=== PATIENT | male | born 1965 | race Caucasian/White ===

== ENCOUNTER 2020-06-04 08:23 | Outpatient (REF) | payer SELFPAY | END 2020-06-04 08:24 | disposition home or self-care (01) | LOC: HO.LAB 08:23 | PROVIDERS: Visit Provider Internal Medicine | DX: Z20.828 Contact with and (suspected) exposure to other viral communicable diseases (principal) | CPT/HCPCS: C9803; U0003 ==

== ENCOUNTER 2023-08-05 11:37 | Inpatient (IN) | payer OTHER, SELFPAY ==
[2023-08-05] VITALS (7 sets, daily range): BP systolic 133–225; BP diastolic 76–126; PULSE 73–102; RESP 16–20; TEMP 35.8–36.8; O2SAT 96–99; BMI 36.5
--- NOTE | ~2023-08-05 | US_ITS ---
EXAMINATION: US VENOUS ULTRASOUND WITH DOPPLER LOWER EXTREMITY, BILATERAL CLINICAL INFORMATION: Bilateral lower extremity swelling. COMPARISON: None available. TECHNIQUE: Ultrasound of the deep veins is performed from the hip to the calf with compression sonography and color and pulse Doppler assessment. Spectral analysis with color-flow imaging is performed. FINDINGS: RIGHT: There is normal venous compression and respiratory variation and augmented flow. The visualized common femoral vein, superficial femoral vein, profunda femoral vein, popliteal vein, and the trifurcation region shows no evidence of deep venous thrombosis. There is no significant popliteal fossa cyst. Incidental finding of small lymph node in the right groin measuring 1.5 cm. Moderate soft tissue edema seen in the right calf LEFT: There is normal venous compression and respiratory variation and augmented flow. The visualized common femoral vein, superficial femoral vein, profunda femoral vein, popliteal vein, and the trifurcation region shows no evidence of deep venous thrombosis. There is no significant popliteal fossa cyst. There is slow rouleaux flow seen within the left greater saphenous vein internal finding of a small lymph node in the left groin measuring 2.6 cm in length. Mild edema seen in the left calf. If the patient's symptoms persist, followup ultrasound in 5 days 7 days might be of value to exclude proximal propagation from a non-visualized calf vein. US/US venous duplex LE BI IMPRESSION: No DVT demonstrated in bilateral lower extremity. Slow rouleaux flow seen in the left greater saphenous vein
--- NOTE | ~2023-08-05 | XR_ITS ---
EXAMINATION: XR CHEST CLINICAL INFORMATION: Shortness of breath. COMPARISON: None available. TECHNIQUE: AP view of the chest was obtained. FINDINGS: Normal heart size. No focal airspace opacities, pleural effusion or pneumothorax. Minimal subsegmental atelectasis in the left lower lobe. No acute osseous findings. Visualized upper abdomen is within normal limits. XR/XR chest 1V IMPRESSION: Minimal subsegmental atelectasis in the left lower lobe. Otherwise, unremarkable examination.
--- NOTE | 2023-08-05 11:56 | ED_ITS ---
HPI - General Adult General Chief complaint: Extremity Problem Stated complaint: Swelling in legs & hands Time Seen by Provider: 08/05/23 12:41 Source: patient Mode of arrival: ambulatory Limitations: no limitations History of Present Illness HPI narrative: This is 58 years old male presented to the emergency department with a chief complaint of lower extremity edema also elevated blood pressure. Symptoms have been ongoing through 3 days he does have history of hypertension he takes nifedipine 30 mg q 24 hour and carvedilol 12.5 Onset (ago): day(s) (3) Location: lower extremity Radiation: non-radiation Severity: moderate Pain Consistency: constant Relieving factors: none Exacerbating factors: none Associated symptoms: denies other symptoms Related Data Allergies Allergy/AdvReac Type Severity Reaction Status Date / Time No Known Allergies Allergy Verified 08/05/23 11:56 Review of Systems 2 Constitutional: Constitutional: Reports no additional constitutional complaints ENT: Reports system reviewed and no additional complaints, except as documented Cardiovascular: Cardiovascular: Reports no additional cardiovascular complaints [facility] Past Medical History Attestation statement: The following information was validated with the patient. [facility] Narrative: Hypertension Medical History Hypercholesterolemia Hypertension Diabetes Social History Social History Alcohol intake: current Alcohol type: beer Smoked in Last 30 Days: No Use of substances other than those prescribed or required for medical reasons: No Advance Directives: No Physical Exam ED Vital Signs: Vital Signs - 24 hr 08/05/23 11:57 08/05/23 13:25 08/05/23 14:26 Temperature 96.4 F L Pulse Rate 90 81 75 Respiratory Rate 16 18 20 Blood Pressure 225/120 H 218/126 H 181/105 H Pulse Oximetry 98 97 98 Oxygen Delivery Method Room Air Room Air Room Air BMI result Body Mass Index 36.5 Const General: cooperative Nutritional Appearance: average body habitus Orientation/consciousness: patient oriented x3 Limitations: no limitations HENMT Head: Yes normal to inspection General nose exam: Normal external nose present Mouth: Normal oral and palatal mucosa present Neck Neck: Yes normal visual inspection Chest Chest palpation & inspection: normal inspection of the chest Resp Effort & Inspection: normal respiratory effort Auscultation: clear to auscultation bilaterally Percussion: percussion normal Cardio Jugular venous distension: no JVD Rate: regular rate Rhythm: regular rhythm GI Inspection: Yes normal to inspection Palpation (GI): Soft to palpation Skin General skin exam: no rashes or lesions noted Lesions: no lesions Rashes: no rashes Neuro General: patient oriented x3 Cranial nerves: Yes CN's II-XII intact bilaterally Extrem Other: 3+ edema bilaterally Course Course Course Narrative: RME: 58 year-old M w/PMHx HTN, DM, presenting to the ED c/o bilateral hand and leg swelling worsening over the past few weeks. denies SOB. Saw PCP last week (mejias Brittaney) and had outpatient labs but has no results yet per patient. Denies RODRIGUEZ, visual changes. Patient is poor historian Very HTNsive in triage 225/120 & 201/116 (patient unsure if he took his meds this morning) Labs, UA, US ordered Full HPI, ROS and PE to be performed by primary ED provider. Medications Administered Generic Name Dose Route Start Last Admin Trade Name Freq PRN Reason Stop Dose Admin Enoxaparin Sodium 40 mg 08/05/23 15:30 08/05/23 15:22 Enoxaparin Sodium 40 Mg/0.4 Ml Syringe SUBCUT 40 mg Q24H SWETHA Administration Sodium Chloride 3 ml 08/05/23 16:00 08/05/23 15:24 0.9 % Sodium Chloride Flush 3 Ml Syringe IVFLUSH 3 ml QSHIFT SWETHA Administration Discontinued Medications Generic Name Dose Route Start Last Admin Trade Name Freq PRN Reason Stop Dose Admin Clonidine HCl 0.1 mg 08/05/23 12:51 08/05/23 13:02 Clonidine Hcl 0.1 Mg Tablet PO 08/05/23 12:52 0.1 mg ONCE ONE Administration Protocol Furosemide 40 mg 08/05/23 12:44 08/05/23 13:22 Furosemide 40 Mg/4 Ml Vial IVPUSH 08/05/23 12:45 40 mg ONCE ONE Administration Protocol Labetalol HCl 200 mg 08/05/23 15:15 08/05/23 15:22 Labetalol Hcl 200 Mg Tablet PO 08/05/23 15:16 200 mg ONCE ONE Administration Protocol Medical Decision Making Medical Decision Making [facility] Narrative: Patient presented with lower extremity edema is also very hypertensive we get lab EKG, Differential Diagnosis Differential Diagnoses: The differential diagnosis associated with the presentation includes DVT/nephrotic syndrome hypertensive urgency Admission/Observation Consideration of admission/observation: Escalation of care including admission/observation considered Consult Healthcare Provider Management of the patient was discussed with: Hospitalist Lab Data MDM Lab Attestation statement: I reviewed the patient's lab results. 08/05/23 12:15 08/05/23 12:15 Labs: Lab Results 08/05/23 Range/Units 12:15 WBC 6.1 (4.8-10.8) X10*3/uL RBC 4.49 L (4.60-5.80) X10*6/uL Hgb 12.9 L (14.0-18.0) g/dl Hct 38.5 L (42.0-52.0) % MCV 85.7 (80.0-98.0) fL MCH 28.7 (27.0-33.0) pg MCHC 33.5 (31.0-36.0) g/dl RDW 14.0 (11.0-16.0) % Plt Count 269 (160-400) X10*3/uL MPV 9.8 (9.4-12.4) fL Immature Gran % (Auto) 0.3 (0.0-0.4) % Neut % (Auto) 61.6 (45-73) % Lymph % (Auto) 28.7 (20-40) % [place] % (Auto) 7.1 (2-11) % Eos % (Auto) 2.0 (0-4) % Baso % (Auto) 0.3 (0-2) % Lymph # (Auto) 1.8 (1.2-4.9) X10*3/uL [place] # (Auto) 0.4 (0.1-1.2) X10*3/uL Eos # (Auto) 0.1 (0.0-0.4) X10*3/uL Baso # (Auto) 0.0 (0.0-0.2) X10*3/uL Abs Immat Gran (auto) 0.02 (0.00-0.03) X10*3/uL Absolute Neuts (auto) 3.8 (2.0-8.3) x10*3/uL Absolute Nucleated RBC 0.000 (0.0-0.012) X10*3/uL Nucleated RBC % (auto) 0.0 (0.0-0.2) /100WBC PT 10.2 L (11.1-13.3) SEC INR 0.8 L (0.9-1.1) Sodium 139 (135-145) mmol/L Potassium 3.8 (3.3-5.1) mmol/L Chloride 110 H (96-108) mmol/L Carbon Dioxide 23 (22-29) mmol/L Anion Gap 10 L (12-20) BUN 25 H (9-16) mg/dL Creatinine 1.68 H (0.5-1.4) mg/dL Estim Creat Clear Calc 55.9 Estimated GFR 42 Random Glucose 205 H (60-115) mg/dL Calcium 8.8 (8.4-10.2) mg/dL Magnesium 2.0 (1.6-2.6) mg/dL Total Bilirubin 0.2 (0.0-1.0) mg/dL Direct Bilirubin < 0.2 (0.0-0.5) mg/dL AST 15 (5-37) U/L ALT 16 (0-40) U/L Alkaline Phosphatase 102 (39-117) U/L Troponin I High Sens 12.7 (<3.5-35.0) ng/L B-Natriuretic Peptide 111 H (<100) pg/mL Total Protein 5.7 L (6.5-8.0) g/dL Albumin 2.4 L (3.5-5.0) g/dL Independent Interpretation I performed an independent interpretation of an: EKG, Plain X-Ray and Ultrasound Radiology Impression Discussion of test interpretation with radiology: I have reviewed the radiologist's reading. Independent Historian Clinical information obtained from an independent historian. History obtained from or confirmed by: Other (sister) Chronic Conditions Patient?s care impacted by: Hypertension Critical Care Time Critical Care Time Critical Care Time: Yes Total Critical Care Time: 60 Attestation: IV lasix,treatment of hypertensive urgency Discharge Plan Discharge Clinical Impression: Anasarca, Hypertensive urgency Patient Disposition: Admitted As Inpatient
--- NOTE | 2023-08-05 12:03 | ECG_ITS ---
Test Reason : HTNSIVE Blood Pressure : / mmHG Vent. Rate : 085 BPM Atrial Rate : 085 BPM P-R Int : 154 ms QRS Dur : 088 ms QT Int : 366 ms P-R-T Axes : 005 -05 014 degrees QTc Int : 435 ms Normal sinus rhythm Minimal voltage criteria for LVH, may be normal variant ( R in aVL ) Borderline ECG No previous ECGs available Referred By: Sendy Hollingsworth Electronically Signed By:TRACEY PARKS MD
[2023-08-05 12:20] LABS: MANUAL DIFF FLAG NO
[2023-08-05 12:22] LABS: Basophils Percent Auto 0.3 % (0-2); Eosinophils Absolute Auto 0.1 X10*3/uL (0.0-0.4); Hematocrit 38.5 % (42.0-52.0); Hemoglobin 12.9 g/dl (14.0-18.0); Imm Gran Abs Auto 0.02 X10*3/uL (0.00-0.03); Imm Gran Pct Auto 0.3 % (0.0-0.4); Lymphocytes Absolute Auto 1.8 X10*3/uL (1.2-4.9); Lymphocytes Percent Auto 28.7 % (20-40); Mean Corpuscular HGB Conc 33.5 g/dl (31.0-36.0); Mean Corpuscular Hemoglobin 28.7 pg (27.0-33.0); Mean Corpuscular Volume 85.7 fL (80.0-98.0); Mean Platelet Volume 9.8 fL (9.4-12.4); Monocytes Absolute Auto 0.4 X10*3/uL (0.1-1.2); Monocytes Percent Auto 7.1 % (2-11); Neutrophils Absolute Auto 3.8 x10*3/uL (2.0-8.3); Neutrophils Percent Auto 61.6 % (45-73); Platelet Count 269 X10*3/uL (160-400); Red Blood Count 4.49 X10*6/uL (4.60-5.80); White Blood Count 6.1 X10*3/uL (4.8-10.8)
[2023-08-05 12:27] LABS: INTERNATIONAL NORM RATIO 0.8 (0.9-1.1); Prothrombin Time 10.2 SEC (11.1-13.3)
[2023-08-05 12:37] LABS: Alanine Aminotransferase 16 U/L (0-40); Albumin Level 2.4 g/dL (3.5-5.0); Alkaline Phosphatase 102 U/L (39-117); Anion Gap 10 (12-20); Aspartate Amino Transferase 15 U/L (5-37); Bilirubin Direct < 0.2 mg/dL (0.0-0.5); Bilirubin Total 0.2 mg/dL (0.0-1.0); Blood Urea Nitrogen 25 mg/dL (9-16); Calcium 8.8 mg/dL (8.4-10.2); Carbon Dioxide 23 mmol/L (22-29); Chloride 110 mmol/L (96-108); Creatinine Clr Calc Pharmacy 55.9; Estimated Glomerular Filt Rate 42; Glucose Random 205 mg/dL (60-115); Potassium 3.8 mmol/L (3.3-5.1); Sodium 139 mmol/L (135-145); Total Protein 5.7 g/dL (6.5-8.0)
[2023-08-05 12:43] LABS: B Type Natriuretic Peptide 111 pg/mL (<100)
[2023-08-05 12:44] LABS: Troponin-I High Sensitivity 12.7 ng/L (<3.5-35.0)
[2023-08-05] MEDS: cloNIDine HCL 0.1 MG TABLET PO (13:02)
--- NOTE | 2023-08-05 13:03 | PC.NURSE ---
pt medicated for bp, but unable to give lasix yet as pt is having an US and unable to put in iv in yet
--- NOTE | 2023-08-05 13:08 | PC.NURSE ---
patient a&ox3, pt notable htn in triage, BLE 3+ pitting edema, left hand 3+ edema noted as well, pt also has distended firm abdomen-denies pain to area, lungs clear/diminished throughout, iv to be inserted and pt will be medicated upon insertion, quality assurance monitor body intact, call celestin within reach, will continue to monitor
[2023-08-05] MEDS: Furosemide 40 MG/4 ML VIAL IVPUSH (13:22)
--- NOTE | 2023-08-05 14:54 | P.HPHOSP_ITS ---
History of Present Illness Date of Service: 08/05/23 Chief Complaint: Shortness of breath, leg edema The 58-year-old male with hypertension on Nifedipine 30 mg daily, Lisinopril 40 mg daily, and Coreg 12.5 mg twice daily, as well as hyperlipidemia and diabetes, presents with increasing leg edema for 3 to 4 days, worsened since yesterday. He also describes intermittent shortness of breath with exertion but no paroxysmal nocturnal dyspnea (PND) or orthopnea. He states that he had an accident last March and as a result has had swelling of the left leg, but now has swelling in both legs. Ultrasound of the legs is negative for deep vein thrombosis (DVT), BNP is 111, and chest X-ray shows no discrete signs of heart failure. It is also noteworthy that his blood pressure was 225/110 on arrival and is now 183/110 following Clonidine 0.1 mg and labetalol 20 mg. Creatinine is 1.68, last know Creatine in 2021 was 1.2 Review of Systems 2 Review of Systems: Gen: no fever Resp: no sob, no cough CV: no chest, + VAZQUEZ, + leg edema GI: No n/v, no abd pain Neuro: No confusion Yes all other systems are reviewed and are negative [facility] Medical History Hypercholesterolemia Hypertension Diabetes Social History Alcohol intake: current Alcohol type: beer Smoked in Last 30 Days: No Use of substances other than those prescribed or required for medical reasons: No Advance Directives: No Meds Allergies Allergy/AdvReac Type Severity Reaction Status Date / Time No Known Allergies Allergy Verified 08/05/23 11:56 Home Medications Medication Instructions Recorded Confirmed Last Taken Type acetaminophen 325 mg tablet 650 mg PO Q4H PRN Pain (Scale 08/05/23 08/05/23 Unknown History Score 1-3) atorvastatin 80 mg tablet 80 mg PO BEDTIME 08/05/23 08/05/23 08/04/23 History carvedilol 12.5 mg tablet 12.5 mg PO BID 08/05/23 08/05/23 08/04/23 History diclofenac sodium 1 % topical gel 1 g topical TID PRN pain 08/05/23 08/05/23 Unknown History glipizide 10 mg tablet, extended 10 mg PO DAILY 08/05/23 08/05/23 08/04/23 History release 24 hr ipratropium 0.5 mg-albuterol 3 mg 3 ml inhalation QID PRN Shortness 08/05/23 08/05/23 Unknown History (2.5 mg base)/3 mL nebulization Of Breath Or Wheezing soln lisinopril 40 mg tablet 40 mg PO DAILY 08/05/23 08/05/23 08/04/23 History loratadine 10 mg tablet 10 mg PO DAILY 08/05/23 08/05/23 08/04/23 History metformin 1,000 mg tablet 1,000 mg PO BIDWM 08/05/23 08/05/23 08/04/23 History nifedipine 30 mg tablet,extended 30 mg PO DAILY 08/05/23 08/05/23 08/04/23 History release sertraline 50 mg tablet 50 mg PO BEDTIME 08/05/23 08/05/23 08/04/23 History Physical Exam 2 Vital Signs and Narrative: Vital Signs: Last Vital Signs Temp 96.4 F L 08/05/23 11:57 Pulse 75 08/05/23 14:26 Resp 20 08/05/23 14:26 BP 181/105 H 08/05/23 14:26 Pulse Ox 98 08/05/23 14:26 O2 Del Method Room Air 08/05/23 14:26 BMI result Body Mass Index 36.5 Constitutional: Alert, in no distress, overweight. Mental Status: Oriented to person, place and time. Eyes: Pupils are equal, round and reactive to light. Ear, Nose and Throat: Oropharynx clear, mucous membranes moist. Ears and nose without eformities. Trachea midline. Respiratory: Clear to auscultation. No wheezing, rales or rhonchi. Cardiovascular: S1 S2 regular. No murmurs, rubs or gallops 3 + leg edema Gastrointestinal: Abdomen soft, non-tender, non-distended. Normal bowel sounds.? Neurologic: Cranial nerves II-XII grossly intact. No focal neurological deficits. Moves all extremities spontaneously.? Skin: No rashes or lesions.? Musculoskeletal: No cyanosis or clubbing. Psychiatric: Normal mood and affect? Results Labs 08/05/23 12:15 08/05/23 12:15 Labs: Laboratory Results - last 24 hr 08/05/23 12:15 MCV 85.7 MCH 28.7 MCHC 33.5 RDW 14.0 Plt Count 269 MPV 9.8 Immature Gran % (Auto) 0.3 Neut % (Auto) 61.6 Lymph % (Auto) 28.7 [place] % (Auto) 7.1 Eos % (Auto) 2.0 Baso % (Auto) 0.3 Lymph # (Auto) 1.8 [place] # (Auto) 0.4 Eos # (Auto) 0.1 Baso # (Auto) 0.0 Abs Immat Gran (auto) 0.02 Absolute Neuts (auto) 3.8 Absolute Nucleated RBC 0.000 Nucleated RBC % (auto) 0.0 PT 10.2 L INR 0.8 L Anion Gap 10 L Estim Creat Clear Calc 55.9 Estimated GFR 42 Random Glucose 205 H Calcium 8.8 Magnesium 2.0 Total Bilirubin 0.2 Direct Bilirubin < 0.2 AST 15 ALT 16 Alkaline Phosphatase 102 Troponin I High Sens 12.7 B-Natriuretic Peptide 111 H Total Protein 5.7 L Albumin 2.4 L Imaging Radiologist's Impressions: Impressions Venous Duplex 08/05/23 12:58 IMPRESSION: No DVT demonstrated in bilateral lower extremity. Slow rouleaux flow seen in the left greater saphenous vein Chest X-Ray 08/05/23 13:57 IMPRESSION: Minimal subsegmental atelectasis in the left lower lobe. Otherwise, unremarkable examination. Assessment and Plan (1) Hypertensive urgency: Status: Acute (2) Heart failure: Status: Acute Plan A 58-year-old male with hypertension (HTN) on Nifedipine 30 mg daily, Lisinopril 40 mg daily, Coreg 12.5 mg twice daily, hyperlipidemia (HLD), and diabetes presents with increasing leg edema, shortness of breath, and hypertensive urgency. He is diagnosed with hypertensive emergency with leg edema and heart failure. He is admitted, and an echocardiogram is requested. Cardiology consult. IV Lasix is continued, and BMP and renal function are closely monitored. Coreg and Nifedipine are continued, with dose adjustments as needed. It is noted that Nifedipine, a calcium channel ramesh (CCB), can worsen leg edema. Hydralazine is added for blood pressure control, and Lisinopril is held until baseline renal function is established. Hyperlipidemia, Lipitor is continued. Diiabetes, he is on Glipizide XL 10 and metformin 1 gm bid, but metformin is held due to renal failure. Subcutaneous insulin (SSI) is initiated, Glipizide is resumed, and a diabetic diet is followed. The patient is admitted for at least 2 midnights for management of acute hypertensive emergency needing IV therapy. DVT prophylaxis with Lovenox is initiated. He is designated as a full code. Quality Stroke Does the patient have a stroke diagnosis?: No VTE Prior VTE?: No VTE Risk Level:: Medical - moderate - high VTE Device Contraindication: Treatment Not Indicated VTE Drug Contraindication: N/A - Med Ordered
[2023-08-05] MEDS: Enoxaparin Sodium 40 MG/0.4 ML SYRINGE SUBCUT (15:22)
[2023-08-05] MEDS: Labetalol HCL 200 MG TABLET PO (15:22)
--- NOTE | 2023-08-05 15:23 | PC.NURSE ---
pt medicated per order
[2023-08-05] MEDS: 0.9 % Sodium Chloride Flush 3 ML SYRINGE IVFLUSH ×2 (15:24→23:29)
--- NOTE | 2023-08-05 16:18 | PHA.MEDREC ---
Pharmacy Consult ? Medication Reconciliation Pharmacy has completed the medication reconciliation. spoke with patients regarding home med list. had a list of medications at home. listed all meds. patient is on lisinopril but looks like he has not filled this medication since february.
[2023-08-05 17:03] LABS: Glucose, Whole Blood 127 mg/dL (60-115)
[2023-08-05 21:11] LABS: Glucose, Whole Blood 250 mg/dL (60-115)
[2023-08-05] MEDS: Insulin Lispro 100 UNIT/ML 3 ML VIAL SUBCUT (21:11)
[2023-08-05] MEDS: Sertraline HCL 50 MG TABLET PO (21:12)
[2023-08-05] MEDS: Atorvastatin Calcium 80 MG TABLET PO (21:12)
[2023-08-05] MEDS: hydrALAZINE HCl 10 MG TABLET 20 MG PO (21:12)
[2023-08-05] MEDS: carvediloL 12.5 MG TABLET PO (21:12)
[2023-08-05] MEDS: Melatonin 3 MG TABLET 6 MG PO (21:12)
[2023-08-06] VITALS (10 sets, daily range): BP systolic 121–183; BP diastolic 73–103; PULSE 64–83; RESP 16–18; TEMP 36.3–37.2; O2SAT 96–98
--- NOTE | 2023-08-06 07:00 | CA_ITS ---
Transthoracic Echocardiogram Patient (Last, First, Middle): Dillon Lucio, Gender: Male Date of : 1965 Age: 58 Procedure Date: 08/06/2023 Procedure Type: Transthoracic Echocardiogram [place] [facility] [place]: 172.72 cm Weight: 108.86 kg BSA: 2.21 m2 Heart Rate: 65 bpm BP: 183 / 110 mmHg [employer] Salesperson: BRYANT Referring MD: Dashawn Juárez MD Assistant Librarian: Lewis Willett MD Symptoms: leg edema, heart failure Study Quality: Good ECG Rhythm: Sinus Conclusions: - 1. Low normal LV ejection fraction 50-55% with severe LVH with impaired relaxation filling pattern 2. Normal cardiac valvular Dopplers 3. Normal measured RV systolic pressure 4. Upper limits of normal ascending aortic size at 3.6 cm 5. No gross pericardial effusion Findings Left Ventricle Normal left ventricular size and systolic function. There is severely increased left ventricular wall thickness. The visually estimated ejection fraction is between 50-55%. Spectral Doppler is indicative of an impaired relaxation filling pattern. E/E prime ratio is between 8 and 15 consistent with indeterminate filling pressures. Peak GLS is -17.3%, which is borderline low. Right Ventricle Normal right ventricular cavity size and systolic function. Atria The left atrium is likely dilated. There is no evidence of interatrial shunt. The right atrium is normal in size. Aortic Valve There is mild calcification of the aortic valve. There is no aortic valve stenosis. There is no aortic valve regurgitation. Mitral Valve There is mild anterior and posterior mitral leaflet thickening. There is trace mitral valve regurgitation. There is no mitral valve stenosis. Pulmonic Valve The pulmonic valve is likely normal. Tricuspid Valve Likely normal tricuspid valve structure and function. There is trace tricuspid valve regurgitation. The right ventricular systolic pressure is 16 mmHg. Normal right atrial pressure. There is no evidence of pulmonary hypertension. Great Vessels The pulmonary artery was not well visualized. Venous The inferior vena cava is normal in size and collapses greater than 50% with inspiration. Pericardium/Pleural There is no evidence of pericardial effusion. Prior Study Comparison No prior study available for comparison. Measurements 2D Linear Measurements IVSd: 1.57 0.6-0.9/0.6-1.0 cm LVIDd: 4.19 3.9-5.3/4.2-5.9 cm LVIDd Index: 1.90 2.4-3.2/2.2-3.1 cm/m2 LVIDs: 3.06 2.0-3.6 cm LVPWd: 1.65 0.7-1.1 cm LA Diam: 4.40 2.7-3.8/3.0-4.0 cm LAIDs Index: 1.99 1.5-2.3 cm/m2 LV Mass: 346.64 67-162/88-224 g LV Mass Index: 156.85 43-95/49-115 g/m2 LVOT Diam: 2.60 3.0+(-)1.3 cm 2D Systolic Function EF 4C: 51.40 >55% EF 2C: 53.20 >55% EF BiP: 52.60 >55% Mitral Valve MV Pk E: 0.36 MV PK A: 0.87 MV Decel Time: 192.00 E/A: 0.40 E'Lateral: 5.33 E'Medial: 5.00 E/E' Med: 7.30 E/E' Lat: 6.80 PHT: 56.00 MVA PHT: 3.93 Decel Love: 3.03 Aortic Valve AoV Pk Mason: 1.46 AoV Mn Mason: 0.97 AoV VTI: 0.37 AoV Pk Grad: 9.00 Aov Mn Grad: 4.00 MYRTLE Cont.VTI: 3.59 LVOT LVOT Pk Mason: 1.01 LVOT Mn Mason: 0.60 LVOT VTI: 0.25 LVOT Pk Grad: 4.00 LVOT Mn Grad: 2.00 LVOT Diam: 2.60 LVOT Area: 5.31 Diastolic Function MV Pk E: 0.36 MV Pk A: 0.87 E/A: 0.40 E'Medial: 5.00 E/E' Med: 7.30 E' Laterial: 5.33 E/E' Lat: 6.80 Right Ventricle TAPSE (mm): 24.40 TVS' Mason: 14.70 Tricuspid Valve TR Pk Mason: 1.79 TR Pk Grad: 13.00 RA Press: 3.00 RVSP: 16.00 Great Vessels Aorta Sinus of Valsalva: 3.60 2.0-3.5 cm Ao Asc: 3.60 2.1-3.4 cm Pulmonary Valve PV Pk Mason: 0.98 Peak PV Grad: 4.00 Updated in Other Vendor System with Status of Final Lewis Willett MD electronically signed on 08/06/2023 10:40:10 AM with status of Final
[2023-08-06 07:01] LABS: Anion Gap 11 (12-20); Blood Urea Nitrogen 25 mg/dL (9-16); Calcium 7.9 mg/dL (8.4-10.2); Carbon Dioxide 22 mmol/L (22-29); Chloride 111 mmol/L (96-108); Creatinine Clr Calc Pharmacy 65.2; Estimated Glomerular Filt Rate 50; Glucose Random 120 mg/dL (60-115); Potassium 3.9 mmol/L (3.3-5.1); Sodium 140 mmol/L (135-145)
[2023-08-06] MEDS: glipiZIDE XL 10 MG TAB.ER.24 PO (07:28)
[2023-08-06] MEDS: Furosemide 40 MG/4 ML VIAL IVPUSH (07:28)
[2023-08-06] MEDS: NIFEdipine ER 30 MG TAB.ER.24 PO (07:28)
[2023-08-06] MEDS: carvediloL 12.5 MG TABLET PO ×2 (07:28→19:48)
[2023-08-06] MEDS: hydrALAZINE HCl 10 MG TABLET 20 MG PO ×3 (07:28→19:48)
[2023-08-06] MEDS: Loratadine 10 MG TABLET PO (07:28)
[2023-08-06] MEDS: 0.9 % Sodium Chloride Flush 3 ML SYRINGE IVFLUSH ×3 (07:31→19:48)
[2023-08-06 07:49] LABS: Glucose, Whole Blood 130 mg/dL (60-115)
--- NOTE | 2023-08-06 09:43 | MHC.CM.PN ---
Pt lives at home alone, self-care and will transport himself home (car is in lot). HCP completed with pt, now on file. PCP: Dr. Chris Boucher
--- NOTE | 2023-08-06 09:54 | P.PNIM_ITS ---
Subjective Subjective Date of Service: 08/06/23 Interval History: He is feeling a lot better, still has swelling in the legs and blood pressures are better too Physical Exam 2 Vital Signs: Vital Signs: Last Vital Signs Temp 97.6 F 08/06/23 07:01 Pulse 64 08/06/23 07:01 Resp 18 08/06/23 07:01 BP 145/80 H 08/06/23 08:27 Pulse Ox 98 08/06/23 07:01 O2 Del Method Room Air 08/06/23 07:01 O2 Flow Rate 98 08/06/23 07:01 FiO2 98 08/06/23 07:01 BMI result Body Mass Index 36.5 General: AO X 3, no acute distress Resp: rales at bases CVS: S1,S2,RRR, 2+ leg edema GI: +BS, NT, no distention Skin: No rash Neuro: motor grossly intact Psych: appropriate affect Objective Data Active Medications Albuterol/Ipratropium (Albuterol/Iprat 2.5/0.5mg 3 Ml Ampul.Neb) 3 ml INHALE RQID PRN PRN Reason: Shortness Of Breath Or Wheezing Atorvastatin Calcium (Atorvastatin Calcium 80 Mg Tablet) 80 mg PO BEDTIME [facility] Last Admin: 08/05/23 21:12 Dose: 80 mg Documented By: NIA Carvedilol (Carvedilol 12.5 Mg Tablet) 12.5 mg PO BID [facility]; Protocol Last Admin: 08/06/23 07:28 Dose: 12.5 mg Documented By: KRISSY Dextrose (Dextrose 50 % 25 Gm/50 Ml Syringe) 25 gm IVPUSH Q15M PRN; Protocol PRN Reason: per Hypoglycemia Standing Ord. Enoxaparin Sodium (Enoxaparin Sodium 40 Mg/0.4 Ml Syringe) 40 mg SUBCUT Q24H [facility] Last Admin: 08/05/23 15:22 Dose: 40 mg Documented By: ZOHRA Furosemide (Furosemide 40 Mg/4 Ml Vial) 40 mg IVPUSH DAILY [facility]; Protocol Last Admin: 08/06/23 07:28 Dose: 40 mg Documented By: KRISSY Glipizide (Glipizide Xl 10 Mg Tab.Er.24) 10 mg PO DAILY [facility] Last Admin: 08/06/23 07:28 Dose: 10 mg Documented By: KRISSY Glucose (Glucose Gel 15 Gm Gel..Gram.) 15 gm PO Q15M PRN; Protocol PRN Reason: per Hypoglycemia Standing Ord. Hydralazine HCl (Hydralazine Hcl 10 Mg Tablet) 20 mg PO TID [facility]; Protocol Last Admin: 08/06/23 07:28 Dose: 20 mg Documented By: KRISSY Insulin Human Lispro (Insulin Lispro 100 Unit/Ml 3 Ml Vial) 0 unit SUBCUT QIDACHS [facility]; Protocol Last Admin: 08/06/23 07:43 Dose: Not Given Documented By: KRISSY Non-Admin Reason: No Insulin Coverage Loratadine (Loratadine 10 Mg Tablet) 10 mg PO DAILY [facility] Last Admin: 08/06/23 07:28 Dose: 10 mg Documented By: KRISSY Melatonin (Melatonin 3 Mg Tablet) 6 mg PO BEDTIME [facility] Last Admin: 08/05/23 21:12 Dose: 6 mg Documented By: NIA Nifedipine (Nifedipine Er 30 Mg Tab.Er.24) 30 mg PO DAILY [facility] Last Admin: 08/06/23 07:28 Dose: 30 mg Documented By: KRISSY Sertraline HCl (Sertraline Hcl 50 Mg Tablet) 50 mg PO BEDTIME [facility] Last Admin: 08/05/23 21:12 Dose: 50 mg Documented By: NIA Sodium Chloride (0.9 % Sodium Chloride Flush 3 Ml Syringe) 3 ml IVFLUSH QSHIFT [facility] Last Admin: 08/06/23 07:31 Dose: 3 ml Documented By: KRISSY Labs 08/05/23 12:15 08/06/23 06:10 Labs: Laboratory Results - last 24 hr 08/05/23 08/05/23 08/05/23 12:15 16:54 20:53 MCV 85.7 MCH 28.7 MCHC 33.5 RDW 14.0 Plt Count 269 MPV 9.8 Immature Gran % (Auto) 0.3 Neut % (Auto) 61.6 Lymph % (Auto) 28.7 [place] % (Auto) 7.1 Eos % (Auto) 2.0 Baso % (Auto) 0.3 Lymph # (Auto) 1.8 [place] # (Auto) 0.4 Eos # (Auto) 0.1 Baso # (Auto) 0.0 Abs Immat Gran (auto) 0.02 Absolute Neuts (auto) 3.8 Absolute Nucleated RBC 0.000 Nucleated RBC % (auto) 0.0 Hold Purple Top PT 10.2 L INR 0.8 L Anion Gap 10 L Estim Creat Clear Calc 55.9 Estimated GFR 42 POC Glucose 127 H 250 H Random Glucose 205 H Calcium 8.8 Magnesium 2.0 Total Bilirubin 0.2 Direct Bilirubin < 0.2 AST 15 ALT 16 Alkaline Phosphatase 102 Troponin I High Sens 12.7 B-Natriuretic Peptide 111 H Total Protein 5.7 L Albumin 2.4 L 08/06/23 08/06/23 06:10 07:05 MCV MCH MCHC RDW Plt Count MPV Immature Gran % (Auto) Neut % (Auto) Lymph % (Auto) [place] % (Auto) Eos % (Auto) Baso % (Auto) Lymph # (Auto) [place] # (Auto) Eos # (Auto) Baso # (Auto) Abs Immat Gran (auto) Absolute Neuts (auto) Absolute Nucleated RBC Nucleated RBC % (auto) Hold Purple Top SEE NOTE PT INR Anion Gap 11 L Estim Creat Clear Calc 65.2 Estimated GFR 50 POC Glucose 130 H Random Glucose 120 H Calcium 7.9 L D Magnesium Total Bilirubin Direct Bilirubin AST ALT Alkaline Phosphatase Troponin I High Sens B-Natriuretic Peptide Total Protein Albumin Assessment and Plan (1) Heart failure: Status: Acute (2) Hypertensive urgency: Status: Acute (3) Anasarca: Status: Acute Plan A 58-year-old male with hypertension (HTN) on Nifedipine 30 mg daily, Lisinopril 40 mg daily, Coreg 12.5 mg twice daily, hyperlipidemia (HLD), and diabetes presents with increasing leg edema, shortness of breath, and hypertensive urgency. Hypertensive emergency with leg edema and heart failure. Better following IV lasix, will have echocardiogram. Continue Coreg, aldactone 25 mg daily per cardiology. Follow i/o, weight, low salt diet. Daily BMP. Hypertension emergency--improved, continue Nifedipine, Hydralazine, Coreg.. He was on Lisinopril 40 daily, now on hold due to renal failure, however if renal function continues to improve, will restart tomorrow. Hyperlipidemia, Lipitor is continued. Diiabetes, he is on Glipizide XL 10 and metformin 1 gm bid, but metformin is held due to renal failure. Subcutaneous insulin (SSI) is initiated, diabetic diet Need for inpatient acute heart failure, needing DVT prophylaxis with Lovenox is initiated. He is designated as a full code. Quality Stroke Does the patient have a stroke diagnosis?: No VTE Prior VTE?: No VTE Risk Level:: Medical - moderate - high VTE Device Contraindication: Treatment Not Indicated VTE Drug Contraindication: N/A - Med Ordered
--- NOTE | 2023-08-06 09:59 | MHC.CLN ---
NUTRITION ADDED 2 G SODIUM TO DIET ORDER DUE TO HTN AND EDEMA. DIET=DIABETIC 1800 KCALS, 2 G SODIUM.
--- NOTE | 2023-08-06 11:26 | PM.CNCAR ---
History of Present Illness History of Present Illness Date of Service: 08/06/23 Requesting physician: Dashawn Juárez Consult reason: hypertension and congestive heart failure Chief complaint: HTN emergency, leg edema Narrative: I was consulted to see Dillon in cardiology consultation today for new onset CHF and hypertensive urgency. 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 He said he has longstanding hypertension which has not been controlled as outpatient. Denies any history of sleep apnea. Patient came to the hospital as he was having increased shortness of breath and bilateral lower extremity swelling. He says since his injury and left lower extremity swelling but noticed that over the last few days he had post leg swollen and was having pain. His also having increased shortness of breath and shortness of breath lying down. Measure blood pressure at home it was elevated. Came to the emergency room was noted to be having generalized swelling consistent with anasarca with significantly elevated blood pressure which was treated in the ER with clonidine and labetalol. Patient is also noted to have mildly elevated BNP was admitted. Was given Lasix and says overnight he is gone to the bathroom a lot of time although intake and output charts has not been monitored. Patient says he feels significantly better today. His blood pressure is slightly better control but still elevated. Echocardiogram bedside shows low normal LV ejection fraction with severe LVH consistent with hypertensive heart disease. EKG shows no acute changes with LVH criteria. Review of Systems Constitutional: Constitutional: Reports no additional constitutional complaints Eyes: Eyes: Reports no additional eye complaints Cardiovascular: Cardiovascular: Denies chest pain, Reports leg edema, Denies lightheadedness, Denies Loss of Consciousness, Denies palpitations, Reports dyspnea on exertion and Reports orthopnea Respiratory: Respiratory: Reports no additional respiratory complaints and Reports dyspnea on exertion Gastrointestinal: Gastrointestinal: Reports no additional gastrointestinal complaints Genitourinary: Genitourinary: Reports no additional male genitourinary complaints Musculoskeletal: Musculoskeletal: Reports no additional musculoskeletal complaints Integumentary/Breasts: Skin/Breast: Reports system reviewed and no additional complaints, except as docu Neurologic: Reports system reviewed and no additional complaints, except as documented Psychiatric: Psychiatric: Reports no additional psychiatric complaints Endocrine: Endocrine: Reports no additional endocrine complaints and Denies palpitations PMFSH Past Medical History Medical History Hypercholesterolemia Hypertension Diabetes Social History Social History Household Members: Family Housing: House Do you presently have visiting nurse or other home services: No Alcohol intake: current Alcohol type: beer Patient Tobacco Use Status: Never used Tobacco service: No Meds Allergies Allergy/AdvReac Type Severity Reaction Status Date / Time No Known Allergies Allergy Verified 08/05/23 11:56 Active Medications: Current Medications Albuterol/Ipratropium (Albuterol/Iprat 2.5/0.5mg 3 Ml Ampul.Neb) 3 ml INHALE RQID PRN PRN Reason: Shortness Of Breath Or Wheezing Atorvastatin Calcium (Atorvastatin Calcium 80 Mg Tablet) 80 mg PO BEDTIME [facility] Last Admin: 08/05/23 21:12 Dose: 80 mg Carvedilol (Carvedilol 12.5 Mg Tablet) 12.5 mg PO BID [facility]; Protocol Last Admin: 08/06/23 07:28 Dose: 12.5 mg Dextrose (Dextrose 50 % 25 Gm/50 Ml Syringe) 25 gm IVPUSH Q15M PRN; Protocol PRN Reason: per Hypoglycemia Standing Ord. Enoxaparin Sodium (Enoxaparin Sodium 40 Mg/0.4 Ml Syringe) 40 mg SUBCUT Q24H [facility] Last Admin: 08/05/23 15:22 Dose: 40 mg Furosemide (Furosemide 40 Mg/4 Ml Vial) 40 mg IVPUSH DAILY [facility]; Protocol Last Admin: 08/06/23 07:28 Dose: 40 mg Glipizide (Glipizide Xl 10 Mg Tab.Er.24) 10 mg PO DAILY [facility] Last Admin: 08/06/23 07:28 Dose: 10 mg Glucose (Glucose Gel 15 Gm Gel..Gram.) 15 gm PO Q15M PRN; Protocol PRN Reason: per Hypoglycemia Standing Ord. Hydralazine HCl (Hydralazine Hcl 10 Mg Tablet) 20 mg PO TID [facility]; Protocol Last Admin: 08/06/23 07:28 Dose: 20 mg Insulin Human Lispro (Insulin Lispro 100 Unit/Ml 3 Ml Vial) 0 unit SUBCUT QIDACHS [facility]; Protocol Last Admin: 08/06/23 07:43 Dose: Not Given Loratadine (Loratadine 10 Mg Tablet) 10 mg PO DAILY [facility] Last Admin: 08/06/23 07:28 Dose: 10 mg Melatonin (Melatonin 3 Mg Tablet) 6 mg PO BEDTIME [facility] Last Admin: 08/05/23 21:12 Dose: 6 mg Nifedipine (Nifedipine Er 30 Mg Tab.Er.24) 30 mg PO DAILY [facility] Last Admin: 08/06/23 07:28 Dose: 30 mg Sertraline HCl (Sertraline Hcl 50 Mg Tablet) 50 mg PO BEDTIME [facility] Last Admin: 08/05/23 21:12 Dose: 50 mg Sodium Chloride (0.9 % Sodium Chloride Flush 3 Ml Syringe) 3 ml IVFLUSH QSMIFT [facility] Last Admin: 08/06/23 07:31 Dose: 3 ml Spironolactone (Spironolactone 25 Mg Tablet) 25 mg PO DAILY [facility]; Protocol Home Medications Medication Instructions Recorded Confirmed Last Taken Type acetaminophen 325 mg tablet 650 mg PO Q4H PRN Pain (Scale 08/05/23 08/05/23 Unknown History Score 1-3) atorvastatin 80 mg tablet 80 mg PO BEDTIME 08/05/23 08/05/23 08/04/23 History carvedilol 12.5 mg tablet 12.5 mg PO BID 08/05/23 08/05/23 08/04/23 History diclofenac sodium 1 % topical gel 1 g topical TID PRN pain 08/05/23 08/05/23 Unknown History glipizide 10 mg tablet, extended 10 mg PO DAILY 08/05/23 08/05/23 08/04/23 History release 24 hr ipratropium 0.5 mg-albuterol 3 mg 3 ml inhalation QID PRN Shortness 08/05/23 08/05/23 Unknown History (2.5 mg base)/3 mL nebulization Of Breath Or Wheezing soln lisinopril 40 mg tablet 40 mg PO DAILY 08/05/23 08/05/23 08/04/23 History loratadine 10 mg tablet 10 mg PO DAILY 08/05/23 08/05/23 08/04/23 History metformin 1,000 mg tablet 1,000 mg PO BIDWM 08/05/23 08/05/23 08/04/23 History nifedipine 30 mg tablet,extended 30 mg PO DAILY 08/05/23 08/05/23 08/04/23 History release sertraline 50 mg tablet 50 mg PO BEDTIME 0208/05/23 08/04/23 History Physical Exam Vital Signs: Vital Signs: Last Vital Signs Temp 98.9 F 08/06/23 10:57 Pulse 72 08/06/23 10:57 Resp 18 08/06/23 10:57 BP 158/88 H 08/06/23 10:57 Pulse Ox 98 08/06/23 10:57 O2 Del Method Room Air 08/06/23 10:57 O2 Flow Rate 98 08/06/23 07:01 FiO2 98 08/06/23 07:01 BMI result Body Mass Index 36.5 Const: General: cooperative, comfortable, no acute distress, alert and awake Nutritional Appearance: obese Orientation/consciousness: patient oriented x3 HEENT: Head: Yes normocephalic and Yes atraumatic Neck: Neck: Yes trachea midline, Yes supple and Yes JVD Resp: Effort & Inspection: normal respiratory effort Auscultation: clear to auscultation bilaterally Cardio: Jugular venous distension: JVD Palpation: abnormal PMI displaced PMI Rate: regular rate Rhythm: regular rhythm Heart sounds: S1 normal heart sound present, S2 normal heart sound present, no click, no gallops, no murmurs, no rubs and Other heart sounds present (S4 present) GI: Auscultation: normal bowel sounds Skin: General skin exam: no rashes or lesions noted Neuro: General: patient oriented x3 and no focal motor deficits Extrem: General: No clubbing, No cyanosis and Yes edema Objective Labs and Meds 08/05/23 12:15 08/06/23 06:10 Lab results: Laboratory Results - last 24 hr 08/05/23 08/05/23 08/05/23 12:15 16:54 20:53 WBC 6.1 RBC 4.49 L Hgb 12.9 L Hct 38.5 L MCV 85.7 MCH 28.7 MCHC 33.5 RDW 14.0 Plt Count 269 MPV 9.8 Immature Gran % (Auto) 0.3 Neut % (Auto) 61.6 Lymph % (Auto) 28.7 [place] % (Auto) 7.1 Eos % (Auto) 2.0 Baso % (Auto) 0.3 Lymph # (Auto) 1.8 [place] # (Auto) 0.4 Eos # (Auto) 0.1 Baso # (Auto) 0.0 Abs Immat Gran (auto) 0.02 Absolute Neuts (auto) 3.8 Absolute Nucleated RBC 0.000 Nucleated RBC % (auto) 0.0 Hold Purple Top PT 10.2 L INR 0.8 L Sodium 139 Potassium 3.8 Chloride 110 H Carbon Dioxide 23 Anion Gap 10 L BUN 25 H Creatinine 1.68 H Estim Creat Clear Calc 55.9 Estimated GFR 42 POC Glucose 127 H 250 H Random Glucose 205 H Calcium 8.8 Magnesium 2.0 Total Bilirubin 0.2 Direct Bilirubin < 0.2 AST 15 ALT 16 Alkaline Phosphatase 102 Troponin I High Sens 12.7 B-Natriuretic Peptide 111 H Total Protein 5.7 L Albumin 2.4 L 08/06/23 08/06/23 06:10 07:05 WBC RBC Hgb Hct MCV MCH MCHC RDW Plt Count MPV Immature Gran % (Auto) Neut % (Auto) Lymph % (Auto) [place] % (Auto) Eos % (Auto) Baso % (Auto) Lymph # (Auto) [place] # (Auto) Eos # (Auto) Baso # (Auto) Abs Immat Gran (auto) Absolute Neuts (auto) Absolute Nucleated RBC Nucleated RBC % (auto) Hold Purple Top SEE NOTE PT INR Sodium 140 Potassium 3.9 Chloride 111 H Carbon Dioxide 22 Anion Gap 11 L BUN 25 H Creatinine 1.44 H Estim Creat Clear Calc 65.2 Estimated GFR 50 POC Glucose 130 H Random Glucose 120 H Calcium 7.9 L D Magnesium Total Bilirubin Direct Bilirubin AST ALT Alkaline Phosphatase Troponin I High Sens B-Natriuretic Peptide Total Protein Albumin Imaging Radiologist's impression: Impressions Venous Duplex 08/05/23 12:58 IMPRESSION: No DVT demonstrated in bilateral lower extremity. Slow rouleaux flow seen in the left greater saphenous vein Chest X-Ray 08/05/23 13:57 IMPRESSION: Minimal subsegmental atelectasis in the left lower lobe. Otherwise, unremarkable examination. Assessment and Plan (1) CHF exacerbation: Status: Acute Patient admitted with CHF exacerbation has improved significantly although intake and output chart has not been Isaac but still appears to be mildly fluid load. Continue 1 day of diuresis. Heart failure with preserved ejection fraction most likely secondary to hypertensive heart disease with severe LVH. Aggressive control blood pressure is recommended. Importance of good blood pressure control was discussed. Importance of salt control his diet was discussed. Add Aldactone 25 mg to his regimen. Continue other antihypertensive therapy. Continue monitor blood pressure closely. Strict intake and output chart needs to be pursued. Check BMP and BNP tomorrow. If okay by tomorrow can be discharged home. Will need outpatient workup with ischemic workup as well as workup for sleep apnea. Will follow with you Procedures Date of Service Date of Service: 08/06/23
[2023-08-06 11:31] LABS: Glucose, Whole Blood 142 mg/dL (60-115)
[2023-08-06] MEDS: Spironolactone 25 MG TABLET PO (13:10)
[2023-08-06] MEDS: Enoxaparin Sodium 40 MG/0.4 ML SYRINGE SUBCUT (15:41)
[2023-08-06 16:22] LABS: Glucose, Whole Blood 106 mg/dL (60-115)
[2023-08-06] MEDS: Sertraline HCL 50 MG TABLET PO (19:48)
[2023-08-06] MEDS: Melatonin 3 MG TABLET 6 MG PO (19:48)
[2023-08-06] MEDS: Atorvastatin Calcium 80 MG TABLET PO (19:48)
[2023-08-06] MEDS: Acetaminophen 325 MG TABLET 975 MG PO (20:16)
[2023-08-06 20:17] LABS: Glucose, Whole Blood 145 mg/dL (60-115)
[2023-08-07] VITALS: BP 148/89; PULSE 74; RESP 20; TEMP 36.3; O2SAT 95
[2023-08-07] MEDS: Acetaminophen 325 MG TABLET 975 MG PO ×2 (02:03→08:21)
[2023-08-07 03:32] VITALS: BP 150/80; PULSE 64; RESP 20; TEMP 36.1; O2SAT 97
[2023-08-07 06:43] LABS: Anion Gap 10 (12-20); Blood Urea Nitrogen 22 mg/dL (9-16); Calcium 7.9 mg/dL (8.4-10.2); Carbon Dioxide 25 mmol/L (22-29); Chloride 110 mmol/L (96-108); Creatinine Clr Calc Pharmacy 67.1; Estimated Glomerular Filt Rate 52; Glucose Random 112 mg/dL (60-115); Potassium 3.5 mmol/L (3.3-5.1); Sodium 141 mmol/L (135-145)
[2023-08-07 07:14] VITALS: BP 160/80; PULSE 72; RESP 18; TEMP 36.3; O2SAT 95
[2023-08-07 07:43] LABS: Glucose, Whole Blood 130 mg/dL (60-115)
[2023-08-07] MEDS: Furosemide 40 MG/4 ML VIAL IVPUSH (08:20)
[2023-08-07] MEDS: NIFEdipine ER 30 MG TAB.ER.24 PO (08:20)
[2023-08-07] MEDS: Spironolactone 25 MG TABLET PO (08:20)
[2023-08-07] MEDS: glipiZIDE XL 10 MG TAB.ER.24 PO (08:20)
[2023-08-07] MEDS: Loratadine 10 MG TABLET PO (08:20)
[2023-08-07] MEDS: hydrALAZINE HCl 10 MG TABLET 20 MG PO (08:20)
[2023-08-07] MEDS: carvediloL 12.5 MG TABLET PO (08:20)
[2023-08-07] MEDS: 0.9 % Sodium Chloride Flush 3 ML SYRINGE IVFLUSH (08:21)
[2023-08-07 09:36] LABS: B Type Natriuretic Peptide 148 pg/mL (<100)
--- NOTE | 2023-08-07 10:05 | PM.PNCARD ---
Subjective Subjective Date of Service: 08/07/23 Principal diagnosis: Uncontrolled hypertension, CHF. Interval history: Patient is feeling a lot better. Has diuresed well and kidney functions have improved. He feels lot better. No shortness of breath. Blood pressure still remains elevated. Review of Systems Review of Systems Yes all other systems are reviewed and are negative Physical Exam Vital Signs: Last Vital Signs Temp 97.4 F 08/07/23 07:14 Pulse 72 08/07/23 07:14 Resp 18 08/07/23 07:14 BP 160/80 H 08/07/23 07:14 Pulse Ox 95 08/07/23 07:14 O2 Del Method Room Air 08/07/23 07:14 O2 Flow Rate 98 08/06/23 07:01 FiO2 98 08/06/23 07:01 BMI result Body Mass Index 36.5 Const General: cooperative, comfortable, no acute distress, alert and awake Nutritional Appearance: obese Orientation/consciousness: patient oriented x3 HEENT Head: Yes normocephalic and Yes atraumatic Neck Neck: Yes trachea midline, Yes supple and Yes no JVD Resp Effort & Inspection: normal respiratory effort Auscultation: clear to auscultation bilaterally Cardio Jugular venous distension: no JVD Palpation: abnormal PMI displaced PMI Rate: regular rate Rhythm: regular rhythm Heart sounds: S1 normal heart sound present, S2 normal heart sound present, no click, no gallops, no murmurs, no rubs and Other heart sounds present (S4 present) GI Auscultation: normal bowel sounds Skin General skin exam: no rashes or lesions noted Neuro General: patient oriented x3 and no focal motor deficits Extrem General: No clubbing, No cyanosis and No edema Objective Labs and Meds 08/05/23 12:15 08/07/23 06:01 Lab results: Laboratory Results - last 24 hr 08/06/23 08/06/23 08/06/23 11:15 16:10 20:05 Sodium Potassium Chloride Carbon Dioxide Anion Gap BUN Creatinine Estim Creat Clear Calc Estimated GFR POC Glucose 142 H 106 145 H Random Glucose Calcium B-Natriuretic Peptide 08/07/23 08/07/23 08/07/23 06:01 07:13 08:52 Sodium 141 Potassium 3.5 Chloride 110 H Carbon Dioxide 25 Anion Gap 10 L BUN 22 H Creatinine 1.40 Estim Creat Clear Calc 67.1 Estimated GFR 52 POC Glucose 130 H Random Glucose 112 Calcium 7.9 L B-Natriuretic Peptide 148 H Progress Note: A&P Assessment and plan (1) CHF exacerbation: Status: Acute Assessment and Plan: CHF approves clinically well control at this point time. Will start him on p.o. Lasix 20 mg continue Aldactone. Will require outpatient workup for sleep apnea as well as myocardial ischemia. Aggressive control blood pressure is necessary. Patient can be potentially discharged home and follow-up as outpatient. (2) Hypertensive urgency: Status: Acute Assessment and Plan: Uncontrolled blood pressure. Planned to be discharged and follow-up as outpatient. Workup for secondary hypertension needs to be pursued. Increase carvedilol to 25 mg b.i.d. and nifedipine can be increased to 60 mg daily. Continue spironolactone and hydralazine which can be changed to 50 b.i.d.. Will follow up in outpatient in 7-10 days. Low-salt diet was discussed. Advised to avoid any strenuous exertion and next few weeks till follow-up. Advised to monitor blood pressure at home maintain a log. Will follow up in the clinic. Thank you for allowing me to partake in his care Time Spent With Patient Time: Total time managing care of this patient today ____ minutes. Progress Note: Quality Stroke Does the patient have a stroke diagnosis?: No Procedures Date of Service Date of Service: 08/07/23
[2023-08-07 11:21] VITALS: BP 162/78; PULSE 63; RESP 18; TEMP 36.1; O2SAT 96
[2023-08-07 11:45] LABS: Glucose, Whole Blood 216 mg/dL (60-115)
--- NOTE | 2023-08-07 12:06 | P.DS_ITS ---
DS: Providers Provider Date of Service: 08/07/23 Date of admission: 08/05/23 15:07 Date of discharge: 08/07/23 Primary care physician: Chris Boucher III, MD Consults: 08/05/23 15:03 Consult to Cardiology Routine Consulting Provider: [facility] Cardiovascular Services Reason for consultation: acute heart failure Has provider been notified: Yes DS: Diagnosis Discharge Diagnosis (1) CHF exacerbation: Status: Acute (2) Hypertensive urgency: Status: Acute DS: Summary Hospital Course Hospital Course: 1-year-old male with hypertension on Nifedipine 30 mg daily, Lisinopril 40 mg daily, and Coreg 12.5 mg twice daily, as well as hyperlipidemia and diabetes, presents with increasing leg edema for 3 to 4 days, worsened since yesterday. He also describes intermittent shortness of breath with exertion but no paroxysmal nocturnal dyspnea (PND) or orthopnea. He states that he had an accident last March and as a result has had swelling of the left leg, but now has swelling in both legs. Ultrasound of the legs is negative for deep vein thrombosis (DVT), BNP is 111, and chest X-ray shows no discrete signs of heart failure. It is also noteworthy that his blood pressure was 225/110 on arrival and is now 183/110 following Clonidine 0.1 mg and labetalol 20 mg. Creatinine is 1.68, last know Creatine in 2021 was 1.2 Hospital course Admitted to telemetry where monitor failed to demonstrate any pathological rhythms. He was seen in consultation by Cardiology; 2D echo done demonstrates LVEF of 50-55% with severe LVH. Normal right ventricular systolic pressure. Medicines were adjusted; carvedilol increased to 25 b.i.d.; nifedipine ER increased to 60 daily; Lasix 20 daily added and Aldactone 25 mg daily added. During his hospital course he was aggressively diuresed and on the day of discharge he has without an O2 requirement and is medically acceptable for discharge to home with follow-up with Cardiology Time Attestation Discharge coordination time: Greater than 30 minutes Quality: Safe Use of Opioids Does Pt have an Active Cancer Diagnosis on the Problem List?: No Quality: Stroke Does the patient have a stroke diagnosis?: No Physical Exam Vital Signs: Vital Signs: Last Vital Signs Temp 96.9 F 08/07/23 11:21 Pulse 63 08/07/23 11:21 Resp 18 08/07/23 11:21 BP 162/78 H 08/07/23 11:21 Pulse Ox 96 08/07/23 11:21 O2 Del Method Room Air 08/07/23 11:21 O2 Flow Rate 98 08/06/23 07:01 FiO2 98 08/06/23 07:01 BMI result Body Mass Index 36.5 Const: Other: Awake alert no acute distress Resp: Other: Clear to auscultation bilaterally no rales rhonchi or wheezes Cardio: Other: No S4; positive S1-S2; no S3 murmurs rubs or gallops GI: Other: Soft nontender nondistended normoactive bowel sounds Extrem: Other: No edema bilaterally DS: Data Data Completed and Pending Labs on day of discharge: Laboratory Results - last 24 hr 08/06/23 08/06/23 08/07/23 16:10 20:05 06:01 Sodium 141 Potassium 3.5 Chloride 110 H Carbon Dioxide 25 Anion Gap 10 L BUN 22 H Creatinine 1.40 Estim Creat Clear Calc 67.1 Estimated GFR 52 POC Glucose 106 145 H Random Glucose 112 Calcium 7.9 L B-Natriuretic Peptide 08/07/23 08/07/23 08/07/23 07:13 08:52 11:19 Sodium Potassium Chloride Carbon Dioxide Anion Gap BUN Creatinine Estim Creat Clear Calc Estimated GFR POC Glucose 130 H 216 H Random Glucose Calcium B-Natriuretic Peptide 148 H Discharge Plan Discharge Anticipated Discharge Date/Time: 08/07/23 11:58 Patient Disposition: Home, Self-Care Discharge Diagnosis: Hypertensiew urgency Referrals: Chris Boucher III, MD [Primary Care Provider] - 1 Week Discharge Medications: New nifedipine 30 mg Tablet Extended Release 24hr 60 mg PO DAILY Qty: 30 3RF Protocol: Hold for SBP< HOLD for SBP < : 90 hydralazine 10 mg Tablet 20 mg PO TID Qty: 90 2RF Protocol: Hold for SBP< HOLD for SBP < : 90 carvedilol 25 mg Tablet 25 mg PO BID Qty: 60 2RF Protocol: Hold for SBP/HR < HOLD for SBP < : 90 HOLD for HR < : 60 spironolactone 25 mg Tablet 25 mg PO DAILY Qty: 30 0RF Protocol: Hold for SBP< HOLD for SBP < : 90 furosemide [Lasix] 20 mg tablet 20 mg PO DAILY Qty: 30 3RF Continued atorvastatin 80 mg tablet 80 mg PO BEDTIME acetaminophen 325 mg Tablet 650 mg PO Q4H PRN (Reason: Pain (Scale Score 1-3)) ipratropium-albuterol 0.5 mg-3 mg(2.5 mg base)/3 mL solution for nebulization 3 ml inhalation QID PRN (Reason: Shortness Of Breath Or Wheezing) glipizide 10 mg tablet extended release 24hr 10 mg PO DAILY metformin 1,000 mg tablet 1,000 mg PO BIDWM lisinopril 40 mg tablet 40 mg PO DAILY sertraline 50 mg tablet 50 mg PO BEDTIME loratadine 10 mg tablet 10 mg PO DAILY diclofenac sodium 1 % gel 1 g topical TID PRN (Reason: pain) Discontinued carvedilol 12.5 mg tablet 12.5 mg PO BID nifedipine 30 mg tablet extended release 30 mg PO DAILY Discharge Orders: Discharge Order (Routine); Ordered 08/07/23 Ordered By: Ivan Jack Diet: Advance to usual diet Activity on Discharge: As tolerated Stand Alone Forms: Patient Portal Discharge page Care Plan Goals: Resume all medications as taken prior to hospital Health Concerns: Your Coreg has been increased to 25 mg twice daily; nifedipine ER has been increased to 60 mg once daily. Aldactone 25 mg has been added to your regimen daily. Lasix 20 has been added to your regimen daily. Plan of Treatment: Follow-up with Dr. Willett in office; his office will contact you with appointment Assessment: See discharge summary
--- NOTE | 2023-08-07 12:10 | MHC.CM.PN ---
Pt is medically cleared for D/C home self-care, pt will drive himself home (car is in lot).
== END 2023-08-07 13:13 | disposition home or self-care (01) | DRG 199 ==
LOC: HO.ED 15:17 → HO.EDOVER 15:18 → HO.IMC 17:07
PROVIDERS: Physician Assistant; Admitting Provider Internal Medicine; Emergency Provider Emergency Medicine; PCP Internal Medicine; Visit Provider Hospitalist
DX: I16.1 Hypertensive emergency (principal); I50.31 Acute diastolic (congestive) heart failure; E11.9 Type 2 diabetes mellitus without complications; I11.0 Hypertensive heart disease with heart failure; E78.00 Pure hypercholesterolemia, unspecified; Z79.84 Long term (current) use of oral hypoglycemic drugs; Z79.899 Other long term (current) drug therapy
CPT/HCPCS: 36415; 71045; 80048; 80076; 82947; 83735; 83880; 84484; 85025; 85610; 93005; 93306; 93356; 93970; 99285; J1650; J1940; Q9957

== ENCOUNTER → 2023-08-05 12:03 | Outpatient (BNV) | payer OTHER, SELFPAY | PROVIDERS: Admitting Provider Internal Medicine; Emergency Provider Emergency Medicine; PCP Internal Medicine; Visit Provider Internal Medicine Cardiovascular Disease | DX: I16.0 Hypertensive urgency (principal) | CPT/HCPCS: 93010 ==

== ENCOUNTER 2023-08-05 15:07 | Outpatient (BNV) | payer OTHER, SELFPAY | END 2023-08-06 07:00 | PROVIDERS: Admitting Provider Internal Medicine; Emergency Provider Emergency Medicine; PCP Internal Medicine; Visit Provider Internal Medicine Cardiovascular Disease | DX: I35.8 Other nonrheumatic aortic valve disorders (principal); I50.9 Heart failure, unspecified | CPT/HCPCS: 93306 ==

== ENCOUNTER → 2023-08-05 15:07 | Outpatient (BNV) | payer OTHER, SELFPAY | PROVIDERS: Admitting Provider Internal Medicine; Emergency Provider Emergency Medicine; PCP Internal Medicine; Visit Provider Internal Medicine Cardiovascular Disease | DX: I50.9 Heart failure, unspecified (principal); I16.0 Hypertensive urgency | CPT/HCPCS: 99222; 99233 ==

== ENCOUNTER → 2023-08-05 15:07 | Outpatient (BNV) | payer OTHER, SELFPAY | PROVIDERS: Admitting Provider Internal Medicine; Emergency Provider Emergency Medicine; PCP Internal Medicine; Visit Provider Internal Medicine | DX: I50.9 Heart failure, unspecified (principal); I16.1 Hypertensive emergency | CPT/HCPCS: 99223; 99232; 99238 ==

== ENCOUNTER 2023-08-23 14:42 | Outpatient (AMB) | payer OTHER, SELFPAY ==
--- NOTE | 2023-08-23 14:45 | MHC.OFFVIS ---
Intake Vital Signs 08/23/23 14:47 Height 5 ft 8 in Weight 220 lb 14.451 oz BMI 33.6 BP 132/78 Blood Pressure Location Lt brachial Position Sitting Pulse 72 Intake Visit Reasons: [facility]/2-/-/Leg edema (NS) Intake Note: PT has OV for lef edema PT feels restless and numbing on left side Allergies No Known Allergies Allergy (Verified 08/05/23 11:56) Medication List - Last Reconciled 08/23/23 by Altagracia Ward NP acetaminophen 650 mg PO Q4H PRN atorvastatin 80 mg PO BEDTIME carvedilol 25 mg See Protocol PO BID diclofenac sodium 1% 1 g topical TID PRN furosemide (Lasix) 20 mg PO DAILY glipizide ER 10 mg PO DAILY hydralazine 20 mg See Protocol PO TID ipratropium-albuterol 0.5 mg-3 mg(2.5 mg base)/3 mL 3 mL inhalation QID PRN lisinopril 40 mg PO DAILY loratadine 10 mg PO DAILY metformin 1,000 mg PO BIDWM nifedipine ER 60 mg See Protocol PO DAILY sertraline 50 mg PO BEDTIME spironolactone 25 mg See Protocol PO DAILY HPI HPI Comments History of Present Illness Details 58-year-old male presents today for a follow-up after being in the hospital. He was seen by Dr. Willett in the hospital for CHF exacerbation and hypertensive urgency. Patient reports he feels very tired since discharge. He also reports has numbness in his arm since he fell in [place] which [place] mention to his PCP. He states he has been sleeping more. He has reduced salt and carbs from his diet. He reports compliance with his medications. He has not completed testing yet. He denies symptoms other then fatigue and dizziness. [facility] Medical History (Updated 08/23/23 @ 15:23 by Altagracia Ward NP) Heart failure Hypercholesterolemia Hypertension Diabetes Social History Household Members: Family Housing: House Do you presently have visiting nurse or other home services: No Alcohol intake: current Alcohol type: beer Patient Tobacco Use Status: Never used Tobacco service: No Review of Systems Const Denies weakness ENT Denies dizziness Card Details: Restless Denies chest pain, Denies chest pain with activity, Denies syncope, Denies rapid heart rate, Denies pedal edema, Denies edema, Denies leg edema, Denies lightheadedness, Denies palpitations, Denies dyspnea, Denies dyspnea on exertion and Denies orthopnea Resp Denies cough, Denies dyspnea and Denies dyspnea on exertion GI Denies hematochezia and Denies change in stool character Musc Denies abnormal gait, Denies muscle cramps, Denies muscle weakness, Denies numbness, Denies radiating pain into limb and Denies tingling Neuro Denies abnormal gait, Denies dizziness, Denies syncope, Denies numbness, Denies tingling and Denies weakness Endo Denies palpitations Physical Exam Vital Signs: Last Vital Signs Pulse 72 08/23/23 14:47 BP 132/78 08/23/23 14:47 BMI result Body Mass Index 33.6 Const General: healthy appearing and no acute distress Orientation/consciousness: patient oriented x3 HEENT Head: Yes normal to inspection Eyes General: appearance normal, both eyes and all related structures Neck Neck: Yes normal visual inspection Chest Chest palpation & inspection: normal inspection of the chest Resp Effort & Inspection: normal respiratory effort Auscultation: clear to auscultation bilaterally Cardio Jugular venous distension: no JVD Palpation: normal PMI Rate: regular rate Rhythm: regular rhythm Heart sounds: S1 normal heart sound present, S2 normal heart sound present, no click, no gallops, no murmurs and no rubs GI Inspection: Yes normal to inspection Palpation (GI): Soft to palpation Skin General skin exam: no rashes or lesions noted Neuro General: patient oriented x3 Extrem General: Yes normal to inspection Psych Appearance: grossly normal Assessment & Plan Assessment & Plan (1) Hypertension: Code(s): I10 - Essential (primary) hypertension (2) Heart failure: Code(s): I50.9 - Heart failure, unspecified Plan Blood pressure within goal today. May be over-corrected and causing fatigue and dizziness. Will decrease hydralazine from 20mg to 10mg TID. Continue with salt avoidance. Complete testing to evaluate for ischemia and sleep apnea possibly causing HTN. Does not appear to be fluid over-laoded today. Compliance of medication discussed. Medications: Changed From hydralazine 20 mg See Protocol PO TID 90 tabs 2RF To hydralazine 10 mg See Protocol PO TID 90 tabs 2RF Coding Level of Care Code Est Pt Level 3 (30670) Diagnoses Hypertension I10 Heart failure I50.9
[2023-08-23 14:47] VITALS: BP 132/78; PULSE 72; BMI 33.6
== END 2023-08-23 15:17 | disposition home or self-care (01) ==
PROVIDERS: PCP Internal Medicine; Visit Provider Nurse Practitioner
DX: I10 Essential (primary) hypertension (principal); I50.9 Heart failure, unspecified
CPT/HCPCS: 99213

== ENCOUNTER → 2023-08-23 14:42 | Outpatient (BNVA) | payer OTHER, SELFPAY | PROVIDERS: PCP Internal Medicine; Visit Provider Nurse Practitioner ==

== ENCOUNTER 2023-09-06 12:02 | Emergency (ER) | payer OTHER, SELFPAY ==
--- NOTE | ~2023-09-06 | CT_ITS ---
EXAMINATION: CT HEAD WITHOUT CONTRAST CLINICAL INFORMATION: Left arm and leg weakness for 5 days COMPARISON: None available. TECHNIQUE: Contiguous axial imaging was performed from the skull base to vertex without intravenous administration of contrast. This CT examination was performed using dose optimization techniques as appropriate, variously including the following: *Automated exposure control *Adjustment of mA and/or kV according to patient size (this includes techniques or standardized protocols for targeted exams where dose is matched to indication/reason for exam; i.e. extremities or head) *Use of iterative reconstruction technique DLP: 754 mGy-cm FINDINGS: There is no acute intra-axial, extra-axial bleed, masses or midline shift. There is no acute infarction evolution. There is no edema. The hodge to white matter differentiation is maintain normal. The lateral ventricles are symmetrical in size and configuration without enlargement. Bone windows reveal no calvarial abnormality. There is no scalp soft tissue abnormality. There is mild mucoperiosteal thickening bilateral maxillary sinuses. Rest the paranasal sinuses and mastoid air cells are well-aerated. CT/CT head/brain wo IV con IMPRESSION: No acute intracranial process seen. Bilateral chronic maxillary sinus inflammatory changes.
[2023-09-06 12:05] VITALS: BP 150/96; PULSE 75; RESP 16; TEMP 37; O2SAT 96; BMI 33.4
--- NOTE | 2023-09-06 12:07 | ED.WEAKNESS ---
HPI - Weakness General Chief complaint: Neuro Symptoms/Deficit Stated complaint: ? Stroke Time Seen by Provider: 09/06/23 12:29 Source: patient and family Mode of arrival: ambulatory Limitations: no limitations History of Present Illness HPI Narrative: Patient comes to the emergency room with multiple complaints. Patient states that since March of 2023 his left arm has been hurting. Patient states that for a few days he has been having high blood pressure, weakness, generalized malaise, nausea. Patient denies chest pain or shortness of breath, no abdominal pain, no syncopal episodes. Also, patient's concerned that patient's lower extremities have been a bit more swollen than usual. Related Data Home Medications Medication Instructions Recorded Confirmed acetaminophen 325 mg tablet 650 mg PO Q4H PRN Pain (Scale 08/05/23 08/05/23 Score 1-3) atorvastatin 80 mg tablet 80 mg PO BEDTIME 08/05/23 08/05/23 diclofenac sodium 1 % topical gel 1 g topical TID PRN pain 08/05/23 08/05/23 glipizide 10 mg tablet, extended 10 mg PO DAILY 08/05/23 08/05/23 release 24 hr ipratropium 0.5 mg-albuterol 3 mg 3 ml inhalation QID PRN Shortness 08/05/23 08/05/23 (2.5 mg base)/3 mL nebulization Of Breath Or Wheezing soln lisinopril 40 mg tablet 40 mg PO DAILY 08/05/23 08/05/23 loratadine 10 mg tablet 10 mg PO DAILY 08/05/23 08/05/23 metformin 1,000 mg tablet 1,000 mg PO BIDWM 08/05/23 08/05/23 sertraline 50 mg tablet 50 mg PO BEDTIME 08/05/23 08/05/23 Previous Rx's Medication Instructions Recorded carvedilol 25 mg tablet 25 mg PO BID #60 tabs 08/07/23 furosemide 20 mg tablet (Lasix) 20 mg PO DAILY #30 tabs 08/07/23 nifedipine 30 mg tablet,extended 60 mg PO DAILY #30 tabs 08/07/23 release 24 hr spironolactone 25 mg tablet 25 mg PO DAILY #30 tabs 08/07/23 hydralazine 10 mg tablet 20 mg PO TID #90 tabs 08/30/23 Allergies Allergy/AdvReac Type Severity Reaction Status Date / Time No Known Allergies Allergy Verified 08/05/23 11:56 Review of Systems Review of Systems: Constitutional : No Weight loss, No Fever, No Chills, No Night Sweats, No Fatigue, No Malaise ENT/Mouth : No Hearing loss, No Ear Pain, No Nasal Congestion, No Sinus Pain, No Hoarseness, No sore throat, No Rhinorrhea, No Swallowing Difficulty Eyes: No Eye Pain, No Swelling, No Redness, No Foreign Body, No Discharge, No Vision Changes Cardiovascular : No Chest Pain, No SOB, No Dyspnea on Exertion, No Orthopnea, No Edema, No Palpitations Respiratory : No Cough, No Sputum, No Wheezing, No Smoke Exposure, No Dyspnea Gastrointestinal : Patient complaining of nausea and vomiting, No Diarrhea, No Constipation, No abdominal Pain, No Hematochezia, No Melena Genitourinary : no irregular bleeding, No Dysuria, No Urinary Frequency, No Hematuria, No Urinary Incontinence, No Urgency, No Flank Pain, No Urinary Flow Changes, No Hesitancy Musculoskeletal : No joint pain, No Myalgias, No Joint Swelling Skin : No Skin Lesions, No rash Neuro : Complaining of weakness, paresthesia and discomfort on the left arm that started 5 months ago Psych : No Anxiety/Panic, No Depression, No SI/HI/AH/VH, No Social Issues, Heme/Lymph: No Bruising, No Bleeding,No Lymphadenopathy Endocrine : No Polyuria, No Polydipsia, No Temperature Intolerance [facility] Past Medical History Medical History Heart failure Hypercholesterolemia Hypertension Diabetes Social History Social History Household Members: Family Housing: House Do you presently have visiting nurse or other home services: No Alcohol intake: current Alcohol type: beer Patient Tobacco Use Status: Never used Tobacco Smoked in Last 30 Days: No Use of substances other than those prescribed or required for medical reasons: No Advance Directives: Yes Advance Directives Information Provided: Yes Advance Directives on File: No service: No Physical Exam Vital Signs: Vital Signs: Last Vital Signs Temp 98.4 F 09/06/23 15:50 Pulse 61 09/06/23 15:50 Resp 18 09/06/23 15:50 BP 187/94 H 09/06/23 15:50 Pulse Ox 96 09/06/23 15:50 O2 Del Method Room Air 09/06/23 15:50 BMI result Body Mass Index 33.4 Const: Other: Appearance: Alert. Oriented X3. No acute distress. Eyes: Pupils equal, round and reactive to light. ENT: Pharynx normal. Neck: Normal inspection. Neck supple. No lymph nodes noted. No crepitus CVS: Normal heart rate and rhythm. Pulses normal. Normal S1 and S2 Respiratory: No respiratory distress. Breath sounds normal. No Wheezing. No rales Abdomen: Soft and nontender. No rigidity. No distention. Skin: Skin warm and dry. Normal skin color. Normal skin turgor. Extremities: No lower extremity edema. No Lacerations. No Rash Neuro: Oriented X 3. No motor deficit. No sensory deficit. Moving all extremities. No slurred speech. CN 2 through 12 grossly intact Psych: calm, cooperative, normal affect NIH Stroke Scale Internal: Initial- Upon Arrival Level of Consciousness: Alert Level of Consciousness Questions: Answers both questions correctly Level of Consciousness Commands: Performs both tasks correctly Best Gaze: Normal Visual: No visual loss Facial Palsy: Normal Motor Arm (Right): No drift Motor Arm (Left): No drift Motor Leg (Right): No drift Motor Leg (Left): No drift Limb Ataxia: Absent Sensory: Normal Best Language: No aphasia Dysarthia: Normal Extinction and Inattention: No abnormality Score: 0 Course Course Course Narrative: This is a rapid medical exam: Additional HPI, ROS, PE not included below will be deferred to primary provider. Left sided weakness since Saturday with dizziness. Seen by cardiology on 09/02 and symptoms began the follow day. reports concern that there is color change to the left arm and leg Medications Administered Discontinued Medications Generic Name Dose Route Start Last Admin Trade Name Freq PRN Reason Stop Dose Admin Sodium Chloride 1,000 mls @ 500 mls/hr 09/06/23 14:29 09/06/23 16:14 Ns IVCONT 09/06/23 16:28 Infused .Q2H ONE Infusion Medical Decision Making Medical Decision Making [facility] Narrative: -neurologic symptoms of left upper extremity discomfort, pain, numbness is chronic. -all of patient's labs and imaging pending -my interpretation of labs: Hematology at baseline, chemistry shows a creatinine of 1.59 which is a bit bumped from baseline. Patient receiving IV fluids slowly due to history of CHF. Troponin negative, BNP 132 at baseline. Negative for COVID and flu -my interpretation of head CT: No intracranial bleed, no signs of acute infarction or evolution. Patient complaining of chronic symptoms since 2022. Complaining of acute generalized weakness and generalized malaise. Patient likely has a viral syndrome. -patient ambulated to the bathroom unassisted with steady gait and without any lower extremity weakness or dragging Patient was ambulated Differential Diagnosis Differential Diagnoses: The differential diagnosis associated with the presentation includes (Viral syndrome, generalized weakness) Admission/Observation Consideration of admission/observation: Escalation of care including admission/observation considered (Given patient's symptoms and history, patient was considered) Lab Data MDM Lab Attestation statement: I reviewed the patient's lab results. 09/06/23 12:34 09/06/23 17:04 Labs: Lab Results 09/06/23 09/06/23 09/06/23 Range/Units 12:34 15:15 16:53 WBC 6.5 (4.8-10.8) X10*3/uL RBC 3.92 L (4.60-5.80) X10*6/uL Hgb 11.2 L (14.0-18.0) g/dl Hct 33.3 L (42.0-52.0) % MCV 84.9 (80.0-98.0) fL MCH 28.6 (27.0-33.0) pg MCHC 33.6 (31.0-36.0) g/dl RDW 13.4 (11.0-16.0) % Plt Count 250 (160-400) X10*3/uL MPV 10.1 (9.4-12.4) fL Immature Gran % (Auto) 0.5 H (0.0-0.4) % Neut % (Auto) 64.4 (45-73) % Lymph % (Auto) 24.6 (20-40) % [place] % (Auto) 7.3 (2-11) % Eos % (Auto) 2.9 (0-4) % Baso % (Auto) 0.3 (0-2) % Lymph # (Auto) 1.6 (1.2-4.9) X10*3/uL [place] # (Auto) 0.5 (0.1-1.2) X10*3/uL Eos # (Auto) 0.2 (0.0-0.4) X10*3/uL Baso # (Auto) 0.0 (0.0-0.2) X10*3/uL Abs Immat Gran (auto) 0.03 (0.00-0.03) X10*3/uL Absolute Neuts (auto) 4.2 (2.0-8.3) x10*3/uL Absolute Nucleated RBC 0.000 (0.0-0.012) X10*3/uL Nucleated RBC % (auto) 0.0 (0.0-0.2) /100WBC PT 11.6 (11.1-13.3) SEC INR 1.0 (0.9-1.1) Sodium 140 (135-145) mmol/L Potassium 4.0 (3.3-5.1) mmol/L Chloride 111 H (96-108) mmol/L Carbon Dioxide 21 L (22-29) mmol/L Anion Gap 12 (12-20) BUN 24 H (9-16) mg/dL Creatinine 1.59 H (0.5-1.4) mg/dL Estim Creat Clear Calc 56.5 Estimated GFR 45 POC Glucose 60 (60-115) mg/dL Random Glucose 112 (60-115) mg/dL Calcium 8.5 D (8.4-10.2) mg/dL Total Bilirubin 0.3 (0.0-1.0) mg/dL AST 14 (5-37) U/L ALT 15 (0-40) U/L Alkaline Phosphatase 138 H (39-117) U/L Troponin I High Sens < 2.7 D (<3.5-35.0) ng/L B-Natriuretic Peptide 132 H (<100) pg/mL Total Protein 6.0 L (6.5-8.0) g/dL Albumin 2.4 L (3.5-5.0) g/dL Ethyl Alcohol < 10 mg/dL Influenza Type A (PCR) NEGATIVE (Negative) Influenza Type B (PCR) NEGATIVE (Negative) RSV RNA Qual (PCR) NEGATIVE (Negative) SARS-CoV-2 RNA (RT-PCR) NEGATIVE (Negative) 09/06/23 Range/Units 17:04 WBC (4.8-10.8) X10*3/uL RBC (4.60-5.80) X10*6/uL Hgb (14.0-18.0) g/dl Hct (42.0-52.0) % MCV (80.0-98.0) fL MCH (27.0-33.0) pg MCHC (31.0-36.0) g/dl RDW (11.0-16.0) % Plt Count (160-400) X10*3/uL MPV (9.4-12.4) fL Immature Gran % (Auto) (0.0-0.4) % Neut % (Auto) (45-73) % Lymph % (Auto) (20-40) % [place] % (Auto) (2-11) % Eos % (Auto) (0-4) % Baso % (Auto) (0-2) % Lymph # (Auto) (1.2-4.9) X10*3/uL [place] # (Auto) (0.1-1.2) X10*3/uL Eos # (Auto) (0.0-0.4) X10*3/uL Baso # (Auto) (0.0-0.2) X10*3/uL Abs Immat Gran (auto) (0.00-0.03) X10*3/uL Absolute Neuts (auto) (2.0-8.3) x10*3/uL Absolute Nucleated RBC (0.0-0.012) X10*3/uL Nucleated RBC % (auto) (0.0-0.2) /100WBC PT (11.1-13.3) SEC INR (0.9-1.1) Sodium 141 (135-145) mmol/L Potassium 4.1 (3.3-5.1) mmol/L Chloride 113 H (96-108) mmol/L Carbon Dioxide 21 L (22-29) mmol/L Anion Gap 11 L (12-20) BUN 23 H (9-16) mg/dL Creatinine 1.47 H (0.5-1.4) mg/dL Estim Creat Clear Calc 61.1 Estimated GFR 49 POC Glucose (60-115) mg/dL Random Glucose 64 (60-115) mg/dL Calcium 8.5 (8.4-10.2) mg/dL Total Bilirubin (0.0-1.0) mg/dL AST (5-37) U/L ALT (0-40) U/L Alkaline Phosphatase (39-117) U/L Troponin I High Sens (<3.5-35.0) ng/L B-Natriuretic Peptide (<100) pg/mL Total Protein (6.5-8.0) g/dL Albumin (3.5-5.0) g/dL Ethyl Alcohol mg/dL Influenza Type A (PCR) (Negative) Influenza Type B (PCR) (Negative) RSV RNA Qual (PCR) (Negative) SARS-CoV-2 RNA (RT-PCR) (Negative) Independent Interpretation I performed an independent interpretation of an: CT Scan Radiology Impression Discussion of test interpretation with radiology: I have reviewed the radiologist's reading. Radiologist Impression: FINDINGS: There is no acute intra-axial, extra-axial bleed, masses or midline shift. There is no acute infarction evolution. There is no edema. The hodge to white matter differentiation is maintain normal. The lateral ventricles are symmetrical in size and configuration without enlargement. Bone windows reveal no calvarial abnormality. There is no scalp soft tissue abnormality. There is mild mucoperiosteal thickening bilateral maxillary sinuses. Rest the paranasal sinuses and mastoid air cells are well-aerated. Critical Care Time Critical Care Time Critical Care Time: Yes Total Critical Care Time: 45 Attestation: I have personally provided critical care time. Time includes review of lab data, radiology results, discussion with consultants, and monitoring for potential decompensation. Intervention performed as documented. Discharge Plan Discharge Clinical Impression: Acute viral syndrome Patient Disposition: Home, Self-Care Instructions: Viral Syndrome (ED) Additional Instructions: Please follow-up with your primary care physician tomorrow. If you have any worsening or new symptoms, please return to the emergency room or call 911 Prescriptions: No Action hydralazine 10 mg tablet 20 mg PO TID Qty: 90 3RF Protocol: Hold for SBP< HOLD for SBP < : 90 atorvastatin 80 mg tablet 80 mg PO BEDTIME acetaminophen 325 mg Tablet 650 mg PO Q4H PRN (Reason: Pain (Scale Score 1-3)) ipratropium-albuterol 0.5 mg-3 mg(2.5 mg base)/3 mL solution for nebulization 3 ml inhalation QID PRN (Reason: Shortness Of Breath Or Wheezing) glipizide 10 mg tablet extended release 24hr 10 mg PO DAILY metformin 1,000 mg tablet 1,000 mg PO BIDWM lisinopril 40 mg tablet 40 mg PO DAILY sertraline 50 mg tablet 50 mg PO BEDTIME loratadine 10 mg tablet 10 mg PO DAILY diclofenac sodium 1 % gel 1 g topical TID PRN (Reason: pain) nifedipine 30 mg Tablet Extended Release 24hr 60 mg PO DAILY Qty: 30 3RF Protocol: Hold for SBP< HOLD for SBP < : 90 carvedilol 25 mg Tablet 25 mg PO BID Qty: 60 2RF Protocol: Hold for SBP/HR < HOLD for SBP < : 90 HOLD for HR < : 60 spironolactone 25 mg Tablet 25 mg PO DAILY Qty: 30 0RF Protocol: Hold for SBP< HOLD for SBP < : 90 furosemide [Lasix] 20 mg tablet 20 mg PO DAILY Qty: 30 3RF
--- NOTE | 2023-09-06 12:11 | ECG_ITS ---
Test Reason : weakness Blood Pressure : / mmHG Vent. Rate : 067 BPM Atrial Rate : 067 BPM P-R Int : 168 ms QRS Dur : 094 ms QT Int : 422 ms P-R-T Axes : 024 015 037 degrees QTc Int : 445 ms Normal sinus rhythm Normal ECG When compared with ECG of 05-AUG-2023 12:09, No significant change was found Referred By: Nydia Evans Electronically Signed By:JAMES LUJAN
[2023-09-06 12:43] LABS: MANUAL DIFF FLAG NO
[2023-09-06 12:44] LABS: Basophils Percent Auto 0.3 % (0-2); Eosinophils Absolute Auto 0.2 X10*3/uL (0.0-0.4); Eosinophils Percent Auto 2.9 % (0-4); Hematocrit 33.3 % (42.0-52.0); Hemoglobin 11.2 g/dl (14.0-18.0); Imm Gran Abs Auto 0.03 X10*3/uL (0.00-0.03); Imm Gran Pct Auto 0.5 % (0.0-0.4); Lymphocytes Absolute Auto 1.6 X10*3/uL (1.2-4.9); Lymphocytes Percent Auto 24.6 % (20-40); Mean Corpuscular HGB Conc 33.6 g/dl (31.0-36.0); Mean Corpuscular Hemoglobin 28.6 pg (27.0-33.0); Mean Corpuscular Volume 84.9 fL (80.0-98.0); Mean Platelet Volume 10.1 fL (9.4-12.4); Monocytes Absolute Auto 0.5 X10*3/uL (0.1-1.2); Monocytes Percent Auto 7.3 % (2-11); Neutrophils Absolute Auto 4.2 x10*3/uL (2.0-8.3); Neutrophils Percent Auto 64.4 % (45-73); Platelet Count 250 X10*3/uL (160-400); Red Blood Count 3.92 X10*6/uL (4.60-5.80); Red Cell Distribution Width 13.4 % (11.0-16.0); White Blood Count 6.5 X10*3/uL (4.8-10.8)
[2023-09-06 12:55] LABS: Prothrombin Time 11.6 SEC (11.1-13.3)
[2023-09-06 12:57] LABS: Alanine Aminotransferase 15 U/L (0-40); Albumin Level 2.4 g/dL (3.5-5.0); Alkaline Phosphatase 138 U/L (39-117); Anion Gap 12 (12-20); Aspartate Amino Transferase 14 U/L (5-37); Bilirubin Total 0.3 mg/dL (0.0-1.0); Blood Urea Nitrogen 24 mg/dL (9-16); Calcium 8.5 mg/dL (8.4-10.2); Carbon Dioxide 21 mmol/L (22-29); Chloride 111 mmol/L (96-108); Creatinine Clr Calc Pharmacy 56.5; Estimated Glomerular Filt Rate 45; Glucose Random 112 mg/dL (60-115); Sodium 140 mmol/L (135-145)
[2023-09-06 13:08] LABS: Troponin-I High Sensitivity < 2.7 ng/L (<3.5-35.0)
--- NOTE | 2023-09-06 13:26 | PC.NURSE ---
Patient informed of need of urine sample, IV placed, resting quietly on stretcher at this time waiting for CT scan
[2023-09-06 13:40] LABS: B Type Natriuretic Peptide 132 pg/mL (<100)
[2023-09-06] MEDS: 0.9 % Sodium Chloride 1,000 ML 500 ML IVCONT (14:41)
[2023-09-06 15:38] LABS: Ethanol < 10 mg/dL
[2023-09-06 15:50] VITALS: BP 187/94; PULSE 61; RESP 18; TEMP 36.9; O2SAT 96
[2023-09-06 16:08] LABS: Influenza A PCR NEGATIVE (Negative); Influenza B PCR NEGATIVE (Negative); Resp Syncy Virus RNA Qual PCR NEGATIVE (Negative); SARS COV2 PCR INHOUSE NEGATIVE (Negative)
--- NOTE | 2023-09-06 16:30 | PC.NURSE ---
PT AMBULATING TO RESTROOM INDEPENDENTLY, STEADILY WITH NO ISSUE.
[2023-09-06 16:59] LABS: Glucose, Whole Blood 60 mg/dL (60-115)
[2023-09-06 17:21] LABS: Anion Gap 11 (12-20); Blood Urea Nitrogen 23 mg/dL (9-16); Calcium 8.5 mg/dL (8.4-10.2); Carbon Dioxide 21 mmol/L (22-29); Chloride 113 mmol/L (96-108); Creatinine Clr Calc Pharmacy 61.1; Estimated Glomerular Filt Rate 49; Glucose Random 64 mg/dL (60-115); Potassium 4.1 mmol/L (3.3-5.1); Sodium 141 mmol/L (135-145)
[2023-09-06] MEDS: carvediloL 25 MG TABLET PO (17:36)
[2023-09-06 17:53] VITALS: BP 169/92; PULSE 73; RESP 16; TEMP 36.4; O2SAT 97
== END 2023-09-06 17:54 | disposition home or self-care (01) ==
PROVIDERS: Nurse Practitioner Family; Emergency Provider Emergency Medicine; PCP Internal Medicine
DX: B34.9 Viral infection, unspecified (principal); M79.602 Pain in left arm; I11.0 Hypertensive heart disease with heart failure; I50.9 Heart failure, unspecified; E11.9 Type 2 diabetes mellitus without complications; Z11.52 Encounter for screening for COVID-19; Z20.828 Contact with and (suspected) exposure to other viral communicable diseases
CPT/HCPCS: 0241U; 36415; 70450; 80048; 80053; 80307; 82947; 83880; 84484; 85025; 85610; 93005; 96360; 96361; 99284; 99285

== ENCOUNTER → 2023-09-06 12:11 | Outpatient (BNV) | payer OTHER, SELFPAY | PROVIDERS: Emergency Provider Emergency Medicine; PCP Internal Medicine; Visit Provider Internal Medicine | DX: R53.1 Weakness (principal) | CPT/HCPCS: 93010 ==

== ENCOUNTER 2023-09-25 13:43 | Emergency (ER) | payer OTHER, SELFPAY ==
--- NOTE | ~2023-09-25 | US_ITS ---
EXAMINATION: US VENOUS ULTRASOUND WITH DOPPLER LOWER EXTREMITY, LEFT CLINICAL INFORMATION: Left lower extremity swelling. COMPARISON: None available. TECHNIQUE: Ultrasound of the deep veins is performed from the hip to the calf with compression sonography and color and pulse Doppler assessment. Spectral analysis with color-flow imaging is performed. FINDINGS: There is normal venous compression and respiratory variation and augmented flow. The visualized common femoral vein, superficial femoral vein, profunda femoral vein, popliteal vein, and the trifurcation region shows no evidence of deep venous thrombosis. If the patient's symptoms persist, followup ultrasound in 5 days 7 days might be of value to exclude proximal propagation from a non-visualized calf vein. US/US venous duplex LE LT IMPRESSION: No DVT demonstrated in the left lower extremity.
[2023-09-25 14:46] VITALS: BP 156/90; PULSE 85; RESP 16; TEMP 37; O2SAT 100; BMI 33.4
--- NOTE | 2023-09-25 14:52 | ED.GENADULT ---
HPI - General Adult General Chief complaint: Extremity Injury, Lower Stated complaint: asthma, cough, slurring words Related Data Home Medications ?Medication ?Instructions ?Recorded ?Confirmed acetaminophen 325 mg tablet 650 mg PO Q4H PRN Pain (Scale 08/05/23 08/05/23 Score 1-3) atorvastatin 80 mg tablet 80 mg PO BEDTIME 08/05/23 08/05/23 diclofenac sodium 1 % topical gel 1 g topical TID PRN pain 08/05/23 08/05/23 glipizide 10 mg tablet, extended 10 mg PO DAILY 08/05/23 08/05/23 release 24 hr ipratropium 0.5 mg-albuterol 3 mg 3 ml inhalation QID PRN Shortness 08/05/23 08/05/23 (2.5 mg base)/3 mL nebulization Of Breath Or Wheezing soln lisinopril 40 mg tablet 40 mg PO DAILY 08/05/23 08/05/23 loratadine 10 mg tablet 10 mg PO DAILY 08/05/23 08/05/23 metformin 1,000 mg tablet 1,000 mg PO BIDWM 08/05/23 08/05/23 sertraline 50 mg tablet 50 mg PO BEDTIME 08/05/23 08/05/23 Previous Rx's ?Medication ?Instructions ?Recorded carvedilol 25 mg tablet 25 mg PO BID #60 tabs 08/07/23 furosemide 20 mg tablet (Lasix) 20 mg PO DAILY #30 tabs 08/07/23 nifedipine 30 mg tablet,extended 60 mg PO DAILY #30 tabs 08/07/23 release 24 hr spironolactone 25 mg tablet 25 mg PO DAILY #30 tabs 08/07/23 hydralazine 10 mg tablet 20 mg PO TID #90 tabs 08/30/23 Allergies Allergy/AdvReac Type Severity Reaction Status Date / Time No Known Allergies Allergy Verified 09/25/23 14:51 [facility] Past Medical History Medical History Heart failure Hypercholesterolemia Hypertension Diabetes Social History Social History Household Members: Family Housing: House Do you presently have visiting nurse or other home services: No Alcohol intake: current Alcohol type: beer Patient Tobacco Use Status: Never used Tobacco Advance Directives: No Advance Directives Information Provided: No service: No Physical Exam ED Vital Signs: Vital Signs - 24 hr 09/25/23 14:46 Temperature 98.6 F Pulse Rate 85 Respiratory Rate 16 Blood Pressure 156/90 H Pulse Oximetry 100 Oxygen Delivery Method Room Air BMI result Body Mass Index 33.4 Course Course Course Narrative: RME:?58 yo male hx of CHF here w/ b/l LE swelling x1 days. 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 admits the left foot/lower leg became red and warm yesterday. endorses some sob at baseline. denies chest pain. poor history. does not have a automated cutting machine operator. is not aware if he takes a diuretic. he admits to subjective L arm and L leg weakness however strength is 5/5 throughout. He was also evaluated for this 2 weeks ago with unremarkable CT. Fast negative. Exam nonfocal. 1+ pitting edema to b/l LEs. Lungs are CTA bilaterally labs, venous duplex ordered. Full HPI, ROS and PE to be performed by the primary ED provider. Reevaluation(s) Reevaluation #1: Patient left the ED without completing treatment. Medical Decision Making Lab Data 09/25/23 15:43 09/25/23 15:43 Labs: Lab Results 09/25/23 Range/Units 15:43 WBC 7.5 (4.8-10.8) X10*3/uL RBC 3.71 L (4.60-5.80) X10*6/uL Hgb 10.3 L (14.0-18.0) g/dl Hct 31.4 L (42.0-52.0) % MCV 84.6 (80.0-98.0) fL MCH 27.8 (27.0-33.0) pg MCHC 32.8 (31.0-36.0) g/dl RDW 13.3 (11.0-16.0) % Plt Count 290 (160-400) X10*3/uL MPV 9.4 (9.4-12.4) fL Immature Gran % (Auto) 0.3 (0.0-0.4) % Neut % (Auto) 63.6 (45-73) % Lymph % (Auto) 26.2 (20-40) % [place] % (Auto) 7.6 (2-11) % Eos % (Auto) 1.9 (0-4) % Baso % (Auto) 0.4 (0-2) % Lymph # (Auto) 2.0 (1.2-4.9) X10*3/uL [place] # (Auto) 0.6 (0.1-1.2) X10*3/uL Eos # (Auto) 0.1 (0.0-0.4) X10*3/uL Baso # (Auto) 0.0 (0.0-0.2) X10*3/uL Abs Immat Gran (auto) 0.02 (0.00-0.03) X10*3/uL Absolute Neuts (auto) 4.8 (2.0-8.3) x10*3/uL Absolute Nucleated RBC 0.000 (0.0-0.012) X10*3/uL Nucleated RBC % (auto) 0.0 (0.0-0.2) /100WBC PT 13.4 H (11.1-13.3) SEC INR 1.1 (0.9-1.1) Sodium 139 (135-145) mmol/L Potassium 4.1 (3.3-5.1) mmol/L Chloride 111 H (96-108) mmol/L Carbon Dioxide 19 L (22-29) mmol/L Anion Gap 13 (12-20) BUN 29 H (9-16) mg/dL Creatinine 1.85 H (0.5-1.4) mg/dL Estim Creat Clear Calc 48.6 Estimated GFR 37 Random Glucose 98 (60-115) mg/dL Calcium 8.4 (8.4-10.2) mg/dL Magnesium 2.0 (1.6-2.6) mg/dL Total Bilirubin 0.4 (0.0-1.0) mg/dL AST 13 (5-37) U/L ALT 15 (0-40) U/L Alkaline Phosphatase 131 H (39-117) U/L B-Natriuretic Peptide 240 H (<100) pg/mL Total Protein 6.4 L (6.5-8.0) g/dL Albumin 2.6 L (3.5-5.0) g/dL Discharge Plan Discharge Clinical Impression: Peripheral edema Patient Disposition: Left W/O Completing Treatment Prescriptions: No Action hydralazine 10 mg tablet 20 mg PO TID Qty: 90 3RF Protocol: Hold for SBP< HOLD for SBP < : 90 atorvastatin 80 mg tablet 80 mg PO BEDTIME acetaminophen 325 mg Tablet 650 mg PO Q4H PRN (Reason: Pain (Scale Score 1-3)) ipratropium-albuterol 0.5 mg-3 mg(2.5 mg base)/3 mL solution for nebulization 3 ml inhalation QID PRN (Reason: Shortness Of Breath Or Wheezing) glipizide 10 mg tablet extended release 24hr 10 mg PO DAILY metformin 1,000 mg tablet 1,000 mg PO BIDWM lisinopril 40 mg tablet 40 mg PO DAILY sertraline 50 mg tablet 50 mg PO BEDTIME loratadine 10 mg tablet 10 mg PO DAILY diclofenac sodium 1 % gel 1 g topical TID PRN (Reason: pain) nifedipine 30 mg Tablet Extended Release 24hr 60 mg PO DAILY Qty: 30 3RF Protocol: Hold for SBP< HOLD for SBP < : 90 carvedilol 25 mg Tablet 25 mg PO BID Qty: 60 2RF Protocol: Hold for SBP/HR < HOLD for SBP < : 90 HOLD for HR < : 60 spironolactone 25 mg Tablet 25 mg PO DAILY Qty: 30 0RF Protocol: Hold for SBP< HOLD for SBP < : 90 furosemide [Lasix] 20 mg tablet 20 mg PO DAILY Qty: 30 3RF Discharge Date/Time: 09/25/23 18:35
[2023-09-25 15:49] LABS: MANUAL DIFF FLAG NO
[2023-09-25 15:50] LABS: Basophils Percent Auto 0.4 % (0-2); Eosinophils Absolute Auto 0.1 X10*3/uL (0.0-0.4); Eosinophils Percent Auto 1.9 % (0-4); Hematocrit 31.4 % (42.0-52.0); Hemoglobin 10.3 g/dl (14.0-18.0); Imm Gran Abs Auto 0.02 X10*3/uL (0.00-0.03); Imm Gran Pct Auto 0.3 % (0.0-0.4); Lymphocytes Percent Auto 26.2 % (20-40); Mean Corpuscular HGB Conc 32.8 g/dl (31.0-36.0); Mean Corpuscular Hemoglobin 27.8 pg (27.0-33.0); Mean Corpuscular Volume 84.6 fL (80.0-98.0); Mean Platelet Volume 9.4 fL (9.4-12.4); Monocytes Absolute Auto 0.6 X10*3/uL (0.1-1.2); Monocytes Percent Auto 7.6 % (2-11); Neutrophils Absolute Auto 4.8 x10*3/uL (2.0-8.3); Neutrophils Percent Auto 63.6 % (45-73); Platelet Count 290 X10*3/uL (160-400); Red Blood Count 3.71 X10*6/uL (4.60-5.80); Red Cell Distribution Width 13.3 % (11.0-16.0); White Blood Count 7.5 X10*3/uL (4.8-10.8)
[2023-09-25 16:01] LABS: INTERNATIONAL NORM RATIO 1.1 (0.9-1.1); Prothrombin Time 13.4 SEC (11.1-13.3)
[2023-09-25 16:09] LABS: B Type Natriuretic Peptide 240 pg/mL (<100)
[2023-09-25 16:47] LABS: Alanine Aminotransferase 15 U/L (0-40); Albumin Level 2.6 g/dL (3.5-5.0); Alkaline Phosphatase 131 U/L (39-117); Anion Gap 13 (12-20); Aspartate Amino Transferase 13 U/L (5-37); Bilirubin Total 0.4 mg/dL (0.0-1.0); Blood Urea Nitrogen 29 mg/dL (9-16); Calcium 8.4 mg/dL (8.4-10.2); Carbon Dioxide 19 mmol/L (22-29); Chloride 111 mmol/L (96-108); Creatinine Clr Calc Pharmacy 48.6; Estimated Glomerular Filt Rate 37; Glucose Random 98 mg/dL (60-115); Potassium 4.1 mmol/L (3.3-5.1); Sodium 139 mmol/L (135-145); Total Protein 6.4 g/dL (6.5-8.0)
== END 2023-09-25 18:35 | disposition left against medical advice (07) ==
PROVIDERS: Physician Assistant Medical; Emergency Provider Emergency Medicine; PCP Internal Medicine
DX: R60.0 Localized edema (principal); R06.02 Shortness of breath; R47.81 Slurred speech; R05.9 Cough, unspecified; Z79.899 Other long term (current) drug therapy
CPT/HCPCS: 36415; 80053; 83735; 83880; 85025; 85610; 93971; 99281; 99284

== ENCOUNTER → 2023-10-23 07:51 | Outpatient (REF) | payer OTHER, SELFPAY | LOC: HO.CARD 07:51 | PROVIDERS: Visit Provider Internal Medicine Cardiovascular Disease | DX: Z13.89 Encounter for screening for other disorder (principal) ==

== ENCOUNTER 2023-10-23 08:45 | Emergency (ER) | payer OTHER, SELFPAY ==
[2023-10-23 09:08] VITALS: BP 129/71; PULSE 59; RESP 14; TEMP 36.4; O2SAT 97; BMI 32.7
[2023-10-23 09:12] VITALS: BP 125/72; PULSE 58; RESP 16; TEMP 36.4; O2SAT 98; O2SAT 99
--- NOTE | 2023-10-23 09:16 | PC.NURSE ---
Pt brought to ED from cardiac stress testing center. Reported that pt was having dizziness, vision issues and memory problems. BP was hypertensive and then hypotensive, near-syncopal event. Pt reports symptoms of dizziness, general weakness and blurred vision since Jul, ongoing. Pt reports he is feeling better now, was not feeling well at the stress test. Pt is alert and oriented, breathing even and unlabored, skin slightly pale. VSS. Pt is on bedside gambling monitor, sinus bradycardia. Pt denies CP, SOB, N/V/D, ABD pain.
--- NOTE | 2023-10-23 09:17 | ED_ITS ---
HPI - Syncope General Chief Complaint: Syncope Stated Complaint: Pre syncope Time Seen by Provider: 10/23/23 09:14 Source: patient and family Mode of arrival: ambulatory Limitations: no limitations History of Present Illness HPI narrative: 58 yo male with PMH significant for HTN, CHF, DM, CKD, RACHEL not on CPAP, depression, asthma, degeneration of cervical disc, former alcohol abuse (reportedly quit in July 2023) and newly diagnosed RA on prednisone, who presents to the ED for evaluation of acute dizziness. Patient explains he was at cardiac stress test [place] [facility] [place] when he became dizzy and began experiencing blurred vision. He experienced these symptoms before the stress test began, after being hooked up. He cannot recall losing consciousness, but remembers feeling like he was going to pass out and seeing darkness. The symptoms have since subsided. He denies any exacerbating or alleviating factors. He denies any weakness, headaches, chest pain, palpitations, SOB, abdominal pain, N/V/D, changes in urination, or paresthesias at this time. Denies blood in stool, but endorses frequent nose bleeds, last episode being last week. The patient's ex- was present at bedside and provided collateral history. He has reportedly been experiencing chronic dizziness, blurred vision, and left sided arm and leg numbness and tingling for a few months now. She states he is non-compliant with his blood pressure and diabetes medications. She says he will skip taking his medication because it makes him feel dizzy, however he is dizzy when he misses the medication as well. She notes a history of right-sided facial dropping in March 2023, however he did not seek medical treatment, as he was reportedly intoxicated. He reportedly has experienced multiple falls late last year, she believes around March 2023. He has not worked since hospitalization in July 2023 due to chronic dizziness. She feels she sees intermittent yellowing of his skin and redness and swelling of left arm. MD complaint: felt faint and almost passed out Onset (ago): hour(s) Prodromal symptoms: vision changes and lightheaded Witnessed: Yes - by Other ([facility] [place] at cardiac stress test ) Context: at rest and alcohol use Injuries sustained associated with event: none Current symptoms: back to baseline History: other (Chronic dizziness ) Treatments prior to arrival: none Related Data Home Medications ?Medication ?Instructions ?Recorded ?Confirmed acetaminophen 325 mg tablet 650 mg PO Q4H PRN Pain (Scale 08/05/23 08/05/23 Score 1-3) atorvastatin 80 mg tablet 80 mg PO BEDTIME 08/05/23 08/05/23 diclofenac sodium 1 % topical gel 1 g topical TID PRN pain 08/05/23 08/05/23 glipizide 10 mg tablet, extended 10 mg PO DAILY 08/05/23 08/05/23 release 24 hr ipratropium 0.5 mg-albuterol 3 mg 3 ml inhalation QID PRN Shortness 08/05/23 08/05/23 (2.5 mg base)/3 mL nebulization Of Breath Or Wheezing soln lisinopril 40 mg tablet 40 mg PO DAILY 08/05/23 08/05/23 loratadine 10 mg tablet 10 mg PO DAILY 08/05/23 08/05/23 metformin 1,000 mg tablet 1,000 mg PO BIDWM 08/05/23 08/05/23 sertraline 50 mg tablet 50 mg PO BEDTIME 08/05/23 08/05/23 Previous Rx's ?Medication ?Instructions ?Recorded carvedilol 25 mg tablet 25 mg PO BID #60 tabs 08/07/23 furosemide 20 mg tablet (Lasix) 20 mg PO DAILY #30 tabs 08/07/23 nifedipine 30 mg tablet,extended 60 mg PO DAILY #30 tabs 08/07/23 release 24 hr spironolactone 25 mg tablet 25 mg PO DAILY #30 tabs 08/07/23 hydralazine 10 mg tablet 20 mg PO TID #90 tabs 08/30/23 Allergies Allergy/AdvReac Type Severity Reaction Status Date / Time No Known Allergies Allergy Verified 10/23/23 09:11 Review of Systems 2 Review of Systems: Yes all other systems are reviewed and are negative [facility] Past Medical History Medical History Heart failure Hypercholesterolemia Hypertension Diabetes Social History Social History Household Members: Family Housing: House Do you presently have visiting nurse or other home services: No Alcohol intake: current Alcohol type: beer Patient Tobacco Use Status: Never used Tobacco Smoked in Last 30 Days: No Use of substances other than those prescribed or required for medical reasons: No Advance Directives: Yes Advance Directives on File: Yes Advance Directives Date on File: 08/08/23 Do you have a plan to hurt others: No Plan service: No Physical Exam 2 Vital Signs: Vital Signs: Last Vital Signs Temp 97.6 F 10/23/23 09:12 Pulse 60 10/23/23 11:48 Resp 16 10/23/23 11:48 BP 120/59 L 10/23/23 11:48 Pulse Ox 97 10/23/23 11:48 O2 Del Method Room Air 10/23/23 11:48 BMI result Body Mass Index 32.7 Appearance: Alert. Oriented X3. No acute distress. Head: normocephalic, atraumatic. Eyes: Pupils equal, round and reactive to light. EOM intact. No scleral icterus ENT: Pharynx normal. Neck: Normal inspection. Neck supple. CVS: Normal heart rate and rhythm. Pulses normal. Respiratory: No respiratory distress. Abdomen: Soft and nontender. Rectal: YEFRI performed. Minimal stool in rectal vault. No gross blood. Skin: Skin warm and dry. Normal skin color. Normal skin turgor. No rashes. Extremities: No lower extremity edema. No joint swelling. Neuro/psych: Oriented X 3. No motor deficit. No sensory deficit. CN II-XII intact. Normal speech and cognition. Equal and symmetric strength of upper and lower extremities bilaterally. Medical Decision Making Medical Decision Making MDM Narrative: 58 yo male with PMH significant for HTN, CHF, DM, CKD, RACHEL not on CPAP, depression, asthma, degeneration of cervical disc, former alcohol abuse (reportedly quit in July 2023) and newly diagnosed RA on prednisone, who presents to the ED for evaluation of acute dizziness with blurred vision prior to cardiac stress test [place] [facility] [place]. He reports symptoms have since resolved and he is feeling better. On exam, patient was oriented, CN II-XII intact, normal speech and cognition noted, and equal and symmetric strength of upper and lower extremities appreciated bilaterally. POC glucose 171. Random glucose 177. EKG normal without any ischemic changes. Labs show worsening anemia. H&H 9.6/28.6. BUN and Cr elevated 35 and 1.92 respectively. High-sensitivity troponin negative. Albumin 2.4. Patient denies blood in stool. Endorses frequent nose bleeds, with most recent epsiode last week. YEFRI performed at bedside, revealing minimal stool in rectal vault. No gross blood. Stool occult test negative. Patient remains feeling well, back to baseline. He would like to go home. He did not have any true syncopal episode today. Recommended that patient follows up with PCP and social insurance administrator outpatient. Reschedule cardiac stress test. Comfortable discharge home with outpatient follow-up and return precautions. We discussed his results, diagnosis, return precautions at the bedside. He agrees with plan. Differential Diagnosis Differential Diagnoses: The differential diagnosis associated with the presentation includes 1. Posterior CVA 2. Cardiac dysrhythmia 3. Hyperglycemia/ hypoglycemia 4. Alcohol intoxication 5. Vertigo 6. Orthostatic hypotension 7. Vasovagal episode 8. dehydration Admission/Observation Consideration of admission/observation: Escalation of care including admission/observation considered Lab Data MDM Lab Attestation statement: I reviewed the patient's lab results. Slightly worsening anemia. CKD at baseline. 10/23/23 10:12 10/23/23 10:12 Labs: Lab Results 10/23/23 10/23/23 Range/Units 09:32 10:12 WBC 7.8 (4.8-10.8) X10*3/uL RBC 3.34 L (4.60-5.80) X10*6/uL Hgb 9.6 L (14.0-18.0) g/dl Hct 28.6 L (42.0-52.0) % MCV 85.6 (80.0-98.0) fL MCH 28.7 (27.0-33.0) pg MCHC 33.6 (31.0-36.0) g/dl RDW 14.4 (11.0-16.0) % Plt Count 283 (160-400) X10*3/uL MPV 9.2 L (9.4-12.4) fL Immature Gran % (Auto) 0.8 H (0.0-0.4) % Neut % (Auto) 70.9 (45-73) % Lymph % (Auto) 21.2 (20-40) % [place] % (Auto) 5.0 (2-11) % Eos % (Auto) 1.8 (0-4) % Baso % (Auto) 0.3 (0-2) % Lymph # (Auto) 1.7 (1.2-4.9) X10*3/uL [place] # (Auto) 0.4 (0.1-1.2) X10*3/uL Eos # (Auto) 0.1 (0.0-0.4) X10*3/uL Baso # (Auto) 0.0 (0.0-0.2) X10*3/uL Abs Immat Gran (auto) 0.06 H (0.00-0.03) X10*3/uL Absolute Neuts (auto) 5.5 (2.0-8.3) x10*3/uL Absolute Nucleated RBC 0.000 (0.0-0.012) X10*3/uL Nucleated RBC % (auto) 0.0 (0.0-0.2) /100WBC Sodium 137 (135-145) mmol/L Potassium 4.6 (3.3-5.1) mmol/L Chloride 112 H (96-108) mmol/L Carbon Dioxide 17 L (22-29) mmol/L Anion Gap 13 (12-20) BUN 35 H (9-16) mg/dL Creatinine 1.92 H (0.5-1.4) mg/dL Estim Creat Clear Calc 46.3 Estimated GFR 36 POC Glucose 171 H (60-115) mg/dL Random Glucose 177 H (60-115) mg/dL Calcium 8.6 (8.4-10.2) mg/dL Magnesium 2.1 (1.6-2.6) mg/dL Total Bilirubin 0.1 (0.0-1.0) mg/dL Direct Bilirubin < 0.2 (0.0-0.5) mg/dL AST 12 (5-37) U/L ALT 15 (0-40) U/L Alkaline Phosphatase 87 (39-117) U/L Troponin I High Sens < 2.7 (<3.5-35.0) ng/L B-Natriuretic Peptide 89 (<100) pg/mL Total Protein 5.6 L (6.5-8.0) g/dL Albumin 2.4 L (3.5-5.0) g/dL TSH 2.06 (0.32-4.0) uIU/mL Ethyl Alcohol < 10 mg/dL Independent Interpretation I performed an independent interpretation of an: EKG Interpretation: EKG with normal sinus rhyhtm. Ventricular rate 64 BPM. Normal QTC. Normal NC interval. No ST segmemt elevation or depression. Independent Historian Clinical information obtained from an independent historian. History obtained from or confirmed by: Spouse External Record Review External record reviewed: Inpatient record, Outpatient record, Prior outpatient labs and Prior outpatient radiology Tests considered The following testing was considered but not selected: CT head considered. Paresthesias and dizziness appear to be chronic. Chronic Conditions Patient?s care impacted by: Diabetes, Hypertension and Other (CHF, RACHEL, CKD, depression, asthma, anemia ) Critical Care Time Critical Care Time Critical Care Time: No Discharge Plan Discharge Clinical Impression: Dizziness Patient Disposition: Home, Self-Care Instructions: Dizziness (ED) Additional Instructions: Work-up in ED largely unremarkable, except for mildly worsening anemia. Patient feels better, symptoms have resolved. Patient did not truly syncopize. Cleared for discharge. Follow-up with PCP and social insurance administrator outpatient. Return to ED if symptoms worsen. Prescriptions: No Action hydralazine 10 mg tablet 20 mg PO TID Qty: 90 3RF Protocol: Hold for SBP< HOLD for SBP < : 90 atorvastatin 80 mg tablet 80 mg PO BEDTIME acetaminophen 325 mg Tablet 650 mg PO Q4H PRN (Reason: Pain (Scale Score 1-3)) ipratropium-albuterol 0.5 mg-3 mg(2.5 mg base)/3 mL solution for nebulization 3 ml inhalation QID PRN (Reason: Shortness Of Breath Or Wheezing) glipizide 10 mg tablet extended release 24hr 10 mg PO DAILY metformin 1,000 mg tablet 1,000 mg PO BIDWM lisinopril 40 mg tablet 40 mg PO DAILY sertraline 50 mg tablet 50 mg PO BEDTIME loratadine 10 mg tablet 10 mg PO DAILY diclofenac sodium 1 % gel 1 g topical TID PRN (Reason: pain) nifedipine 30 mg Tablet Extended Release 24hr 60 mg PO DAILY Qty: 30 3RF Protocol: Hold for SBP< HOLD for SBP < : 90 carvedilol 25 mg Tablet 25 mg PO BID Qty: 60 2RF Protocol: Hold for SBP/HR < HOLD for SBP < : 90 HOLD for HR < : 60 spironolactone 25 mg Tablet 25 mg PO DAILY Qty: 30 0RF Protocol: Hold for SBP< HOLD for SBP < : 90 furosemide [Lasix] 20 mg tablet 20 mg PO DAILY Qty: 30 3RF Referrals: [facility] [Provider Group] Chris Boucher III, MD [Primary Care Provider] - Print Language: Croatian
[2023-10-23 09:36] LABS: Glucose, Whole Blood 171 mg/dL (60-115)
--- NOTE | 2023-10-23 09:46 | ECG_ITS ---
Test Reason : DIZZINESS Blood Pressure : / mmHG Vent. Rate : 064 BPM Atrial Rate : 064 BPM P-R Int : 172 ms QRS Dur : 092 ms QT Int : 420 ms P-R-T Axes : 038 037 031 degrees QTc Int : 433 ms Normal sinus rhythm Normal ECG When compared with ECG of 06-SEP-2023 12:28, No significant change was found Referred By: Carie Turner Electronically Signed By:Antonio Johnston
[2023-10-23 10:15] VITALS: BP 122/59; BP 123/59; BP 128/71; PULSE 60; PULSE 62; PULSE 64
[2023-10-23 10:17] LABS: MANUAL DIFF FLAG NO
[2023-10-23 10:18] LABS: Basophils Percent Auto 0.3 % (0-2); Eosinophils Absolute Auto 0.1 X10*3/uL (0.0-0.4); Eosinophils Percent Auto 1.8 % (0-4); Hematocrit 28.6 % (42.0-52.0); Hemoglobin 9.6 g/dl (14.0-18.0); Imm Gran Abs Auto 0.06 X10*3/uL (0.00-0.03); Imm Gran Pct Auto 0.8 % (0.0-0.4); Lymphocytes Absolute Auto 1.7 X10*3/uL (1.2-4.9); Lymphocytes Percent Auto 21.2 % (20-40); Mean Corpuscular HGB Conc 33.6 g/dl (31.0-36.0); Mean Corpuscular Hemoglobin 28.7 pg (27.0-33.0); Mean Corpuscular Volume 85.6 fL (80.0-98.0); Mean Platelet Volume 9.2 fL (9.4-12.4); Monocytes Absolute Auto 0.4 X10*3/uL (0.1-1.2); Neutrophils Absolute Auto 5.5 x10*3/uL (2.0-8.3); Neutrophils Percent Auto 70.9 % (45-73); Platelet Count 283 X10*3/uL (160-400); Red Blood Count 3.34 X10*6/uL (4.60-5.80); Red Cell Distribution Width 14.4 % (11.0-16.0); White Blood Count 7.8 X10*3/uL (4.8-10.8)
[2023-10-23 10:43] LABS: B Type Natriuretic Peptide 89 pg/mL (<100)
[2023-10-23 10:46] LABS: Alanine Aminotransferase 15 U/L (0-40); Albumin Level 2.4 g/dL (3.5-5.0); Alkaline Phosphatase 87 U/L (39-117); Anion Gap 13 (12-20); Aspartate Amino Transferase 12 U/L (5-37); Bilirubin Direct < 0.2 mg/dL (0.0-0.5); Bilirubin Total 0.1 mg/dL (0.0-1.0); Blood Urea Nitrogen 35 mg/dL (9-16); Calcium 8.6 mg/dL (8.4-10.2); Carbon Dioxide 17 mmol/L (22-29); Chloride 112 mmol/L (96-108); Creatinine Clr Calc Pharmacy 46.3; Estimated Glomerular Filt Rate 36; Ethanol < 10 mg/dL; Glucose Random 177 mg/dL (60-115); Magnesium 2.1 mg/dL (1.6-2.6); Potassium 4.6 mmol/L (3.3-5.1); Sodium 137 mmol/L (135-145); Total Protein 5.6 g/dL (6.5-8.0)
[2023-10-23 10:48] LABS: Troponin-I High Sensitivity < 2.7 ng/L (<3.5-35.0)
[2023-10-23 10:59] LABS: TSH reflex Free T4 2.06 uIU/mL (0.32-4.0)
[2023-10-23 11:48] VITALS: BP 120/59; PULSE 60; RESP 16; O2SAT 97
[2023-10-23 12:36] VITALS: BP 120/70; PULSE 61; RESP 16; TEMP 36.6; O2SAT 97
[2023-10-23 12:42] LABS: Appearance Urine Clear; Color Urine Yellow; Glucose Urine UA 250 mg/dL (Negative); Leukocyte Esterase Urine Negative (Negative); Nitrite Urine Negative (Negative); UMIC TRIGGER UACC YES; Urine Blood Trace (Negative); Urine Ketones Negative (Negative); Urine Protein >=1000 (4+) mg/dL (Neg-Trace)
[2023-10-23 12:50] LABS: Bacteria Urine None Seen (None Seen); Squamous Epithelial Cell Urine 0-2 /HPF (0-2); UACC Culture Trigger YES
[2023-10-23 12:52] LABS: Amphetamine Screen Urine Not Detected (Not Detect); Barbiturates, Urine Not Detected (Not Detect); Benzodiazepines Screen Urine Not Detected (Not Detect); Buprenorphine Scr Not Detected (Not Detect); Cannabinoid Screen Urine Not Detected (Not Detect); Cocaine Screen Urine Not Detected (Not Detect); Fentanyl, urine Not Detected (Not Detect); Methadone Screen, Urine Not Detected (Not Detect); Opiate Screen Urine Not Detected (Not Detect); Oxycodone Screen Urine Not Detected (Not Detect); Phencyclidine Screen Urine Not Detected (Not Detect)
== END 2023-10-23 12:53 | disposition home or self-care (01) ==
PROVIDERS: Physician Assistant; Emergency Provider Emergency Medicine; PCP Internal Medicine
DX: R55 Syncope and collapse (principal); R42 Dizziness and giddiness; H53.8 Other visual disturbances; M79.18 Myalgia, other site; R06.02 Shortness of breath; Z79.899 Other long term (current) drug therapy
CPT/HCPCS: 36415; 80048; 80076; 80307; 81001; 82947; 83735; 83880; 84443; 84484; 85025; 87086; 93005; 99283; 99285

== ENCOUNTER → 2023-10-23 09:46 | Outpatient (BNV) | payer OTHER, SELFPAY | PROVIDERS: Emergency Provider Emergency Medicine; PCP Internal Medicine; Visit Provider Internal Medicine Cardiovascular Disease | DX: R42 Dizziness and giddiness (principal) | CPT/HCPCS: 93010 ==

== ENCOUNTER → 2023-10-31 15:19 | Outpatient (REF) | payer OTHER, SELFPAY | LOC: HO.SL 15:19 | PROVIDERS: PCP Internal Medicine; Visit Provider Internal Medicine Cardiovascular Disease | DX: I50.9 Heart failure, unspecified (principal); I16.0 Hypertensive urgency; R60.1 Generalized edema | CPT/HCPCS: 95806 ==

== ENCOUNTER → 2023-10-31 15:30 | Outpatient (BNV) | payer OTHER, SELFPAY | PROVIDERS: PCP Internal Medicine; Visit Provider Internal Medicine | DX: G47.33 Obstructive sleep apnea (adult) (pediatric) (principal) | CPT/HCPCS: 95806 ==

== ENCOUNTER → 2023-11-20 09:25 | Outpatient (BNVA) | payer OTHER, SELFPAY | PROVIDERS: PCP Internal Medicine; Visit Provider Internal Medicine Cardiovascular Disease ==

== ENCOUNTER 2023-11-27 08:12 | Outpatient (REF) | payer OTHER, SELFPAY ==
[2023-11-27 08:24] LABS: MANUAL DIFF FLAG NO
[2023-11-27 08:26] LABS: Basophils Percent Auto 0.4 % (0-2); Eosinophils Absolute Auto 0.1 X10*3/uL (0.0-0.4); Eosinophils Percent Auto 2.1 % (0-4); Hematocrit 30.6 % (42.0-52.0); Hemoglobin 10.1 g/dl (14.0-18.0); Imm Gran Abs Auto 0.01 X10*3/uL (0.00-0.03); Imm Gran Pct Auto 0.2 % (0.0-0.4); Lymphocytes Absolute Auto 1.4 X10*3/uL (1.2-4.9); Lymphocytes Percent Auto 30.1 % (20-40); Mean Corpuscular Hemoglobin 29.4 pg (27.0-33.0); Mean Corpuscular Volume 89.2 fL (80.0-98.0); Mean Platelet Volume 9.5 fL (9.4-12.4); Monocytes Absolute Auto 0.4 X10*3/uL (0.1-1.2); Monocytes Percent Auto 8.6 % (2-11); Neutrophils Absolute Auto 2.8 x10*3/uL (2.0-8.3); Neutrophils Percent Auto 58.6 % (45-73); Platelet Count 239 X10*3/uL (160-400); Red Blood Count 3.43 X10*6/uL (4.60-5.80); Red Cell Distribution Width 16.1 % (11.0-16.0); White Blood Count 4.8 X10*3/uL (4.8-10.8)
[2023-11-27 08:38] LABS: Anion Gap 7 (12-20); Blood Urea Nitrogen 35 mg/dL (9-16); Calcium 8.3 mg/dL (8.4-10.2); Carbon Dioxide 24 mmol/L (22-29); Chloride 114 mmol/L (96-108); Estimated Glomerular Filt Rate 31; Glucose Random 156 mg/dL (60-115); Potassium 4.7 mmol/L (3.3-5.1); Sodium 140 mmol/L (135-145)
== END 2023-11-27 08:13 | disposition home or self-care (01) ==
LOC: HO.LAB 08:12
PROVIDERS: Nurse Practitioner; PCP Internal Medicine; Visit Provider Internal Medicine Cardiovascular Disease
DX: I10 Essential (primary) hypertension (principal); I50.9 Heart failure, unspecified; R42 Dizziness and giddiness
CPT/HCPCS: 36415; 80048; 85025

== ENCOUNTER → 2023-11-28 09:15 | Outpatient (REF) | payer OTHER, SELFPAY ==
--- NOTE | ~2023-11-28 | NM_ITS ---
Myocardial perfusion study Indication: Heart failure to evaluate for myocardial ischemia Technique: The patient was brought in for a Lexiscan perfusion study on 11/28/2023. Patient performed low-level exercise and was injected 0.4 mg of Lexiscan intravenously. Within a minute of injection, 35 mCi of sestamibi was given intravenously. Images were obtained using the SPECT gamma camera interlaced with the gating device. Images were obtained in supine position. Resting perfusion study was performed on 12/03/2023. Patient was administered 35 mCi of sestamibi intravenously at rest. Images were then obtained in supine position. Images obtained with and without CT attenuation. Total DLP 141 mGy-cm. Images were processed with the software and compared side to side in short axis, horizontal long axis and vertical long axis views. Findings: The stress perfusion study showed non attenuated images show minimal thinning of the distal anterior wall of the LV myocardium. Remainder of the LV myocardium is normally perfused. Attenuation corrected images show mildly reduced uptake in the apex of the LV myocardium.. The gated study shows normal LV systolic function with calculated LVEF of 50%. LV cavity is normal in size. The gated study shows normal systolic wall thickening and contraction of segments. Resting study shows no significant change in perfusion pattern compared to stress perfusion study. Gating at rest reveals normal systolic wall motion with visually estimated ejection fraction at greater than 50%. The findings are consistent with no clear reversible defect suggestive of ischemia.. NM/NM cardiolite stress test Impression: 1. Myocardial perfusion imaging study shows likely normal myocardial perfusion 2. Gated LVEF is 50% 3. Transient ischemic dilatation not present EKG is nondiagnostic for ischemia
--- NOTE | 2023-11-28 09:17 | CA_ITS ---
Acquisition Time: 2023-11-28 09:20:31 Total Exercise Time: 00:03:23 Test Indications: heart failure Medications: Protocol: ROBERT Max HR: 087 BPM 54% of Pred: 160 BPM Max BP: 124/064 mmHG Max Work Load: 5.0 METS Exercise stress test exercise 3 min 23 sec 54% MPHR achieving, without anginal symptoms, without arrhythmias, with normotensive response to exercise ,with request to stop due to leg wekaness, with nondiagnoisitic test. Test changed to pharmacological stress test with Lexiscan Referred By: Lewis Willett Overread By: Altagracia Ward
== END ==
LOC: HO.CARD 09:15
PROVIDERS: PCP Internal Medicine; Visit Provider Internal Medicine Cardiovascular Disease
DX: I50.9 Heart failure, unspecified (principal); I16.0 Hypertensive urgency; R60.1 Generalized edema
CPT/HCPCS: 78452; 93017; A9500; J0280; J2785

== ENCOUNTER → 2023-11-28 09:17 | Outpatient (BNV) | payer OTHER, SELFPAY | PROVIDERS: PCP Internal Medicine; Visit Provider Nurse Practitioner | DX: I50.9 Heart failure, unspecified (principal) | CPT/HCPCS: 78452; 93016; 93018 ==

== ENCOUNTER 2024-01-07 14:26 | Outpatient (AMB) | payer OTHER, SELFPAY ==
[2024-01-07 14:28] VITALS: BP 124/70; PULSE 76; BMI 34.2
--- NOTE | 2024-01-07 14:28 | MHC.OFFVIS ---
Vital Signs 01/07/24 14:28 Height 5 ft 8 in Weight 224 lb 13.944 oz BMI 34.2 BP 124/70 Blood Pressure Location Lt brachial Position Sitting Pulse 76 Pulse Source Pulse Oximeter Intake Visit Reasons: overdue follow-up Allergies No Known Allergies Allergy (Verified 10/23/23 09:11) HPI Comments Details: 58-year-old male presents for a follow-up after cardiac testing. He had a stress test and sleep study performed. He presents with his ex- Geno who has been helping him. He was seen by Dr. Willett in the hospital for CHF exacerbation and hypertensive urgency. Patient reports he feels very tired. He has reduced salt and carbs from his diet. He reports compliance with his medications. His biggest complaint is his arthritic pain but has been having trouble with the right medication due to his kidney levels. He has recently had a needle aspiration of his eye per Geno it is related to his diabetes but they cannot remember the name of it at this time. He sees them in about a week He reports when he takes his medication in the morning he gets a lot of GI distress but he takes his metformin without food. He has a wrist cuff to check his blood pressures and the numbers are very inconsistent . He is seeing Dr. Dillard for his kidneys. He denies chest pains and Geno states he does get short of breath easily. His swelling in his extremities comes and goes. He is not weight himself daily. [facility] Medical History (Updated 01/08/24 @ 08:29 by Altagracia Ward NP) RACHEL (obstructive sleep apnea) Heart failure Hypercholesterolemia Hypertension Diabetes Social History Household Members: Family Housing: House Do you presently have visiting nurse or other home services: No Alcohol intake: current Alcohol type: beer Patient Tobacco Use Status: Never used Tobacco Advance Directives Date on File: 08/08/23 service: No Review of Systems Const Denies weakness ENT Denies dizziness Card Denies chest pain, Denies chest pain with activity, Denies syncope, Denies rapid heart rate, Denies pedal edema, Denies edema, Denies leg edema, Denies lightheadedness, Denies palpitations, Denies dyspnea, Denies dyspnea on exertion and Denies orthopnea Resp Denies cough, Denies dyspnea and Denies dyspnea on exertion GI Denies hematochezia and Denies change in stool character Musc Denies abnormal gait, Denies muscle cramps, Denies muscle weakness, Denies numbness, Denies radiating pain into limb and Denies tingling Neuro Denies abnormal gait, Denies dizziness, Denies syncope, Denies numbness, Denies tingling and Denies weakness Endo Denies palpitations Physical Exam Vital Signs: Last Vital Signs Pulse 76 01/07/24 14:28 BP 124/70 01/07/24 14:28 BMI result Body Mass Index 34.2 Const General: healthy appearing and no acute distress Orientation/consciousness: patient oriented x3 HEENT Head: Yes normal to inspection Eyes General: appearance normal, both eyes and all related structures Neck Neck: Yes normal visual inspection Chest Chest palpation & inspection: normal inspection of the chest Resp Effort & Inspection: normal respiratory effort Auscultation: clear to auscultation bilaterally Cardio Jugular venous distension: no JVD Palpation: normal PMI Rate: regular rate Rhythm: regular rhythm Heart sounds: S1 normal heart sound present, S2 normal heart sound present, no click, no gallops, no murmurs and no rubs GI Inspection: Yes normal to inspection Palpation (GI): Soft to palpation Skin General skin exam: no rashes or lesions noted Neuro General: patient oriented x3 Extrem General: Yes normal to inspection and Yes edema Psych Appearance: grossly normal Results Reviewed Results Reviewed: NM/NM cardiolite stress test Impression: 1. Myocardial perfusion imaging study shows likely normal myocardial perfusion 2. Gated LVEF is 50% 3. Transient ischemic dilatation not present Home sleep study: Obstructive sleep apnea, mild. Total sleep time AHI 9,4 and snoring for 43% of the time. Most obstructive events are in the supine postion Assessment & Plan Assessment & Plan (1) Hypertension: Code(s): I10 - Essential (primary) hypertension Category: Medical Plan: Blood pressure within range. Home device compared to manual and home wrist cuff is not accurate. Will give RX for new cuff and he will bring to a DME supplier. Blood pressure within range today. He is on carvedilol 25mg, hydralazine 20mg, lisinopril 40mg, and spironlactone 25mg. Myocardial perfusion shows likely normal myocardial perfusion. (2) Heart failure: Code(s): I50.9 - Heart failure, unspecified Category: Medical Plan: Currently having 2+ edema in ankles. Will send for blood work. Discussed in detail the reason to avoid salt in diet and daily weight monitoring. He is on lasix 20mg and sprinolactone 25mg. (3) RACHEL (obstructive sleep apnea): Code(s): G47.33 - Obstructive sleep apnea (adult) (pediatric) Category: Medical Plan: Mild RACHEL on sleep study. Mostly positionally when laying in supine position. Weight loss and position therapy advised. Plan Will discuss further with Dr. Willett Orders: Orders Basic Metabolic Panel 01/07/24 I10 - Essential (primary) hypertension, I50.9 - Heart failure, unspecified B Type Natriuretic Peptide 01/07/24 I10 - Essential (primary) hypertension, I50.9 - Heart failure, unspecified Medications: New blood pressure monitor (Blood Pressure Kit) As directed 1 ea 0RF I10 - Essential (primary) hypertension Coding Level of Care Code Est Pt Level 4 (77322) Diagnoses Hypertension I10 Heart failure I50.9 RACHEL (obstructive sleep apnea) G47.33
== END 2024-01-07 15:05 | disposition home or self-care (01) ==
PROVIDERS: PCP Internal Medicine; Visit Provider Nurse Practitioner
DX: I10 Essential (primary) hypertension (principal); I50.9 Heart failure, unspecified; G47.33 Obstructive sleep apnea (adult) (pediatric)
CPT/HCPCS: 99214

== ENCOUNTER 2024-01-07 14:26 | Outpatient (REF) | payer OTHER, SELFPAY ==
[2024-01-07 16:57] LABS: Anion Gap 12 (12-20); Blood Urea Nitrogen 38 mg/dL (9-16); Calcium 8.1 mg/dL (8.4-10.2); Carbon Dioxide 20 mmol/L (22-29); Chloride 112 mmol/L (96-108); Estimated Glomerular Filt Rate 27; Glucose Random 167 mg/dL (60-115); Sodium 140 mmol/L (135-145)
[2024-01-07 17:03] LABS: B Type Natriuretic Peptide 156 pg/mL (<100)
== END 2024-01-07 14:27 | disposition home or self-care (01) ==
LOC: HO.LAB 14:26
PROVIDERS: PCP Internal Medicine; Visit Provider Nurse Practitioner
DX: I11.0 Hypertensive heart disease with heart failure (principal); I50.9 Heart failure, unspecified; G47.33 Obstructive sleep apnea (adult) (pediatric)
CPT/HCPCS: 36415; 80048; 83880

== ENCOUNTER 2024-08-07 13:10 | Outpatient (AMB) | payer OTHER, SELFPAY ==
[2024-08-07 13:30] VITALS: BP 132/78; PULSE 60; BMI 29.6
--- NOTE | 2024-08-07 13:30 | MHC.OFFVIS ---
Vital Signs 08/07/24 13:30 Height 5 ft 8 in Weight 195 lb BMI 29.6 BP 132/78 Blood Pressure Location Lt brachial Position Sitting Pulse 60 Pulse Source Monitor Intake Visit Reasons: overdue follow-up Narrow Gauge Operator Required: Yes Narrow Gauge Operator Services: Narrow Gauge Operator Offered & Declined Accompanied by: Spouse Allergies No Known Allergies Allergy (Verified 10/23/23 09:11) Medication List - Last Reconciled 08/07/24 by Chris Espinosa NP atorvastatin 80 mg PO BEDTIME blood pressure monitor (Blood Pressure Kit) As directed carvedilol 25 mg See Protocol PO BID dapagliflozin propanediol 5 mg PO DAILY diclofenac sodium 1% 1 g topical TID PRN furosemide 20 mg PO DAILY insulin glargine 8 units (0.08 mL) subcut QPM ipratropium-albuterol 0.5 mg-3 mg(2.5 mg base)/3 mL 3 mL inhalation QID PRN lisinopril 40 mg PO DAILY nifedipine ER 90 mg See Protocol PO DAILY sertraline 100 mg PO DAILY spironolactone 25 mg See Protocol PO DAILY HPI Comments Details: This is a 59-year-old male patient presenting for a follow-up visit. He has history of diabetes, hypertension, hypercholesterolemia, sleep apnea, and congestive heart failure. The patient is accompanied by his ex- Geno, who assists him with his appointments. He also has a nurse who helps manage his medications in the morning and evening. Patient reports feeling well from cardiac standpoint but his main concern is that he has been experiencing diarrhea, leading him to lose some weight. Previously, she high distress was attributed to metformin, but even after discontinuing it, patient states the symptoms persisting. Patient has not seen any GI for this. He does follow-up with Dr. Dillard for elevated QT function and states has recently done labs with him. The patient notes that his leg swelling can be intermittent but now that the nurse comes to give his medications he states has not experienced any worsening leg swelling. Otherwise patient denies any exertional chest pain, shortness of breath, dizziness, palpitations, orthopnea, PND, presyncope, or syncope. [facility] Medical History (Updated 08/07/24 @ 14:10 by Chris Espinosa NP) RCAHEL (obstructive sleep apnea) Heart failure Hypercholesterolemia Hypertension Diabetes Social History Household Members: Family Housing: House Do you presently have visiting nurse or other home services: No Alcohol intake: current Alcohol type: beer Patient Tobacco Use Status: Never used Tobacco Advance Directives Date on File: 08/08/23 service: No Review of Systems Const Denies weakness ENT Denies dizziness Card Denies chest pain, Denies chest pain with activity, Denies syncope, Denies rapid heart rate, Denies pedal edema, Denies edema, Denies leg edema, Denies lightheadedness, Denies palpitations, Denies dyspnea, Denies dyspnea on exertion and Denies orthopnea Resp Denies cough, Denies dyspnea and Denies dyspnea on exertion GI Denies hematochezia and Denies change in stool character Musc Denies abnormal gait, Denies muscle cramps, Denies muscle weakness, Denies numbness, Denies radiating pain into limb and Denies tingling Neuro Denies abnormal gait, Denies dizziness, Denies syncope, Denies numbness, Denies tingling and Denies weakness Endo Denies palpitations Physical Exam Vital Signs: Last Vital Signs Pulse 60 08/07/24 13:30 BP 132/78 08/07/24 13:30 BMI result Body Mass Index 29.6 Const General: cooperative, healthy appearing, comfortable and no acute distress Orientation/consciousness: patient oriented x3 HEENT Head: Yes normal to inspection Neck Neck: Yes normal visual inspection, Yes trachea midline and Yes supple Chest Chest palpation & inspection: normal inspection of the chest Resp Effort & Inspection: normal respiratory effort Auscultation: clear to auscultation bilaterally, no crackles, no rales, no rhonchi and no wheezes Cardio Jugular venous distension: no JVD Palpation: normal PMI Rate: regular rate Rhythm: regular rhythm Heart sounds: S1 normal heart sound present, S2 normal heart sound present, no click, no gallops, no murmurs and no rubs Peripheral pulses: Peripheral pulses 2+ throughout GI Inspection: Yes normal to inspection Palpation (GI): Soft to palpation Auscultation: normal bowel sounds Skin General skin exam: no rashes or lesions noted Neuro General: patient oriented x3 Extrem General: Yes normal to inspection, No calf tenderness and Yes edema (trace edema to b/l LE) Psych Appearance: grossly normal Mental Status: mental status grossly normal Speech and movement: Normal speech and movement present Office Procedures EKG Details: EKG today showed normal sinus rhythm, rate 60 beats per minute, nonspecific ST-T wave abnormality, [place], [place] [id number], Complete Assessment & Plan Assessment & Plan (1) Hypertension: Code(s): I10 - Essential (primary) hypertension Category: Medical Plan: Blood pressure today is well-controlled. No med changes at this time. Ideally blood pressure less than 130/84. (2) Heart failure: Code(s): I50.9 - Heart failure, unspecified Category: Medical Plan: 08/06/2023-echo showed low-normal EF 50-55% with severe LVH with impaired relaxation filling pattern, ascending aorta size at 3.6 cm. We will update his echo prior to his next office visit. Patient has some trace edema to his lower legs, recommended elevating then when sitting and wearing compression socks. Continue diuretic therapy. (3) Diabetes: Code(s): E11.9 - Type 2 diabetes mellitus without complications Category: Medical Plan: Patient states his blood sugars have been well maintained. Ideally A1c less than 7%. Continue with high-dose statin therapy. Ideally, LDL less than 70. Advised patient to continue with heart healthy diet, regular exercise, and med compliance. We will refer him to GI for recurrent diarrhea and weight loss. Patient will follow-up in 6 months. In the interim, patient will call the office with any concerns or change in symptoms. This note was generated using voice recognition software. While every effort has been made to ensure accuracy and proper flocculator operator, there may be occasional errors that could affect the content or meaning of the described symptoms. Orders: Orders AMB EKG-In Office Today I50.9 - Heart failure, unspecified CA echo transthoracic complete Today I50.9 - Heart failure, unspecified Referrals Gastroenterology Referral R10.9 - Unspecified abdominal pain Medications: New insulin glargine 8 units (0.08 mL) subcut QPM 10 mL 0RF Coding Level of Care Code Est Pt Level 4 (67670) Diagnoses Hypertension I10 Heart failure I50.9 Diabetes E11.9 CPT Codes EKG - CPT: 60567-[id number], Complete ([id number]) Time Spent (min) 32 Comment Time spent in reviewing the chart, test results, assessment, counseling and documentation.
--- OUTSIDE RECORDS SUMMARY | 2024-08-07 13:37 | XMS_ITS | Encounter Summary ---
Author Organization [facility] Address [address] [place] [phone] Phone Care Team Providers Care Photography Intern Name Role Phone Chris Boucher MD Primary Care Provider [phone] Reason for Visit * Reason Comments Chronic Kidney Disease Encounter Details Date Type Department Care Team (Late st Contact Info) Description 08/03/2024 2:15 PM EST Office Visit [facility]. [address] [phone] Fracisco Dillard MD [address] [address] Stage 3 chronic kidney disease, not otherwise specified (HCC) (Primary Dx); Hypertension; Diabetes mellitus, not otherwise specified (HCC); Nephrotic range proteinuria; Anemia in chronic kidney disease Social History Tobacco Use Types Packs/Day Years Used Date Smoking Tobacco: Never Assessed Sex and Gender Information Value Date Recorded Sex Assigned at Not on file Legal Sex Male 4:42 PM EST Gender Identity Not on file Sexual Orientation Not on file documented as of this encounter Last Filed Vital Signs Vital Sign Reading Time Taken Comments Blood Pressure 140/82 08/03/2024 2:11 PM EST Pulse 68 08/03/2024 2:11 PM EST Temperature - - Respiratory Rate - - Oxygen Saturation - - Inhaled Oxygen Concentration - - Weight 89.8 kg (198 lb) 08/03/2024 2:11 PM EST Height - - Body Mass Index - - documented in this encounter Progress Notes * Fracisco Dillard MD - 08/03/2024 2:15 PM EST [facility] Patient Name: Diana Hercules Date of : 1965, 59 y.o. Date: 08/03/2024 Referring MD: Chris Boucher MD PCP: Chris Boucher MD Reason For Visit: I had the pleasure of seeing your patient for follow up of CKD. The following portions of the patient's chart were reviewed in this encounter and updated as appropriate: Allergies Meds Problems Med Hx Surg Hx Fam Hx Constitutional: Negative for chills, fever, malaise/fatigue and weight loss. HENT: Negative for ear pain, hearing loss and tinnitus. Eyes: Negative for blurred vision, double vision, photophobia and pain. Respiratory: Negative for cough, hemoptysis, sputum production, shortness of breath and wheezing. Cardiovascular: Negative for chest pain, palpitations, orthopnea, claudication and leg swelling. Gastrointestinal: Negative for abdominal pain, diarrhea, nausea and vomiting. Genitourinary: Negative for dysuria, flank pain, frequency, hematuria and urgency. Musculoskeletal: Negative for myalgias. Skin: Negative for itching and rash. Neurological: Negative for dizziness, tingling and headaches. Psychiatric/Behavioral: Negative for depression. Full 13 point review of systems unremarkable except as noted above. History reviewed. No pertinent past medical history. History reviewed. No pertinent surgical history. Social History Tobacco Use Smoking status: Not on file Smokeless tobacco: Not on file Substance Use Topics Alcohol use: Not on file History reviewed. No pertinent family history. Current Outpatient Medications Medication Sig Dispense Refill hydrALAZINE (APRESOLINE) 10 MG tablet Take 20 mg by mouth in the morning and 20 mg at noon and 20 mg in the evening. Insulin Pen Needle (Pen Otwell) 32G X 4 MM misc 1 Device by Does not apply route daily. leflunomide (ARAVA) 20 MG tablet loratadine (CLARITIN) 10 MG tablet Take 10 mg by mouth in the morning. NIFEdipine CC (ADALAT CC) 90 MG 24 hr tablet Take 90 mg by mouth predniSONE (DELTASONE) 10 MG tablet Take 1 tablet by mouth in the morning. rosuvastatin (CRESTOR) 40 MG tablet Take 40 mg by mouth in the morning. sertraline (ZOLOFT) 100 MG tablet Take 100 mg by mouth in the morning. spironolactone (ALDACTONE) 25 MG tablet Take 25 mg by mouth in the morning. zolpidem (AMBIEN) 10 MG tablet Take 10 mg by mouth 1 (one) time each day in the evening lisinopril 10 MG tablet Take 1 tablet by mouth 1 (one) time each day No current facility-administered medications for this visit. No Known Allergies Objective: Vitals: 08/03/24 1411 BP: 140/82 Pulse: 68 Weight: 198 lb (89.8 kg) Physical Exam Constitutional: Oriented to person, place, and time. HEENT: Mouth/Throat: Oropharynx is clear and moist. Eyes: Pupils are equal, round, and reactive to light. Neck: No JVD present. Cardiovascular: Regular rhythm. Pulmonary/Chest: Breath sounds normal. Abdominal: Soft. There is no abdominal tenderness. Musculoskeletal: Normal range of motion. Neurological: Alert and oriented to person, place, and time. Skin: Skin is warm. Psychiatric: Normal mood and affect. No results found for: EGFRAFR No results found for: EGFRNAFR Chemistry Lab Units 04/28/24 1209 CREATININE mg/dL 3.08* BUN mg/dL 35* BUN / CREAT RATIO 11.4 GLUCOSE mg/dL 103* POTASSIUM mmol/L 4.4 SODIUM mmol/L 141 CO2 mmol/L 22 CHLORIDE mmol/L 113* Bone Mineral Lab Units 04/28/24 1209 CALCIUM mg/dL 8.5 No lab exists for component: SPECGRAV , GLUCOSEUR , BILIRUBINUR , RBCUR , UPROTEIN , LEUKOCYTESUR , NITRITE PLAN: Assessment & Plan 1. Stage 3 chronic kidney disease, not otherwise specified (HCC) 2. Hypertension 3. Diabetes mellitus, not otherwise specified (HCC) 4. Nephrotic range proteinuria 5. Anemia in chronic kidney disease He has worsening kidney function. He has nephrotic range proteinuria. He also has microscopic hematuria. He has CKD due to: -diabetic and hypertensive and kidney disease (in the setting of poorly controlled DM and HTN) -analgesic nephropathy Hepatitis profile is negative. Complement level is normal. SPEP is normal. MIGUEL is positive. Blood pressure has improved. He is on ACEi and MRA. (he does not have his medication list and seems unsure about what he takes) He is on SGTL2i. He has nephrogenic anemia. He will likely need CHRISTINE. I will check iron profile. PLAN: Doxazosin 2 mg daily Nifedipine 90 mg daily Carvedilol 25 mg bid Spironolactone 25 mg daily Lisinopril 40 mg daily Furosemide 20 mg daily Kidney function and electrolytes CBC and iron profile UPCR iPTH and vit D Avoid NSAID Low sodium diet Orders Placed This Encounter Renal funtion panel Ferritin Iron Panel (Fe, TIBC, TSAT) CBC without diff Return in 2 months (on 10/01/2024). Fracisco Dillard MD documented in this encounter Plan of Treatment Upcoming Encounters Date Type Department Care Team (Late st Contact Info) Description 10/05/2024 3:30 PM EDT Office Visit [facility] [address] [phone] Fracisco Dillard MD [address] [phone] documented as of this encounter Procedures Procedure Name Priority Date/Time Associated Diagnosis Comments IRON PANEL (FE, TIBC, TSAT) Routine 08/03/2024 2:41 PM EST Stage 3 chronic kidney disease, not otherwise specified (HCC) CBC Routine 08/03/2024 2:41 PM EST Stage 3 chronic kidney disease, not otherwise specified (HCC) FERRITIN Routine 08/03/2024 2:41 PM EST Stage 3 chronic kidney disease, not otherwise specified (HCC) RENAL FUNCTION PANEL Routine 08/03/2024 2:41 PM EST Stage 3 chronic kidney disease, not otherwise specified (HCC) documented in this encounter Results * (ABNORMAL) CBC without diff (08/03/2024 2:41 PM EST) WBC 4.9 3.4 - 10.8 x10E3/uL [facility] RBC 3.57(L) 4.14 - 5.80 x10E6/uL [facility] Hemoglobin 9.9(L) 13.0 - 17.7 g/dL [facility] Hematocrit 31.8(L) 37.5 - 51.0 % [facility] MCV 89 79 - 97 fL [facility] MCH 27.7 26.6 - 33.0 pg [facility] MCHC 31.1(L) 31.5 - 35.7 g/dL [facility] RDW 15.7(H) 11.6 - 15.4 % [facility] Platelets 194 150 - 450 x10E3/uL [facility] Blood (Blood, Venous) 08/03/2024 2:41 PM EST 08/03/2024 Fracisco Dillard MD LAB BLOOD ORDERABLES Final Resul t Performing Organization Address City/[facility] Co de Phone Number [facility] [address] [place] [address] * (ABNORMAL) Iron Panel (Fe, TIBC, TSAT) (08/03/2024 2:41 PM EST) TIBC 181(L) 250 - 450 ug/dL [facility] UIBC 148 111 - 343 ug/dL [facility] Iron 33(L) 38 - 169 ug/dL [facility] Iron Saturation (TSat) 18 15 - 55 % [facility] Blood (Blood, Venous) 08/03/2024 2:41 PM EST 08/03/2024 us Fracisco Dillard MD LAB BLOOD ORDERABLES Final Resul t Performing Organization Address City/[facility]/ZIP Co de Phone Number [facility] [address] [place] [address] * Ferritin (08/03/2024 2:41 PM EST) Ferritin 364 30 - 400 ng/mL [facility] Blood (Blood, Venous) 08/03/2024 2:41 PM EST 08/03/2024 Fracisco Dillard MD LAB BLOOD ORDERABLES Final Resul t [facility] [address] [place] [address] * (ABNORMAL) Renal funtion panel (08/03/2024 2:41 PM EST) Glucose 102(H) 70 - 99 mg/dL [facility] BUN 32(H) 8 - 27 mg/dL [facility] Creatinine 4.16(H) 0.76 - 1.27 mg/dL [facility] eGFR CKD-EPI CR 2020 15(L) >59 mL/min/1.7 3 [facility] BUN/Creatinine Ratio 8(L) 10 - 24 [facility] Sodium 139 134 - 144 mmol/L [facility] Potassium 5.0 3.5 - 5.2 mmol/L [facility] Chloride 109(H) 96 - 106 mmol/L [facility] Bicarbonate (CO2) 20 20 - 29 mmol/L [facility] Calcium 8.0(L) 8.6 - 10.2 mg/dL [facility] Albumin 2.9(L) 3.9 - 4.9 g/dL [facility] Phosphorus 4.4(H) 2.8 - 4.1 mg/dL [facility] Blood (Blood, Venous) 08/03/2024 2:41 PM EST 08/03/2024 us Fracisco Dillard MD LAB BLOOD ORDERABLES Final Resul t [facility] [address] [place] [address] documented in this encounter Visit Diagnoses Diagnosis Stage 3 chronic kidney disease, not otherwise specified (HCC)- Primary Hypertension Diabetes mellitus, not otherwise specified (HCC) Nephrotic range proteinuria Anemia in chronic kidney disease documented in this encounter Care Teams Photography Intern Relationship Specialty Start Date End Date Chris Boucher MD [address] [place] [id number] PCP - General Internal Medicine 08/03/24 documented as of this encounter
--- OUTSIDE RECORDS SUMMARY | 2024-08-07 13:37 | XMS_ITS | Data Portability ---
Author Organization [facility] Address [address] [place] [address] Assessment No assessment recorded. Plan of Treatment Reminders Order Date Submit Date Provider Last Modified By Organization Details Last Modified Time Details Appointments None record ed. Lab None record ed. Referral None record ed. Procedures None record ed. Surgeries None record ed. Imaging None record ed. Medication Orders None record ed. Patient TargetsNo targets recorded. Patient InstructionsNo instructions recorded. Reason for Referral None Reported. Procedures Surgical History Date Name Laterality Status Provider Name and Address Organization Details Recorded Time OC-UDS Send Out Template DOT completed DO Torres [facility] 06/08/2022 11:09:39 Imaging Results None recorded. Procedure Notes None recorded. Medical Equipment None Reported. Medications Name Sig Start Date Stop Date Status Note LastModified by Organization Details LastModified Time lisinopril 20 mg tablet TAKE 1 TABLET BY MOUTH DAILY active Not Available Not Available No t Available carvedilol 3.125 mg tablet TAKE 1 TABLET BY MOUTH TWICE DAILY WITH MEALS active Not Available Not Available No t Available metformin 1,000 mg tablet TAKE 1 TABLET BY MOUTH TWICE DAILY WITH MEALS active Not Available Not Available No t Available lisinopril 10 mg tablet TAKE 1 TABLET BY MOUTH DAILY active Not Available Not Available No t Available Vitals None Recorded Social History None recorded. Functional Status None recorded. Mental Status None recorded. Family History Nothing Reported. Medical History No medical history recorded. Past Encounters Encounter ID Performer Location Encounter Start Date Encounter Closed Date Diagnosis/Indication Diagnosis SNOMED-CT Code Diagnosis ICD10 Code Diagnosis Note [id number] [place] [address] 11/28/2021 16:43:51 11/28/2021 18:50:06 [id number] [place] [address] 04/02/2018 15:05:18 04/02/2018 15:37:34 [id number] SAMUEL MARQUEZ MD [address] [place] [address] 06/08/2022 08:32:26 06/08/2022 14:21:11 History and physical examination, pre-employment [id number] Z02.1 Documentat ion for this visit can be found on the electronic DOT form or scanned copy Health Concerns Section Related Observation LastModified by Organization Detai ls LastModified Time None Recorded Concern Status LastModified by Organization Details LastModified Time None Recorded Advance Directives Directive None Recorded Payers Encounter Date Sequence Insurance Name Policy Number Policy Quinteros Covered Member ID Quinteros Member ID Guarantor Name 06/08/2022 OC-BINU Lucio [id number] Dillon Lucio
--- OUTSIDE RECORDS SUMMARY | 2024-08-07 13:37 | XMS_ITS | Clinical Summary ---
Author Organization [address] Address [address] [place] [phone] Phone Care Team Providers Care Advertising Operations Coordinator Name Role Phone Chris Boucher MD Primary Care Provider [phone] Allergies No known active allergies Medications loratadine (CLARITIN) 10 mg tablet TAKE 1 TABLET BY MOUTH EVERY DAY 90 tablet 04/22/20 24 Active insulin glargine (Lantus Solostar U-100 Insulin) 100 unit/mL (3 mL) injection pen Use 6 units at bedtime, increase by 2 units every 3 days with a max dose of 10 units if fasting sugars remain over 130 03/17/20 24 Active ergocalciferol (VITAMIN D-2) 1,250 mcg (50,000 unit) capsule Take 1 Capsule by mouth once a week. 01/30/20 24 Active sertraline (ZOLOFT) 100 mg tablet Take 1 tablet (100 mg total) by mouth 1 (one) time each day. 01/28/20 24 Active sulfaSALAzine (AZULFIDINE) 500 mg tablet 12/02/19 24 Active predniSONE (DELTASONE) 10 mg tablet Take 1 tablet (10 mg total) by mouth 1 (one) time each day. 10/11/19 24 Active leflunomide (ARAVA) 20 mg tablet 12/02/19 24 Active pen needle, diabetic (PEN NEEDLE MISC) Use once daily with insulin pen 01/06/20 24 Active sertraline (ZOLOFT) 50 mg tablet Take 1 Tablet by mouth at bedtime. 01/06/20 Active furosemide (LASIX) 20 mg tablet Take 1 tablet (20 mg total) by mouth 1 (one) time each day. 08/07/19 Active carvediloL (COREG) 25 mg tablet Take 1 tablet (25 mg total) by mouth 2 (two) times a day. 08/07/19 Active spironolactone (ALDACTONE) 25 mg tablet Take 1 tablet (25 mg total) by mouth 1 (one) time each day. 08/07/19 Active diclofenac (VOLTAREN) 1 % topical gel Apply 1 g topically 3 times daily as needed (pain). 05/03/20 Active lisinopril (PRINIVIL,ZESTR IL) 40 mg tablet Take 1 Tablet by mouth daily for 180 days. 02/20/20 Active ipratropium-alb uteroL (DUONEB) 0.5-2.5 mg/3 mL nebulizer solution Inhale 3 mL into the lungs 4 times daily. 08/07/19 Active glucose blood test strip Use to test blood sugar twice daily 04/17/20 Active FREESTYLE LANCETS MISC Use to test bloodsugar twice daily 07/04/19 Active blood-glucose meter kit 1 Each by Does not apply route as needed for Other for up to 360 days. 07/04/19 Active pen needle, diabetic 32 gauge x 5/32 needle 1 Device by Does not apply route daily. 08/05/19 Active doxazosin (CARDURA) 2 mg tablet Take 1 tablet (2 mg total) by mouth at bedtime. 30 each 5 04/28/20 24 025 Active Additional Information Patient not taking.Reported on 05/29/2024 rosuvastatin (CRESTOR) 40 mg tablet Take 1 tablet (40 mg total) by mouth 1 (one) time each day. 30 each 5 05/29/20 24 025 Active Farxiga 5 mg tablet TAKE 1 TABLET BY MOUTH EVERY DAY 90 tablet 2 07/28/19 Active dapagliflozin propanediol (FARXIGA) 5 mg tablet Take 5 mg by mouth daily. 01/07/20 24 Discontinued Active Problems Problem Noted Date Diagnosed Date CHF (congestive heart failure) 08/23/2023 COVID-19 09/28/2022 Low testosterone 03/16/2019 Vitamin deficiency 03/16/2019 Obstructive sleep apnea 06/21/2016 Essential hypertension 06/06/2015 DDD (degenerative disc disease), cervical 2014 Insomnia 02/05/2014 Alcohol dependence 08/21/2012 Hyperlipidemia 08/09/2011 Microalbuminuria 08/09/2011 Type II diabetes mellitus with nephropathy 08/09 Asthma 07/18/2011 Major depression 07/18/2011 Obesity (BMI 30.0-34.9) 07/18/2011 Encounters Date Type Department Care Team Description 05/29/2024 3:00 PM EST Office Visit Adult Medicine [address] [phone] Chris Boucher MD Type II diabetes mellitus with nephropathy ([facility]) (Primary Dx); Encounter for long-term (current) use of medications; Essential hypertension; Pure hypercholesterolemia; Diabetic retinopathy associated with type 2 diabetes mellitus, macular edema presence unspecified, unspecified laterality, unspecified retinopathy severity ([facility]); Proteinuria, unspecified type; CKD (chronic kidney disease) stage 4, GFR 15-29 ml/min ([facility]) from Last 3 Months Immunizations Name Administration Dates Next Due Influenza Quadravalent, MDCK , 0.5ml, preservative free (Flucelvax) 6mo and older 03/28/2022,04/17/2021 Influenza Quadravalent, MDCK , 0.5ml, with preservative (Flucelvax) 6mo and older 03/27/2017 Influenza trivalent, with pr eservative (Fluzone; Afluria) 6mo and older 03/21/2016,03/03/2013 Moderna SARS-CoV-2 COVID-19, mRNA, LNP-S, preservative free 12/31/2020,11/23/2020 Pneumococcal polysaccharide 23 valent (Pneumovax 23) 2yo and older 02/11/2014 Td Tetanus diptheria (Tdvax) 7yo and older 03/28 Tdap Tetanus diptheria acell ular pertussis (Boostrix; Adacel) 7yo and older 07/26/2011 Surgical History Surgery Date Site/Laterality Comments COLONOSCOPY 10/06/2013 PROCEDURE: HISTORICAL COLONOSCOPY; COMMENT: tics; repeat in ten yrs Medical History Medical History Date Comments Type II diabetes mellitus, uncontrolled 07/18/2011 DX:Type II diabetes mellitus , uncontrolled Asthma 07/18/2011 DX:Asthma Depression 07/18/2011 DX:Depression Obesity 07/18/2011 DX:Obesity Unspecified essential hypertension DX:Unspecified essential hypertension Essential hypertension 06/06/2015 DX:Essent ial hypertension CHF (congestive heart failur e) ([facility]) 08/23/2023 DX:CHF (congestive heart zach lure) ([facility]) Family History Medical History Relation Name Comments Stroke Maternal Grandmother at 70 Diabetes Other parents, mat gr andmother and pat grandfather Heart attack Paternal Grandfather in his late 60s Blindness Neg Hx Cataracts Neg Hx Glaucoma Neg Hx Macular degeneration Neg Hx Strabismus Neg Hx Relation Name Status Comments Maternal Grandmother Other Paternal Grandfather Social History Tobacco Use Types Packs/Day Years Used Date Smoking Tobacco: Former Cigarettes 0.5 18.1 0 06/17/1992 - 08/01/2010 Smokeless Tobacco: Former Tobacco Cessation:Counseling Given: Not Answered Alcohol Use Standard Drinks/Week Comments Yes 0 (1 standard drink = 0.6 oz pur e alcohol) Sex and Gender Information Value Date Recorded Sex Assigned at Not on file Legal Sex Male 4:53 AM EST Gender Identity Not on file Sexual Orientation Not on file Obstetrics History Last Filed Vital Signs Vital Sign Reading Time Taken Comments Blood Pressure 178/100 05/29/2024 3:04 PM EST Pulse 80 05/29/2024 3:04 PM EST Temperature 36.1 ??C (96.9 ??F) 05/29/2024 3:04 PM ES T Respiratory Rate 12 05/29/2024 3:04 PM EST Oxygen Saturation - - Inhaled Oxygen Concentration - - Weight 94.8 kg (209 lb) 05/29/2024 3:04 PM EST Height 170.2 cm (5' 7 ) 05/29/2024 3:04 PM EST Body Mass Index 32.73 05/29/2024 3:04 PM EST Plan of Treatment Health Maintenance Due Date Last Done Comments Diabetes: Annual Foot Exam 1973 Zoster Vaccines (1 of 2) 2013 Pneumococcal Vaccine: 50+ Years (2 of 2 - PCV) 02/11/2015 02/11/2014 Pneumococcal Vaccine: Pediatrics (0 to 5 Years) and At-Risk Patients (6 to 64 Years) (2 of 2 - PCV) 02/11/2015 02/11/2014 Colorectal Cancer Screening: Colonoscopy 05/26/2022 HIV Screening 05/26/2022 Social Influencers of Health Screening 05/26/2022 RSV Immunization Patients 60+ Years Old (1 - Risk 60-74 years 1-dose series) 2023 COVID-19 Vaccine ( season) 2024 05/28/2022, 08/18/2021, 12/31/2020, Additional history exists Influenza Vaccine (#1) 2024 , 03/28/2022, 04/17/2021, Additional history exists Diabetes: Blood Sugar Control Test (HGBA1C) 07/30/2024 01/28/2024, 01/28/2024 Diabetes: Annual Retina Eye Exam 12/09/2024 12/10/2023 Depression Screening 01/27/2025 01/28/2024 Diabetes: Annual Urine Albumin-Creatinine Ratio (uACR) 01/27/2025 01/28/2024 Diabetes: Annual GFR (Glomerular Filtration Rate) 04/28/2025 04/28/2024, 01/28/2024, 01/28/2024, Additional history exists Hypertension/CHF/CAD Annual BMP Blood Test 04/28/2025 04/28/2024, 01/28/2024, 01/28/2024, Additional history exists Cholesterol Screening (Lipid Panel) 01/27/2029 01/28/2024, 01/28/2024 DTaP,Tdap,and Td Vaccines (3 - Td or Tdap) 03/28/2032 03/28/2022, 07/26/2011 Hepatitis C Screening Completed 02/19/2023 HIB Vaccines Aged Out No longer eligi ble based on patient's age to complete this topic HPV Vaccines Aged Out No longer eligi ble based on patient's age to complete this topic Hepatitis A Vaccines Aged Out No long er eligible based on patient's age to complete this topic Hepatitis B Vaccines Aged Out No long er eligible based on patient's age to complete this topic IPV Vaccines Aged Out No longer eligi ble based on patient's age to complete this topic MMR Vaccines Aged Out No longer eligi ble based on patient's age to complete this topic Meningococcal ACWY Vaccine Aged Out N o longer eligible based on patient's age to complete this topic Meningococcal B Vacine Aged Out No lo nger eligible based on patient's age to complete this topic RSV Immunization Patients Under 20 months Aged Out No longer eligible based on patient's age to complete this topic Varicella Vaccines Aged Out No longer eligible based on patient's age to complete this topic Procedures Procedure Name Priority Date/Time Associated Diagnosis Comments BASIC METABOLIC PANEL Routine 04/28/2024 12:09 PM EST Stage 4 chronic kidney disease (CMS/HCC) DEPRESSION SCREENING Routine 01/28/2024 URINE ALBUMIN CREATININE RATIO Routine 01/28/2024 HEMOGLOBIN A1C Routine 01/28/2024 LIPID PANEL Routine 01/28/2024 DIABETES EYE EXAM Routine 12/10/2023 HEPATITIS C SCREENING Routine 02/19/2023 from Last 3 Months or Most Recently Relevant to Health Maintenance Results * (ABNORMAL) Basic metabolic panel (04/28/2024 12:09 PM EST) Sodium 141 133 - 145 mmol/L LAB CHEMISTRY METHOD 04/28/2024 4:14 PM [facility] Potassium 4.4 3.5 - 5.5 mmol/L LAB CHEMISTRY METHOD 04/28/2024 4:14 PM [facility] Chloride 113(H) 96 - 110 mmol/L LAB CHEMISTRY METHOD 04/28/2024 4:14 PM [facility] CO2 22 21 - 32 mmol/L LAB CHEMISTRY METHOD 04/28/2024 4:14 PM [facility] Anion Gap 6 3 - 11 LAB CHEMISTRY METHOD 04/28/2024 4:14 PM [facility] Glucose 103(H) 70 - 100 mg/dL LAB CHEMISTRY METHOD 04/28/2024 4:14 PM [facility] BUN 35(H) 5 - 25 mg/dL LAB CHEMISTRY METHOD 04/28/2024 4:14 PM [facility] Creatinine 3.08(H) 0.70 - 1.30 mg/dL LAB CHEMISTRY METHOD 04/28/2024 4:14 PM [facility] eGFR 22(L) >=60 mL/min/1. 73m2 LAB CHEMISTRY METHOD 04/28/2024 4:14 PM [facility] Comment:Calculation based on the??Chronic Kidney Disease Epidemiology Collaboration (CKD-EPI) equation refit??without adjustment for race. BUN/Creatinine Ratio 11.4 LAB CHEMISTRY METHOD 04/28/2024 4:14 PM [facility] Calcium 8.5 8.5 - 10.5 mg/dL LAB CHEMISTRY METHOD 04/28/2024 4:14 PM [facility] Blood Venous blood specimen / Unknown Venipuncture / Unknown 04/28/2024 12:09 PM EST 04/28/2024 12:09 PM EST Fracisco Dillard MD LAB BLOOD ORDERABLES Final Res ult [facility] [address] [place] [address], * Urine Albumin Creatinine Ratio (01/28/2024) Urine Albumin Creatinine Ratio abstracted Historical Provider HEALTH MAINTENANCE Final Result * Depression Screening (01/28/2024) Pathologist [facility] Depression Screening abstracted Historical Provider HEALTH MAINTENANCE Final Result * (ABNORMAL) Hemoglobin A1c (01/28/2024) Pathologist [facility] Hemoglobin A1C 7.6(A) <=6.5 % Blood Venous blood specimen / Unknown Result [facility] Provider LAB BLOOD ORDERABLES Kayla l Result * (ABNORMAL) Lipid panel (01/28/2024) [facility] LDL/HDL Ratio 7(A) 0 - 4 Triglycerides 232(A) 0 - 150 mg/dL Cholesterol 430(A) 0 - 200 mg/dL HDL 59 >=40 mg/dL LDL Cholesterol 325(A) 0 - 100 mg/dL Blood Venous blood specimen / Unknown Result [facility] Provider LAB BLOOD ORDERABLES Kayla l Result * Diabetes Eye Exam (12/10/2023) [facility] Diabetes: Annual Retina Eye Exam abstracted Result [facility] Provider HEALTH MAINTENANCE Final Result * Hepatitis C Screening (02/19/2023) [facility] Hepatitis C Screening abstracted Result [facility] Provider HEALTH MAINTENANCE Final Result from Last 3 Months or Most Recently Relevant to Health Maintenance Insurance [facility] [employer] Care Teams Advertising Operations Coordinator Relationship Specialty Start Date End Date Chris Boucher MD [address] [place] [phone] PCP - General Internal Medicine 09/06/14
--- OUTSIDE RECORDS SUMMARY | 2024-08-07 13:37 | XMS_ITS | Clinical Summary ---
Author Organization [facility] Address [address] [phone] Phone Care Team Providers Care Bakery Manager Name Role Phone Chris Boucher MD Primary Care Provider Allergies No known active allergies Medications zolpidem (AMBIEN) 10 MG tablet Take 10 mg by mouth 1 (one) time each day in the evening 4 Active spironolactone (ALDACTONE) 25 MG tablet Take 25 mg by mouth in the morning. 4 Active sertraline (ZOLOFT) 100 MG tablet Take 100 mg by mouth in the morning. 4 Active rosuvastatin (CRESTOR) 40 MG tablet Take 40 mg by mouth in the morning. 4 11/26/19 25 Active predniSONE (DELTASONE) 10 MG tablet Take 1 tablet by mouth in the morning. 4 Active NIFEdipine CC (ADALAT CC) 90 MG 24 hr tablet Take 90 mg by mouth 4 Active loratadine (CLARITIN) 10 MG tablet Take 10 mg by mouth in the morning. 4 Active lisinopril 10 MG tablet Take 1 tablet by mouth 1 (one) time each day Active leflunomide (ARAVA) 20 MG tablet 4 Active Insulin Pen Needle (Pen Purling) 32G X 4 MM misc 1 Device by Does not apply route daily. 9 Active hydrALAZINE (APRESOLINE) 10 MG tablet Take 20 mg by mouth in the morning and 20 mg at noon and 20 mg in the evening. 5 Active metFORMIN (GLUCOPHAGE) 1000 MG tablet Take 1 tablet by mouth in the morning and 1 tablet in the evening. Take with meals. 08/03/19 25 Discontinued Active Problems Problem Noted Date Diagnosed Date Congestive heart failure 08/23/2023 COVID-19 09/28/2022 Vitamin deficiency 03/16/2019 Obstructive sleep apnea 06/21/2016 Essential hypertension 06/06/2015 Degeneration of cervical intervertebral disc Insomnia 02/05/2014 Alcohol dependence 08/21/2012 Type 2 diabetes mellitus 08/09/2011 Microalbuminuria 08/09/2011 Hyperlipidemia 08/09/2011 Obesity, class 1 07/18/2011 Major depressive disorder 07/18/2011 Asthma 07/18/2011 Encounters Date Type Department Care Team Description 08/03/2024 2:15 PM EST Office [facility] [address] [phone] Fracisco Dillard MD Stage 3 chronic kidney disease, not otherwise specified (HCC) (Primary Dx); Hypertension; Diabetes mellitus, not otherwise specified (HCC); Nephrotic range proteinuria; Anemia in chronic kidney disease from Last 3 Months Social History Tobacco Use Types Packs/Day Years Used Date Smoking Tobacco: Never Assessed Sex and Gender Information Value Date Recorded Sex Assigned at Not on file Legal Sex Male 4:42 PM EST Gender Identity Not on file Sexual Orientation Not on file Last Filed Vital Signs Vital Sign Reading Time Taken Comments Blood Pressure 140/82 08/03/2024 2:11 PM EST Pulse 68 08/03/2024 2:11 PM EST Temperature - - Respiratory Rate - - Oxygen Saturation - - Inhaled Oxygen Concentration - - Weight 89.8 kg (198 lb) 08/03/2024 2:11 PM EST Height - - Body Mass Index - - Plan of Treatment Upcoming Encounters Date Type Department Care Team (Late st Contact Info) Description 10/05/2024 3:30 PM EDT Office Visit [facility] [address] [phone] Fracisco Dillard MD [address] [phone] Health Maintenance Due Date Last Done Comments Colorectal Cancer Screening: Annual FOBT 02/29/2012 Colorectal Cancer Screening: Colonoscopy 02/29/2012 Colorectal Cancer Screening: Sigmoidoscopy 02/29/2012 Pneumococcal Vaccine: Pediatrics (0 to 5 Years) and At-Risk Patients (6 to 64 Years) (2 of 2 - PCV) 02/11/2015 02/11/2014 Influenza Vaccine (#1) 2024 2, 04/17/2021, 03/27/2017, Additional history exists Diabetes: Hemoglobin A1C 04/29/2024 01/28/2024 Diabetes: Ophthalmology Exam 04/29/2024, 03/01/2015, 05/21/2013, Additional history exists Diabetes: Pedal Pulse Checked 04/29/2024 Diabetes: Sensory Foot Exam 04/29/2024 Diabetes: Visual Foot Exam 04/29/2024 Hepatitis B Vaccine Aged Out No longe r eligible based on patient's age to complete this topic Procedures Procedure Name Priority Date/Time Associated Diagnosis Comments CBC Routine 08/03/2024 2:41 PM EST Stage 3 chronic kidney disease, not otherwise specified (HCC) IRON PANEL (FE, TIBC, TSAT) Routine 08/03/2024 2:41 PM EST Stage 3 chronic kidney disease, not otherwise specified (HCC) FERRITIN Routine 08/03/2024 2:41 PM EST Stage 3 chronic kidney disease, not otherwise specified (HCC) RENAL FUNCTION PANEL Routine 08/03/2024 2:41 PM EST Stage 3 chronic kidney disease, not otherwise specified (HCC) from Last 3 Months Results * (ABNORMAL) Iron Panel (Fe, TIBC, TSAT) (08/03/2024 2:41 PM EST) TIBC 181(L) 250 - 450 ug/dL [facility] UIBC 148 111 - 343 ug/dL [facility] Iron 33(L) 38 - 169 ug/dL [facility] Iron Saturation (TSat) 18 15 - 55 % [facility] Blood (Blood, Venous) 08/03/2024 2:41 PM EST 08/03/2024 Fracisco Dillard MD LAB BLOOD ORDERABLES Final Resul t [facility] [address] [place] [address] * (ABNORMAL) CBC without diff (08/03/2024 2:41 PM EST) WBC 4.9 3.4 - 10.8 x10E3/uL [facility] RBC 3.57(L) 4.14 - 5.80 x10E6/uL [facility] Hemoglobin 9.9(L) 13.0 - 17.7 g/dL [facility] Hematocrit 31.8(L) 37.5 - 51.0 % [facility] MCV 89 79 - 97 fL [facility] MCH 27.7 26.6 - 33.0 pg [facility] MCHC 31.1(L) 31.5 - 35.7 g/dL [facility] RDW 15.7(H) 11.6 - 15.4 % [facility] Platelets 194 150 - 450 x10E3/uL [facility] Blood (Blood, Venous) 08/03/2024 2:41 PM EST 08/03/2024 Fracisco Dillard MD LAB BLOOD ORDERABLES Final Resul t [facility] [address] [place] [address] * Ferritin (08/03/2024 2:41 PM EST) Ferritin 364 30 - 400 ng/mL [facility] Blood (Blood, Venous) 08/03/2024 2:41 PM EST 08/03/2024 Fracisco Dillard MD LAB BLOOD ORDERABLES Final Resul t [facility] [address] [place] [address] * (ABNORMAL) Renal funtion panel (08/03/2024 2:41 PM EST) Glucose 102(H) 70 - 99 mg/dL [facility] BUN 32(H) 8 - 27 mg/dL [facility] Creatinine 4.16(H) 0.76 - 1.27 mg/dL [facility] eGFR CKD-EPI CR 2020 15(L) >59 mL/min/1.7 3 [facility] BUN/Creatinine Ratio 8(L) 10 - 24 [facility] Sodium 139 134 - 144 mmol/L [facility] Potassium 5.0 3.5 - 5.2 mmol/L [facility] Chloride 109(H) 96 - 106 mmol/L [facility] Bicarbonate (CO2) 20 20 - 29 mmol/L [facility] Calcium 8.0(L) 8.6 - 10.2 mg/dL [facility] Albumin 2.9(L) 3.9 - 4.9 g/dL [facility] Phosphorus 4.4(H) 2.8 - 4.1 mg/dL [facility] Blood (Blood, Venous) 08/03/2024 2:41 PM EST 08/03/2024 us Fracisco Dillard MD LAB BLOOD ORDERABLES Final Resul t [facility] [address] [place] [address] from Last 3 Months Insurance Care Teams Bakery Manager Relationship Specialty Start Date End Date Chris Boucher MD [address] [place] [phone] PCP - General Internal Medicine 08/03/24
== END 2024-08-07 14:10 | disposition home or self-care (01) ==
PROVIDERS: PCP Internal Medicine
DX: I10 Essential (primary) hypertension (principal); I50.9 Heart failure, unspecified; E11.9 Type 2 diabetes mellitus without complications
CPT/HCPCS: 93010; 99214

== ENCOUNTER → 2024-08-07 13:10 | Outpatient (BNVA) | payer OTHER, SELFPAY | PROVIDERS: PCP Internal Medicine | DX: I11.0 Hypertensive heart disease with heart failure (principal); I50.9 Heart failure, unspecified; E11.9 Type 2 diabetes mellitus without complications; R94.31 Abnormal electrocardiogram [ECG] [EKG] | CPT/HCPCS: 93005; 99212 ==

== ENCOUNTER → 2024-08-21 10:39 | Outpatient (REF) | payer OTHER, SELFPAY ==
--- NOTE | 2024-08-21 10:43 | CA_ITS ---
Transthoracic Echocardiogram Patient (Last, First, Middle): Dillon Lucio, Gender: Male Date of : 1965 Age: 59 Procedure Date: 08/21/2024 Procedure Type: Transthoracic Echocardiogram Location: OP Height: 172. cm Weight: 81.65 kg BSA: 1.95 m2 Heart Rate: 61 bpm BP: 170 / 90 mmHg Non Licensed Nuclear Equipment Operator: CRIS Juarez MD: Chris Espinosa NP Director Of Sustainability: Lewis Willett MD Symptoms: I50.9 - Heart failure, unspecified Study Quality: Good ECG Rhythm: Sinus Conclusions: - 1. Mildly reduced LV ejection fraction 45-50% with moderate left ventricular hypertrophy with impaired relaxation filling pattern 2. Mildly dilated left atrium 3. Normal cardiac valvular Dopplers 4. Upper limits of normal ascending aortic size 5. No gross pericardial effusion Findings Left Ventricle Normal left ventricular cavity size. There is moderately increased left ventricular wall thickness. The left ventricular systolic function is normal. The visually estimated ejection fraction is between 45-50%. Spectral Doppler is indicative of an impaired relaxation filling pattern. E/E prime ratio is between 8 and 15 consistent with indeterminate filling pressures. Peak GLS is -13.1%, moderately reduced. Right Ventricle Normal right ventricular cavity size and systolic function. Atria The left atrium is mildly dilated. There is no evidence of interatrial shunt. The right atrium is normal in size. Aortic Valve Normal aortic valve structure and function. There is no aortic valve stenosis. There is no aortic valve regurgitation. Mitral Valve There is mild anterior mitral leaflet thickening. There is trace mitral valve regurgitation. There is no mitral valve stenosis. Pulmonic Valve The pulmonic valve is likely normal. Tricuspid Valve Likely normal tricuspid valve structure and function. Tricuspid regurgitation envelope is inadequate for calculation of right ventricular systolic pressure. Normal right atrial pressure. Great Vessels The pulmonary artery was not well visualized. There is mild dilatation of the sinuses of Valsalva. Venous The inferior vena cava is normal in size and collapses greater than 50% with inspiration. Pericardium/Pleural There is no evidence of pericardial effusion. Prior Study Comparison Changes noted compared to prior study dated: 08/06/2023. LV systolic function is marginally reduced Measurements 2D Linear Measurements IVSd: 1.34 0.6-0.9/0.6-1.0 cm LVIDd: 5.15 3.9-5.3/4.2-5.9 cm LVIDd Index: 2.64 2.4-3.2/2.2-3.1 cm/m2 LVIDs: 3.99 2.0-3.6 cm LVPWd: 1.43 0.7-1.1 cm LA Diam: 4.90 2.7-3.8/3.0-4.0 cm LAIDs Index: 2.51 1.5-2.3 cm/m2 LV Mass: 374.61 67-162/88-224 g LV Mass Index: 192.11 43-95/49-115 g/m2 LVOT Diam: 2.30 3.0+(-)1.3 cm 2D Systolic Function EF 4C: 49.00 >55% EF 2C: 49.80 >55% EF BiP: 49.60 >55% Mitral Valve MV Pk E: 0.43 MV PK A: 0.85 MV Decel Time: 345.00 E/A: 0.50 E'Lateral: 4.68 E'Medial: 3.26 E/E' Med: 13.30 E/E' Lat: 9.30 PHT: 101.00 MVA PHT: 2.18 Decel Ponce: 1.25 Aortic Valve AoV Pk Mason: 1.32 AoV Mn Mason: 1.01 AoV VTI: 0.32 AoV Pk Grad: 7.00 Aov Mn Grad: 4.00 MYRTLE Cont.VTI: 2.30 LVOT LVOT Pk Mason: 0.76 LVOT Mn Mason: 0.57 LVOT VTI: 0.18 LVOT Pk Grad: 2.00 LVOT Mn Grad: 1.00 LVOT Diam: 2.30 LVOT Area: 4.15 Diastolic Function MV Pk E: 0.43 MV Pk A: 0.85 E/A: 0.50 E'Medial: 3.26 E/E' Med: 13.30 E' Laterial: 4.68 E/E' Lat: 9.30 Right Ventricle TAPSE (mm): 21.70 TVS' Mason: 12.00 Tricuspid Valve RA Press: 3.00 Great Vessels Aorta Sinus of Valsalva: 3.90 2.0-3.5 cm Ao Asc: 3.60 2.1-3.4 cm Ao Arch: 3.70 Pulmonary Valve PV Pk Mason: 0.92 Peak PV Grad: 3.00 Updated in Other Vendor System with Status of Final Lewis Willett MD electronically signed on 08/22/2024 1:17:01 PM with status of Final
--- OUTSIDE RECORDS SUMMARY | 2024-08-21 12:03 | XMS_ITS | Data Portability ---
Author Organization [facility] Address [address] [place] [address] Assessment No assessment recorded. Plan of Treatment [...] Send Out Template DOT completed DO Torres [facility] [employer] 06/08/2022 11:09:39 Imaging Results None recorded. Procedure [...] SNOMED-CT Code Diagnosis ICD10 Code Diagnosis Note [id number] [address] [place] [address] 11/28/2021 16:43:51 11/28/2021 18:50:06 [id number] [address] [place] [address] 04/02/2018 15:05:18 04/02/2018 15:37:34 [id number] SAMUEL MARQUEZ MD [address] [facility] [place] [address] 06/08/2022 08:32:26 06/08/2022 14:21:11 History and physical examination, pre-employment [id number] Z02.1 Documentat ion for this visit can [...] ID Quinteros Member ID Guarantor Name 06/08/2022 OC-ESCREEN Dillon Lucio [id number] Dillon Lucio
--- OUTSIDE RECORDS SUMMARY | 2024-08-21 12:03 | XMS_ITS | Clinical Summary ---
Author Organization [address] Address [address] [place] [address] Phone Care Team Providers Care Office Rental Clerk Name Role Phone Chris Boucher MD Primary Care Provider [phone] Allergies No known active allergies Medications loratadine [...] 3:00 PM EST Office Visit Adult Medicine [address] [phone] Chris Boucher MD Type II diabetes mellitus with nephropathy ([facility]) (Primary Dx); Encounter for long-term (current) use of medications; Essential hypertension; Pure hypercholesterolemia; Diabetic retinopathy associated with type 2 diabetes mellitus, macular edema presence unspecified, unspecified laterality, unspecified retinopathy severity ([facility]); Proteinuria, unspecified type; CKD (chronic kidney disease) stage 4, GFR 15-29 ml/min ([facility]) from Last 3 Months Immunizations Name Administration [...] ial hypertension CHF (congestive heart failur e) ([facility]) 08/23/2023 DX:CHF (congestive heart zach lure) ([facility]) Family History Medical History Relation Name Comments [...] mmol/L LAB CHEMISTRY METHOD 04/28/2024 4:14 PM [facility] Potassium 4.4 3.5 - 5.5 mmol/L LAB CHEMISTRY METHOD 04/28/2024 4:14 PM [facility] Chloride 113(H) 96 - 110 mmol/L LAB CHEMISTRY METHOD 04/28/2024 4:14 PM [facility] CO2 22 21 - 32 mmol/L LAB CHEMISTRY METHOD 04/28/2024 4:14 PM [facility] Anion Gap 6 3 - 11 LAB CHEMISTRY METHOD 04/28/2024 4:14 PM [facility] Glucose 103(H) 70 - 100 mg/dL LAB CHEMISTRY METHOD 04/28/2024 4:14 PM [facility] BUN 35(H) 5 - 25 mg/dL LAB CHEMISTRY METHOD 04/28/2024 4:14 PM [facility] Creatinine 3.08(H) 0.70 - 1.30 mg/dL LAB CHEMISTRY METHOD 04/28/2024 4:14 PM [facility] eGFR 22(L) >=60 mL/min/1. 73m2 LAB CHEMISTRY METHOD 04/28/2024 4:14 PM [facility] Comment:Calculation based on the??Chronic Kidney Disease Epidemiology Collaboration (CKD-EPI) equation refit??without adjustment for race. BUN/Creatinine Ratio 11.4 LAB CHEMISTRY METHOD 04/28/2024 4:14 PM [facility] Calcium 8.5 8.5 - 10.5 mg/dL LAB CHEMISTRY METHOD 04/28/2024 4:14 PM [facility] Blood Venous blood specimen / Unknown Venipuncture / Unknown 04/28/2024 12:09 PM EST 04/28/2024 12:09 PM EST Fracisco Dillard MD LAB BLOOD ORDERABLES Final Res ult [facility] [address] [place] [address], * Urine Albumin Creatinine Ratio (01/28/2024) Urine Albumin Creatinine Ratio abstracted Historical Provider HEALTH MAINTENANCE Final Result * Depression Screening (01/28/2024) Pathologist [facility] Depression Screening abstracted Historical Provider HEALTH MAINTENANCE Final Result * (ABNORMAL) Hemoglobin A1c (01/28/2024) Pathologist [facility] Hemoglobin A1C 7.6(A) <=6.5 % Blood Venous blood specimen / Unknown Result [facility] Provider LAB BLOOD ORDERABLES Kayla l Result * (ABNORMAL) Lipid panel (01/28/2024) [facility] LDL/HDL Ratio 7(A) 0 - 4 Triglycerides 232(A) 0 - 150 mg/dL Cholesterol 430(A) 0 - 200 mg/dL HDL 59 >=40 mg/dL LDL Cholesterol 325(A) 0 - 100 mg/dL Blood Venous blood specimen / Unknown Result [facility] Provider LAB BLOOD ORDERABLES Kayla l Result * Diabetes Eye Exam (12/10/2023) [facility] Diabetes: Annual Retina Eye Exam abstracted Result [facility] Provider HEALTH MAINTENANCE Final Result * Hepatitis C Screening (02/19/2023) [facility] Hepatitis C Screening abstracted Result [facility] Provider HEALTH MAINTENANCE Final Result from Last 3 Months or Most Recently Relevant to Health Maintenance Insurance [facility] [employer] [facility] Care Teams Office Rental Clerk Relationship Specialty Start Date End Date Chris Boucher MD [address] [place] [id number] PCP - General Internal Medicine 09/06/14
--- OUTSIDE RECORDS SUMMARY | 2024-08-21 12:04 | XMS_ITS | Clinical Summary ---
Author Organization [facility] Address [address] [address] Phone Care Team Providers Care Vocational Nurse Lvn Name Role Phone Chris Boucher MD Primary Care Provider [phone] Allergies No known active allergies Medications zolpidem [...] tablet 4 Active Insulin Pen Needle (Pen [place]) 32G X 4 MM misc 1 Device [...] [facility] Visit [facility] [address] [phone] Fracisco Dillard MD Stage 3 chronic kidney [...] Office Visit [facility] [address] [phone] Fracisco Dillard MD [address] [phone] Health Maintenance Due Date Last Done Comments [...] TIBC 181(L) 250 - 450 ug/dL [facility] UIBC 148 111 - 343 ug/dL [facility] Iron 33(L) 38 - 169 ug/dL [facility] Iron Saturation (TSat) 18 15 - 55 % [facility] Blood (Blood, Venous) 08/03/2024 2:41 PM EST 08/03/2024 Fracisco Dillard MD LAB BLOOD ORDERABLES Final Resul t [facility] [address] [place] [address] * (ABNORMAL) CBC without diff (08/03/2024 2:41 PM EST) WBC 4.9 3.4 - 10.8 x10E3/uL [facility] RBC 3.57(L) 4.14 - 5.80 x10E6/uL [facility] Hemoglobin 9.9(L) 13.0 - 17.7 g/dL [facility] Hematocrit 31.8(L) 37.5 - 51.0 % [facility] MCV 89 79 - 97 fL [facility] MCH 27.7 26.6 - 33.0 pg [facility] MCHC 31.1(L) 31.5 - 35.7 g/dL [facility] RDW 15.7(H) 11.6 - 15.4 % [facility] Platelets 194 150 - 450 x10E3/uL [facility] Blood (Blood, Venous) 08/03/2024 2:41 PM EST 08/03/2024 Fracisco Dillard MD LAB BLOOD ORDERABLES Final Resul t [facility] [address] [place] [address] * Ferritin (08/03/2024 2:41 PM EST) Ferritin 364 30 - 400 ng/mL [facility] Blood (Blood, Venous) 08/03/2024 2:41 PM EST 08/03/2024 Fracisco Dillard MD LAB BLOOD ORDERABLES Final Resul t [facility] [address] [place] [address] * (ABNORMAL) Renal funtion panel (08/03/2024 2:41 PM EST) Glucose 102(H) 70 - 99 mg/dL [facility] BUN 32(H) 8 - 27 mg/dL [facility] Creatinine 4.16(H) 0.76 - 1.27 mg/dL [facility] eGFR CKD-EPI CR 2020 15(L) >59 mL/min/1.7 3 [facility] BUN/Creatinine Ratio 8(L) 10 - 24 [facility] Sodium 139 134 - 144 mmol/L [facility] Potassium 5.0 3.5 - 5.2 mmol/L [facility] Chloride 109(H) 96 - 106 mmol/L [facility] Bicarbonate (CO2) 20 20 - 29 mmol/L [facility] Calcium 8.0(L) 8.6 - 10.2 mg/dL [facility] Albumin 2.9(L) 3.9 - 4.9 g/dL [facility] Phosphorus 4.4(H) 2.8 - 4.1 mg/dL [facility] Blood (Blood, Venous) 08/03/2024 2:41 PM EST 08/03/2024 us Fracisco Dillard MD LAB BLOOD ORDERABLES Final Resul t [facility] [address] [place] [address] from Last 3 Months Insurance Care Teams Vocational Nurse Lvn Relationship Specialty Start Date End Date Chris Boucher MD [address] [place] [phone] PCP - General Internal Medicine 08/03/24
--- OUTSIDE RECORDS SUMMARY | 2024-08-21 12:04 | XMS_ITS | Encounter Summary ---
Author Organization [facility] Address [address] [place] [phone] Phone Care Team Providers Care Intervention Teacher Name Role Phone Chris Boucher MD Primary Care Provider [phone] Reason for Visit * Reason Comments Chronic Kidney Disease Encounter Details Date Type Department Care Team (Late st Contact Info) Description 08/03/2024 2:15 PM EST Office Visit [facility]. [address] [phone] Fracisco Dillard MD [address] [phone] Stage 3 chronic kidney disease, [...] PM EST [facility] Patient Name: Diana Hercules Date of [...] in the evening. Insulin Pen Needle (Pen [place]) 32G X 4 MM misc 1 Device [...] Office Visit [facility] [address] [phone] Fracisco Dillard MD [address] [phone] documented as of this encounter [...] WBC 4.9 3.4 - 10.8 x10E3/uL [facility] RBC 3.57(L) 4.14 - 5.80 x10E6/uL [facility] Hemoglobin 9.9(L) 13.0 - 17.7 g/dL [facility] Hematocrit 31.8(L) 37.5 - 51.0 % [facility] MCV 89 79 - 97 fL [facility] MCH 27.7 26.6 - 33.0 pg [facility] MCHC 31.1(L) 31.5 - 35.7 g/dL [facility] RDW 15.7(H) 11.6 - 15.4 % [facility] Platelets 194 150 - 450 x10E3/uL [facility] Blood (Blood, Venous) 08/03/2024 2:41 PM EST 08/03/2024 Fracisco Dillard MD LAB BLOOD ORDERABLES Final Resul t Performing Organization Address [facility] Co de Phone Number [facility] [address] [place] [address] * (ABNORMAL) Iron Panel (Fe, TIBC, TSAT) (08/03/2024 2:41 PM EST) TIBC 181(L) 250 - 450 ug/dL [facility] UIBC 148 111 - 343 ug/dL [facility] Iron 33(L) 38 - 169 ug/dL [facility] Iron Saturation (TSat) 18 15 - 55 % [facility] Blood (Blood, Venous) 08/03/2024 2:41 PM EST 08/03/2024 us Fracisco Dillard MD LAB BLOOD ORDERABLES Final Resul t Performing Organization Address [facility]/ZIP Co de Phone Number [facility] [address] [place] [address] * Ferritin (08/03/2024 2:41 PM EST) Ferritin 364 30 - 400 ng/mL [facility] Blood (Blood, Venous) 08/03/2024 2:41 PM EST 08/03/2024 Fracisco Dillard MD LAB BLOOD ORDERABLES Final Resul t [facility] [address] [place] [address] * (ABNORMAL) Renal funtion panel (08/03/2024 2:41 PM EST) Glucose 102(H) 70 - 99 mg/dL [facility] BUN 32(H) 8 - 27 mg/dL [facility] Creatinine 4.16(H) 0.76 - 1.27 mg/dL [facility] eGFR CKD-EPI CR 2020 15(L) >59 mL/min/1.7 3 [facility] BUN/Creatinine Ratio 8(L) 10 - 24 [facility] Sodium 139 134 - 144 mmol/L [facility] Potassium 5.0 3.5 - 5.2 mmol/L [facility] Chloride 109(H) 96 - 106 mmol/L [facility] Bicarbonate (CO2) 20 20 - 29 mmol/L [facility] Calcium 8.0(L) 8.6 - 10.2 mg/dL [facility] Albumin 2.9(L) 3.9 - 4.9 g/dL [facility] Phosphorus 4.4(H) 2.8 - 4.1 mg/dL [facility] Blood (Blood, Venous) 08/03/2024 2:41 PM EST 08/03/2024 us Fracisco Dillard MD LAB BLOOD ORDERABLES Final Resul t [facility] [address] [place] [address] documented in this encounter Visit Diagnoses Diagnosis Stage 3 chronic kidney disease, not otherwise specified (HCC)- Primary Hypertension Diabetes mellitus, not otherwise specified (HCC) Nephrotic range proteinuria Anemia in chronic kidney disease documented in this encounter Care Teams Intervention Teacher Relationship Specialty Start Date End Date Chris Boucher MD [address] [place] [phone] PCP - General Internal Medicine 08/03/24 documented as of this encounter
== END ==
LOC: HO.CARD 10:39
PROVIDERS: PCP Internal Medicine
DX: I50.9 Heart failure, unspecified (principal)
CPT/HCPCS: 93306

== ENCOUNTER → 2024-08-21 10:43 | Outpatient (BNV) | payer OTHER, SELFPAY | PROVIDERS: PCP Internal Medicine; Visit Provider Internal Medicine Cardiovascular Disease | DX: I42.2 Other hypertrophic cardiomyopathy (principal); I50.9 Heart failure, unspecified | CPT/HCPCS: 93306; 93356 ==

== ENCOUNTER 2024-10-01 23:41 | Inpatient (IN) | payer OTHER, SELFPAY ==
--- NOTE | 2024-10-01 | ECG_ITS ---
Test Reason : DIZZINESS Blood Pressure : */* mmHG Vent. Rate : 59 BPM Atrial Rate : 59 BPM P-R Int : 186 ms QRS Dur : 86 ms QT Int : 446 ms P-R-T Axes : 40 37 50 degrees QTcB Int : 441 ms Sinus bradycardia Otherwise normal ECG When compared with ECG of 23-Oct-2023 10:00, Nonspecific T wave abnormality now evident in Lateral leads Referred By: Generic ED Physician Electronically Signed By: TRACEY PARKS MD
--- NOTE | ~2024-10-01 | CT_ITS ---
CLINICAL HISTORY: fall CT head without contrast Comparison: CT/DE/SR - CT HEAD/BRAIN WO IV CON - 09/06/23 13:40 EDT Findings: No intra-axial mass, midline shift, hydrocephalus, or acute hemorrhage. No significant atrophy-like change or white matter disease. The visualized paranasal sinuses and mastoid air cells are normal. The orbits are within normal limits. No skull fracture. IMPRESSION: 1. No acute intracranial findings. This document has been electronically signed by: Rosi Robles MD on 10/02/2024 05:52:30
[2024-10-01 23:45] VITALS: BP 140/74; PULSE 61; RESP 16; TEMP 36.2; O2SAT 98; BMI 35.0
[2024-10-02] VITALS (20 sets, daily range): BP systolic 160–198; BP diastolic 63–95; PULSE 64–78; RESP 14–20; TEMP 35.9–36.7; O2SAT 95–98; BMI 34.2
[2024-10-02 02:47] LABS: MANUAL DIFF FLAG NO
[2024-10-02 02:48] LABS: Basophils Percent Auto 0.4 % (0-2); Eosinophils Absolute Auto 0.2 X10*3/uL (0.0-0.4); Eosinophils Percent Auto 3.9 % (0-4); Hematocrit 23.2 % (42.0-52.0); Hemoglobin 7.7 g/dl (14.0-18.0); Imm Gran Abs Auto 0.01 X10*3/uL (0.00-0.03); Imm Gran Pct Auto 0.2 % (0.0-0.4); Lymphocytes Absolute Auto 1.3 X10*3/uL (1.2-4.9); Lymphocytes Percent Auto 28.9 % (20-40); Mean Corpuscular HGB Conc 33.2 g/dl (31.0-36.0); Mean Corpuscular Hemoglobin 28.6 pg (27.0-33.0); Mean Corpuscular Volume 86.2 fL (80.0-98.0); Mean Platelet Volume 10.3 fL (9.4-12.4); Monocytes Absolute Auto 0.4 X10*3/uL (0.1-1.2); Monocytes Percent Auto 7.6 % (2-11); Neutrophils Absolute Auto 2.7 x10*3/uL (2.0-8.3); Platelet Count 182 X10*3/uL (160-400); Red Blood Count 2.69 X10*6/uL (4.60-5.80); Red Cell Distribution Width 16.8 % (11.0-16.0); White Blood Count 4.6 X10*3/uL (4.8-10.8)
[2024-10-02 03:15] LABS: Alanine Aminotransferase 21 U/L (0-40); Albumin Level 2.5 g/dL (3.5-5.0); Alkaline Phosphatase 119 U/L (39-117); Anion Gap 14 (12-20); Aspartate Amino Transferase 24 U/L (5-37); Bilirubin Total 0.1 mg/dL (0.0-1.0); Blood Urea Nitrogen 65 mg/dL (9-16); Calcium 7.8 mg/dL (8.4-10.2); Carbon Dioxide 15 mmol/L (22-29); Chloride 116 mmol/L (96-108); Creatinine Clr Calc Pharmacy 15.7; Estimated Glomerular Filt Rate 10; Glucose Random 137 mg/dL (60-115); Potassium 5.1 mmol/L (3.3-5.1); Sodium 140 mmol/L (135-145); Total Protein 5.6 g/dL (6.5-8.0)
--- NOTE | 2024-10-02 04:26 | ED_ITS ---
HPI - General Adult General Chief complaint: General Medical Stated complaint: head strike Time Seen by Provider: 10/02/24 04:00 Source: patient and family Mode of arrival: ambulatory Limitations: no limitations History of Present Illness ED Provider: Dr. Alexandria Hector HPI narrative: Patient comes to the emergency room complaining of dizziness that gets worse with standing from a sitting position. Complaining of generalized weakness, shortness of breath with exertion than the milder side but not at this time, no chest pain. Patient denies any rectal bleeding or black stool. Denies being on any blood thinners. Patient states that earlier today, patient's do the up too fast, became too dizzy and fell to the ground and hit his head. Patient states that he did not lose consciousness. Related Data Home Medications ?Medication ?Instructions ?Recorded ?Confirmed atorvastatin 80 mg tablet 80 mg PO BEDTIME 08/05/23 08/07/24 diclofenac sodium 1 % topical gel 1 g topical TID PRN pain 08/05/23 08/07/24 ipratropium 0.5 mg-albuterol 3 mg 3 ml inhalation QID PRN Shortness 08/05/23 08/07/24 (2.5 mg base)/3 mL nebulization Of Breath Or Wheezing soln nifedipine 30 mg tablet,extended 90 mg PO DAILY 11/20/23 08/07/24 release 24 hr sertraline 100 mg tablet 100 mg PO DAILY 08/07/24 08/07/24 dapagliflozin propanediol 5 mg 10 mg PO DAILY 08/25/24 tablet Previous Rx's ?Medication ?Instructions ?Recorded blood pressure monitor (Blood #1 ea 01/31/24 Pressure Kit) carvedilol 25 mg tablet 25 mg PO BID #180 tabs 04/29/24 lisinopril 40 mg tablet 40 mg PO DAILY #90 tabs 04/29/24 furosemide 20 mg tablet 20 mg PO DAILY #90 tabs 07/28/24 insulin glargine 100 unit/mL 8 unit (0.08 mL) subcut QPM #10 mL 08/07/24 subcutaneous solution spironolactone 25 mg tablet 25 mg PO DAILY #90 tabs 09/23/24 hydralazine 10 mg tablet 25 mg (2.5 x 10 mg) PO BID #180 09/30/24 tabs Allergies Allergy/AdvReac Type Severity Reaction Status Date / Time No Known Allergies Allergy Verified 10/01/24 23:49 Review of Systems 2 Review of Systems: Constitutional : No Weight loss, No Fever, No Chills, No Night Sweats, complaining of fatigue ENT/Mouth : No Hearing loss, No Ear Pain, No Nasal Congestion, No Sinus Pain, No Hoarseness, No sore throat, No Rhinorrhea, No Swallowing Difficulty Eyes: No Eye Pain, No Swelling, No Redness, No Foreign Body, No Discharge, No Vision Changes Cardiovascular : No Chest Pain, No SOB, No Dyspnea on Exertion, No Orthopnea, No Edema, No Palpitations, complaining of dizziness with standing Respiratory : No Cough, No Sputum, No Wheezing, No Smoke Exposure, No Dyspnea Gastrointestinal : No Nausea, No Vomiting, No Diarrhea, No Constipation, No abdominal Pain, No Hematochezia, No Melena Genitourinary : no irregular bleeding, No Dysuria, No Urinary Frequency, No Hematuria, No Urinary Incontinence, No Urgency, No Flank Pain, No Urinary Flow Changes, No Hesitancy Musculoskeletal : No joint pain, No Myalgias, No Joint Swelling Skin : No Skin Lesions, No rash Neuro : No Weakness, No Numbness, No Paresthesias, No Loss of Consciousness, No Dizziness, No Headache Psych : No Anxiety/Panic, No Depression, No SI/HI/AH/VH, No Social Issues, Heme/Lymph: No Bruising, No Bleeding,No Lymphadenopathy Endocrine : No Polyuria, No Polydipsia, No Temperature Intolerance PMFSH Past Medical History Medical History RACHEL (obstructive sleep apnea) Heart failure Hypercholesterolemia Hypertension Diabetes Social History Social History Household Members: Family Housing: House Do you presently have visiting nurse or other home services: No Alcohol intake: current Alcohol type: beer Patient Tobacco Use Status: Never used Tobacco Advance Directives: Yes Advance Directives on File: Yes Advance Directives Date on File: 08/08/23 Do you have a plan to hurt others: No Plan service: No Physical Exam ED Vital Signs: Vital Signs - 24 hr 10/01/24 23:45 Temperature 97.2 F Pulse Rate 61 Respiratory Rate 16 Blood Pressure 140/74 H Pulse Oximetry 98 Oxygen Delivery Method Room Air BMI result Body Mass Index 35.0 Const Other: Appearance: Alert. Oriented X3. No acute distress. Eyes: Pupils equal, round and reactive to light. ENT: Pharynx normal. Neck: Normal inspection. Neck supple. No lymph nodes noted. No crepitus CVS: Normal heart rate and rhythm. Pulses normal. Normal S1 and S2 Respiratory: No respiratory distress. Breath sounds normal. No Wheezing. No rales Abdomen: Soft and nontender. No rigidity. No distention. Brown stool per rectum Skin: Skin warm and dry. Normal skin color. Normal skin turgor. Extremities: No lower extremity edema. No Lacerations. No Rash Neuro: Oriented X 3. No motor deficit. No sensory deficit. Moving all extremities. No slurred speech. CN 2 through 12 grossly intact Psych: calm, cooperative, normal affect Course Course Course Narrative: All of patient's labs pending Medical Decision Making Medical Decision Making [facility] Narrative: My interpretation of EKG: Sinus bradycardia, heart rate 59, no ST segment depression or elevation, no T-wave inversion, QTC 441 Patient's vitals stable, 140/74, pulse 61, oxygen saturation 98% on room air I discussed the labs with the patient. Today his hemoglobin is 7.7. Also creatinine is significantly more elevated than baseline of 2.4. Today creatinine 5.78 I discussed with the patient the risks versus benefits of a blood transfusion. Patient decided to proceed with the transfusion. Patient will need at least 2 units I discussed the patient with Dr. George, patient being admitted Differential Diagnosis Differential Diagnoses: The differential diagnosis associated with the presentation includes (Acute on chronic kidney failure. Anemia, rectal bleeding) Admission/Observation Consideration of admission/observation: Escalation of care including admission/observation considered Consult Healthcare Provider Management of the patient was discussed with: Hospitalist Lab Data [facility] Lab Attestation statement: I reviewed the patient's lab results. 10/02/24 02:42 10/02/24 02:42 Labs: Lab Results 10/02/24 Range/Units 02:42 WBC 4.6 L (4.8-10.8) X10*3/uL RBC 2.69 L D (4.60-5.80) X10*6/uL Hgb 7.7 L D (14.0-18.0) g/dl Hct 23.2 L D (42.0-52.0) % MCV 86.2 (80.0-98.0) fL MCH 28.6 (27.0-33.0) pg MCHC 33.2 (31.0-36.0) g/dl RDW 16.8 H (11.0-16.0) % Plt Count 182 (160-400) X10*3/uL MPV 10.3 (9.4-12.4) fL Immature Gran % (Auto) 0.2 (0.0-0.4) % Neut % (Auto) 59.0 (45-73) % Lymph % (Auto) 28.9 (20-40) % [place] % (Auto) 7.6 (2-11) % Eos % (Auto) 3.9 (0-4) % Baso % (Auto) 0.4 (0-2) % Lymph # (Auto) 1.3 (1.2-4.9) X10*3/uL [place] # (Auto) 0.4 (0.1-1.2) X10*3/uL Eos # (Auto) 0.2 (0.0-0.4) X10*3/uL Baso # (Auto) 0.0 (0.0-0.2) X10*3/uL Abs Immat Gran (auto) 0.01 (0.00-0.03) X10*3/uL Absolute Neuts (auto) 2.7 (2.0-8.3) x10*3/uL Absolute Nucleated RBC 0.000 (0.0-0.012) X10*3/uL Nucleated RBC % (auto) 0.0 (0.0-0.2) /100WBC Sodium 140 (135-145) mmol/L Potassium 5.1 D (3.3-5.1) mmol/L Chloride 116 H (96-108) mmol/L Carbon Dioxide 15 L (22-29) mmol/L Anion Gap 14 (12-20) BUN 65 H (9-16) mg/dL Creatinine 5.78 H* (0.5-1.4) mg/dL Estim Creat Clear Calc 15.7 Estimated GFR 10 Random Glucose 137 H (60-115) mg/dL Calcium 7.8 L (8.4-10.2) mg/dL Total Bilirubin 0.1 (0.0-1.0) mg/dL AST 24 (5-37) U/L ALT 21 (0-40) U/L Alkaline Phosphatase 119 H (39-117) U/L Troponin I High Sens 5.0 D (<3.5-35.0) ng/L Total Protein 5.6 L (6.5-8.0) g/dL Albumin 2.5 L (3.5-5.0) g/dL Independent Interpretation I performed an independent interpretation of an: EKG Critical Care Time Critical Care Time Critical Care Time: Yes Total Critical Care Time: 60 Attestation: I have personally provided critical care time. Time includes review of lab data, radiology results, discussion with consultants, and monitoring for potential decompensation. Intervention performed as documented. Discharge Plan Discharge Clinical Impression: Acute renal failure superimposed on chronic kidney disease, Anemia Patient Disposition: Admitted As Inpatient Prescriptions: No Action (DME) blood pressure monitor [Blood Pressure Kit] Kit See Rx Instructions .ROUTE .MEDSUPPLY Qty: 1 0RF Rx Instructions: As directed carvedilol 25 mg tablet 25 mg PO BID Qty: 180 1RF Protocol: Hold for SBP/HR < HOLD for SBP < : 90 HOLD for HR < : 60 lisinopril 40 mg tablet 40 mg PO DAILY Qty: 90 3RF furosemide 20 mg tablet 20 mg PO DAILY Qty: 90 3RF dapagliflozin propanediol 5 mg tablet 10 mg PO DAILY spironolactone 25 mg tablet 25 mg PO DAILY Qty: 90 3RF hydralazine 10 mg tablet 25 mg PO BID Qty: 180 3RF atorvastatin 80 mg tablet 80 mg PO BEDTIME ipratropium-albuterol 0.5 mg-3 mg(2.5 mg base)/3 mL solution for nebulization 3 ml inhalation QID PRN (Reason: Shortness Of Breath Or Wheezing) diclofenac sodium 1 % gel 1 g topical TID PRN (Reason: pain) nifedipine 30 mg tablet extended release 24hr 90 mg PO DAILY Protocol: Hold for SBP< HOLD for SBP < : 90 sertraline 100 mg tablet 100 mg PO DAILY insulin glargine 100 unit/mL solution 8 unit subcut QPM Qty: 10 0RF Print Language: Icelandic
[2024-10-02 04:31] LABS: OBS Int Ctl Valid YES
[2024-10-02 04:34] LABS: OBS1 NEGATIVE (NEGATIVE)
--- NOTE | 2024-10-02 04:43 | MHC.EDTECH ---
Type N Screen drawn and sent to lab, applied band to left wrist.
--- NOTE | 2024-10-02 05:56 | P.HPHOSP_ITS ---
History of Present Illness Date of Service: 10/02/24 Chief Complaint: Weakness This is a 59-year-old male with pertinent history of congestive heart failure with preserved ejection fraction, insulin-dependent diabetes mellitus, obstructive sleep apnea, hypertension, mixed hyperlipidemia, chronic kidney disease who presents to the emergency department for evaluation of weakness and dizziness/lightheadedness. Patient states he has been feeling unwell for the last 2 days. He was having loose stools for the last few days which has stopped now. Denies blood in stool or black stools. Patient states that 1 day prior to presentation he tried to get up from a seated position when he felt dizzy, lightheaded and fell hitting his head. He did not lose consciousness. States he has been eating and drinking okay and does not have any vomiting. Is compliant with his home medications but states he has too many medications and does not know what medication is for what. Endorses easy fatigability and malaise. No fever, chills, chest pain, palpitations, shortness of breath, abdominal pain, changes in urinary or bowel habits. In the emergency department, creatinine found to be 5.78. Review of Systems 2 Constitutional: Constitutional: Reports fatigue, Reports lethargy, Reports malaise and Reports weakness ENT: Reports dizziness Cardiovascular: Cardiovascular: Reports no additional cardiovascular complaints Respiratory: Respiratory: Reports no additional respiratory complaints Gastrointestinal: Gastrointestinal: Reports diarrhea and Reports loose stools Genitourinary: Genitourinary: Reports no additional male genitourinary complaints Neurologic: Reports dizziness and Reports weakness Endocrine: Endocrine: Reports fatigue [facility] Medical History RACHEL (obstructive sleep apnea) Heart failure Hypercholesterolemia Hypertension Diabetes Pertinent family history: No family history of early CAD Social History Household Members: Family Housing: House Do you presently have visiting nurse or other home services: No Alcohol intake: never Patient Tobacco Use Status: Never used Tobacco Smoked in Last 30 Days: No Use of substances other than those prescribed or required for medical reasons: No Any prior treatment program specific to substance use: No Advance Directives: Yes Advance Directives on File: Yes Advance Directives Date on File: 08/08/23 Do you have a plan to hurt others: No Plan service: No Meds Allergies Allergy/AdvReac Type Severity Reaction Status Date / Time No Known Allergies Allergy Verified 10/01/24 23:49 Active Medications: Current Medications Lactated Ringer's (Lr) 1,000 mls @ 125 mls/hr IVCONT .Q8H SWETHA Stop: 10/02/24 13:29 Home Medications ?Medication ?Instructions ?Recorded ?Confirmed ?Last Taken ?Type atorvastatin 80 mg tablet 80 mg PO BEDTIME 08/05/23 08/07/24 08/04/23 History diclofenac sodium 1 % topical gel 1 g topical TID PRN pain 08/05/23 08/07/24 Unknown History ipratropium 0.5 mg-albuterol 3 mg 3 ml inhalation QID PRN Shortness 08/05/23 08/07/24 Unknown History (2.5 mg base)/3 mL nebulization Of Breath Or Wheezing soln nifedipine 30 mg tablet,extended 90 mg PO DAILY 11/20/23 08/07/24 Unknown History release 24 hr sertraline 100 mg tablet 100 mg PO DAILY 08/07/24 08/07/24 Unknown History dapagliflozin propanediol 5 mg 10 mg PO DAILY 08/25/24 Unknown History tablet Physical Exam 2 Vital Signs and Narrative: Vital Signs: Last Vital Signs Temp 97.5 F 10/02/24 05:51 Pulse 64 10/02/24 05:51 Resp 16 10/02/24 05:51 BP 162/85 H 10/02/24 05:51 Pulse Ox 98 10/02/24 05:49 O2 Del Method Room Air 10/02/24 05:49 BMI result Body Mass Index 35.0 Middle-aged male lying in bed in no distress Neck supple, no JVD, dry mucous membrane Regular rate and rhythm, S1-S2 heard Regular breath sounds bilaterally, no wheezing or crackles appreciated Abdomen soft nontender, no guarding, no rigidity Patient is awake, alert and oriented to self, place, time and person ; no focal motor deficit Psych: Normal mood No pedal edema Results Labs 10/02/24 02:42 10/02/24 02:42 Labs: Laboratory Results - last 24 hr 10/02/24 10/02/24 10/02/24 02:42 04:28 04:41 MCV 86.2 MCH 28.6 MCHC 33.2 RDW 16.8 H Plt Count 182 MPV 10.3 Immature Gran % (Auto) 0.2 Neut % (Auto) 59.0 Lymph % (Auto) 28.9 [place] % (Auto) 7.6 Eos % (Auto) 3.9 Baso % (Auto) 0.4 Lymph # (Auto) 1.3 [place] # (Auto) 0.4 Eos # (Auto) 0.2 Baso # (Auto) 0.0 Abs Immat Gran (auto) 0.01 Absolute Neuts (auto) 2.7 Absolute Nucleated RBC 0.000 Nucleated RBC % (auto) 0.0 Anion Gap 14 Estim Creat Clear Calc 15.7 Estimated GFR 10 Random Glucose 137 H Calcium 7.8 L Total Bilirubin 0.1 AST 24 ALT 21 Alkaline Phosphatase 119 H Total Protein 5.6 L Albumin 2.5 L Stool Occult Blood NEGATIVE Blood Type A Positive Antibody Screen NEGATIVE Crossmatch See Detail Assessment and Plan (1) Acute renal failure superimposed on chronic kidney disease: Status: Acute Plan This is a 59-year-old male with pertinent history of congestive heart failure with preserved ejection fraction, insulin-dependent diabetes mellitus, obstructive sleep apnea, hypertension, mixed hyperlipidemia, chronic kidney disease who presents to the emergency department for evaluation of weakness and dizziness/lightheadedness. #. Acute kidney injury on CKD with non-anion gap metabolic acidosis: Will resuscitate with IV crystalloids. Monitor creatinine and urine output. UA pending. Consulted Nephrology. Avoid nephrotoxins #. Chronic normocytic anemia due to CKD: PRBC ordered by ER provider as Hb lower than baseline. Stool occult negative. Continue to monitor H&H. If hemoglobin drops, GI consult #. Congestive heart failure with preserved ejection fraction / Hypertension: Hold spironolactone, furosemide and lisinopril in the setting of MARII #. Mixed hyperlipidemia: On high-intensity statin #. Insulin-dependent diabetes mellitus: Initiating basal plus insulin regimen #. RACHEL: Ordered CPAP at bedtime Med rec pending DVT prophylaxis: Mechanical Full code Admit as inpatient and will require two night minimum hospital stay for monitoring of kidney function, hemodynamic monitoring, monitoring of H&H (as above), which is not possible in a lesser acute setting. Videotape Recording Engineer consult pending Quality Stroke Does the patient have a stroke diagnosis?: No VTE Prior VTE?: No VTE Risk Level:: Medical - moderate - high VTE Device Contraindication: N/A - Device Ordered VTE Drug Contraindication: Treatment Not Indicated
--- NOTE | 2024-10-02 05:56 | PC.NURSE ---
first unit of prbc started and pt teaching on s/s of reaction gone over with daughter at bedside.
--- NOTE | 2024-10-02 06:05 | PC.NURSE ---
pt first 15 into the blood transfusion no s/s of reaction sat 98% on room air.
--- NOTE | 2024-10-02 06:31 | PC.NURSE ---
lab present to draw pt labs but pt is receiving blood products at this time. next rn will be made aware to call for the labs to be drawn.
[2024-10-02 07:24] LABS: Glucose, Whole Blood 88 mg/dL (60-115)
[2024-10-02] MEDS: Sodium Bicarbonate 650 MG TABLET PO (07:59)
[2024-10-02] MEDS: Lactated Ringers 1,000 ML 999 ML IV (07:59)
[2024-10-02] MEDS: 0.9 % Sodium Chloride Flush 3 ML SYRINGE IVFLUSH ×2 (07:59→16:12)
--- NOTE | 2024-10-02 08:21 | PC.NURSE ---
called pharmacy to complete pts med rec
--- NOTE | 2024-10-02 08:23 | PC.NURSE ---
called lab to complete AM blood draw
--- NOTE | 2024-10-02 08:51 | MHC.CM.PN ---
Patient lives alone and he has his own ride home. Geno is the HCP and Dr. Chris Boucher is the PCP. Home/self care is Patient's goal and CM has initiated and will follow for dc planning.
[2024-10-02 10:11] LABS: Iron 86 mcg/dL (45-160); Percent Iron Saturation 54 % (15-50); Total Iron Binding Capacity 160 mcg/dL (228-428); Unsaturated Iron Binding 74 ug/dL
[2024-10-02 10:45] LABS: Folate 3.7 ng/mL (> or = 4.0); Vitamin B12 588 pg/mL (200-900)
[2024-10-02 10:55] LABS: Glucose, Whole Blood 128 mg/dL (60-115)
--- NOTE | 2024-10-02 10:58 | PHA.MEDREC ---
Addendum entered by Cassandra Pack [facility] 10/02/24 11:21: COnfirmed with Dr Willett's office hydralaine is 10 mg bid and nifedipine er 90 mg is still active Original Note: Pharmacy Consult ? Medication Reconciliation Pharmacy has completed the medication reconciliation.Med rec complete to best of our ability but there are still questions. WE spoke to patient, patient's daughter, and an ex-, as well as the visiting nurse who comes to do his medications. ALso compared recent pharmacy claims and left a message with Dr Willett's office to attempt to get a list of current medications. PAtient is unable to provide information, stating he takes his meds but is not aware of the names.
[2024-10-02 15:00] LABS: Anion Gap 13 (12-20); Blood Urea Nitrogen 62 mg/dL (9-16); Calcium 7.6 mg/dL (8.4-10.2); Carbon Dioxide 12 mmol/L (22-29); Chloride 119 mmol/L (96-108); Creatinine Clr Calc Pharmacy 16.1; Estimated Glomerular Filt Rate 10; Glucose Random 154 mg/dL (60-115); Potassium 5.4 mmol/L (3.3-5.1); Sodium 139 mmol/L (135-145)
[2024-10-02] MEDS: Sodium Zirconium Cyclosilicate 10 GM POWD.PACK PO (16:07)
[2024-10-02] MEDS: cloNIDine HCL 0.1 MG TABLET PO ×2 (16:07→20:30)
[2024-10-02 16:45] LABS: Glucose, Whole Blood 118 mg/dL (60-115)
[2024-10-02] MEDS: hydrALAZINE HCl 20 MG/ML VIAL 10 MG IVPUSH (18:32)
[2024-10-02] MEDS: Zolpidem Tartrate 5 MG TABLET PO (20:30)
[2024-10-02] MEDS: Mirtazapine 15 MG TABLET PO (20:30)
[2024-10-02] MEDS: Atorvastatin Calcium 80 MG TABLET PO (20:30)
[2024-10-02] MEDS: carvediloL 25 MG TABLET PO (20:31)
[2024-10-02] MEDS: traZODone HCL 50 MG TABLET PO (20:31)
[2024-10-02] MEDS: Doxazosin Mesylate 2 MG TABLET PO (20:31)
[2024-10-02] MEDS: hydrALAZINE HCl 10 MG TABLET PO (20:32)
[2024-10-02 20:33] LABS: Glucose, Whole Blood 114 mg/dL (60-115)
--- NOTE | 2024-10-02 21:15 | P.CONNP_ITS ---
History of Present Illness Reason for Consult Consult date: 10/02/24 Reason for consult: MARII Chief Complaint Chief complaint: generalized weakness History of Present Illness Narrative: 59-year-old male with H/O congestive heart failure with preserved ejection fraction, insulin-dependent diabetes mellitus, hypertension, chronic kidney disease who presented to the emergency department for evaluation of weakness and dizziness/lightheadedness. Patient states he has been feeling unwell for the last 2 days. He was having loose stools for the last few days which has stopped now. Denies blood in stool or black stools. Patient states that 1 day prior to presentation he tried to get up from a seated position when he felt dizzy, lightheaded and fell hitting his head. He did not lose consciousness. States he has been eating and drinking okay and does not have any vomiting. Endorses easy fatigability and malaise. No fever, chills, chest pain, palpitations, shortness of breath, abdominal pain, changes in urinary or bowel habits. He was found to have MARII and was admitted for further management. Nephrology has been consulted to assist in his clinical care during his current hospital stay Review of Systems Review of Systems Yes all other systems are reviewed and are negative PMFSH Past Medical History Medical History RACHEL (obstructive sleep apnea) Heart failure Hypercholesterolemia Hypertension Diabetes Social History Social History Household Members: Family Household Members Other:: grandson Housing: House Do you presently have visiting nurse or other home services: No Alcohol intake: never Patient Tobacco Use Status: Former Tobacco user Tobacco use type: Cigarette Second Hand Smoke Exposure: No Advance Directives Date on File: 08/08/23 service: No Meds Allergies Allergy/AdvReac Type Severity Reaction Status Date / Time No Known Allergies Allergy Verified 10/01/24 23:49 Active Medications: Current Medications Acetaminophen (Acetaminophen 325 Mg Tablet) 650 mg PO Q6H PRN PRN Reason: Pain, Mild 1-3,fever,headache Aripiprazole (Aripiprazole 2 Mg Tablet) 2 mg PO DAILY [facility] Atorvastatin Calcium (Atorvastatin Calcium 80 Mg Tablet) 80 mg PO BEDTIME [facility] Last Admin: 10/02/24 20:30 Dose: 80 mg Bupropion HCl (Bupropion Hcl Xl 150 Mg Tab.Er.24h) 150 mg PO DAILY [facility] Calcium Carbonate (Calcium Carbonate 750 Mg Tab.Chew) 750 mg PO Q4H PRN PRN Reason: Heartburn Carvedilol (Carvedilol 25 Mg Tablet) 25 mg PO BID [facility]; Protocol Last Admin: 10/02/24 20:31 Dose: 25 mg Clonidine HCl (Clonidine Hcl 0.1 Mg Tablet) 0.1 mg PO BID [facility]; Protocol Last Admin: 10/02/24 20:30 Dose: 0.1 mg Dextrose (Dextrose 50 % 25 Gm/50 Ml Syringe) 25 gm IVPUSH Q15M PRN; Protocol PRN Reason: per Hypoglycemia Standing Ord. Doxazosin Mesylate (Doxazosin Mesylate 2 Mg Tablet) 2 mg PO BEDTIME [facility]; Protocol Last Admin: 10/02/24 20:31 Dose: 2 mg Glucose (Glucose Gel 15 Gm Gel..Gram.) 15 gm PO Q15M PRN; Protocol PRN Reason: per Hypoglycemia Standing Ord. Hydralazine HCl (Hydralazine Hcl 10 Mg Tablet) 10 mg PO BID [facility]; Protocol Last Admin: 10/02/24 20:32 Dose: 10 mg Insulin Glargine (Insulin Glargine,Hum.Rec.Anlog 100 Unit/Ml 10 Ml Vial) 10 unit SUBCUT BEDTIME [facility] Insulin Human Lispro (Insulin Lispro 100 Unit/Ml 3 Ml Vial) 0 unit SUBCUT QIDACHS [facility]; Protocol Last Admin: 10/02/24 16:46 Dose: Not Given Loratadine (Loratadine 10 Mg Tablet) 10 mg PO DAILY [facility] Magnesium Hydroxide (Milk Of Magnesia 30 Ml Oral.Susp) 30 ml PO DAILY PRN PRN Reason: Constipation Melatonin (Melatonin 3 Mg Tablet) 6 mg PO BEDTIME PRN PRN Reason: Insomnia Methocarbamol (Methocarbamol 750 Mg Tablet) 750 mg PO Q6H PRN PRN Reason: muscle spasm Mirtazapine (Mirtazapine 15 Mg Tablet) 15 mg PO BEDTIME [facility] Last Admin: 10/02/24 20:30 Dose: 15 mg Nifedipine (Nifedipine Er 30 Mg Tab.Er.24) 90 mg PO DAILY [facility]; Protocol Ondansetron HCl (Ondansetron Hcl 4 Mg/2 Ml Vial) 4 mg IVPUSH Q8H PRN PRN Reason: Nausea and Vomiting Sertraline HCl (Sertraline Hcl 50 Mg Tablet) 50 mg PO DAILY [facility] Sodium Chloride (0.9 % Sodium Chloride Flush 3 Ml Syringe) 3 ml IVFLUSH QSHIFT [facility] Last Admin: 10/02/24 16:12 Dose: 3 ml Trazodone HCl (Trazodone Hcl 50 Mg Tablet) 50 mg PO BEDTIME [facility] Last Admin: 10/02/24 20:31 Dose: 50 mg Vitamin D (Cholecalciferol (Vitamin D3) 25 Mcg Tablet) 125 mcg PO DAILY [facility] Zolpidem Tartrate (Zolpidem Tartrate 5 Mg Tablet) 5 mg PO BEDTIME [facility] Last Admin: 10/02/24 20:30 Dose: 5 mg Home Medications ?Medication ?Instructions ?Recorded ?Confirmed ?Last Taken ?Type atorvastatin 80 mg tablet 80 mg PO BEDTIME 08/05/23 10/02/24 3 Weeks Ago History ~09/11/24 nifedipine 30 mg tablet,extended 90 mg PO DAILY 11/20/23 10/02/24 3 Weeks Ago History release 24 hr ~09/11/24 dapagliflozin propanediol 5 mg 5 mg PO DAILY 08/25/24 10/02/24 3 Weeks Ago History tablet ~09/11/24 aripiprazole 2 mg tablet 2 mg PO DAILY 10/02/24 10/02/24 3 Weeks Ago History ~09/11/24 bupropion HCl 150 mg 24 hr tablet, 150 mg PO DAILY 10/02/24 10/02/24 Unknown History extended release cholecalciferol (vitamin D3) 125 125 mcg PO DAILY 10/02/24 10/02/24 3 Weeks Ago History mcg (5,000 unit) tablet (Vitamin ~09/11/24 D3) clonidine HCl 0.1 mg tablet 0.1 mg PO BID 10/02/24 10/02/24 Unknown History doxazosin 2 mg tablet 2 mg PO BEDTIME 10/02/24 10/02/24 Unknown History hydralazine 10 mg tablet 10 mg PO BID 10/02/24 10/02/24 3 Weeks Ago History ~09/11/24 insulin glargine 100 unit/mL 10 unit subcut BEDTIME 10/02/24 10/02/24 3 Weeks Ago History subcutaneous solution ~09/11/24 leflunomide 10 mg tablet 10 mg PO DAILY 10/02/24 3 Weeks Ago History ~09/11/24 loratadine 10 mg tablet 10 mg PO DAILY 10/02/24 10/02/24 3 Weeks Ago History ~09/11/24 methocarbamol 750 mg tablet 750 mg PO Q6H PRN muscle spasm 10/02/24 10/02/24 3 Weeks Ago History ~09/11/24 mirtazapine 15 mg tablet 15 mg PO BEDTIME 10/02/24 10/02/24 3 Weeks Ago History ~09/11/24 sertraline 50 mg tablet 50 mg PO DAILY 10/02/24 10/02/24 Unknown History trazodone 50 mg tablet 50 mg PO BEDTIME 10/02/24 10/02/24 Unknown History zolpidem 10 mg tablet 10 mg PO BEDTIME 10/02/24 10/02/24 3 Weeks Ago History ~09/11/24 Physical Exam Vital Signs: Last Vital Signs Temp 96.7 F L 10/02/24 19:47 Pulse 68 10/02/24 20:31 Resp 14 10/02/24 19:47 BP 196/63 H 10/02/24 20:32 Pulse Ox 98 10/02/24 19:47 O2 Del Method Room Air 10/02/24 19:47 BMI result Body Mass Index 34.2 Const General: no acute distress Orientation/consciousness: patient oriented x3 Eyes EOM: EOMs intact bilaterally Neck Neck: Yes supple Resp Auscultation: diminished lung sounds Cardio Rate: regular rate GI Palpation (GI): Soft to palpation Neuro General: patient oriented x3 and moves all extremities Results Lab Results 10/02/24 02:42 10/02/24 14:19 Lab results: Chemistry 10/02/24 10/02/24 02:42 14:19 Sodium 140 139 Potassium 5.1 D 5.4 H Carbon Dioxide 15 L 12 L BUN 65 H 62 H Creatinine 5.78 H* 5.56 H* Calcium 7.8 L 7.6 L Hematology 10/02/24 02:42 WBC 4.6 L Hgb 7.7 L D Plt Count 182 Assessment and Plan (1) Acute kidney injury superimposed on stage 4 chronic kidney disease: Status: Acute (2) Metabolic acidosis: Status: Acute Plan MARII due to tubular injury Has CKD 4 at baseline UO OK; No reason to suspect GN/AIN CK W/U ordered;Started NaHCO3 1300 bid No indication for renal replacement now C/W rest of current management Labs AM. Shall closely F/U Procedures Date of Service Date of Service: 10/02/24
[2024-10-02] MEDS: Sodium Bicarbonate 650 MG TABLET 1300 MG PO (21:52)
[2024-10-02] MEDS: Insulin Glargine,Hum.rec.anlog 100 UNIT/ML 10 ML VIAL 10 UNIT SUBCUT (21:53)
[2024-10-03] VITALS (7 sets, daily range): BP systolic 135–174; BP diastolic 64–88; PULSE 63–75; RESP 16–23; TEMP 36.1–36.2; O2SAT 96–100
[2024-10-03] MEDS: hydrALAZINE HCl 20 MG/ML VIAL IVPUSH (00:25)
[2024-10-03] MEDS: 0.9 % Sodium Chloride Flush 3 ML SYRINGE IVFLUSH ×3 (01:39→16:18)
--- NOTE | 2024-10-03 04:40 | PC.NURSE ---
pt is pleasant and conversational. his 2nd unit of rbcs has completed at the start of the night. he has no active bleeding. he has been placed on nocturnal cpap. resp effort is regular unlabored. ecg displays sr. pt has experienced refractory htn with sbp 180-[address] lassiter contacted and b/ps reviewed. stat dose of hydralazine 20 mg ivp given. b/p has improved slightly 174/88.
[2024-10-03 06:44] LABS: Hematocrit 29.2 % (42.0-52.0); Hemoglobin 9.9 g/dl (14.0-18.0); Mean Corpuscular HGB Conc 33.9 g/dl (31.0-36.0); Mean Corpuscular Volume 85.6 fL (80.0-98.0); Mean Platelet Volume 10.4 fL (9.4-12.4); Platelet Count 175 X10*3/uL (160-400); Red Blood Count 3.41 X10*6/uL (4.60-5.80); Red Cell Distribution Width 16.4 % (11.0-16.0); White Blood Count 3.7 X10*3/uL (4.8-10.8)
[2024-10-03 07:05] LABS: Parathyroid Hormone Intact 251.3 pg/mL (8.7-77.1)
[2024-10-03 07:21] LABS: Glucose, Whole Blood 99 mg/dL (60-115)
[2024-10-03 07:22] LABS: Anion Gap 12 (12-20); Blood Urea Nitrogen 62 mg/dL (9-16); Calcium 7.8 mg/dL (8.4-10.2); Carbon Dioxide 16 mmol/L (22-29); Chloride 119 mmol/L (96-108); Creatinine Clr Calc Pharmacy 16.4; Estimated Glomerular Filt Rate 11; Glucose Random 58 mg/dL (60-115); Potassium 5.1 mmol/L (3.3-5.1); Sodium 142 mmol/L (135-145); Vitamin D 25-OH Total 9.9 ng/mL (>30)
[2024-10-03 07:55] LABS: Magnesium 1.9 mg/dL (1.6-2.6); Phosphorus 5.4 mg/dL (2.7-4.5)
[2024-10-03] MEDS: Cholecalciferol (Vitamin D3) 25 MCG TABLET 125 MCG PO (09:12)
[2024-10-03] MEDS: NIFEdipine ER 30 MG TAB.ER.24 90 MG PO (09:12)
[2024-10-03] MEDS: Loratadine 10 MG TABLET PO (09:12)
[2024-10-03] MEDS: ARIPiprazole 2 MG TABLET PO (09:13)
[2024-10-03] MEDS: hydrALAZINE HCl 25 MG TABLET PO ×4 (09:13→21:41)
[2024-10-03] MEDS: Sodium Bicarbonate 650 MG TABLET 1300 MG PO ×2 (09:13→21:41)
[2024-10-03] MEDS: Sertraline HCL 50 MG TABLET PO (09:13)
[2024-10-03] MEDS: calcitrioL 0.25 MCG CAPSULE PO (09:13)
[2024-10-03] MEDS: Sevelamer Carbonate Tablet 800 MG TABLET PO ×3 (09:13→16:17)
[2024-10-03] MEDS: cloNIDine HCL 0.1 MG TABLET PO ×2 (09:13→21:41)
[2024-10-03] MEDS: carvediloL 25 MG TABLET PO ×2 (09:13→21:40)
[2024-10-03] MEDS: buPROPion HCl XL 150 MG TAB.ER.24H PO (09:13)
[2024-10-03] MEDS: Sodium Zirconium Cyclosilicate 10 GM POWD.PACK PO (09:16)
[2024-10-03 11:10] LABS: Glucose, Whole Blood 131 mg/dL (60-115)
--- NOTE | 2024-10-03 15:08 | P.PNIM_ITS ---
Subjective Subjective Date of Service: 10/03/24 Interval History: seen and evaluated this morning feels better Cr stable, acidosis improving making urine no other events Review of Systems Review of Systems: Yes all other systems are reviewed and are negative Physical Exam 2 Vital Signs: Vital Signs: Last Vital Signs Temp 97.1 F 10/03/24 11:36 Pulse 63 10/03/24 11:36 Resp 16 10/03/24 11:36 BP 154/82 H 10/03/24 11:36 Pulse Ox 100 10/03/24 11:36 O2 Del Method Room Air 10/03/24 11:36 BMI result Body Mass Index 34.2 Const: Other: Constitutional : Awake, interactive, not in distress Neck : Normal inspection, Supple Cardiovascular : RRR, no JVP, +1 lower extremity edema Respiratory : good bilateral air entry, fine crackles, wheezes or rhonchi Gastrointestinal: soft, lax, Normal bowel sounds, Non tender Skin : Warm, Dry Neurological : Alert & oriented x3, No focal deficit Objective Data Active Medications Acetaminophen (Acetaminophen 325 Mg Tablet) 650 mg PO Q6H PRN PRN Reason: Pain, Mild 1-3,fever,headache Aripiprazole (Aripiprazole 2 Mg Tablet) 2 mg PO DAILY [facility] Last Admin: 10/03/24 09:13 Dose: 2 mg Documented By: SARAH Atorvastatin Calcium (Atorvastatin Calcium 80 Mg Tablet) 80 mg PO BEDTIME [facility] Last Admin: 10/02/24 20:30 Dose: 80 mg Documented By: LETY Bupropion HCl (Bupropion Hcl Xl 150 Mg Tab.Er.24h) 150 mg PO DAILY [facility] Last Admin: 10/03/24 09:13 Dose: 150 mg Documented By: SARAH Calcitriol (Calcitriol 0.25 Mcg Capsule) 0.25 mcg PO DAILY [facility] Last Admin: 10/03/24 09:13 Dose: 0.25 mcg Documented By: SARAH Calcium Carbonate (Calcium Carbonate 750 Mg Tab.Chew) 750 mg PO Q4H PRN PRN Reason: Heartburn Carvedilol (Carvedilol 25 Mg Tablet) 25 mg PO BID [facility]; Protocol Last Admin: 10/03/24 09:13 Dose: 25 mg Documented By: SARAH Clonidine HCl (Clonidine Hcl 0.1 Mg Tablet) 0.1 mg PO BID [facility]; Protocol Last Admin: 10/03/24 09:13 Dose: 0.1 mg Documented By: SARAH Dextrose (Dextrose 50 % 25 Gm/50 Ml Syringe) 25 gm IVPUSH Q15M PRN; Protocol PRN Reason: per Hypoglycemia Standing Ord. Doxazosin Mesylate (Doxazosin Mesylate 2 Mg Tablet) 2 mg PO BEDTIME [facility]; Protocol Last Admin: 10/02/24 20:31 Dose: 2 mg Documented By: LETY Glucose (Glucose Gel 15 Gm Gel..Gram.) 15 gm PO Q15M PRN; Protocol PRN Reason: per Hypoglycemia Standing Ord. Hydralazine HCl (Hydralazine Hcl 20 Mg/Ml Vial) 20 mg IVPUSH Q6H PRN; Protocol PRN Reason: SBP > 180 Hydralazine HCl (Hydralazine Hcl 25 Mg Tablet) 25 mg PO QID [facility]; Protocol Last Admin: 10/03/24 12:25 Dose: 25 mg Documented By: SARAH Insulin Glargine (Insulin Glargine,Hum.Rec.Anlog 100 Unit/Ml 10 Ml Vial) 6 unit SUBCUT BEDTIME [facility] Insulin Human Lispro (Insulin Lispro 100 Unit/Ml 3 Ml Vial) 0 unit SUBCUT QIDACHS [facility]; Protocol Last Admin: 10/03/24 11:19 Dose: Not Given Documented By: SARAH Non-Admin Reason: No Insulin Coverage Loratadine (Loratadine 10 Mg Tablet) 10 mg PO DAILY [facility] Last Admin: 10/03/24 09:12 Dose: 10 mg Documented By: SARAH Magnesium Hydroxide (Milk Of Magnesia 30 Ml Oral.Susp) 30 ml PO DAILY PRN PRN Reason: Constipation Melatonin (Melatonin 3 Mg Tablet) 6 mg PO BEDTIME PRN PRN Reason: Insomnia Methocarbamol (Methocarbamol 750 Mg Tablet) 750 mg PO Q6H PRN PRN Reason: muscle spasm Mirtazapine (Mirtazapine 15 Mg Tablet) 15 mg PO BEDTIME [facility] Last Admin: 10/02/24 20:30 Dose: 15 mg Documented By: LETY Nifedipine (Nifedipine Er 30 Mg Tab.Er.24) 90 mg PO DAILY [facility]; Protocol Last Admin: 10/03/24 09:12 Dose: 90 mg Documented By: SARAH Ondansetron HCl (Ondansetron Hcl 4 Mg/2 Ml Vial) 4 mg IVPUSH Q8H PRN PRN Reason: Nausea and Vomiting Sertraline HCl (Sertraline Hcl 50 Mg Tablet) 50 mg PO DAILY [facility] Last Admin: 10/03/24 09:13 Dose: 50 mg Documented By: SARAH Sevelamer Carbonate (Sevelamer Carbonate Tablet 800 Mg Tablet) 800 mg PO TIDWM [facility] Last Admin: 10/03/24 12:25 Dose: 800 mg Documented By: SARAH Sodium Bicarbonate (Sodium Bicarbonate 650 Mg Tablet) 1,300 mg PO BID [facility] Last Admin: 10/03/24 09:13 Dose: 1,300 mg Documented By: SARAH Sodium Chloride (0.9 % Sodium Chloride Flush 3 Ml Syringe) 3 ml IVFLUSH QSHIFT [facility] Last Admin: 10/03/24 09:16 Dose: 3 ml Documented By: SARAH Sodium Zirconium Cyclosilicate (Sodium Zirconium Cyclosilicate 10 Gm Powd.Pack) 10 gm PO DAILY [facility] Last Admin: 10/03/24 09:16 Dose: 10 gm Documented By: SARAH Trazodone HCl (Trazodone Hcl 50 Mg Tablet) 50 mg PO BEDTIME [facility] Last Admin: 10/02/24 20:31 Dose: 50 mg Documented By: LETY Vitamin D (Cholecalciferol (Vitamin D3) 25 Mcg Tablet) 125 mcg PO DAILY [facility] Last Admin: 10/03/24 09:12 Dose: 125 mcg Documented By: SARAH Zolpidem Tartrate (Zolpidem Tartrate 5 Mg Tablet) 5 mg PO BEDTIME [facility] Last Admin: 10/02/24 20:30 Dose: 5 mg Documented By: LETY Labs 10/03/24 06:36 10/03/24 06:36 Labs: Laboratory Results - last 24 hr 10/02/24 10/02/24 10/02/24 04:41 16:38 20:26 MCV MCH MCHC RDW Plt Count MPV Absolute Nucleated RBC Nucleated RBC % (auto) Anion Gap Estim Creat Clear Calc Estimated GFR POC Glucose 118 H 114 Random Glucose Calcium Phosphorus Magnesium 25-OH Vitamin D Total PTH Intact Blood Type A Positive Antibody Screen NEGATIVE Crossmatch See Detail 10/03/24 10/03/24 10/03/24 06:36 07:15 11:04 MCV 85.6 MCH 29.0 MCHC 33.9 RDW 16.4 H Plt Count 175 MPV 10.4 Absolute Nucleated RBC 0.000 Nucleated RBC % (auto) 0.0 Anion Gap 12 Estim Creat Clear Calc 16.4 Estimated GFR 11 POC Glucose 99 131 H Random Glucose 58 L* Calcium 7.8 L Phosphorus 5.4 H Magnesium 1.9 25-OH Vitamin D Total 9.9 L PTH Intact 251.3 H Blood Type Antibody Screen Crossmatch Assessment and Plan (1) Metabolic acidosis: Status: Acute (2) Acute kidney injury superimposed on stage 4 chronic kidney disease: Status: Acute (3) Uncontrolled hypertension: Status: Acute Plan This is a 59-year-old male with pertinent history of congestive heart failure with preserved ejection fraction, insulin-dependent diabetes mellitus, obstructive sleep apnea, hypertension, mixed hyperlipidemia, chronic kidney disease who presents to the emergency department for evaluation of weakness and dizziness/lightheadedness. # Acute kidney injury on CKD with non-anion gap metabolic acidosis Cr stable , mildly better 5.5 Acidosis improving Continue Sodium bicarb Add Sevelamir Monitor creatinine and urine output Nephrology following Hold nephrotoxins # Uncontrolled HTN Increase Hydralazine to 25 QID for now Carvedilol 25 mg bid Clonidine 0.1 bid Nifedipine 60ml XL bid # Chronic normocytic anemia due to CKD recieved 1 unit PRBCs, improved Hb to 9.9 monitor H&H # Congestive heart failure with preserved ejection fraction / Hypertension Hold spironolactone, furosemide and lisinopril in the setting of MARII # Mixed hyperlipidemia hold high-intensity statin # Insulin-dependent diabetes mellitus basal plus insulin regimen + SSI # RACHEL CPAP at bedtime, he does not wear it at home. will need outpatient follow up DVT prophylaxis: Mechanical Full code Admit as inpatient and will require overnight hospital stay for monitoring of kidney function, hemodynamic monitoring, monitoring of H&H (as above), which is not possible in a lesser acute setting. Quality Stroke Does the patient have a stroke diagnosis?: No VTE Prior VTE?: No VTE Risk Level:: Medical - moderate - high VTE Device Contraindication: N/A - Device Ordered VTE Drug Contraindication: Treatment Not Indicated
[2024-10-03 15:58] LABS: Glucose, Whole Blood 105 mg/dL (60-115)
[2024-10-03 19:54] LABS: Glucose, Whole Blood 145 mg/dL (60-115)
[2024-10-03] MEDS: Atorvastatin Calcium 80 MG TABLET PO (21:41)
[2024-10-03] MEDS: Doxazosin Mesylate 2 MG TABLET PO (21:41)
[2024-10-03] MEDS: Zolpidem Tartrate 5 MG TABLET PO (21:41)
[2024-10-03] MEDS: Mirtazapine 15 MG TABLET PO (21:42)
[2024-10-03] MEDS: traZODone HCL 50 MG TABLET PO (21:42)
[2024-10-03] MEDS: Insulin Glargine,Hum.rec.anlog 100 UNIT/ML 10 ML VIAL 6 UNIT SUBCUT (21:42)
[2024-10-04] VITALS: BP 134/60; PULSE 69; RESP 17; TEMP 36.4; O2SAT 95
[2024-10-04] MEDS: 0.9 % Sodium Chloride Flush 3 ML SYRINGE IVFLUSH ×2 (00:56→09:58)
[2024-10-04 04:00] VITALS: BP 143/78; PULSE 115; RESP 16; TEMP 37; O2SAT 95
[2024-10-04 04:40] VITALS: PULSE 72; RESP 20; O2SAT 95
[2024-10-04 06:48] LABS: MANUAL DIFF FLAG NO
[2024-10-04 06:52] LABS: Basophils Percent Auto 0.5 % (0-2); Eosinophils Absolute Auto 0.3 X10*3/uL (0.0-0.4); Eosinophils Percent Auto 5.9 % (0-4); Hematocrit 28.6 % (42.0-52.0); Hemoglobin 9.9 g/dl (14.0-18.0); Imm Gran Abs Auto 0.01 X10*3/uL (0.00-0.03); Imm Gran Pct Auto 0.2 % (0.0-0.4); Lymphocytes Absolute Auto 1.1 X10*3/uL (1.2-4.9); Lymphocytes Percent Auto 24.6 % (20-40); Mean Corpuscular HGB Conc 34.6 g/dl (31.0-36.0); Mean Corpuscular Hemoglobin 29.6 pg (27.0-33.0); Mean Corpuscular Volume 85.6 fL (80.0-98.0); Mean Platelet Volume 10.7 fL (9.4-12.4); Monocytes Absolute Auto 0.4 X10*3/uL (0.1-1.2); Monocytes Percent Auto 9.1 % (2-11); Neutrophils Absolute Auto 2.6 x10*3/uL (2.0-8.3); Neutrophils Percent Auto 59.7 % (45-73); Platelet Count 179 X10*3/uL (160-400); Red Blood Count 3.34 X10*6/uL (4.60-5.80); Red Cell Distribution Width 16.2 % (11.0-16.0); White Blood Count 4.3 X10*3/uL (4.8-10.8)
[2024-10-04 07:11] LABS: Anion Gap 12 (12-20); Blood Urea Nitrogen 61 mg/dL (9-16); Calcium 7.7 mg/dL (8.4-10.2); Carbon Dioxide 15 mmol/L (22-29); Chloride 116 mmol/L (96-108); Creatinine Clr Calc Pharmacy 17.5; Estimated Glomerular Filt Rate 12; Glucose Random 69 mg/dL (60-115); Potassium 4.3 mmol/L (3.3-5.1); Sodium 139 mmol/L (135-145)
[2024-10-04 07:25] VITALS: BP 157/92; PULSE 76; RESP 16; TEMP 36.2; O2SAT 98
[2024-10-04 07:47] LABS: Glucose, Whole Blood 67 mg/dL (60-115)
[2024-10-04] MEDS: calcitrioL 0.25 MCG CAPSULE PO (09:26)
[2024-10-04] MEDS: Sevelamer Carbonate Tablet 800 MG TABLET PO ×2 (09:26→11:46)
[2024-10-04] MEDS: Sodium Zirconium Cyclosilicate 10 GM POWD.PACK PO (09:27)
[2024-10-04] MEDS: hydrALAZINE HCl 25 MG TABLET PO ×2 (09:27→11:46)
[2024-10-04] MEDS: Loratadine 10 MG TABLET PO (09:27)
[2024-10-04] MEDS: Sertraline HCL 50 MG TABLET PO (09:27)
[2024-10-04] MEDS: carvediloL 25 MG TABLET PO (09:27)
[2024-10-04] MEDS: ARIPiprazole 2 MG TABLET PO (09:27)
[2024-10-04] MEDS: Sodium Bicarbonate 650 MG TABLET 1300 MG PO (09:27)
[2024-10-04] MEDS: NIFEdipine ER 30 MG TAB.ER.24 90 MG PO (09:27)
[2024-10-04] MEDS: buPROPion HCl XL 150 MG TAB.ER.24H PO (09:27)
[2024-10-04] MEDS: cloNIDine HCL 0.1 MG TABLET PO (09:27)
[2024-10-04] MEDS: Cholecalciferol (Vitamin D3) 25 MCG TABLET 125 MCG PO (09:27)
[2024-10-04 09:53] LABS: Appearance Urine Clear; Color Urine Yellow; Glucose Urine UA 250 mg/dL (Negative); Leukocyte Esterase Urine Trace (Negative); Nitrite Urine Negative (Negative); PH 7.5 (5.0-9.0); Specific Gravity - Urine 1.015 (1.005-1.025); UMIC TRIGGER UACC YES; Urine Blood Negative (Negative); Urine Ketones Negative (Negative); Urine Protein >=1000 (4+) mg/dL (Neg-Trace)
[2024-10-04 09:56] LABS: Bacteria Urine None Seen (None Seen); Hyaline Casts Urine 0-2 /LPF (0-2); RBC Urine 0-2 /HPF (0-2); Squamous Epithelial Cell Urine 0-2 /HPF (0-2); UACC Culture Trigger YES; WBC Urine >50 /HPF (0-5)
[2024-10-04 10:58] LABS: Creatinine Urine 57.47 mg/dL
[2024-10-04 11:00] LABS: Glucose, Whole Blood 210 mg/dL (60-115)
[2024-10-04 11:10] LABS: Protein/Creatinine Ratio, Ur 10.88 (<0.2); Total Protein Urine Random 625 mg/dL (<12)
[2024-10-04 11:19] VITALS: BP 123/68; PULSE 68; RESP 16; TEMP 36.3; O2SAT 98
[2024-10-04] MEDS: Insulin Lispro 100 UNIT/ML 3 ML VIAL SUBCUT (11:46)
--- NOTE | 2024-10-04 12:18 | MHC.CM.PN ---
PT TO DC HOME TODAY WITH NO SERVICES VIA PRIVATE TRANSPORT
--- NOTE | 2024-10-04 12:20 | PM.DS ---
DS: Providers Provider Date of Service: 10/04/24 Date of admission: 10/02/24 05:54 Date of discharge: 10/04/24 Primary care physician: Chris Boucher III, MD Consults: 10/02/24 05:54 Consult to Nephrology Routine Consulting Provider: [facility] [place] Reason for consultation: MARII on CKD DS: Diagnosis Discharge Diagnosis (1) Metabolic acidosis: Status: Acute (2) Acute kidney injury superimposed on stage 4 chronic kidney disease: Status: Acute (3) Uncontrolled hypertension: Status: Acute DS: Summary Hospital Course Hospital Course: Admission note HPI This is a 59-year-old male with pertinent history of congestive heart failure with preserved ejection fraction, insulin-dependent diabetes mellitus, obstructive sleep apnea, hypertension, mixed hyperlipidemia, chronic kidney disease who presents to the emergency department for evaluation of weakness and dizziness/lightheadedness. Patient states he has been feeling unwell for the last 2 days. He was having loose stools for the last few days which has stopped now. Denies blood in stool or black stools. Patient states that 1 day prior to presentation he tried to get up from a seated position when he felt dizzy, lightheaded and fell hitting his head. He did not lose consciousness. States he has been eating and drinking okay and does not have any vomiting. Is compliant with his home medications but states he has too many medications and does not know what medication is for what. Endorses easy fatigability and malaise. No fever, chills, chest pain, palpitations, shortness of breath, abdominal pain, changes in urinary or bowel habits. In the emergency department, creatinine found to be 5.78. Hospital course The patient was monitored and treated for the following: # Acute kidney injury on CKD with non-anion gap metabolic acidosis presenting with Creatinine of 5.78. improved during hospital stay with holding nephrotoxins (Spironolactone, Lisinopril and Lasix) to 5.1 at time of discharge. He was also started on Sodium bicarb 1300 mg bid and Sevelamir for hyperphosphatemia. Calcitriol for vit D def. Creatinine and urine output improved. he was evaluated by nephrology team who recommended outpatient follow up next week. will continue to hold Lisinopril and Spironolactone on discharge and continue with Lasix only for fluid management for lower extremities edema. # Uncontrolled HTN. improved significantly with Increase Hydralazine to 25 QID, Carvedilol 25 mg bid, Clonidine 0.1 bid and Nifedipine 90ml XL daily. To monitor at home and follow with nephrology for further adjustment as outpatient. Hydralazine 25 mg TID instead of his home dose of 10 mg bid. # Chronic normocytic anemia due to CKD. recieved 1 unit PRBCs, improved Hb to 9.9. monitor H&H as outpatient. # Congestive heart failure with preserved ejection fraction / Hypertension. Hold spironolactone, furosemide and lisinopril in the setting of MARII. restarted Lasix for fluid management. # RACHEL. Placed on CPAP at bedtime, he does not wear it at home as he was not able to pay for it. will need outpatient follow up for new sleep study and CPAP order. He was able to ambulate freely on room air with no reported dyspnea or unbalance. Discharge plan Stop Lisinopril and Spironolactone for now Change Hydralazine to 25 mg three time a day for now Take Lokelma, Sevelamir, Calcitriol and Sodium bicarbonate to stablize your electrolytes and acidity To repeat blood test as outpatient Monitor blood pressure at home and report readings to PCP\Nephrology for further adjustments of home medications Watch your weight and legs swelling at home a Follow with Nephrology office as scheduled Time Attestation Discharge Coordination Time (in mins): 48 Quality: Safe Use of Opioids Does Pt have an Active Cancer Diagnosis on the Problem List?: No Quality: Stroke Does the patient have a stroke diagnosis?: No Physical Exam Vital Signs: Vital Signs: Last Vital Signs Temp 97.4 F 10/04/24 11:19 Pulse 68 10/04/24 11:19 Resp 16 10/04/24 11:19 BP 123/68 10/04/24 11:19 Pulse Ox 98 10/04/24 11:19 O2 Del Method Room Air 10/04/24 11:19 BMI result Body Mass Index 34.2 Const: Other: Constitutional : Awake, interactive, not in distress Neck : Normal inspection, Supple Cardiovascular : RRR, no JVP, +1 lower extremity edema Respiratory : good bilateral air entry, no crackles, no wheezes or rhonchi Gastrointestinal: soft, lax, Normal bowel sounds, Non tender Skin : Warm, Dry Neurological : Alert & oriented x3, No focal deficit DS: Data Data Completed and Pending Labs on day of discharge: Laboratory Results - last 24 hr 10/03/24 10/03/24 10/04/24 15:53 19:47 06:09 WBC 4.3 L RBC 3.34 L Hgb 9.9 L Hct 28.6 L MCV 85.6 MCH 29.6 MCHC 34.6 RDW 16.2 H Plt Count 179 MPV 10.7 Immature Gran % (Auto) 0.2 Neut % (Auto) 59.7 Lymph % (Auto) 24.6 [place] % (Auto) 9.1 Eos % (Auto) 5.9 H Baso % (Auto) 0.5 Lymph # (Auto) 1.1 L [place] # (Auto) 0.4 Eos # (Auto) 0.3 Baso # (Auto) 0.0 Abs Immat Gran (auto) 0.01 Absolute Neuts (auto) 2.6 Absolute Nucleated RBC 0.000 Nucleated RBC % (auto) 0.0 Sodium 139 Potassium 4.3 Chloride 116 H Carbon Dioxide 15 L Anion Gap 12 BUN 61 H Creatinine 5.12 H* Estim Creat Clear Calc 17.5 Estimated GFR 12 POC Glucose 105 145 H Random Glucose 69 Calcium 7.7 L Urine Color Urine Appearance Urine pH Ur Specific [place] Urine Protein Urine Glucose (UA) Urine Ketones Urine Blood Urine Nitrite Ur Leukocyte Esterase Urine RBC Urine WBC Ur Squamous Epith Cells Urine Bacteria Hyaline Casts U Random Total Protein Urine Creatinine Protein/Creatinin Ratio 10/04/24 10/04/24 10/04/24 07:22 09:40 10:56 WBC RBC Hgb Hct MCV MCH MCHC RDW Plt Count MPV Immature Gran % (Auto) Neut % (Auto) Lymph % (Auto) [place] % (Auto) Eos % (Auto) Baso % (Auto) Lymph # (Auto) [place] # (Auto) Eos # (Auto) Baso # (Auto) Abs Immat Gran (auto) Absolute Neuts (auto) Absolute Nucleated RBC Nucleated RBC % (auto) Sodium Potassium Chloride Carbon Dioxide Anion Gap BUN Creatinine Estim Creat Clear Calc Estimated GFR POC Glucose 67 210 H Random Glucose Calcium Urine Color Yellow Urine Appearance Clear Urine pH 7.5 Ur Specific [place] 1.015 Urine Protein >=1000 (4+) H Urine Glucose (UA) 250 H Urine Ketones Negative Urine Blood Negative Urine Nitrite Negative Ur Leukocyte Esterase Trace H Urine RBC 0-2 Urine WBC >50 H Ur Squamous Epith Cells 0-2 Urine Bacteria None Seen Hyaline Casts 0-2 U Random Total Protein 625 H Urine Creatinine 57.47 Protein/Creatinin Ratio 10.88 H Imaging Chest x-ray: Radiologist's impression: IMPRESSION: 1. No acute intracranial findings. This document has been electronically signed by: Rosi Robles MD on 10/02/2024 05:52:30 Discharge Plan Discharge Anticipated Discharge Date/Time: 10/04/24 12:07 Patient Disposition: Home, Self-Care Discharge Diagnosis: Acute on chronic kidney disease Uncontrolled hypertension Vit D deficiency Anemia Referrals: Chris Boucher III, MD [Primary Care Provider] - 1 Week Discharge Medications: New hydralazine 25 mg Tablet 25 mg PO TID Qty: 90 0RF Protocol: Hold for SBP< HOLD for SBP < : 90 sevelamer carbonate 800 mg Tablet 800 mg PO TIDWM Qty: 90 0RF Lokelma 10 gram Powder In Packet 10 g PO DAILY Qty: 30 0RF sodium bicarbonate 650 mg Tablet 1,300 mg PO BID Qty: 120 0RF calcitriol 0.25 mcg Capsule 0.25 mcg PO DAILY Qty: 90 0RF Continued (DME) blood pressure monitor [Blood Pressure Kit] Kit See Rx Instructions .ROUTE .MEDSUPPLY Qty: 1 0RF Rx Instructions: As directed carvedilol 25 mg tablet 25 mg PO BID Qty: 180 1RF Protocol: Hold for SBP/HR < HOLD for SBP < : 90 HOLD for HR < : 60 furosemide 20 mg tablet 20 mg PO DAILY Qty: 90 3RF dapagliflozin propanediol 5 mg tablet 5 mg PO DAILY atorvastatin 80 mg tablet 80 mg PO BEDTIME clonidine HCl 0.1 mg tablet 0.1 mg PO BID trazodone 50 mg tablet 50 mg PO BEDTIME mirtazapine 15 mg tablet 15 mg PO BEDTIME zolpidem 10 mg tablet 10 mg PO BEDTIME sertraline 50 mg tablet 50 mg PO DAILY doxazosin 2 mg tablet 2 mg PO BEDTIME bupropion HCl 150 mg tablet extended release 24 hr 150 mg PO DAILY aripiprazole 2 mg tablet 2 mg PO DAILY insulin glargine 100 unit/mL solution 10 unit subcut BEDTIME leflunomide 10 mg tablet 10 mg PO DAILY methocarbamol 750 mg tablet 750 mg PO Q6H PRN (Reason: muscle spasm) cholecalciferol (vitamin D3) [Vitamin D3] 125 mcg (5,000 unit) Tablet 125 mcg PO DAILY nifedipine 30 mg tablet extended release 24hr 90 mg PO DAILY Protocol: Hold for SBP< HOLD for SBP < : 90 Held spironolactone 25 mg tablet 25 mg PO DAILY Qty: 90 3RF Hold Instructions: Discuss with nephrology if needed to be restarted loratadine 10 mg Tablet 10 mg PO DAILY Hold Instructions: Hold and monitor if needed. Use only as needed. it causes sedation. Discontinued lisinopril 40 mg tablet 40 mg PO DAILY Qty: 90 3RF hydralazine 10 mg tablet 10 mg PO BID Discharge Orders: Discharge Order (Routine); Ordered 10/04/24 Ordered By: Maryann Jo Diet: Diabetic diet Activity on Discharge: As tolerated Stand Alone Forms: Patient Portal Discharge page Print Language: Persian Other Ambulatory Orders: Basic Metabolic Panel (Routine) Timeframe: 4 Days Facility: [facility] - Location: Laboratory Ordered By: Maryann Jo Complete Blood Count Auto Diff (Routine) Timeframe: 4 Days Facility: [facility] - Location: Laboratory Ordered By: Maryann Jo Care Plan Goals: Stop Lisinopril and Spironolactone for now Change Hydralazine to 25 mg three time a day for now Take Lokelma, Sevelamir, Calcitriol and Sodium bicarbonate to stablize your electrolytes and acidity To repeat blood test as outpatient Monitor blood pressure at home and report readings to PCP\Nephrology for further adjustments of home medications Watch your weight and legs swelling at home a Follow with Nephrology office as scheduled Health Concerns: Worsening kidney function Uncontrolled hypertension Plan of Treatment: Follow with Nephrology Hydralazine for blood pressure Assessment: as above
[2024-10-04] MEDS: Furosemide 20 MG TABLET PO (13:02)
[2024-10-07 05:08] LABS: IgA 228 mg/dL (70-320); IgG 945 mg/dL (600-1540); IgM 131 mg/dL (50-300)
== END 2024-10-04 14:12 | disposition home or self-care (01) | DRG 469 ==
LOC: HO.ED 10-02 05:52 → HO.EDOVER 10-02 05:58 → HO.IMC 10-02 07:21
PROVIDERS: Internal Medicine Nephrology; Admitting Provider Student in an Organized Health Care Education/Training Program; Emergency Provider Emergency Medicine; PCP Internal Medicine; Visit Provider Student in an Organized Health Care Education/Training Program
DX: N17.9 Acute kidney failure, unspecified (principal); I13.0 Hypertensive heart and chronic kidney disease with heart failure and stage 1 through stage 4 chronic kidney disease, or unspecified chronic kidney disease; D63.1 Anemia in chronic kidney disease; E11.22 Type 2 diabetes mellitus with diabetic chronic kidney disease; I50.32 Chronic diastolic (congestive) heart failure; G47.33 Obstructive sleep apnea (adult) (pediatric); E83.39 Other disorders of phosphorus metabolism; N18.4 Chronic kidney disease, stage 4 (severe); E78.2 Mixed hyperlipidemia; Z87.891 Personal history of nicotine dependence; Z79.4 Long term (current) use of insulin; Z79.899 Other long term (current) drug therapy
CPT/HCPCS: 36415; 70450; 80048; 80053; 81001; 82272; 82306; 82570; 82607; 82746; 82784; 82947; 83540; 83735; 83970; 84100; 84156; 84484; 85025; 85027; 86334; 86850; 86900; 86901; 86923; 87086; 93005; 94660; 99285; J0360; J7120; P9016

== ENCOUNTER → 2024-10-01 | Outpatient (BNV) | payer OTHER, SELFPAY | PROVIDERS: Admitting Provider Student in an Organized Health Care Education/Training Program; Emergency Provider Emergency Medicine; PCP Internal Medicine; Visit Provider Internal Medicine Cardiovascular Disease | DX: R00.1 Bradycardia, unspecified (principal) | CPT/HCPCS: 93010 ==

== ENCOUNTER → 2024-10-02 05:00 | Outpatient (BNV) | payer OTHER, SELFPAY | PROVIDERS: Admitting Provider Student in an Organized Health Care Education/Training Program; Emergency Provider Emergency Medicine; PCP Internal Medicine; Visit Provider Radiology Diagnostic Radiology | DX: I10 Essential (primary) hypertension (principal); W19.XXXA Unspecified fall, initial encounter | CPT/HCPCS: 70450 ==

== ENCOUNTER → 2024-10-02 05:54 | Outpatient (BNV) | payer OTHER, SELFPAY | PROVIDERS: Admitting Provider Student in an Organized Health Care Education/Training Program; Emergency Provider Emergency Medicine; PCP Internal Medicine; Visit Provider Student in an Organized Health Care Education/Training Program | DX: N17.9 Acute kidney failure, unspecified (principal); I12.9 Hypertensive chronic kidney disease with stage 1 through stage 4 chronic kidney disease, or unspecified chronic kidney disease; N18.4 Chronic kidney disease, stage 4 (severe); E87.20 Acidosis, unspecified | CPT/HCPCS: 99223; 99233; 99239 ==

== ENCOUNTER → 2024-10-02 05:54 | Outpatient (BNV) | payer OTHER, SELFPAY | PROVIDERS: Admitting Provider Student in an Organized Health Care Education/Training Program; Emergency Provider Emergency Medicine; PCP Internal Medicine; Visit Provider Internal Medicine Nephrology | DX: N17.0 Acute kidney failure with tubular necrosis (principal); N18.4 Chronic kidney disease, stage 4 (severe); E87.20 Acidosis, unspecified | CPT/HCPCS: 99223 ==

== ENCOUNTER 2024-10-21 18:40 | Inpatient (IN) | payer OTHER, SELFPAY ==
--- NOTE | ~2024-10-21 | US_ITS ---
CLINICAL HISTORY: MARII vs progression of CKD US Renal Comparison: None Findings: Right kidney normal size and echotexture, 11.1 cm length. Left kidney normal size and echotexture, 11.8 cm length. There is trace right perirenal free fluid adjacent to the inferior pole and/or small renal cyst No collecting system dilatation of either kidney. Normal color Doppler. IMPRESSION: No hydronephrosis normal renal echogenicity no renal mass lesions Trace free fluid inferior to the right kidney and/or small renal cyst This document has been electronically signed by: Kee Ravi MD on 10/23/2024 08:40:51
--- NOTE | ~2024-10-21 | XR_ITS ---
CLINICAL HISTORY: sob. pedal edema 2 view chest x-ray Comparison: CR/DC/SR - XR CHEST 1V - 08/05/23 13:30 EST Findings: The lungs are clear. Heart size is normal. No acute fracture. IMPRESSION: 1. No acute findings. This document has been electronically signed by: William Mitchell MD on 10/21/2024 19:49:17
--- NOTE | 2024-10-21 18:44 | ECG_ITS ---
Test Reason : TACHYACRDIA Blood Pressure : */* mmHG Vent. Rate : 70 BPM Atrial Rate : 70 BPM P-R Int : 186 ms QRS Dur : 88 ms QT Int : 408 ms P-R-T Axes : 33 23 72 degrees QTcB Int : 440 ms Normal sinus rhythm Cannot rule out Anterior infarct , age undetermined Abnormal ECG When compared with ECG of 02-Oct-2024 02:36, No significant change was found Referred By: Sendy Hollingsworth Electronically Signed By: JAMES LUJAN
[2024-10-21 18:58] VITALS: BP 197/95; PULSE 71; RESP 18; TEMP 36.2; O2SAT 97; BMI 36.5
--- NOTE | 2024-10-21 18:58 | ED.ARRPALP ---
HPI - Arrhythmia/Palpitations General Chief Complaint: Dyspnea Stated Complaint: rapid heart rate, sweating Time Seen by Provider: 10/21/24 22:27 History of Present Illness ED Provider: Chula GARDNER narrative: The patient is a 59-year-old male with a history of chronic congestive heart failure and significant renal impairment who was recently hospitalized at this hospital. He was hospitalized on October 02 and discharged on October 04, about 2-1/2 weeks ago. During that hospitalization the patient has been found to have a significantly higher creatinine than previously. During that hospitalization his lisinopril was stopped. His hydralazine was increased from 10 mg b.i.d. to 25 mg t.i.d.. Additionally he was started on Lokelma, oral sodium bicarb, and calcitriol. He was also started on sevelamer. the patient returns to the hospital today because he has had increasing body swelling over the last 5 days. He notes that his legs and arms are both swollen and he also feels that he has swelling in his trunk as well. Minimal facial swelling. He has had dyspnea on exertion. He has had no chest pain. His blood pressures has been running high. He feels that he might have gained as much as 20 lb since leaving the hospital. Related Data Home Medications ?Medication ?Instructions ?Recorded ?Confirmed atorvastatin 80 mg tablet 80 mg PO BEDTIME 08/05/23 10/02/24 nifedipine 30 mg tablet,extended 90 mg PO DAILY 11/20/23 10/02/24 release 24 hr dapagliflozin propanediol 5 mg 5 mg PO DAILY 08/25/24 10/02/24 tablet aripiprazole 2 mg tablet 2 mg PO DAILY 10/02/24 10/02/24 bupropion HCl 150 mg 24 hr tablet, 150 mg PO DAILY 10/02/24 10/02/24 extended release cholecalciferol (vitamin D3) 125 125 mcg PO DAILY 10/02/24 10/02/24 mcg (5,000 unit) tablet (Vitamin D3) clonidine HCl 0.1 mg tablet 0.1 mg PO BID 10/02/24 10/02/24 doxazosin 2 mg tablet 2 mg PO BEDTIME 10/02/24 10/02/24 insulin glargine 100 unit/mL 10 unit subcut BEDTIME 10/02/24 10/02/24 subcutaneous solution leflunomide 10 mg tablet 10 mg PO DAILY 10/02/24 loratadine 10 mg tablet 10 mg PO DAILY 10/02/24 10/02/24 methocarbamol 750 mg tablet 750 mg PO Q6H PRN muscle spasm 10/02/24 10/02/24 mirtazapine 15 mg tablet 15 mg PO BEDTIME 10/02/24 10/02/24 sertraline 50 mg tablet 50 mg PO DAILY 10/02/24 10/02/24 trazodone 50 mg tablet 50 mg PO BEDTIME 10/02/24 10/02/24 zolpidem 10 mg tablet 10 mg PO BEDTIME 10/02/24 10/02/24 Previous Rx's ?Medication ?Instructions ?Recorded blood pressure monitor (Blood #1 ea 01/31/24 Pressure Kit) carvedilol 25 mg tablet 25 mg PO BID #180 tabs 04/29/24 furosemide 20 mg tablet 20 mg PO DAILY #90 tabs 07/28/24 spironolactone 25 mg tablet 25 mg PO DAILY #90 tabs 09/23/24 calcitriol 0.25 mcg capsule 0.25 mcg PO DAILY #90 caps 10/04/24 hydralazine 25 mg tablet 25 mg PO TID #90 tabs 10/04/24 sevelamer carbonate 800 mg tablet 800 mg PO TIDWM #90 tabs 10/04/24 sodium bicarbonate 650 mg tablet 1,300 mg (2 x 650 mg) PO BID #120 10/04/24 tabs sodium zirconium cyclosilicate 10 10 g PO DAILY #30 ea 10/04/24 gram oral powder packet (Lokelma) Allergies Allergy/AdvReac Type Severity Reaction Status Date / Time No Known Allergies Allergy Verified 10/21/24 19:00 [facility] Past Medical History Medical History (Updated 10/21/24 @ 23:56 by Samuel Quiros MD) Chronic HFrEF (heart failure with reduced ejection fraction) Anemia RACHEL (obstructive sleep apnea) Heart failure Hypercholesterolemia Hypertension Diabetes Social History Social History Household Members: Family Household Members Other:: grandson Housing: House Do you presently have visiting nurse or other home services: No Alcohol intake: never Patient Tobacco Use Status: Former Tobacco user Tobacco use type: Cigarette Smoked in Last 30 Days: No Second Hand Smoke Exposure: No Use of substances other than those prescribed or required for medical reasons: No Advance Directives: Yes Advance Directives on File: Yes Advance Directives Date on File: 08/08/23 Do you have a plan to hurt others: No Plan service: No Physical Exam Vital Signs: Vital Signs: Last Vital Signs Temp 98.0 F 10/22/24 01:25 Pulse 70 10/22/24 02:00 Resp 20 10/22/24 02:00 BP 182/90 H 10/22/24 02:00 Pulse Ox 98 10/22/24 01:25 O2 Del Method CPAP 10/22/24 01:25 BMI result Body Mass Index 35.5 Const: Other: The patient is a 59-year-old man who was awake and alert. He does not appear in acute pain or respiratory difficulty. HEENT: Other: The appearance of the face is unremarkable. No significant facial edema. The face is symmetrical. Mucous membranes are moist. The posterior pharynx is unremarkable. Eyes: General: appearance normal, both eyes and all related structures Neck: Other: No significant neck swelling. Moving his neck easily. Resp: Other: No increased work of breathing. Breath sounds are clear bilaterally. No definite crackles. Cardio: Rate: regular rate Rhythm: regular rhythm Heart sounds: S1 normal heart sound present and S2 normal heart sound present GI: Other: The patient seems to have some edema to the skin of the abdominal wall. The abdomen is otherwise soft and nontender. Skin: Other: The patient has a edema to the legs and to the arms and hands as well as to the trunk. Neuro: Other: The patient is awake and alert with a normal mental status. Cranial nerves are grossly intact. He moves his extremities symmetrically and appropriately. Extrem: Other: The patient has edema of the upper and lower extremities. Edema is pitting. Course Course Course Narrative: This is a Rapid Medical Exam performed in triage by Sendy Hollingsworth PA-C. Full HPI, ROS and PE to be performed by primary ED provider. 59 yo M w/PMHx DM, RACHEL, HTN, CHF presenting to the ED c/o pedal edema, HTN (206 - systolic), SOB x few days. Told by [facility] to come to ED. denies CP PE: +b/l LE edema, talking in complete sentences Plan: EKG, labs, CXR, SARs Medications Administered Generic Name Dose Route Start Last Admin Trade Name Freq PRN Reason Stop Dose Admin Heparin Sodium (Porcine) 5,000 unit 10/21/24 23:30 10/22/24 00:36 Heparin Sodium,Porcine 5,000 Unit/Ml Vial SUBCUT 5,000 unit Q8H SWETHA Administration Furosemide 200 mg/ Sodium 100 mls @ 2.5 mls/hr 10/21/24 23:45 10/22/24 00:25 Chloride IVCONT 5 mg/hr .Q24H SWETHA 2.5 mls/hr Administration 5 MG/HR Sodium Chloride 3 ml 10/22/24 00:00 10/22/24 00:25 0.9 % Sodium Chloride Flush 3 Ml Syringe IVFLUSH 3 ml QSHIFT SWETHA Administration Discontinued Medications Generic Name Dose Route Start Last Admin Trade Name Freq PRN Reason Stop Dose Admin Furosemide 80 mg 10/21/24 23:28 10/21/24 23:41 Furosemide 100 Mg/10 Ml Vial IVPUSH 10/21/24 23:29 80 mg ONCE ONE Administration Protocol Albumin Human 50 mls @ 100 mls/hr 10/21/24 23:00 10/21/24 23:57 Kedbumin 25 % IV 10/21/24 23:59 Infused Q30M SWETHA Infusion Nitroglycerin 1 inch 10/21/24 22:50 10/21/24 23:05 Nitroglycerin 2 % Oint 1 Gm Packet TRANSDERMA 10/21/24 22:51 1 inch ONCE ONE Administration Nitroglycerin 1 inch 10/21/24 23:55 10/22/24 00:24 Nitroglycerin 2 % Oint 1 Gm Packet TRANSDERMA 10/21/24 23:56 1 inch ONCE ONE Administration Medical Decision Making Medical Decision Making [facility] Narrative: The patient is a 59-year-old male with a history of known heart failure who also has significant renal impairment. The patient was hospitalized a few weeks ago for an acute kidney injury. The patient now has developed significant anasarca over the last week or so. He denies any symptoms that account for the onset of this change. He denies any chest pain. No infectious symptoms. On exam he has rather impressive edema of both his legs and his arms and hands. His lungs sound clear however. I do not think he has any significant facial edema. The patient is heart rate was unremarkable. He was hypertensive. Oxygen saturations were good. Given the patient's degree of anasarca I felt he would need to be hospitalized. He was given nitroglycerin paste for his high blood pressure readings. his albumin level was low. In case his low albumin level is in any way related to his worsening anasarca he was given IV albumin. I discussed the case with the hospitalist and the patient will be admitted. Furosemide was also started. Lab Data 10/21/24 19:17 10/21/24 19:17 Labs: Lab Results 10/21/24 10/21/24 Range/Units 19:17 21:26 WBC 3.8 L (4.8-10.8) X10*3/uL RBC 2.45 L D (4.60-5.80) X10*6/uL Hgb 7.2 L D (14.0-18.0) g/dl Hct 21.5 L D (42.0-52.0) % MCV 87.8 (80.0-98.0) fL MCH 29.4 (27.0-33.0) pg MCHC 33.5 (31.0-36.0) g/dl RDW 15.6 (11.0-16.0) % Plt Count 119 L D (160-400) X10*3/uL MPV 10.1 (9.4-12.4) fL Immature Gran % (Auto) 0.3 (0.0-0.4) % Neut % (Auto) 58.0 (45-73) % Lymph % (Auto) 26.9 (20-40) % [place] % (Auto) 7.9 (2-11) % Eos % (Auto) 6.6 H (0-4) % Baso % (Auto) 0.3 (0-2) % Lymph # (Auto) 1.0 L (1.2-4.9) X10*3/uL [place] # (Auto) 0.3 (0.1-1.2) X10*3/uL Eos # (Auto) 0.3 (0.0-0.4) X10*3/uL Baso # (Auto) 0.0 (0.0-0.2) X10*3/uL Abs Immat Gran (auto) 0.01 (0.00-0.03) X10*3/uL Absolute Neuts (auto) 2.2 (2.0-8.3) x10*3/uL Absolute Nucleated RBC 0.000 (0.0-0.012) X10*3/uL Nucleated RBC % (auto) 0.0 (0.0-0.2) /100WBC Sodium 138 (135-145) mmol/L Potassium 4.9 (3.3-5.1) mmol/L Chloride 115 H (96-108) mmol/L Carbon Dioxide 18 L (22-29) mmol/L Anion Gap 10 L (12-20) BUN 75 H (9-16) mg/dL Creatinine 5.39 H* (0.5-1.4) mg/dL Estim Creat Clear Calc 17.2 Estimated GFR 11 Random Glucose 137 H (60-115) mg/dL Calcium 7.7 L (8.4-10.2) mg/dL Magnesium 1.8 (1.6-2.6) mg/dL Total Bilirubin 0.2 (0.0-1.0) mg/dL Direct Bilirubin < 0.2 (0.0-0.5) mg/dL AST 37 (5-37) U/L ALT 34 (0-40) U/L Alkaline Phosphatase 123 H (39-117) U/L Troponin I High Sens 7.5 8.8 (<3.5-35.0) ng/L B-Natriuretic Peptide 585 H (<100) pg/mL Total Protein 5.2 L (6.5-8.0) g/dL Albumin 2.5 L (3.5-5.0) g/dL Influenza Type A (PCR) NEGATIVE (Negative) Influenza Type B (PCR) NEGATIVE (Negative) RSV RNA Qual (PCR) NEGATIVE (Negative) SARS-CoV-2 RNA (RT-PCR) NEGATIVE (Negative) Discharge Plan Discharge Clinical Impression: Anasarca, Congestive heart failure, Chronic kidney disease Patient Disposition: Admitted As Inpatient
[2024-10-21 19:22] LABS: Basophils Percent Auto 0.3 % (0-2); Eosinophils Absolute Auto 0.3 X10*3/uL (0.0-0.4); Eosinophils Percent Auto 6.6 % (0-4); Hematocrit 21.5 % (42.0-52.0); Hemoglobin 7.2 g/dl (14.0-18.0); Imm Gran Abs Auto 0.01 X10*3/uL (0.00-0.03); Imm Gran Pct Auto 0.3 % (0.0-0.4); Lymphocytes Percent Auto 26.9 % (20-40); MANUAL DIFF FLAG NO; Mean Corpuscular HGB Conc 33.5 g/dl (31.0-36.0); Mean Corpuscular Hemoglobin 29.4 pg (27.0-33.0); Mean Corpuscular Volume 87.8 fL (80.0-98.0); Mean Platelet Volume 10.1 fL (9.4-12.4); Monocytes Absolute Auto 0.3 X10*3/uL (0.1-1.2); Monocytes Percent Auto 7.9 % (2-11); Neutrophils Absolute Auto 2.2 x10*3/uL (2.0-8.3); Platelet Count 119 X10*3/uL (160-400); Red Blood Count 2.45 X10*6/uL (4.60-5.80); Red Cell Distribution Width 15.6 % (11.0-16.0); White Blood Count 3.8 X10*3/uL (4.8-10.8)
[2024-10-21 19:42] LABS: Alanine Aminotransferase 34 U/L (0-40); Albumin Level 2.5 g/dL (3.5-5.0); Alkaline Phosphatase 123 U/L (39-117); Anion Gap 10 (12-20); Aspartate Amino Transferase 37 U/L (5-37); Bilirubin Direct < 0.2 mg/dL (0.0-0.5); Bilirubin Total 0.2 mg/dL (0.0-1.0); Blood Urea Nitrogen 75 mg/dL (9-16); Calcium 7.7 mg/dL (8.4-10.2); Carbon Dioxide 18 mmol/L (22-29); Chloride 115 mmol/L (96-108); Creatinine Clr Calc Pharmacy 17.2; Estimated Glomerular Filt Rate 11; Glucose Random 137 mg/dL (60-115); Magnesium 1.8 mg/dL (1.6-2.6); Potassium 4.9 mmol/L (3.3-5.1); Sodium 138 mmol/L (135-145); Total Protein 5.2 g/dL (6.5-8.0)
[2024-10-21 19:43] LABS: B Type Natriuretic Peptide 585 pg/mL (<100)
[2024-10-21 19:44] LABS: Troponin-I High Sensitivity 7.5 ng/L (<3.5-35.0)
[2024-10-21 20:00] LABS: Influenza A PCR NEGATIVE (Negative); Influenza B PCR NEGATIVE (Negative); Resp Syncy Virus RNA Qual PCR NEGATIVE (Negative); SARS COV2 PCR INHOUSE NEGATIVE (Negative)
[2024-10-21 21:22] VITALS: BP 216/101; PULSE 68; RESP 16; TEMP 36.6; O2SAT 98
--- NOTE | 2024-10-21 21:36 | PC.NURSE ---
translator/interpreter at bedside. pt a&ox4, respirations even and unlabored but pt reports shortness of breath on exertion, bilateral hand swelling and bilateral leg swelling. pt noted to have 2+ pitting edema to x4 extremities but cms is in tact. pt reports he does take a water pill daily. 20G placed in left ac. pt noted to be hypertensive on monitor and pt nsr on tele.
[2024-10-21 21:51] LABS: Troponin-I High Sensitivity 8.8 ng/L (<3.5-35.0)
[2024-10-21 22:00] VITALS: BP 209/101; PULSE 74; RESP 17; TEMP 36.3; O2SAT 98
[2024-10-21 22:39] VITALS: BMI 35.5
[2024-10-21 23:05] VITALS: BP 225/107; PULSE 72
[2024-10-21] MEDS: Nitroglycerin 2 % Oint 1 GM Packet 1 INCH TRANSDERMA (23:05)
[2024-10-21] MEDS: Albumin Human 25 % 50 ML 100 ML IV ×2 (23:06→23:26)
[2024-10-21 23:27] VITALS: BP 216/101; PULSE 73
--- NOTE | 2024-10-21 23:36 | PM.IMHP ---
History of Present Illness Date of Service: 10/21/24 Attending physician on admission: Josue George Chief Complaint: SOB, edema Patient is a 59-year-old male with a past medical history significant for RACHEL on CPAP, HFrEF (echo 09/08 EF 45-50%), IDDM, HTN, mixed hyperlipidemia, CKD5, who presented to the ED due to bilateral upper extremity and lower extremity edema with shortness of breath, orthopnea and dyspnea on exertion for the past week. He also reports hypertension with systolic around to 0 6 at home. He denies any chest pain, fever, chills, nausea or vomiting. He also reports a weight gain of about 20 lb. He has had some recent medication changes due to his chronic kidney disease, mostly to help with electrolyte imbalances. He reports that he is not on dialysis but it has been discussed they will likely happen in the future. He is also followed by Dr. Willett for his CHF and hypertension. he reports very small less frequent urination recently. Review of Systems Constitutional: Constitutional: Denies body ache(s), Denies chills, Reports fatigue, Denies fever(s) and Denies headache(s) Eyes: Eyes: Denies change in vision and Denies photophobia ENT: Denies headache(s), Denies nasal congestion, Denies nasal discharge and Denies sore throat Cardiovascular: Cardiovascular: Denies chest pain, Denies rapid heart rate, Reports leg edema, Denies lightheadedness and Reports dyspnea Respiratory: Respiratory: Denies chest congestion, Denies cough, Reports dyspnea and Denies wheezing Gastrointestinal: Gastrointestinal: Denies abdominal pain, Denies diarrhea, Denies nausea and Denies vomiting Genitourinary: Genitourinary: Reports oliguria and Denies urinary urgency Musculoskeletal: Musculoskeletal: Denies myalgias Integumentary/Breasts: Skin/Breast: Denies rash Neurologic: Denies confusion and Denies headache(s) Psychiatric: Psychiatric: Denies confusion Endocrine: Endocrine: Reports fatigue Hematologic/Lymphatic: Hematologic/Lymphatic: Denies easy bleeding and Denies easy bruising Allergic/Immunologic: Allergic/Immunologic: Denies wheezing [facility] Medical History (Updated 10/21/24 @ 23:56 by Samuel Quiros MD) Chronic HFrEF (heart failure with reduced ejection fraction) Anemia RACHEL (obstructive sleep apnea) Heart failure Hypercholesterolemia Hypertension Diabetes Functional capacity: independent ambulation Social History Household Members: Family Household Members Other:: grandson Housing: House Do you presently have visiting nurse or other home services: No Alcohol intake: never Patient Tobacco Use Status: Former Tobacco user Tobacco use type: Cigarette Smoked in Last 30 Days: No Second Hand Smoke Exposure: No Use of substances other than those prescribed or required for medical reasons: No Advance Directives: Yes Advance Directives on File: Yes Advance Directives Date on File: 08/08/23 Do you have a plan to hurt others: No Plan service: No Narrative: No smoking, alcohol or drug use Meds Allergies Allergy/AdvReac Type Severity Reaction Status Date / Time No Known Allergies Allergy Verified 10/21/24 19:00 Active Medications: Current Medications Acetaminophen (Acetaminophen 325 Mg Tablet) 975 mg PO Q6H PRN PRN Reason: Pain, Mild 1-3,fever,headache Calcium Carbonate (Calcium Carbonate 750 Mg Tab.Chew) 750 mg PO Q4H PRN PRN Reason: Heartburn Dextrose (Dextrose 50 % 25 Gm/50 Ml Syringe) 25 gm IVPUSH Q15M PRN; Protocol PRN Reason: per Hypoglycemia Standing Ord. Glucose (Glucose Gel 15 Gm Gel..Gram.) 15 gm PO Q15M PRN; Protocol PRN Reason: per Hypoglycemia Standing Ord. Heparin Sodium (Porcine) (Heparin Sodium,Porcine 5,000 Unit/Ml Vial) 5,000 unit SUBCUT Q8H SWETHA Albumin Human (Kedbumin 25 %) 50 mls @ 100 mls/hr IV Q30M [facility] Stop: 10/21/24 23:59 Last Admin: 10/21/24 23:26 Dose: 100 mls/hr Insulin Glargine (Insulin Glargine,Hum.Rec.Anlog 100 Unit/Ml 10 Ml Vial) 6 unit SUBCUT BEDTIME SWETHA Insulin Human Lispro (Insulin Lispro 100 Unit/Ml 3 Ml Vial) 0 unit SUBCUT QIDACHS [facility]; Protocol Magnesium Hydroxide (Milk Of Magnesia 30 Ml Oral.Susp) 30 ml PO DAILY PRN PRN Reason: Constipation Melatonin (Melatonin 3 Mg Tablet) 6 mg PO BEDTIME PRN PRN Reason: Insomnia Ondansetron HCl (Ondansetron Hcl 4 Mg/2 Ml Vial) 4 mg IVPUSH Q8H PRN PRN Reason: Nausea and Vomiting Sodium Chloride (0.9 % Sodium Chloride Flush 3 Ml Syringe) [facility] Medications ?Medication ?Instructions ?Recorded ?Confirmed ?Last Taken ?Type atorvastatin 80 mg tablet 80 mg PO BEDTIME 08/05/23 10/02/24 3 Weeks Ago History ~09/11/24 nifedipine 30 mg tablet,extended 90 mg PO DAILY 11/20/23 10/02/24 3 Weeks Ago History release 24 hr ~09/11/24 dapagliflozin propanediol 5 mg 5 mg PO DAILY 08/25/24 10/02/24 3 Weeks Ago History tablet ~09/11/24 aripiprazole 2 mg tablet 2 mg PO DAILY 10/02/24 10/02/24 3 Weeks Ago History ~09/11/24 bupropion HCl 150 mg 24 hr tablet, 150 mg PO DAILY 10/02/24 10/02/24 Unknown History extended release cholecalciferol (vitamin D3) 125 125 mcg PO DAILY 10/02/24 10/02/24 3 Weeks Ago History mcg (5,000 unit) tablet (Vitamin ~09/11/24 D3) clonidine HCl 0.1 mg tablet 0.1 mg PO BID 10/02/24 10/02/24 Unknown History doxazosin 2 mg tablet 2 mg PO BEDTIME 10/02/24 10/02/24 Unknown History insulin glargine 100 unit/mL 10 unit subcut BEDTIME 10/02/24 10/02/24 3 Weeks Ago History subcutaneous solution ~09/11/24 leflunomide 10 mg tablet 10 mg PO DAILY 10/02/24 3 Weeks Ago History ~09/11/24 loratadine 10 mg tablet 10 mg PO DAILY 10/02/24 10/02/24 3 Weeks Ago History ~09/11/24 methocarbamol 750 mg tablet 750 mg PO Q6H PRN muscle spasm 10/02/24 10/02/24 3 Weeks Ago History ~09/11/24 mirtazapine 15 mg tablet 15 mg PO BEDTIME 10/02/24 10/02/24 3 Weeks Ago History ~09/11/24 sertraline 50 mg tablet 50 mg PO DAILY 10/02/24 10/02/24 Unknown History trazodone 50 mg tablet 50 mg PO BEDTIME 10/02/24 10/02/24 Unknown History zolpidem 10 mg tablet 10 mg PO BEDTIME 10/02/24 10/02/24 3 Weeks Ago History ~09/11/24 Physical Exam Vital Signs and Narrative: Vital Signs: Last Vital Signs Temp 97.3 F 10/21/24 22:00 Pulse 73 10/21/24 23:27 Resp 17 10/21/24 22:00 BP 216/101 H 10/21/24 23:27 Pulse Ox 98 10/21/24 22:00 O2 Del Method Room Air 10/21/24 22:00 BMI result Body Mass Index 35.5 General: AOx3, no acute distress Resp: CTA bilaterally, no wheezing or crackles CVS: S1, S2, RRR GI: +BS, NT, distended Skin: Warm, dry Neuro: Cranial nerves II-XII grossly intact bilaterally. Motor grossly intact bilaterally Extremities: 2+ pitting edema. edematous upper extremities, non-pitting Psych: Appropriate affect Const: General: No confusion Orientation/consciousness: No confusion Eyes: Direct Ophthalmoscopy: No photophobia Neuro: General: No confusion Results Labs 10/21/24 19:17 10/21/24 19:17 Labs: Laboratory Results - last 24 hr 10/21/24 19:17 MCV 87.8 MCH 29.4 MCHC 33.5 RDW 15.6 Plt Count 119 L D MPV 10.1 Immature Gran % (Auto) 0.3 Neut % (Auto) 58.0 Lymph % (Auto) 26.9 [place] % (Auto) 7.9 Eos % (Auto) 6.6 H Baso % (Auto) 0.3 Lymph # (Auto) 1.0 L [place] # (Auto) 0.3 Eos # (Auto) 0.3 Baso # (Auto) 0.0 Abs Immat Gran (auto) 0.01 Absolute Neuts (auto) 2.2 Absolute Nucleated RBC 0.000 Nucleated RBC % (auto) 0.0 Anion Gap 10 L Estim Creat Clear Calc 17.2 Estimated GFR 11 Random Glucose 137 H Calcium 7.7 L Magnesium 1.8 Total Bilirubin 0.2 Direct Bilirubin < 0.2 AST 37 ALT 34 Alkaline Phosphatase 123 H B-Natriuretic Peptide 585 H Total Protein 5.2 L Albumin 2.5 L Influenza Type A (PCR) NEGATIVE Influenza Type B (PCR) NEGATIVE RSV RNA Qual (PCR) NEGATIVE SARS-CoV-2 RNA (RT-PCR) NEGATIVE Assessment and Plan (1) Anasarca: Status: Resolved (2) Acute on chronic HFrEF (heart failure with reduced ejection fraction): Status: Acute (3) CKD (chronic kidney disease) stage 4, GFR 15-29 ml/min: Status: Acute Plan Patient is a 59-year-old male with a past medical history significant for RACHEL on CPAP, HFrEF (echo 09/08 EF 45-50%), IDDM, HTN, mixed hyperlipidemia, CKD4, who presented to the ED due to bilateral upper extremity and lower extremity edema with shortness of breath, orthopnea and dyspnea on exertion for the past week. anasarca secondary to acute on chronic HFrEF exacerbation - WBC 3.8, no fever, no infectious etiology - BNP elevated 585 - CXR negative for pulmonary edema - lasix 80mg IV x1, then lasix drip 5mg/hr - echo 09/08 with EF 45-50% - cardiology consult CKD4 progression - Cr 5.39 - nephrology consult IDDM - lantus 6U QHS - sliding scale insulin - diabetic diet HTN - BP elevated - continue home meds - lasix as above chronic anemia - hgb 7.7, no active bleeding - likely dilutional and due to CKD - monitor CBC RACHEL - CPAP at bedtime HLD - continue home meds full code VTE prophy: heparin patient with acute on chronic HFrEF exacerbation with anasarca and CKD for progression, requiring admission for at least 2 midnight stay for IV diuresis, Cardiology and Nephrology consultation. Quality Stroke Does the patient have a stroke diagnosis?: No VTE Prior VTE?: No VTE Risk Level:: Medical - moderate - high VTE Device Contraindication: Treatment Not Indicated VTE Drug Contraindication: N/A - Med Ordered
[2024-10-21 23:41] VITALS: BP 198/157
[2024-10-21] MEDS: Furosemide 100 MG/10 ML VIAL 80 MG IVPUSH (23:41)
--- NOTE | 2024-10-21 23:44 | PC.NURSE ---
pt placed in hospital bed for comfort, pt medicated per aug. urinal at bedside.
[2024-10-22] VITALS (20 sets, daily range): BP systolic 153–210; BP diastolic 72–107; PULSE 70–86; RESP 15–20; TEMP 36.6–37.1; O2SAT 95–98; BMI 34.2; BMI 35.4
[2024-10-22] MEDS: Nitroglycerin 2 % Oint 1 GM Packet 1 INCH TRANSDERMA (00:24)
[2024-10-22] MEDS: Furosemide 200 MG in 0.9 % Sodium Chloride 80 ML IVCONT ×2 (00:25→22:23)
[2024-10-22] MEDS: 0.9 % Sodium Chloride Flush 3 ML SYRINGE IVFLUSH ×3 (00:25→16:28)
--- NOTE | 2024-10-22 00:33 | PC.NURSE ---
new iv access established, 22G right hand. iv lasix drip started at this time, rt at bedside placing pt on nightime cpap. pt offers no complaints at this time.
[2024-10-22] MEDS: Heparin Sodium,Porcine 5,000 UNIT/ML VIAL 5000 UNIT SUBCUT ×4 (00:36→22:24)
[2024-10-22 04:53] LABS: MANUAL DIFF FLAG NO
[2024-10-22] MEDS: hydrALAZINE HCl 25 MG TABLET PO ×3 (04:56→20:47)
[2024-10-22 04:58] LABS: Basophils Percent Auto 0.2 % (0-2); Eosinophils Absolute Auto 0.2 X10*3/uL (0.0-0.4); Eosinophils Percent Auto 5.2 % (0-4); Hemoglobin 7.4 g/dl (14.0-18.0); Imm Gran Abs Auto 0.01 X10*3/uL (0.00-0.03); Imm Gran Pct Auto 0.2 % (0.0-0.4); Lymphocytes Absolute Auto 0.8 X10*3/uL (1.2-4.9); Lymphocytes Percent Auto 20.7 % (20-40); Mean Corpuscular HGB Conc 32.2 g/dl (31.0-36.0); Mean Corpuscular Hemoglobin 28.7 pg (27.0-33.0); Mean Corpuscular Volume 89.1 fL (80.0-98.0); Mean Platelet Volume 10.2 fL (9.4-12.4); Monocytes Absolute Auto 0.4 X10*3/uL (0.1-1.2); Monocytes Percent Auto 9.5 % (2-11); Neutrophils Absolute Auto 2.6 x10*3/uL (2.0-8.3); Neutrophils Percent Auto 64.2 % (45-73); Platelet Count 121 X10*3/uL (160-400); Red Blood Count 2.58 X10*6/uL (4.60-5.80); Red Cell Distribution Width 15.4 % (11.0-16.0)
--- NOTE | 2024-10-22 04:58 | PC.NURSE ---
provider aware of pt elevated bp, pt medicated per mar with PO dose of medication. pt placed back on night cpap, urinals emptied.
[2024-10-22 05:14] LABS: Anion Gap 12 (12-20); Blood Urea Nitrogen 74 mg/dL (9-16); Calcium 7.8 mg/dL (8.4-10.2); Carbon Dioxide 16 mmol/L (22-29); Chloride 116 mmol/L (96-108); Creatinine Clr Calc Pharmacy 16.6; Estimated Glomerular Filt Rate 11; Glucose Random 58 mg/dL (60-115); Potassium 5.2 mmol/L (3.3-5.1); Sodium 139 mmol/L (135-145)
[2024-10-22] MEDS: Dextrose 50 % 25 GM/50 ML SYRINGE IVPUSH (05:16)
[2024-10-22] MEDS: Doxazosin Mesylate 2 MG TABLET PO ×2 (05:21→20:48)
[2024-10-22] MEDS: hydrALAZINE HCl 20 MG/ML VIAL IVPUSH (05:21)
[2024-10-22] MEDS: cloNIDine HCL 0.1 MG TABLET PO ×2 (05:21→20:48)
--- NOTE | 2024-10-22 05:24 | PC.NURSE ---
critical value of glucose 58. pt medicated with prn dextrose per provider verbal order. pt medicated per mar with blood pressure medications.
[2024-10-22 05:28] LABS: Glucose, Whole Blood 180 mg/dL (60-115)
[2024-10-22 06:41] LABS: Glucose, Whole Blood 90 mg/dL (60-115)
[2024-10-22 08:21] LABS: Glucose, Whole Blood 142 mg/dL (60-115)
--- NOTE | 2024-10-22 09:54 | PHA.MEDREC ---
Addendum entered by Wilfred Mcintyre RP 10/22/24 10:45: Reviewed by [facility]. Original Note: Pharmacy Consult ? Medication Reconciliation Pharmacy has completed the medication reconciliation. Med rec is completed to the best of our ability. Patient is a poor historian. Spoke to patient daughter Geno to confirm med list, however the medications the Daughter was confirming didn't match claims nor discharge packet from 10/04/24. For example, Daughter states patient is taking Jardiance 10 mg. However, this medication is not on discharge packet and last fill date was 01/29/24 for 30 days. Called and spoke to patients visiting nurse Vikash [phone] to confirm all of patient meds. Nurse states patient no longer takes Lisinopril 40 mg, Farxiga 5 mg, however last fill date was 09/22/24 for 90 days, and Spironolactone 25 mg, however last fill date was 09/23/24 for 90 days,. Nurse confirmed patient is still taking Lantus 10 units at bedtime, however last fill date was 03/11/24 for 90 days, Methocarbamol 750 mg , however last filled 03/12/24 for 5 days, Nifedipine ER 30 mg daily, however last fill was for Nifedipine ER 90 mg daily 03/11/24 for 90 days, Leflunomide 10 mg, however last fill date was 03/11/24 for 90 days. Confirmed med list to reflect how visiting nurse states what patient is taking.
--- NOTE | 2024-10-22 10:55 | P.PNIM_ITS ---
Subjective Subjective Date of Service: 10/22/24 Interval History: f/u on fluid overload, heart failure, worsening advanced renal failure feels better, diuresing well iwth IV lasix drip Physical Exam 2 Vital Signs: Vital Signs: Last Vital Signs Temp 97.8 F 10/22/24 08:19 Pulse 81 10/22/24 08:19 Resp 16 10/22/24 08:19 BP 153/84 H 10/22/24 08:19 Pulse Ox 97 10/22/24 08:19 O2 Del Method Room Air 10/22/24 08:19 BMI result Body Mass Index 35.5 Const: Other: General: AO X 3, no acute distress Resp: CTA bilateral, CVS: S1,S2,RRR, 2 to 3 + leg edema GI: +BS, NT, no distention Skin: No rash Neuro: motor grossly intact Psych: appropriate affect Objective Data Active Medications Acetaminophen (Acetaminophen 325 Mg Tablet) 975 mg PO Q6H PRN PRN Reason: Pain, Mild 1-3,fever,headache Calcium Carbonate (Calcium Carbonate 750 Mg Tab.Chew) 750 mg PO Q4H PRN PRN Reason: Heartburn Dextrose (Dextrose 50 % 25 Gm/50 Ml Syringe) 25 gm IVPUSH Q15M PRN; Protocol PRN Reason: per Hypoglycemia Standing Ord. Last Admin: 10/22/24 05:16 Dose: 25 gm Documented By: ISIDRO Comments: admin per provider glucose 58 Glucose (Glucose Gel 15 Gm Gel..Gram.) 15 gm PO Q15M PRN; Protocol PRN Reason: per Hypoglycemia Standing Ord. Heparin Sodium (Porcine) (Heparin Sodium,Porcine 5,000 Unit/Ml Vial) 5,000 unit SUBCUT Q8H [facility] Last Admin: 10/22/24 08:19 Dose: 5,000 unit Documented By: NIXON Furosemide 200 mg/ Sodium (Chloride) 100 mls @ 2.5 mls/hr IVCONT .Q24H [facility] Last Admin: 10/22/24 00:25 Dose: 5 mg/hr, 2.5 mls/hr Documented By: ISIDRO Insulin Glargine (Insulin Glargine,Hum.Rec.Anlog 100 Unit/Ml 10 Ml Vial) 6 unit SUBCUT BEDTIME [facility] Insulin Human Lispro (Insulin Lispro 100 Unit/Ml 3 Ml Vial) 0 unit SUBCUT QIDACHS [facility]; Protocol Last Admin: 10/22/24 07:02 Dose: Not Given Documented By: NIXON Non-Admin Reason: No Insulin Coverage Magnesium Hydroxide (Milk Of Magnesia 30 Ml Oral.Susp) 30 ml PO DAILY PRN PRN Reason: Constipation Melatonin (Melatonin 3 Mg Tablet) 6 mg PO BEDTIME PRN PRN Reason: Insomnia Ondansetron HCl (Ondansetron Hcl 4 Mg/2 Ml Vial) 4 mg IVPUSH Q8H PRN PRN Reason: Nausea and Vomiting Sodium Chloride (0.9 % Sodium Chloride Flush 3 Ml Syringe) 3 ml IVFLUSH [facility] Last Admin: 10/22/24 08:20 Dose: 3 ml Documented By: NIXON Labs 10/22/24 04:42 10/22/24 04:42 Labs: Laboratory Results - last 24 hr 10/21/24 10/22/24 10/22/24 19:17 04:42 05:21 MCV 87.8 89.1 MCH 29.4 28.7 MCHC 33.5 32.2 RDW 15.6 15.4 Plt Count 119 L D 121 L MPV 10.1 10.2 Immature Gran % (Auto) 0.3 0.2 Neut % (Auto) 58.0 64.2 Lymph % (Auto) 26.9 20.7 [place] % (Auto) 7.9 9.5 Eos % (Auto) 6.6 H 5.2 H Baso % (Auto) 0.3 0.2 Lymph # (Auto) 1.0 L 0.8 L [place] # (Auto) 0.3 0.4 Eos # (Auto) 0.3 0.2 Baso # (Auto) 0.0 0.0 Abs Immat Gran (auto) 0.01 0.01 Absolute Neuts (auto) 2.2 2.6 Absolute Nucleated RBC 0.000 0.000 Nucleated RBC % (auto) 0.0 0.0 Anion Gap 10 L 12 Estim Creat Clear Calc 17.2 16.6 Estimated GFR 11 11 POC Glucose 180 H Random Glucose 137 H 58 L* Calcium 7.7 L 7.8 L Magnesium 1.8 Total Bilirubin 0.2 Direct Bilirubin < 0.2 AST 37 ALT 34 Alkaline Phosphatase 123 H B-Natriuretic Peptide 585 H Total Protein 5.2 L Albumin 2.5 L Influenza Type A (PCR) NEGATIVE Influenza Type B (PCR) NEGATIVE RSV RNA Qual (PCR) NEGATIVE SARS-CoV-2 RNA (RT-PCR) NEGATIVE 10/22/24 10/22/24 06:36 08:16 MCV MCH MCHC RDW Plt Count MPV Immature Gran % (Auto) Neut % (Auto) Lymph % (Auto) [place] % (Auto) Eos % (Auto) Baso % (Auto) Lymph # (Auto) [place] # (Auto) Eos # (Auto) Baso # (Auto) Abs Immat Gran (auto) Absolute Neuts (auto) Absolute Nucleated RBC Nucleated RBC % (auto) Anion Gap Estim Creat Clear Calc Estimated GFR POC Glucose 90 142 H Random Glucose Calcium Magnesium Total Bilirubin Direct Bilirubin AST ALT Alkaline Phosphatase B-Natriuretic Peptide Total Protein Albumin Influenza Type A (PCR) Influenza Type B (PCR) RSV RNA Qual (PCR) SARS-CoV-2 RNA (RT-PCR) Assessment and Plan (1) Chronic HFrEF (heart failure with reduced ejection fraction): Status: Acute (2) Diabetes: Status: Acute Plan Patient is a 59-year-old male with a past medical history significant for RACHEL on CPAP, HFrEF (echo 09/08 EF 45-50%), IDDM, HTN, mixed hyperlipidemia, CKD4, who presented to the ED due to bilateral upper extremity and lower extremity edema with shortness of breath, orthopnea and dyspnea on exertion for the past week. anasarca secondary to acute on chronic HFrEF exacerbation, echo 09/08 with EF 45-50% continue lasix drip nephrology consult monitor i/o, electrolytes CKD4 progression Cr 5.39 nephrology consult to assess the need for MANAGER SALT IDDM, lantus 10 qhs at home, sssi, monitor sugars HTN resume home meds (coreg, nifedipine, clonidine, hydralazine) Anemia of chronic disease of ckd, no indication for transfusion, maybe candidate for epogen later RACHEL CPAP at bedtime HLD -continue home meds full code VTE prophy: heparin patient with acute on chronic HFrEF exacerbation with anasarca and CKD for progression, requiring admission for at least 2 midnight stay for IV diuresis, Cardiology and Nephrology consultation. Quality Stroke Does the patient have a stroke diagnosis?: No VTE Prior VTE?: No VTE Risk Level:: Medical - moderate - high VTE Device Contraindication: Treatment Not Indicated VTE Drug Contraindication: N/A - Med Ordered
--- NOTE | 2024-10-22 11:01 | P.CONNP_ITS ---
History of Present Illness Reason for Consult Consult date: 10/22/24 Chief Complaint Chief complaint: anasarca History of Present Illness Narrative: Patient is a 59 y/o male with a medical history of CKD, HLD, HTN, DMII, HFrEF (45-50%), RACHEL on CPAP. Presented to the ED on 10/21 with generalized swelling. Nephrology consulted for anasarca and creatinine of 5.39. creatinine 5.39 on presentation 10/21. 10/22 is 5.49 recent hospitalization in September 2.5 weeks prior to presentation creatinine was 5.12. most recent creatinine prior to September hospitalization from December 2023 was 2.49. Patient states he does not see a automotive service technician outpatient. states he has longstanding, uncontrolled diabetes and HTN states he has been getting more and more swollen and not peeing over the past few days before coming into the hospital denies other symptoms outside of the swelling and lack of urination Review of Systems Cardiovascular: Denies chest pain, Denies leg edema and Denies dyspnea Respiratory: Denies dyspnea Gastrointestinal: Denies abdominal pain, Denies diarrhea, Denies nausea and Denies vomiting Genitourinary: Denies hematuria, Reports oliguria, Denies dysuria and Denies flank pain Musculoskeletal: Denies back pain, Denies arthralgias and Denies muscle cramps Skin/Breast: Denies rash Denies tremor(s) PMFSH Past Medical History Medical History (Updated 10/22/24 @ 11:28 by Kat Jose, SHAYNA, [employer]) Chronic HFrEF (heart failure with reduced ejection fraction) Anemia RACHEL (obstructive sleep apnea) Heart failure Hypercholesterolemia Hypertension Diabetes Social History Social History Household Members: Family Household Members Other:: grandson Housing: House Do you presently have visiting nurse or other home services: No Alcohol intake: never Patient Tobacco Use Status: Former Tobacco user Tobacco use type: Cigarette Smoked in Last 30 Days: No Second Hand Smoke Exposure: No Use of substances other than those prescribed or required for medical reasons: No Advance Directives: Yes Advance Directives on File: Yes Advance Directives Date on File: 08/08/23 Do you have a plan to hurt others: No Plan Nutrition Risks: No Nutritional Risk service: No Meds Allergies Allergy/AdvReac Type Severity Reaction Status Date / Time No Known Allergies Allergy Verified 10/21/24 19:00 Active Medications: Current Medications Acetaminophen (Acetaminophen 325 Mg Tablet) 975 mg PO Q6H PRN PRN Reason: Pain, Mild 1-3,fever,headache Aripiprazole (Aripiprazole 2 Mg Tablet) 2 mg PO DAILY [facility] Atorvastatin Calcium (Atorvastatin Calcium 80 Mg Tablet) 80 mg PO BEDTIME [facility] Bupropion HCl (Bupropion Hcl Xl 150 Mg Tab.Er.24h) 150 mg PO DAILY [facility] Calcitriol (Calcitriol 0.25 Mcg Capsule) 0.25 mcg PO DAILY [facility] Calcium Carbonate (Calcium Carbonate 750 Mg Tab.Chew) 750 mg PO Q4H PRN PRN Reason: Heartburn Carvedilol (Carvedilol 25 Mg Tablet) 25 mg PO BID [facility]; Protocol Clonidine HCl (Clonidine Hcl 0.1 Mg Tablet) 0.1 mg PO BID [facility]; Protocol Dextrose (Dextrose 50 % 25 Gm/50 Ml Syringe) 25 gm IVPUSH Q15M PRN; Protocol PRN Reason: per Hypoglycemia Standing Ord. Last Admin: 10/22/24 05:16 Dose: 25 gm Doxazosin Mesylate (Doxazosin Mesylate 2 Mg Tablet) 2 mg PO BEDTIME [facility]; Protocol Furosemide (Furosemide 20 Mg Tablet) 20 mg PO DAILY [facility]; Protocol Glucose (Glucose Gel 15 Gm Gel..Gram.) 15 gm PO Q15M PRN; Protocol PRN Reason: per Hypoglycemia Standing Ord. Heparin Sodium (Porcine) (Heparin Sodium,Porcine 5,000 Unit/Ml Vial) 5,000 unit SUBCUT Q8H [facility] Last Admin: 10/22/24 08:19 Dose: 5,000 unit Hydralazine HCl (Hydralazine Hcl 25 Mg Tablet) 25 mg PO TID [facility]; Protocol Furosemide 200 mg/ Sodium (Chloride) 100 mls @ 2.5 mls/hr IVCONT .Q24H [facility] Last Admin: 10/22/24 00:25 Dose: 5 mg/hr, 2.5 mls/hr Insulin Glargine (Insulin Glargine,Hum.Rec.Anlog 100 Unit/Ml 10 Ml Vial) 6 unit SUBCUT BEDTIME [facility] Insulin Glargine (Insulin Glargine,Hum.Rec.Anlog 100 Unit/Ml 10 Ml Vial) 10 unit SUBCUT BEDTIME [facility] Insulin Human Lispro (Insulin Lispro 100 Unit/Ml 3 Ml Vial) 0 unit SUBCUT QIDACHS [facility]; Protocol Last Admin: 10/22/24 07:02 Dose: Not Given Leflunomide (Leflunomide 10 Mg Tablet) 10 mg PO DAILY [facility] Loratadine (Loratadine 10 Mg Tablet) 10 mg PO DAILY [facility] Magnesium Hydroxide (Milk Of Magnesia 30 Ml Oral.Susp) 30 ml PO DAILY PRN PRN Reason: Constipation Melatonin (Melatonin 3 Mg Tablet) 6 mg PO BEDTIME PRN PRN Reason: Insomnia Methocarbamol (Methocarbamol 750 Mg Tablet) 750 mg PO Q6H PRN PRN Reason: muscle spasm Mirtazapine (Mirtazapine 15 Mg Tablet) 15 mg PO BEDTIME [facility] Nifedipine (Nifedipine Er 30 Mg Tab.Er.24) 90 mg PO DAILY [facility]; Protocol Ondansetron HCl (Ondansetron Hcl 4 Mg/2 Ml Vial) 4 mg IVPUSH Q8H PRN PRN Reason: Nausea and Vomiting Sertraline HCl (Sertraline Hcl 50 Mg Tablet) 50 mg PO DAILY [facility] Sevelamer Carbonate (Sevelamer Carbonate Tablet 800 Mg Tablet) 800 mg PO TIDWM [facility] Sodium Bicarbonate (Sodium Bicarbonate 650 Mg Tablet) 1,300 mg PO BID [facility] Sodium Chloride (0.9 % Sodium Chloride Flush 3 Ml Syringe) 3 ml IVFLUSH QSHIFT [facility] Last Admin: 10/22/24 08:20 Dose: 3 ml Sodium Zirconium Cyclosilicate (Sodium Zirconium Cyclosilicate 10 Gm Powd.Pack) 10 gm PO DAILY [facility] Trazodone HCl (Trazodone Hcl 50 Mg Tablet) 50 mg PO BEDTIME [facility] Vitamin D (Cholecalciferol (Vitamin D3) 25 Mcg Tablet) 125 mcg PO DAILY [facility] Zolpidem Tartrate (Zolpidem Tartrate 5 Mg Tablet) 10 mg PO BEDTIME [facility] Home Medications ?Medication ?Instructions ?Recorded ?Confirmed ?Last Taken ?Type atorvastatin 80 mg tablet 80 mg PO BEDTIME 08/05/23 10/22/24 10/21/24 History nifedipine 30 mg tablet,extended 90 mg PO DAILY 11/20/23 10/22/24 10/21/24 History release 24 hr aripiprazole 2 mg tablet 2 mg PO DAILY 10/02/24 10/22/24 10/21/24 History bupropion HCl 150 mg 24 hr tablet, 150 mg PO DAILY 10/02/24 10/22/24 10/21/24 History extended release cholecalciferol (vitamin D3) 125 125 mcg PO DAILY 10/02/24 10/22/24 10/21/24 History mcg (5,000 unit) tablet (Vitamin D3) clonidine HCl 0.1 mg tablet 0.1 mg PO BID 10/02/24 10/22/24 10/21/24 History doxazosin 2 mg tablet 2 mg PO BEDTIME 10/02/24 10/22/24 10/21/24 History insulin glargine 100 unit/mL 10 unit subcut BEDTIME 10/02/24 10/22/24 10/21/24 History subcutaneous solution leflunomide 10 mg tablet 10 mg PO DAILY 10/02/24 10/22/24 10/21/24 History loratadine 10 mg tablet 10 mg PO DAILY 10/02/24 10/22/24 10/21/24 History methocarbamol 750 mg tablet 750 mg PO Q6H PRN muscle spasm 10/02/24 10/22/24 3 Weeks Ago History ~09/11/24 mirtazapine 15 mg tablet 15 mg PO BEDTIME 10/02/24 10/22/24 10/21/24 History sertraline 50 mg tablet 50 mg PO DAILY 10/02/24 10/22/24 10/21/24 History trazodone 50 mg tablet 50 mg PO BEDTIME 10/02/24 10/22/24 10/21/24 History zolpidem 10 mg tablet 10 mg PO BEDTIME 10/02/24 10/22/24 10/21/24 History Physical Exam Vital Signs: Last Vital Signs Temp 97.8 F 10/22/24 08:19 Pulse 81 10/22/24 08:19 Resp 16 10/22/24 08:19 BP 153/84 H 10/22/24 08:19 Pulse Ox 97 10/22/24 08:19 O2 Del Method Room Air 10/22/24 08:19 BMI result Body Mass Index 35.5 Const General: no acute distress, alert and awake Resp Effort & Inspection: normal respiratory effort Auscultation: clear to auscultation bilaterally Cardio Rate: regular rate Rhythm: regular rhythm GI Inspection: Yes Abdominal wall edema Palpation (GI): Soft to palpation and nontender General: Yes no CVA tenderness Back/Spine/Pelvis Back: no CVA tenderness Skin Rashes: no rashes Extrem General: Yes edema (BUE and BLE pitting edema) Results Lab Results 10/22/24 04:42 10/22/24 04:42 Lab results: Chemistry 10/21/24 10/22/24 19:17 04:42 Sodium 138 139 Potassium 4.9 5.2 H Carbon Dioxide 18 L 16 L BUN 75 H 74 H Creatinine 5.39 H* 5.49 H* Calcium 7.7 L 7.8 L Hematology 10/21/24 10/22/24 19:17 04:42 WBC 3.8 L 4.0 L Hgb 7.2 L D 7.4 L Plt Count 119 L D 121 L Assessment and Plan (1) Chronic kidney disease: Qualifiers: Chronic kidney disease stage: stage 5 (GFR < 15), not on chronic dialysis Qualified Code(s): N18.5 - Chronic kidney disease, stage 5 Status: Acute (2) Hypertension: Qualifiers: Hypertension type: unspecified Qualified Code(s): I10 - Essential (primary) hypertension Status: Acute (3) Anasarca: Status: Acute (4) Metabolic acidosis: Status: Resolved (5) Anemia of chronic disease: Status: Acute Plan Patient with CKD presents with elevated creatinine and edema- MARII vs progression of chronic kidney disease Patient has started to make urine at 5mg/hr lasix. Recommend increasing lasix drip to 10mg/hr. No indication for renal replacement at this time- will reassess need for HD tomorrow based on response. hyperkalemia acceptable- recommend PRN lokelma for potassium 6.0 or higher metabolic acidosis, uremia likely contributing continue oral sodium bicarb for now (may switch to bicitra if available from pharmacy) in addition to lasix drip will check PTH, phosphorous, vit D- if abnormal, may point toward progression of CKD rather than MARII patient has significant proteinuria, will check SPEP, UPEP, free light chains anemia of chronic disease- will check iron and replete if low. Discussed with Dr Ramos Procedures Date of Service Date of Service: 10/22/24
--- NOTE | 2024-10-22 11:14 | PC.NURSE ---
lasix gtt increased per provider order.
[2024-10-22] MEDS: Cholecalciferol (Vitamin D3) 25 MCG TABLET 125 MCG PO (11:28)
[2024-10-22] MEDS: Sodium Zirconium Cyclosilicate 10 GM POWD.PACK PO (11:28)
[2024-10-22] MEDS: Loratadine 10 MG TABLET PO (11:28)
[2024-10-22] MEDS: buPROPion HCl XL 150 MG TAB.ER.24H PO (11:28)
[2024-10-22] MEDS: Sodium Bicarbonate 650 MG TABLET 1300 MG PO ×2 (11:28→20:48)
[2024-10-22] MEDS: carvediloL 25 MG TABLET PO ×2 (11:30→20:47)
[2024-10-22 12:02] LABS: Glucose, Whole Blood 81 mg/dL (60-115)
[2024-10-22] MEDS: calcitrioL 0.25 MCG CAPSULE PO (13:00)
[2024-10-22] MEDS: Sevelamer Carbonate Tablet 800 MG TABLET PO ×2 (13:00→17:42)
[2024-10-22] MEDS: ARIPiprazole 2 MG TABLET PO (13:00)
--- NOTE | 2024-10-22 13:22 | MHC.CM.PN ---
PT FROM HOME, LIVES ALONE RECIEVES [facility] BUT DOES NOT KNOW COMPANY.. NO DME PCP- MELYSSA COLBERT HCP- ASHLEY HOPE, DCP- HOME, CONTINUE SERVICES, PRIVATE TRANSPORT
[2024-10-22 16:42] LABS: Glucose, Whole Blood 95 mg/dL (60-115)
[2024-10-22] MEDS: hydrALAZINE HCl 20 MG/ML VIAL 10 MG IVPUSH (17:50)
--- NOTE | 2024-10-22 17:54 | PC.NURSE ---
pt stated that he has home services for cleANING and for meds administration including Insulin on daily bases
[2024-10-22] MEDS: Zolpidem Tartrate 5 MG TABLET 10 MG PO (20:47)
[2024-10-22] MEDS: traZODone HCL 50 MG TABLET PO (20:48)
[2024-10-22] MEDS: Mirtazapine 15 MG TABLET PO (20:48)
[2024-10-22] MEDS: Atorvastatin Calcium 80 MG TABLET PO (20:48)
[2024-10-22] MEDS: Insulin Glargine,Hum.rec.anlog 100 UNIT/ML 10 ML VIAL 10 UNIT SUBCUT (20:54)
[2024-10-22 20:58] LABS: Glucose, Whole Blood 90 mg/dL (60-115)
[2024-10-23] VITALS (8 sets, daily range): BP systolic 136–198; BP diastolic 68–89; PULSE 68–77; RESP 16–20; TEMP 36.4–37.2; O2SAT 93–97; BMI 34.2
[2024-10-23] MEDS: hydrALAZINE HCl 20 MG/ML VIAL IVPUSH (00:27)
[2024-10-23] MEDS: Acetaminophen 325 MG TABLET 975 MG PO (00:30)
[2024-10-23] MEDS: Nitroglycerin 2 % Oint 1 GM Packet 1 INCH TRANSDERMA (04:03)
[2024-10-23 07:42] LABS: Glucose, Whole Blood 61 mg/dL (60-115)
[2024-10-23] MEDS: Heparin Sodium,Porcine 5,000 UNIT/ML VIAL 5000 UNIT SUBCUT ×2 (08:13→16:07)
[2024-10-23] MEDS: calcitrioL 0.25 MCG CAPSULE PO (08:14)
[2024-10-23] MEDS: Sertraline HCL 50 MG TABLET PO (08:14)
[2024-10-23] MEDS: Cholecalciferol (Vitamin D3) 25 MCG TABLET 125 MCG PO (08:14)
[2024-10-23] MEDS: ARIPiprazole 2 MG TABLET PO (08:14)
[2024-10-23] MEDS: NIFEdipine ER 30 MG TAB.ER.24 90 MG PO (08:14)
[2024-10-23] MEDS: Sevelamer Carbonate Tablet 800 MG TABLET PO ×3 (08:14→16:07)
[2024-10-23] MEDS: carvediloL 25 MG TABLET PO ×2 (08:14→20:47)
[2024-10-23] MEDS: cloNIDine HCL 0.1 MG TABLET PO ×2 (08:15→20:47)
[2024-10-23] MEDS: Leflunomide 10 MG TABLET PO (08:15)
[2024-10-23] MEDS: Sodium Bicarbonate 650 MG TABLET 1300 MG PO ×2 (08:15→20:48)
[2024-10-23] MEDS: hydrALAZINE HCl 25 MG TABLET PO ×3 (08:15→20:46)
[2024-10-23] MEDS: buPROPion HCl XL 150 MG TAB.ER.24H PO (08:15)
[2024-10-23] MEDS: Loratadine 10 MG TABLET PO (08:15)
[2024-10-23 08:17] LABS: MANUAL DIFF FLAG NO
[2024-10-23] MEDS: 0.9 % Sodium Chloride Flush 3 ML SYRINGE IVFLUSH ×3 (08:20→20:49)
[2024-10-23 08:32] LABS: Basophils Percent Auto 0.3 % (0-2); Eosinophils Absolute Auto 0.2 X10*3/uL (0.0-0.4); Eosinophils Percent Auto 6.5 % (0-4); Hematocrit 22.5 % (42.0-52.0); Hemoglobin 7.3 g/dl (14.0-18.0); Lymphocytes Absolute Auto 1.2 X10*3/uL (1.2-4.9); Lymphocytes Percent Auto 34.8 % (20-40); Mean Corpuscular HGB Conc 32.4 g/dl (31.0-36.0); Mean Corpuscular Volume 89.3 fL (80.0-98.0); Mean Platelet Volume 11.2 fL (9.4-12.4); Monocytes Absolute Auto 0.3 X10*3/uL (0.1-1.2); Monocytes Percent Auto 9.1 % (2-11); Neutrophils Absolute Auto 1.7 x10*3/uL (2.0-8.3); Neutrophils Percent Auto 49.3 % (45-73); Platelet Count 131 X10*3/uL (160-400); Red Blood Count 2.52 X10*6/uL (4.60-5.80); Red Cell Distribution Width 15.7 % (11.0-16.0); White Blood Count 3.4 X10*3/uL (4.8-10.8)
[2024-10-23 08:48] LABS: Anion Gap 13 (12-20); Blood Urea Nitrogen 77 mg/dL (9-16); Calcium 7.7 mg/dL (8.4-10.2); Carbon Dioxide 19 mmol/L (22-29); Chloride 112 mmol/L (96-108); Creatinine Clr Calc Pharmacy 15.5; Estimated Glomerular Filt Rate 10; Glucose Random 54 mg/dL (60-115); Potassium 4.7 mmol/L (3.3-5.1); Sodium 139 mmol/L (135-145)
[2024-10-23 08:52] LABS: Iron 40 mcg/dL (45-160); Percent Iron Saturation 29 % (15-50); Phosphorus 5.6 mg/dL (2.7-4.5); Total Iron Binding Capacity 136 mcg/dL (228-428); Unsaturated Iron Binding 96 ug/dL
[2024-10-23 08:54] LABS: Parathyroid Hormone Intact 192.8 pg/mL (8.7-77.1)
[2024-10-23 09:06] LABS: Ferritin 380 ng/mL (20-250)
[2024-10-23 11:10] LABS: Glucose, Whole Blood 99 mg/dL (60-115)
--- NOTE | 2024-10-23 11:15 | P.PNNP_ITS ---
Subjective Subjective Date of Service: 10/23/24 Interval history: Patient is a 59 y/o male with CKD, longstanding HTN and DMII, HFrEF (45-50%), RACHEL on CPAP. Presented to the ED on 10/21 with generalized swelling. Nephrology consulted for anasarca and creatinine of 5.39. creatinine 5.39 on presentation 10/21. 10/22 is 5.49, 10/23 is 5.79. 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 patient was starting on a lasix drip yesterday, currently at 10mg/hr. Patient urine output over pervious 24 hours was 3500mL. patient reports he feels better today, denies new symptoms. H&H 7.3 & 22.5, iron stores adequate potassium level normal today at 4.7 calcium 7.7, phosphorous 5.6, PTH 192 - he is on cinacalcet 0.25mg daily (also as outpatient). renal imaging shows enlarged bilateral kidneys, otherwise unremarkable without hydronephrosis or calculi. Physical Exam 2 Vital Signs: Vital Signs: Last Vital Signs Temp 97.9 F 10/23/24 11:16 Pulse 71 10/23/24 11:16 Resp 20 10/23/24 11:16 BP 186/70 H 10/23/24 11:16 Pulse Ox 96 10/23/24 11:16 O2 Del Method Room Air 10/23/24 11:16 BMI result Body Mass Index 34.2 Const: General: no acute distress, alert and awake Resp: Effort & Inspection: normal respiratory effort Auscultation: clear to auscultation bilaterally Cardio: Rate: regular rate Rhythm: regular rhythm GI: Inspection: Yes Abdominal wall edema Palpation (GI): Soft to palpation and nontender : General: Yes no CVA tenderness Back/Spine/Pelvis: Back: no CVA tenderness Skin: Rashes: no rashes Extrem: General: Yes edema (BUE and BLE pitting edema) Objective Data Labs 10/23/24 06:55 10/23/24 06:55 Labs: Laboratory Results - last 24 hr 10/22/24 10/22/24 10/23/24 16:35 20:50 06:55 WBC 3.4 L RBC 2.52 L Hgb 7.3 L Hct 22.5 L MCV 89.3 MCH 29.0 MCHC 32.4 RDW 15.7 Plt Count 131 L MPV 11.2 Immature Gran % (Auto) 0.0 Neut % (Auto) 49.3 Lymph % (Auto) 34.8 [place] % (Auto) 9.1 Eos % (Auto) 6.5 H Baso % (Auto) 0.3 Lymph # (Auto) 1.2 [place] # (Auto) 0.3 Eos # (Auto) 0.2 Baso # (Auto) 0.0 Abs Immat Gran (auto) 0.00 Absolute Neuts (auto) 1.7 L Absolute Nucleated RBC 0.000 Nucleated RBC % (auto) 0.0 Sodium 139 Potassium 4.7 Chloride 112 H Carbon Dioxide 19 L Anion Gap 13 BUN 77 H Creatinine 5.79 H* Estim Creat Clear Calc 15.5 Estimated GFR 10 POC Glucose 95 90 Random Glucose 54 L* Calcium 7.7 L Phosphorus 5.6 H Iron 40 L TIBC 136 L % Saturation 29 Unsat Iron Binding 96 Ferritin 380 H PTH Intact 192.8 H 10/23/24 10/23/24 07:37 11:06 WBC RBC Hgb Hct MCV MCH MCHC RDW Plt Count MPV Immature Gran % (Auto) Neut % (Auto) Lymph % (Auto) [place] % (Auto) Eos % (Auto) Baso % (Auto) Lymph # (Auto) [place] # (Auto) Eos # (Auto) Baso # (Auto) Abs Immat Gran (auto) Absolute Neuts (auto) Absolute Nucleated RBC Nucleated RBC % (auto) Sodium Potassium Chloride Carbon Dioxide Anion Gap BUN Creatinine Estim Creat Clear Calc Estimated GFR POC Glucose 61 99 Random Glucose Calcium Phosphorus Iron TIBC % Saturation Unsat Iron Binding Ferritin PTH Intact Procedures Date of Service Date of Service: 10/23/24 Assessment & Plan Assessment and plan (1) Chronic kidney disease: Status: Acute (2) Anemia of chronic disease: Status: Acute (3) Anasarca: Status: Acute (4) Hypertension: Status: Acute Plan Patient with CKD presents with elevated creatinine and edema- most likely progression of chronic renal disease given anemia of chronic disease and secondary hyperparathyroidism as well as enlarged kidneys on imaging. Patient has been diuresing well on 10mg/hr lasix, recommend continuing for now as patient remains fluid overloaded. No indication for renal replacement at this time, though discussed fistula placement with patient as he will likely need HD in the future. blood pressure is suboptimal- patient received first doses of oral antihypertensives this a.m.- recommend to continue this regimen and will adjust antihypertensives tomorrow if indicated. hyperkalemia resolved metabolic acidosis is improving. uremia likely contributing continue oral sodium bicarb for now. anemia of chronic disease- iron stores adequate, will start procrit SC injection 10,000units 3x weekly SPEP, UPEP, free light chains pending Discussed with Dr Ramos Time Spent With Patient Time: Total time managing care of this patient today ____ minutes. Progress Note: Quality Stroke Does the patient have a stroke diagnosis?: No
--- NOTE | 2024-10-23 11:50 | P.PNIM_ITS ---
Subjective Subjective Date of Service: 10/23/24 Interval History: f/u on fluid overload, heart failure, worsening advanced renal failure feels better, diuresing well iwth IV lasix drip. He reports feeling 100% better today Physical Exam 2 Vital Signs: Vital Signs: Last Vital Signs Temp 97.9 F 10/23/24 11:16 Pulse 71 10/23/24 11:16 Resp 20 10/23/24 11:16 BP 186/70 H 10/23/24 11:16 Pulse Ox 96 10/23/24 11:16 O2 Del Method Room Air 10/23/24 11:16 BMI result Body Mass Index 34.2 Const: Other: General: AO X 3, no acute distress Resp: CTA bilateral, CVS: S1,S2,RRR, 2 +leg edema GI: +BS, NT, no distention Skin: No rash Neuro: motor grossly intact Psych: appropriate affect Objective Data Active Medications Acetaminophen (Acetaminophen 325 Mg Tablet) 975 mg PO Q6H PRN PRN Reason: Pain, Mild 1-3,fever,headache Last Admin: 10/23/24 00:30 Dose: 975 mg Documented By: GOLDEN Aripiprazole (Aripiprazole 2 Mg Tablet) 2 mg PO DAILY [facility] Last Admin: 10/23/24 08:14 Dose: 2 mg Documented By: ALTAGRACIA Atorvastatin Calcium (Atorvastatin Calcium 80 Mg Tablet) 80 mg PO BEDTIME [facility] Last Admin: 10/22/24 20:48 Dose: 80 mg Documented By: GOLDEN Bupropion HCl (Bupropion Hcl Xl 150 Mg Tab.Er.24h) 150 mg PO DAILY [facility] Last Admin: 10/23/24 08:15 Dose: 150 mg Documented By: ALTAGRACIA Calcitriol (Calcitriol 0.25 Mcg Capsule) 0.25 mcg PO DAILY [facility] Last Admin: 10/23/24 08:14 Dose: 0.25 mcg Documented By: ALTAGRACIA Calcium Carbonate (Calcium Carbonate 750 Mg Tab.Chew) 750 mg PO Q4H PRN PRN Reason: Heartburn Carvedilol (Carvedilol 25 Mg Tablet) 25 mg PO BID [facility]; Protocol Last Admin: 10/23/24 08:14 Dose: 25 mg Documented By: ALTAGRACIA Clonidine HCl (Clonidine Hcl 0.1 Mg Tablet) 0.1 mg PO BID [facility]; Protocol Last Admin: 10/23/24 08:15 Dose: 0.1 mg Documented By: ALTAGRACIA Dextrose (Dextrose 50 % 25 Gm/50 Ml Syringe) 25 gm IVPUSH Q15M PRN; Protocol PRN Reason: per Hypoglycemia Standing Ord. Last Admin: 10/22/24 05:16 Dose: 25 gm Documented By: ISIDRO Comments: admin per provider glucose 58 Doxazosin Mesylate (Doxazosin Mesylate 2 Mg Tablet) 2 mg PO BEDTIME [facility]; Protocol Last Admin: 10/22/24 20:48 Dose: 2 mg Documented By: GOLDEN Epoetin Derek-epbx (Epoetin Derek-Epbx 10,000 Unit/Ml Vial) 10,000 unit SUBCUT [id number] [facility] Glucose (Glucose Gel 15 Gm Gel..Gram.) 15 gm PO Q15M PRN; Protocol PRN Reason: per Hypoglycemia Standing Ord. Heparin Sodium (Porcine) (Heparin Sodium,Porcine 5,000 Unit/Ml Vial) 5,000 unit SUBCUT Q8H [facility] Last Admin: 10/23/24 08:13 Dose: 5,000 unit Documented By: ALTAGRACIA Hydralazine HCl (Hydralazine Hcl 25 Mg Tablet) 25 mg PO TID [facility]; Protocol Last Admin: 10/23/24 08:15 Dose: 25 mg Documented By: ALTAGRACIA Hydralazine HCl (Hydralazine Hcl 20 Mg/Ml Vial) 10 mg IVPUSH Q6H PRN; Protocol PRN Reason: SBP >180 Last Admin: 10/22/24 17:50 Dose: 10 mg Documented By: PREETHI Furosemide 200 mg/ Sodium (Chloride) 100 mls @ 5 mls/hr IVCONT .Q20H [facility] Last Admin: 10/22/24 22:23 Dose: 10 mg/hr, 5 mls/hr Documented By: GOLDEN Insulin Glargine (Insulin Glargine,Hum.Rec.Anlog 100 Unit/Ml 10 Ml Vial) 10 unit SUBCUT BEDTIME [facility] Last Admin: 10/22/24 20:54 Dose: 10 unit Documented By: GOLDEN Insulin Human Lispro (Insulin Lispro 100 Unit/Ml 3 Ml Vial) 0 unit SUBCUT QIDACHS [facility]; Protocol Last Admin: 10/23/24 08:06 Dose: Not Given Documented By: ALTAGRACIA Non-Admin Reason: No Insulin Coverage Leflunomide (Leflunomide 10 Mg Tablet) 10 mg PO DAILY [facility] Last Admin: 10/23/24 08:15 Dose: 10 mg Documented By: ALTAGRACIA Loratadine (Loratadine 10 Mg Tablet) 10 mg PO DAILY [facility] Last Admin: 10/23/24 08:15 Dose: 10 mg Documented By: ALTAGRACIA Magnesium Hydroxide (Milk Of Magnesia 30 Ml Oral.Susp) 30 ml PO DAILY PRN PRN Reason: Constipation Melatonin (Melatonin 3 Mg Tablet) 6 mg PO BEDTIME PRN PRN Reason: Insomnia Methocarbamol (Methocarbamol 750 Mg Tablet) 750 mg PO Q6H PRN PRN Reason: muscle spasm Mirtazapine (Mirtazapine 15 Mg Tablet) 15 mg PO BEDTIME [facility] Last Admin: 10/22/24 20:48 Dose: 15 mg Documented By: GOLDEN Nifedipine (Nifedipine Er 30 Mg Tab.Er.24) 90 mg PO DAILY [facility]; Protocol Last Admin: 10/23/24 08:14 Dose: 90 mg Documented By: ALTAGRACIA Ondansetron HCl (Ondansetron Hcl 4 Mg/2 Ml Vial) 4 mg IVPUSH Q8H PRN PRN Reason: Nausea and Vomiting Sertraline HCl (Sertraline Hcl 50 Mg Tablet) 50 mg PO DAILY [facility] Last Admin: 10/23/24 08:14 Dose: 50 mg Documented By: ALTAGRACIA Sevelamer Carbonate (Sevelamer Carbonate Tablet 800 Mg Tablet) 800 mg PO TIDWM [facility] Last Admin: 10/23/24 08:14 Dose: 800 mg Documented By: ALTAGRACIA Sodium Bicarbonate (Sodium Bicarbonate 650 Mg Tablet) 1,300 mg PO BID [facility] Last Admin: 10/23/24 08:15 Dose: 1,300 mg Documented By: ALTAGRACIA Sodium Chloride (0.9 % Sodium Chloride Flush 3 Ml Syringe) 3 ml IVFLUSH QSHIFT [facility] Last Admin: 10/23/24 08:20 Dose: 3 ml Documented By: ALTAGRACIA Sodium Zirconium Cyclosilicate (Sodium Zirconium Cyclosilicate 10 Gm Powd.Pack) 10 gm PO DAILY [facility] Last Admin: 10/23/24 09:05 Dose: Not Given Documented By: ALTAGRACIA Non-Admin Reason: per nephro rec Trazodone HCl (Trazodone Hcl 50 Mg Tablet) 50 mg PO BEDTIME [facility] Last Admin: 10/22/24 20:48 Dose: 50 mg Documented By: GOLDEN Vitamin D (Cholecalciferol (Vitamin D3) 25 Mcg Tablet) 125 mcg PO DAILY [facility] Last Admin: 10/23/24 08:14 Dose: 125 mcg Documented By: ALTAGRACIA Zolpidem Tartrate (Zolpidem Tartrate 5 Mg Tablet) 10 mg PO BEDTIME [facility] Last Admin: 10/22/24 20:47 Dose: 10 mg Documented By: GOLDEN Labs 10/23/24 06:55 10/23/24 06:55 Labs: Laboratory Results - last 24 hr 10/22/24 10/22/24 10/22/24 11:58 16:35 20:50 MCV MCH MCHC RDW Plt Count MPV Immature Gran % (Auto) Neut % (Auto) Lymph % (Auto) [place] % (Auto) Eos % (Auto) Baso % (Auto) Lymph # (Auto) [place] # (Auto) Eos # (Auto) Baso # (Auto) Abs Immat Gran (auto) Absolute Neuts (auto) Absolute Nucleated RBC Nucleated RBC % (auto) Anion Gap Estim Creat Clear Calc Estimated GFR POC Glucose 81 95 90 Random Glucose Calcium Phosphorus Iron TIBC % Saturation Unsat Iron Binding Ferritin PTH Intact 10/23/24 10/23/24 10/23/24 06:55 07:37 11:06 MCV 89.3 MCH 29.0 MCHC 32.4 RDW 15.7 Plt Count 131 L MPV 11.2 Immature Gran % (Auto) 0.0 Neut % (Auto) 49.3 Lymph % (Auto) 34.8 [place] % (Auto) 9.1 Eos % (Auto) 6.5 H Baso % (Auto) 0.3 Lymph # (Auto) 1.2 [place] # (Auto) 0.3 Eos # (Auto) 0.2 Baso # (Auto) 0.0 Abs Immat Gran (auto) 0.00 Absolute Neuts (auto) 1.7 L Absolute Nucleated RBC 0.000 Nucleated RBC % (auto) 0.0 Anion Gap 13 Estim Creat Clear Calc 15.5 Estimated GFR 10 POC Glucose 61 99 Random Glucose 54 L* Calcium 7.7 L Phosphorus 5.6 H Iron 40 L TIBC 136 L % Saturation 29 Unsat Iron Binding 96 Ferritin 380 H PTH Intact 192.8 H Assessment and Plan (1) Chronic HFrEF (heart failure with reduced ejection fraction): Status: Acute (2) Diabetes: Status: Acute Plan Patient is a 59-year-old male with a past medical history significant for RACHEL on CPAP, HFrEF (echo 09/08 EF 45-50%), IDDM, HTN, mixed hyperlipidemia, CKD4, who presented to the ED due to bilateral upper extremity and lower extremity edema with shortness of breath, orthopnea and dyspnea on exertion for the past week. anasarca secondary to acute on chronic HFrEF exacerbation, echo 09/08 with EF 45-50% continue lasix drip at 10 mg/hr, so far negative 5 liter nephrology following monitor i/o, electrolytes Hyperkalemia, resolved a CKD4 with progression, stable nephrology following, no indication for SUPERVISOR DEHYDROGENATION at this time IDDM, lantus 10 qhs at home, ssi, had hypoglycemia this HTN resume home meds (coreg, nifedipine, clonidine, hydralazine) Anemia of chronic disease of ckd, no indication for transfusion, maybe candidate for epogen later RACHEL CPAP at bedtime HLD -continue home meds full code VTE prophy: heparin patient with acute on chronic HFrEF exacerbation with anasarca and CKD for progression, requiring admission for at least 2 midnight stay for IV diuresis, Cardiology and Nephrology consultation. Quality Stroke Does the patient have a stroke diagnosis?: No VTE Prior VTE?: No VTE Risk Level:: Medical - moderate - high VTE Device Contraindication: Treatment Not Indicated VTE Drug Contraindication: N/A - Med Ordered
--- NOTE | 2024-10-23 12:52 | MHC.CM.PN ---
Per MD rounds Patient is not medically cleared to discharge. Patient continues on a Lasix gtt. DP Home self care. Patients spouse will provide transportation home.
[2024-10-23 15:57] LABS: Glucose, Whole Blood 104 mg/dL (60-115)
[2024-10-23] MEDS: Furosemide 200 MG in 0.9 % Sodium Chloride 80 ML IVCONT (20:44)
[2024-10-23] MEDS: Atorvastatin Calcium 80 MG TABLET PO (20:47)
[2024-10-23] MEDS: Zolpidem Tartrate 5 MG TABLET 10 MG PO (20:48)
[2024-10-23] MEDS: Doxazosin Mesylate 2 MG TABLET PO (20:48)
[2024-10-23] MEDS: Mirtazapine 15 MG TABLET PO (20:48)
[2024-10-23] MEDS: Epoetin Alfa-epbx 10,000 UNIT/ML VIAL 10000 UNIT SUBCUT (20:49)
[2024-10-23] MEDS: traZODone HCL 50 MG TABLET PO (20:49)
[2024-10-23 20:52] LABS: Glucose, Whole Blood 105 mg/dL (60-115)
[2024-10-24] VITALS (7 sets, daily range): BP systolic 126–159; BP diastolic 66–74; PULSE 68–79; RESP 16–20; TEMP 36.6–37.2; O2SAT 92–97; BMI 32.4
[2024-10-24] MEDS: Heparin Sodium,Porcine 5,000 UNIT/ML VIAL 5000 UNIT SUBCUT ×4 (00:10→23:57)
[2024-10-24 07:18] LABS: Glucose, Whole Blood 66 mg/dL (60-115)
[2024-10-24 08:08] LABS: MANUAL DIFF FLAG NO
[2024-10-24 08:11] LABS: Basophils Percent Auto 0.3 % (0-2); Eosinophils Absolute Auto 0.2 X10*3/uL (0.0-0.4); Eosinophils Percent Auto 5.7 % (0-4); Hematocrit 23.1 % (42.0-52.0); Hemoglobin 7.4 g/dl (14.0-18.0); Lymphocytes Percent Auto 29.5 % (20-40); Mean Corpuscular Hemoglobin 28.4 pg (27.0-33.0); Mean Corpuscular Volume 88.5 fL (80.0-98.0); Mean Platelet Volume 10.2 fL (9.4-12.4); Monocytes Absolute Auto 0.3 X10*3/uL (0.1-1.2); Monocytes Percent Auto 8.8 % (2-11); Neutrophils Percent Auto 55.7 % (45-73); Platelet Count 131 X10*3/uL (160-400); Red Blood Count 2.61 X10*6/uL (4.60-5.80); Red Cell Distribution Width 15.4 % (11.0-16.0); White Blood Count 3.5 X10*3/uL (4.8-10.8)
[2024-10-24 08:25] LABS: Sodium 139 mmol/L (135-145)
[2024-10-24 08:26] LABS: Anion Gap 14 (12-20); Blood Urea Nitrogen 76 mg/dL (9-16); Calcium 7.7 mg/dL (8.4-10.2); Carbon Dioxide 19 mmol/L (22-29); Chloride 111 mmol/L (96-108); Creatinine Clr Calc Pharmacy 14.2; Estimated Glomerular Filt Rate 9; Glucose Random 64 mg/dL (60-115); Potassium 4.8 mmol/L (3.3-5.1)
[2024-10-24] MEDS: Sertraline HCL 50 MG TABLET PO (08:32)
[2024-10-24] MEDS: Cholecalciferol (Vitamin D3) 25 MCG TABLET 125 MCG PO (08:32)
[2024-10-24] MEDS: Sevelamer Carbonate Tablet 800 MG TABLET PO ×3 (08:32→17:08)
[2024-10-24] MEDS: Sodium Bicarbonate 650 MG TABLET 1300 MG PO (08:32)
[2024-10-24] MEDS: calcitrioL 0.25 MCG CAPSULE PO (08:32)
[2024-10-24] MEDS: ARIPiprazole 2 MG TABLET PO (08:32)
[2024-10-24] MEDS: carvediloL 25 MG TABLET PO ×2 (08:33→20:27)
[2024-10-24] MEDS: Loratadine 10 MG TABLET PO (08:33)
[2024-10-24] MEDS: Leflunomide 10 MG TABLET PO (08:33)
[2024-10-24] MEDS: buPROPion HCl XL 150 MG TAB.ER.24H PO (08:33)
[2024-10-24] MEDS: cloNIDine HCL 0.1 MG TABLET PO ×2 (08:34→20:27)
[2024-10-24] MEDS: hydrALAZINE HCl 25 MG TABLET PO ×3 (08:34→20:26)
[2024-10-24] MEDS: NIFEdipine ER 30 MG TAB.ER.24 90 MG PO (08:37)
--- NOTE | 2024-10-24 10:12 | P.PNIM_ITS ---
Subjective Subjective Date of Service: 10/24/24 Interval History: f/u on fluid overload, heart failure, worsening advanced renal failure feels better, diuresing well iwth IV lasix drip. He has no sob, legs still swollen, Cr trending up a bit Physical Exam 2 Vital Signs: Vital Signs: Last Vital Signs Temp 98.8 F 10/24/24 08:00 Pulse 79 10/24/24 08:00 Resp 20 10/24/24 08:00 BP 159/74 H 10/24/24 08:00 Pulse Ox 97 10/24/24 08:00 O2 Del Method Room Air 10/24/24 08:00 BMI result Body Mass Index 32.4 Const: Other: General: AO X 3, no acute distress Resp: CTA bilateral, CVS: S1,S2,RRR, 2 +leg edema GI: +BS, NT, no distention Skin: No rash Neuro: motor grossly intact Psych: appropriate affect Objective Data Active Medications Acetaminophen (Acetaminophen 325 Mg Tablet) 975 mg PO Q6H PRN PRN Reason: Pain, Mild 1-3,fever,headache Last Admin: 10/23/24 00:30 Dose: 975 mg Documented By: GOLDEN Aripiprazole (Aripiprazole 2 Mg Tablet) 2 mg PO DAILY [facility] Last Admin: 10/24/24 08:32 Dose: 2 mg Documented By: ALTAGRACIA Atorvastatin Calcium (Atorvastatin Calcium 80 Mg Tablet) 80 mg PO BEDTIME [facility] Last Admin: 10/23/24 20:47 Dose: 80 mg Documented By: SEA Bupropion HCl (Bupropion Hcl Xl 150 Mg Tab.Er.24h) 150 mg PO DAILY [facility] Last Admin: 10/24/24 08:33 Dose: 150 mg Documented By: ALTAGRACIA Calcitriol (Calcitriol 0.25 Mcg Capsule) 0.25 mcg PO DAILY [facility] Last Admin: 10/24/24 08:32 Dose: 0.25 mcg Documented By: ALTAGRACIA Calcium Carbonate (Calcium Carbonate 750 Mg Tab.Chew) 750 mg PO Q4H PRN PRN Reason: Heartburn Carvedilol (Carvedilol 25 Mg Tablet) 25 mg PO BID [facility]; Protocol Last Admin: 10/24/24 08:33 Dose: 25 mg Documented By: ALTAGRACIA Clonidine HCl (Clonidine Hcl 0.1 Mg Tablet) 0.1 mg PO BID [facility]; Protocol Last Admin: 10/24/24 08:34 Dose: 0.1 mg Documented By: ALTAGRACIA Dextrose (Dextrose 50 % 25 Gm/50 Ml Syringe) 25 gm IVPUSH Q15M PRN; Protocol PRN Reason: per Hypoglycemia Standing Ord. Last Admin: 10/22/24 05:16 Dose: 25 gm Documented By: ISIDRO Comments: admin per provider glucose 58 Doxazosin Mesylate (Doxazosin Mesylate 2 Mg Tablet) 2 mg PO BEDTIME [facility]; Protocol Last Admin: 10/23/24 20:48 Dose: 2 mg Documented By: SEA Epoetin Derek-epbx (Epoetin Derek-Epbx 10,000 Unit/Ml Vial) 10,000 unit SUBCUT [id number] [facility] Last Admin: 10/23/24 20:49 Dose: 10,000 unit Documented By: SEA Comments: pharmacy brought up medication after 1999. Glucose (Glucose Gel 15 Gm Gel..Gram.) 15 gm PO Q15M PRN; Protocol PRN Reason: per Hypoglycemia Standing Ord. Heparin Sodium (Porcine) (Heparin Sodium,Porcine 5,000 Unit/Ml Vial) 5,000 unit SUBCUT Q8H [facility] Last Admin: 10/24/24 08:32 Dose: 5,000 unit Documented By: ALTAGRACIA Hydralazine HCl (Hydralazine Hcl 25 Mg Tablet) 25 mg PO TID [facility]; Protocol Last Admin: 10/24/24 08:34 Dose: 25 mg Documented By: ALTAGRACIA Hydralazine HCl (Hydralazine Hcl 20 Mg/Ml Vial) 10 mg IVPUSH Q6H PRN; Protocol PRN Reason: SBP >180 Last Admin: 10/22/24 17:50 Dose: 10 mg Documented By: PREETHI Furosemide 200 mg/ Sodium (Chloride) 100 mls @ 5 mls/hr IVCONT .Q20H [facility] Last Admin: 10/23/24 20:44 Dose: 10 mg/hr, 5 mls/hr Documented By: SEA Insulin Glargine (Insulin Glargine,Hum.Rec.Anlog 100 Unit/Ml 10 Ml Vial) 10 unit SUBCUT BEDTIME [facility] Last Admin: 10/23/24 22:05 Dose: Not Given Documented By: SEA Non-Admin Reason: Physician Held Med Insulin Human Lispro (Insulin Lispro 100 Unit/Ml 3 Ml Vial) 0 unit SUBCUT QIDACHS [facility]; Protocol Last Admin: 10/24/24 07:58 Dose: Not Given Documented By: ALTAGRACIA Non-Admin Reason: No Insulin Coverage Leflunomide (Leflunomide 10 Mg Tablet) 10 mg PO DAILY [facility] Last Admin: 10/24/24 08:33 Dose: 10 mg Documented By: ALTAGRACIA Loratadine (Loratadine 10 Mg Tablet) 10 mg PO DAILY [facility] Last Admin: 10/24/24 08:33 Dose: 10 mg Documented By: ALTAGRACIA Magnesium Hydroxide (Milk Of Magnesia 30 Ml Oral.Susp) 30 ml PO DAILY PRN PRN Reason: Constipation Melatonin (Melatonin 3 Mg Tablet) 6 mg PO BEDTIME PRN PRN Reason: Insomnia Methocarbamol (Methocarbamol 750 Mg Tablet) 750 mg PO Q6H PRN PRN Reason: muscle spasm Mirtazapine (Mirtazapine 15 Mg Tablet) 15 mg PO BEDTIME [facility] Last Admin: 10/23/24 20:48 Dose: 15 mg Documented By: SEA Nifedipine (Nifedipine Er 30 Mg Tab.Er.24) 90 mg PO DAILY [facility]; Protocol Last Admin: 10/24/24 08:37 Dose: 90 mg Documented By: ALTAGRACIA Ondansetron HCl (Ondansetron Hcl 4 Mg/2 Ml Vial) 4 mg IVPUSH Q8H PRN PRN Reason: Nausea and Vomiting Sertraline HCl (Sertraline Hcl 50 Mg Tablet) 50 mg PO DAILY [facility] Last Admin: 10/24/24 08:32 Dose: 50 mg Documented By: ALTAGRACIA Sevelamer Carbonate (Sevelamer Carbonate Tablet 800 Mg Tablet) 800 mg PO TIDWM [facility] Last Admin: 10/24/24 08:32 Dose: 800 mg Documented By: ALTAGRACIA Sodium Bicarbonate (Sodium Bicarbonate 650 Mg Tablet) 1,300 mg PO BID [facility] Last Admin: 10/24/24 08:32 Dose: 1,300 mg Documented By: ALTAGRACIA Sodium Chloride (0.9 % Sodium Chloride Flush 3 Ml Syringe) 3 ml IVFLUSH QSHIFT [facility] Last Admin: 10/24/24 08:35 Dose: Not Given Documented By: ALTAGRACIA Non-Admin Reason: IV Running Sodium Zirconium Cyclosilicate (Sodium Zirconium Cyclosilicate 10 Gm Powd.Pack) 10 gm PO DAILY [facility] Last Admin: 10/24/24 08:40 Dose: Not Given Documented By: ALTAGRACIA Non-Admin Reason: Physician Held Med Trazodone HCl (Trazodone Hcl 50 Mg Tablet) 50 mg PO BEDTIME [facility] Last Admin: 10/23/24 20:49 Dose: 50 mg Documented By: SEA Vitamin D (Cholecalciferol (Vitamin D3) 25 Mcg Tablet) 125 mcg PO DAILY [facility] Last Admin: 10/24/24 08:32 Dose: 125 mcg Documented By: ALTAGRACIA Zolpidem Tartrate (Zolpidem Tartrate 5 Mg Tablet) 10 mg PO BEDTIME [facility] Last Admin: 10/23/24 20:48 Dose: 10 mg Documented By: SEA Labs 10/24/24 07:52 10/24/24 07:52 Labs: Laboratory Results - last 24 hr 10/23/24 10/23/24 10/23/24 11:06 15:43 20:47 MCV MCH MCHC RDW Plt Count MPV Immature Gran % (Auto) Neut % (Auto) Lymph % (Auto) [place] % (Auto) Eos % (Auto) Baso % (Auto) Lymph # (Auto) [place] # (Auto) Eos # (Auto) Baso # (Auto) Abs Immat Gran (auto) Absolute Neuts (auto) Absolute Nucleated RBC Nucleated RBC % (auto) Anion Gap Estim Creat Clear Calc Estimated GFR POC Glucose 99 104 105 Random Glucose Calcium 10/24/24 10/24/24 07:14 07:52 MCV 88.5 MCH 28.4 MCHC 32.0 RDW 15.4 Plt Count 131 L MPV 10.2 Immature Gran % (Auto) 0.0 Neut % (Auto) 55.7 Lymph % (Auto) 29.5 [place] % (Auto) 8.8 Eos % (Auto) 5.7 H Baso % (Auto) 0.3 Lymph # (Auto) 1.0 L [place] # (Auto) 0.3 Eos # (Auto) 0.2 Baso # (Auto) 0.0 Abs Immat Gran (auto) 0.00 Absolute Neuts (auto) 2.0 Absolute Nucleated RBC 0.000 Nucleated RBC % (auto) 0.0 Anion Gap 14 Estim Creat Clear Calc 14.2 Estimated GFR 9 POC Glucose 66 Random Glucose 64 Calcium 7.7 L Assessment and Plan (1) Chronic HFrEF (heart failure with reduced ejection fraction): Status: Acute (2) Diabetes: Status: Acute Plan Patient is a 59-year-old male with a past medical history significant for RACHEL on CPAP, HFrEF (echo 09/08 EF 45-50%), IDDM, HTN, mixed hyperlipidemia, CKD4, who presented to the ED due to bilateral upper extremity and lower extremity edema with shortness of breath, orthopnea and dyspnea on exertion for the past week. 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 IDDM, lantus 10 qhs at home, ssi, had hypoglycemia this morning, reduce lantus to 5 HTN, high but overall better continue home meds (coreg, nifedipine, clonidine, hydralazine) Anemia of chronic disease of ckd, no indication for transfusion, started on epogen, h/h low but stable left arm swelling yesterday, d/t infiltrated iv, much better today, prn kpad RACHEL CPAP at bedtime HLD -continue home meds full code VTE prophy: heparin patient with acute on chronic HFrEF exacerbation with anasarca and CKD for progression, requiring admission for at least 2 midnight stay for IV diuresis, Cardiology and Nephrology consultation. Quality Stroke Does the patient have a stroke diagnosis?: No VTE Prior VTE?: No VTE Risk Level:: Medical - moderate - high VTE Device Contraindication: Treatment Not Indicated VTE Drug Contraindication: N/A - Med Ordered
[2024-10-24 11:42] LABS: Glucose, Whole Blood 92 mg/dL (60-115)
--- NOTE | 2024-10-24 14:23 | PM.PNNEP ---
Subjective Subjective Date of Service: 10/24/24 Interval history: f/u on fluid overload, heart failure, worsening advanced renal failure Edema improving in upper extremities and face but still has some lower extremity swelling He feels better Physical Exam Vital Signs: Vital Signs: Last Vital Signs Temp 97.8 F 10/24/24 11:35 Pulse 68 10/24/24 11:35 Resp 18 10/24/24 11:35 BP 139/71 10/24/24 11:35 Pulse Ox 96 10/24/24 11:35 O2 Del Method Room Air 10/24/24 11:35 BMI result Body Mass Index 32.4 General: Not a acute distress, somewhat ill appearing and tired appearing Nutritional Appearance: well nourished and overweight Eyes: appearance normal, both eyes and all related structures; Alignment and Position: alignment normal and position normal Neck: No lymphadenopathy, no thyromegaly Resp: bilateral air entry equal, occasional added sounds present mostly in the lung base Cardio: Regular rate, regular rhythm; Heart sounds: S1 normal heart sound present and S2 normal heart sound present, edema ++ in lower extremities GI: soft, nontender, no guarding, no hepatosplenomegaly : bladder normal to inspection, bladder normal to palpation, no renal angle tenderness Skin: no rashes or lesions noted and elasticity normal Neuro: oriented to person, oriented to place, oriented to time and moves all extremities Objective Data Labs 10/24/24 07:52 10/24/24 07:52 Labs: Laboratory Results - last 24 hr 10/23/24 10/23/24 10/24/24 15:43 20:47 07:14 WBC RBC Hgb Hct MCV MCH MCHC RDW Plt Count MPV Immature Gran % (Auto) Neut % (Auto) Lymph % (Auto) [place] % (Auto) Eos % (Auto) Baso % (Auto) Lymph # (Auto) [place] # (Auto) Eos # (Auto) Baso # (Auto) Abs Immat Gran (auto) Absolute Neuts (auto) Absolute Nucleated RBC Nucleated RBC % (auto) Sodium Potassium Chloride Carbon Dioxide Anion Gap BUN Creatinine Estim Creat Clear Calc Estimated GFR POC Glucose 104 105 66 Random Glucose Calcium 10/24/24 10/24/24 07:52 11:38 WBC 3.5 L RBC 2.61 L Hgb 7.4 L Hct 23.1 L MCV 88.5 MCH 28.4 MCHC 32.0 RDW 15.4 Plt Count 131 L MPV 10.2 Immature Gran % (Auto) 0.0 Neut % (Auto) 55.7 Lymph % (Auto) 29.5 [place] % (Auto) 8.8 Eos % (Auto) 5.7 H Baso % (Auto) 0.3 Lymph # (Auto) 1.0 L [place] # (Auto) 0.3 Eos # (Auto) 0.2 Baso # (Auto) 0.0 Abs Immat Gran (auto) 0.00 Absolute Neuts (auto) 2.0 Absolute Nucleated RBC 0.000 Nucleated RBC % (auto) 0.0 Sodium 139 Potassium 4.8 Chloride 111 H Carbon Dioxide 19 L Anion Gap 14 BUN 76 H Creatinine 6.13 H* Estim Creat Clear Calc 14.2 Estimated GFR 9 POC Glucose 92 Random Glucose 64 Calcium 7.7 L Procedures Date of Service Date of Service: 10/24/24 Assessment & Plan Assessment and plan (1) Hypertension: Status: Acute (2) CKD (chronic kidney disease) stage 4, GFR 15-29 ml/min: Status: Acute (3) Anemia of chronic disease: Status: Acute (4) RACHEL (obstructive sleep apnea): Status: Acute (5) Anasarca: Status: Acute Plan Chronic kidney disease stage 5 - possibly due to poorly controlled hypertension and diabetes mellitus - creatinine slowly trending up but not much difference in GFR - volume status is on the higher side- we will switch Lasix drip to intermittent Lasix pushes 80 mg q.8 hours. No emergent indication for renal replacement therapy. Explained him the signs and symptoms of uremia and volume overload when the dialysis needs to be initiated - Urinalysis shows 4+ proteinuria possibly due to advanced CKD, 50 WBCs no RBCs - Renal ultrasound shows bilateral enlarged kidneys around 11 cm each possibly secondary to diabetic kidney disease - monitor renal function daily - avoid nephrotoxic medications not limited to NSAIDs, contrast etc. - dose all the medications as per GFR Electrolyte disorder: Hyperkalemia improved, we will stop Lokelma. Acid-base disorder: High anion gap metabolic acidosis secondary to advanced kidney disease Continue sodium bicarbonate, we will decrease to 650 TID as sodium might be contributing to volume retention Hypertension: -better controlled today after starting several medications yesterday - continue carvedilol, hydralazine, clonidine and nifedipine. Can go up on the dose of hydralazine if needed Anemia of chronic kidney disease: - ferritin 380, transferrin saturation 29 - started the patient on erythropoietin 75740 units 3 times a week - transfuse for hemoglobin less than 7 grams/deciliter Mineral bone disease: - calcium 7.7 with PTH 192- continue calcitriol - phos 5.6- continue sevelamer 800 t.i.d. Thanks for your consult, we will continue to follow-up this patient with you. Time Spent With Patient Time: Total time managing care of this patient today ____ minutes. Progress Note: Quality Stroke Does the patient have a stroke diagnosis?: No
[2024-10-24] MEDS: Furosemide 100 MG/10 ML VIAL 80 MG IVPUSH ×2 (15:50→20:27)
[2024-10-24] MEDS: 0.9 % Sodium Chloride Flush 3 ML SYRINGE IVFLUSH ×2 (15:51→20:28)
[2024-10-24 16:30] LABS: Glucose, Whole Blood 109 mg/dL (60-115)
[2024-10-24 20:25] LABS: Glucose, Whole Blood 104 mg/dL (60-115)
[2024-10-24] MEDS: Doxazosin Mesylate 2 MG TABLET PO (20:26)
[2024-10-24] MEDS: Zolpidem Tartrate 5 MG TABLET 10 MG PO (20:27)
[2024-10-24] MEDS: Sodium Bicarbonate 650 MG TABLET PO (20:27)
[2024-10-24] MEDS: Atorvastatin Calcium 80 MG TABLET PO (20:27)
[2024-10-24] MEDS: traZODone HCL 50 MG TABLET PO (20:27)
[2024-10-24] MEDS: Mirtazapine 15 MG TABLET PO (20:27)
[2024-10-24] MEDS: Insulin Glargine,Hum.rec.anlog 100 UNIT/ML 10 ML VIAL SUBCUT (20:46)
[2024-10-25] VITALS (10 sets, daily range): BP systolic 140–181; BP diastolic 75–92; PULSE 68–95; RESP 16–20; TEMP 36.4–37.4; O2SAT 94–98; BMI 33.2
[2024-10-25 07:47] LABS: Hematocrit 22.4 % (42.0-52.0); Hemoglobin 7.2 g/dl (14.0-18.0); Mean Corpuscular HGB Conc 32.1 g/dl (31.0-36.0); Mean Corpuscular Hemoglobin 28.7 pg (27.0-33.0); Mean Corpuscular Volume 89.2 fL (80.0-98.0); Platelet Count 141 X10*3/uL (160-400); Red Blood Count 2.51 X10*6/uL (4.60-5.80); Red Cell Distribution Width 15.3 % (11.0-16.0)
[2024-10-25 08:10] LABS: Glucose, Whole Blood 59 mg/dL (60-115)
[2024-10-25 08:10] LABS: Glucose, Whole Blood 102 mg/dL (60-115)
[2024-10-25 08:28] LABS: Anion Gap 17 (12-20); Blood Urea Nitrogen 80 mg/dL (9-16); Calcium 7.7 mg/dL (8.4-10.2); Carbon Dioxide 18 mmol/L (22-29); Chloride 111 mmol/L (96-108); Creatinine Clr Calc Pharmacy 14.3; Estimated Glomerular Filt Rate 9; Glucose Random 55 mg/dL (60-115); Potassium 4.9 mmol/L (3.3-5.1); Sodium 141 mmol/L (135-145)
[2024-10-25] MEDS: Heparin Sodium,Porcine 5,000 UNIT/ML VIAL 5000 UNIT SUBCUT ×3 (08:40→21:33)
[2024-10-25] MEDS: Furosemide 100 MG/10 ML VIAL 80 MG IVPUSH ×2 (08:42→15:30)
[2024-10-25] MEDS: calcitrioL 0.25 MCG CAPSULE PO (08:43)
[2024-10-25] MEDS: cloNIDine HCL 0.1 MG TABLET PO ×2 (08:43→21:27)
[2024-10-25] MEDS: hydrALAZINE HCl 25 MG TABLET PO (08:44)
[2024-10-25] MEDS: ARIPiprazole 2 MG TABLET PO (08:44)
[2024-10-25] MEDS: Leflunomide 10 MG TABLET PO (08:44)
[2024-10-25] MEDS: Sevelamer Carbonate Tablet 800 MG TABLET PO ×3 (08:44→16:44)
[2024-10-25] MEDS: Loratadine 10 MG TABLET PO (08:44)
[2024-10-25] MEDS: Sertraline HCL 50 MG TABLET PO (08:44)
[2024-10-25] MEDS: buPROPion HCl XL 150 MG TAB.ER.24H PO (08:44)
[2024-10-25] MEDS: carvediloL 25 MG TABLET PO ×2 (08:44→21:28)
[2024-10-25] MEDS: Cholecalciferol (Vitamin D3) 25 MCG TABLET 125 MCG PO (08:44)
[2024-10-25] MEDS: Sodium Bicarbonate 650 MG TABLET PO ×2 (08:44→21:27)
[2024-10-25] MEDS: NIFEdipine ER 30 MG TAB.ER.24 90 MG PO (08:45)
[2024-10-25] MEDS: 0.9 % Sodium Chloride Flush 3 ML SYRINGE IVFLUSH ×2 (08:48→16:47)
--- NOTE | 2024-10-25 09:24 | P.PNIM_ITS ---
Subjective Subjective Date of Service: 10/25/24 Interval History: f/u on fluid overload, heart failure, worsening advanced renal failure feels better, diuresing well iwth IV lasix drip. He has no sob, legs still swollen, Cr trending up a bit, but overall stable, lasix drip changed lasix push 80 tid yesterday, so far negativ 8 liters Physical Exam 2 Vital Signs: Vital Signs: Last Vital Signs Temp 98.4 F 10/25/24 07:35 Pulse 82 10/25/24 07:35 Resp 18 10/25/24 07:35 BP 178/86 H 10/25/24 07:35 Pulse Ox 94 10/25/24 07:35 O2 Del Method Room Air 10/25/24 07:35 BMI result Body Mass Index 33.2 Const: Other: General: AO X 3, no acute distress Resp: CTA bilateral, CVS: S1,S2,RRR, 2 +leg edema GI: +BS, NT, no distention Skin: No rash Neuro: motor grossly intact Psych: appropriate affect Objective Data Active Medications Acetaminophen (Acetaminophen 325 Mg Tablet) 975 mg PO Q6H PRN PRN Reason: Pain, Mild 1-3,fever,headache Last Admin: 10/23/24 00:30 Dose: 975 mg Documented By: GOLDEN Aripiprazole (Aripiprazole 2 Mg Tablet) 2 mg PO DAILY [facility] Last Admin: 10/25/24 08:44 Dose: 2 mg Documented By: ALTAGRACIA Atorvastatin Calcium (Atorvastatin Calcium 80 Mg Tablet) 80 mg PO BEDTIME [facility] Last Admin: 10/24/24 20:27 Dose: 80 mg Documented By: SEA Bupropion HCl (Bupropion Hcl Xl 150 Mg Tab.Er.24h) 150 mg PO DAILY [facility] Last Admin: 10/25/24 08:44 Dose: 150 mg Documented By: ALTAGRACIA Calcitriol (Calcitriol 0.25 Mcg Capsule) 0.25 mcg PO DAILY [facility] Last Admin: 10/25/24 08:43 Dose: 0.25 mcg Documented By: ALTAGRACIA Calcium Carbonate (Calcium Carbonate 750 Mg Tab.Chew) 750 mg PO Q4H PRN PRN Reason: Heartburn Carvedilol (Carvedilol 25 Mg Tablet) 25 mg PO BID [facility]; Protocol Last Admin: 10/25/24 08:44 Dose: 25 mg Documented By: ALTAGRACIA Clonidine HCl (Clonidine Hcl 0.1 Mg Tablet) 0.1 mg PO BID [facility]; Protocol Last Admin: 10/25/24 08:43 Dose: 0.1 mg Documented By: ALTAGRACIA Dextrose (Dextrose 50 % 25 Gm/50 Ml Syringe) 25 gm IVPUSH Q15M PRN; Protocol PRN Reason: per Hypoglycemia Standing Ord. Last Admin: 10/22/24 05:16 Dose: 25 gm Documented By: ISIDRO Comments: admin per provider glucose 58 Doxazosin Mesylate (Doxazosin Mesylate 2 Mg Tablet) 2 mg PO BEDTIME [facility]; Protocol Last Admin: 10/24/24 20:26 Dose: 2 mg Documented By: SEA Epoetin Derek-epbx (Epoetin Derek-Epbx 10,000 Unit/Ml Vial) 10,000 unit SUBCUT [id number] [facility] Last Admin: 10/23/24 20:49 Dose: 10,000 unit Documented By: SEA Comments: pharmacy brought up medication after 1999. Furosemide (Furosemide 100 Mg/10 Ml Vial) 80 mg IVPUSH TID [facility]; Protocol Last Admin: 10/25/24 08:42 Dose: 80 mg Documented By: ALTAGRACIA Glucose (Glucose Gel 15 Gm Gel..Gram.) 15 gm PO Q15M PRN; Protocol PRN Reason: per Hypoglycemia Standing Ord. Heparin Sodium (Porcine) (Heparin Sodium,Porcine 5,000 Unit/Ml Vial) 5,000 unit SUBCUT Q8H [facility] Last Admin: 10/25/24 08:40 Dose: 5,000 unit Documented By: ALTAGRACIA Hydralazine HCl (Hydralazine Hcl 25 Mg Tablet) 25 mg PO TID [facility]; Protocol Last Admin: 10/25/24 08:44 Dose: 25 mg Documented By: ALTAGRACIA Hydralazine HCl (Hydralazine Hcl 20 Mg/Ml Vial) 10 mg IVPUSH Q6H PRN; Protocol PRN Reason: SBP >180 Last Admin: 10/22/24 17:50 Dose: 10 mg Documented By: PREETHI Insulin Glargine (Insulin Glargine,Hum.Rec.Anlog 100 Unit/Ml 10 Ml Vial) 5 unit SUBCUT BEDTIME [facility] Last Admin: 10/24/24 20:46 Dose: 5 unit Documented By: SEA Insulin Human Lispro (Insulin Lispro 100 Unit/Ml 3 Ml Vial) 0 unit SUBCUT QIDACHS [facility]; Protocol Last Admin: 10/25/24 08:32 Dose: Not Given Documented By: ALTAGRACIA Non-Admin Reason: No Insulin Coverage Leflunomide (Leflunomide 10 Mg Tablet) 10 mg PO DAILY [facility] Last Admin: 10/25/24 08:44 Dose: 10 mg Documented By: ALTAGRACIA Loratadine (Loratadine 10 Mg Tablet) 10 mg PO DAILY [facility] Last Admin: 10/25/24 08:44 Dose: 10 mg Documented By: ALTAGRACIA Magnesium Hydroxide (Milk Of Magnesia 30 Ml Oral.Susp) 30 ml PO DAILY PRN PRN Reason: Constipation Melatonin (Melatonin 3 Mg Tablet) 6 mg PO BEDTIME PRN PRN Reason: Insomnia Methocarbamol (Methocarbamol 750 Mg Tablet) 750 mg PO Q6H PRN PRN Reason: muscle spasm Mirtazapine (Mirtazapine 15 Mg Tablet) 15 mg PO BEDTIME [facility] Last Admin: 10/24/24 20:27 Dose: 15 mg Documented By: SEA Nifedipine (Nifedipine Er 30 Mg Tab.Er.24) 90 mg PO DAILY [facility]; Protocol Last Admin: 10/25/24 08:45 Dose: 90 mg Documented By: ALTAGRACIA Ondansetron HCl (Ondansetron Hcl 4 Mg/2 Ml Vial) 4 mg IVPUSH Q8H PRN PRN Reason: Nausea and Vomiting Sertraline HCl (Sertraline Hcl 50 Mg Tablet) 50 mg PO DAILY [facility] Last Admin: 10/25/24 08:44 Dose: 50 mg Documented By: ALTAGRACIA Sevelamer Carbonate (Sevelamer Carbonate Tablet 800 Mg Tablet) 800 mg PO TIDWM [facility] Last Admin: 10/25/24 08:44 Dose: 800 mg Documented By: ALTAGRACIA Sodium Bicarbonate (Sodium Bicarbonate 650 Mg Tablet) 650 mg PO BID [facility] Last Admin: 10/25/24 08:44 Dose: 650 mg Documented By: ALTAGRACIA Sodium Chloride (0.9 % Sodium Chloride Flush 3 Ml Syringe) 3 ml IVFLUSH QSHIFT [facility] Last Admin: 10/25/24 08:48 Dose: 3 ml Documented By: ALTAGRACIA Trazodone HCl (Trazodone Hcl 50 Mg Tablet) 50 mg PO BEDTIME [facility] Last Admin: 10/24/24 20:27 Dose: 50 mg Documented By: SEA Vitamin D (Cholecalciferol (Vitamin D3) 25 Mcg Tablet) 125 mcg PO DAILY [facility] Last Admin: 10/25/24 08:44 Dose: 125 mcg Documented By: ALTAGRACIA Zolpidem Tartrate (Zolpidem Tartrate 5 Mg Tablet) 10 mg PO BEDTIME [facility] Last Admin: 10/24/24 20:27 Dose: 10 mg Documented By: SEA Labs 10/25/24 06:49 10/25/24 06:49 Labs: Laboratory Results - last 24 hr 10/24/24 10/24/24 10/24/24 11:38 16:26 20:19 MCV MCH MCHC RDW Plt Count MPV Absolute Nucleated RBC Nucleated RBC % (auto) Anion Gap Estim Creat Clear Calc Estimated GFR POC Glucose 92 109 104 Random Glucose Calcium Blood Type Antibody Screen 10/25/24 10/25/24 10/25/24 06:49 07:45 08:07 MCV 89.2 MCH 28.7 MCHC 32.1 RDW 15.3 Plt Count 141 L MPV 11.0 Absolute Nucleated RBC 0.000 Nucleated RBC % (auto) 0.0 Anion Gap 17 Estim Creat Clear Calc 14.3 Estimated GFR 9 POC Glucose 59 L* 102 Random Glucose 55 L* Calcium 7.7 L Blood Type A Positive Antibody Screen NEGATIVE Assessment and Plan (1) Chronic HFrEF (heart failure with reduced ejection fraction): Status: Acute (2) Diabetes: Status: Acute Plan Patient is a 59-year-old male with a past medical history significant for RACHEL on CPAP, HFrEF (echo 09/08 EF 45-50%), IDDM, HTN, mixed hyperlipidemia, CKD4, who presented to the ED due to bilateral upper extremity and lower extremity edema with shortness of breath, orthopnea and dyspnea on exertion for the past week. anasarca secondary to acute on chronic HFrEF exacerbation, echo 09/08 with EF 45- 50% continue lasix drip at 10 mg/hr, so far negative 7 liter. Drip stopped 10/24 and lasix IV 80 tid added nephrology following, Cr is 6.13 from 5.7 yesterday, today 6.8 monitor i/o, electrolytes Hyperkalemia, resolved. 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 IDDM, lantus 10 qhs at home, ssi, had hypoglycemia this morning, hypoglycemia last 3 mornings, stop lantus HTN, high but overall better, but still high continue home meds (coreg, nifedipine, clonidine, hydralazine--increasse to 50 tid) Anemia of chronic disease of ckd, no indication for transfusion, started on epogen, h/h low but stable left arm swelling yesterday, d/t infiltrated iv, much better today, prn kpad RACHEL CPAP at bedtime HLD -continue home meds full code VTE prophy: heparin patient with acute on chronic HFrEF exacerbation with anasarca and CKD for progression, requiring admission for at least 2 midnight stay for IV diuresis, Cardiology and Nephrology consultation. Quality Stroke Does the patient have a stroke diagnosis?: No VTE Prior VTE?: No VTE Risk Level:: Medical - moderate - high VTE Device Contraindication: Treatment Not Indicated VTE Drug Contraindication: N/A - Med Ordered
[2024-10-25 11:58] LABS: Glucose, Whole Blood 97 mg/dL (60-115)
--- NOTE | 2024-10-25 13:08 | P.PNCC_ITS ---
Subjective Subjective Date of Service: 10/25/24 Interval History: Continues to have good urine output-1.1 L yesterday, decreasing swelling Critical Care Time (minutes): 35 Physical Exam 2 Vital Signs: Vital Signs: Last Vital Signs Temp 98.2 F 10/25/24 12:03 Pulse 72 10/25/24 12:03 Resp 18 10/25/24 12:03 BP 140/77 H 10/25/24 12:03 Pulse Ox 98 10/25/24 11:24 O2 Del Method Room Air 10/25/24 11:24 BMI result Body Mass Index 33.2 General: Middle-aged male in no acute distress sitting in the chair and eating his lunch Nutritional Appearance: well nourished and overweight Eyes: appearance normal, both eyes and all related structures; Alignment and Position: alignment normal and position normal Neck: No lymphadenopathy, no thyromegaly Resp: bilateral air entry equal, crackles heard in lung bases Cardio: Regular rate, regular rhythm; Heart sounds: S1 normal heart sound present and S2 normal heart sound present GI: soft, nontender, no guarding, no hepatosplenomegaly : bladder normal to inspection, bladder normal to palpation, no renal angle tenderness Skin: no rashes or lesions noted and elasticity normal Neuro: oriented to person, oriented to place, oriented to time and moves all extremities Objective Data Labs 10/25/24 06:49 10/25/24 06:49 Labs: Laboratory Results - last 24 hr 10/24/24 10/24/24 10/25/24 16:26 20:19 06:49 WBC 4.0 L RBC 2.51 L Hgb 7.2 L Hct 22.4 L MCV 89.2 MCH 28.7 MCHC 32.1 RDW 15.3 Plt Count 141 L MPV 11.0 Absolute Nucleated RBC 0.000 Nucleated RBC % (auto) 0.0 Sodium 141 Potassium 4.9 Chloride 111 H Carbon Dioxide 18 L Anion Gap 17 BUN 80 H Creatinine 6.18 H* Estim Creat Clear Calc 14.3 Estimated GFR 9 POC Glucose 109 104 Random Glucose 55 L* Calcium 7.7 L Blood Type A Positive Antibody Screen NEGATIVE Crossmatch See Detail 10/25/24 10/25/24 10/25/24 07:45 08:07 11:20 WBC RBC Hgb Hct MCV MCH MCHC RDW Plt Count MPV Absolute Nucleated RBC Nucleated RBC % (auto) Sodium Potassium Chloride Carbon Dioxide Anion Gap BUN Creatinine Estim Creat Clear Calc Estimated GFR POC Glucose 59 L* 102 97 Random Glucose Calcium Blood Type Antibody Screen Crossmatch Progress Note: A&P Assessment and plan (1) Anemia of chronic disease: Status: Acute (2) CKD (chronic kidney disease) stage 4, GFR 15-29 ml/min: Status: Acute (3) Chronic kidney disease: Status: Acute (4) Anasarca: Status: Acute Plan Chronic kidney disease stage 5 - possibly due to poorly controlled hypertension and diabetes mellitus - creatinine slowly trending up but not much difference in GFR - volume status is on the higher side- we will switch him from Lasix 80 mg q.8 pushes to Bumex 3mg BID per oral and we will look for response. No emergent indication for renal replacement therapy. Explained him the signs and symptoms of uremia and volume overload when the dialysis needs to be initiated. Also talked to him about options of renal transplant including cadaveric donor and living donor, he stated he has large family and friends and possibly might get a living donor. His blood group is A positive. - Urinalysis shows 4+ proteinuria possibly due to advanced CKD, 50 WBCs no RBCs - Renal ultrasound shows bilateral enlarged kidneys around 11 cm each possibly secondary to diabetic kidney disease - monitor renal function daily - avoid nephrotoxic medications not limited to NSAIDs, contrast etc. - dose all the medications as per GFR Acid-base disorder: High anion gap metabolic acidosis secondary to advanced kidney disease Continue sodium bicarbonate, we will decrease to 650 TID as sodium might be contributing to volume retention Hypertension: -better controlled today after starting several medications - continue carvedilol, hydralazine, clonidine and nifedipine. Can go up on the dose of hydralazine if needed Anemia of chronic kidney disease: - ferritin 380, transferrin saturation 29 - avoid transfusions unless absolutely needed to decrease antigenic exposure in case if he needs transplant - started the patient on erythropoietin 09574 units 3 times a week - transfuse for hemoglobin less than 7 grams/deciliter Mineral bone disease: - calcium 7.7 with PTH 192- continue calcitriol - phos 5.6- continue sevelamer 800 t.i.d. Quality Stroke Does the patient have a stroke diagnosis?: No VTE Prior VTE?: No VTE Risk Level:: Medical - moderate - high VTE Device Contraindication: Treatment Not Indicated VTE Drug Contraindication: N/A - Med Ordered
[2024-10-25] MEDS: hydrALAZINE HCl 50 MG TABLET PO ×2 (15:20→21:27)
[2024-10-25 16:03] LABS: Glucose, Whole Blood 97 mg/dL (60-115)
--- NOTE | 2024-10-25 18:23 | PC.NURSE ---
Assumed care at 15:00. Blood transfusion in process at a recommended rate of 85 mL/hr due to pts risk of fluid overload. Transfusion stopped 17:45. Blood bank contacted at 17:45. Transfusion tubing disconnected from IV. VS documented WNL. Pt denies any adverse symptoms at this time. Blood discarded per blood bank in red biohazard bag. Nursing supervisor intelligence analyst notified. notified.
--- NOTE | 2024-10-25 18:49 | P.CDIM_ITS ---
PROVIDER RESPONSE TEXT: To clarify, the appropriate diagnosis supported by the clinical indicators: Pancytopenia: suspectes QUERY TEXT: PHYSICIAN'S DOCUMENTATION REQUEST Date of Query: 10/22/2024 11:59 AM EDT Patient Name: Dillon Lucio Admit Date: 10/22/2024 Dear Dashawn Juárez MD, A review of the medical record indicates additional documentation may be needed. Please review below and update the documentation accordingly. Clinical Indicators: LABS: WBC 3.8 4.0 RBC 2.45 2.58 PLT 119 L 121 L Anemia, fatigue, SOB, orthopnea Based on the above, is there a diagnosis that correlates with these findings: Pancytopenia possible, probable, suspected, etc. Other specified (specify type) Other (explain) Clinically unable to determine (explain) Thank you, Lily Manzo, CCS, CDIS Use of terms such as suspected, likely, concern for, or probable (associated with a specific diagnosi s that is being evaluated, monitored, or treated as if it exists) are acceptable and can be coded in the inpatient se tting, when documented at the time of discharge. Please use your independent medical judgment in providing your response. THIS QUERY IS PART OF THE PERMANENT MEDICAL RECORD
[2024-10-25 21:08] LABS: Glucose, Whole Blood 93 mg/dL (60-115)
[2024-10-25] MEDS: Doxazosin Mesylate 2 MG TABLET PO (21:27)
[2024-10-25] MEDS: Mirtazapine 15 MG TABLET PO (21:27)
[2024-10-25] MEDS: Atorvastatin Calcium 80 MG TABLET PO (21:27)
[2024-10-25] MEDS: traZODone HCL 50 MG TABLET PO (21:27)
[2024-10-25] MEDS: Zolpidem Tartrate 5 MG TABLET 10 MG PO (21:28)
[2024-10-26 00:41] VITALS: RESP 16
[2024-10-26 04:00] VITALS: BP 165/79; PULSE 73; RESP 16; TEMP 36.7; O2SAT 95
[2024-10-26 06:00] VITALS: BMI 33.1
[2024-10-26 06:32] LABS: Anion Gap 14 (12-20); Blood Urea Nitrogen 84 mg/dL (9-16); Calcium 7.7 mg/dL (8.4-10.2); Carbon Dioxide 18 mmol/L (22-29); Chloride 111 mmol/L (96-108); Creatinine Clr Calc Pharmacy 13.9; Estimated Glomerular Filt Rate 9; Glucose Random 60 mg/dL (60-115); Potassium 4.7 mmol/L (3.3-5.1); Sodium 138 mmol/L (135-145)
[2024-10-26 07:44] LABS: Glucose, Whole Blood 63 mg/dL (60-115)
[2024-10-26 08:00] VITALS: BP 172/84; PULSE 77; RESP 17; TEMP 37.2; O2SAT 96
[2024-10-26] MEDS: Bumetanide 1 MG TABLET 3 MG PO (08:27)
[2024-10-26] MEDS: hydrALAZINE HCl 50 MG TABLET PO ×2 (08:28→15:16)
[2024-10-26] MEDS: Cholecalciferol (Vitamin D3) 25 MCG TABLET 125 MCG PO (08:28)
[2024-10-26] MEDS: buPROPion HCl XL 150 MG TAB.ER.24H PO (08:29)
[2024-10-26] MEDS: NIFEdipine ER 30 MG TAB.ER.24 90 MG PO (08:29)
[2024-10-26] MEDS: cloNIDine HCL 0.1 MG TABLET PO (08:29)
[2024-10-26] MEDS: Sertraline HCL 50 MG TABLET PO (08:29)
[2024-10-26] MEDS: carvediloL 25 MG TABLET PO (08:29)
[2024-10-26] MEDS: calcitrioL 0.25 MCG CAPSULE PO (08:29)
[2024-10-26] MEDS: ARIPiprazole 2 MG TABLET PO (08:30)
[2024-10-26] MEDS: Sodium Bicarbonate 650 MG TABLET PO (08:30)
[2024-10-26] MEDS: Loratadine 10 MG TABLET PO (08:30)
[2024-10-26] MEDS: Leflunomide 10 MG TABLET PO (08:30)
[2024-10-26] MEDS: Sevelamer Carbonate Tablet 800 MG TABLET PO ×2 (08:30→12:11)
[2024-10-26] MEDS: Heparin Sodium,Porcine 5,000 UNIT/ML VIAL 5000 UNIT SUBCUT (08:37)
[2024-10-26] MEDS: 0.9 % Sodium Chloride Flush 3 ML SYRINGE IVFLUSH (08:38)
--- NOTE | 2024-10-26 09:45 | P.PNNP_ITS ---
Subjective Subjective Date of Service: 10/26/24 Interval history: creatinine 5.39 on presentation 10/21; trending up 6.33 11/04; GFR remains stable. recently transitioned from lasix drip to oral bumex patient reports he feels good today, no complaints/concerns. H&H 7.3 & 22.5, iron stores adequate potassium level normal today at 4.7 calcium 7.7, phosphorous 5.6, PTH 192 - he is on cinacalcet 0.25mg daily (also as outpatient). renal imaging shows enlarged bilateral kidneys, otherwise unremarkable without hydronephrosis or calculi. Physical Exam 2 Vital Signs: Vital Signs: Last Vital Signs Temp 98.9 F 10/26/24 11:54 Pulse 71 10/26/24 11:54 Resp 16 10/26/24 11:54 BP 152/74 H 10/26/24 11:54 Pulse Ox 97 10/26/24 11:54 O2 Del Method Room Air 10/26/24 11:54 BMI result Body Mass Index 33.1 Const: General: no acute distress, alert and awake Resp: Effort & Inspection: normal respiratory effort Auscultation: clear to auscultation bilaterally Cardio: Rate: regular rate Rhythm: regular rhythm GI: Inspection: Yes Abdominal wall edema Palpation (GI): Soft to palpation and nontender : General: Yes no CVA tenderness Back/Spine/Pelvis: Back: no CVA tenderness Skin: Rashes: no rashes Extrem: General: Yes edema (BUE and BLE pitting edema) Objective Data Labs 10/25/24 06:49 10/26/24 05:54 Labs: Laboratory Results - last 24 hr 10/25/24 10/25/24 10/25/24 06:49 15:58 21:03 Sodium Potassium Chloride Carbon Dioxide Anion Gap BUN Creatinine Estim Creat Clear Calc Estimated GFR POC Glucose 97 93 Random Glucose Calcium Crossmatch See Detail 10/26/24 10/26/24 10/26/24 05:54 07:37 11:53 Sodium 138 Potassium 4.7 Chloride 111 H Carbon Dioxide 18 L Anion Gap 14 BUN 84 H Creatinine 6.33 H* Estim Creat Clear Calc 13.9 Estimated GFR 9 POC Glucose 63 141 H Random Glucose 60 Calcium 7.7 L Crossmatch Procedures Date of Service Date of Service: 10/26/24 Assessment & Plan Assessment and plan (1) Chronic kidney disease: Status: Acute (2) Anemia of chronic disease: Status: Acute (3) Anasarca: Status: Acute (4) Hypertension: Status: Acute Plan Patient with CKD presents with elevated creatinine and edema- most likely progression of chronic renal disease (diabetic, hypertensive) given anemia of chronic disease and secondary hyperparathyroidism as well as enlarged kidneys on imaging. Patient remains hypervolemic- recommend continuing bumex 3mg PO BID. No indication for renal replacement at this time, though discussed fistula placement with patient as he will likely need HD in the future. blood pressure is suboptimal hyperkalemia resolved metabolic acidosis is stable, likely secondary to uremia in setting of advanced CKD. anemia of chronic disease- iron stores adequate, continue procrit SC injection 10,000units 3x weekly SPEP, UPEP, free light chains pending Will continue care as outpatient upon discharge. Discussed with Dr Jo. Time Spent With Patient Time: Total time managing care of this patient today ____ minutes. Progress Note: Quality Stroke Does the patient have a stroke diagnosis?: No
[2024-10-26 11:54] VITALS: BP 152/74; PULSE 71; RESP 16; TEMP 37.2; O2SAT 97
[2024-10-26 12:00] LABS: Glucose, Whole Blood 141 mg/dL (60-115)
--- NOTE | 2024-10-26 12:09 | PM.DS ---
DS: Providers Provider Date of Service: 10/26/24 Date of admission: 10/21/24 22:53 Date of discharge: 10/26/24 Primary care physician: Chris Boucher III, MD Consults: 10/21/24 23:27 Consult to Nephrology Routine Consulting Provider: [facility] Reason for consultation: anasarca, Cr 5.39 Has provider been notified: No DS: Diagnosis Discharge Diagnosis (1) Anemia of chronic disease: Status: Acute (2) CKD (chronic kidney disease) stage 4, GFR 15-29 ml/min: Status: Acute (3) Chronic kidney disease: Status: Acute (4) Anasarca: Status: Acute DS: Summary Hospital Course Hospital Course: Chief Complaint: SOB, edema Patient is a 59-year-old male with a past medical history significant for RACHEL on CPAP, HFrEF (echo 09/08 EF 45-50%), IDDM, HTN, mixed hyperlipidemia, CKD5, who presented to the ED due to bilateral upper extremity and lower extremity edema with shortness of breath, orthopnea and dyspnea on exertion for the past week. He also reports hypertension with systolic around to 0 6 at home. He denies any chest pain, fever, chills, nausea or vomiting. He also reports a weight gain of about 20 lb. He has had some recent medication changes due to his chronic kidney disease, mostly to help with electrolyte imbalances. He reports that he is not on dialysis but it has been discussed they will likely happen in the future. He is also followed by Dr. Willett for his CHF and hypertension. he reports very small less frequent urination recently. Hospital course: Patient is a 59-year-old male with a past medical history significant for RACHEL on CPAP, HFrEF (echo 09/08 EF 45-50%), IDDM, HTN, mixed hyperlipidemia, CKD4, who presented to the ED due to bilateral upper extremity and lower extremity edema with shortness of breath, orthopnea and dyspnea on exertion for the past week. He was noted to be in clinical heart failure with fluid overload and MARII on CKD. He was admitted for heart failure treatment. anasarca secondary to acute on chronic HFrEF exacerbation, echo 09/08 with EF 45-50%. She was initially started on IV Lasix push which was later changed to lasix drip at 10 mg/hr with favorable result he has since diuressd 10.7 liters, lasix drip was then changed back to IV lasix push at 80 tid and ultimately changed to oral Bumex 3mg twice. Management was guided by Nephrology. His creatine has risen sligltly from 5.39 to now 6.33 and appear stable the last 2 days. There is no indication start renal replacement therapy at this time but possibly in the near future. HypErkalemia, resolved. 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 IDDM, he has been on lantus 10 at home but has been having hypoglycemia and Lantus is now stopped HTN, high but overall better, but still high continue home meds (coreg, nifedipine, clonidine, hydralazine--increassed to 50 tid) Anemia of chronic disease of ckd, no indication for transfusion, started on epogen, h/h low but stable left arm swelling yesterday, d/t infiltrated iv, much better today, prn kpad RACHEL CPAP at bedtime HLD -continue home meds full code VTE prophy: heparin patient with acute on chronic HFrEF exacerbation with anasarca and CKD for progression, requiring admission for at least 2 midnight stay for IV diuresis, Cardiology and Nephrology consultation. Time Attestation Discharge Coordination Time (in mins): 45 Quality: Safe Use of Opioids Does Pt have an Active Cancer Diagnosis on the Problem List?: No Quality: Stroke Does the patient have a stroke diagnosis?: No Physical Exam Vital Signs: Vital Signs: Last Vital Signs Temp 98.9 F 10/26/24 11:54 Pulse 71 10/26/24 11:54 Resp 16 10/26/24 11:54 BP 152/74 H 10/26/24 11:54 Pulse Ox 97 10/26/24 11:54 O2 Del Method Room Air 10/26/24 11:54 BMI result Body Mass Index 33.1 Const: Other: General: AO X 3, no acute distress Resp: CTA bilateral, CVS: S1,S2,RRR, 2 +leg edema GI: +BS, NT, no distention Skin: No rash Neuro: motor grossly intact Psych: appropriate affect DS: Data Data Completed and Pending Completed studies during hospitalization [Text1]: Procedures Assistance with Respiratory Ventilation, Less than 24 Consecutive Hours, Continuous Positive Airway Pressure (10/02/24) Transfusion of Nonautologous Red Blood Cells into Peripheral Vein, Percutaneous Approach (10/02/24) Labs on day of discharge: Laboratory Results - last 24 hr 10/25/24 10/25/24 10/25/24 06:49 15:58 21:03 Sodium Potassium Chloride Carbon Dioxide Anion Gap BUN Creatinine Estim Creat Clear Calc Estimated GFR POC Glucose 97 93 Random Glucose Calcium Crossmatch See Detail 10/26/24 10/26/24 10/26/24 05:54 07:37 11:53 Sodium 138 Potassium 4.7 Chloride 111 H Carbon Dioxide 18 L Anion Gap 14 BUN 84 H Creatinine 6.33 H* Estim Creat Clear Calc 13.9 Estimated GFR 9 POC Glucose 63 141 H Random Glucose 60 Calcium 7.7 L Crossmatch Discharge Plan Discharge Anticipated Discharge Date/Time: 10/26/24 12:32 Patient Disposition: Home Health Service Discharge Diagnosis: Heart failure exacerbation, stage 4 CKD Referrals: Chris Boucher III, MD [Primary Care Provider] - 1 Week Discharge Medications: New hydralazine 50 mg Tablet 50 mg PO TID Qty: 270 0RF Protocol: Hold for SBP< HOLD for SBP < : 90 bumetanide 1 mg Tablet 3 mg PO BID@0800,1700 Qty: 180 0RF Protocol: Hold for SBP< HOLD for SBP < : 90 Continued (DME) blood pressure monitor [Blood Pressure Kit] Kit See Rx Instructions .ROUTE .MEDSUPPLY Qty: 1 0RF Rx Instructions: As directed carvedilol 25 mg tablet 25 mg PO BID Qty: 180 1RF Protocol: Hold for SBP/HR < HOLD for SBP < : 90 HOLD for HR < : 60 atorvastatin 80 mg tablet 80 mg PO BEDTIME clonidine HCl 0.1 mg tablet 0.1 mg PO BID trazodone 50 mg tablet 50 mg PO BEDTIME mirtazapine 15 mg tablet 15 mg PO BEDTIME zolpidem 10 mg tablet 10 mg PO BEDTIME sertraline 50 mg tablet 50 mg PO DAILY doxazosin 2 mg tablet 2 mg PO BEDTIME bupropion HCl 150 mg tablet extended release 24 hr 150 mg PO DAILY aripiprazole 2 mg tablet 2 mg PO DAILY leflunomide 10 mg tablet 10 mg PO DAILY methocarbamol 750 mg tablet 750 mg PO Q6H PRN (Reason: muscle spasm) loratadine 10 mg Tablet 10 mg PO DAILY cholecalciferol (vitamin D3) [Vitamin D3] 125 mcg (5,000 unit) Tablet 125 mcg PO DAILY sevelamer carbonate 800 mg Tablet 800 mg PO TIDWM Qty: 90 0RF Lokelma 10 gram Powder In Packet 10 g PO DAILY Qty: 30 0RF sodium bicarbonate 650 mg Tablet 1,300 mg PO BID Qty: 120 0RF calcitriol 0.25 mcg Capsule 0.25 mcg PO DAILY Qty: 90 0RF nifedipine 30 mg tablet extended release 24hr 90 mg PO DAILY Protocol: Hold for SBP< HOLD for SBP < : 90 Discontinued furosemide 20 mg tablet 20 mg PO DAILY Qty: 90 3RF insulin glargine 100 unit/mL solution 10 unit subcut BEDTIME hydralazine 25 mg Tablet 25 mg PO TID Qty: 90 0RF Protocol: Hold for SBP< HOLD for SBP < : 90 Discharge Orders: Discharge Order (Routine); Ordered 10/26/24 Ordered By: Dashawn Juárez Diet: Diabetic diet Activity on Discharge: As tolerated Stand Alone Forms: Patient Portal Discharge page Print Language: Chilean Care Plan Goals: recovery from heart failure, chronic kidney disease Health Concerns: chronic heart failure chronic kidney disease Plan of Treatment: take Bumex as directed lasix stopped and replaced with bumex hydralazone changed to 50 3 times a day Lantus stopped due to low blood sugars check your sugars on regular basis, if your sugars go above 200, notifiy your doctor at this point your diabetes is very well controlled with hemoglobin A1C of only 5.3 and so you do not need medication however watch your diet for sugar and and follow up wtih your doctor follow up with your doctor in a week follow up with your kidney doctor in a week Assessment: see above Patient Instructions: Bumetanide (By mouth) (Bumex), Hydralazine (By mouth) (Apresoline) Discharge Date/Time: 10/26/24 15:36
[2024-10-26 14:02] LABS: Estimated Average Glucose 105 mg/dL; Hemoglobin A1C 124.7295 umol/L; Hemoglobin A1c % 5.3 % (<6.0); Total Hemoglobin (HGBA1C) 3643.8181 umol/L
[2024-10-26 14:53] LABS: Transferrin 117 mg/dL (188-341)
--- NOTE | 2024-10-26 15:09 | P.F2F_ITS ---
Service Date Service Date: 10/26/24 Encounter Date of encounter: 10/26/24 Reasons for Services Signs and symptoms assessed: shortness of breath due to heart failure Reason for half-way: CV/CP assess and/or care Homebound: Leaving the home is medically contraindicated at this time without the asist of a device and/or another person due th the listed conditions above and below. Reason homebound: shortness of breath with minimal effort Homebound supporting statement: homebound due to shortness of breath, related to heart failure, shortness of breath with minimal effort and therefore needs the assistance of another person Certification: Based on the above findings, I certify that this patient is confined to the home and needs intermittent half-way care, physical therapy and/or speech therapy, or continues to need occupational therapy. The patient is under my care, and I have initiated the establishment of the plan of care. The patient will be followed by a physician who will periodically review the plan of care. Time Spent With Patient Time: Total time managing care of this patient today ____ minutes.
--- NOTE | 2024-10-26 15:32 | MHC.CM.PN ---
Addendum entered by Cecille Chowdhury 10/26/24 15:54: Correction searching for an accepting Home health agency, not a facility. Original Note: Patient is discharged to home today. VNA services have been ordered. Patient states that he did not have a VNA prior to admission. Searching for an accepting facility.
[2024-10-27 12:09] LABS: PEU-Protein Creat Ratio Rand 15.606 (0.025-0.148); PEU-Rand. Prot/Creat Ratio 15606 mg/g creat (25-148); PEU-Random Ur. Gamma Globulin 18 %; PEU-Random Urine A1 Globulin 10 %; PEU-Random Urine A2 Globulin 12 %; PEU-Random Urine Albumin 47 %; PEU-Random Urine Beta Globulin 14 %; PEU-Random Urine Creatinine 33 mg/dL (20-320); PEU-Random Urine Protein 515 mg/dL (5-25)
[2024-10-27 16:44] LABS: Kappa, Serum 159 mg/dL (176-443); Kappa/Lambda Ratio, Serum 1.26 (1.29-2.55); Lambda, Serum 126 mg/dL (91-240)
[2024-10-27 17:03] LABS: Vitamin D 25-OH, D2 <4 ng/mL; Vitamin D 25-OH, D3 9 ng/mL; Vitamin D 25-OH, Total 9 ng/mL (30-100)
[2024-10-27 18:44] LABS: PES - Abn Protein Band 1 0.2 g/dL (NONE DETECTED); Prot Elec - Albumin 2.2 g/dL (3.8-4.8); Prot Elec - Alpha1 0.3 g/dL (0.2-0.3); Prot Elec - Alpha2 0.9 g/dL (0.5-0.9); Prot Elec - Beta 1 0.3 g/dL (0.4-0.6); Prot Elec - Beta 2 0.3 g/dL (0.2-0.5); Prot Elec - Gamma 0.7 g/dL (0.8-1.7); Prot Elec - Total Protein 4.7 g/dL (6.1-8.1)
== END 2024-10-26 15:36 | disposition home health service (06) | DRG 194 ==
LOC: HO.ED 23:56 → HO.EDOVER 10-22 00:30 → HO.IMC 10-22 14:21
PROVIDERS: Nurse Practitioner Family; Physician Assistant; Admitting Provider Student in an Organized Health Care Education/Training Program; Emergency Provider Emergency Medicine; PCP Internal Medicine; Visit Provider Internal Medicine
DX: I13.0 Hypertensive heart and chronic kidney disease with heart failure and stage 1 through stage 4 chronic kidney disease, or unspecified chronic kidney disease (principal); D61.818 Other pancytopenia; E11.649 Type 2 diabetes mellitus with hypoglycemia without coma; E11.22 Type 2 diabetes mellitus with diabetic chronic kidney disease; N25.81 Secondary hyperparathyroidism of renal origin; D63.1 Anemia in chronic kidney disease; N18.4 Chronic kidney disease, stage 4 (severe); G47.33 Obstructive sleep apnea (adult) (pediatric); E78.5 Hyperlipidemia, unspecified; E87.5 Hyperkalemia; I50.23 Acute on chronic systolic (congestive) heart failure; N25.0 Renal osteodystrophy; Z91.148 Patient's other noncompliance with medication regimen for other reason; Z20.822 Contact with and (suspected) exposure to COVID-19; Z87.891 Personal history of nicotine dependence; Z79.899 Other long term (current) drug therapy
CPT/HCPCS: 0241U; 36415; 71046; 76775; 80048; 80076; 82306; 82570; 82728; 82947; 83036; 83540; 83735; 83880; 83883; 83970; 84100; 84156; 84165; 84166; 84466; 84484; 85025; 85027; 86850; 86900; 86901; 86923; 93005; 94660; 99285; J0360; J1644; J1938; P9016; P9047; Q5106

== ENCOUNTER → 2024-10-21 18:44 | Outpatient (BNV) | payer OTHER, SELFPAY | PROVIDERS: Admitting Provider Student in an Organized Health Care Education/Training Program; Emergency Provider Emergency Medicine; PCP Internal Medicine; Visit Provider Internal Medicine | DX: R94.31 Abnormal electrocardiogram [ECG] [EKG] (principal); R00.0 Tachycardia, unspecified | CPT/HCPCS: 93010 ==

== ENCOUNTER → 2024-10-21 18:59 | Outpatient (BNV) | payer OTHER, SELFPAY | PROVIDERS: PCP Internal Medicine; Visit Provider Radiology Diagnostic Radiology | DX: R06.02 Shortness of breath (principal); R60.9 Edema, unspecified | CPT/HCPCS: 71046 ==

== ENCOUNTER 2024-10-21 22:53 | Outpatient (BNV) | payer OTHER, SELFPAY | END 2024-10-22 12:17 | PROVIDERS: Admitting Provider Student in an Organized Health Care Education/Training Program; Emergency Provider Emergency Medicine; PCP Internal Medicine; Visit Provider Radiology Diagnostic Radiology | DX: N17.9 Acute kidney failure, unspecified (principal) | CPT/HCPCS: 76775 ==

== ENCOUNTER → 2024-10-21 22:53 | Outpatient (BNV) | payer OTHER, SELFPAY | PROVIDERS: Admitting Provider Student in an Organized Health Care Education/Training Program; Emergency Provider Emergency Medicine; PCP Internal Medicine; Visit Provider Internal Medicine Critical Care Medicine | DX: N18.5 Chronic kidney disease, stage 5 (principal); D63.1 Anemia in chronic kidney disease; R60.1 Generalized edema | CPT/HCPCS: 99232; 99291 ==

== ENCOUNTER → 2024-10-21 22:53 | Outpatient (BNV) | payer OTHER, SELFPAY | PROVIDERS: Admitting Provider Student in an Organized Health Care Education/Training Program; Emergency Provider Emergency Medicine; PCP Internal Medicine; Visit Provider Physician Assistant | DX: R60.1 Generalized edema (principal); I50.23 Acute on chronic systolic (congestive) heart failure; N18.4 Chronic kidney disease, stage 4 (severe) | CPT/HCPCS: 99223; 99233; 99239; G0180 ==

== ENCOUNTER → 2024-10-21 22:53 | Outpatient (BNV) | payer OTHER, SELFPAY | PROVIDERS: Admitting Provider Student in an Organized Health Care Education/Training Program; Emergency Provider Emergency Medicine; PCP Internal Medicine; Visit Provider Nurse Practitioner Family | DX: N18.5 Chronic kidney disease, stage 5 (principal); D63.8 Anemia in other chronic diseases classified elsewhere; R60.1 Generalized edema; I12.0 Hypertensive chronic kidney disease with stage 5 chronic kidney disease or end stage renal disease | CPT/HCPCS: 99222; 99232 ==

== ENCOUNTER 2024-11-04 10:35 | Outpatient (AMB) | payer OTHER, SELFPAY ==
--- NOTE | 2024-11-04 11:08 | HO.NEPHOV_ITS ---
Vital Signs 11/04/24 11:14 Height 5 ft 8 in Weight 221 lb 2 oz BMI 33.6 BP 80/44 L Blood Pressure Location Rt brachial Position Sitting Pulse 59 Pulse Source Pulse Oximeter Pulse Oximetry (%) 96 Oxygen Delivery Method Room Air Intake Visit Reasons: 1-2 wk [facility] [employer] Consult[employer] Required: No Accompanied by: Other Relationship Allergies No Known Allergies Allergy (Verified 11/04/24 11:13) HPI Comments Details: 59-year-old male with a past medical history significant for RACHEL on CPAP, HFrEF (echo 09/08 EF 45-50%), IDDM, HTN, mixed hyperlipidemia, advanced CKD, who recently presented [place] [facility] due to bilateral upper extremity and lower extremity edema with shortness of breath, orthopnea and dyspnea on exertion for the past week. He denied any chest pain, fever, chills, nausea or vomiting but had a weight gain of about 20 lb.He was noted to be in clinical heart failure with fluid overload and MARII on CKD. He was admitted for heart failure treatment. His anasarca was secondary to acute on chronic HFrEF exacerbation, echo 09/08 with EF 45-50%He was initially started on IV Lasix push which was later changed to lasix drip at 10 mg/hr with favorable result he has since diuressd 10.7 liters, lasix drip and ultimately changed to oral Bumex 3mg twice daily. He recently had seen PCP and had his medications changed including diuretics. He denied any uremic symptoms but has been having worsening edema. [facility] Medical History (Updated 11/04/24 @ 22:40 by Wily Castro MD) Hypertension Anemia of chronic disease Chronic kidney disease Congestive heart failure Chronic HFrEF (heart failure with reduced ejection fraction) Anemia RACHEL (obstructive sleep apnea) Heart failure Hypercholesterolemia Diabetes Family History (Updated 11/04/24 @ 11:10 by Lorenza Carroll MA) Mother Kidney disease Hypertension Father Hypertension Social History (Updated 11/04/24 @ 11:10 by Lorenza Carroll MA) Household Members: None Household Members Other:: grandson Housing: Apartment Do you presently have visiting nurse or other home services: No Alcohol intake: never Patient Tobacco Use Status: Former Tobacco user Tobacco use type: Cigarette Second Hand Smoke Exposure: No Advance Directives Date on File: 08/08/23 service: No Review of Systems Const All systems reviewed & are unremarkable except as noted in HPI and below Physical Exam Vital Signs: Last Vital Signs Pulse 59 11/04/24 11:14 BP 80/44 L 11/04/24 11:14 Pulse Ox 96 11/04/24 11:14 Oxygen Delivery Method Room Air 11/04/24 11:14 BMI result Body Mass Index 33.6 Const General: comfortable and no acute distress Orientation/consciousness: patient oriented x3 HEENT Head: Yes normocephalic Mouth: Normal oral and palatal mucosa present Eyes EOM: EOMs intact bilaterally Neck Neck: Yes supple Resp Auscultation: clear to auscultation bilaterally Cardio Jugular venous distension: no JVD Rate: regular rate GI Palpation (GI): Soft to palpation Auscultation: normal bowel sounds General: Yes no CVA tenderness Back/Spine/Pelvis Back: no CVA tenderness Skin General skin exam: no rashes or lesions noted Neuro General: patient oriented x3 and moves all extremities Extrem General: Yes edema Results Reviewed Nephrology Results: Hgb 9.0 g/dl (14.0-18.0) L 11/04/24 WBC 4.2 X10*3/uL (4.8-10.8) L 11/04/24 Plt Count 194 X10*3/uL (160-400) 11/04/24 Sodium 138 mmol/L (135-145) 11/04/24 Potassium 5.8 mmol/L (3.3-5.1) H 11/04/24 Chloride 113 mmol/L (96-108) H 11/04/24 Carbon Dioxide 19 mmol/L (22-29) L 11/04/24 BUN 90 mg/dL (9-16) H 11/04/24 Creatinine 6.64 mg/dL (0.5-1.4) H* 11/04/24 Calcium 7.8 mg/dL (8.4-10.2) L 11/04/24 Phosphorus 5.8 mg/dL (2.7-4.5) H 11/04/24 PTH Intact 229.4 pg/mL (8.7-77.1) H 11/04/24 Urine Protein >=1000 (4+) mg/dL (Neg-Trace) H 5 Urine Creatinine 57.47 mg/dL 10/04/24 Protein/Creatinin Ratio 53515 mg/g creat (25-148) H 5 Renal US 10/23/24 Assessment & Plan Assessment & Plan (1) Acute kidney injury superimposed on CKD: Code(s): N17.9 - Acute kidney failure, unspecified; N18.9 - Chronic kidney disease, unspecified Category: Medical (2) Hypertension: Code(s): I10 - Essential (primary) hypertension Category: Medical Qualifiers: Hypertension type: unspecified Qualified Code(s): I10 - Essential (primary) hypertension (3) Edema: Code(s): R60.9 - Edema, unspecified Category: Medical Qualifiers: Edema type: localized Qualified Code(s): R60.0 - Localized edema (4) Secondary hyperparathyroidism (of renal origin): Code(s): N25.81 - Secondary hyperparathyroidism of renal origin Category: Medical Plan 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 Started torsemide 40 mg bid Reduced hydralazine; D/Denis ACEI and Spironolactone Low Na diet; Blood work today; No indication for renal replacement today( clinically) Renal biopsy dale.Needs PD education dale K lowering medication as ordered; F/U 1 week Orders: Orders Parathyroid Hormone Intact Today N17.9 - Acute kidney failure, unspecified, N18.9 - Chronic kidney disease, unspecified IRON PROFILE Today N17.9 - Acute kidney failure, unspecified, N18.9 - Chronic kidney disease, unspecified Hepatitis B Core Antibody Today N17.9 - Acute kidney failure, unspecified, N18.9 - Chronic kidney disease, unspecified Immunofixation Pnl, Serum Today N17.9 - Acute kidney failure, unspecified, N18.9 - Chronic kidney disease, unspecified Myeloperoxidase Antibody Today N17.9 - Acute kidney failure, unspecified, N18.9 - Chronic kidney disease, unspecified Phospholipase A2 Receptor Pnl Today N17.9 - Acute kidney failure, unspecified, N18.9 - Chronic kidney disease, unspecified Prothrombin Time INR Today N17.9 - Acute kidney failure, unspecified, N18.9 - Chronic kidney disease, unspecified Creatinine Today N17.9 - Acute kidney failure, unspecified, N18.9 - Chronic kidney disease, unspecified Blood Urea Nitrogen Today N17.9 - Acute kidney failure, unspecified, N18.9 - Chronic kidney disease, unspecified Electrolytes Today N17.9 - Acute kidney failure, unspecified, N18.9 - Chronic kidney disease, unspecified Calcium Today N17.9 - Acute kidney failure, unspecified, N18.9 - Chronic kidney disease, unspecified Phosphorus Today N17.9 - Acute kidney failure, unspecified, N18.9 - Chronic kidney disease, unspecified Vitamin D 25-OH Total Today N17.9 - Acute kidney failure, unspecified, N18.9 - Chronic kidney disease, unspecified Complete Blood Count Auto Diff Today N17.9 - Acute kidney failure, unspecified, N18.9 - Chronic kidney disease, unspecified Ferritin Today N17.9 - Acute kidney failure, unspecified, N18.9 - Chronic kidney disease, unspecified Hepatitis B Surface Antigen Today N17.9 - Acute kidney failure, unspecified, N18.9 - Chronic kidney disease, unspecified Immunofixation, Random Urine Today N17.9 - Acute kidney failure, unspecified, N18.9 - Chronic kidney disease, unspecified Anti DNA DS Antibody Today N17.9 - Acute kidney failure, unspecified, N18.9 - Chronic kidney disease, unspecified Proteinase 3 PR3 Antibodies Today N17.9 - Acute kidney failure, unspecified, N18.9 - Chronic kidney disease, unspecified Anti Glomerular Basement Memb Today N17.9 - Acute kidney failure, unspecified, N18.9 - Chronic kidney disease, unspecified Complement C3 Today N17.9 - Acute kidney failure, unspecified, N18.9 - Chronic kidney disease, unspecified Complement C4 Today N17.9 - Acute kidney failure, unspecified, N18.9 - Chronic kidney disease, unspecified CT biopsy renal LT Today N17.9 - Acute kidney failure, unspecified, N18.9 - Chronic kidney disease, unspecified Medications: New torsemide 40 mg (2 x 20 mg) PO BID 30 days 120 tabs 1RF sodium polystyrene sulfonate 30 grams PO DAILY 1 month 453.6 grams 1RF Changed From hydralazine 50 mg See Protocol PO TID 270 tabs 0RF To hydralazine 20 mg See Protocol PO BID 30 days 120 tabs 0RF Coding Level of Care Code Est Pt Level 4 (38312) Diagnoses Acute kidney injury superimposed on CKD N17.9; N18.9 Hypertension, unspecified type I10 Hypertension type: unspecified Localized edema R60.0 Edema type: localized Secondary hyperparathyroidism (of renal origin) N25.81
[2024-11-04 11:14] VITALS: BP 80/44; PULSE 59; O2SAT 96; BMI 33.6
--- OUTSIDE RECORDS SUMMARY | 2024-11-04 12:02 | XMS_ITS | Clinical Summary ---
Author Organization [facility] Address [address] [address] Phone Care Team Providers Care [employer] Operator Name Role Phone Chris Boucher MD Primary Care Provider [phone] Allergies No known active allergies Medications zolpidem (AMBIEN) 10 MG tablet Take 10 mg by mouth 1 (one) time each day in the evening 06/15/2024 Active sertraline (ZOLOFT) 100 MG tablet Take 100 mg by mouth in the morning. 01/28/2024 Active rosuvastatin (CRESTOR) 40 MG tablet Take 40 mg by mouth in the morning. 05/29/2024 11/26/19 Active predniSONE (DELTASONE) 10 MG tablet Take 1 tablet by mouth in the morning. 10/11/2023 Active NIFEdipine CC (ADALAT CC) 90 MG 24 hr tablet Take 90 mg by mouth 10/01/2023 Active loratadine (CLARITIN) 10 MG tablet Take 10 mg by mouth in the morning. 08/26/2023 Active lisinopril 10 MG tablet Take 1 tablet by mouth 1 (one) time each day Active leflunomide (ARAVA) 20 MG tablet 12/02/2023 Active Insulin Pen Needle (Pen [place]) 32G X 4 [facility] Device by Does not apply route daily. 08/05/2018 Active hydrALAZINE (APRESOLINE) 10 MG tablet Take 20 mg by mouth in the morning and 20 mg at noon and 20 mg in the evening. 06/18/2024 Active ARIPiprazole (ABILIFY) 2 MG tablet Take 2 mg by mouth 1 (one) time each day 08/20/2024 Active atorvastatin (LIPITOR) 80 MG tablet Take 80 mg by mouth 1 (one) time each day in the evening Active calcitriol (ROCALTROL) 0.25 MCG capsule 10/04/2024 Active carvedilol (COREG) 25 MG tablet take 1 tablet orally 2 times a day Active cloNIDine (CATAPRES) 0.1 MG tablet Take 0.1 mg by mouth 08/20/2024 Active furosemide (LASIX) 20 MG tablet Take 20 mg by mouth 1 (one) time each day Active sevelamer carbonate (RENVELA) 800 MG tablet 10/04/2024 Active mirtazapine (REMERON) 15 MG tablet Take 15 mg by mouth 1 (one) time each day in the evening 08/20/2024 Active sodium bicarbonate 650 MG tablet 10/04/2024 Active Lokelma 10 g pack 10/04/2024 Active traZODone (DESYREL) 50 MG tablet Take 50 mg by mouth 1 (one) time each day in the evening 08/20/2024 Active sulfaSALAzine (AZULFIDINE) 500 MG tablet 12/02/2023 Active Active Problems Problem Noted Date Diagnosed Date Congestive heart failure 08/23/2023 COVID-19 09/28/2022 Vitamin deficiency 03/16/2019 Obstructive sleep apnea 06/21/2016 Essential hypertension 06/06/2015 Degeneration of cervical intervertebral disc Insomnia 02/05/2014 Alcohol dependence 08/21/2012 Type 2 diabetes mellitus 08/09/2011 Microalbuminuria 08/09/2011 Hyperlipidemia 08/09/2011 Obesity, class 1 07/18/2011 Major depressive disorder 07/18/2011 Asthma 07/18/2011 Encounters Date Type Department Care Team Description 10/21/2024 Orders Only [facility] [address] [phone] Fracisco Dillard MD 10/21/2024 Office Communication [facility] [address] [address] Fracisco Dillard MD 10/05/2024 3:30 PM EDT Office Visit [facility] [address] [address] Fracisco Dillard MD Chronic kidney disease, stage 4 (severe) (HCC) (Primary Dx); Hypertension; Diabetes mellitus, not [...] Sign Reading Time Taken Comments Blood Pressure 110/58 10/05/2024 3:43 PM EDT Pulse 68 08/03/2024 2:11 PM EST Temperature - - Respiratory Rate - - Oxygen Saturation - - Inhaled Oxygen Concentration - - Weight 98.9 kg (218 lb) 10/05/2024 3:43 PM EDT Height - - Body Mass Index - - Plan of Treatment Upcoming Encounters Date Type Department Care Team (Late st Contact Info) Description 11/11/2024 2:30 PM EDT Office Visit [facility] [address] [phone] Fracisco Dillard MD [address] [phone] Health Maintenance Due Date Last Done Comments Colorectal Cancer Screening: Annual FOBT 02/29/2012 Colorectal Cancer Screening: Colonoscopy 02/29/2012 Colorectal Cancer Screening: Sigmoidoscopy 02/29/2012 Pneumococcal Vaccine: 50+ Years (2 of 2 - PCV) 02/11/2015 02/11/2014 Diabetes: Hemoglobin A1C 04/29/2024 01/28/2024 Diabetes: Ophthalmology Exam 04/29/2024 05/03/2016, 03/01/2015, 05/21/2013, Additional history exists Diabetes: Pedal Pulse Checked 04/29/2024 Diabetes: Sensory Foot Exam 04/29/2024 Diabetes: Visual Foot Exam 04/29/2024 Influenza Vaccine (Season Ended) 2025 03/28/2022, 04/17/2021, 03/27/2017, Additional history exists Pneumococcal Vaccine: Peds (0 to 5 Years) and At-Risk Patients (6 to 49 Years) Discontinued 02/11/2014 Hepatitis B Vaccine Aged Out No longe r eligible based on patient's age to complete this topic Procedures Procedure Name Priority Date/Time Associated Diagnosis Comments CBC Routine 10/16/2024 12:03 PM EDT Chronic kidney disease, stage 4 (severe) (HCC) IRON PANEL (FE, TIBC, TSAT) Routine 10/16/2024 12:03 PM EDT Chronic kidney disease, stage 4 (severe) (HCC) FERRITIN Routine 10/16/2024 12:03 PM EDT Chronic kidney disease, stage 4 (severe) (HCC) RENAL FUNCTION PANEL Routine 10/16/2024 12:03 PM EDT Chronic kidney disease, stage 4 (severe) (HCC) RENAL FUNCTION PANEL (EXTERNAL LAB ENTRY) Routine 10/04/2024 from Last 3 Months Results * (ABNORMAL) Iron Panel (Fe, TIBC, TSAT) (10/16/2024 12:03 PM EDT) TIBC 161(L) 250 - 450 ug/dL [facility] UIBC 128 111 - 343 ug/dL [facility] Iron 33(L) 38 - 169 ug/dL [facility] Iron Saturation (TSat) 20 15 - 55 % [facility] Blood specimen (specimen) Venous blood / Unknown 10/16/2024 12:03 PM EDT 10/16/2024 us Fracisco Dillard MD LAB BLOOD ORDERABLES Final Resul t [facility] [address] [place] [address] * (ABNORMAL) CBC without diff (10/16/2024 12:03 PM EDT) WBC 6.3 3.4 - 10.8 x10E3/uL [facility] RBC 2.82(L) 4.14 - 5.80 x10E6/uL [facility] Hemoglobin 8.4(L) 13.0 - 17.7 g/dL [facility] Hematocrit 25.3(L) 37.5 - 51.0 % [facility] MCV 90 79 - 97 fL [facility] MCH 29.8 26.6 - 33.0 pg [facility] MCHC 33.2 31.5 - 35.7 g/dL [facility] RDW 15.9(H) 11.6 - 15.4 % [facility] Platelets 168 150 - 450 x10E3/uL [facility] Blood specimen (specimen) Venous blood / Unknown 10/16/2024 12:03 PM EDT 10/16/2024 us Fracisco Dillard MD LAB BLOOD ORDERABLES Final Resul t [facility] [address] [place] [address] * (ABNORMAL) Ferritin (10/16/2024 12:03 PM EDT) Ferritin 438(H) 30 - 400 ng/mL [facility] Blood specimen (specimen) Venous blood / Unknown 10/16/2024 12:03 PM EDT 10/16/2024 us Fracisco Dillard MD LAB BLOOD ORDERABLES Final Resul t [facility] [address] [place] [address] * (ABNORMAL) Renal funtion panel (10/16/2024 12:03 PM EDT) Glucose 100(H) 70 - 99 mg/dL [facility] BUN 90(HH) 8 - 27 mg/dL [facility] Creatinine 5.81(H) 0.76 - 1.27 mg/dL [facility] eGFR CKD-EPI CR 2020 10(L) >59 mL/min/1.7 3 [facility] BUN/Creatinine Ratio 15 10 - 24 [facility] Sodium 140 134 - 144 mmol/L [facility] Potassium 6.0(H) 3.5 - 5.2 mmol/L [facility] Chloride 111(H) 96 - 106 mmol/L [facility] Bicarbonate (CO2) 15(L) 20 - 29 mmol/L [facility] Calcium 7.9(L) 8.6 - 10.2 mg/dL [facility] Albumin 2.8(L) 3.9 - 4.9 g/dL [facility] Phosphorus 6.1(H) 2.8 - 4.1 mg/dL [facility] Blood specimen (specimen) Venous blood / Unknown 10/16/2024 12:03 PM EDT 10/16/2024 us Fracisco Dillard MD LAB BLOOD ORDERABLES Final Resul t [facility] [address] [place] [address] * Renal Function Panel (External Lab) (10/04/2024) Glucose 210 mg/dL BUN 61 mg/dL eGFR 12 Sodium 139 mEq/L Potassium 4.3 mEq/L Chloride 116 Carbon Dioxide 15 mmol/L Calcium 7.7 mg/dL Phosphorus, Serum 5.4 mg/dL Albumin (Blood) 2.5 g/dL Creatinine 5.12 mg/dL Anion Gap 12 Blood specimen (specimen) 10/04/2024 us Historical Provider LAB BLOOD ORDERABLES Kayla reid Result from Last 3 [place] [address] Care Teams [employer] Operator Relationship Specialty Start Date End Date Chris Boucher MD [address] [place] [phone] PCP - General Internal Medicine 08/03/24
--- OUTSIDE RECORDS SUMMARY | 2024-11-04 12:02 | XMS_ITS | Data Portability ---
Author Organization [facility] [address] Address [address] [place] [address] Assessment No assessment recorded. Plan of Treatment [...] Send Out Template DOT completed DO [email or web address] 06/08/2022 11:09:39 Imaging Results None recorded. Procedure [...] SNOMED-CT Code Diagnosis ICD10 Code Diagnosis Note [id number] [address] [place] [address] 11/28/2021 16:43:51 11/28/2021 18:50:06 [id number] [address] [place] [address] 04/02/2018 15:05:18 04/02/2018 15:37:34 [id number] SAMUEL MARQUEZ MD [address] [place] [address] 06/08/2022 08:32:26 06/08/2022 14:21:11 History and physical examination, pre-employment [id number] Z02.1 Documentat ion for this visit can be found on the electronic DOT form or scanned copy Health Concerns Section Related Observation LastModified by Organization Detai ls LastModified Time None Recorded Concern Status LastModified by Organization Details LastModified Time None Recorded Advance Directives Directive None Recorded Payers Insurance Date Sequence Insurance Name Policy Number Policy Quinteros Covered Member ID Quinteros Member ID Guarantor Name 06/08/2022 OC-ESCREEN Dillon Lucio [id number] Dillon Lucio
--- OUTSIDE RECORDS SUMMARY | 2024-11-04 12:02 | XMS_ITS | Encounter Summary ---
Author Organization [facility] Address [address] [place] [address] Care Team Providers Care Conference Manager Name Role Phone Chris Boucher MD Primary Care Provider [phone] Reason for Visit * Reason Onset Date Comments faxed order 10/29/2024 [facility] order# [id number] Encounter Details Date Type Department Care Team (Late st Contact Info) Description 10/29/2024 Telephone Adult Medicine [address] [phone] Chris Boucher MD [address] [place] [phone] faxed order ( [facility] order# [id number]) Social History Tobacco Use Types Packs/Day Years Used Date Smoking Tobacco: Former Cigarettes 0.5 18.1 0 06/17/1992 - 08/01/2010 Smokeless Tobacco: Former Alcohol Use Standard Drinks/Week Comments Yes 0 (1 standard drink = 0.6 oz pur e alcohol) Sex and Gender Information Value Date Recorded Sex Assigned at Not on file Legal Sex Male 4:53 AM EST Gender Identity Not on file Sexual Orientation Not on file documented as of this encounter Progress Notes * Hortencia Carlson - 10/29/2024 3:23 PM EDT [facility] [employer] order# [id number] received please sign and fax to [phone] documented in this encounter Plan of Treatment Upcoming Encounters Date Type Department Care Team (Late st Contact Info) Description 03/01/2025 11:00 AM EDT Office Visit Adult Medicine [address] [phone] Chris Boucher MD [address] [place] [phone] documented as of this encounter Visit Diagnoses Not on filedocumented in this encounter Care Teams Conference Manager Relationship Specialty Start Date End Date Chris Boucher MD [address] [place] [address] [phone] PCP - General Internal Medicine 09/06/14 documented as of this encounter
--- OUTSIDE RECORDS SUMMARY | 2024-11-04 12:02 | XMS_ITS | Clinical Summary ---
Author Organization [address] Address [address] [place] [phone] Phone Care Team Providers Care Door Manager Name Role Phone Chris Boucher MD Primary Care Provider [phone] Allergies No known active allergies Medications loratadine [...] 1 Tablet by mouth at bedtime. 01/06/20 24 Active furosemide (LASIX) 20 mg tablet Take 1 tablet (20 mg total) by mouth 1 (one) time each day. 08/07/19 24 Active carvediloL (COREG) 25 mg tablet Take 1 tablet (25 mg total) by mouth 2 (two) times a day. 08/07/19 24 Active lisinopril (PRINIVIL,ZEST RIL) 40 mg tablet Take 1 Tablet by mouth daily for 180 days. 02/20/20 23 Active ipratropium-al buteroL (DUONEB) 0.5-2.5 mg/3 mL nebulizer solution Inhale 3 mL into the lungs 4 times daily. 08/07/19 23 Active glucose blood test strip Use to test blood sugar twice daily 04/17/20 Active FREESTYLE LANCETS MISC Use to test bloodsugar twice daily 07/04/19 Active blood-glucose meter kit 1 Each by Does not apply route as needed for Other for up to 360 days. 07/04/19 Active pen needle, diabetic 32 gauge x 5/32 needle 1 Device by Does not apply route daily. 08/05/19 19 Active rosuvastatin (CRESTOR) 40 mg tablet Take 1 tablet (40 mg total) by mouth 1 (one) time each day. 30 each 5 05/29/20 24 025 Active Farxiga 5 mg tablet TAKE 1 TABLET BY MOUTH EVERY DAY 90 tablet 2 07/28/19 25 Active NIFEdipine CC (ADALAT CC) 90 mg 24 hr tablet Take 1 tablet (90 mg total) by mouth 1 (one) time each day before breakfast. Do not crush, chew, or split. Active hydrALAZINE (APRESOLINE) 10 mg tablet Take 1 tablet (10 mg total) by mouth 2 (two) times a day. Active bumetanide (BUMEX) 1 mg tablet Take 3 tablets (3 mg total) by mouth 2 (two) times a day. Active hydrALAZINE (APRESOLINE) 50 mg tablet Take 1 tablet (50 mg total) by mouth 3 (three) times a day. Active spironolactone (ALDACTONE) 25 mg tablet Take 1 tablet (25 mg total) by mouth 1 (one) time each day. 08/07/19 24 025 Discontinued diclofenac (VOLTAREN) 1 % topical gel Apply 1 g topically 3 times daily as needed (pain). 05/03/20 025 Discontinued doxazosin (CARDURA) 2 mg tablet Take 1 tablet (2 mg total) by mouth at bedtime. 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 c kidney disease ([facility] V24, [facility] V28) 10/13/2024 CHF (congestive heart failure) ([facility] V24, [facility] V28) 08/23/2023 COVID-19 09/28/2022 Low testosterone 03/16/2019 Vitamin deficiency 03/16/2019 Obstructive sleep apnea 06/21/2016 Essential hypertension 06/06/2015 DDD (degenerative disc disease), cervical 2014 Insomnia 02/05/2014 Alcohol dependence ([facility] V24, [facility] V28) Hyperlipidemia 08/09/2011 Microalbuminuria 08/09/2011 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 ([facility] V24, [facility] V28) 08/09/2011 Asthma 07/18/2011 Major depression 07/18/2011 Obesity (BMI 30.0-34.9) 07/18/2011 Encounters Date Type Department Care Team Description 10/29/2024 Telephone Adult Medicine [address] [phone] Chris Boucher MD faxed order ( [facility] order# [id number]) 10/27/2024 10:30 AM EDT Office Visit Adult Medicine [address] [phone] Chris Boucher MD CKD (chronic kidney disease) stage 4, GFR 15-29 ml/min ([facility] V24, [facility] V28) (Primary Dx); Anasarca; Essential hypertension; Type II diabetes mellitus with nephropathy ([facility] V24, [facility] V28) 10/13/2024 1:10 PM EDT - 10/13/2024 11:59 PM EDT Hospital Encounter Radiology Department - [address] [phone] Swelling of right hand Discharge Disposition: Home or Self Care 10/13/2024 9:30 AM EDT Office Visit Adult [address] [phone] Estela Hooker PA Hospital discharge follow-up (Primary Dx); Swelling of right hand; CKD (chronic kidney disease) stage 4, GFR 15-29 ml/min ([facility] V24, [facility] V28); Anemia due to stage 4 chronic kidney disease ([facility] V24, [facility] V28); Chronic congestive heart failure, unspecified heart failure type ([facility] V24, [facility] V28) 10/07/2024 Nurse Triage Adult [address] [phone] Chris Boucher MD Leg Swelling; Foot Swelling 10/05/2024 Telephone Adult [address] [phone] Chris Boucher MD Hospital Follow-up 10/02/2024 Telephone Adult [address] [phone] Chris Boucher MD faxed order ([facility] cert and orders [id number], [id number]/) 09/23/2024 Nurse Triage Adult [address] [phone] Chris Boucher MD call from patient ; Weight Loss; Weakness - Generalized; Poor Appetite from Last 3 Months Immunizations Name Administration [...] ial hypertension CHF (congestive heart failur e) ([facility] V24, [facility] V28) 08/23/2023 DX:CHF (congestive heart fa ilure) ([facility]) Family History Medical History Relation Name Comments [...] Sign Reading Time Taken Comments Blood Pressure 106/54 10/27/2024 10:38 AM EDT Pulse 68 10/27/2024 10:38 AM EDT Temperature 36.5 ??C (97.7 ??F) 10/27/2024 10:38 AM E DT Respiratory Rate 15 10/27/2024 10:38 AM EDT Oxygen Saturation 97% 10/27/2024 10:38 AM EDT Inhaled Oxygen Concentration - - Weight 97.1 kg (214 lb) 10/27/2024 10:38 AM EDT Height 172.7 cm (5' 7.99 ) 10/27/2024 10:38 AM E DT Body Mass Index 32.55 10/27/2024 10:38 AM EDT Plan of Treatment Upcoming Encounters Date Type Department Care Team (Late st Contact Info) Description 03/01/2025 11:00 AM EDT Office Visit Adult Medicine [facility] [address] [place] [phone] Chris Boucher MD [address] [place] [phone] Health Maintenance Due Date Last Done Comments Diabetes: Annual Foot Exam 1973 Hepatitis A Vaccines (1 of 2 - Risk 2-dose series) 1982 Zoster Vaccines (1 of 2) 2013 Pneumococcal Vaccine: 50+ Years (2 of 2 - PCV) 02/11/2015 02/11/2014 Pneumococcal Vaccine: Pediatrics (0 to 5 Years) and At-Risk Patients (6 to 64 Years) (2 of 2 - PCV) 02/11/2015 02/11/2014 Colorectal Cancer Screening: Colonoscopy 05/26/2022 HIV Screening 05/26/2022 Social Influencers of Health Screening 05/26/2022 RSV Immunization Adult Patients (1 - Risk 60-74 years 1-dose series) 2023 COVID-19 Vaccine ( season) 2024 05/28/2022, 08/18/2021, 12/31/2020, Additional history exists Diabetes: Blood Sugar Control Test (HGBA1C) 07/30/2024 01/28/2024, 01/28/2024 Diabetes: Annual Retina Eye Exam 12/09/2024 12/10/2023 Depression Screening 01/27/2025 01/28/2024 Diabetes: Annual Urine Albumin-Creatinine Ratio (uACR) 01/27/2025 01/28/2024 Influenza Vaccine (Season Ended) 2025 08/04/2022, 03/28/2022, 04/17/2021, Additional history exists Diabetes: Annual GFR (Glomerular Filtration Rate) 10/27/2025 10/27/2024, 10/13/2024, 04/28/2024, Additional history exists Hypertension/CHF/CAD Annual BMP Blood Test 10/27/2025 10/27/2024, 10/13/2024, 04/28/2024, Additional history exists Cholesterol Screening (Lipid Panel) 10/13/2029 10/13/2024, 01/28/2024, 01/28/2024 DTaP,Tdap,and Td Vaccines (3 - [...] age to complete this topic Meningococcal B Vaccine Aged Out No l onger eligible based on patient's age to complete this topic RSV Immunization Patients Under 20 months Aged Out No longer eligible based on patient's age to complete this topic Varicella Vaccines Aged Out No longer eligible based on patient's age to complete this topic Procedures Procedure Name Priority Date/Time Associated Diagnosis Comments BASIC METABOLIC PANEL Routine 10/27/2024 11:11 AM EDT CKD (chronic kidney disease) stage 4, GFR 15-29 ml/min (CMS/HCC V24, CMS/HCC V28) VAS US DUPLEX UPPER EXT VENOUS RIGHT STAT 10/13/2024 1:48 PM EDT Swelling of right hand CT HEAD WO AND W CONTRAST Routine 10/13/2024 12:23 PM EDT ECG 12-LEAD Routine 10/13/2024 12:21 PM EDT CBC WITH AUTO DIFFERENTIAL Routine 10/13/2024 9:58 AM EDT Hospital discharge follow-up LIPID PANEL WITH REFLEX TO DIRECT LDL Routine 10/13/2024 9:58 AM EDT Type II diabetes mellitus with nephropathy ([facility] V24, [facility] V28) COMPREHENSIVE METABOLIC PANEL Routine 10/13/2024 9:58 AM EDT Encounter for long-term (current) use of medications CBC AND DIFFERENTIAL Routine 10/13/2024 9:58 AM EDT Hospital discharge follow-up DEPRESSION SCREENING Routine 01/28/2024 URINE ALBUMIN CREATININE RATIO Routine 01/28/2024 HEMOGLOBIN A1C Routine 01/28/2024 DIABETES EYE EXAM Routine 12/10/2023 HEPATITIS C SCREENING Routine 02/19/2023 from Last 3 Months or Most Recently Relevant to Health Maintenance Results * (ABNORMAL) Basic metabolic panel (10/27/2024 11:11 AM EDT) Sodium 139 133 - 145 mmol/L LAB CHEMISTRY METHOD 10/27/2024 4:07 PM [facility] Potassium 4.6 3.5 - 5.5 mmol/L LAB CHEMISTRY METHOD 10/27/2024 4:07 PM [facility] Chloride 109 96 - 110 mmol/L LAB CHEMISTRY METHOD 10/27/2024 4:07 PM [facility] CO2 20(L) 21 - 32 mmol/L LAB CHEMISTRY METHOD 10/27/2024 4:07 PM [facility] Anion Gap 10 3 - 11 LAB CHEMISTRY METHOD 10/27/2024 4:07 PM [facility] Glucose 120(H) 70 - 100 mg/dL LAB CHEMISTRY METHOD 10/27/2024 4:07 PM EDT [facility] BUN 82(H) 5 - 25 mg/dL LAB CHEMISTRY METHOD 10/27/2024 4:07 PM EDT [facility] Creatinine 6.86(H) 0.70 - 1.30 mg/dL LAB CHEMISTRY METHOD 10/27/2024 4:07 PM EDT [facility] eGFR 8(L) >=60 mL/min/1. 73m2 LAB CHEMISTRY METHOD 10/27/2024 4:07 PM EDT [facility] Comment:Calculation based on the Chronic Kidney Disease Epidemiology Collaboration (CKD-EPI) equation refit without adjustment for race. BUN/Creatinine Ratio 12.0 LAB CHEMISTRY METHOD 10/27/2024 4:07 PM EDT [facility] Calcium 7.9(L) 8.5 - 10.5 mg/dL LAB CHEMISTRY METHOD 10/27/2024 4:07 PM EDT [facility] Blood Venous blood specimen / Unknown Venipuncture / Unknown 10/27/2024 11:11 AM EDT 10/27/2024 11:11 AM EDT us Chris Boucher MD LAB BLOOD ORDERABLES Final Resu lt [facility] [address] [place] [address], * Vascular US duplex upper extremity venous right (10/13/2024 1:48 PM EDT) Anatomical Region Laterality Modality Vascular, Abdomen Ultrasound 10/13/2024 3:46 PM EDT Narrative 10/13/2024 3:48 PM EDT Ultrasound of the deep venous system of the right upper extremity. History right arm edema. Landeros scale images, color Doppler ultrasound and duplex analysis of the deep venous system of the right upper extremity was performed. No evidence of DVT was appreciated in the internal jugular vein, subclavian vein, axillary vein, cephalic vein, basilic vein or brachial vein. There was normal compressibility, color flow and thumb Doppler signal. CONCLUSIONS: No evidence of DVT. -------- FINAL REPORT -------- Dictated By: Imani Trinh Dictated Date: 10/13/2024 15:46 ET Assigned Physician: Imani Trinh Reviewed and Electronically Signed By: Imani Trinh Signed Date: 10/13/2024 15:48 ET Workstation ID: [id number] Transcribed By: Self Edit Transcribed Date: 10/13/2024 15:46 ET Procedure Note Imani Trinh MD - 10/13/2024 Ultrasound of the deep venous system of the right upper extremity. History right arm edema. Landeros scale images, color Doppler ultrasound and duplex analysis of thedeep venous system of the right upper extremity was performed. No evidenceof DVT was appreciated in the internal jugular vein, subclavian vein,axillary vein, cephalic vein, basilic vein or brachial vein. There wasnormal compressibility, color flow and thumb Doppler signal. CONCLUSIONS: No evidence of DVT. -------- FINAL REPORT -------- Dictated By: Imani Trinh Dictated Date: 10/13/2024 15:46 ET Assigned Physician: Imani Trinh Reviewed and Electronically Signed By: Imani Trinh Signed Date: 10/13/2024 15:48 ET Workstation ID: [id number] Transcribed By: Self Edit Transcribed Date: 10/13/2024 15:46 ET Estela IBANEZ CV VASCULAR PROCEDURES Final Result * CT Head wo and w Contrast (10/13/2024 12:23 PM EDT) Anatomical Region Laterality Modality Head and Neck Computed Tomogra phy Historical Provider IMG CT PROCEDURES Final R esult * ECG 12 lead (10/13/2024 12:21 PM EDT) Historical Provider ECG ORDERABLES Final Res ult * Lipid panel with reflex to direct LDL (10/13/2024 9:58 AM EDT) Pathologist [facility] Cholesterol 159 0 - 200 mg/dL LAB CHEMISTRY METHOD 10/13/2024 1:13 PM EDT [facility] Triglycerides 83 0 - 150 mg/dL LAB CHEMISTRY METHOD 10/13/2024 1:13 PM EDT [facility] HDL 68 >=40 mg/dL LAB CHEMISTRY METHOD 10/13/2024 1:13 PM EDT [facility] LDL Calculated 74 0 - 100 mg/dL LAB CHEMISTRY METHOD 10/13/2024 1:13 PM EDT [facility] VLDL Cholesterol Kirk 16.6 mg/dL LAB CHEMISTRY METHOD 10/13/2024 1:13 PM EDT [facility] Non HDL Chol. (LDL+VLDL) 91 <145 mg/dL LAB CHEMISTRY METHOD 10/13/2024 1:13 PM EDT [facility] Chol/HDL Ratio 2.3 0.0 - 4.4 LAB CHEMISTRY METHOD 10/13/2024 1:13 PM EDT [facility] Blood Venous blood specimen / Unknown Venipuncture / Unknown 10/13/2024 9:58 AM EDT 10/13/2024 9:58 AM EDT us Chris Boucher MD LAB BLOOD ORDERABLES Final Resu lt [facility] [address] [place] [address], * (ABNORMAL) CBC auto differential (10/13/2024 9:58 AM EDT) Pathologist [facility] WBC 7.6 4.8 - 10.8 K/mcL LAB HEMETOLOGY METHOD 10/13/2024 12:28 PM EDT [facility] RBC 3.10(L) 4.50 - 5.50 M/mcL LAB HEMETOLOGY METHOD 10/13/2024 12:28 PM [facility] Hemoglobin 9.0(L) 13.5 - 17.5 g/dL LAB HEMETOLOGY METHOD 10/13/2024 12:28 PM [facility] Hematocrit 28.2(L) 42.0 - 54.0 % LAB HEMETOLOGY METHOD 10/13/2024 12:28 PM [facility] MCV 91.9 79.0 - 98.0 FL LAB HEMETOLOGY METHOD 10/13/2024 12:28 PM [facility] MCH 29.3 27.0 - 32.0 pcg LAB HEMETOLOGY METHOD 10/13/2024 12:28 PM [facility] MCHC 31.9(L) 32.0 - 37.0 g/dL LAB HEMETOLOGY METHOD 10/13/2024 12:28 PM [facility] RDW 16.4(H) 11.0 - 15.0 % LAB HEMETOLOGY METHOD 10/13/2024 12:28 PM [facility] Platelets 199 130 - 400 K/mcL LAB HEMETOLOGY METHOD 10/13/2024 12:28 PM [facility] MPV 11.0 7.0 - 11.0 FL LAB HEMETOLOGY METHOD 10/13/2024 12:28 PM [facility] NRBC 0.0 <1.0 % LAB HEMETOLOGY METHOD 10/13/2024 12:28 PM [facility] NRBC Absolute 0.00 <0.10 K/mcL LAB HEMETOLOGY METHOD 10/13/2024 12:28 PM [facility] Neutrophils Relative 64.3 % LAB HEMETOLOGY METHOD 10/13/2024 12:28 PM [facility] Lymphocytes Relative 22.9 % LAB HEMETOLOGY METHOD 10/13/2024 12:28 [facility] Monocytes Relative 8.1 % LAB HEMETOLOGY METHOD 10/13/2024 12:28 PM [facility] Eosinophils Relative 3.9 % LAB HEMETOLOGY METHOD 10/13/2024 12:28 PM [facility] Basophils Relative 0.4 % LAB HEMETOLOGY METHOD 10/13/2024 12:28 PM [facility] Immature Granulocytes Relative 0.4 % LAB HEMETOLOGY METHOD 10/13/2024 12:28 PM [facility] Neutrophils Absolute 4.89 1.50 - 7.00 K/mcL LAB HEMETOLOGY METHOD 10/13/2024 12:28 PM [facility] Lymphocytes Absolute 1.74 1.00 - 5.00 K/mcL LAB HEMETOLOGY METHOD 10/13/2024 12:28 PM [facility] Monocytes Absolute 0.62 0.20 - 1.00 K/mcL LAB HEMETOLOGY METHOD 10/13/2024 12:28 PM [facility] Eosinophils Absolute 0.30 0.00 - 0.50 K/mcL LAB HEMETOLOGY METHOD 10/13/2024 12:28 PM [facility] Basophils Absolute 0.03 0.00 - 0.20 K/mcL LAB HEMETOLOGY METHOD 10/13/2024 12:28 PM [facility] Immature Granulocytes Absolute 0.03 0.00 - 0.03 K/mcL LAB HEMETOLOGY METHOD 10/13/2024 12:28 PM [facility] Blood Venous blood specimen / Unknown Venipuncture / Unknown 10/13/2024 9:58 AM EDT 10/13/2024 9:58 AM EDT Estela IBANEZ LAB BLOOD ORDERABLES Final Re sult [facility] [address] [place] [address], * (ABNORMAL) Comprehensive metabolic panel (10/13/2024 9:58 AM EDT) Sodium 139 133 - 145 mmol/L LAB CHEMISTRY METHOD 10/13/2024 1:13 PM EDT [facility] Potassium 6.0(H) 3.5 - 5.5 mmol/L LAB CHEMISTRY METHOD 10/13/2024 1:13 PM [facility] Chloride 113(H) 96 - 110 mmol/L LAB CHEMISTRY METHOD 10/13/2024 1:13 PM [facility] CO2 17(L) 21 - 32 mmol/L LAB CHEMISTRY METHOD 10/13/2024 1:13 [facility] Anion Gap 9 3 - 11 LAB CHEMISTRY METHOD 10/13/2024 1:13 PM [facility] Glucose 69(L) 70 - 100 mg/dL LAB CHEMISTRY METHOD 10/13/2024 1:13 PM [facility] BUN 118(H) 5 - 25 mg/dL LAB CHEMISTRY METHOD 10/13/2024 1:13 PM [facility] Creatinine 6.53(H) 0.70 - 1.30 mg/dL LAB CHEMISTRY METHOD 10/13/2024 1:13 PM [facility] eGFR 9(L) >=60 mL/min/1. 73m2 LAB CHEMISTRY METHOD 10/13/2024 1:13 PM [facility] Comment:Calculation based on the??Chronic Kidney Disease Epidemiology Collaboration (CKD-EPI) equation refit??without adjustment for race. BUN/Creatinine Ratio 18.1 LAB CHEMISTRY METHOD 10/13/2024 1:13 PM [facility] Calcium 8.1(L) 8.5 - 10.5 mg/dL LAB CHEMISTRY METHOD 10/13/2024 1:13 PM EDT [facility] AST (SGOT) 12 10 - 42 unit/L LAB CHEMISTRY METHOD 10/13/2024 1:13 PM EDT [facility] ALT (SGPT) 27 10 - 60 unit/L LAB CHEMISTRY METHOD 10/13/2024 1:13 PM EDT [facility] Alkaline Phosphatase 85 42 - 121 unit/L LAB CHEMISTRY METHOD 10/13/2024 1:13 PM EDT [facility] Total Protein 5.5(L) 6.0 - 8.0 g/dL LAB CHEMISTRY METHOD 10/13/2024 1:13 PM T [facility] Albumin 2.2(L) 3.2 - 5.0 g/dL LAB CHEMISTRY METHOD 10/13/2024 1:13 PM [facility] Total Bilirubin 0.2 0.0 - 1.4 mg/dL LAB CHEMISTRY METHOD 10/13/2024 1:13 PM T [facility] Blood Venous blood specimen / Unknown Venipuncture / Unknown 10/13/2024 9:58 AM EDT 10/13/2024 9:58 AM EDT Chris Boucher MD LAB BLOOD ORDERABLES Final Resu lt [facility] [address] [place] [address], * Urine Albumin Creatinine Ratio (01/28/2024) Urine Albumin Creatinine Ratio abstracted Historical Provider HEALTH MAINTENANCE Final Result * Depression Screening (01/28/2024) Depression Screening abstracted Historical Provider HEALTH MAINTENANCE Final Result * (ABNORMAL) Hemoglobin A1c (01/28/2024) Hemoglobin A1C 7.6(A) <=6.5 % Blood Venous blood specimen / Unknown Historical Provider LAB BLOOD ORDERABLES Kayla l Result * Diabetes Eye Exam (12/10/2023) Pathologist [facility] Diabetes: Annual Retina Eye Exam abstracted Historical Provider HEALTH MAINTENANCE Final Result * Hepatitis C Screening (02/19/2023) Pathologist [facility] Hepatitis C Screening abstracted Historical Provider HEALTH MAINTENANCE Final Result from Last 3 Months or Most Recently Relevant to Health Maintenance Insurance [facility] [place] [address] Care Teams Door Manager Relationship Specialty Start Date End Date Chris Boucher MD [address] [place] [phone] PCP - General Internal Medicine 09/06/14
== END 2024-11-04 12:25 | disposition home or self-care (01) ==
LOC: HO.HKA 10:35
PROVIDERS: PCP Internal Medicine; Visit Provider Internal Medicine Nephrology
DX: N17.9 Acute kidney failure, unspecified (principal); I12.9 Hypertensive chronic kidney disease with stage 1 through stage 4 chronic kidney disease, or unspecified chronic kidney disease; N18.9 Chronic kidney disease, unspecified; R60.0 Localized edema; N25.81 Secondary hyperparathyroidism of renal origin
CPT/HCPCS: 99214

== ENCOUNTER → 2024-11-04 10:35 | Outpatient (BNVA) | payer OTHER, SELFPAY | PROVIDERS: PCP Internal Medicine; Visit Provider Internal Medicine Nephrology ==

== ENCOUNTER 2024-11-04 11:59 | Outpatient (REF) | payer OTHER, SELFPAY ==
--- OUTSIDE RECORDS SUMMARY | 2024-11-04 13:02 | XMS_ITS | Clinical Summary ---
Author Organization [facility] Address [address] [phone] Phone Care Team Providers Care Furniture Decals Inspector Name Role Phone Chris Boucher MD Primary Care Provider [phone] Allergies No known active allergies Medications zolpidem [...] tablet 12/02/2023 Active Insulin Pen Needle (Pen [place]) 32G X 4 MM [facility] Device by Does not apply route [...] Orders Only [facility] [address] [phone] Fracisco Dillard MD 10/21/2024 Office Communication [facility] [address] [phone] Fracisco Dillard MD 10/05/2024 3:30 PM EDT Office Visit [facility] [address] [phone] Fracisco Dillard MD Chronic kidney disease, stage [...] Office Visit [facility] P.. [address] [phone] Fracisco Dillard MD [address] [phone] Health Maintenance Due Date Last Done Comments [...] TIBC 161(L) 250 - 450 ug/dL [facility] UIBC 128 111 - 343 ug/dL [facility] Iron 33(L) 38 - 169 ug/dL [facility] Iron Saturation (TSat) 20 15 - 55 % [facility] Blood specimen (specimen) Venous blood / Unknown 10/16/2024 12:03 PM EDT 10/16/2024 us Fracisco Dillard MD LAB BLOOD ORDERABLES Final Resul t [facility] [address] [place] [address] * (ABNORMAL) CBC without diff (10/16/2024 12:03 PM EDT) WBC 6.3 3.4 - 10.8 x10E3/uL [facility] RBC 2.82(L) 4.14 - 5.80 x10E6/uL [facility] Hemoglobin 8.4(L) 13.0 - 17.7 g/dL [facility] Hematocrit 25.3(L) 37.5 - 51.0 % [facility] MCV 90 79 - 97 fL [facility] MCH 29.8 26.6 - 33.0 pg [facility] MCHC 33.2 31.5 - 35.7 g/dL [facility] RDW 15.9(H) 11.6 - 15.4 % [facility] Platelets 168 150 - 450 x10E3/uL [facility] Blood specimen (specimen) Venous blood / Unknown 10/16/2024 12:03 PM EDT 10/16/2024 us Fracisco Dillard MD LAB BLOOD ORDERABLES Final Resul t [facility] [address] [place] [address] * (ABNORMAL) Ferritin (10/16/2024 12:03 PM EDT) Ferritin 438(H) 30 - 400 ng/mL [facility] Blood specimen (specimen) Venous blood / Unknown 10/16/2024 12:03 PM EDT 10/16/2024 us Fracisco Dillard MD LAB BLOOD ORDERABLES Final Resul t [facility] [address] [place] [address] * (ABNORMAL) Renal funtion panel (10/16/2024 12:03 PM EDT) Glucose 100(H) 70 - 99 mg/dL [facility] BUN 90(HH) 8 - 27 mg/dL [facility] Creatinine 5.81(H) 0.76 - 1.27 mg/dL [facility] eGFR CKD-EPI CR 2020 10(L) >59 mL/min/1.7 3 [facility] BUN/Creatinine Ratio 15 10 - 24 [facility] Sodium 140 134 - 144 mmol/L [facility] Potassium 6.0(H) 3.5 - 5.2 mmol/L [facility] Chloride 111(H) 96 - 106 mmol/L [facility] Bicarbonate (CO2) 15(L) 20 - 29 mmol/L [facility] Calcium 7.9(L) 8.6 - 10.2 mg/dL [facility] Albumin 2.8(L) 3.9 - 4.9 g/dL [facility] Phosphorus 6.1(H) 2.8 - 4.1 mg/dL [facility] Blood specimen (specimen) Venous blood / Unknown 10/16/2024 12:03 PM EDT 10/16/2024 us Fracisco Dillard MD LAB BLOOD ORDERABLES Final Resul t [facility] [address] [place] [phone] * Renal Function Panel (External Lab) (10/04/2024) Glucose 210 mg/dL BUN 61 mg/dL eGFR 12 Sodium 139 mEq/L Potassium 4.3 mEq/L Chloride 116 Carbon Dioxide 15 mmol/L Calcium 7.7 mg/dL Phosphorus, Serum 5.4 mg/dL Albumin (Blood) 2.5 g/dL Creatinine 5.12 mg/dL Anion Gap 12 Blood specimen (specimen) 10/04/2024 us Historical Provider LAB BLOOD ORDERABLES Kayla reid Result from Last 3 Months Insurance Medicaid Care Teams Furniture Decals Inspector Relationship Specialty Start Date End Date Chris Boucher MD [address] [place] [phone] PCP - General Internal Medicine 08/03/24
--- OUTSIDE RECORDS SUMMARY | 2024-11-04 13:03 | XMS_ITS | Clinical Summary ---
Author Organization [address] Address [address] [place] [phone] Phone Care Team Providers Care Bridge Worker Apprentice Name Role Phone Chris Boucher MD Primary Care Provider [phone] Allergies No known active allergies Medications loratadine [...] to stage 4 chroni c kidney disease ([facility] V24, [facility] V28) 10/13/2024 CHF (congestive heart failure) ([facility] V24, [facility] V28) 08/23/2023 COVID-19 09/28/2022 Low testosterone 03/16/2019 Vitamin deficiency 03/16/2019 Obstructive sleep apnea 06/21/2016 Essential hypertension 06/06/2015 DDD (degenerative disc disease), cervical 2014 Insomnia 02/05/2014 Alcohol dependence ([facility] V24, [facility] V28) Hyperlipidemia 08/09/2011 Microalbuminuria 08/09/2011 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 ([facility] V24, [facility] V28) 08/09/2011 Asthma 07/18/2011 Major depression 07/18/2011 Obesity (BMI 30.0-34.9) 07/18/2011 Encounters Date Type Department Care Team Description 10/29/2024 Telephone Adult Medicine [address] [address] Chris Boucher MD faxed order ( [employer] order# [id number]) 10/27/2024 10:30 AM EDT Office Visit Adult Medicine [address] [phone] Chris Boucher MD CKD (chronic kidney disease) stage 4, GFR 15-29 ml/min ([facility] V24, [facility] V28) (Primary Dx); Anasarca; Essential hypertension; Type II diabetes mellitus with nephropathy ([facility] V24, [facility] V28) 10/13/2024 1:10 PM EDT - 10/13/2024 11:59 PM EDT Hospital Encounter Radiology Department - [address] [phone] Swelling of right hand Discharge Disposition: Home or Self Care 10/13/2024 9:30 AM EDT Office Visit Adult [address] [phone] Estela Hooker PA Hospital discharge follow-up (Primary Dx); Swelling of right hand; CKD (chronic kidney disease) stage 4, GFR 15-29 ml/min ([facility] V24, [facility] V28); Anemia due to stage 4 chronic kidney disease ([facility] V24, [facility] V28); Chronic congestive heart failure, unspecified heart failure type ([facility] V24, [facility] V28) 10/07/2024 Nurse Triage Adult [address] [phone] Chris Boucher MD Leg Swelling; Foot Swelling 10/05/2024 Telephone Adult [address] [phone] Chris Boucher MD Hospital Follow-up 10/02/2024 Telephone Adult [address] [phone] Chris Boucher MD faxed order ([employer] Health cert and orders [id number], [id number]/) 09/23/2024 Nurse Triage Adult [address] [phone] Chris Boucher MD call from patient ; [...] ial hypertension CHF (congestive heart failur e) ([facility] V24, [facility] V28) 08/23/2023 DX:CHF (congestive heart fa ilure) ([facility]) Family History Medical History Relation Name Comments [...] 11:00 AM EDT Office Visit Adult Medicine [facility] [address] [place] [phone] Chris Boucher MD [address] [place] [phone] Health Maintenance Due Date Last Done Comments [...] EDT Type II diabetes mellitus with nephropathy ([facility] V24, [facility] V28) COMPREHENSIVE METABOLIC PANEL Routine 10/13/2024 9:58 [...] LAB CHEMISTRY METHOD 10/27/2024 4:07 PM EDT [facility] BUN 82(H) 5 - 25 mg/dL LAB CHEMISTRY METHOD 10/27/2024 4:07 PM EDT [facility] Creatinine 6.86(H) 0.70 - 1.30 mg/dL LAB CHEMISTRY METHOD 10/27/2024 4:07 PM EDT [facility] eGFR 8(L) >=60 mL/min/1. 73m2 LAB CHEMISTRY METHOD 10/27/2024 4:07 PM EDT [facility] Comment:Calculation based on the Chronic Kidney Disease Epidemiology Collaboration (CKD-EPI) equation refit without adjustment for race. BUN/Creatinine Ratio 12.0 LAB CHEMISTRY METHOD 10/27/2024 4:07 PM EDT [facility] Calcium 7.9(L) 8.5 - 10.5 mg/dL LAB CHEMISTRY METHOD 10/27/2024 4:07 PM EDT [facility] Blood Venous blood specimen / Unknown Venipuncture / Unknown 10/27/2024 11:11 AM EDT 10/27/2024 11:11 AM EDT us Chris Boucher MD LAB BLOOD ORDERABLES Final Resu lt [facility] [address] [place] [address], * Vascular US duplex upper extremity venous [...] Signed Date: 10/13/2024 15:48 ET Workstation ID: [id number] Transcribed By: Self Edit Transcribed Date: 10/13/2024 [...] Signed Date: 10/13/2024 15:48 ET Workstation ID: [id number] Transcribed By: Self Edit Transcribed Date: 10/13/2024 [...] direct LDL (10/13/2024 9:58 AM EDT) Pathologist [facility] Cholesterol 159 0 - 200 mg/dL LAB CHEMISTRY METHOD 10/13/2024 1:13 PM EDT [facility] Triglycerides 83 0 - 150 mg/dL LAB CHEMISTRY METHOD 10/13/2024 1:13 PM EDT [facility] HDL 68 >=40 mg/dL LAB CHEMISTRY METHOD 10/13/2024 1:13 PM EDT [facility] LDL Calculated 74 0 - 100 mg/dL LAB CHEMISTRY METHOD 10/13/2024 1:13 PM EDT [facility] VLDL Cholesterol Kirk 16.6 mg/dL LAB CHEMISTRY METHOD 10/13/2024 1:13 PM EDT [facility] Non HDL Chol. (LDL+VLDL) 91 <145 mg/dL LAB CHEMISTRY METHOD 10/13/2024 1:13 PM EDT [facility] Chol/HDL Ratio 2.3 0.0 - 4.4 LAB CHEMISTRY METHOD 10/13/2024 1:13 PM EDT [facility] Blood Venous blood specimen / Unknown Venipuncture / Unknown 10/13/2024 9:58 AM EDT 10/13/2024 9:58 AM EDT us Chris Boucher MD LAB BLOOD ORDERABLES Final Resu lt [facility] [address] [place] [address], * (ABNORMAL) CBC auto differential (10/13/2024 9:58 AM EDT) Pathologist [facility] WBC 7.6 4.8 - 10.8 K/mcL LAB HEMETOLOGY METHOD 10/13/2024 12:28 PM EDT [facility] RBC 3.10(L) 4.50 - 5.50 M/mcL [...] % LAB HEMETOLOGY METHOD [facility] Monocytes Relative 8.1 % LAB HEMETOLOGY METHOD 10/13/2024 12:28 PM [facility] Eosinophils Relative 3.9 % LAB HEMETOLOGY METHOD 10/13/2024 12:28 PM [facility] Basophils Relative 0.4 % LAB HEMETOLOGY METHOD 10/13/2024 12:28 [facility] Immature Granulocytes Relative 0.4 % LAB [...] IBANEZ LAB BLOOD ORDERABLES Final Re sult [facility] [address] [place] [address], * (ABNORMAL) Comprehensive metabolic panel (10/13/2024 9:58 AM EDT) Sodium 139 133 - 145 mmol/L LAB CHEMISTRY METHOD 10/13/2024 1:13 PM EDT [facility] Potassium 6.0(H) 3.5 - 5.5 mmol/L LAB CHEMISTRY METHOD 10/13/2024 1:13 PM [facility] Chloride 113(H) 96 - 110 mmol/L LAB CHEMISTRY METHOD 10/13/2024 1:13 PM [facility] CO2 17(L) 21 - 32 mmol/L LAB CHEMISTRY METHOD 10/13/2024 1:13 [facility] Anion Gap 9 3 - 11 [...] LAB CHEMISTRY METHOD 10/13/2024 1:13 PM EDT [facility] AST (SGOT) 12 10 - 42 unit/L LAB CHEMISTRY METHOD 10/13/2024 1:13 PM EDT [facility] ALT (SGPT) 27 10 - 60 unit/L LAB CHEMISTRY METHOD 10/13/2024 1:13 PM EDT [facility] Alkaline Phosphatase 85 42 - 121 unit/L LAB CHEMISTRY METHOD 10/13/2024 1:13 PM EDT [facility] Total Protein 5.5(L) 6.0 - 8.0 g/dL LAB CHEMISTRY METHOD 10/13/2024 1:13 PM T [facility] Albumin 2.2(L) 3.2 - 5.0 g/dL LAB CHEMISTRY METHOD 10/13/2024 1:13 PM [facility] Total Bilirubin 0.2 0.0 - 1.4 mg/dL LAB CHEMISTRY METHOD 10/13/2024 1:13 PM T [facility] Blood Venous blood specimen / Unknown Venipuncture / Unknown 10/13/2024 9:58 AM EDT 10/13/2024 9:58 AM EDT Chris Boucher MD LAB BLOOD ORDERABLES Final Resu lt [facility] [address] [place] [address], * Urine Albumin Creatinine Ratio (01/28/2024) Urine Albumin Creatinine Ratio abstracted Historical Provider HEALTH MAINTENANCE Final Result * Depression Screening (01/28/2024) Depression Screening abstracted Historical Provider HEALTH MAINTENANCE Final Result * (ABNORMAL) Hemoglobin A1c (01/28/2024) Hemoglobin A1C 7.6(A) <=6.5 % Blood Venous blood specimen / Unknown Historical Provider LAB BLOOD ORDERABLES Kayla l Result * Diabetes Eye Exam (12/10/2023) Pathologist [facility] Diabetes: Annual Retina Eye Exam abstracted Historical Provider HEALTH MAINTENANCE Final Result * Hepatitis C Screening (02/19/2023) Pathologist [facility] Hepatitis C Screening abstracted Historical Provider HEALTH MAINTENANCE Final Result from Last 3 Months or Most Recently Relevant to Health Maintenance Insurance [facility] [employer] Care Teams Bridge Worker Apprentice Relationship Specialty Start Date End Date Chris Boucher MD [address] [place] [phone] PCP - General Internal Medicine 09/06/14
--- OUTSIDE RECORDS SUMMARY | 2024-11-04 13:03 | XMS_ITS | Encounter Summary ---
Author Organization [facility] Address [address] [place] [address] Care Team Providers Care Golf Superintendent Name Role Phone Chris Boucher MD Primary Care Provider [phone] Reason for Visit * Reason Onset Date Comments faxed order 10/29/2024 [employer] order# [id number] Encounter Details Date Type Department Care Team (Late st Contact Info) Description 10/29/2024 Telephone Adult Medicine [address] [phone] Chris Boucher MD [address] [place] [phone] faxed order ( [employer] order# [id number]) Social History Tobacco Use Types Packs/Day Years [...] Hortencia Carlson - 10/29/2024 3:23 PM EDT [employer] order# [id number] received please sign and fax to [phone] documented in this encounter Plan of Treatment Upcoming Encounters Date Type Department Care Team (Late st Contact Info) Description 03/01/2025 11:00 AM EDT Office Visit Adult Medicine [address] [phone] Chris Boucher MD [address] [place] [phone] documented as of this encounter Visit Diagnoses Not on filedocumented in this encounter Care Teams Golf Superintendent Relationship Specialty Start Date End Date Chris Boucher MD [address] [place] [address] [phone] PCP - General Internal Medicine 09/06/14 documented as of this encounter
[2024-11-04 13:19] LABS: MANUAL DIFF FLAG NO
[2024-11-04 13:29] LABS: Basophils Percent Auto 0.2 % (0-2); Eosinophils Absolute Auto 0.1 X10*3/uL (0.0-0.4); Eosinophils Percent Auto 3.3 % (0-4); Hematocrit 27.4 % (42.0-52.0); Imm Gran Abs Auto 0.01 X10*3/uL (0.00-0.03); Imm Gran Pct Auto 0.2 % (0.0-0.4); Lymphocytes Percent Auto 24.5 % (20-40); Mean Corpuscular HGB Conc 32.8 g/dl (31.0-36.0); Mean Corpuscular Hemoglobin 29.9 pg (27.0-33.0); Mean Platelet Volume 10.3 fL (9.4-12.4); Monocytes Absolute Auto 0.3 X10*3/uL (0.1-1.2); Monocytes Percent Auto 7.8 % (2-11); Neutrophils Absolute Auto 2.7 x10*3/uL (2.0-8.3); Platelet Count 194 X10*3/uL (160-400); Red Blood Count 3.01 X10*6/uL (4.60-5.80); Red Cell Distribution Width 16.3 % (11.0-16.0); White Blood Count 4.2 X10*3/uL (4.8-10.8)
[2024-11-04 13:34] LABS: Prothrombin Time 11.2 SEC (10.9-12.4)
[2024-11-04 14:52] LABS: Ferritin 421 ng/mL (20-250); Vitamin D 25-OH Total 12.7 ng/mL (>30)
[2024-11-04 15:00] LABS: Parathyroid Hormone Intact 229.4 pg/mL (8.7-77.1)
[2024-11-04 15:02] LABS: Anion Gap 12 (12-20); Blood Urea Nitrogen 90 mg/dL (9-16); Calcium 7.8 mg/dL (8.4-10.2); Carbon Dioxide 19 mmol/L (22-29); Chloride 113 mmol/L (96-108); Estimated Glomerular Filt Rate 9; Iron 41 mcg/dL (45-160); Percent Iron Saturation 26 % (15-50); Phosphorus 5.8 mg/dL (2.7-4.5); Potassium 5.8 mmol/L (3.3-5.1); Sodium 138 mmol/L (135-145); Total Iron Binding Capacity 159 mcg/dL (228-428); Unsaturated Iron Binding 118 ug/dL
[2024-11-05 04:44] LABS: HBsAGNum1 0.44 S/CO (0.00-0.99); Hepatitis B Core Antibody Nonreactive (Nonreactive); Hepatitis B Surface Antigen Negative (Negative)
[2024-11-05 11:48] LABS: Complement C3 100 mg/dL (82-185)
[2024-11-06 12:04] LABS: Anti DNA DS Antibody <1 IU/mL; Anti Glomerular Basement Memb <1.0 AI; Myeloperoxidase Antibody <1.0 AI; Proteinase 3 PR3 Antibodies <1.0 AI
[2024-11-06 12:19] LABS: IgA 220 mg/dL (70-320); IgG 981 mg/dL (600-1540); IgM 132 mg/dL (50-300)
[2024-11-10 20:38] LABS: Phospholipase A2 IgG ELISA <4 RU/mL; Phospholipase A2 IgG IFA NEGATIVE (NEGATIVE)
== END 2024-11-04 12:00 | disposition home or self-care (01) ==
LOC: HO.10HDL 11:59
PROVIDERS: Visit Provider Internal Medicine Nephrology
DX: N17.9 Acute kidney failure, unspecified (principal); N18.9 Chronic kidney disease, unspecified; I10 Essential (primary) hypertension; R60.9 Edema, unspecified; N25.81 Secondary hyperparathyroidism of renal origin
CPT/HCPCS: 80051; 82306; 82310; 82565; 82728; 82784; 83520; 83540; 83970; 84100; 84520; 85025; 85610; 86021; 86160; 86225; 86255; 86334; 86335; 86704; 87340; 99212

== ENCOUNTER 2024-11-11 11:17 | Outpatient (AMB) | payer OTHER, SELFPAY ==
--- NOTE | 2024-11-11 11:34 | HO.NEPHOV ---
Vital Signs 11/11/24 11:35 Height 5 ft 8 in Weight 228 lb BMI 34.7 BP 168/90 H Blood Pressure Location Rt brachial Position Sitting Pulse 63 Pulse Source Pulse Oximeter Pulse Oximetry (%) 96 Oxygen Delivery Method Room Air Intake Visit Reasons: 1 week f/U- Conf Security Infrastructure Engineer Required: No Accompanied by: Family/Other Allergies No Known Allergies Allergy (Verified 11/11/24 13:06) HPI Comments Details: 59 year old male with advanced CKD and nephrotic range proteinuria from diabetic nephropathy as well as HF with mildly reduced EF and HTN is being seen today for F/U. He has been having worsening renal function in the setting of peripheral edema of the legs and hands along with orthopnea and generalized weakness. He notes metallic taste in his mouth. Last admitted here 10/21-10/26/24 for CHF exacerbation/volume overload requiring furosemide drip. Creatinine is now above 6 and BUN 75-90. He denies chest pain, fever, or cough. He feels well and tired with reduced appetite. He is unable to walk due to heaviness of the legs from edema. His UO is fair. He was accompanied by his son in law and his ex . [facility] Medical History (Updated 11/13/24 @ 10:28 by Lewis Willett MD) Hypertension Anemia of chronic disease Chronic kidney disease Congestive heart failure Chronic HFrEF (heart failure with reduced ejection fraction) Anemia RACHEL (obstructive sleep apnea) Heart failure Hypercholesterolemia Diabetes Family History Mother Kidney disease Hypertension Father Hypertension Social History Household Members: None Household Members Other:: grandson Housing: House Do you presently have visiting nurse or other home services: Yes (house cleaning assistance.) Alcohol intake: never Patient Tobacco Use Status: Former Tobacco user Tobacco use type: Cigarette Second Hand Smoke Exposure: No Advance Directives Date on File: 08/08/23 service: No Review of Systems Const All systems reviewed & are unremarkable except as noted in HPI and below Physical Exam Vital Signs: Last Vital Signs Pulse 63 11/11/24 11:35 BP 168/90 H 11/11/24 11:35 Pulse Ox 96 11/11/24 11:35 Oxygen Delivery Method Room Air 11/11/24 11:35 BMI result Body Mass Index 34.7 Const General: comfortable and no acute distress Orientation/consciousness: patient oriented x3 HEENT Head: Yes normocephalic Mouth: Normal oral and palatal mucosa present Eyes EOM: EOMs intact bilaterally Neck Neck: Yes supple Resp Auscultation: diminished lung sounds Cardio Jugular venous distension: no JVD Rate: regular rate GI Palpation (GI): Soft to palpation Auscultation: normal bowel sounds General: Yes no CVA tenderness Back/Spine/Pelvis Back: no CVA tenderness Skin General skin exam: no rashes or lesions noted Neuro General: patient oriented x3 and moves all extremities Extrem Other: UE and LE edema Results Reviewed Nephrology Results: Hgb 7.7 g/dl (14.0-18.0) L 11/14/24 WBC 3.9 X10*3/uL (4.8-10.8) L 11/14/24 Plt Count 131 X10*3/uL (160-400) L 11/14/24 Sodium 140 mmol/L (135-145) 11/14/24 Potassium 4.2 mmol/L (3.3-5.1) 11/14/24 Chloride 111 mmol/L (96-108) H 11/14/24 Carbon Dioxide 20 mmol/L (22-29) L 11/14/24 BUN 81 mg/dL (9-16) H 11/14/24 Creatinine 7.17 mg/dL (0.5-1.4) H* 11/14/24 Calcium 7.7 mg/dL (8.4-10.2) L 11/14/24 Phosphorus 5.8 mg/dL (2.7-4.5) H 11/04/24 PTH Intact 229.4 pg/mL (8.7-77.1) H 11/04/24 Urine Protein >=1000 (4+) mg/dL (Neg-Trace) H 11/11/24 Protein/Creatinin Ratio Pending 11/13/24 Renal US 11/12/24 Assessment & Plan Assessment & Plan (1) CKD stage 5 due to type 2 diabetes mellitus: Code(s): E11.22 - Type 2 diabetes mellitus with diabetic chronic kidney disease; N18.5 - Chronic kidney disease, stage 5 Category: Medical (2) Secondary hyperparathyroidism (of renal origin): Code(s): N25.81 - Secondary hyperparathyroidism of renal origin Category: Medical (3) Edema: Code(s): R60.9 - Edema, unspecified Category: Medical Qualifiers: Edema type: localized Qualified Code(s): R60.0 - Localized edema (4) Hypertension: Code(s): I10 - Essential (primary) hypertension Category: Medical Qualifiers: Hypertension type: unspecified Qualified Code(s): I10 - Essential (primary) hypertension (5) Acute kidney injury superimposed on CKD: Code(s): N17.9 - Acute kidney failure, unspecified; N18.9 - Chronic kidney disease, unspecified Category: Medical Plan 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
[2024-11-11 11:35] VITALS: BP 168/90; PULSE 63; O2SAT 96; BMI 34.7
--- OUTSIDE RECORDS SUMMARY | 2024-11-11 12:18 | XMS_ITS | Data Portability ---
Author Organization [facility] [address] Address [address] [place] [address] Assessment No assessment recorded. Plan of Treatment [...] Send Out Template DOT completed DO Torres [facility] 06/08/2022 11:09:39 Imaging Results None recorded. Procedure [...] SNOMED-CT Code Diagnosis ICD10 Code Diagnosis Note [id number] [address] [place] [address] 11/28/2021 16:43:51 11/28/2021 18:50:06 [id number] [address] [place] [phone] 04/02/2018 15:05:18 04/02/2018 15:37:34 [id number] SAMUEL MARQUEZ MD [address] [place] [phone] 06/08/2022 08:32:26 06/08/2022 14:21:11 History and physical examination, pre-employment [id number] Z02.1 Documentat ion for this visit can [...] ID Guarantor Name 06/08/2022 OC-ESCREEN Dillon Lucio [id number] Dillon Lucio
== END 2024-11-11 11:57 | disposition home or self-care (01) ==
LOC: HO.HKA 11:18
PROVIDERS: PCP Internal Medicine; Visit Provider Internal Medicine Nephrology
DX: I12.9 Hypertensive chronic kidney disease with stage 1 through stage 4 chronic kidney disease, or unspecified chronic kidney disease (principal); E11.22 Type 2 diabetes mellitus with diabetic chronic kidney disease; N18.5 Chronic kidney disease, stage 5; N25.81 Secondary hyperparathyroidism of renal origin; R60.0 Localized edema; N17.9 Acute kidney failure, unspecified; N18.9 Chronic kidney disease, unspecified
CPT/HCPCS: 99215

== ENCOUNTER → 2024-11-11 11:17 | Outpatient (BNVA) | payer OTHER, SELFPAY | PROVIDERS: PCP Internal Medicine; Visit Provider Internal Medicine Nephrology | DX: E11.22 Type 2 diabetes mellitus with diabetic chronic kidney disease (principal); E11.21 Type 2 diabetes mellitus with diabetic nephropathy; I12.9 Hypertensive chronic kidney disease with stage 1 through stage 4 chronic kidney disease, or unspecified chronic kidney disease; N18.5 Chronic kidney disease, stage 5; N25.81 Secondary hyperparathyroidism of renal origin; R60.0 Localized edema; N17.9 Acute kidney failure, unspecified | CPT/HCPCS: 99212 ==

== ENCOUNTER 2024-11-11 12:03 | Inpatient (IN) | payer OTHER, SELFPAY ==
--- NOTE | ~2024-11-11 | US_ITS ---
EXAMINATION: Ultrasound renal bilaterally. Ultrasound renal Doppler. CLINICAL INFORMATION: Renal failure. COMPARISON: October 22, 2024. TECHNIQUE: Real-time ultrasound kidneys using grayscale and color Doppler technique. Spectral color Doppler analysis of the renal arteries and the abdominal aorta at the origin of the renal arteries. FINDINGS: RIGHT KIDNEY: 11 x 5 x 6 cm. Volume: 185 cc. Normal echotexture. Renal cortical thickness is normal. No solid or cystic lesion detected by the technologist.. No hydronephrosis. Trace of fluid, perirenal/pararenal. LEFT KIDNEY: 12 x 6 x 5 cm. Volume: 179 cc. Normal echotexture. Normal renal cortical thickness. No hydronephrosis. No solid or cystic lesion detected by the technologist. SPECTRAL DOPPLER ANALYSIS: Right Kidney: -Peak systolic velocity in the proximal right renal artery = 90 cm/s. Normal waveforms. -Peak systolic velocity in the mid right renal artery = 99 cm/s. Normal waveforms. -Peak systolic velocity in the distal right renal artery = 82 cm/s. Normal waveforms. -Patent right renal vein. -Upper pole interlobar artery resistive index of 0.59. -Midpole interlobar artery resistive index of 0.81. -Lower pole interlobar artery resistive index of 0.73. RAR right = none applicable due to peak systolic velocity in the aorta. Left Kidney: -Peak systolic velocity in the proximal left renal artery = 138 cm/s. Normal waveforms. -Peak systolic velocity in the mid left renal artery = 103 cm/s. Normal waveforms. -Peak systolic velocity in the distal left renal artery = 71 cm/s. Normal waveforms. -Patent left renal vein. -Upper pole interlobar artery resistive index of 0.76. -Mid pole interlobar artery resistive index of 0.76. -lower pole interlobar artery resistive index of 0.74. RAR left = none applicable due to peak systolic velocity in the aorta. Aorta: -Peak systolic velocity = 105 cm/s. US/US renal doppler IMPRESSION: No hemodynamically significant stenosis in either main renal artery. Slight abnormal resistive indicis, right kidney. No hydronephrosis. Trace of fluid, right perirenal/paranephric. Probably related to recent biopsy. Recommend follow-up. Electronically signed by: Adiel Painter MD 11/12/2024 03:45 PM EDT RP
--- NOTE | ~2024-11-11 | CT_ITS ---
PROCEDURE: CT GUIDED BIOPSY, KIDNEY CLINICAL INFORMATION: Renal failure COMPARISON: None available. TECHNIQUE: Following explaining CT fluoroscopy guided right renal biopsy procedure, benefits and risk, a written consent was obtained. Patient was placed prone on CT fluoroscopy table preliminary imaging was obtained through the abdomen with attention the kidneys. A marker was placed overlying the right kidney and the area was marked on the skin. The marked site was cleaned and draped in usual sterile manner. 1% lidocaine was injected puncture site. Through a small skin incision an 18-gauge guide needle was advanced from the skin into the lower pole of right kidney. Coaxially an 18-gauge biopsy gun was administered and 3 pass biopsy was obtained. After removing the gun, Gelfoam was inserted to the guide needle to obtain hemostasis. The guide needle was removed and repeat CT imaging was obtained. Sterile Band-Aid applied postprocedure. This CT examination was performed using dose optimization techniques as appropriate, variously including the following: *Automated exposure control *Adjustment of mA and/or kV according to patient size (this includes techniques or standardized protocols for targeted exams where dose is matched to indication/reason for exam; i.e. extremities or head) *Use of iterative reconstruction technique FINDINGS: Comparison there are CT imaging the kidneys are symmetrical and normal. Visualized liver, spleen, pancreas, gallbladder and adrenal glands are unremarkable. The kidneys are symmetrical as well. No radiopaque renal calculi seen. There is scattered stool in colon. 3 pass lower pole right renal 4 biopsy performed with the 18-gauge gun. CT/CT biopsy renal RT IMPRESSION: Successful CT fluoroscopy guided right renal core biopsy performed. Electronically signed by: Adrián Hernandez MD 11/16/2024 04:03 PM EDT
--- NOTE | ~2024-11-11 | US_ITS ---
CLINICAL HISTORY: swelling VENOUS DUPLEX ULTRASOUND LEFT LOWER EXTREMITY Comparison: None Findings: The visualized deep veins are fully compressible with normal Doppler color flow and spectral tracings. No popliteal cyst. A borderline enlarged lymph node in the left groin demonstrates benign morphology. IMPRESSION: 1. Negative for left lower extremity deep vein thrombosis. This document has been electronically signed by: Maira Anderson DO on 11/16/2024 18:58:56
--- NOTE | ~2024-11-11 | CT_ITS ---
EXAMINATION: CT ABDOMEN AND PELVIS WITHOUT CONTRAST CLINICAL INFORMATION: Follow up right renal biopsy one day ago COMPARISON: November 16, 2024 TECHNIQUE: Multidetector volumetric imaging was performed from the superior aspect of the liver through the pubic symphysis. Sagittal and coronal reformatted images were obtained on the technologist's workstation. This CT examination was performed using dose optimization techniques as appropriate, variously including the following: *Automated exposure control *Adjustment of mA and/or kV according to patient size (this includes techniques or standardized protocols for targeted exams where dose is matched to indication/reason for exam; i.e. extremities or head) *Use of iterative reconstruction technique DLP: 583 mGY*cm FINDINGS: LUNG BASES: Trace right and small left layering pleural effusions are new since the study yesterday. LIVER, GALLBLADDER, AND BILIARY TREE: The liver is normal in size, shape, and attenuation. No focal hepatic lesion or biliary ductal dilatation is present. The gallbladder is unremarkable with no evidence of radiopaque gallstones, gallbladder wall thickening, or obvious pericholecystic inflammatory changes. PANCREAS: Unremarkable. SPLEEN: Unremarkable. ADRENAL GLANDS: Unremarkable. KIDNEYS AND URETERS: There is high density forming a biconvex margin and resulting in mass effect in the perinephric space of the posterior right kidney compressing and displacing renal parenchyma anteriorly. The increased attenuation is new and in the region of recent biopsy. It measures up to 2.5 cm thick and extends from the upper kidney to the lower pole. There is also residual air that was present after the biopsy. There is also mild perinephric fat stranding extending anterior to the aorta and IVC. The left kidney is unchanged. There are no kidney stones. BLADDER: Unremarkable. GASTROINTESTINAL TRACT: The small and large bowel are unremarkable. The appendix is unremarkable. ABDOMINAL WALL: There is mild to moderate fat stranding increased since the prior over the right flank but stable otherwise. LYMPH NODES: Normal. VASCULAR: Vascular calcifications are present in the abdominal aorta and iliac and femoral arteries. PELVIC VISCERA: Unremarkable. OSSEOUS STRUCTURES: Bridging osteophyte are present in the lower thoracic spine and at the anterior superior L3 vertebral body consistent with diffuse idiopathic skeletal hyperostosis (DISH). CT/CT abdomen pelvis wo IV con IMPRESSION: New right perinephric hematoma along the posterior right kidney with mass effect. Mild perinephric fat stranding. [id number] right flank subcutaneous edema/ecchymosis. New trace right and small left layering pleural effusions. Changes consistent with diffuse idiopathic skeletal hyperostosis (DISH) in the lower thoracic spine. Fleischner guidelines were followed. Electronically signed by: Ramírez Brock MD 11/17/2024 11:27 AM EDT
--- NOTE | ~2024-11-11 | US_ITS ---
EXAMINATION: US KIDNEY RIGHT HISTORY: asses for hematoma, post biopsy TECHNIQUE: Real-time grayscale ultrasound imaging of the right kidney was performed and images were reviewed. COMPARISON: Correlation is made with an unenhanced CT of the abdomen dated 11/17/2024. FINDINGS: Right kidney: The right kidney measures 10.8 x 7.5 x 6.7 cm. There is a heterogeneous, predominantly echogenic mass in the midportion of the kidney measuring 4.8 x 4.1 by 3.9 cm compatible with the subcapsular hematoma noted on CT. Comparison is difficult due to the differences in the modality. There is no hydronephrosis or renal calculi. US/US renal RT IMPRESSION: 4.8 x 4.1 x 3.9 cm echogenic mass in the midportion of the right kidney consistent with the subcapsular hematoma noted on CT. Comparison with the CT is difficult due to differences in the modality. Electronically signed by: Kee Haddad MD 11/18/2024 01:34 PM EDT
--- NOTE | ~2024-11-11 | IR_ITS ---
CLINICAL HISTORY: End-stage renal disease. The patient presents to interventional radiology for placement of a tunneled central venous catheter for hemodialysis. PROCEDURES: 1. Real-time ultrasound-guided access into the right internal jugular vein after documentation of selected vessel patency, and permanent imaging storing in the patient record. 2. Placement of a 14.5 fr 23 cm tunneled, dual-lumen hemodialysis catheter. Clinician: Antonio Matthews NP MEDICATIONS: -Fentanyl , Versed, Lidocaine 1% 10 mL SQ. -Antibiotics: Ancef -For additional details, please see nursing flowsheet. COMPLICATIONS: None. ESTIMATED BLOOD LOSS: <5 ml SPECIMENS: None FLUOROSCOPY TIME: 0.2 min MODERATE SEDATION TIME: 30 min PROCEDURE NOTE: The procedure, risks, benefits, and alternatives were carefully explained to patient, and written informed consent was obtained. The patient was placed supine on the fluoroscopy table. A timeout was performed. The right neck and chest was prepped and draped in usual sterile fashion. Local anesthesia was administered to the access site with lidocaine. Under ultrasound guidance, the right internal jugular vein was accessed with a 5 Fr micropuncture set. A 0.035 in wire was advanced to the IVC to maintain access during the tunneling process. Next, subcutaneous lidocaine was administered to the chest. Using blunt dissection, a subcutaneous tunnel was created that connects from the upper chest to the venotomy site. The dialysis catheter was pulled through the tunnel. The tract in the vein was dilated and a peel-away sheath was advanced over the wire. The catheter was advanced through the sheath, which was subsequently peeled away. The catheter was tested, flushed, and sutured to the skin with its tip in the high right atrium. A permanent fluoroscopic image of the chest was saved to PACS. The catheter ports were packed with heparin per routine protocol. The patient was stable after the procedure and was transferred to the post anesthesia care unit. This procedure was performed under moderate sedation with a dedicated nurse and continuous monitoring of vital signs. FINDINGS: 1. Patent right internal jugular vein. 2. Placement of a tunneled, dual-lumen hemodialysis catheter as above. 3. Catheter flushes and aspirates very well with a 10 mL syringe. No pneumothorax. IR/IR cvc insert central tunnel IMPRESSION: Placement of a tunneled hemodialysis catheter in the right internal jugular vein. PLAN: -The catheter may be used immediately. This procedure was performed by Antonio Matthews NP, and directly supervised by Trevon Edwards M.D.. Electronically signed by: Trevon Edwards MD 11/24/2024 02:47 PM EDT
--- NOTE | ~2024-11-11 | XR_ITS ---
EXAMINATION: XR CHEST CLINICAL INFORMATION: sob, fluid overload COMPARISON: 10/21/2024. TECHNIQUE: 2 views of the chest were obtained. FINDINGS: The cardiac, hilar, and mediastinal contours are normal. The lungs are clear bilaterally. There is no pneumothorax or definitive pleural effusion. There is no focal osseous or soft tissue abnormality. XR/XR chest 2V IMPRESSION: No active pulmonary disease. Electronically signed by: Prosper Ward MD 11/11/2024 01:30 PM EDT
[2024-11-11 13:04] VITALS: BP 177/87; PULSE 66; RESP 18; TEMP 36.2; O2SAT 97; BMI 34.6
--- NOTE | 2024-11-11 13:04 | ED.GENADULT ---
HPI - General Adult General Chief complaint: General Medical Stated complaint: Fluid From Kidneys Time Seen by Provider: 11/11/24 14:09 Source: patient Mode of arrival: ambulatory Limitations: no limitations History of Present Illness HPI narrative: This is a 59-year-old man with a past medical history of RACHEL on CPAP, HFrEF, IDDM, hypertension, mixed hyperlipidemia, CKD 5 who presents for evaluation of edema and worsening renal function. Patient states seeing his director financial services, Dr. Castro, today in being sent to the emergency room to be admitted to the hospital for a few days. He states that he has had increased swelling thanks and hands. He states also noting some swelling to his eyelid. He states associated orthopnea. He states no chest pain. He reports feeling tired. He states no back pain or abdominal pain. He states no nausea, vomiting or diaphoresis. He states no recent fevers. Related Data Home Medications ?Medication ?Instructions ?Recorded ?Confirmed nifedipine 30 mg tablet,extended 90 mg PO DAILY 11/20/23 10/22/24 release 24 hr sertraline 50 mg tablet 50 mg PO DAILY 10/02/24 10/22/24 cholecalciferol (vitamin D3) 1,250 1,250 mcg PO QWEEK 11/04/24 mcg (50,000 unit) capsule leflunomide 10 mg tablet 20 mg PO DAILY 11/04/24 rosuvastatin 40 mg tablet 40 mg PO DAILY 11/04/24 sulfasalazine 500 mg tablet 0.5 g PO DAILY 11/04/24 aripiprazole 2 mg tablet (Abilify) 2 mg PO DAILY 11/11/24 atorvastatin 80 mg tablet 80 mg PO BEDTIME 11/11/24 bupropion HCl 150 mg 24 hr tablet, 150 mg PO DAILY 11/11/24 extended release (Wellbutrin XL) calcitriol 0.25 mcg capsule 0.25 mcg PO DAILY 11/11/24 clonidine HCl 0.1 mg tablet 0.1 mg PO BID 11/11/24 dapagliflozin propanediol 5 mg 5 mg PO DAILY 11/11/24 tablet (Farxiga) furosemide 20 mg tablet 20 mg PO DAILY 11/11/24 hydralazine 50 mg tablet 50 mg PO TID 11/11/24 mirtazapine 15 mg tablet 15 mg PO BEDTIME 11/11/24 sevelamer carbonate 800 mg tablet 800 mg PO TID 11/11/24 sodium bicarbonate 650 mg tablet 1,300 mg PO BID 11/11/24 spironolactone 25 mg tablet 25 mg PO DAILY 11/11/24 trazodone 50 mg tablet 50 mg PO BEDTIME 11/11/24 zolpidem 10 mg tablet 10 mg PO BEDTIME 11/11/24 Previous Rx's ?Medication ?Instructions ?Recorded blood pressure monitor (Blood #1 ea 01/31/24 Pressure Kit) carvedilol 25 mg tablet 25 mg PO BID #180 tabs 04/29/24 bumetanide 1 mg tablet 3 mg PO BID@0800,1700 #180 tabs 10/26/24 sodium polystyrene sulfonate 30 g PO DAILY 1 month #453.6 grams 11/05/24 torsemide 20 mg tablet 40 mg (2 x 20 mg) PO BID 30 days 11/05/24 #120 tabs Allergies Allergy/AdvReac Type Severity Reaction Status Date / Time No Known Allergies Allergy Verified 11/11/24 13:06 Review of Systems Review of Systems: ROS as per HPI [facility] Past Medical History Medical History (Updated 11/11/24 @ 15:17 by Kat Jose, DNP, EFFICIENCY EXPERT-BC) Hypertension Anemia of chronic disease Chronic kidney disease Congestive heart failure Chronic HFrEF (heart failure with reduced ejection fraction) Anemia RACHEL (obstructive sleep apnea) Heart failure Hypercholesterolemia Diabetes Family History Family History Mother Kidney disease Hypertension Father Hypertension Social History Social History Household Members: None Household Members Other:: grandson Housing: Apartment Do you presently have visiting nurse or other home services: No Alcohol intake: never Patient Tobacco Use Status: Former Tobacco user Tobacco use type: Cigarette Smoked in Last 30 Days: No Second Hand Smoke Exposure: No Use of substances other than those prescribed or required for medical reasons: No Advance Directives: Yes Advance Directives on File: Yes Advance Directives Date on File: 08/08/23 Do you have a plan to hurt others: No Plan service: No Physical Exam ED Vital Signs: Vital Signs - 24 hr 11/11/24 13:04 11/11/24 15:16 Temperature 97.1 F 98 F Pulse Rate 66 66 Respiratory Rate 18 14 Blood Pressure 177/87 H 186/92 H Pulse Oximetry 97 96 Oxygen Delivery Method Room Air Room Air BMI result Body Mass Index 34.6 Gen: NAD, AOx3 HEENT: NCAT, EOMI, normal conjunctiva, pitting edema to eyelid L>R CV: RRR, 4+ bilateral lower extremity peripheral pitting edema extending superiorly to the inferior abdomen Pulm: CTAB GI: Soft, NTND, no rebound, guarding or rigidity Neuro: Grossly non focal Course Course Course Narrative: 11/11/24 1304 MARCELLE Naidu This is a Rapid Medical Examination (RME) performed by Amos Middleton PA-C in triage. Full HPI, ROS, assessment and treatment plan per primary provider in the Main ED. Hx: 59 yo M hx SA on CPAP, HFrEF (echo 09/08 EF 45-50%), IDDM, HTN, mixed hyperlipidemia, advanced CKD here from nephro office for eval of b/l UE and LE edema w/ SOB, VAZQUEZ, and orthopnea. recent 20 lb weight gain. not on dialysis. states he was sent here for admission. PE/vitals: 3+ pitting edema to b/l LEs. noted swelling to UEs and face. Plan: labs, CXR, ekg Medical Decision Making Medical Decision Making [facility] Narrative: Differential diagnosis includes, but is not limited to acute on chronic kidney disease, acute decompensated congestive heart failure, electrolyte derangement. Patient is afebrile and hemodynamically stable on room air. Exam is for peripheral pitting edema. I reviewed the patient's labs, EKG and chest x-ray as below. I discussed case and management with the recruiting consultant director financial services and glassware selector as below. I discussed case and management with admitting hospitalist, Dr. Swenson, who accepts the patient for further workup and management. Critical Care Time: A total of 45 minutes spent in direct patient care with coordinating critical resuscitation, procedures, reviewing records, discussing with consultants, reviewing labs, and/or managing patient. Admission/Observation Consideration of admission/observation: Escalation of care including admission/observation considered Consult Healthcare Provider Management of the patient was discussed with: Hospitalist and Terry Cloth Cutter Hand I discussed the patient's case and management with director financial services, Dr. Castro, who recommends diuresis with Bumex GTT at 1 mg/hour. I discussed the patient's case and management including elevated troponin and EKG changes with recruiting consultant glassware selector, Dr. Willett, who agrees with the current management and recommended serial troponins at this time. Lab Data MDM Lab Attestation statement: I reviewed the patient's lab results. Labs were notable for stable chronic anemia with hemoglobin 8.7 (previous 9.0), thrombocytopenia with a platelet count 145, BUN 75, creatinine 6.16, troponin 308 (I suspect that this is likely demand in the setting of renal failure and fluid overload), BNP 2597, viral panel negative 11/11/24 13:30 11/11/24 13:30 Labs: Lab Results 11/11/24 Range/Units 13:30 WBC 4.9 (4.8-10.8) X10*3/uL RBC 2.98 L (4.60-5.80) X10*6/uL Hgb 8.7 L (14.0-18.0) g/dl Hct 27.1 L (42.0-52.0) % MCV 90.9 (80.0-98.0) fL MCH 29.2 (27.0-33.0) pg MCHC 32.1 (31.0-36.0) g/dl RDW 15.4 (11.0-16.0) % Plt Count 145 L D (160-400) X10*3/uL MPV 10.7 (9.4-12.4) fL Immature Gran % (Auto) 0.2 (0.0-0.4) % Neut % (Auto) 76.2 H (45-73) % Lymph % (Auto) 15.7 L (20-40) % Sibley % (Auto) 5.1 (2-11) % Eos % (Auto) 2.6 (0-4) % Baso % (Auto) 0.2 (0-2) % Lymph # (Auto) 0.8 L (1.2-4.9) X10*3/uL Sibley # (Auto) 0.3 (0.1-1.2) X10*3/uL Eos # (Auto) 0.1 (0.0-0.4) X10*3/uL Baso # (Auto) 0.0 (0.0-0.2) X10*3/uL Abs Immat Gran (auto) 0.01 (0.00-0.03) X10*3/uL Absolute Neuts (auto) 3.8 (2.0-8.3) x10*3/uL Absolute Nucleated RBC 0.000 (0.0-0.012) X10*3/uL Nucleated RBC % (auto) 0.0 (0.0-0.2) /100WBC Sodium 139 (135-145) mmol/L Potassium 4.8 (3.3-5.1) mmol/L Chloride 112 H (96-108) mmol/L Carbon Dioxide 20 L (22-29) mmol/L Anion Gap 12 (12-20) BUN 75 H (9-16) mg/dL Creatinine 6.16 H* (0.5-1.4) mg/dL Estim Creat Clear Calc 14.6 Estimated GFR 9 Random Glucose 96 (60-115) mg/dL Calcium 8.0 L (8.4-10.2) mg/dL Magnesium 1.8 (1.6-2.6) mg/dL Total Bilirubin 0.3 (0.0-1.0) mg/dL AST 22 (5-37) U/L ALT 19 (0-40) U/L Alkaline Phosphatase 101 (39-117) U/L Troponin I High Sens 308.4 H* D (<3.5-35.0) ng/L B-Natriuretic Peptide 2597 H (<100) pg/mL Total Protein 5.9 L (6.5-8.0) g/dL Albumin 2.8 L (3.5-5.0) g/dL Influenza Type A (PCR) NEGATIVE (Negative) Influenza Type B (PCR) NEGATIVE (Negative) RSV RNA Qual (PCR) NEGATIVE (Negative) SARS-CoV-2 RNA (RT-PCR) NEGATIVE (Negative) Independent Interpretation I performed an independent interpretation of an: EKG and Plain X-Ray Interpretation: EKG demonstrates sinus rhythm at 65 beats per minute, UT 180, QRS 90, QTC 476, no STEMI, biphasic/T-wave inversions in lead V3-V6 (compared to previous EKG T-wave changes are new). Chest x-ray demonstrates no pleural effusion, focal consolidation or pneumothorax Radiology Impression Discussion of test interpretation with radiology: I have reviewed the radiologist's reading. Radiologist Impression: XR/XR chest 2V IMPRESSION: No active pulmonary disease. Electronically signed by: Prosper Ward MD 11/11/2024 01:30 PM EDT RP Dictated By: Prosper Ward MD Signed By: <Electronically signed by Prosper Ward MD in OV> 11/11/24 1330 Discharge Plan Discharge Clinical Impression: Acute kidney failure, Anemia, Thrombocytopenia, Acute uremia, Elevated brain natriuretic peptide (BNP) level, Elevated troponin Patient Disposition: Admitted As Inpatient
--- NOTE | 2024-11-11 13:08 | ECG_ITS ---
Test Reason : SOB Blood Pressure : */* mmHG Vent. Rate : 65 BPM Atrial Rate : 65 BPM P-R Int : 180 ms QRS Dur : 90 ms QT Int : 458 ms P-R-T Axes : 27 4 135 degrees QTcB Int : 476 ms Normal sinus rhythm Cannot rule out Anterior infarct (cited on or before 21-Oct-2024) ST & T wave abnormality, consider lateral ischemia Abnormal ECG When compared with ECG of 21-Oct-2024 18:48, Serial changes of Anterior infarct Present Referred By: Halley Middleton Electronically Signed By: TRACEY PARKS MD
[2024-11-11 13:35] LABS: MANUAL DIFF FLAG NO
[2024-11-11 13:47] LABS: Basophils Percent Auto 0.2 % (0-2); Eosinophils Absolute Auto 0.1 X10*3/uL (0.0-0.4); Eosinophils Percent Auto 2.6 % (0-4); Hematocrit 27.1 % (42.0-52.0); Hemoglobin 8.7 g/dl (14.0-18.0); Imm Gran Abs Auto 0.01 X10*3/uL (0.00-0.03); Imm Gran Pct Auto 0.2 % (0.0-0.4); Lymphocytes Absolute Auto 0.8 X10*3/uL (1.2-4.9); Lymphocytes Percent Auto 15.7 % (20-40); Mean Corpuscular HGB Conc 32.1 g/dl (31.0-36.0); Mean Corpuscular Hemoglobin 29.2 pg (27.0-33.0); Mean Corpuscular Volume 90.9 fL (80.0-98.0); Mean Platelet Volume 10.7 fL (9.4-12.4); Monocytes Absolute Auto 0.3 X10*3/uL (0.1-1.2); Monocytes Percent Auto 5.1 % (2-11); Neutrophils Absolute Auto 3.8 x10*3/uL (2.0-8.3); Neutrophils Percent Auto 76.2 % (45-73); Platelet Count 145 X10*3/uL (160-400); Red Blood Count 2.98 X10*6/uL (4.60-5.80); Red Cell Distribution Width 15.4 % (11.0-16.0); White Blood Count 4.9 X10*3/uL (4.8-10.8)
[2024-11-11 14:03] LABS: B Type Natriuretic Peptide 2597 pg/mL (<100)
[2024-11-11 14:05] LABS: Alanine Aminotransferase 19 U/L (0-40); Albumin Level 2.8 g/dL (3.5-5.0); Alkaline Phosphatase 101 U/L (39-117); Anion Gap 12 (12-20); Aspartate Amino Transferase 22 U/L (5-37); Bilirubin Total 0.3 mg/dL (0.0-1.0); Blood Urea Nitrogen 75 mg/dL (9-16); Carbon Dioxide 20 mmol/L (22-29); Chloride 112 mmol/L (96-108); Creatinine Clr Calc Pharmacy 14.6; Estimated Glomerular Filt Rate 9; Glucose Random 96 mg/dL (60-115); Magnesium 1.8 mg/dL (1.6-2.6); Potassium 4.8 mmol/L (3.3-5.1); Sodium 139 mmol/L (135-145); Total Protein 5.9 g/dL (6.5-8.0)
[2024-11-11 14:11] LABS: Troponin-I High Sensitivity 308.4 ng/L (<3.5-35.0)
[2024-11-11 14:14] LABS: Influenza A PCR NEGATIVE (Negative); Influenza B PCR NEGATIVE (Negative); Resp Syncy Virus RNA Qual PCR NEGATIVE (Negative); SARS COV2 PCR INHOUSE NEGATIVE (Negative)
--- NOTE | 2024-11-11 15:04 | PM.CNNEP ---
History of Present Illness Reason for Consult Consult date: 11/11/24 Chief Complaint Chief complaint: Volume overload,MARII History of Present Illness Narrative: 59-year-old male with a past medical history significant for RACHEL on CPAP, HFrEF (echo 09/08 EF 45-50%), IDDM, retinopathy, HTN, mixed hyperlipidemia, advanced CKD. had recent hospitalization at [facility] 10/21-10/26 due to bilateral upper extremity and lower extremity edema with shortness of breath, orthopnea and dyspnea on exertion with 20lb weight gain x1 week, was treated for heart failure and discharged on high dose diuretics. he was seen in the outpatient nephrology office by Dr Castro and advised to go the the ED due to worsening exertional dyspnea, orthopnea and upper and lower extremity edema. urine protein/creatinine ratio 15 on 10/22 has advanced diabetic kidney disease patient seen at bedside in ED. He reports breathing is comfortable at rest, but he becomes very short of breath with exertion, reports this has been gradually worsening since his last hospitalization. He reports worsening fatigue as well. he denies chest pain, shortness of breath at rest, nausea, vomiting, diarrhea, urticaria, urinary symptoms. +dyspnea with exertion, +orthopnea, muscle cramping in left forearm, swelling in upper and lower extremities worsening. Review of Systems Constitutional: Reports fatigue and Reports weight gain Eyes: Reports change in vision (reports worsening vision over last few months. ) Cardiovascular: Denies chest pain, Reports leg edema, Denies dyspnea, Reports dyspnea on exertion and Reports orthopnea Respiratory: Denies dyspnea and Reports dyspnea on exertion Gastrointestinal: Denies abdominal pain, Denies constipation, Denies diarrhea, Denies nausea and Denies vomiting Genitourinary: Denies hematuria, Reports oliguria, Denies difficulty urinating, Denies dysuria and Denies flank pain Musculoskeletal: Reports muscle cramps Skin/Breast: Reports rash Denies tremor(s) Endocrine: Reports fatigue [facility] Past Medical History Medical History (Updated 11/11/24 @ 15:17 by Kat Jose DNP, COST CONTROL SUPERVISOR-BC) Hypertension Anemia of chronic disease Chronic kidney disease Congestive heart failure Chronic HFrEF (heart failure with reduced ejection fraction) Anemia RACHEL (obstructive sleep apnea) Heart failure Hypercholesterolemia Diabetes Family History Family History Mother Kidney disease Hypertension Father Hypertension Social History Social History Household Members: None Household Members Other:: grandson Housing: Apartment Do you presently have visiting nurse or other home services: No Alcohol intake: never Patient Tobacco Use Status: Former Tobacco user Tobacco use type: Cigarette Second Hand Smoke Exposure: No Advance Directives Date on File: 08/08/23 service: No Meds Allergies Allergy/AdvReac Type Severity Reaction Status Date / Time No Known Allergies Allergy Verified 11/11/24 13:06 Active Medications: Current Medications Bumetanide 25 mg/ IV (Miscellaneous Supplies) 100 mls @ 4 mls/hr IVCONT .Q24H SWETHA Home Medications ?Medication ?Instructions ?Recorded ?Confirmed ?Last Taken ?Type nifedipine 30 mg tablet,extended 90 mg PO DAILY 11/20/23 10/22/24 10/21/24 History release 24 hr sertraline 50 mg tablet 50 mg PO DAILY 10/02/24 10/22/24 10/21/24 History cholecalciferol (vitamin D3) 1,250 1,250 mcg PO QWEEK 11/04/24 Unknown History mcg (50,000 unit) capsule leflunomide 10 mg tablet 20 mg PO DAILY 11/04/24 Unknown History rosuvastatin 40 mg tablet 40 mg PO DAILY 11/04/24 Unknown History sulfasalazine 500 mg tablet 0.5 g PO DAILY 11/04/24 Unknown History Physical Exam Vital Signs: Last Vital Signs Temp 97.1 F 11/11/24 13:04 Pulse 66 11/11/24 13:04 Resp 18 11/11/24 13:04 BP 177/87 H 11/11/24 13:04 Pulse Ox 97 11/11/24 13:04 O2 Del Method Room Air 11/11/24 13:04 BMI result Body Mass Index 34.6 Const General: no acute distress, alert and awake Resp Effort & Inspection: normal respiratory effort and able to speak in complete sentences Auscultation: clear to auscultation bilaterally Cardio Rate: regular rate Rhythm: regular rhythm Heart sounds: S1 normal heart sound present and S2 normal heart sound present GI Palpation (GI): Soft to palpation and nontender General: Yes no CVA tenderness Back/Spine/Pelvis Back: no CVA tenderness Skin Rashes: no rashes Neuro Other: no tremor, no asterixis. Extrem General: Yes edema (BUE +3, BLE +3 pitting) Results Lab Results 11/11/24 13:30 11/11/24 13:30 Lab results: Chemistry 11/11/24 13:30 Sodium 139 Potassium 4.8 Carbon Dioxide 20 L BUN 75 H Creatinine 6.16 H* Calcium 8.0 L Hematology 11/11/24 13:30 WBC 4.9 Hgb 8.7 L Plt Count 145 L D Assessment and Plan (1) CKD stage 5 due to type 2 diabetes mellitus: Status: Acute (2) Edema: Qualifiers: Edema type: localized Qualified Code(s): R60.0 - Localized edema Status: Acute Plan Advanced kidney disease with worsening hypervolemia, dyspnea on exertion, orthopnea, weight gain Progression of chronic renal disease on differential cardiorenal syndrome amyloidosis also a possibility given patient's age rate of onset of progression of disease will get renal biopsy dale as inpatient, patient should have dose of 20mcg DDVAP prior to biopsy due to elevated urea level patient clinically hypervolemic, recommend initiating bumex drip No immediate indication for HD at this time recommend daily electrolyte and renal function studies recommend avoiding nephrotoxins recommend close blood pressure and I&O monitoring continue supportive care, will continue to follow Discussed with Dr Matthew Enamorado Date of Service Date of Service: 11/11/24
[2024-11-11 15:16] VITALS: BP 186/92; PULSE 66; RESP 14; TEMP 36.6; O2SAT 96
[2024-11-11] MEDS: Bumetanide 25 MG in Container,Empty 0 ML 4 MG IVCONT (15:59)
[2024-11-11 16:00] VITALS: BP 182/92; PULSE 66; RESP 18; O2SAT 99
[2024-11-11 16:28] LABS: Troponin-I High Sensitivity 287.7 ng/L (<3.5-35.0)
--- NOTE | 2024-11-11 17:55 | PM.IMHP ---
History of Present Illness Date of Service: 11/11/24 Chief Complaint: edema, dyspnea 59yo M with RACHEL on CPAP, HF with mildly reduced EF, DM2, HTN, HLD, and CKD5 with nephrotic-range proteinuria likely due to diabetic nephropathy sent in by his machine tool electrician, Dr Wily Mims, for worsening renal function in the setting of peripheral edema of the legs and hands along with orthopnea and generalized weakness. He notes metallic taste in his mouth. Last admitted here 10/21-10/26/24 for CHF exacerbation/volume overload requiring furosemide drip. Creatinine is now above 6 and BUN 75-90. He is being admitted for bumetanide infusion and renal biopsy. He denies chest pain, fever, or cough. Review of Systems Review of Systems: Yes all other systems are reviewed and are negative [facility] Medical History Hypertension Anemia of chronic disease Chronic kidney disease Congestive heart failure Chronic HFrEF (heart failure with reduced ejection fraction) Anemia RACHEL (obstructive sleep apnea) Heart failure Hypercholesterolemia Diabetes Family History Mother Kidney disease Hypertension Father Hypertension Social History Household Members: None Household Members Other:: grandson Housing: Apartment Do you presently have visiting nurse or other home services: No Alcohol intake: never Patient Tobacco Use Status: Former Tobacco user Tobacco use type: Cigarette Second Hand Smoke Exposure: No Advance Directives Date on File: 08/08/23 service: No Meds Allergies Allergy/AdvReac Type Severity Reaction Status Date / Time No Known Allergies Allergy Verified 11/11/24 13:06 Active Medications: Current Medications Acetaminophen (Acetaminophen 325 Mg Tablet) 650 mg PO Q6H PRN PRN Reason: Pain, Mild 1-3,fever,headache Calcium Carbonate (Calcium Carbonate 750 Mg Tab.Chew) 750 mg PO Q4H PRN PRN Reason: Heartburn Dextrose (Dextrose 50 % 25 Gm/50 Ml Syringe) 25 gm IVPUSH Q15M PRN; Protocol PRN Reason: per Hypoglycemia Standing Ord. Glucose (Glucose Gel 15 Gm Gel..Gram.) 15 gm PO Q15M PRN; Protocol PRN Reason: per Hypoglycemia Standing Ord. Bumetanide 25 mg/ IV (Miscellaneous Supplies) 100 mls @ 4 mls/hr IVCONT .Q24H [facility] Last Admin: 11/11/24 15:59 Dose: 1 mg/hr, 4 mls/hr Insulin Human Lispro (Insulin Lispro 100 Unit/Ml 3 Ml Vial) 0 unit SUBCUT QIDACHS [facility]; Protocol Magnesium Hydroxide (Milk Of Magnesia 30 Ml Oral.Susp) 30 ml PO DAILY PRN PRN Reason: Constipation Melatonin (Melatonin 3 Mg Tablet) 6 mg PO BEDTIME PRN PRN Reason: Insomnia Ondansetron HCl (Ondansetron Hcl 4 Mg/2 Ml Vial) 4 mg IVPUSH Q8H PRN PRN Reason: Nausea and Vomiting Sodium Chloride (0.9 % Sodium Chloride Flush 3 Ml Syringe) 3 [facility] Home Medications ?Medication ?Instructions ?Recorded ?Confirmed ?Last Taken ?Type sertraline 50 mg tablet 50 mg PO DAILY 10/02/24 11/11/24 10/21/24 History cholecalciferol (vitamin D3) 1,250 1,250 mcg PO QWEEK 11/04/24 11/11/24 Unknown History mcg (50,000 unit) capsule rosuvastatin 40 mg tablet 40 mg PO DAILY 11/04/24 11/11/24 Unknown History aripiprazole 2 mg tablet (Abilify) 2 mg PO DAILY 11/11/24 11/11/24 Unknown History atorvastatin 80 mg tablet 80 mg PO BEDTIME 11/11/24 11/11/24 Unknown History bupropion HCl 150 mg 24 hr tablet, 150 mg PO DAILY 11/11/24 11/11/24 Unknown History extended release (Wellbutrin XL) calcitriol 0.25 mcg capsule 0.25 mcg PO DAILY 11/11/24 11/11/24 Unknown History clonidine HCl 0.1 mg tablet 0.1 mg PO BID 11/11/24 11/11/24 Unknown History dapagliflozin propanediol 5 mg 5 mg PO DAILY 11/11/24 11/11/24 Unknown History tablet (Farxiga) hydralazine 10 mg tablet 20 mg PO BID 11/11/24 11/11/24 Unknown History mirtazapine 15 mg tablet 15 mg PO BEDTIME 11/11/24 11/11/24 Unknown History sevelamer carbonate 800 mg tablet 800 mg PO TIDWM 11/11/24 11/11/24 Unknown History sodium bicarbonate 650 mg tablet 1,300 mg PO BID 11/11/24 11/11/24 Unknown History spironolactone 25 mg tablet 25 mg PO DAILY 11/11/24 11/11/24 Unknown History trazodone 50 mg tablet 50 mg PO BEDTIME 11/11/24 11/11/24 Unknown History zolpidem 10 mg tablet 10 mg PO BEDTIME 11/11/24 11/11/24 Unknown History Physical Exam Vital Signs and Narrative: Vital Signs: Last Vital Signs Temp 98 F 11/11/24 15:16 Pulse 66 11/11/24 16:00 Resp 18 11/11/24 16:00 BP 182/92 H 11/11/24 16:00 Pulse Ox 99 11/11/24 16:00 O2 Del Method Room Air 11/11/24 16:00 BMI result Body Mass Index 34.6 Gen: in no acute distress HEENT: sclera anicteric, moist mucus membranes Neck: supple Lungs: clear to auscultation bilaterally Heart: regular rate and rhythm, no murmurs Abd: soft, non-tender, non-distended Ext: 2+ edema of legs bilaterally, also edematous hands Skin: warm/well-perfused Neuro: alert and oriented x3, no focal findings Psych: appropriate affect Extrem: General: Yes no pedal edema Results Labs 11/12/24 05:25 11/12/24 05:25 Labs: Laboratory Results - last 24 hr 11/11/24 13:30 MCV 90.9 MCH 29.2 MCHC 32.1 RDW 15.4 Plt Count 145 L D MPV 10.7 Immature Gran % (Auto) 0.2 Neut % (Auto) 76.2 H Lymph % (Auto) 15.7 L Collin % (Auto) 5.1 Eos % (Auto) 2.6 Baso % (Auto) 0.2 Lymph # (Auto) 0.8 L Collin # (Auto) 0.3 Eos # (Auto) 0.1 Baso # (Auto) 0.0 Abs Immat Gran (auto) 0.01 Absolute Neuts (auto) 3.8 Absolute Nucleated RBC 0.000 Nucleated RBC % (auto) 0.0 Anion Gap 12 Estim Creat Clear Calc 14.6 Estimated GFR 9 Random Glucose 96 Calcium 8.0 L Magnesium 1.8 Total Bilirubin 0.3 AST 22 ALT 19 Alkaline Phosphatase 101 B-Natriuretic Peptide 2597 H Total Protein 5.9 L Albumin 2.8 L Influenza Type A (PCR) NEGATIVE Influenza Type B (PCR) NEGATIVE RSV RNA Qual (PCR) NEGATIVE SARS-CoV-2 RNA (RT-PCR) NEGATIVE Imaging Radiologist's Impressions: Impressions Chest X-Ray 11/11/24 13:08 IMPRESSION: No active pulmonary disease. Electronically signed by: Prosper Ward MD 11/11/2024 01:30 PM EDT RP Assessment and Plan (1) Acute kidney injury superimposed on CKD: Status: Acute Plan 59yo M with RACHEL on CPAP, HF with mildly reduced EF, DM2, HTN, HLD, and CKD5 with nephrotic-range proteinuria likely due to diabetic nephropathy sent in by his machine tool electrician, Dr Wily Mims, for worsening renal function in the setting of peripheral edema of the legs and hands along with orthopnea and generalized weakness. Last admitted here 10/21-10/26/24 for CHF exacerbation/volume overload. hypervolemia MARII/CKD5 acute-chronic HF with mildly reduced EF - admit to telemetry, start bumetanide drip 1 mg/hr, monitor BNP/BMP/Mg + wts/I+O, consult Nephrology + Cardiology - renal doppler to assess for TAMMY - CT-guided renal biopsy - continue sevelamer, calcitriol, sodium bicarbonate, Kayexelate - continue carvedilol, nifedipine, spironolactone troponin indeterminate - flat, likely due to CHF HLD - continue statin mood disorder - continue aripiprazole, bupropin, clonidine, mirtazapine, sertraline DM2 - correction-dose lispro RA - continue leflunomide, sulfasalazine VTE ppx - SCDs, hold heparin for renal biopsy dispo - eventual home with VNA code status - full I anticipate that the patient will stay at least 2 midnights as an inpatient in the hospital due to the above reasons. It is neither reasonable nor safe to care for them in a less acute setting. Quality Stroke Does the patient have a stroke diagnosis?: No VTE Prior VTE?: No VTE Risk Level:: Medical - moderate - high VTE Device Contraindication: N/A - Device Ordered VTE Drug Contraindication: Treatment Not Indicated
[2024-11-11 18:08] VITALS: BP 173/82; PULSE 68; RESP 12; TEMP 36.4; O2SAT 99
[2024-11-11 18:20] LABS: Appearance Urine Clear; Color Urine Yellow; Glucose Urine UA 250 mg/dL (Negative); Leukocyte Esterase Urine Negative (Negative); Nitrite Urine Negative (Negative); UMIC TRIGGER UACC YES; Urine Blood Trace (Negative); Urine Ketones Trace mg/dL (Negative); Urine Protein >=1000 (4+) mg/dL (Neg-Trace)
[2024-11-11 18:59] LABS: Bacteria Urine None Seen (None Seen); Squamous Epithelial Cell Urine 0-2 /HPF (0-2); WBC Urine 0-5 /HPF (0-5)
--- NOTE | 2024-11-11 19:36 | PHA.MEDREC ---
Addendum entered by Elen Pardo [facility] 11/11/24 19:58: Reviewed by [facility] Addendum entered by Susan Callahan 11/11/24 19:53: Pt not sure the last time he took his Vitamin D3 50,000 unit tablet. Original Note: Pharmacy Consult ? Medication Reconciliation Pharmacy has completed the medication reconciliation. Spoke with patient and pt was able to confirm some of his medications but was a poor historian about how he takes his medications and states he has a nurse (Jayesh Gaitan) who helps him with all his meds. Pt also just admitted 10/21-10/26 and confirmed he stopped taking the Furosemide and Insulin and was started on Hydralazine 50mg TID. Patient was also just here 11/04 for a Nephrology apt and confirmed he started the new medications (Sodium polystyrene sulfonate and Toresemide) from that visit and confirmed the changes to his Hydralazine medication and states he is now taking 20mg BID; I called [facility] to confirm if the pt did start the new meds, they stated the bumetanide and Torsemide require a PA but the pt picked up the sodium polystyrene sulfonate 11/06. Pt got Bumetanide 10mg tabs new 10/26 and Pt called his nurse who stated he would send a list to the pt phone; I went back a bit later to see if the nurse had sent it and the nurse had not at this time. I called [facility] about the Tramadol; I utilized claims to confirm the rest of the med rec.
[2024-11-11 20:52] LABS: Glucose, Whole Blood 142 mg/dL (60-115)
--- NOTE | 2024-11-11 23:30 | PC.NURSE ---
Assumed care of this Pt at 2300.
[2024-11-11 23:54] VITALS: PULSE 72; RESP 17; TEMP 36.6; O2SAT 98
[2024-11-12] VITALS (16 sets, daily range): BP systolic 125–218; BP diastolic 56–124; PULSE 65–78; RESP 14–18; TEMP 36.2–36.5; O2SAT 94–97; BMI 35.1
[2024-11-12] MEDS: cloNIDine HCL 0.1 MG TABLET PO ×2 (00:47→12:52)
--- NOTE | 2024-11-12 01:00 | PC.NURSE ---
Pt A&Ox3, denies any pain. Systolic BP noted to be over 200s, provider made aware. New order given per AUG.
[2024-11-12] MEDS: Labetalol HCL 100 MG/20 ML VIAL 10 MG IVPUSH (03:00)
[2024-11-12] MEDS: amLODIPine Besylate 2.5 MG TABLET 7.5 MG PO (04:13)
[2024-11-12] MEDS: hydrALAZINE HCl 50 MG TABLET PO (05:30)
[2024-11-12 05:48] LABS: Hematocrit 26.2 % (42.0-52.0); Hemoglobin 8.6 g/dl (14.0-18.0); Mean Corpuscular HGB Conc 32.8 g/dl (31.0-36.0); Mean Corpuscular Hemoglobin 29.6 pg (27.0-33.0); Platelet Count 134 X10*3/uL (160-400); Prothrombin Time 11.3 SEC (10.9-12.4); Red Blood Count 2.91 X10*6/uL (4.60-5.80); Red Cell Distribution Width 15.1 % (11.0-16.0)
[2024-11-12 06:08] LABS: Anion Gap 13 (12-20); Blood Urea Nitrogen 78 mg/dL (9-16); Calcium 8.1 mg/dL (8.4-10.2); Carbon Dioxide 19 mmol/L (22-29); Chloride 113 mmol/L (96-108); Estimated Glomerular Filt Rate 10; Magnesium 1.8 mg/dL (1.6-2.6); Potassium 4.3 mmol/L (3.3-5.1); Sodium 141 mmol/L (135-145)
[2024-11-12 06:11] LABS: Glucose Random 55 mg/dL (60-115)
[2024-11-12] MEDS: Glucose Gel 15 GM GEL..GRAM. PO (06:12)
[2024-11-12 06:14] LABS: B Type Natriuretic Peptide 2678 pg/mL (<100)
--- NOTE | 2024-11-12 06:18 | PC.NURSE ---
Blood glucose 55, Pt given PO glucose gel per MAR with PO juice and crackers.
[2024-11-12 06:38] LABS: Glucose, Whole Blood 105 mg/dL (60-115)
[2024-11-12 06:50] LABS: Glucose, Whole Blood 115 mg/dL (60-115)
[2024-11-12 07:07] LABS: Glucose, Whole Blood 127 mg/dL (60-115)
[2024-11-12] MEDS: 0.9 % Sodium Chloride Flush 3 ML SYRINGE IVFLUSH ×2 (07:25→16:26)
[2024-11-12] MEDS: Sevelamer Carbonate Tablet 800 MG TABLET PO ×3 (07:26→18:39)
--- NOTE | 2024-11-12 08:48 | MHC.CM.PN ---
Patient lives alone in a house and is active with [facility] & home CPAP. Home/resume said services is the goal and CM has initiated and will follow for dc planning. HCP is Daughter/Geno and PCP is Dr. Chris Boucher. Patient will arrange his own transportation at time of dc.
--- NOTE | 2024-11-12 10:46 | P.CONCA_ITS ---
History of Present Illness History of Present Illness Date of Service: 11/12/24 Requesting physician: Maria Fernanda Swenson Consult reason: congestive heart failure Chief complaint: Volume overload,MARII Narrative: I was consulted to see Bella in cardiology consultation today for generalized anasarca related to fluid overload. On admission noted to have significantly elevated BNP in the mid 2000 range. Patient has prior history of heart failure with mid-range LV EF of 45-50% with moderate LVH. He in the past he has had severe left ventricular hypertrophy. This is suspected to be related to hypertensive cardiomyopathy and also possibly underlying sleep apnea. However over the last admission patient was admitted few months ago with progressive heart failure syndrome and anasarca. Diurese it subsequently released home. He has had significant progression in his kidney disease with significant proteinuria. Suspicion for diabetes nephropathy although infiltrative disorder can be also present. Rapidly progressive kidney disease as well as heart failure syndrome raises possibility of amyloidosis. Patient is currently not having any significant shortness of breath at rest currently. Outpatient at home has significant shortness of breath minimal exertion. Also reported orthopnea although patient denies orthopnea currently. Patient has also had significant weight gain overall. He said his problems started after a fall few months ago and then has had rapidly progressive course for now. Patient is admitted for IV Bumex drip for which she is responding well at this point in time. He denies any chest pain, palpitations, lightheadedness, syncope. Can continue with current antihypertensive regimen including hydralazine, carvedilol as well as nifedipine. Consider holding spironolactone given worsening renal function although his potassium level appears to be controlled. Can also add Isordil as a vasodilators therapy and also to treat blood pressure. Overall prognosis is guarded. Continue strict intake and output chart and continue monitor renal function electrolytes closely and replace as need be. Will continue to follow with you Review of Systems 2 Constitutional: Constitutional: Reports fatigue Eyes: Eyes: Reports no additional eye complaints Cardiovascular: Cardiovascular: Denies chest pain, Reports edema, Reports leg edema, Denies lightheadedness, Denies Loss of Consciousness, Denies palpitations, Reports dyspnea on exertion and Reports orthopnea Respiratory: Respiratory: Reports no additional respiratory complaints and Reports dyspnea on exertion Gastrointestinal: Gastrointestinal: Reports no additional gastrointestinal complaints Genitourinary: Genitourinary: Reports no additional male genitourinary complaints Musculoskeletal: Musculoskeletal: Reports arthralgias Integumentary/Breasts: Skin/Breast: Reports system reviewed and no additional complaints, except as docu Neurologic: Reports system reviewed and no additional complaints, except as documented Psychiatric: Psychiatric: Reports no additional psychiatric complaints Endocrine: Endocrine: Reports no additional endocrine complaints, Reports fatigue and Denies palpitations PMFSH Past Medical History Medical History Hypertension Anemia of chronic disease Chronic kidney disease Congestive heart failure Chronic HFrEF (heart failure with reduced ejection fraction) Anemia RACHEL (obstructive sleep apnea) Heart failure Hypercholesterolemia Diabetes Family History Family History Mother Kidney disease Hypertension Father Hypertension Social History Social History Household Members: None Household Members Other:: grandson Housing: Apartment Do you presently have visiting nurse or other home services: No Alcohol intake: never Patient Tobacco Use Status: Former Tobacco user Tobacco use type: Cigarette Second Hand Smoke Exposure: No Advance Directives Date on File: 08/08/23 service: No Meds Allergies Allergy/AdvReac Type Severity Reaction Status Date / Time No Known Allergies Allergy Verified 11/11/24 13:06 Active Medications: Current Medications Acetaminophen (Acetaminophen 325 Mg Tablet) 650 mg PO Q6H PRN PRN Reason: Pain, Mild 1-3,fever,headache Aripiprazole (Aripiprazole 2 Mg Tablet) 2 mg PO DAILY [facility] Atorvastatin Calcium (Atorvastatin Calcium 80 Mg Tablet) 80 mg PO DAILY [facility] Bupropion HCl (Bupropion Hcl Xl 150 Mg Tab.Er.24h) 150 mg PO DAILY [facility] Calcitriol (Calcitriol 0.25 Mcg Capsule) 0.25 mcg PO DAILY [facility] Calcium Carbonate (Calcium Carbonate 750 Mg Tab.Chew) 750 mg PO Q4H PRN PRN Reason: Heartburn Carvedilol (Carvedilol 25 Mg Tablet) 25 mg PO BID [facility]; Protocol Clonidine HCl (Clonidine Hcl 0.1 Mg Tablet) 0.1 mg PO BID [facility]; Protocol Last Admin: 11/12/24 00:47 Dose: 0.1 mg Dextrose (Dextrose 50 % 25 Gm/50 Ml Syringe) 25 gm IVPUSH Q15M PRN; Protocol PRN Reason: per Hypoglycemia Standing Ord. Glucose (Glucose Gel 15 Gm Gel..Gram.) 15 gm PO Q15M PRN; Protocol PRN Reason: per Hypoglycemia Standing Ord. Last Admin: 11/12/24 06:12 Dose: 15 gm Hydralazine HCl (Hydralazine Hcl 50 Mg Tablet) 100 mg PO TID [facility]; Protocol Bumetanide 25 mg/ IV (Miscellaneous Supplies) 100 mls @ 4 mls/hr IVCONT .Q24H [facility] Last Admin: 11/11/24 15:59 Dose: 1 mg/hr, 4 mls/hr Insulin Human Lispro (Insulin Lispro 100 Unit/Ml 3 Ml Vial) 0 unit SUBCUT QIDACHS [facility]; Protocol Last Admin: 11/12/24 07:07 Dose: Not Given Labetalol HCl (Labetalol Hcl 100 Mg/20 Ml Vial) 10 mg IVPUSH Q4H PRN PRN Reason: BP > 170 Last Admin: 11/12/24 03:00 Dose: 10 mg Magnesium Hydroxide (Milk Of Magnesia 30 Ml Oral.Susp) 30 ml PO DAILY PRN PRN Reason: Constipation Melatonin (Melatonin 3 Mg Tablet) 6 mg PO BEDTIME PRN PRN Reason: Insomnia Mirtazapine (Mirtazapine 15 Mg Tablet) 15 mg PO BEDTIME [facility] Nifedipine (Nifedipine Er 30 Mg Tab.Er.24) 30 mg PO DAILY [facility]; Protocol Non-Formulary Medication (Cholecalciferol (Vitamin D3)) 1,250 mcg PO .QWEEK [facility] Non-Formulary Medication (Sodium Polystyrene Sulfonate) 30 gm PO DAILY [facility] Ondansetron HCl (Ondansetron Hcl 4 Mg/2 Ml Vial) 4 mg IVPUSH Q8H PRN PRN Reason: Nausea and Vomiting Sertraline HCl (Sertraline Hcl 50 Mg Tablet) 50 mg PO DAILY [facility] Sevelamer Carbonate (Sevelamer Carbonate Tablet 800 Mg Tablet) 800 mg PO TIDWM [facility] Last Admin: 11/12/24 07:26 Dose: 800 mg Sodium Bicarbonate (Sodium Bicarbonate 650 Mg Tablet) 1,300 mg PO BID [facility] Sodium Chloride (0.9 % Sodium Chloride Flush 3 Ml Syringe) 3 ml IVFLUSH QSHIFT [facility] Last Admin: 11/12/24 07:25 Dose: 3 ml Spironolactone (Spironolactone 25 Mg Tablet) 25 mg PO DAILY [facility]; Protocol Trazodone HCl (Trazodone Hcl 50 Mg Tablet) 50 mg PO BEDTIME SWETHA Home Medications ?Medication ?Instructions ?Recorded ?Confirmed ?Last Taken ?Type sertraline 50 mg tablet 50 mg PO DAILY 10/02/24 11/11/24 10/21/24 History cholecalciferol (vitamin D3) 1,250 1,250 mcg PO QWEEK 11/04/24 11/11/24 Unknown History mcg (50,000 unit) capsule rosuvastatin 40 mg tablet 40 mg PO DAILY 11/04/24 11/11/24 Unknown History aripiprazole 2 mg tablet (Abilify) 2 mg PO DAILY 11/11/24 11/11/24 Unknown History atorvastatin 80 mg tablet 80 mg PO BEDTIME 11/11/24 11/11/24 Unknown History bupropion HCl 150 mg 24 hr tablet, 150 mg PO DAILY 11/11/24 11/11/24 Unknown History extended release (Wellbutrin XL) calcitriol 0.25 mcg capsule 0.25 mcg PO DAILY 11/11/24 11/11/24 Unknown History clonidine HCl 0.1 mg tablet 0.1 mg PO BID 11/11/24 11/11/24 Unknown History dapagliflozin propanediol 5 mg 5 mg PO DAILY 11/11/24 11/11/24 Unknown History tablet (Farxiga) hydralazine 10 mg tablet 20 mg PO BID 11/11/24 11/11/24 Unknown History mirtazapine 15 mg tablet 15 mg PO BEDTIME 11/11/24 11/11/24 Unknown History sevelamer carbonate 800 mg tablet 800 mg PO TIDWM 11/11/24 11/11/24 Unknown History sodium bicarbonate 650 mg tablet 1,300 mg PO BID 11/11/24 11/11/24 Unknown History spironolactone 25 mg tablet 25 mg PO DAILY 11/11/24 11/11/24 Unknown History trazodone 50 mg tablet 50 mg PO BEDTIME 11/11/24 11/11/24 Unknown History zolpidem 10 mg tablet 10 mg PO BEDTIME 11/11/24 11/11/24 Unknown History Physical Exam 2 Vital Signs: Vital Signs: Last Vital Signs Temp 97.1 F 11/12/24 08:00 Pulse 76 11/12/24 08:00 Resp 18 11/12/24 08:00 BP 144/65 H 11/12/24 08:00 Pulse Ox 97 11/12/24 08:00 O2 Del Method Room Air 11/12/24 08:00 BMI result Body Mass Index 35.1 Const: General: cooperative, comfortable, no acute distress, alert and awake Nutritional Appearance: obese Orientation/consciousness: patient oriented x3 HEENT: Head: Yes normocephalic and Yes atraumatic Neck: Neck: Yes trachea midline, Yes supple and Yes JVD Resp: Effort & Inspection: normal respiratory effort Auscultation: clear to auscultation bilaterally Cardio: Jugular venous distension: JVD Rate: regular rate Rhythm: r egular rhythm Heart sounds: S1 normal heart sound present, S2 normal heart sound present, no click, no gallops and no murmurs GI: Auscultation: normal bowel sounds Skin: General skin exam: no rashes or lesions noted Neuro: General: patient oriented x3 and no focal motor deficits Extrem: General: No clubbing, No cyanosis and Yes edema Psych: Appearance: grossly normal Objective Labs and Meds 11/12/24 05:25 11/12/24 05:25 Lab results: Laboratory Results - last 24 hr 11/11/24 11/11/24 11/11/24 13:30 15:42 18:05 WBC 4.9 RBC 2.98 L Hgb 8.7 L Hct 27.1 L MCV 90.9 MCH 29.2 MCHC 32.1 RDW 15.4 Plt Count 145 L D MPV 10.7 Immature Gran % (Auto) 0.2 Neut % (Auto) 76.2 H Lymph % (Auto) 15.7 L [place] % (Auto) 5.1 Eos % (Auto) 2.6 Baso % (Auto) 0.2 Lymph # (Auto) 0.8 L [place] # (Auto) 0.3 Eos # (Auto) 0.1 Baso # (Auto) 0.0 Abs Immat Gran (auto) 0.01 Absolute Neuts (auto) 3.8 Absolute Nucleated RBC 0.000 Nucleated RBC % (auto) 0.0 PT INR Sodium 139 Potassium 4.8 Chloride 112 H Carbon Dioxide 20 L Anion Gap 12 BUN 75 H Creatinine 6.16 H* Estim Creat Clear Calc 14.6 Estimated GFR 9 POC Glucose Random Glucose 96 Calcium 8.0 L Magnesium 1.8 Total Bilirubin 0.3 AST 22 ALT 19 Alkaline Phosphatase 101 Troponin I High Sens 308.4 H* D 287.7 H* B-Natriuretic Peptide 2597 H Total Protein 5.9 L Albumin 2.8 L Urine Color Yellow Urine Appearance Clear Urine pH 7.0 Ur Specific [place] 1.020 Urine Protein >=1000 (4+) H Urine Glucose (UA) 250 H Urine Ketones Trace Urine Blood Trace H Urine Nitrite Negative Ur Leukocyte Esterase Negative Urine RBC 6-10 H Urine WBC 0-5 Ur Squamous Epith Cells 0-2 Urine Bacteria None Seen Hyaline Casts 3-5 Influenza Type A (PCR) NEGATIVE Influenza Type B (PCR) NEGATIVE RSV RNA Qual (PCR) NEGATIVE SARS-CoV-2 RNA (RT-PCR) NEGATIVE 11/11/24 11/12/24 11/12/24 20:48 05:25 06:34 WBC 4.0 L RBC 2.91 L Hgb 8.6 L Hct 26.2 L MCV 90.0 MCH 29.6 MCHC 32.8 RDW 15.1 Plt Count 134 L MPV 11.0 Immature Gran % (Auto) Neut % (Auto) Lymph % (Auto) [place] % (Auto) Eos % (Auto) Baso % (Auto) Lymph # (Auto) [place] # (Auto) Eos # (Auto) Baso # (Auto) Abs Immat Gran (auto) Absolute Neuts (auto) Absolute Nucleated RBC 0.000 Nucleated RBC % (auto) 0.0 PT 11.3 INR 1.0 Sodium 141 Potassium 4.3 Chloride 113 H Carbon Dioxide 19 L Anion Gap 13 BUN 78 H Creatinine 6.00 H* Estim Creat Clear Calc 15.0 Estimated GFR 10 POC Glucose 142 H 105 Random Glucose 55 L* Calcium 8.1 L Magnesium 1.8 Total Bilirubin AST ALT Alkaline Phosphatase Troponin I High Sens B-Natriuretic Peptide 2678 H Total Protein Albumin Urine Color Urine Appearance Urine pH Ur Specific [place] Urine Protein Urine Glucose (UA) Urine Ketones Urine Blood Urine Nitrite Ur Leukocyte Esterase Urine RBC Urine WBC Ur Squamous Epith Cells Urine Bacteria Hyaline Casts Influenza Type A (PCR) Influenza Type B (PCR) RSV RNA Qual (PCR) SARS-CoV-2 RNA (RT-PCR) 11/12/24 11/12/24 06:47 07:04 WBC RBC Hgb Hct MCV MCH MCHC RDW Plt Count MPV Immature Gran % (Auto) Neut % (Auto) Lymph % (Auto) [place] % (Auto) Eos % (Auto) Baso % (Auto) Lymph # (Auto) [place] # (Auto) Eos # (Auto) Baso # (Auto) Abs Immat Gran (auto) Absolute Neuts (auto) Absolute Nucleated RBC Nucleated RBC % (auto) PT INR Sodium Potassium Chloride Carbon Dioxide Anion Gap BUN Creatinine Estim Creat Clear Calc Estimated GFR POC Glucose 115 127 H Random Glucose Calcium Magnesium Total Bilirubin AST ALT Alkaline Phosphatase Troponin I High Sens B-Natriuretic Peptide Total Protein Albumin Urine Color Urine Appearance Urine pH Ur Specific [place] Urine Protein Urine Glucose (UA) Urine Ketones Urine Blood Urine Nitrite Ur Leukocyte Esterase Urine RBC Urine WBC Ur Squamous Epith Cells Urine Bacteria Hyaline Casts Influenza Type A (PCR) Influenza Type B (PCR) RSV RNA Qual (PCR) SARS-CoV-2 RNA (RT-PCR) Imaging Radiologist's impression: Impressions Chest X-Ray 11/11/24 13:08 IMPRESSION: No active pulmonary disease. Electronically signed by: Prosper Ward MD 11/11/2024 01:30 PM EDT RP Assessment and Plan (1) Acute heart failure: Status: Acute Acute heart failure in this middle-aged man with known prior significant increase LV wall thickness with mid-range LV ejection fraction with rapidly progressive kidney disease with significant fluid overload with predominantly right heart failure finding. Patient current point he is diuresing well with Bumex drip. Given his increased wall thickness of the LV as well as rapidly progressive kidney disease, infiltrative disorder is possible. I agree with renal biopsy to assess for presence of amyloidosis. Can also do blood test to evaluate for light chain amyloidosis. I would also repeat echocardiogram at this point to assess any progressive dysfunction of LV systolic function and to evaluate for right atrial filling pressures. Procedures Date of Service Date of Service: 11/12/24
[2024-11-12 11:03] LABS: Glucose, Whole Blood 181 mg/dL (60-115)
--- NOTE | 2024-11-12 12:00 | PM.PNNEP ---
Subjective Subjective Date of Service: 11/12/24 Interval history: 59-year-old male with advanced CKD, DMII, HFrEF presented 11/11 with significant upper and lower extremity edema, exertional dyspnea/orthopnea and 20lb weight gain Nephrology following for management of advanced renal disease creatinine 6.00 11/12, down from 11/30 11/11, has been on bumex drip at 1mg/hr patient reports he is feeling significantly better today still has significant swelling in hands and legs/feet, reports it feels improved from yesterday reports his breathing is comfortable (though has not been exerting himself) he denies chest pain, shortness of breath at rest, nausea, vomiting, diarrhea, urticaria, urinary symptoms. Physical Exam Vital Signs: Vital Signs: Last Vital Signs Temp 97.6 F 11/12/24 12:49 Pulse 72 11/12/24 12:49 Resp 16 11/12/24 12:49 BP 161/89 H 11/12/24 12:49 Pulse Ox 97 11/12/24 12:49 O2 Del Method Room Air 11/12/24 12:49 BMI result Body Mass Index 35.1 Const: General: no acute distress, alert and awake Resp: Effort & Inspection: normal respiratory effort and able to speak in complete sentences Auscultation: clear to auscultation bilaterally Cardio: Rate: regular rate Rhythm: regular rhythm Heart sounds: S1 normal heart sound present and S2 normal heart sound present GI: Palpation (GI): Soft to palpation and nontender : General: Yes no CVA tenderness Back/Spine/Pelvis: Back: no CVA tenderness Skin: Rashes: no rashes Neuro: Other: no tremor, no asterixis. Extrem: General: Yes edema (BUE +2, BLE +2 pitting) Objective Data Labs 11/12/24 05:25 11/12/24 05:25 Labs: Laboratory Results - last 24 hr 11/11/24 11/11/24 11/11/24 15:42 18:05 20:48 WBC RBC Hgb Hct MCV MCH MCHC RDW Plt Count MPV Absolute Nucleated RBC Nucleated RBC % (auto) PT INR Sodium Potassium Chloride Carbon Dioxide Anion Gap BUN Creatinine Estim Creat Clear Calc Estimated GFR POC Glucose 142 H Random Glucose Calcium Magnesium Troponin I High Sens 287.7 H* B-Natriuretic Peptide Urine Color Yellow Urine Appearance Clear Urine pH 7.0 Ur Specific [place] 1.020 Urine Protein >=1000 (4+) H Urine Glucose (UA) 250 H Urine Ketones Trace Urine Blood Trace H Urine Nitrite Negative Ur Leukocyte Esterase Negative Urine RBC 6-10 H Urine WBC 0-5 Ur Squamous Epith Cells 0-2 Urine Bacteria None Seen Hyaline Casts 3-5 11/12/24 11/12/24 11/12/24 05:25 06:34 06:47 WBC 4.0 L RBC 2.91 L Hgb 8.6 L Hct 26.2 L MCV 90.0 MCH 29.6 MCHC 32.8 RDW 15.1 Plt Count 134 L MPV 11.0 Absolute Nucleated RBC 0.000 Nucleated RBC % (auto) 0.0 PT 11.3 INR 1.0 Sodium 141 Potassium 4.3 Chloride 113 H Carbon Dioxide 19 L Anion Gap 13 BUN 78 H Creatinine 6.00 H* Estim Creat Clear Calc 15.0 Estimated GFR 10 POC Glucose 105 115 Random Glucose 55 L* Calcium 8.1 L Magnesium 1.8 Troponin I High Sens B-Natriuretic Peptide 2678 H Urine Color Urine Appearance Urine pH Ur Specific [place] Urine Protein Urine Glucose (UA) Urine Ketones Urine Blood Urine Nitrite Ur Leukocyte Esterase Urine RBC Urine WBC Ur Squamous Epith Cells Urine Bacteria Hyaline Casts 11/12/24 11/12/24 07:04 10:48 WBC RBC Hgb Hct MCV MCH MCHC RDW Plt Count MPV Absolute Nucleated RBC Nucleated RBC % (auto) PT INR Sodium Potassium Chloride Carbon Dioxide Anion Gap BUN Creatinine Estim Creat Clear Calc Estimated GFR POC Glucose 127 H 181 H Random Glucose Calcium Magnesium Troponin I High Sens B-Natriuretic Peptide Urine Color Urine Appearance Urine pH Ur Specific [place] Urine Protein Urine Glucose (UA) Urine Ketones Urine Blood Urine Nitrite Ur Leukocyte Esterase Urine RBC Urine WBC Ur Squamous Epith Cells Urine Bacteria Hyaline Casts Procedures Date of Service Date of Service: 11/12/24 Assessment & Plan Assessment and plan (1) Chronic kidney disease: Status: Inactive (2) Anemia of chronic disease: Status: Inactive (3) Hypertension: Status: Acute (4) Edema: Status: Acute Plan Advanced kidney disease with worsening hypervolemia, dyspnea on exertion, orthopnea, weight gain Progression of chronic renal disease on differential cardiorenal syndrome amyloidosis also a possibility given patient's age rate of onset of progression of disease will get renal biopsy [facility] as inpatient, patient should have dose of 20mcg DDAVP prior to biopsy- has increased bleeding risk with advanced renal disease patient remains clinically hypervolemic, recommend continuing bumex drip No immediate indication for HD at this time initiated discussions regarding PD as outpatient- patient states he feels he has significant family support with spouse and adult children and has stable housing. He would like to consider PD if needed. blood pressures suboptimally controlled- increased clonidine to 0.2mg PO BID recommend daily electrolyte and renal function studies recommend avoiding nephrotoxins recommend close blood pressure and I&O monitoring continue supportive care, will continue to follow Discussed with Dr Castro Time Spent With Patient Time: Total time managing care of this patient today ____ minutes.
[2024-11-12] MEDS: ARIPiprazole 2 MG TABLET PO (12:51)
[2024-11-12] MEDS: Atorvastatin Calcium 80 MG TABLET PO (12:51)
[2024-11-12] MEDS: Sodium Bicarbonate 650 MG TABLET 1300 MG PO ×2 (12:52→19:47)
[2024-11-12] MEDS: Torsemide 20 MG TABLET 40 MG PO (12:52)
[2024-11-12] MEDS: buPROPion HCl XL 150 MG TAB.ER.24H PO (12:53)
[2024-11-12] MEDS: NIFEdipine ER 30 MG TAB.ER.24 PO (12:53)
[2024-11-12] MEDS: calcitrioL 0.25 MCG CAPSULE PO (12:54)
[2024-11-12] MEDS: Sertraline HCL 50 MG TABLET PO (12:54)
[2024-11-12] MEDS: carvediloL 25 MG TABLET PO ×2 (12:54→21:39)
[2024-11-12] MEDS: Spironolactone 25 MG TABLET PO (12:54)
--- NOTE | 2024-11-12 14:06 | CA_ITS ---
Transthoracic Echocardiogram Patient (Last, First, Middle): Dillon Lucio, Gender: Male Date of : 1965 Age: 59 Procedure Date: 11/12/2024 Procedure Type: Transthoracic Echocardiogram Location: [facility] – [place], [place] Height: 172.72 cm Weight: 104.78 kg BSA: 2.17 m2 Heart Rate: bpm BP: 161 / 88 mmHg Head Of Sales And Marketing: TO Referring MD: Maria Fernanda Swenson MD Paperhanger: Lewis Willett MD Symptoms: CHF Study Quality: Fair, contrast ECG Rhythm: Sinus Conclusions: - 1. Mildly reduced LV ejection fraction 45-50% with moderate LVH with impaired relaxation filling pattern 2. Moderately dilated left atrium 3. Normal cardiac valvular Dopplers 4. Normal measured right atrial pressures 5. Trivial pericardial effusion Findings Procedure Information Contrast agent, definity, is being given per protocol without apparent complications. Left Ventricle Normal left ventricular cavity size. There is moderately increased left ventricular wall thickness. The left ventricular systolic function is mildly decreased. The visually estimated ejection fraction is between 45-50%. Spectral Doppler is indicative of an impaired relaxation filling pattern. E/E prime ratio is between 8 and 15 consistent with indeterminate filling pressures. Right Ventricle Normal right ventricular cavity size and systolic function. Atria The left atrium is moderately dilated. There is no evidence of interatrial shunt. The right atrium is normal in size. Aortic Valve There is mild calcification of the aortic valve. There is no aortic valve stenosis. There is no aortic valve regurgitation. Mitral Valve Normal mitral valve structure and function. There is trace mitral valve regurgitation. There is no mitral valve stenosis. Pulmonic Valve The pulmonic valve is likely normal. Tricuspid Valve Tricuspid regurgitation envelope is inadequate for calculation of right ventricular systolic pressure. Normal right atrial pressure. Great Vessels The pulmonary artery was not well visualized. There is mild dilatation of the ascending aorta measuring 3.70 cm. Venous The inferior vena cava is normal in size and collapses greater than 50% with inspiration. Pericardium/Pleural There is a trivial pericardial effusion. Measurements 2D Linear Measurements IVSd: 1.43 0.6-0.9/0.6-1.0 cm LVIDd: 5.52 3.9-5.3/4.2-5.9 cm LVIDd Index: 2.54 2.4-3.2/2.2-3.1 cm/m2 LVIDs: 4.06 2.0-3.6 cm LVPWd: 1.30 0.7-1.1 cm LA Diam: 4.50 2.7-3.8/3.0-4.0 cm LAIDs Index: 2.07 1.5-2.3 cm/m2 LV Mass: 409.05 67-162/88-224 g LV Mass Index: 188.50 43-95/49-115 g/m2 LVOT Diam: 2.50 3.0+(-)1.3 cm 2D Systolic Function EF 4C: 44.80 >55% EF 2C: 46.30 >55% EF BiP: 45.50 >55% Mitral Valve MV Pk E: 0.57 MV PK A: 0.76 MV Decel Time: 238.00 E/A: 0.70 E'Lateral: 5.22 E'Medial: 4.57 E/E' Med: 12.50 E/E' Lat: 10.90 PHT: 70.00 MVA PHT: 3.14 Decel Overton: 2.40 Aortic Valve AoV Pk Mason: 1.56 AoV Mn Mason: 1.01 AoV VTI: 0.33 AoV Pk Grad: 10.00 Aov Mn Grad: 5.00 MYRTLE Cont.VTI: 2.92 LVOT LVOT Pk Mason: 0.88 LVOT Mn Mason: 0.55 LVOT VTI: 0.20 LVOT Pk Grad: 3.00 LVOT Mn Grad: 1.00 LVOT Diam: 2.50 LVOT Area: 4.91 Diastolic Function MV Pk E: 0.57 MV Pk A: 0.76 E/A: 0.70 E'Medial: 4.57 E/E' Med: 12.50 E' Laterial: 5.22 E/E' Lat: 10.90 Right Ventricle TAPSE (mm): 26.50 TVS' Mason: 12.00 Tricuspid Valve RA Press: 3.00 Great Vessels Aorta Sinus of Valsalva: 3.94 2.0-3.5 cm Ao Asc: 3.70 2.1-3.4 cm Updated in Other Vendor System with Status of Final Lewis Willett MD electronically signed on 11/12/2024 4:42:44 PM with status of Final
--- NOTE | 2024-11-12 15:28 | P.PNIM_ITS ---
Subjective Subjective Date of Service: 11/12/24 Interval History: diuresing, negative 1700mL thus far, less swollen, no metallic taste in mouth Review of Systems Review of Systems: Yes all other systems are reviewed and are negative Physical Exam 2 Vital Signs: Vital Signs: Last Vital Signs Temp 97.6 F 11/12/24 12:49 Pulse 72 11/12/24 12:49 Resp 16 11/12/24 12:49 BP 161/89 H 11/12/24 12:49 Pulse Ox 97 11/12/24 12:49 O2 Del Method Room Air 11/12/24 12:49 BMI result Body Mass Index 35.1 Gen: in no acute distress HEENT: sclera anicteric, moist mucus membranes Neck: supple Lungs: clear to auscultation bilaterally Heart: regular rate and rhythm, no murmurs Abd: soft, non-tender, non-distended Ext: 2+ edema of legs bilaterally, also edematous hands Skin: warm/well-perfused Neuro: alert and oriented x3, no focal findings Psych: appropriate affect Objective Data Active Medications Acetaminophen (Acetaminophen 325 Mg Tablet) 650 mg PO Q6H PRN PRN Reason: Pain, Mild 1-3,fever,headache Aripiprazole (Aripiprazole 2 Mg Tablet) 2 mg PO DAILY [facility] Last Admin: 11/12/24 12:51 Dose: 2 mg Documented By: DENISE Atorvastatin Calcium (Atorvastatin Calcium 80 Mg Tablet) 80 mg PO DAILY [facility] Last Admin: 11/12/24 12:51 Dose: 80 mg Documented By: DENISE Bupropion HCl (Bupropion Hcl Xl 150 Mg Tab.Er.24h) 150 mg PO DAILY [facility] Last Admin: 11/12/24 12:53 Dose: 150 mg Documented By: DENISE Calcitriol (Calcitriol 0.25 Mcg Capsule) 0.25 mcg PO DAILY [facility] Last Admin: 11/12/24 12:54 Dose: 0.25 mcg Documented By: DENISE Calcium Carbonate (Calcium Carbonate 750 Mg Tab.Chew) 750 mg PO Q4H PRN PRN Reason: Heartburn Carvedilol (Carvedilol 25 Mg Tablet) 25 mg PO BID [facility]; Protocol Last Admin: 11/12/24 12:54 Dose: 25 mg Documented By: DENISE Clonidine HCl (Clonidine Hcl 0.2 Mg Tablet) 0.2 mg PO BID [facility]; Protocol Dextrose (Dextrose 50 % 25 Gm/50 Ml Syringe) 25 gm IVPUSH Q15M PRN; Protocol PRN Reason: per Hypoglycemia Standing Ord. Glucose (Glucose Gel 15 Gm Gel..Gram.) 15 gm PO Q15M PRN; Protocol PRN Reason: per Hypoglycemia Standing Ord. Last Admin: 11/12/24 06:12 Dose: 15 gm Documented By: CYRIL Hydralazine HCl (Hydralazine Hcl 50 Mg Tablet) 100 mg PO TID [facility]; Protocol Bumetanide 25 mg/ IV (Miscellaneous Supplies) 100 mls @ 4 mls/hr IVCONT .Q24H [facility] Last Infusion: 11/12/24 10:59 Dose: Infused Documented By: DENISE Desmopressin Acetate 20 mcg/ (Sodium Chloride) 55 mls @ 100 mls/hr IV ONCE PRN PRN Reason: 30 min prior to renal biopsy Insulin Human Lispro (Insulin Lispro 100 Unit/Ml 3 Ml Vial) 0 unit SUBCUT QIDACHS [facility]; Protocol Last Admin: 11/12/24 14:00 Dose: Not Given Documented By: DENISE Non-Admin Reason: NPO, had low glucose earlier today Labetalol HCl (Labetalol Hcl 100 Mg/20 Ml Vial) 10 mg IVPUSH Q4H PRN PRN Reason: BP > 170 Last Admin: 11/12/24 03:00 Dose: 10 mg Documented By: CYRIL Magnesium Hydroxide (Milk Of Magnesia 30 Ml Oral.Susp) 30 ml PO DAILY PRN PRN Reason: Constipation Melatonin (Melatonin 3 Mg Tablet) 6 mg PO BEDTIME PRN PRN Reason: Insomnia Mirtazapine (Mirtazapine 15 Mg Tablet) 15 mg PO BEDTIME [facility] Nifedipine (Nifedipine Er 30 Mg Tab.Er.24) 30 mg PO DAILY [facility]; Protocol Last Admin: 11/12/24 12:53 Dose: 30 mg Documented By: DENISE Non-Formulary Medication (Cholecalciferol (Vitamin D3)) 1,250 mcg PO .QWEEK [facility] Non-Formulary Medication (Sodium Polystyrene Sulfonate) 30 gm PO DAILY [facility] Ondansetron HCl (Ondansetron Hcl 4 Mg/2 Ml Vial) 4 mg IVPUSH Q8H PRN PRN Reason: Nausea and Vomiting Sertraline HCl (Sertraline Hcl 50 Mg Tablet) 50 mg PO DAILY [facility] Last Admin: 11/12/24 12:54 Dose: 50 mg Documented By: DENISE Sevelamer Carbonate (Sevelamer Carbonate Tablet 800 Mg Tablet) 800 mg PO TIDWM [facility] Last Admin: 11/12/24 12:54 Dose: 800 mg Documented By: DENISE Sodium Bicarbonate (Sodium Bicarbonate 650 Mg Tablet) 1,300 mg PO BID [facility] Last Admin: 11/12/24 12:52 Dose: 1,300 mg Documented By: DENISE Sodium Chloride (0.9 % Sodium Chloride Flush 3 Ml Syringe) 3 ml IVFLUSH QSHIFT [facility] Last Admin: 11/12/24 07:25 Dose: 3 ml Documented By: CYRIL Spironolactone (Spironolactone 25 Mg Tablet) 25 mg PO DAILY [facility]; Protocol Last Admin: 11/12/24 12:54 Dose: 25 mg Documented By: DENISE Trazodone HCl (Trazodone Hcl 50 Mg Tablet) 50 mg PO BEDTIME [facility] Labs 11/12/24 05:25 11/12/24 05:25 Labs: Laboratory Results - last 24 hr 11/11/24 11/11/24 11/11/24 15:42 18:05 20:48 MCV MCH MCHC RDW Plt Count MPV Absolute Nucleated RBC Nucleated RBC % (auto) PT INR Anion Gap Estim Creat Clear Calc Estimated GFR POC Glucose 142 H Random Glucose Calcium Magnesium Troponin I High Sens 287.7 H* B-Natriuretic Peptide Urine Color Yellow Urine Appearance Clear Urine pH 7.0 Ur Specific [place] 1.020 Urine Protein >=1000 (4+) H Urine Glucose (UA) 250 H Urine Ketones Trace Urine Blood Trace H Urine Nitrite Negative Ur Leukocyte Esterase Negative Urine RBC 6-10 H Urine WBC 0-5 Ur Squamous Epith Cells 0-2 Urine Bacteria None Seen Hyaline Casts 3-5 11/12/24 11/12/24 11/12/24 05:25 06:34 06:47 MCV 90.0 MCH 29.6 MCHC 32.8 RDW 15.1 Plt Count 134 L MPV 11.0 Absolute Nucleated RBC 0.000 Nucleated RBC % (auto) 0.0 PT 11.3 INR 1.0 Anion Gap 13 Estim Creat Clear Calc 15.0 Estimated GFR 10 POC Glucose 105 115 Random Glucose 55 L* Calcium 8.1 L Magnesium 1.8 Troponin I High Sens B-Natriuretic Peptide 2678 H Urine Color Urine Appearance Urine pH Ur Specific [place] Urine Protein Urine Glucose (UA) Urine Ketones Urine Blood Urine Nitrite Ur Leukocyte Esterase Urine RBC Urine WBC Ur Squamous Epith Cells Urine Bacteria Hyaline Casts 11/12/24 11/12/24 07:04 10:48 MCV MCH MCHC RDW Plt Count MPV Absolute Nucleated RBC Nucleated RBC % (auto) PT INR Anion Gap Estim Creat Clear Calc Estimated GFR POC Glucose 127 H 181 H Random Glucose Calcium Magnesium Troponin I High Sens B-Natriuretic Peptide Urine Color Urine Appearance Urine pH Ur Specific [place] Urine Protein Urine Glucose (UA) Urine Ketones Urine Blood Urine Nitrite Ur Leukocyte Esterase Urine RBC Urine WBC Ur Squamous Epith Cells Urine Bacteria Hyaline Casts Assessment and Plan (1) Acute heart failure: Status: Acute Assessment and Plan: d2 for 59yo M with RACHEL on CPAP, HF with mildly reduced EF, DM2, HTN, HLD, and CKD5 with nephrotic-range proteinuria likely due to diabetic nephropathy sent in by his photographic lithographer, Dr Wily Mims, for worsening renal function in the setting of peripheral edema of the legs and hands along with orthopnea and generalized weakness. Last admitted here 10/21-10/26/24 for CHF exacerbation/volume overload. hypervolemia MARII/CKD5 acute-chronic HF with mildly reduced EF - continue bumetanide drip 1 mg/hr, monitor BNP/BMP/Mg + wts/I+O, Nephrology + Cardiology consulted and following - renal doppler to assess for TAMMY - CT-guided renal biopsy tomorrow with ddAVP 20 mcg 30 due to risk of uremic bleeding - screen for light chain amyloidosis with SPEP, UPEP, sFLCR - continue sevelamer, calcitriol, sodium bicarbonate, Kayexelate - continue carvedilol, nifedipine, clonidine; increase hydralazine; add Isordil; d/c spironolactone - update TTE to check for progressive LV dysfunction troponin indeterminate - flat, likely due to CHF HLD - continue statin mood disorder - continue aripiprazole, bupropin, clonidine, mirtazapine, sertraline DM2 - correction-dose lispro RA - continue leflunomide, sulfasalazine VTE ppx - SCDs, hold heparin for renal biopsy dispo - eventual home with VNA In my clinical judgment, the patient requires continued inpatient hospitalization for the following reasons: IV diuresis, renal biopsy Total time managing care of this patient today: 50 minutes. Quality Stroke Does the patient have a stroke diagnosis?: No VTE Prior VTE?: No VTE Risk Level:: Medical - moderate - high VTE Device Contraindication: N/A - Device Ordered VTE Drug Contraindication: Treatment Not Indicated
[2024-11-12 16:18] LABS: Glucose, Whole Blood 87 mg/dL (60-115)
[2024-11-12] MEDS: hydrALAZINE HCl 50 MG TABLET 100 MG PO ×2 (16:25→21:38)
[2024-11-12] MEDS: Bumetanide 25 MG in Container,Empty 0 ML 4 MG IVCONT (18:29)
[2024-11-12] MEDS: cloNIDine HCL 0.2 MG TABLET PO (19:47)
[2024-11-12] MEDS: Mirtazapine 15 MG TABLET PO (19:47)
[2024-11-12] MEDS: Isosorbide Dinitrate 5 MG TABLET PO (19:47)
[2024-11-12] MEDS: traZODone HCL 50 MG TABLET PO (19:47)
[2024-11-12 20:54] LABS: Glucose, Whole Blood 131 mg/dL (60-115)
[2024-11-13] MEDS: Melatonin 3 MG TABLET 6 MG PO ×2 (00:20→23:42)
[2024-11-13] MEDS: 0.9 % Sodium Chloride Flush 3 ML SYRINGE IVFLUSH ×2 (00:21→20:35)
[2024-11-13 04:00] VITALS: BP 128/72; PULSE 73; RESP 18; TEMP 36.8; O2SAT 95
[2024-11-13 08:00] VITALS: BP 173/83; PULSE 76; RESP 17; TEMP 36.5; O2SAT 94
[2024-11-13 08:06] LABS: Glucose, Whole Blood 76 mg/dL (60-115)
[2024-11-13 08:13] LABS: Anion Gap 13 (12-20); Blood Urea Nitrogen 82 mg/dL (9-16); Calcium 7.9 mg/dL (8.4-10.2); Carbon Dioxide 20 mmol/L (22-29); Chloride 112 mmol/L (96-108); Creatinine Clr Calc Pharmacy 14.1; Estimated Glomerular Filt Rate 9; Glucose Random 69 mg/dL (60-115); Magnesium 1.7 mg/dL (1.6-2.6); Potassium 4.4 mmol/L (3.3-5.1); Sodium 141 mmol/L (135-145)
[2024-11-13 08:18] LABS: B Type Natriuretic Peptide 1154 pg/mL (<100)
[2024-11-13] MEDS: carvediloL 25 MG TABLET PO ×2 (08:32→20:34)
[2024-11-13] MEDS: cloNIDine HCL 0.2 MG TABLET PO ×2 (08:32→20:34)
[2024-11-13] MEDS: Isosorbide Dinitrate 5 MG TABLET PO (08:32)
[2024-11-13] MEDS: Sertraline HCL 50 MG TABLET PO (08:32)
[2024-11-13] MEDS: Sevelamer Carbonate Tablet 800 MG TABLET PO ×3 (08:32→17:26)
[2024-11-13] MEDS: buPROPion HCl XL 150 MG TAB.ER.24H PO (08:32)
[2024-11-13] MEDS: NIFEdipine ER 30 MG TAB.ER.24 PO (08:32)
[2024-11-13] MEDS: calcitrioL 0.25 MCG CAPSULE PO (08:32)
[2024-11-13] MEDS: ARIPiprazole 2 MG TABLET PO (08:32)
[2024-11-13] MEDS: Sodium Bicarbonate 650 MG TABLET 1300 MG PO ×2 (08:32→20:33)
[2024-11-13] MEDS: hydrALAZINE HCl 50 MG TABLET 100 MG PO ×3 (08:33→20:34)
[2024-11-13] MEDS: Atorvastatin Calcium 80 MG TABLET PO (08:33)
[2024-11-13] MEDS: Dextrose 50 % 25 GM/50 ML SYRINGE IVPUSH (08:36)
[2024-11-13] MEDS: Acetaminophen 325 MG TABLET 650 MG PO ×2 (08:42→23:42)
[2024-11-13 08:49] LABS: Glucose, Whole Blood 164 mg/dL (60-115)
--- NOTE | 2024-11-13 10:22 | PM.PNCARD ---
Subjective Subjective Date of Service: 11/13/24 Principal diagnosis: Fluid overload Interval history: Echo done yesterday shows maintained LV EF of 45-50% with moderate LVH but the filling pressures appear to be within normal limits including right atrial filling pressures with collapsible IVC. Review of Systems Constitutional: Reports no additional constitutional complaints Eyes: Reports no additional eye complaints Cardiovascular: Denies chest pain, Reports edema, Denies lightheadedness, Denies Loss of Consciousness and Reports dyspnea on exertion Respiratory: Reports dyspnea on exertion Musculoskeletal: Reports no additional musculoskeletal complaints Physical Exam Vital Signs: Last Vital Signs Temp 97.7 F 11/13/24 08:00 Pulse 76 11/13/24 08:00 Resp 17 11/13/24 08:00 BP 173/83 H 11/13/24 08:00 Pulse Ox 94 11/13/24 08:00 O2 Del Method Room Air 11/13/24 04:00 BMI result Body Mass Index 35.1 Const General: cooperative, comfortable, no acute distress, alert and awake Nutritional Appearance: obese Orientation/consciousness: patient oriented x3 HEENT Head: Yes normocephalic and Yes atraumatic Neck Neck: Yes trachea midline, Yes supple and Yes no JVD Resp Effort & Inspection: normal respiratory effort Auscultation: clear to auscultation bilaterally Cardio Jugular venous distension: no JVD Rate: regular rate Rhythm: regular rhythm Heart sounds: S1 normal heart sound present, S2 normal heart sound present, no click, no gallops and no murmurs GI Auscultation: normal bowel sounds Skin General skin exam: no rashes or lesions noted Neuro General: patient oriented x3 and no focal motor deficits Extrem General: No clubbing, No cyanosis and Yes edema Psych Appearance: grossly normal Objective Labs and Meds 11/12/24 05:11/13/24 07:31 Lab results: Laboratory Results - last 24 hr 11/12/24 11/12/24 11/12/24 10:48 16:07 20:51 Sodium Potassium Chloride Carbon Dioxide Anion Gap BUN Creatinine Estim Creat Clear Calc Estimated GFR POC Glucose 181 H 87 131 H Random Glucose Calcium Magnesium B-Natriuretic Peptide 11/13/24 11/13/24 11/13/24 07:31 07:59 08:46 Sodium 141 Potassium 4.4 Chloride 112 H Carbon Dioxide 20 L Anion Gap 13 BUN 82 H Creatinine 6.45 H* Estim Creat Clear Calc 14.1 Estimated GFR 9 POC Glucose 76 164 H Random Glucose 69 Calcium 7.9 L Magnesium 1.7 B-Natriuretic Peptide 1154 H Imaging Radiologist's impression: Impressions Renal Ultrasound 11/12/24 14:40 IMPRESSION: No hemodynamically significant stenosis in either main renal artery. Slight abnormal resistive indicis, right kidney. No hydronephrosis. Trace of fluid, right perirenal/paranephric. Probably related to recent biopsy. Recommend follow-up. Electronically signed by: Adiel Painter MD 11/12/2024 03:45 PM EDT RP Renal Ultrasound 11/12/24 14:40 IMPRESSION: No hemodynamically significant stenosis in either main renal artery. Slight abnormal resistive indicis, right kidney. No hydronephrosis. Trace of fluid, right perirenal/paranephric. Probably related to recent biopsy. Recommend follow-up. Electronically signed by: Adiel Painter MD 11/12/2024 03:45 PM EDT RP Progress Note: A&P Assessment and plan (1) Anasarca: Status: Resolved Assessment and Plan: Generalized swelling in him with echocardiogram showing normal right atrial pressures and normal left atrial pressures, suggest that he is probably not in significant heart failure. He has elevated BNP probably related to his underlying myocardial disease and acute renal insufficiency. Clinically I would continue with IV diuresis although he requires further evaluation for his rapidly progressive kidney disease. He is scheduled for renal biopsy. Continue aggressive blood pressure control which appears to be not well optimized. Continue current therapy and increase Isordil as tolerated. At this point time will sign of the case. Thank you for allowing me to partake in his care Time Spent With Patient Time: Total time managing care of this patient today ____ minutes. Progress Note: Quality Stroke Does the patient have a stroke diagnosis?: No Procedures Date of Service Date of Service: 11/13/24
--- NOTE | 2024-11-13 10:49 | MHC.CM.PN ---
Per ROUNDS discussion, Patient is not yet medically cleared for dc (Renal Biopsy today); home/resume services is the goal and CM will continue to follow.
--- NOTE | 2024-11-13 11:25 | P.PNIM_ITS ---
Subjective Subjective Date of Service: 11/13/24 Interval History: dyspnea + edema improving, diuresing well but SCr not improving renal biopsy postponed due to uncontrolled BP Review of Systems Review of Systems: Yes all other systems are reviewed and are negative Physical Exam 2 Vital Signs: Vital Signs: Last Vital Signs Temp 97.7 F 11/13/24 08:00 Pulse 76 11/13/24 08:00 Resp 17 11/13/24 08:00 BP 173/83 H 11/13/24 08:00 Pulse Ox 94 11/13/24 08:00 O2 Del Method Room Air 11/13/24 04:00 BMI result Body Mass Index 35.1 Gen: in no acute distress HEENT: sclera anicteric, moist mucus membranes Neck: supple Lungs: clear to auscultation bilaterally Heart: regular rate and rhythm, no murmurs Abd: soft, non-tender, non-distended Ext: 2+ edema of legs bilaterally, also edematous hands Skin: warm/well-perfused Neuro: alert and oriented x3, no focal findings Psych: appropriate affect Objective Data Active Medications Acetaminophen (Acetaminophen 325 Mg Tablet) 650 mg PO Q6H PRN PRN Reason: Pain, Mild 1-3,fever,headache Last Admin: 11/13/24 08:42 Dose: 650 mg Documented By: ESTEPHANIE Aripiprazole (Aripiprazole 2 Mg Tablet) 2 mg PO DAILY [facility] Last Admin: 11/13/24 08:32 Dose: 2 mg Documented By: ESTEPHANIE Atorvastatin Calcium (Atorvastatin Calcium 80 Mg Tablet) 80 mg PO DAILY [facility] Last Admin: 11/13/24 08:33 Dose: 80 mg Documented By: ESTEPHANIE Bupropion HCl (Bupropion Hcl Xl 150 Mg Tab.Er.24h) 150 mg PO DAILY [facility] Last Admin: 11/13/24 08:32 Dose: 150 mg Documented By: ESTEPHANIE Calcitriol (Calcitriol 0.25 Mcg Capsule) 0.25 mcg PO DAILY [facility] Last Admin: 11/13/24 08:32 Dose: 0.25 mcg Documented By: ESTEPHANIE Calcium Carbonate (Calcium Carbonate 750 Mg Tab.Chew) 750 mg PO Q4H PRN PRN Reason: Heartburn Carvedilol (Carvedilol 25 Mg Tablet) 25 mg PO BID [facility]; Protocol Last Admin: 11/13/24 08:32 Dose: 25 mg Documented By: ESTEPHANIE Clonidine HCl (Clonidine Hcl 0.2 Mg Tablet) 0.2 mg PO BID [facility]; Protocol Last Admin: 11/13/24 08:32 Dose: 0.2 mg Documented By: ESTEPHANIE Dextrose (Dextrose 50 % 25 Gm/50 Ml Syringe) 25 gm IVPUSH Q15M PRN; Protocol PRN Reason: per Hypoglycemia Standing Ord. Last Admin: 11/13/24 08:36 Dose: 25 gm Documented By: ESTEPHANIE Glucose (Glucose Gel 15 Gm Gel..Gram.) 15 gm PO Q15M PRN; Protocol PRN Reason: per Hypoglycemia Standing Ord. Last Admin: 11/12/24 06:12 Dose: 15 gm Documented By: CYRIL Hydralazine HCl (Hydralazine Hcl 50 Mg Tablet) 100 mg PO TID [facility]; Protocol Last Admin: 11/13/24 08:33 Dose: 100 mg Documented By: ESTEPHANIE Bumetanide 25 mg/ IV (Miscellaneous Supplies) 100 mls @ 4 mls/hr IVCONT .Q24H [facility] Last Admin: 11/12/24 18:29 Dose: 1 mg/hr, 4 mls/hr Documented By: DENISE Desmopressin Acetate 20 mcg/ (Sodium Chloride) 55 mls @ 100 mls/hr IV ONCE PRN PRN Reason: 30 min prior to renal biopsy Insulin Human Lispro (Insulin Lispro 100 Unit/Ml 3 Ml Vial) 0 unit SUBCUT QIDACHS [facility]; Protocol Last Admin: 11/13/24 08:25 Dose: Not Given Documented By: ESTEPHANIE Non-Admin Reason: No Insulin Coverage Isosorbide Dinitrate (Isosorbide Dinitrate 10 Mg Tablet) 10 mg PO TID@0800,1300,1800 [facility]; Protocol Labetalol HCl (Labetalol Hcl 100 Mg/20 Ml Vial) 10 mg IVPUSH Q4H PRN PRN Reason: BP > 170 Last Admin: 11/12/24 03:00 Dose: 10 mg Documented By: CYRIL Magnesium Hydroxide (Milk Of Magnesia 30 Ml Oral.Susp) 30 ml PO DAILY PRN PRN Reason: Constipation Melatonin (Melatonin 3 Mg Tablet) 6 mg PO BEDTIME PRN PRN Reason: Insomnia Last Admin: 11/13/24 00:20 Dose: 6 mg Documented By: HOWARD Mirtazapine (Mirtazapine 15 Mg Tablet) 15 mg PO BEDTIME [facility] Last Admin: 11/12/24 19:47 Dose: 15 mg Documented By: HOWARD Nifedipine (Nifedipine Er 30 Mg Tab.Er.24) 30 mg PO DAILY [facility]; Protocol Last Admin: 11/13/24 08:32 Dose: 30 mg Documented By: ESTEPHANIE Non-Formulary Medication (Cholecalciferol (Vitamin D3)) 1,250 mcg PO .QWEEK [facility] Non-Formulary Medication (Sodium Polystyrene Sulfonate) 30 gm PO DAILY [facility] Ondansetron HCl (Ondansetron Hcl 4 Mg/2 Ml Vial) 4 mg IVPUSH Q8H PRN PRN Reason: Nausea and Vomiting Sertraline HCl (Sertraline Hcl 50 Mg Tablet) 50 mg PO DAILY [facility] Last Admin: 11/13/24 08:32 Dose: 50 mg Documented By: ESTEPHANIE Sevelamer Carbonate (Sevelamer Carbonate Tablet 800 Mg Tablet) 800 mg PO TIDWM [facility] Last Admin: 11/13/24 08:32 Dose: 800 mg Documented By: ESTEPHANIE Sodium Bicarbonate (Sodium Bicarbonate 650 Mg Tablet) 1,300 mg PO BID [facility] Last Admin: 11/13/24 08:32 Dose: 1,300 mg Documented By: ESTEPHANIE Sodium Chloride (0.9 % Sodium Chloride Flush 3 Ml Syringe) 3 ml IVFLUSH QSHIFT [facility] Last Admin: 11/13/24 08:33 Dose: Not Given Documented By: ESTEPHANIE Non-Admin Reason: IV Running Spironolactone (Spironolactone 25 Mg Tablet) 25 mg PO DAILY [facility]; Protocol Last Admin: 11/12/24 12:54 Dose: 25 mg Documented By: DENISE Trazodone HCl (Trazodone Hcl 50 Mg Tablet) 50 mg PO BEDTIME [facility] Last Admin: 11/12/24 19:47 Dose: 50 mg Documented By: HOWARD Labs 11/12/24 05:25 11/13/24 07:31 Labs: Laboratory Results - last 24 hr 05/29/25 05/29/25 05/30/25 16:07 20:51 07:31 Anion Gap 13 Estim Creat Clear Calc 14.1 Estimated GFR 9 POC Glucose 87 131 H Random Glucose 69 Calcium 7.9 L Magnesium 1.7 B-Natriuretic Peptide 1154 H 11/13/24 11/13/24 07:59 08:46 Anion Gap Estim Creat Clear Calc Estimated GFR POC Glucose 76 164 H Random Glucose Calcium Magnesium B-Natriuretic Peptide ITS Impressions Chest X-Ray 11/11/24 13:08 IMPRESSION: No active pulmonary disease. Electronically signed by: Prosper Ward MD 11/11/2024 01:30 PM EDT RP Renal Ultrasound 11/12/24 14:40 IMPRESSION: No hemodynamically significant stenosis in either main renal artery. Slight abnormal resistive indicis, right kidney. No hydronephrosis. Trace of fluid, right perirenal/paranephric. Probably related to recent biopsy. Recommend follow-up. Electronically signed by: Adiel Painter MD 11/12/2024 03:45 PM EDT RP Assessment and Plan (1) Acute heart failure: Status: Inactive Assessment and Plan: d3 for 59yo M with RACHEL on CPAP, HF with mildly reduced EF, DM2, HTN, HLD, and CKD5 with nephrotic-range proteinuria likely due to diabetic nephropathy sent in by his block inspector, Dr Wily Mims, for worsening renal function in the setting of peripheral edema of the legs and hands along with orthopnea and generalized weakness. Last admitted here 10/21-10/26/24 for CHF exacerbation/volume overload. hypervolemia MARII/CKD5 nephrotic syndrome acute-chronic HF with mildly reduced EF - continue bumetanide drip 1 mg/hr, monitor BNP/BMP/Mg + wts/I+O, Nephrology following, Cardiology consulted - renal doppler to assess for TAMMY negative - CT-guided renal biopsy deferred to 11/16, will need ddAVP 20 mcg 30 due to risk of uremic bleeding - screen for light chain amyloidosis with SPEP, UPEP, sFLCR pending - continue sevelamer, calcitriol, sodium bicarbonate, Kayexelate - continue carvedilol, clonidine; increase hydralazine; increase Isordil; increase nifedipine; d/c'ed spironolactone - updated TTE to check for progressive LV dysfunction; no significant change from 08/21 to 11/12 and atrial pressures are normal suggestive of hypervolemia driven more by nephrotic syndrome than HF troponin indeterminate - flat, likely due to CHF HLD - continue statin mood disorder - continue aripiprazole, bupropin, clonidine, mirtazapine, sertraline DM2 - correction-dose lispro RA - continue leflunomide, sulfasalazine VTE ppx - SCDs, hold heparin for renal biopsy dispo - eventual home with VNA In my clinical judgment, the patient requires continued inpatient hospitalization for the following reasons: IV diuresis, renal biopsy Total time managing care of this patient today: 50 minutes. Quality Stroke Does the patient have a stroke diagnosis?: No VTE Prior VTE?: No VTE Risk Level:: Medical - moderate - high VTE Device Contraindication: N/A - Device Ordered VTE Drug Contraindication: Treatment Not Indicated
[2024-11-13 12:00] VITALS: BP 128/65; PULSE 66; RESP 17; TEMP 36.3; O2SAT 94
[2024-11-13 12:03] LABS: Glucose, Whole Blood 93 mg/dL (60-115)
[2024-11-13] MEDS: Isosorbide Dinitrate 10 MG TABLET PO ×2 (12:37→17:26)
--- NOTE | 2024-11-13 13:41 | P.PNNP_ITS ---
Subjective Subjective Date of Service: 11/13/24 Principal diagnosis: Fluid overload Interval history: Nephrology following for management of advanced renal disease, fluid overload creatinine 6.00 11/12, down from 6.16 11/11, 6.45 11/12 has been on bumex drip at 1mg/hr patient reports he is feeling ok today still has significant swelling in hands and legs/feet, reports it continues to feel improved reports his breathing is comfortable (though has not been exerting himself) he denies chest pain, shortness of breath at rest, nausea, vomiting, diarrhea, urticaria, urinary symptoms. Physical Exam 2 Vital Signs: Vital Signs: Last Vital Signs Temp 97.4 F 11/13/24 12:00 Pulse 66 11/13/24 12:00 Resp 17 11/13/24 12:00 BP 128/65 11/13/24 12:00 Pulse Ox 94 11/13/24 12:00 O2 Del Method Room Air 11/13/24 12:00 BMI result Body Mass Index 35.1 Const: General: no acute distress, alert and awake Resp: Effort & Inspection: normal respiratory effort and able to speak in complete sentences Auscultation: clear to auscultation bilaterally Cardio: Rate: regular rate Rhythm: regular rhythm Heart sounds: S1 normal heart sound present and S2 normal heart sound present GI: Palpation (GI): Soft to palpation and nontender : General: Yes no CVA tenderness Back/Spine/Pelvis: Back: no CVA tenderness Skin: Rashes: no rashes Neuro: Other: no tremor, no asterixis. Extrem: General: Yes edema (BUE +2, BLE +2 pitting) Objective Data Labs 11/12/24 05:25 11/13/24 07:31 Labs: Laboratory Results - last 24 hr 11/12/24 11/12/24 11/13/24 16:07 20:51 07:31 Sodium 141 Potassium 4.4 Chloride 112 H Carbon Dioxide 20 L Anion Gap 13 BUN 82 H Creatinine 6.45 H* Estim Creat Clear Calc 14.1 Estimated GFR 9 POC Glucose 87 131 H Random Glucose 69 Calcium 7.9 L Magnesium 1.7 B-Natriuretic Peptide 1154 H 11/13/24 11/13/24 11/13/24 07:59 08:46 11:55 Sodium Potassium Chloride Carbon Dioxide Anion Gap BUN Creatinine Estim Creat Clear Calc Estimated GFR POC Glucose 76 164 H 93 Random Glucose Calcium Magnesium B-Natriuretic Peptide Procedures Date of Service Date of Service: 11/13/24 Assessment & Plan Assessment and plan (1) Hypertension: Status: Acute (2) Edema: Status: Acute Plan Advanced kidney disease with worsening hypervolemia, dyspnea on exertion, orthopnea, weight gain Progression of chronic renal disease on differential cardiorenal syndrome amyloidosis also a possibility given patient's age rate of onset of progression of disease patient needs a renal biopsy, has been ordered as inpatient though elevated blood pressures have delayed biopsy. will give 1x dose of metolazone 10mg today, and another 1x dose of metolazone 10mg tomorrow. Patient should have dose of 20mcg DDAVP prior to biopsy- has increased bleeding risk with advanced renal disease patient remains clinically hypervolemic, recommend continuing bumex drip No immediate indication for HD at this time initiated discussions regarding PD as outpatient- patient states he feels he has significant family support with spouse and adult children and has stable housing. recommend daily electrolyte and renal function studies recommend avoiding nephrotoxins recommend close blood pressure and I&O monitoring continue supportive care, will continue to follow Discussed with Dr Castro Time Spent With Patient Time: Total time managing care of this patient today ____ minutes. Progress Note: Quality Stroke Does the patient have a stroke diagnosis?: No
[2024-11-13] MEDS: metOLazone 5 MG TABLET 10 MG PO (15:06)
[2024-11-13] MEDS: Bumetanide 25 MG in Container,Empty 0 ML 4 MG IVCONT (15:07)
[2024-11-13 15:45] LABS: Glucose, Whole Blood 126 mg/dL (60-115)
[2024-11-13 15:59] VITALS: BP 122/59; PULSE 63; RESP 18; TEMP 36.4; O2SAT 94
[2024-11-13 19:33] VITALS: BP 113/58; PULSE 74; RESP 16; TEMP 36.6; O2SAT 94
[2024-11-13 20:10] LABS: Glucose, Whole Blood 132 mg/dL (60-115)
[2024-11-13] MEDS: Mirtazapine 15 MG TABLET PO (20:34)
[2024-11-13] MEDS: traZODone HCL 50 MG TABLET PO (20:34)
[2024-11-13 21:59] LABS: PES - Abn Protein Band 1 0.2 g/dL (NONE DETECTED); Prot Elec - Albumin 2.3 g/dL (3.8-4.8); Prot Elec - Alpha1 0.3 g/dL (0.2-0.3); Prot Elec - Alpha2 0.8 g/dL (0.5-0.9); Prot Elec - Beta 1 0.3 g/dL (0.4-0.6); Prot Elec - Beta 2 0.3 g/dL (0.2-0.5); Prot Elec - Gamma 0.8 g/dL (0.8-1.7); Prot Elec - Total Protein 4.8 g/dL (6.1-8.1)
[2024-11-13 23:44] VITALS: BP 156/72; PULSE 71; RESP 16; TEMP 36.9; O2SAT 96
[2024-11-14] VITALS (8 sets, daily range): BP systolic 99–170; BP diastolic 56–78; PULSE 56–71; RESP 16–18; TEMP 36.3–36.9; O2SAT 94–96
[2024-11-14 06:58] LABS: Hematocrit 23.6 % (42.0-52.0); Hemoglobin 7.7 g/dl (14.0-18.0); Mean Corpuscular HGB Conc 32.6 g/dl (31.0-36.0); Mean Corpuscular Hemoglobin 29.6 pg (27.0-33.0); Mean Corpuscular Volume 90.8 fL (80.0-98.0); Mean Platelet Volume 11.4 fL (9.4-12.4); Platelet Count 131 X10*3/uL (160-400); Red Cell Distribution Width 14.9 % (11.0-16.0); White Blood Count 3.9 X10*3/uL (4.8-10.8)
[2024-11-14 06:59] LABS: Glucose, Whole Blood 62 mg/dL (60-115)
[2024-11-14 07:30] LABS: Anion Gap 13 (12-20); Blood Urea Nitrogen 81 mg/dL (9-16); Calcium 7.7 mg/dL (8.4-10.2); Carbon Dioxide 20 mmol/L (22-29); Chloride 111 mmol/L (96-108); Creatinine Clr Calc Pharmacy 12.6; Estimated Glomerular Filt Rate 8; Glucose Random 66 mg/dL (60-115); Magnesium 1.7 mg/dL (1.6-2.6); Potassium 4.2 mmol/L (3.3-5.1); Sodium 140 mmol/L (135-145)
[2024-11-14 07:43] LABS: Glucose, Whole Blood 95 mg/dL (60-115)
[2024-11-14 07:45] LABS: B Type Natriuretic Peptide 538 pg/mL (<100)
[2024-11-14 08:16] LABS: Immature Retic Fraction 8.9 % (2.3-13.4); Retic HGB Equivalent 33.4 pg (30.0-35.0); Reticulocyte Percent 0.8 % (0.5-1.8); Reticulocytes Absolute 0.021 X10*6/uL (0.026-0.095)
[2024-11-14] MEDS: 0.9 % Sodium Chloride Flush 3 ML SYRINGE IVFLUSH (08:40)
[2024-11-14] MEDS: cloNIDine HCL 0.1 MG TABLET 0.3 MG PO ×2 (08:41→20:30)
[2024-11-14] MEDS: Atorvastatin Calcium 80 MG TABLET PO (08:41)
[2024-11-14] MEDS: Sodium Bicarbonate 650 MG TABLET 1300 MG PO ×2 (08:42→20:31)
[2024-11-14] MEDS: carvediloL 25 MG TABLET PO ×2 (08:42→20:31)
[2024-11-14] MEDS: calcitrioL 0.25 MCG CAPSULE PO (08:42)
[2024-11-14] MEDS: ARIPiprazole 2 MG TABLET PO (08:42)
[2024-11-14] MEDS: Sertraline HCL 50 MG TABLET PO (08:42)
[2024-11-14] MEDS: hydrALAZINE HCl 50 MG TABLET 100 MG PO ×3 (08:42→20:30)
[2024-11-14] MEDS: NIFEdipine ER 30 MG TAB.ER.24 60 MG PO (08:43)
[2024-11-14] MEDS: Isosorbide Dinitrate 20 MG TABLET PO ×3 (08:43→18:09)
[2024-11-14] MEDS: buPROPion HCl XL 150 MG TAB.ER.24H PO (08:43)
[2024-11-14] MEDS: Sevelamer Carbonate Tablet 800 MG TABLET PO ×3 (08:43→16:42)
[2024-11-14] MEDS: Acetaminophen 325 MG TABLET 650 MG PO ×2 (08:55→23:24)
[2024-11-14] MEDS: metOLazone 5 MG TABLET 10 MG PO (10:30)
[2024-11-14 10:55] LABS: Glucose, Whole Blood 98 mg/dL (60-115)
[2024-11-14] MEDS: Bumetanide 25 MG in Container,Empty 0 ML 4 MG IVCONT (11:59)
--- NOTE | 2024-11-14 12:28 | HO.PM.IMPN ---
Subjective Subjective Date of Service: 11/14/24 Interval History: diuresing well, negative 5.8L thus far still has leg and hand edema Review of Systems Review of Systems: Yes all other systems are reviewed and are negative Physical Exam Vital Signs: Vital Signs: Last Vital Signs Temp 98.0 F 11/14/24 11:17 Pulse 56 11/14/24 11:17 Resp 18 11/14/24 11:17 BP 99/56 L 11/14/24 11:17 Pulse Ox 96 11/14/24 11:17 O2 Del Method Room Air 11/14/24 11:17 BMI result Body Mass Index 35.1 Gen: in no acute distress HEENT: sclera anicteric, moist mucus membranes Neck: supple Lungs: clear to auscultation bilaterally Heart: regular rate and rhythm, no murmurs Abd: soft, non-tender, non-distended Ext: 2+ edema of legs bilaterally, also edematous hands Skin: warm/well-perfused Neuro: alert and oriented x3, no focal findings Psych: appropriate affect Objective Data Active Medications Acetaminophen (Acetaminophen 325 Mg Tablet) 650 mg PO Q6H PRN PRN Reason: Pain, Mild 1-3,fever,headache Last Admin: 11/14/24 08:55 Dose: 650 mg Documented By: ZARINA Aripiprazole (Aripiprazole 2 Mg Tablet) 2 mg PO DAILY REPLACED BY [facility] Last Admin: 11/14/24 08:42 Dose: 2 mg Documented By: ZARINA Atorvastatin Calcium (Atorvastatin Calcium 80 Mg Tablet) 80 mg PO DAILY REPLACED BY [facility] Last Admin: 11/14/24 08:41 Dose: 80 mg Documented By: ZARINA Bupropion HCl (Bupropion Hcl Xl 150 Mg Tab.Er.24h) 150 mg PO DAILY REPLACED BY [facility] Last Admin: 11/14/24 08:43 Dose: 150 mg Documented By: ZARINA Calcitriol (Calcitriol 0.25 Mcg Capsule) 0.25 mcg PO DAILY REPLACED BY [facility] Last Admin: 11/14/24 08:42 Dose: 0.25 mcg Documented By: ZARINA Calcium Carbonate (Calcium Carbonate 750 Mg Tab.Chew) 750 mg PO Q4H PRN PRN Reason: Heartburn Carvedilol (Carvedilol 25 Mg Tablet) 25 mg PO BID REPLACED BY [facility]; Protocol Last Admin: 11/14/24 08:42 Dose: 25 mg Documented By: ZARINA Clonidine HCl (Clonidine Hcl 0.1 Mg Tablet) 0.3 mg PO BID REPLACED BY [facility]; Protocol Last Admin: 11/14/24 08:41 Dose: 0.3 mg Documented By: ZARINA Dextrose (Dextrose 50 % 25 Gm/50 Ml Syringe) 25 gm IVPUSH Q15M PRN; Protocol PRN Reason: per Hypoglycemia Standing Ord. Last Admin: 11/13/24 08:36 Dose: 25 gm Documented By: ESTEPHANIE Glucose (Glucose Gel 15 Gm Gel..Gram.) 15 gm PO Q15M PRN; Protocol PRN Reason: per Hypoglycemia Standing Ord. Last Admin: 11/12/24 06:12 Dose: 15 gm Documented By: CYRIL Hydralazine HCl (Hydralazine Hcl 50 Mg Tablet) 100 mg PO TID REPLACED BY [facility]; Protocol Last Admin: 11/14/24 08:42 Dose: 100 mg Documented By: ZARINA Desmopressin Acetate 20 mcg/ (Sodium Chloride) 55 mls @ 100 mls/hr IV ONCE PRN PRN Reason: 30 min prior to renal biopsy Bumetanide 25 mg/ IV (Miscellaneous Supplies) 100 mls @ 4 mls/hr IVCONT .Q24H REPLACED BY [facility] Last Admin: 11/14/24 11:59 Dose: 1 mg/hr, 4 mls/hr Documented By: ZARINA Insulin Human Lispro (Insulin Lispro 100 Unit/Ml 3 Ml Vial) 0 unit SUBCUT QIDACHS REPLACED BY [facility]; Protocol Last Admin: 11/14/24 12:10 Dose: Not Given Documented By: ZARINA Non-Admin Reason: No Insulin Coverage Isosorbide Dinitrate (Isosorbide Dinitrate 20 Mg Tablet) 20 mg PO TID@0800,1300,1800 REPLACED BY [facility]; Protocol Last Admin: 11/14/24 08:43 Dose: 20 mg Documented By: ZARINA Labetalol HCl (Labetalol Hcl 100 Mg/20 Ml Vial) 10 mg IVPUSH Q4H PRN PRN Reason: BP > 170 Last Admin: 11/12/24 03:00 Dose: 10 mg Documented By: CYRIL Magnesium Hydroxide (Milk Of Magnesia 30 Ml Oral.Susp) 30 ml PO DAILY PRN PRN Reason: Constipation Melatonin (Melatonin 3 Mg Tablet) 6 mg PO BEDTIME PRN PRN Reason: Insomnia Last Admin: 11/13/24 23:42 Dose: 6 mg Documented By: SERAFIN Mirtazapine (Mirtazapine 15 Mg Tablet) 15 mg PO BEDTIME REPLACED BY [facility] Last Admin: 11/13/24 20:34 Dose: 15 mg Documented By: SERAFIN Nifedipine (Nifedipine Er 30 Mg Tab.Er.24) 60 mg PO DAILY REPLACED BY [facility]; Protocol Last Admin: 11/14/24 08:43 Dose: 60 mg Documented By: ZARINA Ondansetron HCl (Ondansetron Hcl 4 Mg/2 Ml Vial) 4 mg IVPUSH Q8H PRN PRN Reason: Nausea and Vomiting Sertraline HCl (Sertraline Hcl 50 Mg Tablet) 50 mg PO DAILY REPLACED BY [facility] Last Admin: 11/14/24 08:42 Dose: 50 mg Documented By: ZARINA Sevelamer Carbonate (Sevelamer Carbonate Tablet 800 Mg Tablet) 800 mg PO TIDWM REPLACED BY [facility] Last Admin: 11/14/24 08:43 Dose: 800 mg Documented By: ZARINA Sodium Bicarbonate (Sodium Bicarbonate 650 Mg Tablet) 1,300 mg PO BID REPLACED BY [facility] Last Admin: 11/14/24 08:42 Dose: 1,300 mg Documented By: ZARINA Sodium Chloride (0.9 % Sodium Chloride Flush 3 Ml Syringe) 3 ml IVFLUSH QSHIFT REPLACED BY [facility] Last Admin: 11/14/24 08:40 Dose: 3 ml Documented By: ZARINA Sodium Polystyrene Sulfonate (Sodium Polystyrene Sulfon/Sorb 15 Gm/60 Ml Oral.Susp) 30 gm PO DAILY REPLACED BY [facility] Spironolactone (Spironolactone 25 Mg Tablet) 25 mg PO DAILY REPLACED BY [facility]; Protocol Last Admin: 11/12/24 12:54 Dose: 25 mg Documented By: DENISE Trazodone HCl (Trazodone Hcl 50 Mg Tablet) 50 mg PO BEDTIME REPLACED BY [facility] Last Admin: 11/13/24 20:34 Dose: 50 mg Documented By: SERAFIN Labs 11/14/24 06:25 11/14/24 06:25 Labs: Laboratory Results - last 24 hr 11/12/24 11/13/24 11/13/24 11:27 15:42 20:03 MCV MCH MCHC RDW Plt Count MPV Absolute Nucleated RBC Nucleated RBC % (auto) Absolute Retic Percent Retic Immature Retic Fraction Retic Hgb Equivalent Anion Gap Estim Creat Clear Calc Estimated GFR POC Glucose 126 H 132 H Random Glucose Calcium Magnesium B-Natriuretic Peptide Total Protein (PEP) 4.8 L Albumin (PEP) 2.3 L Gxfik-7-Etmvkwnbg 0.3 Zpknf-9-Uggxmnbpq 0.8 Oias-2-Mselxfei 0.3 L Zefc-0-Uvnopdhf 0.3 Gamma Globulins 0.8 Abnorm Protein Band 1 0.2 H PEP Interpretation SEE NOTE 11/14/24 11/14/24 11/14/24 06:25 06:56 07:40 MCV 90.8 MCH 29.6 MCHC 32.6 RDW 14.9 Plt Count 131 L MPV 11.4 Absolute Nucleated RBC 0.000 Nucleated RBC % (auto) 0.0 Absolute Retic 0.021 L Percent Retic 0.8 Immature Retic Fraction 8.9 Retic Hgb Equivalent 33.4 Anion Gap 13 Estim Creat Clear Calc 12.6 Estimated GFR 8 POC Glucose 62 95 Random Glucose 66 Calcium 7.7 L Magnesium 1.7 B-Natriuretic Peptide 538 H Total Protein (PEP) Albumin (PEP) Aqtlf-8-Yhscabrhi Jaxbc-6-Ijygnpyxf Wpqa-4-Iwarftzs Gxkr-1-Bcnbztdr Gamma Globulins Abnorm Protein Band 1 PEP Interpretation 11/14/24 10:47 MCV MCH MCHC RDW Plt Count MPV Absolute Nucleated RBC Nucleated RBC % (auto) Absolute Retic Percent Retic Immature Retic Fraction Retic Hgb Equivalent Anion Gap Estim Creat Clear Calc Estimated GFR POC Glucose 98 Random Glucose Calcium Magnesium B-Natriuretic Peptide Total Protein (PEP) Albumin (PEP) Mugoe-4-Zpauoejgp Gmrlm-0-Qidpkjktb Gpjp-5-Twdfykpa Pejv-7-Egqadqmd Gamma Globulins Abnorm Protein Band 1 PEP Interpretation Assessment and Plan (1) Acute heart failure: Status: Inactive Assessment and Plan: d4 for 59yo M with RACHEL on CPAP, HF with mildly reduced EF, DM2, HTN, HLD, and CKD5 with nephrotic-range proteinuria likely due to diabetic nephropathy sent in by his relations mgr, Dr Wily Mims, for worsening renal function in the setting of peripheral edema of the legs and hands along with orthopnea and generalized weakness. Last admitted here 10/21-10/26/24 for CHF exacerbation/volume overload. hypervolemia MARII/CKD5 nephrotic syndrome acute-chronic HF with mildly reduced EF - continue bumetanide drip 1 mg/hr and also got metolazone 10 mg 11/13 and 11/14 - monitor BNP/BMP/Mg + wts/I+O, Nephrology following, Cardiology consulted - renal doppler to assess for TAMMY negative - CT-guided renal biopsy deferred to 11/16, will need ddAVP 20 mcg IV 30 prior due to risk of uremic bleeding - screen for light chain amyloidosis: SPEP with faint M-spike in gamma globulin region; BOWEN, UPEP, and sFLCR pending - continue sevelamer, calcitriol, sodium bicarbonate, Kayexelate - continue carvedilol, hydralazine, nifedipine; increase clonidine and Isordil; d/c'ed spironolactone - updated TTE to check for progressive LV dysfunction; no significant change from 08/21 to 11/12 and atrial pressures are normal suggestive of hypervolemia driven more by nephrotic syndrome than HF and Cardiology has signed off troponin indeterminate - flat, likely due to CHF HLD - continue statin mood disorder - continue aripiprazole, bupropin, clonidine, mirtazapine, sertraline DM2 - correction-dose lispro RA - continue leflunomide, sulfasalazine VTE ppx - SCDs, hold heparin for renal biopsy dispo - eventual home with [facility] In my clinical judgment, the patient requires continued inpatient hospitalization for the following reasons: IV diuresis, renal biopsy Total time managing care of this patient today: 40 minutes. Quality Stroke Does the patient have a stroke diagnosis?: No VTE Prior VTE?: No VTE Risk Level:: Medical - moderate - high VTE Device Contraindication: N/A - Device Ordered VTE Drug Contraindication: Treatment Not Indicated
[2024-11-14 14:29] LABS: Iron 46 mcg/dL (45-160); Lactate Dehydrogenase 198 U/L (118-273); Percent Iron Saturation 35 % (15-50); Total Iron Binding Capacity 131 mcg/dL (228-428); Unsaturated Iron Binding 85 ug/dL
[2024-11-14 14:43] LABS: Ferritin 390 ng/mL (20-250)
--- NOTE | 2024-11-14 16:01 | P.PNNP_ITS ---
Subjective Subjective Date of Service: 11/14/24 Principal diagnosis: Fluid overload Interval history: diuresing well, negative 5.8L thus far still has leg and hand edema but is improving Blood pressures are also improving Physical Exam 2 Vital Signs: Vital Signs: Last Vital Signs Temp 97.3 F 11/14/24 15:27 Pulse 64 11/14/24 15:27 Resp 18 11/14/24 15:27 BP 148/72 H 11/14/24 15:27 Pulse Ox 94 11/14/24 15:27 O2 Del Method Room Air 11/14/24 15:27 BMI result Body Mass Index 35.1 General: Middle-aged male not in acute distress, comfortably sleeping in the bed Nutritional Appearance: well nourished and overweight Eyes: appearance normal, both eyes and all related structures; Alignment and Position: alignment normal and position normal Neck: No lymphadenopathy, no thyromegaly Resp: bilateral air entry equal, occasional added sounds present Cardio: Regular rate, regular rhythm; Heart sounds: S1 normal heart sound present and S2 normal heart sound present, edema present but better GI: soft, nontender, no guarding, no hepatosplenomegaly : bladder normal to inspection, bladder normal to palpation, no renal angle tenderness Skin: no rashes or lesions noted and elasticity normal Neuro: oriented to person, oriented to place, oriented to time and moves all extremities Objective Data Labs 11/14/24 06:25 11/14/24 06:25 Labs: Laboratory Results - last 24 hr 11/12/24 11/13/24 11/14/24 11:27 20:03 06:25 WBC 3.9 L RBC 2.60 L Hgb 7.7 L Hct 23.6 L MCV 90.8 MCH 29.6 MCHC 32.6 RDW 14.9 Plt Count 131 L MPV 11.4 Absolute Nucleated RBC 0.000 Nucleated RBC % (auto) 0.0 Absolute Retic 0.021 L Percent Retic 0.8 Immature Retic Fraction 8.9 Retic Hgb Equivalent 33.4 Sodium 140 Potassium 4.2 Chloride 111 H Carbon Dioxide 20 L Anion Gap 13 BUN 81 H Creatinine 7.17 H* Estim Creat Clear Calc 12.6 Estimated GFR 8 POC Glucose 132 H Random Glucose 66 Calcium 7.7 L Magnesium 1.7 Iron 46 TIBC 131 L % Saturation 35 Unsat Iron Binding 85 Ferritin 390 H Lactate Dehydrogenase 198 B-Natriuretic Peptide 538 H Total Protein (PEP) 4.8 L Albumin (PEP) 2.3 L Acxas-2-Jattqhnrz 0.3 Rkbdp-0-Bukguqkwe 0.8 Lkeq-0-Ylcgonpl 0.3 L Mxdu-5-Aekpqyhg 0.3 Gamma Globulins 0.8 Abnorm Protein Band 1 0.2 H PEP Interpretation SEE NOTE 11/14/24 11/14/24 11/14/24 06:56 07:40 10:47 WBC RBC Hgb Hct MCV MCH MCHC RDW Plt Count MPV Absolute Nucleated RBC Nucleated RBC % (auto) Absolute Retic Percent Retic Immature Retic Fraction Retic Hgb Equivalent Sodium Potassium Chloride Carbon Dioxide Anion Gap BUN Creatinine Estim Creat Clear Calc Estimated GFR POC Glucose 62 95 98 Random Glucose Calcium Magnesium Iron TIBC % Saturation Unsat Iron Binding Ferritin Lactate Dehydrogenase B-Natriuretic Peptide Total Protein (PEP) Albumin (PEP) Fxjim-2-Jmqppaibh Aggro-7-Aukecgefs Jjha-5-Tofibrid Xrqy-0-Humwanum Gamma Globulins Abnorm Protein Band 1 PEP Interpretation Procedures Date of Service Date of Service: 11/14/24 Assessment & Plan Assessment and plan (1) CKD (chronic kidney disease) stage 4, GFR 15-29 ml/min: Status: Acute (2) CKD stage 5 due to type 2 diabetes mellitus: Status: Acute Plan Chronic kidney disease stage 5: No symptoms of uremia, edema improving with diuresis. No indication for renal replacement therapy at present. Continue diuresis with Bumex Possibly planned to undergo renal biopsy even sudden worsening in renal function over the period of 3-4 months with significant proteinuria Workup so far negative, MIGUEL, Anca, ds DNA, SPEP, UPEP, serum free light chains all normal, hepatitis panel negative. His chronic kidney disease is possibly secondary to diabetic kidney disease with poor control of blood sugars Keep the patient NPO after midnight on Saturday morning, for possible biopsy, please give DDAVP prior to biopsy. Hypertension: Patient's blood pressure was significantly high until yesterday, this morning it is fluctuating. Improve eyes in the fluid status with diuretics possibly we will help with better control of blood pressures Continue Isordil, nifedipine, clonidine, hydralazine, carvedilol along with metolazone for now. Time Spent With Patient Time: Total time managing care of this patient today ____ minutes. Progress Note: Quality Stroke Does the patient have a stroke diagnosis?: No
[2024-11-14 16:05] LABS: Glucose, Whole Blood 126 mg/dL (60-115)
[2024-11-14 20:20] LABS: Glucose, Whole Blood 134 mg/dL (60-115)
[2024-11-14] MEDS: Mirtazapine 15 MG TABLET PO (20:31)
[2024-11-14] MEDS: traZODone HCL 50 MG TABLET PO (20:31)
[2024-11-14] MEDS: Melatonin 3 MG TABLET 6 MG PO (23:25)
[2024-11-15] VITALS (11 sets, daily range): BP systolic 116–151; BP diastolic 62–71; PULSE 60–65; RESP 12–18; TEMP 36.3–36.8; O2SAT 92–95
[2024-11-15 07:43] LABS: Glucose, Whole Blood 70 mg/dL (60-115)
--- NOTE | 2024-11-15 07:51 | P.PNIM_ITS ---
Subjective Subjective Date of Service: 11/15/24 Interval History: Feeling better but reporting sore throat. No fevers, chills. No dysphagia, congestion, cough Denies sob. Feels edema is improved. Diuresing well. -8L during admission Review of Systems Review of Systems: Yes all other systems are reviewed and are negative Physical Exam 2 Vital Signs: Vital Signs: Last Vital Signs Temp 98.0 F 11/15/24 07:17 Pulse 62 11/15/24 07:17 Resp 18 11/15/24 07:17 BP 149/68 H 11/15/24 07:17 Pulse Ox 94 11/15/24 07:17 O2 Del Method Room Air 11/15/24 07:17 BMI result Body Mass Index 35.1 Gen: in no acute distress HEENT: sclera anicteric, moist mucus membranes Neck: supple Lungs: clear to auscultation bilaterally Heart: regular rate and rhythm, no murmurs Abd: soft, non-tender, non-distended Ext: 1+ edema of legs bilaterally, also edematous hands L>R Skin: warm/well-perfused Neuro: alert and oriented x3, no focal findings Psych: appropriate affect Objective Data Active Medications Acetaminophen (Acetaminophen 325 Mg Tablet) 650 mg PO Q6H PRN PRN Reason: Pain, Mild 1-3,fever,headache Last Admin: 11/14/24 23:24 Dose: 650 mg Documented By: SERAFIN Aripiprazole (Aripiprazole 2 Mg Tablet) 2 mg PO DAILY [facility] Last Admin: 11/14/24 08:42 Dose: 2 mg Documented By: ZARINA Atorvastatin Calcium (Atorvastatin Calcium 80 Mg Tablet) 80 mg PO DAILY [facility] Last Admin: 11/14/24 08:41 Dose: 80 mg Documented By: ZARINA Bupropion HCl (Bupropion Hcl Xl 150 Mg Tab.Er.24h) 150 mg PO DAILY [facility] Last Admin: 11/14/24 08:43 Dose: 150 mg Documented By: ZARINA Calcitriol (Calcitriol 0.25 Mcg Capsule) 0.25 mcg PO DAILY [facility] Last Admin: 11/14/24 08:42 Dose: 0.25 mcg Documented By: ZARINA Calcium Carbonate (Calcium Carbonate 750 Mg Tab.Chew) 750 mg PO Q4H PRN PRN Reason: Heartburn Carvedilol (Carvedilol 25 Mg Tablet) 25 mg PO BID [facility]; Protocol Last Admin: 11/14/24 20:31 Dose: 25 mg Documented By: SERAFIN Clonidine HCl (Clonidine Hcl 0.1 Mg Tablet) 0.3 mg PO BID [facility]; Protocol Last Admin: 11/14/24 20:30 Dose: 0.3 mg Documented By: SERAFIN Dextrose (Dextrose 50 % 25 Gm/50 Ml Syringe) 25 gm IVPUSH Q15M PRN; Protocol PRN Reason: per Hypoglycemia Standing Ord. Last Admin: 11/13/24 08:36 Dose: 25 gm Documented By: ESTEPHANIE Glucose (Glucose Gel 15 Gm Gel..Gram.) 15 gm PO Q15M PRN; Protocol PRN Reason: per Hypoglycemia Standing Ord. Last Admin: 11/12/24 06:12 Dose: 15 gm Documented By: SERRANX Hydralazine HCl (Hydralazine Hcl 50 Mg Tablet) 100 mg PO TID [facility]; Protocol Last Admin: 11/14/24 20:30 Dose: 100 mg Documented By: SERAFIN Desmopressin Acetate 20 mcg/ (Sodium Chloride) 55 mls @ 100 mls/hr IV ONCE PRN PRN Reason: 30 min prior to renal biopsy Bumetanide 25 mg/ IV (Miscellaneous Supplies) 100 mls @ 4 mls/hr IVCONT .Q24H [facility] Last Admin: 11/14/24 11:59 Dose: 1 mg/hr, 4 mls/hr Documented By: ZARINA Insulin Human Lispro (Insulin Lispro 100 Unit/Ml 3 Ml Vial) 0 unit SUBCUT QIDACHS [facility]; Protocol Last Admin: 11/15/24 07:23 Dose: Not Given Documented By: ZARINA Non-Admin Reason: No Insulin Coverage Isosorbide Dinitrate (Isosorbide Dinitrate 20 Mg Tablet) 20 mg PO TID@0800,1300,1800 [facility]; Protocol Last Admin: 11/14/24 18:09 Dose: 20 mg Documented By: PREETHI Labetalol HCl (Labetalol Hcl 100 Mg/20 Ml Vial) 10 mg IVPUSH Q4H PRN PRN Reason: BP > 170 Last Admin: 11/12/24 03:00 Dose: 10 mg Documented By: CYRIL Magnesium Hydroxide (Milk Of Magnesia 30 Ml Oral.Susp) 30 ml PO DAILY PRN PRN Reason: Constipation Melatonin (Melatonin 3 Mg Tablet) 6 mg PO BEDTIME PRN PRN Reason: Insomnia Last Admin: 11/14/24 23:25 Dose: 6 mg Documented By: SERAFIN Mirtazapine (Mirtazapine 15 Mg Tablet) 15 mg PO BEDTIME [facility] Last Admin: 11/14/24 20:31 Dose: 15 mg Documented By: SERAFIN Nifedipine (Nifedipine Er 30 Mg Tab.Er.24) 60 mg PO DAILY [facility]; Protocol Last Admin: 11/14/24 08:43 Dose: 60 mg Documented By: AZRINA Ondansetron HCl (Ondansetron Hcl 4 Mg/2 Ml Vial) 4 mg IVPUSH Q8H PRN PRN Reason: Nausea and Vomiting Sertraline HCl (Sertraline Hcl 50 Mg Tablet) 50 mg PO DAILY [facility] Last Admin: 11/14/24 08:42 Dose: 50 mg Documented By: ZARINA Sevelamer Carbonate (Sevelamer Carbonate Tablet 800 Mg Tablet) 800 mg PO TIDWM [facility] Last Admin: 11/14/24 16:42 Dose: 800 mg Documented By: ZARINA Sodium Bicarbonate (Sodium Bicarbonate 650 Mg Tablet) 1,300 mg PO BID [facility] Last Admin: 11/14/24 20:31 Dose: 1,300 mg Documented By: SERAFIN Sodium Chloride (0.9 % Sodium Chloride Flush 3 Ml Syringe) [facility] Last Admin: 11/15/24 01:08 Dose: Not Given Documented By: SERAFIN Non-Admin Reason: IV Running Sodium Polystyrene Sulfonate (Sodium Polystyrene Sulfon/Sorb 15 Gm/60 Ml Oral.Susp) 30 gm PO DAILY [facility] Last Admin: 11/14/24 14:25 Dose: Not Given Documented By: ZARINA Non-Admin Reason: request called x 2 to pharmacy and never sent Spironolactone (Spironolactone 25 Mg Tablet) 25 mg PO DAILY [facility]; Protocol Last Admin: 11/12/24 12:54 Dose: 25 mg Documented By: DENISE Trazodone HCl (Trazodone Hcl 50 Mg Tablet) 50 mg PO BEDTIME [facility] Last Admin: 11/14/24 20:31 Dose: 50 mg Documented By: SERAFIN Labs 11/15/24 06:42 11/15/24 06:42 Labs: Laboratory Results - last 24 hr 11/14/24 11/14/24 11/14/24 06:25 10:47 15:29 Absolute Retic 0.021 L Percent Retic 0.8 Immature Retic Fraction 8.9 Retic Hgb Equivalent 33.4 POC Glucose 98 126 H Iron 46 TIBC 131 L % Saturation 35 Unsat Iron Binding 85 Ferritin 390 H Lactate Dehydrogenase 198 11/14/24 11/15/24 20:14 07:15 Absolute Retic Percent Retic Immature Retic Fraction Retic Hgb Equivalent POC Glucose 134 H 70 Iron TIBC % Saturation Unsat Iron Binding Ferritin Lactate Dehydrogenase Assessment and Plan (1) Acute heart failure: Status: Inactive Assessment and Plan: d4 for 59yo M with RACHEL on CPAP, HF with mildly reduced EF, DM2, HTN, HLD, and CKD5 with nephrotic-range proteinuria likely due to diabetic nephropathy sent in by his leaflet distributor, Dr Wily Mims, for worsening renal function in the setting of peripheral edema of the legs and hands along with orthopnea and generalized weakness. Last admitted here 10/21-10/26/24 for CHF exacerbation/volume overload. hypervolemia MARII/CKD5 nephrotic syndrome acute-chronic HF with mildly reduced EF - bumetanide drip 1 mg/hr and also got metolazone 10 mg 11/13 and 11/14. 11/15 Change to 2mg IV bumex bid and add metolazone 5mg daily per nephrology - monitor BNP/BMP/Mg + wts/I+O, Nephrology following, Cardiology consulted - renal doppler to assess for TAMMY negative - CT-guided renal biopsy deferred to 11/16, will need ddAVP 20 mcg IV 30 prior due to risk of uremic bleeding - screen for light chain amyloidosis: SPEP with faint M-spike in gamma globulin region; BOWEN, UPEP, and sFLCR pending - continue sevelamer, calcitriol, sodium bicarbonate, Kayexelate - continue carvedilol, hydralazine, nifedipine; increase clonidine and Isordil; d/c'ed spironolactone - updated TTE to check for progressive LV dysfunction; no significant change from 08/21 to 11/12 and atrial pressures are normal suggestive of hypervolemia driven more by nephrotic syndrome than HF and Cardiology has signed off troponin indeterminate - flat, likely due to CHF HLD - continue statin mood disorder - continue aripiprazole, bupropin, clonidine, mirtazapine, sertraline DM2 - correction-dose lispro RA - continue leflunomide, sulfasalazine VTE ppx - SCDs, hold heparin for renal biopsy dispo - eventual home with VNA In my clinical judgment, the patient requires continued inpatient hospitalization for the following reasons: IV diuresis, renal biopsy Total time managing care of this patient today: 40 minutes. Quality Stroke Does the patient have a stroke diagnosis?: No VTE Prior VTE?: No VTE Risk Level:: Medical - moderate - high VTE Device Contraindication: N/A - Device Ordered VTE Drug Contraindication: Treatment Not Indicated
[2024-11-15] MEDS: 0.9 % Sodium Chloride Flush 3 ML SYRINGE IVFLUSH ×3 (08:12→20:20)
[2024-11-15] MEDS: Sevelamer Carbonate Tablet 800 MG TABLET PO ×3 (08:12→17:19)
[2024-11-15] MEDS: Isosorbide Dinitrate 20 MG TABLET PO ×3 (08:12→18:16)
[2024-11-15 08:20] LABS: Hemoglobin 7.1 g/dl (14.0-18.0); Mean Corpuscular HGB Conc 32.3 g/dl (31.0-36.0); Mean Corpuscular Hemoglobin 29.1 pg (27.0-33.0); Mean Corpuscular Volume 90.2 fL (80.0-98.0); Mean Platelet Volume 11.6 fL (9.4-12.4); Platelet Count 130 X10*3/uL (160-400); Red Blood Count 2.44 X10*6/uL (4.60-5.80); Red Cell Distribution Width 14.7 % (11.0-16.0); White Blood Count 3.6 X10*3/uL (4.8-10.8)
[2024-11-15 08:42] LABS: Anion Gap 13 (12-20); B Type Natriuretic Peptide 328 pg/mL (<100); Blood Urea Nitrogen 88 mg/dL (9-16); Calcium 7.8 mg/dL (8.4-10.2); Carbon Dioxide 22 mmol/L (22-29); Chloride 108 mmol/L (96-108); Estimated Glomerular Filt Rate 7; Glucose Random 67 mg/dL (60-115); Magnesium 1.7 mg/dL (1.6-2.6); Potassium 4.3 mmol/L (3.3-5.1); Sodium 139 mmol/L (135-145)
[2024-11-15 09:11] LABS: Folate 3.8 ng/mL (> or = 4.0); Vitamin B12 471 pg/mL (200-900)
[2024-11-15] MEDS: Sertraline HCL 50 MG TABLET PO (09:29)
[2024-11-15] MEDS: calcitrioL 0.25 MCG CAPSULE PO (09:29)
[2024-11-15] MEDS: Sodium Bicarbonate 650 MG TABLET 1300 MG PO ×2 (09:29→20:19)
[2024-11-15] MEDS: buPROPion HCl XL 150 MG TAB.ER.24H PO (09:29)
[2024-11-15] MEDS: Atorvastatin Calcium 80 MG TABLET PO (09:30)
[2024-11-15] MEDS: cloNIDine HCL 0.1 MG TABLET 0.3 MG PO ×2 (09:31→20:19)
[2024-11-15] MEDS: hydrALAZINE HCl 50 MG TABLET 100 MG PO ×3 (09:32→20:19)
[2024-11-15] MEDS: ARIPiprazole 2 MG TABLET PO (09:32)
[2024-11-15] MEDS: NIFEdipine ER 30 MG TAB.ER.24 60 MG PO (09:32)
[2024-11-15] MEDS: carvediloL 25 MG TABLET PO ×2 (09:32→20:20)
--- NOTE | 2024-11-15 11:14 | P.PNNP_ITS ---
Subjective Subjective Date of Service: 11/15/24 Principal diagnosis: Fluid overload Interval history: Sleeping this morning but nurse said that he was able to have a good conversation with her and was complaining of throat pain Blood pressure is better controlled Fluid balance net-7.5 L since admission, Physical Exam 2 Vital Signs: Vital Signs: Last Vital Signs Temp 98.0 F 11/15/24 07:17 Pulse 62 11/15/24 07:17 Resp 18 11/15/24 07:17 BP 141/70 H 11/15/24 09:32 Pulse Ox 94 11/15/24 07:17 O2 Del Method Room Air 11/15/24 07:17 BMI result Body Mass Index 35.1 General: Not in any acute distress, ill appearing and tired appearing Nutritional Appearance: well nourished and overweight Eyes: appearance normal, both eyes and all related structures; Alignment and Position: alignment normal and position normal Neck: No lymphadenopathy, no thyromegaly Resp: bilateral air entry equal, now added sounds present Cardio: Regular rate, regular rhythm; Heart sounds: S1 normal heart sound present and S2 normal heart sound present, edema improving GI: soft, nontender, no guarding, no hepatosplenomegaly : bladder normal to inspection, bladder normal to palpation, no renal angle tenderness Skin: no rashes or lesions noted and elasticity normal Neuro: Sleeping Objective Data Labs 11/15/24 06:42 11/15/24 06:42 Labs: Laboratory Results - last 24 hr 11/14/24 11/14/24 11/14/24 06:25 15:29 20:14 WBC RBC Hgb Hct MCV MCH MCHC RDW Plt Count MPV Absolute Nucleated RBC Nucleated RBC % (auto) Sodium Potassium Chloride Carbon Dioxide Anion Gap BUN Creatinine Estim Creat Clear Calc Estimated GFR POC Glucose 126 H 134 H Random Glucose Calcium Magnesium Iron 46 TIBC 131 L % Saturation 35 Unsat Iron Binding 85 Ferritin 390 H Lactate Dehydrogenase 198 B-Natriuretic Peptide Vitamin B12 Folate Blood Type Antibody Screen 11/15/24 11/15/24 06:42 07:15 WBC 3.6 L RBC 2.44 L Hgb 7.1 L Hct 22.0 L MCV 90.2 MCH 29.1 MCHC 32.3 RDW 14.7 Plt Count 130 L MPV 11.6 Absolute Nucleated RBC 0.000 Nucleated RBC % (auto) 0.0 Sodium 139 Potassium 4.3 Chloride 108 Carbon Dioxide 22 Anion Gap 13 BUN 88 H Creatinine 7.54 H* Estim Creat Clear Calc 12.0 Estimated GFR 7 POC Glucose 70 Random Glucose 67 Calcium 7.8 L Magnesium 1.7 Iron TIBC % Saturation Unsat Iron Binding Ferritin Lactate Dehydrogenase B-Natriuretic Peptide 328 H Vitamin B12 471 Folate 3.8 L Blood Type A Positive Antibody Screen NEGATIVE Procedures Date of Service Date of Service: 11/15/24 Assessment & Plan Assessment and plan (1) Hypertension: Status: Acute (2) Cardiorenal syndrome with renal failure: Status: Acute (3) CKD stage 5 due to type 2 diabetes mellitus: Status: Acute Plan Chronic kidney disease stage 5: No symptoms of uremia, edema improving with diuresis. No indication for renal replacement therapy at present. Stop the continuous Bumex drip and switch to Bumex 2 mg IV b.i.d. and look for response. He is net fluid balance net-7.5 L since admission, his overall volume status has improved and his creatinine is also going up, 7.54 this morning. Possibly planned to undergo renal biopsy even sudden worsening in renal function over the period of 3-4 months with significant proteinuria Workup so far negative, MIGUEL, Anca, ds DNA, SPEP, UPEP, serum free light chains all normal, hepatitis panel negative. His chronic kidney disease is possibly secondary to diabetic kidney disease with poor control of blood sugars Keep the patient NPO after midnight for possible biopsy, please give DDAVP prior to biopsy. Hypertension: Patient's blood pressure is better controlled with improved volume status with continued diuresis Continue Isordil, nifedipine, clonidine, hydralazine, carvedilol along with metolazone for now. Time Spent With Patient Time: Total time managing care of this patient today ____ minutes. Progress Note: Quality Stroke Does the patient have a stroke diagnosis?: No
[2024-11-15 11:31] LABS: Glucose, Whole Blood 115 mg/dL (60-115)
[2024-11-15] MEDS: Bumetanide 1 MG/4 ML VIAL 2 MG IVPUSH ×2 (12:48→17:17)
[2024-11-15 13:12] LABS: IDNOW Serial# 55D5AD1C; Strep A Nucleic Acid Negative (Negative)
[2024-11-15] MEDS: metOLazone 5 MG TABLET PO (15:23)
[2024-11-15 15:44] LABS: Glucose, Whole Blood 130 mg/dL (60-115)
[2024-11-15] MEDS: Mirtazapine 15 MG TABLET PO (20:19)
[2024-11-15] MEDS: traZODone HCL 50 MG TABLET PO (20:19)
[2024-11-15 21:04] LABS: Glucose, Whole Blood 151 mg/dL (60-115)
[2024-11-15] MEDS: Melatonin 3 MG TABLET 6 MG PO (23:47)
[2024-11-16] VITALS (24 sets, daily range): BP systolic 114–148; BP diastolic 45–72; PULSE 63–74; RESP 10–20; TEMP 36.2–37.6; O2SAT 92–100
[2024-11-16 06:28] LABS: MANUAL DIFF FLAG NO
[2024-11-16 06:32] LABS: Basophils Percent Auto 0.2 % (0-2); Eosinophils Absolute Auto 0.3 X10*3/uL (0.0-0.4); Eosinophils Percent Auto 6.6 % (0-4); Hematocrit 23.2 % (42.0-52.0); Hemoglobin 7.4 g/dl (14.0-18.0); Imm Gran Abs Auto 0.01 X10*3/uL (0.00-0.03); Imm Gran Pct Auto 0.2 % (0.0-0.4); Lymphocytes Absolute Auto 1.1 X10*3/uL (1.2-4.9); Lymphocytes Percent Auto 25.2 % (20-40); Mean Corpuscular HGB Conc 31.9 g/dl (31.0-36.0); Mean Corpuscular Hemoglobin 28.9 pg (27.0-33.0); Mean Corpuscular Volume 90.6 fL (80.0-98.0); Monocytes Absolute Auto 0.3 X10*3/uL (0.1-1.2); Monocytes Percent Auto 7.5 % (2-11); Neutrophils Absolute Auto 2.6 x10*3/uL (2.0-8.3); Neutrophils Percent Auto 60.3 % (45-73); Platelet Count 134 X10*3/uL (160-400); Red Blood Count 2.56 X10*6/uL (4.60-5.80); Red Cell Distribution Width 14.6 % (11.0-16.0); White Blood Count 4.2 X10*3/uL (4.8-10.8)
[2024-11-16 06:48] LABS: Anion Gap 17 (12-20); Blood Urea Nitrogen 99 mg/dL (9-16); Calcium 7.6 mg/dL (8.4-10.2); Carbon Dioxide 20 mmol/L (22-29); Chloride 106 mmol/L (96-108); Creatinine Clr Calc Pharmacy 11.4; Estimated Glomerular Filt Rate 7; Glucose Random 65 mg/dL (60-115); Potassium 4.8 mmol/L (3.3-5.1); Sodium 138 mmol/L (135-145)
[2024-11-16 07:25] LABS: Glucose, Whole Blood 65 mg/dL (60-115)
[2024-11-16] MEDS: ARIPiprazole 2 MG TABLET PO (08:27)
[2024-11-16] MEDS: Sodium Bicarbonate 650 MG TABLET 1300 MG PO ×2 (08:27→20:12)
[2024-11-16] MEDS: buPROPion HCl XL 150 MG TAB.ER.24H PO (08:28)
[2024-11-16] MEDS: calcitrioL 0.25 MCG CAPSULE PO (08:28)
[2024-11-16] MEDS: cloNIDine HCL 0.1 MG TABLET 0.3 MG PO ×2 (08:28→20:12)
[2024-11-16] MEDS: Sertraline HCL 50 MG TABLET PO (08:28)
[2024-11-16] MEDS: carvediloL 25 MG TABLET PO ×2 (08:28→20:13)
[2024-11-16] MEDS: Atorvastatin Calcium 80 MG TABLET PO (08:28)
[2024-11-16] MEDS: NIFEdipine ER 30 MG TAB.ER.24 60 MG PO (08:29)
[2024-11-16] MEDS: Sevelamer Carbonate Tablet 800 MG TABLET PO ×2 (08:29→15:13)
[2024-11-16] MEDS: Bumetanide 1 MG/4 ML VIAL 2 MG IVPUSH ×2 (08:30→18:01)
[2024-11-16] MEDS: hydrALAZINE HCl 50 MG TABLET 100 MG PO ×3 (08:30→20:12)
[2024-11-16] MEDS: metOLazone 5 MG TABLET PO (08:30)
[2024-11-16] MEDS: 0.9 % Sodium Chloride Flush 3 ML SYRINGE IVFLUSH ×3 (08:30→20:16)
[2024-11-16] MEDS: Isosorbide Dinitrate 20 MG TABLET PO ×3 (08:30→18:01)
--- NOTE | 2024-11-16 09:09 | HO.PM.IMPN ---
Subjective Subjective Date of Service: 11/17/24 Interval History: c/o pain in hand, left hand swelling Physical Exam Vital Signs: Vital Signs: Last Vital Signs Temp 97.6 F 11/16/24 07:54 Pulse 66 11/16/24 08:28 Resp 20 11/16/24 07:54 BP 141/62 H 11/16/24 08:30 Pulse Ox 92 11/16/24 07:54 O2 Del Method Room Air 11/16/24 07:54 BMI result Body Mass Index 35.1 Const: Other: General: AO X 3, no acute distress Resp: CTA bilateral CVS: S1,S2,RRR GI: +BS, NT, no distention Skin: No rash ext: swelling to left arm signficantly much bigger than the other sise, trace leg edema Neuro: motor grossly intact Psych: appropriate affect Objective Data Active Medications Acetaminophen (Acetaminophen 325 Mg Tablet) 650 mg PO Q6H PRN PRN Reason: Pain, Mild 1-3,fever,headache Last Admin: 11/14/24 23:24 Dose: 650 mg Documented By: SERAFIN Aripiprazole (Aripiprazole 2 Mg Tablet) 2 mg PO DAILY [facility] Last Admin: 11/16/24 08:27 Dose: 2 mg Documented By: BECKIE Atorvastatin Calcium (Atorvastatin Calcium 80 Mg Tablet) 80 mg PO DAILY [facility] Last Admin: 11/16/24 08:28 Dose: 80 mg Documented By: BECKIE Benzocaine (Throat Lozenge, Medicated Lozenge) 1 lozenge MUCOUS MEM Q2H PRN PRN Reason: Sore Throat Bumetanide (Bumetanide 1 Mg/4 Ml Vial) 2 mg IVPUSH BID@0900,1700 [facility]; Protocol Last Admin: 11/16/24 08:30 Dose: 2 mg Documented By: BECKIE Bupropion HCl (Bupropion Hcl Xl 150 Mg Tab.Er.24h) 150 mg PO DAILY [facility] Last Admin: 11/16/24 08:28 Dose: 150 mg Documented By: BECKIE Calcitriol (Calcitriol 0.25 Mcg Capsule) 0.25 mcg PO DAILY [facility] Last Admin: 11/16/24 08:28 Dose: 0.25 mcg Documented By: BECKIE Calcium Carbonate (Calcium Carbonate 750 Mg Tab.Chew) 750 mg PO Q4H PRN PRN Reason: Heartburn Carvedilol (Carvedilol 25 Mg Tablet) 25 mg PO BID [facility]; Protocol Last Admin: 11/16/24 08:28 Dose: 25 mg Documented By: BECKIE Clonidine HCl (Clonidine Hcl 0.1 Mg Tablet) 0.3 mg PO BID [facility]; Protocol Last Admin: 11/16/24 08:28 Dose: 0.3 mg Documented By: BECKIE Dextrose (Dextrose 50 % 25 Gm/50 Ml Syringe) 25 gm IVPUSH Q15M PRN; Protocol PRN Reason: per Hypoglycemia Standing Ord. Last Admin: 11/13/24 08:36 Dose: 25 gm Documented By: ESTEPHANIE Glucose (Glucose Gel 15 Gm Gel..Gram.) 15 gm PO Q15M PRN; Protocol PRN Reason: per Hypoglycemia Standing Ord. Last Admin: 11/12/24 06:12 Dose: 15 gm Documented By: CYRIL Hydralazine HCl (Hydralazine Hcl 50 Mg Tablet) 100 mg PO TID [facility]; Protocol Last Admin: 11/16/24 08:30 Dose: 100 mg Documented By: BECKIE Desmopressin Acetate 20 mcg/ (Sodium Chloride) 55 mls @ 100 mls/hr IV ONCE PRN PRN Reason: 30 min prior to renal biopsy Insulin Human Lispro (Insulin Lispro 100 Unit/Ml 3 Ml Vial) 0 unit SUBCUT QIDACHS [facility]; Protocol Last Admin: 11/16/24 07:27 Dose: Not Given Documented By: BECKIE Non-Admin Reason: No Insulin Coverage Isosorbide Dinitrate (Isosorbide Dinitrate 20 Mg Tablet) 20 mg PO TID@0800,1300,1800 [facility]; Protocol Last Admin: 11/16/24 08:30 Dose: 20 mg Documented By: BECKIE Labetalol HCl (Labetalol Hcl 100 Mg/20 Ml Vial) 10 mg IVPUSH Q4H PRN PRN Reason: BP > 170 Last Admin: 11/12/24 03:00 Dose: 10 mg Documented By: CYRIL Magnesium Hydroxide (Milk Of Magnesia 30 Ml Oral.Susp) 30 ml PO DAILY PRN PRN Reason: Constipation Melatonin (Melatonin 3 Mg Tablet) 6 mg PO BEDTIME PRN PRN Reason: Insomnia Last Admin: 11/15/24 23:47 Dose: 6 mg Documented By: SURESH Metolazone (Metolazone 5 Mg Tablet) 5 mg PO DAILY [facility] Last Admin: 11/16/24 08:30 Dose: 5 mg Documented By: BECKIE Mirtazapine (Mirtazapine 15 Mg Tablet) 15 mg PO BEDTIME [facility] Last Admin: 11/15/24 20:19 Dose: 15 mg Documented By: SURESH Nifedipine (Nifedipine Er 30 Mg Tab.Er.24) 60 mg PO DAILY [facility]; Protocol Last Admin: 11/16/24 08:29 Dose: 60 mg Documented By: BECKIE Ondansetron HCl (Ondansetron Hcl 4 Mg/2 Ml Vial) 4 mg IVPUSH Q8H PRN PRN Reason: Nausea and Vomiting Sertraline HCl (Sertraline Hcl 50 Mg Tablet) 50 mg PO DAILY [facility] Last Admin: 11/16/24 08:28 Dose: 50 mg Documented By: BECKIE Sevelamer Carbonate (Sevelamer Carbonate Tablet 800 Mg Tablet) 800 mg PO TIDWM [facility] Last Admin: 11/16/24 08:29 Dose: 800 mg Documented By: BECKIE Sodium Bicarbonate (Sodium Bicarbonate 650 Mg Tablet) 1,300 mg PO BID [facility] Last Admin: 11/16/24 08:27 Dose: 1,300 mg Documented By: BECKIE Sodium Chloride (0.9 % Sodium Chloride Flush 3 Ml Syringe) 3 ml IVFLUSH QSHIFT [facility] Last Admin: 11/16/24 08:30 Dose: 3 ml Documented By: BECKIE Sodium Polystyrene Sulfonate (Sodium Polystyrene Sulfon/Sorb 15 Gm/60 Ml Oral.Susp) 30 gm PO DAILY [facility] Last Admin: 11/16/24 08:31 Dose: Not Given Documented By: BECKIE Non-Admin Reason: Physician Held Med Spironolactone (Spironolactone 25 Mg Tablet) 25 mg PO DAILY [facility]; Protocol Last Admin: 11/12/24 12:54 Dose: 25 mg Documented By: DENISE Trazodone HCl (Trazodone Hcl 50 Mg Tablet) 50 mg PO BEDTIME [facility] Last Admin: 11/15/24 20:19 Dose: 50 mg Documented By: SURESH Labs 11/17/24 08:54 11/17/24 08:54 Labs: Laboratory Results - last 24 hr 11/15/24 11/15/24 11/15/24 06:42 11:26 12:38 MCV MCH MCHC RDW Plt Count MPV Immature Gran % (Auto) Neut % (Auto) Lymph % (Auto) [place] % (Auto) Eos % (Auto) Baso % (Auto) Lymph # (Auto) [place] # (Auto) Eos # (Auto) Baso # (Auto) Abs Immat Gran (auto) Absolute Neuts (auto) Absolute Nucleated RBC Nucleated RBC % (auto) Anion Gap Estim Creat Clear Calc Estimated GFR POC Glucose 115 Random Glucose Calcium Vitamin B12 471 Folate 3.8 L S. pyogenes GrpA CHRIS Negative 11/15/24 11/15/24 11/16/24 15:37 20:54 05:57 MCV 90.6 MCH 28.9 MCHC 31.9 RDW 14.6 Plt Count 134 L MPV 11.0 Immature Gran % (Auto) 0.2 Neut % (Auto) 60.3 Lymph % (Auto) 25.2 [place] % (Auto) 7.5 Eos % (Auto) 6.6 H Baso % (Auto) 0.2 Lymph # (Auto) 1.1 L [place] # (Auto) 0.3 Eos # (Auto) 0.3 Baso # (Auto) 0.0 Abs Immat Gran (auto) 0.01 Absolute Neuts (auto) 2.6 Absolute Nucleated RBC 0.000 Nucleated RBC % (auto) 0.0 Anion Gap 17 Estim Creat Clear Calc 11.4 Estimated GFR 7 POC Glucose 130 H 151 H Random Glucose 65 Calcium 7.6 L Vitamin B12 Folate S. pyogenes GrpA CHRIS 11/16/24 07:21 MCV MCH MCHC RDW Plt Count MPV Immature Gran % (Auto) Neut % (Auto) Lymph % (Auto) [place] % (Auto) Eos % (Auto) Baso % (Auto) Lymph # (Auto) [place] # (Auto) Eos # (Auto) Baso # (Auto) Abs Immat Gran (auto) Absolute Neuts (auto) Absolute Nucleated RBC Nucleated RBC % (auto) Anion Gap Estim Creat Clear Calc Estimated GFR POC Glucose 65 Random Glucose Calcium Vitamin B12 Folate S. pyogenes GrpA CHRIS Assessment and Plan (1) Acute heart failure: Status: Inactive Assessment and Plan: for 59yo M with RACHEL on CPAP, HF with mildly reduced EF, DM2, HTN, HLD, and CKD5 with nephrotic-range proteinuria likely due to diabetic nephropathy sent in by his [employer] dispatcher, Dr Wily Mims, for worsening renal function in the setting of peripheral edema of the legs and hands along with orthopnea and generalized weakness. Last admitted here 10/21-10/26/24 for CHF exacerbation/volume overload. hypervolemia MARII/CKD5 nephrotic syndrome acute-chronic HF with mildly reduced EF - bumetanide drip 1 mg/hr and also got metolazone 10 mg 11/13 and 11/14. 11/15 Changed to 2mg IV push bumex bid and add metolazone 5mg daily per nephrology - monitor BNP/BMP/Mg + wts/I+O, Nephrology following, Cardiology consulted - renal doppler to assess for TAMMY negative - CT-guided renal biopsy deferred to 11/16, will need ddAVP 20 mcg IV 30 prior due to risk of uremic bleeding - screen for light chain amyloidosis: SPEP with faint M-spike in gamma globulin region; BOWEN, UPEP, and sFLCR pending - continue sevelamer, calcitriol, sodium bicarbonate, Kayexelate - continue carvedilol, hydralazine, nifedipine; increase clonidine and Isordil; d/c'ed spironolactone - updated TTE to check for progressive LV dysfunction; no significant change from 08/21 to 11/12 and atrial pressures are normal suggestive of hypervolemia driven more by nephrotic syndrome than HF and Cardiology has signed off troponin indeterminate - flat, likely due to CHF HLD - continue statin mood disorder - continue aripiprazole, bupropin, clonidine, mirtazapine, sertraline DM2 - correction-dose lispro RA - continue leflunomide, sulfasalazine VTE ppx - SCDs, hold heparin for renal biopsy dispo - eventual home with VNA In my clinical judgment, the patient requires continued inpatient hospitalization for the following reasons: IV diuresis, renal biopsy Total time managing care of this patient today: 40 minutes. Quality Stroke Does the patient have a stroke diagnosis?: No VTE Prior VTE?: No VTE Risk Level:: Medical - moderate - high VTE Device Contraindication: N/A - Device Ordered VTE Drug Contraindication: Treatment Not Indicated
[2024-11-16 10:14] LABS: IgA 216 mg/dL (70-320); IgG 918 mg/dL (600-1540); IgM 139 mg/dL (50-300)
--- NOTE | 2024-11-16 10:42 | PC.RT ---
pt refusing cpap the past 3 nights. therefore order will be dc'd per policy.
--- NOTE | 2024-11-16 11:02 | MHC.CM.PN ---
Per ROUNDS discussion, Patient is not yet medically cleared for dc today (Kidney Biopsy); home/resume services is the goal and CM will continue to follow.
[2024-11-16] MEDS: fentaNYL citrate/PF 100 MCG/2 ML VIAL 25 MCG IVPUSH (11:16)
[2024-11-16] MEDS: Midazolam HCl 2 MG/2 ML VIAL 0.5 MG IVPUSH (11:16)
--- NOTE | 2024-11-16 11:54 | P.PNNP_ITS ---
Subjective Subjective Date of Service: 11/16/24 Principal diagnosis: Fluid overload Interval history: Events noted. All recent data reviewed Physical Exam 2 Vital Signs: Vital Signs: Last Vital Signs Temp 97.6 F 11/16/24 07:54 Pulse 67 11/16/24 11:40 Resp 15 11/16/24 11:40 BP 119/65 11/16/24 11:40 Pulse Ox 96 11/16/24 11:40 O2 Del Method Nasal Cannula 11/16/24 11:40 O2 Flow Rate 2 11/16/24 11:40 BMI result Body Mass Index 35.1 Const: General: no acute distress Orientation/consciousness: patient oriented x3 Eyes: EOM: EOMs intact bilaterally Resp: Auscultation: diminished lung sounds Cardio: Rate: regular rate GI: Palpation (GI): Soft to palpation Neuro: General: patient oriented x3 Objective Data Labs 11/16/24 05:57 11/16/24 05:57 Labs: Laboratory Results - last 24 hr 11/12/24 11/15/24 11/15/24 11:27 12:38 15:37 WBC RBC Hgb Hct MCV MCH MCHC RDW Plt Count MPV Immature Gran % (Auto) Neut % (Auto) Lymph % (Auto) [place] % (Auto) Eos % (Auto) Baso % (Auto) Lymph # (Auto) [place] # (Auto) Eos # (Auto) Baso # (Auto) Abs Immat Gran (auto) Absolute Neuts (auto) Absolute Nucleated RBC Nucleated RBC % (auto) Sodium Potassium Chloride Carbon Dioxide Anion Gap BUN Creatinine Estim Creat Clear Calc Estimated GFR POC Glucose 130 H Random Glucose Calcium IgG Total 918 IgA Total 216 IgM 139 BOWEN Interpretation SEE NOTE S. pyogenes GrpA CHRIS Negative 11/15/24 11/16/24 11/16/24 20:54 05:57 07:21 WBC 4.2 L RBC 2.56 L Hgb 7.4 L Hct 23.2 L MCV 90.6 MCH 28.9 MCHC 31.9 RDW 14.6 Plt Count 134 L MPV 11.0 Immature Gran % (Auto) 0.2 Neut % (Auto) 60.3 Lymph % (Auto) 25.2 [place] % (Auto) 7.5 Eos % (Auto) 6.6 H Baso % (Auto) 0.2 Lymph # (Auto) 1.1 L [place] # (Auto) 0.3 Eos # (Auto) 0.3 Baso # (Auto) 0.0 Abs Immat Gran (auto) 0.01 Absolute Neuts (auto) 2.6 Absolute Nucleated RBC 0.000 Nucleated RBC % (auto) 0.0 Sodium 138 Potassium 4.8 Chloride 106 Carbon Dioxide 20 L Anion Gap 17 BUN 99 H Creatinine 7.98 H* Estim Creat Clear Calc 11.4 Estimated GFR 7 POC Glucose 151 H 65 Random Glucose 65 Calcium 7.6 L IgG Total IgA Total IgM BOWEN Interpretation S. pyogenes GrpA CHRIS Procedures Date of Service Date of Service: 11/16/24 Assessment & Plan Assessment and plan (1) CKD stage 5 due to type 2 diabetes mellitus: Status: Acute (2) Secondary hyperparathyroidism (of renal origin): Status: Acute (3) Anemia in chronic kidney disease (CKD): Status: Acute Plan No symptoms of uremia, edema improving with diuresis. No indication for renal replacement therapy at present. Renal biopsy; Workup so far negative, MIGUEL, Anca, ds DNA, SPEP, UPEP, serum free light chains all normal, hepatitis panel negative His chronic kidney disease is possibly secondary to diabetic kidney disease with poor control of blood sugars Continue current medications for now. Shall give Procrit [id number] U tomorrow Progress Note: Quality Stroke Does the patient have a stroke diagnosis?: No
[2024-11-16 13:33] LABS: Glucose, Whole Blood 82 mg/dL (60-115)
[2024-11-16] MEDS: oxyCODONE HCl Immed Release 5 MG TABLET PO (15:17)
[2024-11-16 16:21] LABS: Glucose, Whole Blood 119 mg/dL (60-115)
[2024-11-16 20:01] LABS: Glucose, Whole Blood 168 mg/dL (60-115)
[2024-11-16] MEDS: traZODone HCL 50 MG TABLET PO (20:12)
[2024-11-16] MEDS: Mirtazapine 15 MG TABLET PO (20:12)
[2024-11-16] MEDS: Insulin Lispro 100 UNIT/ML 3 ML VIAL SUBCUT (20:13)
[2024-11-16] MEDS: Melatonin 3 MG TABLET 6 MG PO (23:24)
[2024-11-17] VITALS (21 sets, daily range): BP systolic 121–146; BP diastolic 59–78; PULSE 64–82; RESP 16–18; TEMP 36.7–37.6; O2SAT 90–99
[2024-11-17 07:31] LABS: Glucose, Whole Blood 68 mg/dL (60-115)
[2024-11-17] MEDS: Sodium Bicarbonate 650 MG TABLET 1300 MG PO ×2 (07:49→20:09)
[2024-11-17] MEDS: ARIPiprazole 2 MG TABLET PO (07:49)
[2024-11-17] MEDS: Sertraline HCL 50 MG TABLET PO (07:49)
[2024-11-17 07:50] LABS: Glucose, Whole Blood 95 mg/dL (60-115)
[2024-11-17] MEDS: buPROPion HCl XL 150 MG TAB.ER.24H PO (07:50)
[2024-11-17] MEDS: Sevelamer Carbonate Tablet 800 MG TABLET PO ×3 (07:50→16:17)
[2024-11-17] MEDS: NIFEdipine ER 30 MG TAB.ER.24 60 MG PO (07:50)
[2024-11-17] MEDS: Atorvastatin Calcium 80 MG TABLET PO (07:50)
[2024-11-17] MEDS: calcitrioL 0.25 MCG CAPSULE PO (07:50)
[2024-11-17] MEDS: Isosorbide Dinitrate 20 MG TABLET PO ×3 (07:50→17:08)
[2024-11-17] MEDS: cloNIDine HCL 0.1 MG TABLET 0.3 MG PO ×2 (07:50→20:09)
[2024-11-17] MEDS: metOLazone 5 MG TABLET PO (07:50)
[2024-11-17] MEDS: carvediloL 25 MG TABLET PO ×2 (07:50→20:09)
[2024-11-17] MEDS: hydrALAZINE HCl 50 MG TABLET 100 MG PO ×3 (07:50→20:09)
[2024-11-17] MEDS: 0.9 % Sodium Chloride Flush 3 ML SYRINGE IVFLUSH ×4 (07:51→20:11)
[2024-11-17] MEDS: Bumetanide 1 MG/4 ML VIAL 2 MG IVPUSH ×2 (07:51→16:17)
[2024-11-17 09:00] LABS: Mean Corpuscular Hemoglobin 29.6 pg (27.0-33.0); Mean Corpuscular Volume 89.8 fL (80.0-98.0); Mean Platelet Volume 10.9 fL (9.4-12.4); Platelet Count 126 X10*3/uL (160-400); Red Blood Count 2.16 X10*6/uL (4.60-5.80); Red Cell Distribution Width 14.6 % (11.0-16.0); White Blood Count 4.2 X10*3/uL (4.8-10.8)
[2024-11-17 09:11] LABS: Hematocrit 19.4 % (42.0-52.0); Hemoglobin 6.4 g/dl (14.0-18.0)
[2024-11-17 09:26] LABS: Anion Gap 14 (12-20); Blood Urea Nitrogen 101 mg/dL (9-16); Calcium 7.6 mg/dL (8.4-10.2); Carbon Dioxide 22 mmol/L (22-29); Chloride 106 mmol/L (96-108); Creatinine Clr Calc Pharmacy 10.7; Estimated Glomerular Filt Rate 6; Glucose Random 126 mg/dL (60-115); Potassium 4.8 mmol/L (3.3-5.1); Sodium 137 mmol/L (135-145)
--- NOTE | 2024-11-17 09:38 | P.PNIM_ITS ---
Subjective Subjective Date of Service: 11/17/24 Interval History: Pt is reporting feeling much better today, persistent anasarca but better, Hgb lower since bx Physical Exam 2 Vital Signs: Vital Signs: Last Vital Signs Temp 98.5 F 11/17/24 07:06 Pulse 74 11/17/24 07:50 Resp 18 11/17/24 07:06 BP 131/62 11/17/24 07:51 Pulse Ox 93 11/17/24 07:06 O2 Del Method Room Air 11/17/24 07:06 O2 Flow Rate 2 11/16/24 11:40 BMI result Body Mass Index 35.1 Const: Other: General: AO X 3, no acute distress Resp: CTA bilateral CVS: S1,S2,RRR GI: +BS, NT, no distention Skin: No rash ext: swelling to left arm signficantly much bigger than the other sise, bilat leg edema Neuro: motor grossly intact Psych: appropriate affect Objective Data Active Medications Acetaminophen (Acetaminophen 325 Mg Tablet) 650 mg PO Q6H PRN PRN Reason: Pain, Mild 1-3,fever,headache Last Admin: 11/14/24 23:24 Dose: 650 mg Documented By: SERAFIN Aripiprazole (Aripiprazole 2 Mg Tablet) 2 mg PO DAILY [facility] Last Admin: 11/17/24 07:49 Dose: 2 mg Documented By: BECKIE Atorvastatin Calcium (Atorvastatin Calcium 80 Mg Tablet) 80 mg PO DAILY [facility] Last Admin: 11/17/24 07:50 Dose: 80 mg Documented By: BECKIE Benzocaine (Throat Lozenge, Medicated Lozenge) 1 lozenge MUCOUS MEM Q2H PRN PRN Reason: Sore Throat Bumetanide (Bumetanide 1 Mg/4 Ml Vial) 2 mg IVPUSH BID@0900,1700 [facility]; Protocol Last Admin: 11/17/24 07:51 Dose: 2 mg Documented By: BECKIE Bupropion HCl (Bupropion Hcl Xl 150 Mg Tab.Er.24h) 150 mg PO DAILY [facility] Last Admin: 11/17/24 07:50 Dose: 150 mg Documented By: BECKIE Calcitriol (Calcitriol 0.25 Mcg Capsule) 0.25 mcg PO DAILY [facility] Last Admin: 11/17/24 07:50 Dose: 0.25 mcg Documented By: BECKIE Calcium Carbonate (Calcium Carbonate 750 Mg Tab.Chew) 750 mg PO Q4H PRN PRN Reason: Heartburn Carvedilol (Carvedilol 25 Mg Tablet) 25 mg PO BID [facility]; Protocol Last Admin: 11/17/24 07:50 Dose: 25 mg Documented By: BECKIE Clonidine HCl (Clonidine Hcl 0.1 Mg Tablet) 0.3 mg PO BID [facility]; Protocol Last Admin: 11/17/24 07:50 Dose: 0.3 mg Documented By: BECKIE Dextrose (Dextrose 50 % 25 Gm/50 Ml Syringe) 25 gm IVPUSH Q15M PRN; Protocol PRN Reason: per Hypoglycemia Standing Ord. Last Admin: 11/13/24 08:36 Dose: 25 gm Documented By: ESTEPHANIE Glucose (Glucose Gel 15 Gm Gel..Gram.) 15 gm PO Q15M PRN; Protocol PRN Reason: per Hypoglycemia Standing Ord. Last Admin: 11/12/24 06:12 Dose: 15 gm Documented By: CYRIL Hydralazine HCl (Hydralazine Hcl 50 Mg Tablet) 100 mg PO TID [facility]; Protocol Last Admin: 11/17/24 07:50 Dose: 100 mg Documented By: BECKIE Desmopressin Acetate 20 mcg/ (Sodium Chloride) 55 mls @ 100 mls/hr IV ONCE PRN PRN Reason: 30 min prior to renal biopsy Insulin Human Lispro (Insulin Lispro 100 Unit/Ml 3 Ml Vial) 0 unit SUBCUT QIDACHS [facility]; Protocol Last Admin: 11/17/24 07:08 Dose: Not Given Documented By: BECKIE Non-Admin Reason: No Insulin Coverage Isosorbide Dinitrate (Isosorbide Dinitrate 20 Mg Tablet) 20 mg PO TID@0800,1300,1800 [facility]; Protocol Last Admin: 11/17/24 07:50 Dose: 20 mg Documented By: BECKIE Labetalol HCl (Labetalol Hcl 100 Mg/20 Ml Vial) 10 mg IVPUSH Q4H PRN PRN Reason: BP > 170 Last Admin: 11/12/24 03:00 Dose: 10 mg Documented By: CYRIL Magnesium Hydroxide (Milk Of Magnesia 30 Ml Oral.Susp) 30 ml PO DAILY PRN PRN Reason: Constipation Melatonin (Melatonin 3 Mg Tablet) 6 mg PO BEDTIME PRN PRN Reason: Insomnia Last Admin: 11/16/24 23:24 Dose: 6 mg Documented By: SABA Metolazone (Metolazone 5 Mg Tablet) 5 mg PO DAILY [facility] Last Admin: 11/17/24 07:50 Dose: 5 mg Documented By: BECKIE Mirtazapine (Mirtazapine 15 Mg Tablet) 15 mg PO BEDTIME [facility] Last Admin: 11/16/24 20:12 Dose: 15 mg Documented By: SABA Nifedipine (Nifedipine Er 30 Mg Tab.Er.24) 60 mg PO DAILY [facility]; Protocol Last Admin: 11/17/24 07:50 Dose: 60 mg Documented By: BECKIE Ondansetron HCl (Ondansetron Hcl 4 Mg/2 Ml Vial) 4 mg IVPUSH Q8H PRN PRN Reason: Nausea and Vomiting Oxycodone HCl (Oxycodone Hcl Immed Release 5 Mg Tablet) 5 mg PO Q6H PRN PRN Reason: Pain, Severe (Pain Scale 7-10) Last Admin: 11/16/24 15:17 Dose: 5 mg Documented By: BECKIE Sertraline HCl (Sertraline Hcl 50 Mg Tablet) 50 mg PO DAILY [facility] Last Admin: 11/17/24 07:49 Dose: 50 mg Documented By: BECKIE Sevelamer Carbonate (Sevelamer Carbonate Tablet 800 Mg Tablet) 800 mg PO TIDWM [facility] Last Admin: 11/17/24 07:50 Dose: 800 mg Documented By: BECKIE Sodium Bicarbonate (Sodium Bicarbonate 650 Mg Tablet) 1,300 mg PO BID [facility] Last Admin: 11/17/24 07:49 Dose: 1,300 mg Documented By: BECKIE Sodium Chloride (0.9 % Sodium Chloride Flush 3 Ml Syringe) 3 ml IVFLUSH QSHIFT [facility] Last Admin: 11/17/24 07:51 Dose: 3 ml Documented By: BECKIE Sodium Polystyrene Sulfonate (Sodium Polystyrene Sulfon/Sorb 15 Gm/60 Ml Oral.Susp) 30 gm PO DAILY [facility] Last Admin: 11/17/24 09:33 Dose: Not Given Documented By: BECKIE Non-Admin Reason: Physician Held Med Spironolactone (Spironolactone 25 Mg Tablet) 25 mg PO DAILY [facility]; Protocol Last Admin: 11/12/24 12:54 Dose: 25 mg Documented By: DENISE Trazodone HCl (Trazodone Hcl 50 Mg Tablet) 50 mg PO BEDTIME [facility] Last Admin: 11/16/24 20:12 Dose: 50 mg Documented By: SABA Labs 11/17/24 08:54 11/17/24 08:54 Labs: Laboratory Results - last 24 hr 11/12/24 11/13/24 11/16/24 11:27 03:49 13:24 MCV MCH MCHC RDW Plt Count MPV Absolute Nucleated RBC Nucleated RBC % (auto) Anion Gap Estim Creat Clear Calc Estimated GFR POC Glucose 82 Random Glucose Calcium IgG Total 918 IgA Total 216 IgM 139 BOWEN Interpretation SEE NOTE Urine Immunofixation 11/16/24 11/16/24 11/17/24 16:18 19:57 07:05 MCV MCH MCHC RDW Plt Count MPV Absolute Nucleated RBC Nucleated RBC % (auto) Anion Gap Estim Creat Clear Calc Estimated GFR POC Glucose 119 H 168 H 68 Random Glucose Calcium IgG Total IgA Total IgM BOWEN Interpretation Urine Immunofixation 11/17/24 11/17/24 07:47 08:54 MCV 89.8 MCH 29.6 MCHC 33.0 RDW 14.6 Plt Count 126 L MPV 10.9 Absolute Nucleated RBC 0.000 Nucleated RBC % (auto) 0.0 Anion Gap 14 Estim Creat Clear Calc 10.7 Estimated GFR 6 POC Glucose 95 Random Glucose 126 H Calcium 7.6 L IgG Total IgA Total IgM BOWEN Interpretation Urine Immunofixation Assessment and Plan (1) Acute heart failure: Status: Inactive Assessment and Plan: for 59yo M with RACHEL on CPAP, HF with mildly reduced EF, DM2, HTN, HLD, and CKD5 with nephrotic-range proteinuria likely due to diabetic nephropathy sent in by his outfitter cabin, Dr Wily Mims, for worsening renal function in the setting of peripheral edema of the legs and hands along with orthopnea and generalized weakness. Last admitted here 10/21-10/26/24 for CHF exacerbation/volume overload. hypervolemia MARII/CKD5 nephrotic syndrome acute-chronic HF with mildly reduced EF bumetanide drip 1 mg/hr and also got metolazone 10 mg 11/13 and 11/14. 11/15 Changed to 2mg IV push bumex bid and add metolazone 5mg daily per nephrology monitor BNP/BMP/Mg + wts/I+O, Nephrology following, Cardiology consulted renal doppler no TAMMY CT-guided renal biopsy done 11/16, H/H down, get CT of abdomen screen for light chain amyloidosis: SPEP with faint M-spike in gamma globulin region; BOWEN, UPEP, and sFLCR pending continue sevelamer, calcitriol, sodium bicarbonate, Kayexelate for high K as needed continue carvedilol, hydralazine, nifedipine; increase clonidine and Isordil; d/c'ed spironolactone updated TTE to check for progressive LV dysfunction; no significant change from 08/21 to 11/12 and atrial pressures are normal suggestive of hypervolemia driven more by nephrotic syndrome than HF and Cardiology has signed off troponin indeterminate flat, likely due to CHF HLD continue statin mood disorder continue aripiprazole, bupropin, clonidine, mirtazapine, sertraline DM2 correction-dose lispro RA continue leflunomide, sulfasalazine VTE ppx SCDs, hold heparub d/t worsening anemia, dispo eventual home with VNA In my clinical judgment, the patient requires continued inpatient hospitalization for the following reasons: IV diuresis, renal biopsy Total time managing care of this patient today: 40 minutes. Quality Stroke Does the patient have a stroke diagnosis?: No VTE Prior VTE?: No VTE Risk Level:: Medical - moderate - high VTE Device Contraindication: N/A - Device Ordered VTE Drug Contraindication: Treatment Not Indicated
[2024-11-17 11:16] LABS: Glucose, Whole Blood 105 mg/dL (60-115)
[2024-11-17 12:04] LABS: PEU-Rand. Prot/Creat Ratio 15350 mg/g creat (25-148); PEU-Random Ur. Gamma Globulin 12 %; PEU-Random Urine A1 Globulin 8 %; PEU-Random Urine A2 Globulin 11 %; PEU-Random Urine Albumin 55 %; PEU-Random Urine Beta Globulin 14 %; PEU-Random Urine Creatinine 40 mg/dL (20-320); PEU-Random Urine Protein 614 mg/dL (5-25)
[2024-11-17 16:16] LABS: Glucose, Whole Blood 109 mg/dL (60-115)
[2024-11-17] MEDS: Acetaminophen 325 MG TABLET 650 MG PO (16:17)
[2024-11-17 16:22] LABS: Kappa, Serum 168 mg/dL (176-443); Kappa/Lambda Ratio, Serum 1.14 (1.29-2.55); Lambda, Serum 147 mg/dL (91-240)
--- NOTE | 2024-11-17 17:53 | PC.NURSE ---
Patients temp slightly elevated prior to starting blood, temp was 99.1. First unit of blood started and temp continues to stay elevated, 99.4. MD notified okay to continue blood. Second unit of blood started, Tylenol given, temp still elevated 99.7. Patient asymptomatic, MD notified okay to continue blood, all other needs met at this time, call celestin within reach.
--- NOTE | 2024-11-17 19:13 | P.PNNP_ITS ---
Subjective Subjective Date of Service: 11/17/24 Principal diagnosis: Fluid overload Interval history: Reporting feeling much better today, persistent anasarca but better, Hgb lower since bx; Denies uremic symptoms Physical Exam 2 Vital Signs: Vital Signs: Last Vital Signs Temp 98.1 F 11/17/24 19:06 Pulse 64 11/17/24 19:06 Resp 18 11/17/24 19:06 BP 122/60 11/17/24 19:06 Pulse Ox 96 11/17/24 19:06 O2 Del Method Room Air 11/17/24 19:06 O2 Flow Rate 2 11/16/24 11:40 BMI result Body Mass Index 35.1 Const: General: no acute distress Orientation/consciousness: patient oriented x3 Eyes: EOM: EOMs intact bilaterally Neck: Neck: Yes supple Resp: Auscultation: diminished lung sounds Cardio: Rate: regular rate GI: Palpation (GI): Soft to palpation Neuro: General: patient oriented x3 and moves all extremities Objective Data Labs 11/17/24 08:54 11/17/24 08:54 Labs: Laboratory Results - last 24 hr 11/12/24 11/13/24 11/15/24 11:27 03:49 06:42 WBC RBC Hgb Hct MCV MCH MCHC RDW Plt Count MPV Absolute Nucleated RBC Nucleated RBC % (auto) Smear Path Review Sodium Potassium Chloride Carbon Dioxide Anion Gap BUN Creatinine Estim Creat Clear Calc Estimated GFR POC Glucose Random Glucose Calcium Abnorm Protein Band 2 TNP Abnorm Protein Band 3 TNP U [place] Prot/Creat Ratio 15.350 H Ur Creatinine mg/dL 40 U Total Protein mg/dL 614 H Protein/Creatinin Ratio 03840 H Urine Albumin (%) 55 U Xgwez-3-Bktqgspa (%) 8 U Gvngf-9-Qwdmjdtb (%) 11 U Beta Globulin (%) 14 U Gamma Globulin (%) 12 Urine PEP Interpret [place]/Lambda Ratio 1.14 L Urine Immunofixation [place] Light Chain Anal 168 L Lambda Light Chain Anal 147 Blood Type A Positive Antibody Screen NEGATIVE Crossmatch See Detail 11/16/24 11/17/24 11/17/24 19:57 07:05 07:47 WBC RBC Hgb Hct MCV MCH MCHC RDW Plt Count MPV Absolute Nucleated RBC Nucleated RBC % (auto) Smear Path Review Sodium Potassium Chloride Carbon Dioxide Anion Gap BUN Creatinine Estim Creat Clear Calc Estimated GFR POC Glucose 168 H 68 95 Random Glucose Calcium Abnorm Protein Band 2 Abnorm Protein Band 3 U [place] Prot/Creat Ratio Ur Creatinine mg/dL U Total Protein mg/dL Protein/Creatinin Ratio Urine Albumin (%) U Uodld-3-Oocaccou (%) U Ajjzl-5-Qxnruoty (%) U Beta Globulin (%) U Gamma Globulin (%) Urine PEP Interpret [place]/Lambda Ratio Urine Immunofixation [place] Light Chain Anal Lambda Light Chain Anal Blood Type Antibody Screen Crossmatch 11/17/24 11/17/24 11/17/24 08:54 11:11 16:13 WBC 4.2 L RBC 2.16 L Hgb 6.4 L* Hct 19.4 L* MCV 89.8 MCH 29.6 MCHC 33.0 RDW 14.6 Plt Count 126 L MPV 10.9 Absolute Nucleated RBC 0.000 Nucleated RBC % (auto) 0.0 Smear Path Review SEE NOTE Sodium 137 Potassium 4.8 Chloride 106 Carbon Dioxide 22 Anion Gap 14 BUN 101 H Creatinine 8.43 H* Estim Creat Clear Calc 10.7 Estimated GFR 6 POC Glucose 105 109 Random Glucose 126 H Calcium 7.6 L Abnorm Protein Band 2 Abnorm Protein Band 3 U [place] Prot/Creat Ratio Ur Creatinine mg/dL U Total Protein mg/dL Protein/Creatinin Ratio Urine Albumin (%) U Epvtq-7-Qfgdjbyc (%) U Lhccj-6-Brhlnsod (%) U Beta Globulin (%) U Gamma Globulin (%) Urine PEP Interpret [place]/Lambda Ratio Urine Immunofixation [place] Light Chain Anal Lambda Light Chain Anal Blood Type Antibody Screen Crossmatch Procedures Date of Service Date of Service: 11/17/24 Assessment & Plan Assessment and plan (1) CKD stage 5 due to type 2 diabetes mellitus: Status: Acute Plan No symptoms of uremia, edema improving with diuresis. No indication for renal replacement therapy at present. S/P Renal biopsy- dropped Hb- transfuse [address] scan to R/O perinephric hematoma; Workup so far negative, MIGUEL, Anca, ds DNA, SPEP, UPEP, serum free light chains all normal, hepatitis panel negative.His chronic kidney disease is possibly secondary to diabetic kidney disease with poor control of blood sugars, Continue current medications for now. Progress Note: Quality Stroke Does the patient have a stroke diagnosis?: No
[2024-11-17] MEDS: traZODone HCL 50 MG TABLET PO (20:09)
[2024-11-17] MEDS: Mirtazapine 15 MG TABLET PO (20:10)
[2024-11-17 20:26] LABS: Glucose, Whole Blood 132 mg/dL (60-115)
[2024-11-17 21:20] LABS: Hemoglobin 7.5 g/dl (14.0-18.0); Mean Corpuscular HGB Conc 34.1 g/dl (31.0-36.0); Mean Platelet Volume 10.7 fL (9.4-12.4); Platelet Count 110 X10*3/uL (160-400); Red Cell Distribution Width 14.2 % (11.0-16.0); White Blood Count 5.5 X10*3/uL (4.8-10.8)
[2024-11-18] VITALS (11 sets, daily range): BP systolic 129–180; BP diastolic 60–84; PULSE 70–82; RESP 16–21; TEMP 36.5–37.4; O2SAT 91–94
[2024-11-18 07:09] LABS: Glucose, Whole Blood 118 mg/dL (60-115)
[2024-11-18 07:17] LABS: Hematocrit 23.8 % (42.0-52.0); Hemoglobin 7.7 g/dl (14.0-18.0); Mean Corpuscular HGB Conc 32.4 g/dl (31.0-36.0); Mean Corpuscular Hemoglobin 28.8 pg (27.0-33.0); Mean Corpuscular Volume 89.1 fL (80.0-98.0); Mean Platelet Volume 11.4 fL (9.4-12.4); Platelet Count 126 X10*3/uL (160-400); Red Blood Count 2.67 X10*6/uL (4.60-5.80); Red Cell Distribution Width 14.6 % (11.0-16.0); White Blood Count 5.5 X10*3/uL (4.8-10.8)
[2024-11-18] MEDS: hydrALAZINE HCl 50 MG TABLET 100 MG PO ×2 (08:20→22:08)
[2024-11-18] MEDS: calcitrioL 0.25 MCG CAPSULE PO (08:22)
[2024-11-18] MEDS: cloNIDine HCL 0.1 MG TABLET 0.3 MG PO ×2 (08:22→22:08)
[2024-11-18] MEDS: buPROPion HCl XL 150 MG TAB.ER.24H PO (08:23)
[2024-11-18] MEDS: NIFEdipine ER 30 MG TAB.ER.24 60 MG PO (08:23)
[2024-11-18] MEDS: Atorvastatin Calcium 80 MG TABLET PO (08:23)
[2024-11-18] MEDS: carvediloL 25 MG TABLET PO ×2 (08:24→22:09)
[2024-11-18] MEDS: Sodium Bicarbonate 650 MG TABLET 1300 MG PO ×2 (08:24→22:09)
[2024-11-18] MEDS: Sertraline HCL 50 MG TABLET PO (08:24)
[2024-11-18] MEDS: ARIPiprazole 2 MG TABLET PO (08:24)
[2024-11-18] MEDS: metOLazone 5 MG TABLET PO (08:24)
[2024-11-18] MEDS: Isosorbide Dinitrate 20 MG TABLET PO ×3 (08:24→18:00)
[2024-11-18] MEDS: Sevelamer Carbonate Tablet 800 MG TABLET PO ×3 (08:24→18:00)
[2024-11-18] MEDS: Sodium Polystyrene Sulfon/Sorb 15 GM/60 ML ORAL.SUSP 30 GM PO (08:24)
[2024-11-18] MEDS: 0.9 % Sodium Chloride Flush 3 ML SYRINGE IVFLUSH ×2 (08:25→22:09)
[2024-11-18] MEDS: Bumetanide 1 MG/4 ML VIAL 2 MG IVPUSH ×2 (08:25→18:00)
--- NOTE | 2024-11-18 09:30 | P.PNIM_ITS ---
Subjective Subjective Date of Service: 11/18/24 Interval History: Pt is reporting feeling much better today, persistent anasarca Hgb is slightly better with transfusion Physical Exam 2 Vital Signs: Vital Signs: Last Vital Signs Temp 98.6 F 11/18/24 07:10 Pulse 70 11/18/24 07:10 Resp 18 11/18/24 07:10 BP 180/84 H 11/18/24 08:22 Pulse Ox 92 11/18/24 07:10 O2 Del Method Room Air, Blow By 11/18/24 03:44 O2 Flow Rate 2 11/16/24 11:40 BMI result Body Mass Index 35.1 Const: Other: General: AO X 3, no acute distress Resp: CTA bilateral CVS: S1,S2,RRR, anasarca GI: +BS, NT, no distention Skin: No rash ext: swelling to left arm signficantly much bigger than the other sise, bilat leg edema Neuro: motor grossly intact Psych: appropriate affect Objective Data Active Medications Acetaminophen (Acetaminophen 325 Mg Tablet) 650 mg PO Q6H PRN PRN Reason: Pain, Mild 1-3,fever,headache Last Admin: 11/17/24 16:17 Dose: 650 mg Documented By: BECKIE Aripiprazole (Aripiprazole 2 Mg Tablet) 2 mg PO DAILY [facility] Last Admin: 11/18/24 08:24 Dose: 2 mg Documented By: GERMAIN Atorvastatin Calcium (Atorvastatin Calcium 80 Mg Tablet) 80 mg PO DAILY [facility] Last Admin: 11/18/24 08:23 Dose: 80 mg Documented By: GERMAIN Benzocaine (Throat Lozenge, Medicated Lozenge) 1 lozenge MUCOUS MEM Q2H PRN PRN Reason: Sore Throat Bumetanide (Bumetanide 1 Mg/4 Ml Vial) 2 mg IVPUSH BID@0900,1700 [facility]; Protocol Last Admin: 11/18/24 08:25 Dose: 2 mg Documented By: GERMAIN Bupropion HCl (Bupropion Hcl Xl 150 Mg Tab.Er.24h) 150 mg PO DAILY [facility] Last Admin: 11/18/24 08:23 Dose: 150 mg Documented By: GERMAIN Calcitriol (Calcitriol 0.25 Mcg Capsule) 0.25 mcg PO DAILY [facility] Last Admin: 11/18/24 08:22 Dose: 0.25 mcg Documented By: GERMAIN Calcium Carbonate (Calcium Carbonate 750 Mg Tab.Chew) 750 mg PO Q4H PRN PRN Reason: Heartburn Carvedilol (Carvedilol 25 Mg Tablet) 25 mg PO BID [facility]; Protocol Last Admin: 11/18/24 08:24 Dose: 25 mg Documented By: GERMAIN Clonidine HCl (Clonidine Hcl 0.1 Mg Tablet) 0.3 mg PO BID [facility]; Protocol Last Admin: 11/18/24 08:22 Dose: 0.3 mg Documented By: GERMAIN Dextrose (Dextrose 50 % 25 Gm/50 Ml Syringe) 25 gm IVPUSH Q15M PRN; Protocol PRN Reason: per Hypoglycemia Standing Ord. Last Admin: 11/13/24 08:36 Dose: 25 gm Documented By: ESTEPHANIE Glucose (Glucose Gel 15 Gm Gel..Gram.) 15 gm PO Q15M PRN; Protocol PRN Reason: per Hypoglycemia Standing Ord. Last Admin: 11/12/24 06:12 Dose: 15 gm Documented By: CYRIL Hydralazine HCl (Hydralazine Hcl 50 Mg Tablet) 100 mg PO TID [facility]; Protocol Last Admin: 11/18/24 08:20 Dose: 100 mg Documented By: GERMAIN Desmopressin Acetate 20 mcg/ (Sodium Chloride) 55 mls @ 100 mls/hr IV ONCE PRN PRN Reason: 30 min prior to renal biopsy Insulin Human Lispro (Insulin Lispro 100 Unit/Ml 3 Ml Vial) 0 unit SUBCUT QIDACHS [facility]; Protocol Last Admin: 11/18/24 08:26 Dose: Not Given Documented By: GERMAIN Non-Admin Reason: No Insulin Coverage Isosorbide Dinitrate (Isosorbide Dinitrate 20 Mg Tablet) 20 mg PO TID@0800,1300,1800 [facility]; Protocol Last Admin: 11/18/24 08:24 Dose: 20 mg Documented By: GERMAIN Labetalol HCl (Labetalol Hcl 100 Mg/20 Ml Vial) 10 mg IVPUSH Q4H PRN PRN Reason: BP > 170 Last Admin: 11/12/24 03:00 Dose: 10 mg Documented By: CYRIL Magnesium Hydroxide (Milk Of Magnesia 30 Ml Oral.Susp) 30 ml PO DAILY PRN PRN Reason: Constipation Melatonin (Melatonin 3 Mg Tablet) 6 mg PO BEDTIME PRN PRN Reason: Insomnia Last Admin: 11/16/24 23:24 Dose: 6 mg Documented By: SABA Metolazone (Metolazone 5 Mg Tablet) 5 mg PO DAILY [facility] Last Admin: 11/18/24 08:24 Dose: 5 mg Documented By: GERMAIN Mirtazapine (Mirtazapine 15 Mg Tablet) 15 mg PO BEDTIME [facility] Last Admin: 11/17/24 20:10 Dose: 15 mg Documented By: RUSSELL Nifedipine (Nifedipine Er 30 Mg Tab.Er.24) 60 mg PO DAILY [facility]; Protocol Last Admin: 11/18/24 08:23 Dose: 60 mg Documented By: GERMAIN Ondansetron HCl (Ondansetron Hcl 4 Mg/2 Ml Vial) 4 mg IVPUSH Q8H PRN PRN Reason: Nausea and Vomiting Oxycodone HCl (Oxycodone Hcl Immed Release 5 Mg Tablet) 5 mg PO Q6H PRN PRN Reason: Pain, Severe (Pain Scale 7-10) Last Admin: 11/16/24 15:17 Dose: 5 mg Documented By: BECKIE Sertraline HCl (Sertraline Hcl 50 Mg Tablet) 50 mg PO DAILY [facility] Last Admin: 11/18/24 08:24 Dose: 50 mg Documented By: GERMAIN Sevelamer Carbonate (Sevelamer Carbonate Tablet 800 Mg Tablet) 800 mg PO TIDWM [facility] Last Admin: 11/18/24 08:24 Dose: 800 mg Documented By: GERMAIN Sodium Bicarbonate (Sodium Bicarbonate 650 Mg Tablet) 1,300 mg PO BID [facility] Last Admin: 11/18/24 08:24 Dose: 1,300 mg Documented By: GERMAIN Sodium Chloride (0.9 % Sodium Chloride Flush 3 Ml Syringe) 3 ml IVFLUSH QSHIFT [facility] Last Admin: 11/18/24 08:25 Dose: 3 ml Documented By: GERMAIN Sodium Polystyrene Sulfonate (Sodium Polystyrene Sulfon/Sorb 15 Gm/60 Ml Oral.Susp) 30 gm PO DAILY [facility] Last Admin: 11/18/24 08:24 Dose: 30 gm Documented By: GERMAIN Spironolactone (Spironolactone 25 Mg Tablet) 25 mg PO DAILY [facility]; Protocol Last Admin: 11/12/24 12:54 Dose: 25 mg Documented By: DENISE Trazodone HCl (Trazodone Hcl 50 Mg Tablet) 50 mg PO BEDTIME [facility] Last Admin: 11/17/24 20:09 Dose: 50 mg Documented By: RUSSELL Labs 11/18/24 06:29 11/17/24 08:54 Labs: Laboratory Results - last 24 hr 11/12/24 11/13/24 11/15/24 11:27 03:49 06:42 MCV MCH MCHC RDW Plt Count MPV Absolute Nucleated RBC Nucleated RBC % (auto) Smear Path Review Hold Purple Top POC Glucose Abnorm Protein Band 2 TNP Abnorm Protein Band 3 TNP U [place] Prot/Creat Ratio 15.350 H Ur Creatinine mg/dL 40 U Total Protein mg/dL 614 H Protein/Creatinin Ratio 31606 H Urine Albumin (%) 55 U Kpeil-5-Miqpayek (%) 8 U Xkeon-7-Qndbbvee (%) 11 U Beta Globulin (%) 14 U Gamma Globulin (%) 12 Urine PEP Interpret [place]/Lambda Ratio 1.14 L [place] Light Chain Anal 168 L Lambda Light Chain Anal 147 Blood Type A Positive Antibody Screen NEGATIVE Crossmatch See Detail 11/17/24 11/17/24 11/17/24 08:54 11:11 16:13 MCV MCH MCHC RDW Plt Count MPV Absolute Nucleated RBC Nucleated RBC % (auto) Smear Path Review SEE NOTE Hold Purple Top POC Glucose 105 109 Abnorm Protein Band 2 Abnorm Protein Band 3 U [place] Prot/Creat Ratio Ur Creatinine mg/dL U Total Protein mg/dL Protein/Creatinin Ratio Urine Albumin (%) U Cquxs-3-Hxglvrco (%) U Xzcaw-9-Tsmqqooo (%) U Beta Globulin (%) U Gamma Globulin (%) Urine PEP Interpret [place]/Lambda Ratio [place] Light Chain Anal Lambda Light Chain Anal Blood Type Antibody Screen Crossmatch 11/17/24 11/17/24 11/18/24 20:20 21:14 06:29 MCV 88.0 89.1 MCH 30.0 28.8 MCHC 34.1 32.4 RDW 14.2 14.6 Plt Count 110 L 126 L MPV 10.7 11.4 Absolute Nucleated RBC 0.000 0.000 Nucleated RBC % (auto) 0.0 0.0 Smear Path Review Hold Purple Top Cancelled POC Glucose 132 H Abnorm Protein Band 2 Abnorm Protein Band 3 U [place] Prot/Creat Ratio Ur Creatinine mg/dL U Total Protein mg/dL Protein/Creatinin Ratio Urine Albumin (%) U Okxnd-6-Uzhkpctx (%) U Ylymh-0-Osudvboq (%) U Beta Globulin (%) U Gamma Globulin (%) Urine PEP Interpret [place]/Lambda Ratio [place] Light Chain Anal Lambda Light Chain Anal Blood Type Antibody Screen Crossmatch 11/18/24 07:06 MCV MCH MCHC RDW Plt Count MPV Absolute Nucleated RBC Nucleated RBC % (auto) Smear Path Review Hold Purple Top POC Glucose 118 H Abnorm Protein Band 2 Abnorm Protein Band 3 U [place] Prot/Creat Ratio Ur Creatinine mg/dL U Total Protein mg/dL Protein/Creatinin Ratio Urine Albumin (%) U Cvkxn-7-Dveqflbq (%) U Spnat-7-Tbgleopy (%) U Beta Globulin (%) U Gamma Globulin (%) Urine PEP Interpret [place]/Lambda Ratio [place] Light Chain Anal Lambda Light Chain Anal Blood Type Antibody Screen Crossmatch Assessment and Plan (1) Acute heart failure: Status: Inactive Assessment and Plan: for 59yo M with RACHEL on CPAP, HF with mildly reduced EF, DM2, HTN, HLD, and CKD5 with nephrotic-range proteinuria likely due to diabetic nephropathy sent in by his patient care associate, Dr Wily Mims, for worsening renal function in the setting of peripheral edema of the legs and hands along with orthopnea and generalized weakness. Last admitted here 10/21-10/26/24 for CHF exacerbation/volume overload. hypervolemia MARII/CKD5 nephrotic syndrome acute-chronic HF with mildly reduced EF bumetanide drip 1 mg/hr and also got metolazone 10 mg 11/13 and 11/14. 11/15 Changed to 2mg IV push bumex bid and add metolazone 5mg daily per nephrology monitor BNP/BMP/Mg + wts/I+O, Nephrology following, Cardiology consulted renal doppler no TAMMY CT-guided renal biopsy done 11/16, H/H down, get CT of abdomen Screen for light chain amyloidosis: SPEP with faint M-spike in gamma globulin region; BOWEN, UPEP, and sFLCR pending continue sevelamer, calcitriol, sodium bicarbonate, Kayexelate for high K as needed continue carvedilol, hydralazine, nifedipine; increase clonidine and Isordil; d/c'ed spironolactone updated TTE to check for progressive LV dysfunction; no significant change from 08/21 to 11/12 and atrial pressures are normal suggestive of hypervolemia driven more by nephrotic syndrome than HF and Cardiology has signed off Nephrology is recommending dialysis catheter today and dialysis to be started troponin indeterminate flat, likely due to CHF HLD continue statin mood disorder continue aripiprazole, bupropin, clonidine, mirtazapine, sertraline DM2 correction-dose lispro RA continue leflunomide, sulfasalazine VTE ppx SCDs, hold heparub d/t worsening anemia, dispo eventual home with VNA In my clinical judgment, the patient requires continued inpatient hospitalization for the following reasons: IV diuresis, and initiation of dialysis Total time managing care of this patient today: 40 minutes. Quality Stroke Does the patient have a stroke diagnosis?: No VTE Prior VTE?: No VTE Risk Level:: Medical - moderate - high VTE Device Contraindication: N/A - Device Ordered VTE Drug Contraindication: Treatment Not Indicated
[2024-11-18 10:58] LABS: Glucose, Whole Blood 131 mg/dL (60-115)
--- NOTE | 2024-11-18 11:48 | MHC.CM.PN ---
Per ROUNDS discussion, Patient is not yet medically cleared for dc (new HD); goal is home/resume vna and CM will continue to follow.
[2024-11-18] MEDS: Milk of Magnesia 30 ML ORAL.SUSP PO (12:36)
--- NOTE | 2024-11-18 14:38 | P.PNNP_ITS ---
Subjective Subjective Date of Service: 11/18/24 Principal diagnosis: Fluid overload Interval history: Pt is reporting feeling much better today continues to have persistent anasarca ;Hgb is slightly better with transfusion; USS this AM reviewed Physical Exam 2 Vital Signs: Vital Signs: Last Vital Signs Temp 98.6 F 11/18/24 11:01 Pulse 70 11/18/24 11:01 Resp 18 11/18/24 11:01 BP 129/60 11/18/24 11:01 Pulse Ox 94 11/18/24 11:01 O2 Del Method Room Air 11/18/24 11:01 O2 Flow Rate 2 11/16/24 11:40 BMI result Body Mass Index 35.1 Const: Other: Anasarca General: no acute distress Orientation/consciousness: patient oriented x3 Eyes: EOM: EOMs intact bilaterally Neck: Neck: Yes supple Resp: Auscultation: diminished lung sounds Cardio: Rate: regular rate GI: Palpation (GI): Soft to palpation Neuro: General: patient oriented x3 Extrem: General: Yes edema Objective Data Labs 11/18/24 06:29 11/17/24 08:54 Labs: Laboratory Results - last 24 hr 11/12/24 11/13/24 11/15/24 11:27 03:49 06:42 WBC RBC Hgb Hct MCV MCH MCHC RDW Plt Count MPV Absolute Nucleated RBC Nucleated RBC % (auto) Smear Path Review Hold Purple Top POC Glucose U Abnormal Prot Band 1 TNP U Abnormal Prot Band 2 TNP U Abnormal Prot Band 3 TNP [place]/Lambda Ratio 1.14 L [place] Light Chain Anal 168 L Lambda Light Chain Anal 147 Blood Type A Positive Antibody Screen NEGATIVE Crossmatch See Detail 11/17/24 11/17/24 11/17/24 08:54 16:13 20:20 WBC RBC Hgb Hct MCV MCH MCHC RDW Plt Count MPV Absolute Nucleated RBC Nucleated RBC % (auto) Smear Path Review SEE NOTE Hold Purple Top POC Glucose 109 132 H U Abnormal Prot Band 1 U Abnormal Prot Band 2 U Abnormal Prot Band 3 [place]/Lambda Ratio [place] Light Chain Anal Lambda Light Chain Anal Blood Type Antibody Screen Crossmatch 11/17/24 11/18/24 11/18/24 21:14 06:29 07:06 WBC 5.5 5.5 RBC 2.50 L 2.67 L Hgb 7.5 L 7.7 L Hct 22.0 L 23.8 L MCV 88.0 89.1 MCH 30.0 28.8 MCHC 34.1 32.4 RDW 14.2 14.6 Plt Count 110 L 126 L MPV 10.7 11.4 Absolute Nucleated RBC 0.000 0.000 Nucleated RBC % (auto) 0.0 0.0 Smear Path Review Hold Purple Top Cancelled POC Glucose 118 H U Abnormal Prot Band 1 U Abnormal Prot Band 2 U Abnormal Prot Band 3 [place]/Lambda Ratio [place] Light Chain Anal Lambda Light Chain Anal Blood Type Antibody Screen Crossmatch 11/18/24 10:54 WBC RBC Hgb Hct MCV MCH MCHC RDW Plt Count MPV Absolute Nucleated RBC Nucleated RBC % (auto) Smear Path Review Hold Purple Top POC Glucose 131 H U Abnormal Prot Band 1 U Abnormal Prot Band 2 U Abnormal Prot Band 3 [place]/Lambda Ratio [place] Light Chain Anal Lambda Light Chain Anal Blood Type Antibody Screen Crossmatch Procedures Date of Service Date of Service: 11/18/24 Assessment & Plan Assessment and plan (1) Anemia in chronic kidney disease (CKD): Status: Acute (2) CKD stage 5 due to type 2 diabetes mellitus: Status: Acute (3) Secondary hyperparathyroidism (of renal origin): Status: Acute (4) Hypertension: Status: Acute (5) Edema: Status: Acute Plan Edema improved with diuresis but still has anasarca .Needs renal replacement therapy. Ordered permcath tomorrow. Ordered HD for Lynette/Fri/Sat. Can be D/Denis on Sat after HD. Has an outpt HD spot in [facility] in [facility]( [phone]). Scow Derrick Operator can liase with group social worker in the Unit prior to D/C. Time of HD 7.30 AM S/P Renal biopsy- dropped Hb- transfuse [address] scan to R/O perinephric hematoma; Hb stable after transfuison and holding. Workup so far negative, MIGUEL, Anca, ds DNA, SPEP, UPEP, serum free light chains all normal, hepatitis panel negative.Has ESRD is possibly secondary to diabetic kidney disease with poor control of blood sugars, Continue current medications for now. Time Spent With Patient Time: . Progress Note: Quality Stroke Does the patient have a stroke diagnosis?: No
[2024-11-18 15:58] LABS: Glucose, Whole Blood 116 mg/dL (60-115)
[2024-11-18] MEDS: fentaNYL citrate/PF 100 MCG/2 ML VIAL 50 MCG IVPUSH (16:51)
[2024-11-18 17:59] LABS: Glucose, Whole Blood 106 mg/dL (60-115)
--- NOTE | 2024-11-18 18:29 | P.CDIM_ITS ---
PROVIDER RESPONSE TEXT: To clarify, the appropriate diagnosis supported by the clinical indicators: Acute blood loss anemia: suspected QUERY TEXT: PHYSICIAN'S DOCUMENTATION REQUEST Date of Query: 11/18/2024 10:21 AM EDT Patient Name: Dillon Lucio Admit Date: 11/11/2024 Dear Dashawn Juárez MD, A review of the medical record indicates additional documentation may be needed. Please review below and update the documentation accordingly. Clinical Indicators: Nephrology note 11/17/24 - S/P renal biopsy - dropped Hb - transfused 2 units PRBC. HGB 6.4 HCT 19.4 BP 121/59 Based on the above, could you clarify which of the following is the most likely type of anemia you ar e evaluating, treating, and/or monitoring? Acute postoperative anemia Acute blood loss anemia resolved, possible, probable, suspected, cannot rule out etc. Other (explain) Clinically unable to determine (explain) Thank you, Lily Manzo, CCS, CDIS Use of terms such as suspected, likely, concern for, or probable (associated with a specific diagnosi s that is being evaluated, monitored, or treated as if it exists) are acceptable and can be coded in the inpatient se tting, when documented at the time of discharge. Please use your independent medical judgment in providing your response. THIS QUERY IS PART OF THE PERMANENT MEDICAL RECORD
[2024-11-18 20:42] LABS: Glucose, Whole Blood 145 mg/dL (60-115)
[2024-11-18] MEDS: Mirtazapine 15 MG TABLET PO (22:07)
[2024-11-18] MEDS: traZODone HCL 50 MG TABLET PO (22:09)
[2024-11-19] VITALS (9 sets, daily range): BP systolic 129–167; BP diastolic 61–82; PULSE 71–83; RESP 16–18; TEMP 36.6–37.8; O2SAT 89–94
[2024-11-19 05:09] LABS: HBS Num1 2.09 mIU/mL (0-7.99); HBc Num1 0.06 S/CO (0.00-0.79); HBsAGNum1 0.27 S/CO (0.00-0.99); Hepatitis B Core Antibody Nonreactive (Nonreactive); Hepatitis B Surface Antigen Negative (Negative); ~Hepatitis B Surface Antibody NONREACTIVE (Nonreactive)
[2024-11-19 07:16] LABS: Glucose, Whole Blood 91 mg/dL (60-115)
[2024-11-19] MEDS: hydrALAZINE HCl 50 MG TABLET 100 MG PO ×3 (07:30→20:47)
[2024-11-19] MEDS: metOLazone 5 MG TABLET PO (07:31)
[2024-11-19] MEDS: ARIPiprazole 2 MG TABLET PO (07:31)
[2024-11-19] MEDS: Sodium Bicarbonate 650 MG TABLET 1300 MG PO ×2 (07:31→20:48)
[2024-11-19] MEDS: buPROPion HCl XL 150 MG TAB.ER.24H PO (07:31)
[2024-11-19] MEDS: carvediloL 25 MG TABLET PO ×2 (07:31→20:48)
[2024-11-19] MEDS: cloNIDine HCL 0.1 MG TABLET 0.3 MG PO ×2 (07:31→20:48)
[2024-11-19] MEDS: Isosorbide Dinitrate 20 MG TABLET PO ×3 (07:32→17:11)
[2024-11-19] MEDS: Sertraline HCL 50 MG TABLET PO (07:32)
[2024-11-19] MEDS: 0.9 % Sodium Chloride Flush 3 ML SYRINGE IVFLUSH ×3 (07:32→20:48)
[2024-11-19] MEDS: Sevelamer Carbonate Tablet 800 MG TABLET PO ×3 (07:32→15:54)
[2024-11-19] MEDS: calcitrioL 0.25 MCG CAPSULE PO (07:32)
[2024-11-19] MEDS: NIFEdipine ER 30 MG TAB.ER.24 60 MG PO (07:32)
[2024-11-19] MEDS: Atorvastatin Calcium 80 MG TABLET PO (07:32)
[2024-11-19] MEDS: Bumetanide 1 MG/4 ML VIAL 2 MG IVPUSH ×2 (07:32→15:53)
[2024-11-19] MEDS: Sodium Polystyrene Sulfon/Sorb 15 GM/60 ML ORAL.SUSP 30 GM PO (07:33)
--- NOTE | 2024-11-19 09:49 | HO.PM.IMPN ---
Subjective Subjective Date of Service: 11/19/24 Interval History: Pt is reporting feeling much better today, persistent anasarca Hgb is slightly better with transfusion Physical Exam Vital Signs: Vital Signs: Last Vital Signs Temp 99.9 F 11/19/24 07:16 Pulse 79 11/19/24 07:31 Resp 18 11/19/24 07:16 BP 165/82 H 11/19/24 07:31 Pulse Ox 93 11/19/24 07:16 O2 Del Method Room Air 11/19/24 07:16 O2 Flow Rate 2 11/18/24 16:45 BMI result Body Mass Index 35.1 Const: Other: General: AO X 3, no acute distress Resp: CTA bilateral CVS: S1,S2,RRR, anasarca GI: +BS, NT, no distention Skin: No rash ext: swelling to left arm signficantly much bigger than the other sise, bilat leg edema Neuro: motor grossly intact Psych: appropriate affect Objective Data Active Medications Acetaminophen (Acetaminophen 325 Mg Tablet) 650 mg PO Q6H PRN PRN Reason: Pain, Mild 1-3,fever,headache Last Admin: 11/17/24 16:17 Dose: 650 mg Documented By: BECKIE Aripiprazole (Aripiprazole 2 Mg Tablet) 2 mg PO DAILY [facility] Last Admin: 11/19/24 07:31 Dose: 2 mg Documented By: MONROE Atorvastatin Calcium (Atorvastatin Calcium 80 Mg Tablet) 80 mg PO DAILY [facility] Last Admin: 11/19/24 07:32 Dose: 80 mg Documented By: MONROE Benzocaine (Throat Lozenge, Medicated Lozenge) 1 lozenge MUCOUS MEM Q2H PRN PRN Reason: Sore Throat Bumetanide (Bumetanide 1 Mg/4 Ml Vial) 2 mg IVPUSH BID@0900,1700 [facility]; Protocol Last Admin: 11/19/24 07:32 Dose: 2 mg Documented By: MONROE Bupropion HCl (Bupropion Hcl Xl 150 Mg Tab.Er.24h) 150 mg PO DAILY [facility] Last Admin: 11/19/24 07:31 Dose: 150 mg Documented By: MONROE Calcitriol (Calcitriol 0.25 Mcg Capsule) 0.25 mcg PO DAILY [facility] Last Admin: 11/19/24 07:32 Dose: 0.25 mcg Documented By: MONROE Calcium Carbonate (Calcium Carbonate 750 Mg Tab.Chew) 750 mg PO Q4H PRN PRN Reason: Heartburn Carvedilol (Carvedilol 25 Mg Tablet) 25 mg PO BID [facility]; Protocol Last Admin: 11/19/24 07:31 Dose: 25 mg Documented By: MONROE Clonidine HCl (Clonidine Hcl 0.1 Mg Tablet) 0.3 mg PO BID [facility]; Protocol Last Admin: 11/19/24 07:31 Dose: 0.3 mg Documented By: MONROE Dextrose (Dextrose 50 % 25 Gm/50 Ml Syringe) 25 gm IVPUSH Q15M PRN; Protocol PRN Reason: per Hypoglycemia Standing Ord. Last Admin: 11/13/24 08:36 Dose: 25 gm Documented By: HUMPHREYYM Glucose (Glucose Gel 15 Gm Gel..Gram.) 15 gm PO Q15M PRN; Protocol PRN Reason: per Hypoglycemia Standing Ord. Last Admin: 11/12/24 06:12 Dose: 15 gm Documented By: CYRIL Heparin Sodium (Porcine) (Heparin Sodium,Porcine 5,000 Unit/Ml Vial) 5,000 unit INTRACATH ONCE ONE Stop: 11/20/24 06:01 Heparin Sodium (Porcine) (Heparin Sodium,Porcine 5,000 Unit/Ml Vial) 5,000 unit INTRACATH ONCE ONE Stop: 11/21/24 06:01 Hydralazine HCl (Hydralazine Hcl 50 Mg Tablet) 100 mg PO TID [facility]; Protocol Last Admin: 11/19/24 07:30 Dose: 100 mg Documented By: MONROE Desmopressin Acetate 20 mcg/ (Sodium Chloride) 55 mls @ 100 mls/hr IV ONCE PRN PRN Reason: 30 min prior to renal biopsy Insulin Human Lispro (Insulin Lispro 100 Unit/Ml 3 Ml Vial) 0 unit SUBCUT QIDACHS [facility]; Protocol Last Admin: 11/19/24 07:19 Dose: Not Given Documented By: MONROE Non-Admin Reason: No Insulin Coverage Isosorbide Dinitrate (Isosorbide Dinitrate 20 Mg Tablet) 20 mg PO TID@0800,1300,1800 [facility]; Protocol Last Admin: 11/19/24 07:32 Dose: 20 mg Documented By: MONROE Labetalol HCl (Labetalol Hcl 100 Mg/20 Ml Vial) 10 mg IVPUSH Q4H PRN PRN Reason: BP > 170 Last Admin: 11/12/24 03:00 Dose: 10 mg Documented By: CYRIL Magnesium Hydroxide (Milk Of Magnesia 30 Ml Oral.Susp) 30 ml PO DAILY PRN PRN Reason: Constipation Last Admin: 11/18/24 12:36 Dose: 30 ml Documented By: GERMAIN Melatonin (Melatonin 3 Mg Tablet) 6 mg PO BEDTIME PRN PRN Reason: Insomnia Last Admin: 11/16/24 23:24 Dose: 6 mg Documented By: SABA Metolazone (Metolazone 5 Mg Tablet) 5 mg PO DAILY [facility] Last Admin: 11/19/24 07:31 Dose: 5 mg Documented By: MONROE Mirtazapine (Mirtazapine 15 Mg Tablet) 15 mg PO BEDTIME [facility] Last Admin: 11/18/24 22:07 Dose: 15 mg Documented By: KAYLEY-JOZESuzanne Nifedipine (Nifedipine Er 30 Mg Tab.Er.24) 60 mg PO DAILY [facility]; Protocol Last Admin: 11/19/24 07:32 Dose: 60 mg Documented By: MONROE Ondansetron HCl (Ondansetron Hcl 4 Mg/2 Ml Vial) 4 mg IVPUSH Q8H PRN PRN Reason: Nausea and Vomiting Oxycodone HCl (Oxycodone Hcl Immed Release 5 Mg Tablet) 5 mg PO Q6H PRN PRN Reason: Pain, Severe (Pain Scale 7-10) Last Admin: 11/16/24 15:17 Dose: 5 mg Documented By: BECKIE Sertraline HCl (Sertraline Hcl 50 Mg Tablet) 50 mg PO DAILY [facility] Last Admin: 11/19/24 07:32 Dose: 50 mg Documented By: MONROE Sevelamer Carbonate (Sevelamer Carbonate Tablet 800 Mg Tablet) 800 mg PO TIDWM [facility] Last Admin: 11/19/24 07:32 Dose: 800 mg Documented By: MONROE Sodium Bicarbonate (Sodium Bicarbonate 650 Mg Tablet) 1,300 mg PO BID [facility] Last Admin: 11/19/24 07:31 Dose: 1,300 mg Documented By: MONROE Sodium Chloride (0.9 % Sodium Chloride Flush 3 Ml Syringe) 3 ml IVFLUSH QSHIFT [facility] Last Admin: 11/19/24 07:32 Dose: 3 ml Documented By: MONROE Sodium Polystyrene Sulfonate (Sodium Polystyrene Sulfon/Sorb 15 Gm/60 Ml Oral.Susp) 30 gm PO DAILY [facility] Last Admin: 11/19/24 07:33 Dose: 30 gm Documented By: MONROE Spironolactone (Spironolactone 25 Mg Tablet) 25 mg PO DAILY [facility]; Protocol Last Admin: 11/12/24 12:54 Dose: 25 mg Documented By: DENISE Trazodone HCl (Trazodone Hcl 50 Mg Tablet) 50 mg PO BEDTIME [facility] Last Admin: 11/18/24 22:09 Dose: 50 mg Documented By: KAYLEY-JOZEB Labs 11/19/24 10:50 11/17/24 08:54 Labs: Laboratory Results - last 24 hr 11/13/24 11/18/24 11/18/24 03:49 10:35 10:54 POC Glucose 131 H U Abnormal Prot Band 1 TNP U Abnormal Prot Band 2 TNP U Abnormal Prot Band 3 TNP Hep Bs Antigen Negative Hep Bs Antibody NONREACTIVE Hep B Core Total Ab Nonreactive 11/18/24 11/18/24 11/18/24 15:50 17:55 20:35 POC Glucose 116 H 106 145 H U Abnormal Prot Band 1 U Abnormal Prot Band 2 U Abnormal Prot Band 3 Hep Bs Antigen Hep Bs Antibody Hep B Core Total Ab 11/19/24 07:00 POC Glucose 91 U Abnormal Prot Band 1 U Abnormal Prot Band 2 U Abnormal Prot Band 3 Hep Bs Antigen Hep Bs Antibody Hep B Core Total Ab Assessment and Plan (1) Acute heart failure: Status: Inactive Assessment and Plan: for 59yo M with RACHEL on CPAP, HF with mildly reduced EF, DM2, HTN, HLD, and CKD5 with nephrotic-range proteinuria likely due to diabetic nephropathy sent in by his director of product management, Dr Wily Mims, for worsening renal function in the setting of peripheral edema of the legs and hands along with orthopnea and generalized weakness. Last admitted here 10/21-10/26/24 for CHF exacerbation/volume overload. hypervolemia/Anasarca d/t MARII progression to CKD 5, nephrotic syndrome, s/p bx acute-chronic HF with mildly reduced EF bumetanide drip 1 mg/hr and also got metolazone 10 mg 11/13 and 11/14. 11/15 Changed to 2mg IV push bumex bid and add metolazone 5mg daily per nephrology monitor BNP/BMP/Mg + wts/I+O, Nephrology following, Cardiology consulted renal doppler no TAMMY CT-guided renal biopsy done 11/16, H/H down, get CT of abdomen Screen for light chain amyloidosis: SPEP with faint M-spike in gamma globulin region; BOWEN, UPEP, and sFLCR pending continue sevelamer, calcitriol, sodium bicarbonate, Kayexelate for high K as needed continue carvedilol, hydralazine, nifedipine; increase clonidine and Isordil; d/c'ed spironolactone updated TTE to check for progressive LV dysfunction; no significant change from 08/21 to 11/12 and atrial pressures are normal suggestive of hypervolemia driven more by nephrotic syndrome than HF and Cardiology has signed off Had dialysis catheter inserted on 11/18 and dialysis to be started today 11/19, then 11/20 and DC 11/21, has outpatient spot. Hep B screen is negative Anemia, chronic and acute from post kidney biopsy perinephric hemorrhage, s/p 2 units of RBC on 11/17, H/H improved, continue monitoring troponin indeterminate flat, likely due to CHF HLD continue statin mood disorder continue aripiprazole, bupropin, clonidine, mirtazapine, sertraline DM2 correction-dose lispro RA continue leflunomide, sulfasalazine VTE ppx SCDs, hold heparub d/t worsening anemia, dispo eventual home with VNA In my clinical judgment, the patient requires continued inpatient hospitalization for the following reasons: IV diuresis, and initiation of dialysis Total time managing care of this patient today: 40 minutes. Quality Stroke Does the patient have a stroke diagnosis?: No VTE Prior VTE?: No VTE Risk Level:: Medical - moderate - high VTE Device Contraindication: N/A - Device Ordered VTE Drug Contraindication: Treatment Not Indicated
[2024-11-19 11:04] LABS: Hematocrit 23.1 % (42.0-52.0); Hemoglobin 7.9 g/dl (14.0-18.0); Mean Corpuscular HGB Conc 34.2 g/dl (31.0-36.0); Mean Corpuscular Hemoglobin 29.9 pg (27.0-33.0); Mean Corpuscular Volume 87.5 fL (80.0-98.0); Mean Platelet Volume 10.9 fL (9.4-12.4); Platelet Count 124 X10*3/uL (160-400); Red Blood Count 2.64 X10*6/uL (4.60-5.80); Red Cell Distribution Width 14.6 % (11.0-16.0); White Blood Count 6.1 X10*3/uL (4.8-10.8)
[2024-11-19] MEDS: Acetaminophen 325 MG TABLET 650 MG PO (11:13)
[2024-11-19 11:19] LABS: Glucose, Whole Blood 119 mg/dL (60-115)
[2024-11-19] MEDS: MannitoL 12.5 GM/50 ML VIAL IV (13:55)
--- NOTE | 2024-11-19 14:27 | PC.NURSE ---
Mannitol 12.5 was given during dialysis by restaurant crew and this RN.
[2024-11-19 16:05] LABS: Glucose, Whole Blood 83 mg/dL (60-115)
--- NOTE | 2024-11-19 16:38 | PM.PNNEP ---
Subjective Subjective Date of Service: 11/19/24 Principal diagnosis: Fluid overload Interval history: Evnets noted s/p HD catheter insertion Physical Exam Vital Signs: Vital Signs: Last Vital Signs Temp 97.8 F 11/19/24 15:59 Pulse 71 11/19/24 15:59 Resp 18 11/19/24 15:59 BP 140/63 H 11/19/24 15:59 Pulse Ox 92 11/19/24 15:59 O2 Del Method Room Air 11/19/24 15:59 O2 Flow Rate 2 11/18/24 16:45 BMI result Body Mass Index 35.1 Const: Other: Anasarca General: no acute distress, alert and awake Orientation/consciousness: patient oriented x3 Eyes: EOM: EOMs intact bilaterally Neck: Neck: Yes supple Resp: Effort & Inspection: normal respiratory effort and able to speak in complete sentences Auscultation: clear to auscultation bilaterally and diminished lung sounds Cardio: Rate: regular rate Rhythm: regular rhythm Heart sounds: S1 normal heart sound present and S2 normal heart sound present GI: Palpation (GI): Soft to palpation and nontender : General: Yes no CVA tenderness Back/Spine/Pelvis: Back: no CVA tenderness Skin: Rashes: no rashes Neuro: Other: no tremor, no asterixis. General: patient oriented x3 and moves all extremities Extrem: General: Yes edema Objective Data Labs 11/19/24 10:50 11/17/24 08:54 Labs: Laboratory Results - last 24 hr 11/18/24 11/18/24 11/18/24 10:35 17:55 20:35 WBC RBC Hgb Hct MCV MCH MCHC RDW Plt Count MPV Absolute Nucleated RBC Nucleated RBC % (auto) POC Glucose 106 145 H Hep Bs Antigen Negative Hep Bs Antibody NONREACTIVE Hep B Core Total Ab Nonreactive 11/19/24 11/19/24 11/19/24 07:00 10:50 10:54 WBC 6.1 RBC 2.64 L Hgb 7.9 L Hct 23.1 L MCV 87.5 MCH 29.9 MCHC 34.2 RDW 14.6 Plt Count 124 L MPV 10.9 Absolute Nucleated RBC 0.000 Nucleated RBC % (auto) 0.0 POC Glucose 91 119 H Hep Bs Antigen Hep Bs Antibody Hep B Core Total Ab 11/19/24 15:54 WBC RBC Hgb Hct MCV MCH MCHC RDW Plt Count MPV Absolute Nucleated RBC Nucleated RBC % (auto) POC Glucose 83 Hep Bs Antigen Hep Bs Antibody Hep B Core Total Ab Procedures Date of Service Date of Service: 11/19/24 Assessment & Plan Assessment and plan (1) Anemia in chronic kidney disease (CKD): Status: Acute (2) CKD stage 5 due to type 2 diabetes mellitus: Status: Acute (3) Secondary hyperparathyroidism (of renal origin): Status: Acute (4) Hypertension: Status: Acute (5) Edema: Status: Acute Plan Edema improved with diuresis but still has anasarca . Needs renal replacement therapy. s/p permcath. HD for Lynette/Fri/Sat. Can be D/Denis on Sat after HD. Has an outpt HD spot in [facility] in [facility]( [phone]). Manager Radiation can liase with habilitation worker in the Unit prior to D/C. Time of HD 7.30 AM S/P Renal biopsy- dropped Hb- transfuse [address] scan to R/O perinephric hematoma; Hb stable after transfuison and holding. Workup so far negative, MIGUEL, Anca, ds DNA, SPEP, UPEP, serum free light chains all normal, hepatitis panel negative. Has ESRD is possibly secondary to diabetic kidney disease with poor control of blood sugars, Continue current medications for now. Time Spent With Patient Time: Total time managing care of this patient today ____ minutes. Progress Note: Quality Stroke Does the patient have a stroke diagnosis?: No
[2024-11-19 20:43] LABS: Glucose, Whole Blood 122 mg/dL (60-115)
[2024-11-19] MEDS: Mirtazapine 15 MG TABLET PO (20:47)
[2024-11-19] MEDS: traZODone HCL 50 MG TABLET PO (20:48)
[2024-11-19 21:17] LABS: Glucose, Whole Blood 127 mg/dL (60-115)
[2024-11-20] VITALS (11 sets, daily range): BP systolic 119–166; BP diastolic 60–91; PULSE 65–82; RESP 16–18; TEMP 36.7–37.8; O2SAT 93–96
[2024-11-20] MEDS: Acetaminophen 325 MG TABLET 650 MG PO (00:24)
[2024-11-20] MEDS: Melatonin 3 MG TABLET 6 MG PO ×2 (00:26→23:26)
[2024-11-20 07:00] LABS: Glucose, Whole Blood 75 mg/dL (60-115)
[2024-11-20] MEDS: Bumetanide 1 MG/4 ML VIAL 2 MG IVPUSH ×2 (10:02→17:34)
[2024-11-20] MEDS: Atorvastatin Calcium 80 MG TABLET PO (10:10)
[2024-11-20] MEDS: Isosorbide Dinitrate 20 MG TABLET PO ×3 (10:10→17:33)
[2024-11-20] MEDS: Sevelamer Carbonate Tablet 800 MG TABLET PO ×3 (10:10→16:22)
[2024-11-20] MEDS: ARIPiprazole 2 MG TABLET PO (10:10)
[2024-11-20] MEDS: calcitrioL 0.25 MCG CAPSULE PO (10:11)
[2024-11-20] MEDS: buPROPion HCl XL 150 MG TAB.ER.24H PO (10:11)
[2024-11-20] MEDS: cloNIDine HCL 0.1 MG TABLET 0.3 MG PO ×2 (10:11→20:26)
[2024-11-20] MEDS: carvediloL 25 MG TABLET PO ×2 (10:11→20:26)
[2024-11-20] MEDS: hydrALAZINE HCl 50 MG TABLET 100 MG PO ×3 (10:13→20:27)
[2024-11-20] MEDS: NIFEdipine ER 30 MG TAB.ER.24 60 MG PO (10:14)
[2024-11-20] MEDS: metOLazone 5 MG TABLET PO (10:14)
[2024-11-20] MEDS: Sertraline HCL 50 MG TABLET PO (10:15)
[2024-11-20] MEDS: 0.9 % Sodium Chloride Flush 3 ML SYRINGE IVFLUSH ×3 (10:16→20:33)
[2024-11-20] MEDS: Sodium Bicarbonate 650 MG TABLET 1300 MG PO ×2 (10:16→20:26)
[2024-11-20] MEDS: Sodium Polystyrene Sulfon/Sorb 15 GM/60 ML ORAL.SUSP 30 GM PO (10:26)
--- NOTE | 2024-11-20 10:33 | PC.NURSE ---
11/20/2024 10:34 AM, All AM meds administered near 10:30 AM secondary to patient was in dialysis. Shazia Barrett, MSN, RN, [facility] PN Instructor
--- NOTE | 2024-11-20 10:35 | P.PNIM_ITS ---
Subjective Subjective Date of Service: 11/20/24 Interval History: Feels better and no new issues tolerated first dialysis for another round of dialysis Physical Exam 2 Vital Signs: Vital Signs: Last Vital Signs Temp 98.5 F 11/20/24 09:47 Pulse 75 11/20/24 09:47 Resp 18 11/20/24 09:47 BP 162/91 H 11/20/24 09:47 Pulse Ox 96 11/20/24 09:47 O2 Del Method Room Air 11/20/24 09:47 O2 Flow Rate 2 11/18/24 16:45 BMI result Body Mass Index 35.1 Const: Other: General: AO X 3, no acute distress Resp: CTA bilateral CVS: S1,S2,RRR, anasarca GI: +BS, NT, no distention Skin: No rash ext: swelling to left arm signficantly much bigger than the other sise, bilat leg edema Neuro: motor grossly intact Psych: appropriate affect Objective Data Active Medications Acetaminophen (Acetaminophen 325 Mg Tablet) 650 mg PO Q6H PRN PRN Reason: Pain, Mild 1-3,fever,headache Last Admin: 11/20/24 00:24 Dose: 650 mg Documented By: BHUPINDER Aripiprazole (Aripiprazole 2 Mg Tablet) 2 mg PO DAILY [facility] Last Admin: 11/20/24 10:10 Dose: 2 mg Documented By: HORTENSIA Atorvastatin Calcium (Atorvastatin Calcium 80 Mg Tablet) 80 mg PO DAILY [facility] Last Admin: 11/20/24 10:10 Dose: 80 mg Documented By: HORTENSIA Benzocaine (Throat Lozenge, Medicated Lozenge) 1 lozenge MUCOUS MEM Q2H PRN PRN Reason: Sore Throat Bumetanide (Bumetanide 1 Mg/4 Ml Vial) 2 mg IVPUSH BID@0900,1700 [facility]; Protocol Last Admin: 11/20/24 10:02 Dose: 2 mg Documented By: ZARINA Comments: Given late. was in dialysis Bupropion HCl (Bupropion Hcl Xl 150 Mg Tab.Er.24h) 150 mg PO DAILY [facility] Last Admin: 11/20/24 10:11 Dose: 150 mg Documented By: HORTENSIA Calcitriol (Calcitriol 0.25 Mcg Capsule) 0.25 mcg PO DAILY [facility] Last Admin: 11/20/24 10:11 Dose: 0.25 mcg Documented By: HORTENSIA Calcium Carbonate (Calcium Carbonate 750 Mg Tab.Chew) 750 mg PO Q4H PRN PRN Reason: Heartburn Carvedilol (Carvedilol 25 Mg Tablet) 25 mg PO BID [facility]; Protocol Last Admin: 11/20/24 10:11 Dose: 25 mg Documented By: HORTENSIA Clonidine HCl (Clonidine Hcl 0.1 Mg Tablet) 0.3 mg PO BID [facility]; Protocol Last Admin: 11/20/24 10:11 Dose: 0.3 mg Documented By: HORTENSIA Dextrose (Dextrose 50 % 25 Gm/50 Ml Syringe) 25 gm IVPUSH Q15M PRN; Protocol PRN Reason: per Hypoglycemia Standing Ord. Last Admin: 11/13/24 08:36 Dose: 25 gm Documented By: ESTEPHANIE Glucose (Glucose Gel 15 Gm Gel..Gram.) 15 gm PO Q15M PRN; Protocol PRN Reason: per Hypoglycemia Standing Ord. Last Admin: 11/12/24 06:12 Dose: 15 gm Documented By: CYRIL Heparin Sodium (Porcine) (Heparin Sodium,Porcine 5,000 Unit/Ml Vial) 5,000 unit INTRACATH ONCE ONE Stop: 11/21/24 06:01 Hydralazine HCl (Hydralazine Hcl 50 Mg Tablet) 100 mg PO TID [facility]; Protocol Last Admin: 11/20/24 10:13 Dose: 100 mg Documented By: HORTENSIA Desmopressin Acetate 20 mcg/ (Sodium Chloride) 55 mls @ 100 mls/hr IV ONCE PRN PRN Reason: 30 min prior to renal biopsy Insulin Human Lispro (Insulin Lispro 100 Unit/Ml 3 Ml Vial) 0 unit SUBCUT QIDACHS [facility]; Protocol Last Admin: 11/20/24 10:30 Dose: Not Given Documented By: HORTENSIA Non-Admin Reason: No Insulin Coverage Comments: Out of range Isosorbide Dinitrate (Isosorbide Dinitrate 20 Mg Tablet) 20 mg PO TID@0800,1300,1800 [facility]; Protocol Last Admin: 11/20/24 10:10 Dose: 20 mg Documented By: HORTENSIA Labetalol HCl (Labetalol Hcl 100 Mg/20 Ml Vial) 10 mg IVPUSH Q4H PRN PRN Reason: BP > 170 Last Admin: 11/12/24 03:00 Dose: 10 mg Documented By: CYRIL Magnesium Hydroxide (Milk Of Magnesia 30 Ml Oral.Susp) 30 ml PO DAILY PRN PRN Reason: Constipation Last Admin: 11/18/24 12:36 Dose: 30 ml Documented By: GERMAIN Melatonin (Melatonin 3 Mg Tablet) 6 mg PO BEDTIME PRN PRN Reason: Insomnia Last Admin: 11/20/24 00:26 Dose: 6 mg Documented By: BHUPINDER Metolazone (Metolazone 5 Mg Tablet) 5 mg PO DAILY [facility] Last Admin: 11/20/24 10:14 Dose: 5 mg Documented By: HORTENSIA Mirtazapine (Mirtazapine 15 Mg Tablet) 15 mg PO BEDTIME [facility] Last Admin: 11/19/24 20:47 Dose: 15 mg Documented By: BHUPINDER Nifedipine (Nifedipine Er 30 Mg Tab.Er.24) 60 mg PO DAILY [facility]; Protocol Last Admin: 11/20/24 10:14 Dose: 60 mg Documented By: HORTENSIA Ondansetron HCl (Ondansetron Hcl 4 Mg/2 Ml Vial) 4 mg IVPUSH Q8H PRN PRN Reason: Nausea and Vomiting Oxycodone HCl (Oxycodone Hcl Immed Release 5 Mg Tablet) 5 mg PO Q6H PRN PRN Reason: Pain, Severe (Pain Scale 7-10) Last Admin: 11/16/24 15:17 Dose: 5 mg Documented By: BECKIE Sertraline HCl (Sertraline Hcl 50 Mg Tablet) 50 mg PO DAILY [facility] Last Admin: 11/20/24 10:15 Dose: 50 mg Documented By: HORTENSIA Sevelamer Carbonate (Sevelamer Carbonate Tablet 800 Mg Tablet) 800 mg PO TIDWM [facility] Last Admin: 11/20/24 10:10 Dose: 800 mg Documented By: HORTENSIA Sodium Bicarbonate (Sodium Bicarbonate 650 Mg Tablet) 1,300 mg PO BID [facility] Last Admin: 11/20/24 10:16 Dose: 1,300 mg Documented By: HORTENSIA Sodium Chloride (0.9 % Sodium Chloride Flush 3 Ml Syringe) [facility] Last Admin: 11/20/24 10:16 Dose: 3 ml Documented By: HORTENSIA Sodium Polystyrene Sulfonate (Sodium Polystyrene Sulfon/Sorb 15 Gm/60 Ml Oral.Susp) 30 gm PO DAILY [facility] Last Admin: 11/20/24 10:26 Dose: 30 gm Documented By: HORTENSIA Spironolactone (Spironolactone 25 Mg Tablet) 25 mg PO DAILY [facility]; Protocol Last Admin: 11/12/24 12:54 Dose: 25 mg Documented By: DENISE Trazodone HCl (Trazodone Hcl 50 Mg Tablet) 50 mg PO BEDTIME [facility] Last Admin: 11/19/24 20:48 Dose: 50 mg Documented By: BHUPINDER Labs 11/19/24 10:50 11/17/24 08:54 Labs: Laboratory Results - last 24 hr 11/19/24 11/19/24 11/19/24 10:50 10:54 15:54 MCV 87.5 MCH 29.9 MCHC 34.2 RDW 14.6 Plt Count 124 L MPV 10.9 Absolute Nucleated RBC 0.000 Nucleated RBC % (auto) 0.0 POC Glucose 119 H 83 11/19/24 11/19/24 11/20/24 20:40 21:14 06:56 MCV MCH MCHC RDW Plt Count MPV Absolute Nucleated RBC Nucleated RBC % (auto) POC Glucose 122 H 127 H 75 Assessment and Plan (1) Acute heart failure: Status: Inactive Assessment and Plan: for 59yo M with RACHEL on CPAP, HF with mildly reduced EF, DM2, HTN, HLD, and CKD5 with nephrotic-range proteinuria likely due to diabetic nephropathy sent in by 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 Last admitted here 10/21-10/26/24 for CHF exacerbation/volume overload. hypervolemia/Anasarca d/t MARII progression to CKD 5, nephrotic syndrome, s/p bx acute-chronic HF with mildly reduced EF bumetanide drip 1 mg/hr and also got metolazone 10 mg 11/13 and 11/14. 11/15 Changed to 2mg IV push bumex bid and add metolazone 5mg daily per nephrology monitor BNP/BMP/Mg + wts/I+O, Nephrology following, Cardiology consulted renal doppler no TAMMY CT-guided renal biopsy done 11/16, H/H down, get CT of abdomen Screen for light chain amyloidosis: SPEP with faint M-spike in gamma globulin region; BOWEN, UPEP, and sFLCR pending continue sevelamer, calcitriol, sodium bicarbonate, Kayexelate for high K as needed continue carvedilol, hydralazine, nifedipine; increase clonidine and Isordil; d/c'ed spironolactone updated TTE to check for progressive LV dysfunction; no significant change from 08/21 to 11/12 and atrial pressures are normal suggestive of hypervolemia driven more by nephrotic syndrome than HF and Cardiology has signed off Had dialysis catheter inserted on 11/18 and dialysis to be started today 11/19, then 11/20 and DC 11/21, has outpatient spot. Hep B screen is negative Anemia, chronic and acute from post kidney biopsy perinephric hemorrhage, s/p 2 units of RBC on 11/17, H/H improved, continue monitoring troponin indeterminate flat, likely due to CHF HLD continue statin mood disorder continue aripiprazole, bupropin, clonidine, mirtazapine, sertraline DM2 correction-dose lispro RA continue leflunomide, sulfasalazine VTE ppx SCDs, hold heparub d/t worsening anemia, dispo eventual home with VNA In my clinical judgment, the patient requires continued inpatient hospitalization for the following reasons: IV diuresis, and initiation of dialysis Total time managing care of this patient today: 40 minutes. Quality Stroke Does the patient have a stroke diagnosis?: No VTE Prior VTE?: No VTE Risk Level:: Medical - moderate - high VTE Device Contraindication: N/A - Device Ordered VTE Drug Contraindication: Treatment Not Indicated
[2024-11-20 10:54] LABS: Glucose, Whole Blood 123 mg/dL (60-115)
--- NOTE | 2024-11-20 13:49 | P.PNNP_ITS ---
Subjective Subjective Date of Service: 11/20/24 Principal diagnosis: Fluid overload Interval history: Feels better and no new issues tolerated first dialysis for another round of dialysis Physical Exam 2 Vital Signs: Vital Signs: Last Vital Signs Temp 98.9 F 11/20/24 10:51 Pulse 82 11/20/24 10:51 Resp 18 11/20/24 10:51 BP 124/76 11/20/24 12:32 Pulse Ox 96 11/20/24 10:51 O2 Del Method Room Air 11/20/24 10:51 O2 Flow Rate 2 11/18/24 16:45 BMI result Body Mass Index 35.1 Const: Other: Anasarca General: no acute distress Orientation/consciousness: patient oriented x3 Eyes: EOM: EOMs intact bilaterally Neck: Neck: Yes supple Resp: Effort & Inspection: normal respiratory effort and able to speak in complete sentences Auscultation: clear to auscultation bilaterally and diminished lung sounds Cardio: Rate: regular rate Rhythm: regular rhythm Heart sounds: S1 normal heart sound present and S2 normal heart sound present GI: Palpation (GI): Soft to palpation and nontender : General: Yes no CVA tenderness Back/Spine/Pelvis: Back: no CVA tenderness Skin: Rashes: no rashes Neuro: Other: no tremor, no asterixis. General: patient oriented x3 and moves all extremities Extrem: General: Yes edema Objective Data Labs 11/19/24 10:50 11/17/24 08:54 Labs: Laboratory Results - last 24 hr 11/19/24 11/19/24 11/19/24 15:54 20:40 21:14 POC Glucose 83 122 H 127 H 11/20/24 11/20/24 06:56 10:47 POC Glucose 75 123 H Procedures Date of Service Date of Service: 11/20/24 Assessment & Plan Assessment and plan (1) Anemia in chronic kidney disease (CKD): Status: Acute (2) CKD stage 5 due to type 2 diabetes mellitus: Status: Acute (3) Secondary hyperparathyroidism (of renal origin): Status: Acute (4) Hypertension: Status: Acute (5) Edema: Status: Acute Plan Edema improved with diuresis but still has anasarca . on renal replacement therapy. s/p permcath. Started HD on 11/19/24 Hd again today and tomorrow Can be D/Denis on Sat after HD. Has an outpt HD spot in [facility] HD Unit in [facility]( [phone]). Medical Record Transcriber can liase with general farmworker in the Unit prior to D/C. Time of HD 7.30 AM S/P Renal biopsy- dropped Hb- transfuse [address] scan to R/O perinephric hematoma; Hb stable after transfuison and holding. Workup so far negative, MIGUEL, Anca, ds DNA, SPEP, UPEP, serum free light chains all normal, hepatitis panel negative. Has ESRD is possibly secondary to diabetic kidney disease with poor control of blood sugars, Continue current medications for now. Time Spent With Patient Time: Total time managing care of this patient today ____ minutes. Progress Note: Quality Stroke Does the patient have a stroke diagnosis?: No
[2024-11-20 16:10] LABS: Glucose, Whole Blood 128 mg/dL (60-115)
[2024-11-20] MEDS: Calcium Carbonate 750 MG TAB.CHEW PO (17:34)
[2024-11-20] MEDS: traZODone HCL 50 MG TABLET PO (20:27)
[2024-11-20] MEDS: Mirtazapine 15 MG TABLET PO (20:27)
[2024-11-20 20:59] LABS: Glucose, Whole Blood 109 mg/dL (60-115)
[2024-11-21] VITALS (7 sets, daily range): BP systolic 120–144; BP diastolic 55–75; PULSE 62–77; RESP 16–20; TEMP 36.6–37.7; O2SAT 92–98
[2024-11-21 07:29] LABS: Glucose, Whole Blood 78 mg/dL (60-115)
[2024-11-21 09:17] LABS: Hematocrit 28.4 % (42.0-52.0); Hemoglobin 9.4 g/dl (14.0-18.0); Mean Corpuscular HGB Conc 33.1 g/dl (31.0-36.0); Mean Corpuscular Hemoglobin 29.7 pg (27.0-33.0); Mean Corpuscular Volume 89.9 fL (80.0-98.0); Platelet Count 153 X10*3/uL (160-400); Red Blood Count 3.16 X10*6/uL (4.60-5.80); Red Cell Distribution Width 13.9 % (11.0-16.0); White Blood Count 5.4 X10*3/uL (4.8-10.8)
[2024-11-21 10:02] LABS: Anion Gap 15 (12-20); Blood Urea Nitrogen 21 mg/dL (9-16); Calcium 8.7 mg/dL (8.4-10.2); Carbon Dioxide 28 mmol/L (22-29); Chloride 99 mmol/L (96-108); Creatinine Clr Calc Pharmacy 32.5; Estimated Glomerular Filt Rate 23; Glucose Random 71 mg/dL (60-115); Potassium 2.8 mmol/L (3.3-5.1); Sodium 139 mmol/L (135-145)
--- NOTE | 2024-11-21 10:18 | PM.DS ---
DS: Providers Provider Date of Service: 11/21/24 Date of admission: 11/11/24 15:22 Date of discharge: 11/21/24 Primary care physician: Chris Boucher III, MD Consults: 11/11/24 15:23 Consult to Cardiology Routine Consulting Provider: [facility] Reason for consultation: trop elev Consult to Nephrology Routine Consulting Provider: [facility] Reason for consultation: MARII DS: Diagnosis Discharge Diagnosis (1) Anemia in chronic kidney disease (CKD): Status: Acute (2) CKD stage 5 due to type 2 diabetes mellitus: Status: Acute (3) Secondary hyperparathyroidism (of renal origin): Status: Acute (4) Hypertension: Status: Acute (5) Edema: Status: Acute DS: Summary Hospital Course Hospital Course: Admiting Chief Complaint: edema, dyspnea 59yo M with RACHEL on CPAP, HF with mildly reduced EF, DM2, HTN, HLD, and CKD5 with nephrotic-range proteinuria likely due to diabetic nephropathy sent in by his shank maker, Dr Wily Mims, for worsening renal function in the setting of peripheral edema of the legs and hands along with orthopnea and generalized weakness. He notes metallic taste in his mouth. Last admitted here 10/21-10/26/24 for CHF exacerbation/volume overload requiring furosemide drip. Creatinine is now above 6 and BUN 75-90. He is being admitted for bumetanide infusion and renal biopsy. He denies chest pain, fever, or cough. hospital course: for 59yo M with RACHEL on CPAP, HF with mildly reduced EF, DM2, HTN, HLD, and CKD5 with nephrotic-range proteinuria likely due to diabetic nephropathy sent in by his shank maker, Dr Wily Mims, for worsening renal function in the setting of peripheral edema of the legs and hands along with orthopnea and generalized weakness. Last admitted here 10/21-10/26/24 for CHF exacerbation/volume overload. hypervolemia/Anasarca d/t MARII progression to CKD 5, nephrotic syndrome, s/p bx acute-chronic HF with mildly reduced EF bumetanide drip 1 mg/hr and also got metolazone 10 mg 11/13 and 11/14. 11/15 Changed to 2mg IV push bumex bid and add metolazone 5mg daily per nephrology monitor BNP/BMP/Mg + wts/I+O, Nephrology following, Cardiology consulted renal doppler no TAMMY CT-guided renal biopsy done 11/16, H/H down, get CT of abdomen Screen for light chain amyloidosis: SPEP with faint M-spike in gamma globulin region; BOWEN, UPEP, and sFLCR pending continue sevelamer, calcitriol, sodium bicarbonate, Kayexelate for high K as needed continue carvedilol, hydralazine, nifedipine; increase clonidine and Isordil; d/c'ed spironolactone updated TTE to check for progressive LV dysfunction; no significant change from 08/21 to 11/12 and atrial pressures are normal suggestive of hypervolemia driven more by nephrotic syndrome than HF and Cardiology has signed off Had dialysis catheter inserted on 11/18 and dialysis to be started today 11/19, then 11/20 and DC 11/21, has outpatient spot. Hep B screen is negative Anemia, chronic and acute from post kidney biopsy perinephric hemorrhage, s/p 2 units of RBC on 11/17, H/H improved, continue monitoring troponin indeterminate flat, likely due to CHF HLD continue statin mood disorder continue aripiprazole, bupropin, clonidine, mirtazapine, sertraline DM2 correction-dose lispro RA continue leflunomide, sulfasalazine VTE ppx SCDs, hold heparub d/t worsening anemia, dispo eventual home with VNA Time Attestation Discharge Coordination Time (in mins): 45 Quality: Safe Use of Opioids Does Pt have an Active Cancer Diagnosis on the Problem List?: No Quality: Stroke Does the patient have a stroke diagnosis?: No Physical Exam Vital Signs: Vital Signs: Last Vital Signs Temp 97.9 F 11/21/24 07:35 Pulse 62 11/21/24 07:35 Resp 20 11/21/24 07:35 BP 143/55 H 11/21/24 07:35 Pulse Ox 98 11/21/24 07:35 O2 Del Method Room Air 11/21/24 07:35 O2 Flow Rate 2 11/18/24 16:45 BMI result Body Mass Index 35.1 DS: Data Data Completed and Pending Completed studies during hospitalization [Text1]: Pending at discharge 11/16/24 11:37 Surgical Path [Surgical] [PTH] Routine Procedures Assistance with Respiratory Ventilation, Less than 24 Consecutive Hours, Continuous Positive Airway Pressure (10/21/24) Transfusion of Nonautologous Red Blood Cells into Peripheral Vein, Percutaneous Approach (10/21/24) Labs on day of discharge: Laboratory Results - last 24 hr 11/20/24 11/20/24 11/20/24 10:47 16:03 20:51 WBC RBC Hgb Hct MCV MCH MCHC RDW Plt Count MPV Absolute Nucleated RBC Nucleated RBC % (auto) Sodium Potassium Chloride Carbon Dioxide Anion Gap BUN Creatinine Estim Creat Clear Calc Estimated GFR POC Glucose 123 H 128 H 109 Random Glucose Calcium 11/21/24 11/21/24 07:23 08:47 WBC 5.4 RBC 3.16 L Hgb 9.4 L Hct 28.4 L D MCV 89.9 MCH 29.7 MCHC 33.1 RDW 13.9 Plt Count 153 L MPV 11.0 Absolute Nucleated RBC 0.000 Nucleated RBC % (auto) 0.0 Sodium 139 Potassium 2.8 L* D Chloride 99 Carbon Dioxide 28 Anion Gap 15 BUN 21 H Creatinine 2.80 H Estim Creat Clear Calc 32.5 Estimated GFR 23 POC Glucose 78 Random Glucose 71 Calcium 8.7 D Discharge Plan Discharge Anticipated Discharge Date/Time: 11/21/24 15:22 Patient Disposition: Home, Self-Care Discharge Diagnosis: End stage renal disease Referrals: [facility] [Other] - 1 Week Chris Boucher III, MD [Primary Care Provider] - 1 Week Discharge Medications: New nifedipine 30 mg Tablet Extended Release 24hr 60 mg PO DAILY Qty: 90 0RF Protocol: Hold for SBP< HOLD for SBP < : 90 isosorbide dinitrate 20 mg Tablet 20 mg PO TID@0800,1300,1800 Qty: 20 0RF Protocol: Hold for SBP< HOLD for SBP < : 90 hydralazine 50 mg Tablet 100 mg PO TID Qty: 270 0RF Protocol: Hold for SBP< HOLD for SBP < : 90 clonidine HCl 0.1 mg Tablet 0.3 mg PO BID Qty: 180 0RF Protocol: Hold for SBP< HOLD for SBP < : 90 bumetanide 2 mg tablet 2 mg PO BID Qty: 180 0RF Continued carvedilol 25 mg tablet 25 mg PO BID Qty: 180 1RF Protocol: Hold for SBP/HR < HOLD for SBP < : 90 HOLD for HR < : 60 sertraline 50 mg tablet 50 mg PO DAILY atorvastatin 80 mg tablet 80 mg PO BEDTIME trazodone 50 mg tablet 50 mg PO BEDTIME spironolactone 25 mg tablet 25 mg PO DAILY sodium bicarbonate 650 mg tablet 1,300 mg PO BID mirtazapine 15 mg tablet 15 mg PO BEDTIME zolpidem 10 mg tablet 10 mg PO BEDTIME calcitriol 0.25 mcg capsule 0.25 mcg PO DAILY bupropion HCl [Wellbutrin XL] 150 mg tablet extended release 24 hr 150 mg PO DAILY aripiprazole [Abilify] 2 mg tablet 2 mg PO DAILY sevelamer carbonate 800 mg tablet 800 mg PO TIDWM dapagliflozin propanediol [Farxiga] 5 mg tablet 5 mg PO DAILY cholecalciferol (vitamin D3) 1,250 mcg (50,000 unit) capsule 1,250 mcg PO QWEEK Discontinued sodium polystyrene sulfonate Powder 30 g PO DAILY 30 Days Qty: 453.6 1RF clonidine HCl 0.1 mg tablet 0.1 mg PO BID hydralazine 10 mg tablet 20 mg PO BID rosuvastatin 40 mg tablet 40 mg PO DAILY No Action (DME) blood pressure monitor [Blood Pressure Kit] Kit See Rx Instructions .ROUTE .MEDSUPPLY Qty: 1 0RF Rx Instructions: As directed Discharge Orders: Discharge Order (Routine); Ordered 11/21/24 Ordered By: Dashawn Juárez Diet: Advance to usual diet Activity on Discharge: As tolerated Stand Alone Forms: Patient Portal Discharge page Print Language: Setswana Care Plan Goals: recovery from volume overloaded from end stage renal disese Health Concerns: ESRD no on dialysis chronic anemia Plan of Treatment: Follow up with dialysis as schedule Saturday, , Saturday at 7. 30 in the morning [facility] Unit in [facility] ( [phone]).?[address] [place] [address] Assessment: see above Patient Instructions: Hemodialysis (DC)
[2024-11-21] MEDS: Potassium Chloride ER 20 MEQ TAB.ER.PRT 40 MEQ PO (10:21)
[2024-11-21] MEDS: ARIPiprazole 2 MG TABLET PO (10:22)
[2024-11-21] MEDS: Sodium Bicarbonate 650 MG TABLET 1300 MG PO (10:22)
[2024-11-21] MEDS: carvediloL 25 MG TABLET PO (10:22)
[2024-11-21] MEDS: buPROPion HCl XL 150 MG TAB.ER.24H PO (10:23)
[2024-11-21] MEDS: metOLazone 5 MG TABLET PO (10:23)
[2024-11-21] MEDS: Sevelamer Carbonate Tablet 800 MG TABLET PO ×2 (10:23→12:26)
[2024-11-21] MEDS: Atorvastatin Calcium 80 MG TABLET PO (10:23)
[2024-11-21] MEDS: cloNIDine HCL 0.1 MG TABLET 0.3 MG PO (10:23)
[2024-11-21] MEDS: hydrALAZINE HCl 50 MG TABLET 100 MG PO (10:23)
[2024-11-21] MEDS: Bumetanide 1 MG/4 ML VIAL 2 MG IVPUSH (10:24)
[2024-11-21] MEDS: NIFEdipine ER 30 MG TAB.ER.24 60 MG PO (10:24)
[2024-11-21] MEDS: Sertraline HCL 50 MG TABLET PO (10:24)
[2024-11-21] MEDS: Isosorbide Dinitrate 20 MG TABLET PO ×2 (10:24→12:26)
[2024-11-21] MEDS: calcitrioL 0.25 MCG CAPSULE PO (10:24)
[2024-11-21] MEDS: 0.9 % Sodium Chloride Flush 3 ML SYRINGE IVFLUSH (10:28)
[2024-11-21 11:57] LABS: Glucose, Whole Blood 194 mg/dL (60-115)
[2024-11-21] MEDS: Insulin Lispro 100 UNIT/ML 3 ML VIAL SUBCUT (12:26)
[2024-11-21 15:21] LABS: Anion Gap 14 (12-20); Carbon Dioxide 29 mmol/L (22-29); Chloride 100 mmol/L (96-108); Sodium 139 mmol/L (135-145)
--- NOTE | 2024-11-21 16:00 | MHC.CM.PN ---
Patient has been medically cleared for dc today. Patient is active with [facility], who has been notified of today's dc.
== END 2024-11-21 16:10 | disposition home or self-care (01) | DRG 194 ==
LOC: HO.ED 15:09 → HO.EDOVER 15:26 → HO.IMC 11-12 07:30
PROVIDERS: Physician Assistant; Physician Assistant Medical; Radiology Diagnostic Radiology; Admitting Provider Family Medicine; Emergency Provider Emergency Medicine; PCP Internal Medicine; Visit Provider Internal Medicine
PROC: 0TB03ZX Excision of Right Kidney, Percutaneous Approach, Diagnostic (ICD-10-PCS; principal; 2024-11-16 10:30)
DX: I13.2 Hypertensive heart and chronic kidney disease with heart failure and with stage 5 chronic kidney disease, or end stage renal disease (principal); E11.22 Type 2 diabetes mellitus with diabetic chronic kidney disease; D62 Acute posthemorrhagic anemia; N18.6 End stage renal disease; I50.23 Acute on chronic systolic (congestive) heart failure; D63.1 Anemia in chronic kidney disease; N99.820 Postprocedural hemorrhage of a genitourinary system organ or structure following a genitourinary system procedure; Y84.8 Other medical procedures as the cause of abnormal reaction of the patient, or of later complication, without mention of misadventure at the time of the procedure; E78.2 Mixed hyperlipidemia; M06.9 Rheumatoid arthritis, unspecified; G47.33 Obstructive sleep apnea (adult) (pediatric); Z99.2 Dependence on renal dialysis; Z20.822 Contact with and (suspected) exposure to COVID-19; Z87.891 Personal history of nicotine dependence; Z79.899 Other long term (current) drug therapy
CPT/HCPCS: 0241U; 36415; 36558; 50200; 71046; 74176; 76775; 77012; 80048; 80051; 80053; 81001; 82570; 82607; 82728; 82746; 82784; 82947; 83540; 83615; 83735; 83880; 83883; 84156; 84165; 84166; 84484; 85025; 85027; 85045; 85610; 86334; 86335; 86704; 86706; 86850; 86900; 86901; 86923; 87340; 87651; 88300; 88305; 88313; 88346; 88348; 88350; 90999; 93005; 93306; 93971; 93975; 99152; 99285; C1750; C1769; J1644; J1920; J1939; J2003; J2150; J2250; J2597; J3010; P9016; Q9957

== ENCOUNTER → 2024-11-11 13:08 | Outpatient (BNV) | payer OTHER, SELFPAY | PROVIDERS: PCP Internal Medicine; Visit Provider Radiology Diagnostic Radiology | DX: E87.70 Fluid overload, unspecified (principal); R06.02 Shortness of breath | CPT/HCPCS: 71046 ==

== ENCOUNTER → 2024-11-11 13:08 | Outpatient (BNV) | payer OTHER, SELFPAY | PROVIDERS: Admitting Provider Family Medicine; Emergency Provider Emergency Medicine; PCP Internal Medicine; Visit Provider Internal Medicine Cardiovascular Disease | DX: R94.31 Abnormal electrocardiogram [ECG] [EKG] (principal); R06.02 Shortness of breath | CPT/HCPCS: 93010 ==

== ENCOUNTER 2024-11-11 15:22 | Outpatient (BNV) | payer OTHER, SELFPAY | END 2024-11-12 14:06 | PROVIDERS: Admitting Provider Family Medicine; Emergency Provider Emergency Medicine; PCP Internal Medicine; Visit Provider Internal Medicine Cardiovascular Disease | DX: I50.9 Heart failure, unspecified (principal); I51.7 Cardiomegaly; I35.8 Other nonrheumatic aortic valve disorders | CPT/HCPCS: 93306 ==

== ENCOUNTER 2024-11-11 15:22 | Outpatient (BNV) | payer OTHER, SELFPAY | END 2024-11-18 11:58 | PROVIDERS: Admitting Provider Family Medicine; Emergency Provider Emergency Medicine; PCP Internal Medicine; Visit Provider Radiology Diagnostic Radiology | DX: N28.89 Other specified disorders of kidney and ureter (principal) | CPT/HCPCS: 36558; 76775; 76937; 77001; 99152 ==

== ENCOUNTER 2024-11-11 15:22 | Outpatient (BNV) | payer OTHER, SELFPAY | END 2024-11-17 09:34 | PROVIDERS: Admitting Provider Family Medicine; Emergency Provider Emergency Medicine; PCP Internal Medicine; Visit Provider Radiology Diagnostic Radiology | DX: S37.021A Major contusion of right kidney, initial encounter (principal); K68.3 Retroperitoneal hematoma; J90 Pleural effusion, not elsewhere classified | CPT/HCPCS: 74176 ==

== ENCOUNTER 2024-11-11 15:22 | Outpatient (BNV) | payer OTHER, SELFPAY | END 2024-11-12 07:00 | PROVIDERS: Admitting Provider Family Medicine; Emergency Provider Emergency Medicine; PCP Internal Medicine; Visit Provider Radiology Diagnostic Radiology | DX: N17.9 Acute kidney failure, unspecified (principal) | CPT/HCPCS: 76775; 93975 ==

== ENCOUNTER 2024-11-11 15:22 | Outpatient (BNV) | payer OTHER, SELFPAY | END 2024-11-16 11:04 | PROVIDERS: Admitting Provider Family Medicine; Emergency Provider Emergency Medicine; PCP Internal Medicine; Visit Provider Radiology Diagnostic Radiology | DX: N17.9 Acute kidney failure, unspecified (principal); R22.42 Localized swelling, mass and lump, left lower limb | CPT/HCPCS: 50200; 77012; 93971 ==

== ENCOUNTER → 2024-11-11 15:22 | Outpatient (BNV) | payer OTHER, SELFPAY | PROVIDERS: Admitting Provider Family Medicine; Emergency Provider Emergency Medicine; PCP Internal Medicine; Visit Provider Internal Medicine Critical Care Medicine | DX: I12.0 Hypertensive chronic kidney disease with stage 5 chronic kidney disease or end stage renal disease (principal); I13.10 Hypertensive heart and chronic kidney disease without heart failure, with stage 1 through stage 4 chronic kidney disease, or unspecified chronic kidney disease; E11.22 Type 2 diabetes mellitus with diabetic chronic kidney disease; N18.5 Chronic kidney disease, stage 5 | CPT/HCPCS: 99232 ==

== ENCOUNTER → 2024-11-11 15:22 | Outpatient (BNV) | payer OTHER, SELFPAY | PROVIDERS: Admitting Provider Family Medicine; Emergency Provider Emergency Medicine; PCP Internal Medicine; Visit Provider Nurse Practitioner Family | DX: E11.22 Type 2 diabetes mellitus with diabetic chronic kidney disease (principal); N18.5 Chronic kidney disease, stage 5; R60.0 Localized edema | CPT/HCPCS: 99222; 99232 ==

== ENCOUNTER → 2024-11-11 15:22 | Outpatient (BNV) | payer OTHER, SELFPAY | PROVIDERS: Admitting Provider Family Medicine; Emergency Provider Emergency Medicine; PCP Internal Medicine; Visit Provider Internal Medicine Cardiovascular Disease | DX: R60.1 Generalized edema (principal) | CPT/HCPCS: 99222; 99232 ==

== ENCOUNTER → 2024-11-11 15:22 | Outpatient (BNV) | payer OTHER, SELFPAY | PROVIDERS: Admitting Provider Family Medicine; Emergency Provider Emergency Medicine; PCP Internal Medicine; Visit Provider Family Medicine | DX: N17.9 Acute kidney failure, unspecified (principal); N18.9 Chronic kidney disease, unspecified; I50.9 Heart failure, unspecified | CPT/HCPCS: 99223; 99233 ==

== ENCOUNTER → 2024-12-15 23:59 | Outpatient (BNV) | payer OTHER, SELFPAY | PROVIDERS: PCP Internal Medicine; Visit Provider Internal Medicine Nephrology | DX: N18.6 End stage renal disease (principal) | CPT/HCPCS: 90961 ==

== ENCOUNTER 2025-01-14 14:19 | Outpatient (AMB) | payer OTHER, SELFPAY ==
--- OUTSIDE RECORDS SUMMARY | 2025-01-14 14:31 | XMS_ITS | Clinical Summary ---
Author Organization [facility], Address [address] [place] [address] Phone Care Team Providers Care High Lift Operator Name Role Phone Chris Boucher MD Primary Care Provider [phone] Allergies No known active allergies Medications zolpidem (AMBIEN) 10 MG tablet Take 10 mg by mouth 1 (one) time each day in the evening 4 Active sertraline (ZOLOFT) 100 MG tablet Take 100 mg by mouth in the morning. 4 Active rosuvastatin (CRESTOR) 40 MG tablet Take 40 mg by mouth in the morning. 4 Active predniSONE (DELTASONE) 10 MG tablet Take [...] tablet 4 Active Insulin Pen Needle (Pen [place]) 32G X 4 MM misc 1 Device by Does not apply route daily. 9 Active hydrALAZINE (APRESOLINE) 10 MG tablet Take 20 mg by mouth in the morning and 20 mg at noon and 20 mg in the evening. 5 Active ARIPiprazole (ABILIFY) 2 MG tablet Take 2 mg by mouth 1 (one) time each day 5 Active atorvastatin (LIPITOR) 80 MG tablet Take 80 mg by mouth 1 (one) time each day in the evening Active calcitriol (ROCALTROL) 0.25 MCG capsule 5 Active carvedilol (COREG) 25 MG tablet take 1 tablet orally 2 times a day Active cloNIDine (CATAPRES) 0.1 MG tablet Take 0.1 mg by mouth 5 Active furosemide (LASIX) 20 MG tablet Take 20 mg by mouth 1 (one) time each day Active sevelamer carbonate (RENVELA) 800 MG tablet 5 Active mirtazapine (REMERON) 15 MG tablet Take 15 mg by mouth 1 (one) time each day in the evening 5 Active sodium bicarbonate 650 MG tablet 5 Active Lokelma 10 g pack 5 Active traZODone (DESYREL) 50 MG tablet Take 50 mg by mouth 1 (one) time each day in the evening 5 Active sulfaSALAzine (AZULFIDINE) 500 MG tablet 4 Active NIFEdipine CC (ADALAT CC) 90 MG 24 hr tablet Take 90 mg by mouth 1 (one) time each day before breakfast Do not crush, chew, or split. Active rosuvastatin (CRESTOR) 40 MG tablet Take 40 mg by mouth 1 (one) time each day Active sertraline (ZOLOFT) 50 MG tablet Take 50 mg by mouth 1 (one) time each day Active sulfaSALAzine (AZULFIDINE) 500 MG tablet Take 500 mg by mouth in the morning and 500 mg at noon and 500 mg in the evening and 500 mg before bedtime. Active B Mzqxuii-E-Jorps Acid (Oriana-Marbin) tablet Take 1 tablet by mouth 1 (one) time each day 5 Active bumetanide (BUMEX) 2 MG tablet Take 2 mg by mouth 5 Active midodrine (PROAMATINE) 10 MG tablet Take 1 tablet by mouth 5 Active losartan (COZAAR) 25 MG tablet Take 1 tablet by mouth in the morning. 5 Active cholecalciferol (D-3-5) 125 MCG (5000 UT) capsule Take 50,000 Units by mouth per week Active doxazosin (CARDURA) 2 MG tablet Take 2 mg by mouth every night Active Dapagliflozin Propanediol (Farxiga) 5 MG tablet Take 5 mg by mouth 1 (one) time each day in the morning Active leflunomide (ARAVA) 20 MG tablet Take 20 mg by mouth 1 (one) time each day Active buPROPion XL (WELLBUTRIN XL) 150 MG 24 hr tablet Take 150 mg by mouth 1 (one) time each day Do not crush, chew, or split. Active traZODone (DESYREL) 50 MG tablet Take 50 mg by mouth every night Active sodium polystyrene sulfonate (KAYEXALATE) powder Take 30 g by mouth 1 (one) time each day Active Active Problems Problem Noted Date Diagnosed Date Hypotension 12/31/2024 Hypertensive chronic kidney disease, malignant, with chronic kidney disease stage I through stage IV, or unspecified 12/14/2024 End stage renal disease 12/14/2024 Congestive heart failure 08/23/2023 COVID-19 09/28/2022 Vitamin deficiency 03/16/2019 Obstructive sleep apnea 06/21/2016 Essential hypertension 06/06/2015 Degeneration of cervical intervertebral disc Insomnia 02/05/2014 Alcohol dependence 08/21/2012 Type 2 diabetes mellitus 08/09/2011 Microalbuminuria 08/09/2011 Hyperlipidemia 08/09/2011 Obesity, class 1 07/18/2011 Major depressive disorder 07/18/2011 Asthma 07/18/2011 Encounters Date Type Department Care Team Description 01/01/2025 Telephone [facility] [address] [place] [address] [place] [phone] Maria Alejandra Poole 01/01/2025 Telephone [facility] [address] [place] [address] [place] [phone] Maria Alejandra Poole 12/31/2024 11:45 AM EDT Clinical Support [facility] [address] [place] [phone] Kareem Cowan MD Dizziness [R42] (Primary Dx); Excessive sweating [R61]; Orthostatic hypotension [I95.1]; End stage renal disease (HCC) [N18.6]; Type 2 diabetes mellitus, not otherwise specified (HCC) [E11.9] 12/31/2024 11:30 AM EDT Office Visit [facility] [address] [place] [address] Kareem Cowan MD End stage renal disease (HCC) (Primary Dx) 12/30/2024 Telephone [facility] [address] [place] [address] Cat Vega 10/21/2024 Orders Only [facility] [address] [phone] Fracisco Dillard MD 10/21/2024 Office Communication [facility] [address] [phone] Fracisco Dillard MD from Last 3 Months Social History Tobacco Use Types Packs/Day Years Used Date Smoking Tobacco: Never Assessed Sex and Gender Information Value Date Recorded Sex Assigned at Not on file Legal Sex Male 11:17 AM EDT Gender Identity Not on file Sexual Orientation Not on file Last Filed Vital Signs Vital Sign Reading Time Taken Comments Blood Pressure 111/75 12/31/2024 2:40 PM EDT Pulse 68 12/31/2024 2:40 PM EDT Temperature 36.7 C (98.1 F) 12/31/2024 2:40 PM EDT Respiratory Rate 16 12/31/2024 12:06 PM EDT Oxygen Saturation 94% 12/31/2024 2:40 PM EDT Inhaled Oxygen Concentration - - Weight 81.6 kg (180 lb) 12/31/2024 2:40 PM EDT Height 172.7 cm (5' 8 ) 12/31/2024 2:40 PM EDT Body Mass Index 27.37 12/31/2024 2:40 PM EDT Plan of Treatment Health Maintenance Due Date Last Done Comments Colorectal Cancer Screening: Annual FOBT 02/29/2012 Colorectal Cancer Screening: Colonoscopy 02/29/2012 Colorectal Cancer Screening: Sigmoidoscopy 02/29/2012 Pneumococcal Vaccine: 50+ Years (2 of 2 - PCV) 02/11/2015 02/11/2014 Diabetes: Hemoglobin A1C 12/28/2024 01/28/2024 Diabetes: Ophthalmology Exam 12/28/2024, 03/01/2015, 05/21/2013, Additional history exists Diabetes: Pedal Pulse Checked 12/28/2024 Diabetes: Sensory Foot Exam 12/28/2024 Diabetes: Visual Foot Exam 12/28/2024 Influenza Vaccine (#1) 2025 2, 04/17/2021, 03/27/2017, Additional history exists Hepatitis B Vaccine Aged Out No longe [...] Chronic kidney disease, stage 4 (severe) (HCC) from Last 3 Months Results * (ABNORMAL) Iron Panel (Fe, TIBC, TSAT) (10/16/2024 12:03 PM EDT) TIBC 161(L) 250 - 450 ug/dL [facility] UIBC 128 111 - 343 ug/dL [facility] Iron 33(L) 38 - 169 ug/dL [facility] Iron Saturation (TSat) 20 15 - 55 % [facility] Blood specimen (specimen) Venous blood / Unknown 10/16/2024 12:03 PM EDT 10/16/2024 us Fracisco Dillard MD LAB BLOOD ORDERABLES Final Resul t [facility] [address] [place] [address] * (ABNORMAL) CBC without diff (10/16/2024 12:03 PM EDT) WBC 6.3 3.4 - 10.8 x10E3/uL [facility] RBC 2.82(L) 4.14 - 5.80 x10E6/uL [facility] Hemoglobin 8.4(L) 13.0 - 17.7 g/dL [facility] Hematocrit 25.3(L) 37.5 - 51.0 % [facility] MCV 90 79 - 97 fL [facility] MCH 29.8 26.6 - 33.0 pg [facility] MCHC 33.2 31.5 - 35.7 g/dL [facility] RDW 15.9(H) 11.6 - 15.4 % [facility] Platelets 168 150 - 450 x10E3/uL [facility] Blood specimen (specimen) Venous blood / Unknown 10/16/2024 12:03 PM EDT 10/16/2024 us Fracisco Dillard MD LAB BLOOD ORDERABLES Final Resul t [facility] [address] [place] [address] * (ABNORMAL) Ferritin (10/16/2024 12:03 PM EDT) Ferritin 438(H) 30 - 400 ng/mL [facility] Blood specimen (specimen) Venous blood / Unknown 10/16/2024 12:03 PM EDT 10/16/2024 Fracisco Dillard MD LAB BLOOD ORDERABLES Final Resul t [facility] [address] [place] [address] * (ABNORMAL) Renal funtion panel (10/16/2024 12:03 PM EDT) Glucose 100(H) 70 - 99 mg/dL [facility] BUN 90(HH) 8 - 27 mg/dL [facility] Creatinine 5.81(H) 0.76 - 1.27 mg/dL [facility] eGFR CKD-EPI CR 2020 10(L) >59 mL/min/1.7 3 [facility] BUN/Creatinine Ratio 15 10 - 24 [facility] Sodium 140 134 - 144 mmol/L [facility] Potassium 6.0(H) 3.5 - 5.2 mmol/L [facility] Chloride 111(H) 96 - 106 mmol/L [facility] Bicarbonate (CO2) 15(L) 20 - 29 mmol/L [facility] Calcium 7.9(L) 8.6 - 10.2 mg/dL [facility] Albumin 2.8(L) 3.9 - 4.9 g/dL [facility] Phosphorus 6.1(H) 2.8 - 4.1 mg/dL [facility] Blood specimen (specimen) Venous blood / Unknown 10/16/2024 12:03 PM EDT 10/16/2024 us Fracisco Dillard MD LAB BLOOD ORDERABLES Final Resul t [facility] [address] [place] [address] from Last 3 Months Insurance Medicaid Medicaid Care Teams High Lift Operator Relationship Specialty Start Date End Date Chris Boucher MD [address] [place] [phone] PCP - General Internal Medicine 12/28/24
--- OUTSIDE RECORDS SUMMARY | 2025-01-14 14:31 | XMS_ITS ---
Author Name [facility] Organization Unknown Care Team Organization Name Specialty Phone Email Start Date End Da te [facility] MELYSSA COLBERT Primary Care 08/22/2022 4 [facility] Ozzie Hardy Primary Care 04/24/2022 024
--- OUTSIDE RECORDS SUMMARY | 2025-01-14 14:31 | XMS_ITS | Encounter Summary ---
[facility] Organization [facility] Address [address] [place] [address] Care Team Providers Care Computerized Mill Mill Recorder Name Role Phone Chris Boucher MD Primary Care Provider [phone] Encounter Details Date Type Department Care Team (Late st Contact Info) Description 11/24/2024 Referral Triage [facility] Worker [address] [phone] Jagdeep Hilario Social History Tobacco Use Types Packs/Day Years Used Date Smoking Tobacco: Former Cigarettes 0.5 18.1 0 06/17/1992 - 08/01/2010 Smokeless Tobacco: Former Alcohol Use Standard Drinks/Week Comments Yes 0 (1 standard drink = 0.6 oz pur e alcohol) Housing Instability Answer Date Recorde d Are you worried that in the next 2 months you may not have stable housing? Yes 11/24/2024 Food Access & Nutrition Answer Date Rec orded Do you have access to a vari ety of food including fruits and vegetables? Yes 11/24/2024 Access to Healthcare Answer Date Record ed Within the last 3 months, ho w many times did you visit the emergency department for your medical care? 3 11/24/2024 Financial Risk Answer Date Recorded How hard is it for you to pa y for the very basics like food, housing, medical care, and air conditioning / heating? Very hard 11/24/2024 Transportation Answer Date Recorded Has the lack of transportati on kept you from meetings, work, or from getting things needed for daily living? No Has the lack of transportati on kept you from medical appointments or from getting medications? No 11/24/2024 Food Risk Answer Date Recorded Within the past 12 months we worried whether our food would run out before we got money to buy more. Sometimes true 025 Within the past 12 months th e food we bought just didn't last and we didn't have money to get more. Often true 11/24/2024 Employment and Income Answer Date Recor ded During the last four weeks, have you been actively looking for work? No 11/24/2024 Living Situation Answer Date Recorded What is your living situation? 0 11/24/2024 Sex and Gender Information Value Date Recorded Sex Assigned at Not on file Legal Sex Male 4:53 AM EST Gender Identity Not on file Sexual Orientation Not on file documented as of this encounter Progress Notes * Jagdeep Hilario - 11/24/2024 2:27 PM EDT Referral triage: Assigned to [place] (W) Reason for referral: pt has had a change in condition and no longer able to work. He is having a KULDIP assessment on 11/26 and could use outreach right after that to discuss any needs SIOH screen completed and + Jagdeep Hilario Community Health Worker (CHW) Fiber Glass Worker/Regional documented in this encounter Plan of Treatment Upcoming Encounters Date Type Department Care Team (Late st Contact Info) Description 03/01/2025 11:00 AM EDT Office Visit Adult Medicine [address] [phone] Chris Boucher MD [address] [place] [address] 03/10/2025 9:15 AM EDT Consult Orthopedic Surgery - [place] [address] [phone] Agustin Alvares, DPM [address] [address] 03/30/2025 10:00 AM EDT Ancillary Procedure [facility] [address] [place] [address] documented as of this encounter Visit Diagnoses Not on filedocumented in this encounter Additional Health Concerns Infection Onset Date Last Indicated Resolved Time Respiratory Rule-Out 12/02/2024 12/02/2024 025 10:55 PM EDT COVID-19 Rule-Out 12/02/2024 12/02/2024 12/02/2024 10:55 PM EDT documented as of this encounter Care Teams Computerized Mill Mill Recorder Relationship Specialty Start Date End Date Chris Boucher MD [address] [place] [phone] PCP - General Internal Medicine 09/06/14 documented as of this encounter
--- OUTSIDE RECORDS SUMMARY | 2025-01-14 14:31 | XMS_ITS ---
Author Name Tiffanie, Clinic Address [address] [place] [id number] Phone [phone] Organization [facility] e, NA DOCUMENT DISCLAIMER Multiple document versions may exist, please be sure you review the latest version. The information in the [facility] Continuity of Care Document represents a summary of certain health and medical information. It may not contain the complete medical history for the patient and should be independently verified. The represented time in the document is Eastern Time. PROBLEMS Problem Code Status Onset Date Hypotension, unspecified I95.9 Active Nov Other hypoglycemia E16.1 Active November 26, 2024 Secondary hyperparathyroidism of renal origin N25.81 Active November 26, 2024 Coagulation defect, unspecified D68.9 Active November 26, 2024 Anaphylactic shock, unspecified, initial encounter T78 .2XXA Active November 26, 2024 Encounter for screening for respiratory tuberculosis Z 11.1 Active November 26, 2024 Hyperglycemia, unspecified R73.9 Active J une 2024 Shortness of breath R06.02 Active November 26, 2024 Hypoglycemia, unspecified E16.2 Active Ju ne 2024 Anemia in chronic kidney disease D63.1 Active November 26, 2024 Pruritus, unspecified L29.9 Active November 152024 End stage renal disease N18.6 Active November 26, 2024 Allergy, unspecified, initial encounter T78.40XA A ctive November 26, 2024 Essential (primary) hypertension I10 Active November 26, 2024 Iron deficiency anemia, unspecified D50.9 Activ e November 26, 2024 ALLERGIES AND ADVERSE REACTIONS No Known Allergies SOCIAL HISTORY Tobacco Use Status Tobacco Type Former smoker Cigarettes Caregiver Characteristics Need Level ADL Type Relationship of Caregiver Requires some assistance Bathing Dressin g Shopping Meal preparation Laundry Housekeeping M edication management Managing medical appointments Managing finances Family Characteristics of Home environment Housing Status Patient Resides With House patient lives with s theresa La on the first floor and his daughter Gila and son in law Hunter live on the second floor Gender and Sex Information Gender Identity Sexual Orientation Male Heterosexual MEDICATIONS Prescribed Medications for Dialysis Treatments Medication Instructions Dosage Route Start Date End Date Status Heparin Sodium (Porcine) 1,000 Units/mL Catheter Lock Arterial Post Dialysis, Every Treatment 1800 units Arterial Red Port November 27, 2024 November 26, 2025 Active Heparin Sodium (Porcine) 1,000 Units/mL Catheter Lock Venous Post Dialysis, Every Treatment 1800 units Venous Blue Port November 27, 2024 November 26, 2025 Active Iron Sucrose (Venofer) During Dialysis, 3X Week 100 mg Intravenous - push December 02, 2024 December 23, 2024 Active Midodrine HCl (Proamatine) PRN-october repeat x2 10 mg Oral December 11, 2024 December 10, 2025 Active Mircera During Dialysis, Every 2 weeks 150 mcg Intravenous - push January 13, 2025 January 12, 2026 Active Vitamin D (Calcitriol) Oral Every Treatment 0.25 mcg Oral December 09, 2024 December 08, 2025 Active Iron Sucrose (Venofer) 1X Week 50 mg Intravenous - push December 30, 2024 December 29, 2025 Discontinued Mircera During Dialysis, Every 2 weeks 75 mcg Intravenous - push December 16, 2024 December 15, 2025 Discontinued Mircera During Dialysis, Every 2 weeks 100 mcg Intravenous - push December 30, 2024 December 29, 2025 Discontinued Tuberculin Purified Protein Derivative (Tubersol) Once 0.1 mL Intradermal December 30, 2024 Discontinued Home Medications Medication Instructions Dosage Route Start Date End Date Status aripiprazole 2 mg Take by mouth once a day 1 tablet ORAL December 14, 2024 Active atorvastatin 80 mg Take by mouth at bedtime 1 tablet ORAL December 14, 2024 Active bumetanide 2 mg Take by mouth twice a day 1 tablet ORAL December 14, 2024 Active cholecalciferol (vitamin D3) 1,250 mcg (50,000 unit) Take by mouth once a day 1 capsule ORAL December 07, 2024 Active doxazosin 2 mg Take by mouth at bedtime 1 tablet ORAL December 14, 2024 Active Farxiga 5 mg Take by mouth once a day 1 tablet ORAL December 14, 2024 Active leflunomide 20 mg Take by mouth once a day 1 tablet ORAL December 07, 2024 Active losartan 25 mg Take by mouth once a day 1 tablet ORAL December 30, 2024 Active midodrine 10 mg Take by mouth every morning 1 tablet ORAL December 30, 2024 Active mirtazapine 15 mg Take by mouth at bedtime 1 tablet ORAL December 14, 2024 Active Nephro-Marbin 0.8 mg Take by mouth once a day 1 tablet ORAL December 14, 2024 Active rosuvastatin 40 mg Take by mouth once a day 1 tablet ORAL December 07, 2024 Active sevelamer carbonate 800 mg Take by mouth three times a day with meals 1 tablet ORAL December 14, 2024 Active sodium polystyrene sulfonate 15 gram Take by mouth once a day 30 gram ORAL December 14, 2024 Active sulfasalazine 500 mg Take by mouth once a day 1 tablet ORAL December 07, 2024 Active trazodone 50 mg Take by mouth at bedtime 1 tablet ORAL December 14, 2024 Active Wellbutrin XL 150 mg Take by mouth once a day 1 tablet ORAL December 14, 2024 Active zolpidem 10 mg Take by mouth at bedtime 1 tablet ORAL December 14, 2024 Active carvedilol 12.5 mg Take by mouth twice a day 1 tablet ORAL December 30, 2024 Discontinued [id number] 0.3 mg/24 hr Apply to skin once a week 2 patch TRANSDERMAL December 25, 2024 Discontinued isosorbide dinitrate 20 mg Take by mouth twice a day 1 tablet ORAL December 25, 2024 Discontinued nifedipine 60 mg Take by mouth once a day 1 tablet ORAL December 25, 2024 Discontinued sertraline 100 mg Take by mouth once a day 1 tablet ORAL December 25, 2024 Discontinued VITAL SIGNS Post-Treatment Vital Signs Vital Sign Value Date / Time Blood Pressure-sitting 111/69 mmHg January 13, 2025 07:21 AM Blood Pressure-standing 104/74 mmHg January 13, 2025 07:21 AM Heart Rate 78 beats per minute January 13 07:21 AM Respiratory Rate 18 breaths per minute January 13, 2025 07:21 AM Temperature 98.1 deg. F January 13, 2025 07 :21 AM Weight Vital Sign Value Date / Time Estimated Dry Weight 80 kg January 15, 2025 11:59 PM Pre-Dialysis 80.30 kg January 13, 2025 07 :21 AM Post-Dialysis 79.40 kg January 13, 2025 07 :21 AM Other Other Value Date / Time Height 170.18 cm November 26, 2024 12 :00 AM Body Mass Index 28.03 kg/m2 January 11, 2025 11 :19 AM LAB RESULTS Hematology Result Type Result Value Relevant Referen ce Range Interpretation Date RDW 13.7 % 11.5 - 14.5 % - November 27 Hemoglobin x 3 24.3 % 42.0 - 54.0 % Low November MCH 30.3 pg 27.0 - 31.0 pg - November 27 MCHC 33.2 g/dL 30.0 - 36.0 g/dL - November 27, 2024 CASSI 1.4 % 0.0 - 4.0 % - November 27, 2024 WBC (No Diff) 5.98 1000/mcL 4.80 - 10.80 1000/mcL - November 27, 2024 Folate, Serum 3.5 ng/mL No Reference Ran ge Provided - November 27, 2024 Ferritin 713 ng/mL 22 - 322 ng/mL High November 27 Platelets 277 1000/mcL 130 - 400 1000/mcL - November 27, 2024 UIBC/TIBC 127 mcg/dL 155 - 355 mcg/dL Low November 27, 2024 TIBC (Calc) 164 mcg/dL 185 - 515 mcg/dL Low November Iron 37 mcg/dL 45 - 160 mcg/dL Low November 27, 2024 Lymphocytes 15.7 % 19.0 - 48.0 % Low November 27 Monocytes 9.1 % 3.0 - 10.0 % - November 27 Eosinophil 3.6 % 0.0 - 7.0 % - November 27, 2024 Basophils 0.7 % 0.0 - 1.5 % - November 27, 2024 Neutrophils 69.4 % 40.0 - 75.0 % - November 27 Transferrin Sat. (Calc) 23 % 20 - 55 % - November 27, 2024 Hemoglobin x 3 25.8 % 42.0 - 54.0 % Low November HGB 8.7 g/dL 14.0 - 18.0 g/dL Low December 16, 2024 Hemoglobin x 3 26.1 % 42.0 - 54.0 % Low December HGB 8.6 g/dL 14.0 - 18.0 g/dL Low December 23, 2024 Hemoglobin x 3 25.8 % 42.0 - 54.0 % Low December Platelets 125 1000/mcL 130 - 400 1000/mcL Low December 30, 2024 Hemoglobin x 3 27.9 % 42.0 - 54.0 % Low December HGB 9.3 g/dL 14.0 - 18.0 g/dL Low December 30, 2024 Ferritin 1818 ng/mL 22 - 322 ng/mL High December 30 025 Monocytes 6.6 % 3.0 - 10.0 % - December 30 Lymphocytes 24.7 % 19.0 - 48.0 % - December 30 Neutrophils 60.2 % 40.0 - 75.0 % - December 30 Basophils 0.9 % 0.0 - 1.5 % - December 30, 2024 Eosinophil 5.7 % 0.0 - 7.0 % - December 30, 2024 RDW 15.3 % 11.5 - 14.5 % High December 30 MCHC 31.4 g/dL 30.0 - 36.0 g/dL - December 30, 2024 MCH 28.6 pg 27.0 - 31.0 pg - December 30 HCT 29.7 % 42.0 - 52.0 % Low December 30 RBC 3.27 mill/mcL 4.70 - 6.10 mill/mcL Low J meg 2024 WBC (No Diff) 4.92 1000/mcL 4.80 - 10.80 1000/mcL - December 30, 2024 CASSI 1.9 % 0.0 - 4.0 % - December 30, 2024 Transferrin Sat. (Calc) 51 % 20 - 55 % - December 30, 2024 TIBC (Calc) 145 mcg/dL 185 - 515 mcg/dL Low December UIBC/TIBC 71 mcg/dL 155 - 355 mcg/dL Low December 30, 2024 Iron 74 mcg/dL 45 - 160 mcg/dL - December 30, 2024 HGB 9.1 g/dL 14.0 - 18.0 g/dL Low January 06, 2025 Hemoglobin x 3 27.3 % 42.0 - 54.0 % Low December HGB 9.2 g/dL 14.0 - 18.0 g/dL Low January 13, 2025 Hemoglobin x 3 27.6 % 42.0 - 54.0 % Low December Metabolic/Renal Result Type Result Value Relevant Reference Range Interpre tation Date Vitamin B12 440 pg/mL 211 - 911 pg/mL - November 27, 2024 Chloride 102 mEq/L 96 - 108 mEq/L - November 27 Bicarbonate 21 mEq/L 22 - 29 mEq/L Low November 27 Sodium 137 mEq/L 136 - 145 mEq/L - November 27, 2024 Potassium 4.5 mEq/L 3.5 - 5.1 mEq/L - November 27, 2024 Creatinine, Serum 7.89 mg/dL 0.60 - 1.30 mg/dL High November 27, 2024 BUN 44 mg/dL 6 - 19 mg/dL High December 16 Potassium 3.3 mEq/L 3.5 - 5.1 mEq/L Low December 16, 2024 URR, Calc 68 % 65 - 80 % - December 16, 2024 BUN, Post 14 mg/dL 6 - 19 mg/dL - December 16 Potassium 3.7 mEq/L 3.5 - 5.1 mEq/L - December 21, 2024 BUN 37 mg/dL 6 - 19 mg/dL High December 25 URR, Calc 73 % 65 - 80 % - December 25, 2024 BUN, Post 10 mg/dL 6 - 19 mg/dL - December 25 Potassium 3.7 mEq/L 3.5 - 5.1 mEq/L - December 28, 2024 Hemoglobin A1c 5.3 % 4.8 - 5.9 % - December 30, 2024 Bicarbonate 26 mEq/L 22 - 29 mEq/L - December 30 Chloride 103 mEq/L 96 - 108 mEq/L - December 30 Potassium 3.8 mEq/L 3.5 - 5.1 mEq/L - December 30, 2024 Sodium 139 mEq/L 136 - 145 mEq/L - December 30, 2024 Creatinine, Serum 5.43 mg/dL 0.60 - 1.30 mg/dL High December 30, 2024 Potassium 3.9 mEq/L 3.5 - 5.1 mEq/L - January 04, 2025 Potassium 4.2 mEq/L 3.5 - 5.1 mEq/L - January 11, 2025 HD Adequacy Result Type Result Value Relevant Referen ce Range Interpretation Date spKt/V Gotch 1.31 No Reference Ran ge Provided - December 16, 2024 wstdKt/V without residual 2.2 No Reference Range Provided - December 16, 2024 eKt/V ([place]) 1.11 No Reference Range Provided - December 16, 2024 spKt/V (Daugirdas II) 1.30 No Referen ce Range Provided - December 16, 2024 wstdKt/V, residual 0.0 No Reference Range Provided - December 16, 2024 Krt/V 0.00 No Reference Ran ge Provided - December 16, 2024 wstdKt/V 2.2 No Reference Ran ge Provided - December 16, 2024 spKt/V Gotch 1.50 No Reference Ran ge Provided - December 25, 2024 eKt/V ([place]) 1.28 No Reference Range Provided - December 25, 2024 spKt/V (Daugirdas II) 1.48 No Referen ce Range Provided - December 25, 2024 wstdKt/V 2.4 No Reference Ran ge Provided - December 25, 2024 wstdKt/V, residual 0.0 No Reference Range Provided - December 25, 2024 wstdKt/V without residual 2.4 No Reference Range Provided - December 25, 2024 Krt/V 0.00 No Reference Ran ge Provided - December 25, 2024 Bone/Mineral Result Type Result Value Relevant Referen ce Range Interpretation Date PTH-Intact, Plasma 375 pg/mL 16 - 80 pg/mL High Nov Vitamin D 25 Hydroxy 16.6 ng/mL 30.0 - 100.0 ng/mL Low November 27, 2024 Alkaline Phosphatase 100 U/L 40 - 129 U/L - 2024 Phosphorus 6.0 mg/dL 2.6 - 4.5 mg/dL High November 27, 2024 Ca x P Product 46 0 - 54 - November 27, 025 Calcium, Total 7.7 mg/dL 8.4 - 10.2 mg/dL Low November 27, 2024 Corrected Ca x P Product 53 0 - 54 - November 27, 2024 Magnesium 2.3 mg/dL 1.6 - 2.6 mg/dL - November 27, 2024 Phosphorus 4.7 mg/dL 2.6 - 4.5 mg/dL High December 09, 2024 PTH-Intact, Plasma 177 pg/mL 16 - 80 pg/mL High Dec Magnesium 1.8 mg/dL 1.6 - 2.6 mg/dL - December 30, 2024 Corrected Ca x P Product 41 0 - 54 - December 30, 2024 Alkaline Phosphatase 116 U/L 40 - 129 U/L - Ju 2024 Ca x P Product 36 0 - 54 - December 30, 025 Phosphorus 4.3 mg/dL 2.6 - 4.5 mg/dL - December 30, 2024 Calcium, Total 8.3 mg/dL 8.4 - 10.2 mg/dL Low December 30, 2024 Liver/Nutrition Result Type Result Value Relevant Reference Range Interpre tation Total Protein 5.0 g/dL 6.0 - 8.5 g/dL Low November A/G Ratio 1.0 1.0 - 2.0 - November 27, 2024 Globulin (Calc) 2.5 g/dL 2.0 - 4.0 g/dL - November 27, 2024 Albumin (BCG) 2.5 g/dL 3.5 - 5.2 g/dL Low November eNPCR 0.69 No Reference Range Provided - December 16, 2024 eNPCR 0.69 No Reference Range Provided - December 25, 2024 A/G Ratio 0.8 1.0 - 2.0 Low December 30, 2024 Globulin (Calc) 2.9 g/dL 2.0 - 4.0 g/dL - December 30, 2024 Albumin (BCG) 2.4 g/dL 3.5 - 5.2 g/dL Low December Total Protein 5.3 g/dL 6.0 - 8.5 g/dL Low December Trace Elements Result Type Result Value Relevant Reference Range Interpre Aluminum < 5 mcg/L 0 - 10 mcg/L - November 27 Aluminum < 5 mcg/L 0 - 10 mcg/L - December 30 Infectious Diseases Result Type Result Value Relevant Referen ce Range Interpretation Date Hep B core Ab Total (anti-HBc) negative No Reference Range Provided Normal November 26, 2024 Hep B Surface Ag (HBsAg) Negative No Reference Range Provided - December 30, 2024 Hep B Surface Ab (anti-HBs) < 10 mIU/mL No Reference Range Provided - December 30, 2024 DIALYSIS PRESCRIPTION Conventional Hemodialysis Data Element Value Order Date/Time January 15, 2025 Frequency 3X Week Treatment Days MonWedFri Dialyzer [id number] Optiflux Treatment Time (Total Minutes) 240 min Blood Flow Rate (mL/min) 400 mL/min Dialysate Flow Rate Manual 600 Estimated Dry Weight 80 kg Dialysate Concentrate 2.0 K, 2.50 Ca, 1. 0 Mg, 100 Dextrose ([id number]) Sodium (mEq/L) 138 mEq/L Bicarb Machine Setting (mEq/L) 35 mEq/L Dialysis Access Hemodialysis-CV Cath eter-Tunneled, Chest, Right Jugular TRANSPLANT WAITLIST STATUS No Information on Transplant Waitlist Status ADVANCE DIRECTIVES Directive Description Ordered By Effective Date Resuscitation status Full Code Anant Belllatisha At hreya Nov 27, 2024 DIALYSIS TREATMENTS Conventional Hemodialysis Date Pre-Treatment Vitals Post-Treatment Lolis ls Duration (hr) BFR (mL/min) Dialysate Dialyzer Dialysis Access Meds Admin January 08, 2025 Weight 81.90 kg Weight 80.40 kg 03:53:00 400 3.0 K, 2.50 Ca, 1.0 Mg, 100 Dextrose ([id number]) 180nre Optifl ux Blood Pressure-sitting 170/91 mmHg Blood Pressure-sit ting 173/90 mmHg Blood Pressure-standing 125/66 mmHg Blood Pressure-st anding 120/77 mmHg Heart Rate 105 beats per minute Heart Rate 92 beats per minute Respiratory Rate 18 breaths per minute Respiratory Rate 18 breaths per minute Temperature 97.8 deg. F Temperature 97.8 deg. F January 11, 2025 Weight 83.30 kg Weight 80.80 kg 04:14:00 400 3.0 K, 2.50 Ca, 1.0 Mg, 100 Dextrose ([id number]) 180nre Optiflux Hemodialysis-CV Catheter-Tunneled, Chest, Right Jugular Heparin Sodium (Porcine) 1,000 Units/mL Catheter Lock Arterial; 1800units,Arterial Red Port Heparin Sodium (Porcine) 1,000 Units/mL Catheter Lock Venous; 1800units,Venous Blue Port Vitamin D (Calcitriol) Oral; 0.25mcg,Oral Blood Pressure-sitting 130/79 mmHg Blood Pressure-sit ting 133/88 mmHg Blood Pressure-standing 110/63 mmHg Blood Pressure-st anding 116/70 mmHg Heart Rate 82 beats per minute Heart Rate 78 beats per minute Respiratory Rate 18 breaths per minute Respiratory Rate 18 breaths per minute Temperature 97.6 deg. F Temperature 97.8 deg. F January 13, 2025 Weight 80.30 kg Weight 79.40 kg 03:32:00 400 3.0 K, 2.50 Ca, 1.0 Mg, 100 Dextrose ([id number]) 180nre Optiflux Hemodialysis-CV Catheter-Tunneled, Chest, Right Jugular Heparin Sodium (Porcine) 1,000 Units/mL Catheter Lock Arterial; 1800units,Arterial Red Port Heparin Sodium (Porcine) 1,000 Units/mL Catheter Lock Venous; 1800units,Venous Blue Port Mircera; 150mcg,Intravenous - push Vitamin D (Calcitriol) Oral; 0.25mcg,Oral Blood Pressure-sitting 112/68 mmHg Blood Pressure-sit ting 111/69 mmHg Blood Pressure-standing 88/55 mmHg Blood Pressure-st anding 104/74 mmHg Heart Rate 106 beats per minute Heart Rate 78 beats per minute Respiratory Rate 18 breaths per minute Respiratory Rate 18 breaths per minute Temperature 97.8 deg. F Temperature 98.1 deg. F
--- NOTE | 2025-01-14 15:12 | MHC.OFFVIS ---
Vital Signs 01/14/25 15:15 Height 5 ft 8 in Weight 171 lb 15.369 oz BMI 26.1 BP 88/60 L Blood Pressure Location Lt brachial Position Sitting Pulse 69 Pulse Source Pulse Oximeter Intake Visit Reasons: 6 mth , echo Allergies No Known Allergies Allergy (Verified 11/11/24 13:06) Medication List - Last Reconciled 01/14/25 by Chris Espinosa NP atorvastatin 80 mg PO BEDTIME B complex-vitamin C-folic acid 0.8 mg (Oriana-Marbin) 1 tab PO DAILY blood pressure monitor (Blood Pressure Kit) As directed clonazepam (Klonopin) 2 mg PO DAILY clonidine HCl 0.3 mg PO BID losartan 25 mg PO DAILY midodrine mg PO sertraline 100 mg PO DAILY walker As directed HPI Comments Details: This is a 59-year-old male patient coming in for a follow-up visit accompanied by his ex-. Patient with a history of hypertension, diabetes, hypertension cardiomyopathy, hyperlipidemia, chronic kidney disease, and sleep apnea on CPAP therapy. Patient was recently in the hospital for worsening renal function in the setting of anasarca and generalized weakness. Patient was diuresed and started on dialysis. Patient was discharged on nifedipine, isosorbide, hydralazine, clonidine, and Bumex therapy. Patient now goes to dialysis 3 times a week and states that his blood pressure has been low and therefore they stopped his blood pressure medications. However, the ex tells me that the urgency since nurses to give him medications and they gave him all of his blood pressure pills. She states that patient has been feeling weak and has been having low blood pressures all the time. But this is also confusing as she is also telling me that sometimes the blood pressures is low in the morning but high in the afternoon and the Nephrology Department advised patient to take midodrine in the morning and losartan in the afternoon. Nonetheless, patient's ex- tells me that he has been given all of his medications from the discharge by the nurses at home. Patient at today's visit continues to feel fatigued and dizziness but is otherwise denying any exertional chest pain, shortness of breath, palpitations, orthopnea, PND, leg edema, presyncope, or syncope. [facility] Medical History Hypertension Anemia of chronic disease Chronic kidney disease Congestive heart failure Chronic HFrEF (heart failure with reduced ejection fraction) Anemia RACHEL (obstructive sleep apnea) Heart failure Hypercholesterolemia Diabetes Family History Mother Kidney disease Hypertension Father Hypertension Social History Household Members: None Household Members Other:: grandson Housing: House Do you presently have visiting nurse or other home services: Yes (house cleaning assistance.) Alcohol intake: never Patient Tobacco Use Status: Former Tobacco user Tobacco use type: Cigarette Second Hand Smoke Exposure: No Advance Directives Date on File: 08/08/23 service: No Review of Systems Const Reports weakness ENT Denies dizziness Card Denies chest pain, Denies chest pain with activity, Denies syncope, Denies rapid heart rate, Denies pedal edema, Denies edema, Denies leg edema, Denies lightheadedness, Denies palpitations, Denies dyspnea, Denies dyspnea on exertion and Denies orthopnea Resp Denies cough, Denies dyspnea and Denies dyspnea on exertion GI Denies hematochezia and Denies change in stool character Musc Denies abnormal gait, Denies muscle cramps, Denies muscle weakness, Denies numbness, Denies radiating pain into limb and Denies tingling Neuro Denies abnormal gait, Denies dizziness, Denies syncope, Denies numbness, Denies tingling and Reports weakness Endo Denies palpitations Physical Exam Vital Signs: Last Vital Signs Pulse 69 01/14/25 15:15 BP 88/60 L 01/14/25 15:15 BMI result Body Mass Index 26.1 Const General: cooperative, comfortable, no acute distress and tired appearing Orientation/consciousness: patient oriented x3 HEENT Head: Yes normal to inspection Neck Neck: Yes normal visual inspection, Yes trachea midline and Yes supple Chest Chest palpation & inspection: normal inspection of the chest Resp Effort & Inspection: normal respiratory effort Auscultation: clear to auscultation bilaterally, no crackles, no rales, no rhonchi and no wheezes Cardio Jugular venous distension: no JVD Palpation: normal PMI Rate: regular rate Rhythm: regular rhythm Heart sounds: S1 normal heart sound present, S2 normal heart sound present, no click, no gallops, no murmurs and no rubs Peripheral pulses: Peripheral pulses 2+ throughout GI Inspection: Yes normal to inspection Palpation (GI): Soft to palpation Auscultation: normal bowel sounds Skin General skin exam: no rashes or lesions noted Neuro General: patient oriented x3 Extrem General: Yes normal to inspection, No no pedal edema and No calf tenderness Psych Appearance: grossly normal Mental Status: mental status grossly normal Speech and movement: Normal speech and movement present Assessment & Plan Assessment & Plan (1) Hypotension: Code(s): I95.9 - Hypotension, unspecified Category: Medical Plan: Patient's blood pressure is low today. The patient's ex- says that patient's blood pressures has been low at the dialysis center as well as at home. It seems that patient was already requested to stop all his other blood pressure medications including carvedilol, hydralazine, isosorbide, nifedipine, spironolactone but the ex- tells me that he has still been given all of his blood pressure medications by the agents in nurses despite being told. Emphasized on the need to stop his blood pressure medications given his low blood pressures and ongoing fatigue and dizziness. For now, we will stop Bumex given that he has getting dialysis. We will also slowly reduce his clonidine dose- go down to 0.2 mg b.i.d. for the next 2 weeks. We will keep his losartan on for now while we make these blood pressure medication changes. Advised monitoring blood pressures at home and maintaining a log. We will bring patient in 2 weeks for a blood pressure check with the nurse. If patient's blood pressure continues to be lower then we can slowly titrate down on his clonidine dose. Advised his ex- give him some chicken broth for tonight to help him with his blood pressure and dizziness. (2) Heart failure: Code(s): I50.9 - Heart failure, unspecified Category: Medical Plan: 11/12/2024-echo study showed mildly reduced LV function between 45-50% with moderate LVH with impaired relaxation filling pattern, moderately dilated left atrium, and trivial pericardial effusion. Clinically euvolemic. Follow medication adjusted as above. (3) CKD stage 5 due to type 2 diabetes mellitus: Code(s): E11.22 - Type 2 diabetes mellitus with diabetic chronic kidney disease; N18.5 - Chronic kidney disease, stage 5 Category: Medical Plan: Followed by Nephrology. Patient is on dialysis 3 times a week. (4) Diabetes: Code(s): E11.9 - Type 2 diabetes mellitus without complications Category: Medical Plan: Patient states that the blood pressures has been stable and all his diabetes medications has been stopped now. Patient's A1c goal should be less than 7%. Advised patient to continue with heart healthy diet, med compliance, and management of vascular risk factors. Patient will follow-up in 1 month. In the interim, patient will call the office with any concerns or change in symptoms. This note was generated using voice recognition software. While every effort has been made to ensure accuracy and proper documentation improvement specialist, there may be occasional errors that could affect the content or meaning of the described symptoms. Medications: New clonidine HCl 0.2 mg PO BID Coding Level of Care Code Est Pt Level 4 (04920) Complex EM visit Add On G2211 Diagnoses Hypotension I95.9 Heart failure I50.9 CKD stage 5 due to type 2 diabetes mellitus E11.22; N18.5 Diabetes E11.9 Time Spent (min) 34 Comment Time spent in reviewing the chart, test results, assessment, counseling and documentation.
[2025-01-14 15:15] VITALS: BP 88/60; PULSE 69; BMI 26.1
== END 2025-01-14 16:13 | disposition home or self-care (01) ==
LOC: HO.HCS 14:19
PROVIDERS: PCP Internal Medicine
DX: I95.9 Hypotension, unspecified (principal); I50.9 Heart failure, unspecified; E11.22 Type 2 diabetes mellitus with diabetic chronic kidney disease; N18.5 Chronic kidney disease, stage 5
CPT/HCPCS: 99214

== ENCOUNTER → 2025-01-14 14:19 | Outpatient (BNVA) | payer OTHER, SELFPAY | PROVIDERS: PCP Internal Medicine | DX: I95.9 Hypotension, unspecified (principal); I13.0 Hypertensive heart and chronic kidney disease with heart failure and stage 1 through stage 4 chronic kidney disease, or unspecified chronic kidney disease; I50.22 Chronic systolic (congestive) heart failure; E11.22 Type 2 diabetes mellitus with diabetic chronic kidney disease; N18.9 Chronic kidney disease, unspecified; Z87.891 Personal history of nicotine dependence | CPT/HCPCS: 99212 ==

== ENCOUNTER → 2025-01-26 14:39 | Outpatient (BNVA) | payer OTHER, SELFPAY | PROVIDERS: PCP Internal Medicine | DX: Z01.30 Encounter for examination of blood pressure without abnormal findings (principal) ==

== ENCOUNTER 2025-02-09 13:48 | Outpatient (AMB) | payer OTHER, SELFPAY ==
--- OUTSIDE RECORDS SUMMARY | 2025-02-04 20:00 | XMS_ITS ---
Author Name Wily Castro Address [address] [place] [id number] Phone [phone] Organization [facility], NA DOCUMENT DISCLAIMER Multiple document versions may exist, please be sure you review the latest version. The information in the [facility] Progress Note Document represents a providers documented clinical note containing certain health and medical information. It may not contain the complete medical history for the patient and should be independently verified. The represented time in the document is Eastern Time PROVIDER ROUNDING NOTE BASIC Patient:?Dillon?Naveed,?1965,?59y,?M Dialysis?Location:?[facility] Attending?Fondant Puff Maker:?Jaylene Service?Date:?02/05/2025 Service?Provider:?Wily?Matthew,? I?met?face?to?face?with?the?patient?today. 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 disease?with?stage?1?through?stage?4?chronic?kidney?dis ease,?or?unspecified?chronic?kidney?disease LAST?HOSPITALIZATION Discharge?Diagnosis:?D64.9?Anemia,?unspecified Admission?Date?12/01/24 Discharge?Date?12/05/24 DIALYSIS?PRESCRIPTION ??IHD?3x?Week?Start?date:?02/05/25 ??Dialyzer:?180NRe?Optiflux ??BFR:?400 ??DFR:?Manual?600 ??Potassium:?3.0 ??Sodium:?138 ??EDW:?80 ??Duration:?4:00 ??Calcium:?2.50 ??Bicarb:?35 ??Rx?updated?on:?02/05/2025 TREATMENT?ASSESSMENT BP?Stand?Pre ??02/03/2025:?172/100 ??02/01/2025:?162/100 ??01/29/2025:?117/77 BP?Sit?Pre ??02/03/2025:?195/114 ??02/01/2025:?121/77 ??01/29/2025:?157/97 BP?Stand?Post ??02/03/2025:?94/69 ??02/01/2025:?193/88 ??01/29/2025:?111/62 BP?Sit?Post ??02/03/2025:?128/78 ??02/01/2025:?197/98 ??01/29/2025:?147/84 Tx?Duration ??02/03/2025:?4:02 ??02/01/2025:?4:07 ??01/29/2025:?3:40 Missed?Treatments 0?-?last?30?days 0?-?last?60?days FLUID?ASSESSMENT EDW?(kg) ??02/03/2025:?80.0 ??02/01/2025:?80.0 ??01/29/2025:?80.0 Weight?Pre?(kg) ??02/03/2025:?83.7 ??02/01/2025:?82.2 ??01/29/2025:?81.5 Weight?Post?(kg) ??02/03/2025:?79.7 ??02/01/2025:?80.0 ??01/29/2025:?79.8 PWV?(kg) ??02/03/2025:?-0.3 ??02/01/2025:?0.0 ??01/29/2025:?-0.2 UF?Rate?(mL/kg/hr) ??02/03/2025:?12.4 ??02/01/2025:?6.7 ??01/29/2025:?5.8 ADEQUACY?ASSESSMENT spKt/V,?URR ??01/20/2025:?1.58,?73.0 ??12/25/2024:?1.48,?73.0 ??12/16/2024:?1.3,?68.0 ACCESS?ASSESSMENT ??Access?Type:?CVCatheter ??Access?SubType:?Tunneled ??Access?Status:?Active?(In?Use)?-?11/23/2024 ??Access?Location:?Chest ??Placed:?--/--/---- ANEMIA?ASSESSMENT HGB,?TSAT ??02/03/2025:?9.8,?28.0 ??01/27/2025:?9.7,?- ??01/20/2025:?9.7,?- ?? Ferritin ??12/30/2024:?1818.0 ??11/27/2024:?713.0 Mircera,?IVP?(mcg) ??01/27/2025:?200 ??01/13/2025:?150 ??12/30/2024:?100 Iron?Sucrose?(Venofer)?(mg) ??12/30/2024:?50 ??12/23/2024:?100 ??12/21/2024:?100 BMM?ASSESSMENT PTH,?Intact ??12/30/2024:?177.0 ??11/27/2024:?375.0 ?? Calcium,?Phosphorus ??02/03/2025:?7.9,?4.7 ??12/30/2024:?8.3,?4.3 ??12/09/2024:?-,?4.7 Vitamin?D?(Calcitriol)?Oral?(mcg) ??02/03/2025:?0.25 ??02/01/2025:?0.25 ??01/29/2025:?0.25 NUTRITION?ASSESSMENT Potassium,?Albumin ??02/03/2025:?3.9,?2.7 ??02/01/2025:?4.2,?- ??01/25/2025:?4.6,?- ?? eNPCR ??01/20/2025:?0.91 ??12/25/2024:?0.69 ??12/16/2024:?0.69 DIAGNOSIS Chief?Complaint:?N18.6?End?stage?renal?disease Patient?data?updated?02/05/2025?at?3:14?PM Signed?By:?Matthew,?Wily,???on?02/05/2025?3:15:00?PM END OF DOCUMENT
[2025-02-09 14:29] VITALS: BP 148/82; PULSE 90; BMI 27.6
--- NOTE | 2025-02-09 14:29 | A.OFFVIS_ITS ---
Vital Signs 02/09/25 14:29 Height 5 ft 8 in Weight 181 lb 3.52 oz BMI 27.6 BP 148/82 H Blood Pressure Location Lt brachial Position Sitting Pulse 90 Pulse Source Pulse Oximeter Intake Visit Reasons: 1 mth fu Revising Clerk Required: No Allergies No Known Allergies Allergy (Verified 02/09/25 14:32) Medication List - Last Reconciled 02/09/25 by Chris Espinosa NP atorvastatin 80 mg PO BEDTIME B complex-vitamin C-folic acid 0.8 mg (Oriana-Marbin) 1 tab PO DAILY blood pressure monitor (Blood Pressure Kit) As directed clonazepam (Klonopin) 2 mg PO DAILY clonidine HCl 0.2 mg PO BID midodrine mg PO sertraline 100 mg PO DAILY trazodone 25 mg PO DAILY walker As directed HPI Comments Details: This is a 59-year-old male patient coming in for a follow-up visit accompanied by his ex-, who is the primary roadside mechanic. Patient with a history of hypertension, diabetes, hypertensive cardiomyopathy, hyperlipidemia, chronic kidney disease, and sleep apnea on CPAP therapy. Patient was hospitalized in October for worsening renal function where patient was started on dialysis. Patient was also discharged on hypertensive medications however since discharge patient has been having some low blood pressures. At his last visit in office, patient had dizziness and low blood pressures for which all of his hypertensive medications. And left on midodrine in the morning and losartan in the afternoon. Plan was to slowly titrate his clonidine down. However, for unclear reasons patient stopped taking losartan as well. Patient's roadside mechanic notes that his blood pressures has been elevated at home and is taking his midodrine daily. Patient is reporting feeling well overall and denies any exertional chest pain, shortness of breath, palpitations, dizziness, orthopnea, PND, leg edema, presyncope or syncope. [facility] Medical History Hypertension Anemia of chronic disease Chronic kidney disease Congestive heart failure Chronic HFrEF (heart failure with reduced ejection fraction) Anemia RACHEL (obstructive sleep apnea) Heart failure Hypercholesterolemia Diabetes Family History Mother Kidney disease Hypertension Father Hypertension Social History Household Members: None Household Members Other:: grandson Housing: House Do you presently have visiting nurse or other home services: Yes (house cleaning assistance.) Alcohol intake: never Patient Tobacco Use Status: Former Tobacco user Tobacco use type: Cigarette Second Hand Smoke Exposure: No Advance Directives Date on File: 08/08/23 service: No Review of Systems ENT Reports dizziness Card Denies chest pain, Denies chest pain at rest, Denies chest pain with activity, Denies rapid heart rate, Denies pedal edema, Denies edema, Denies leg edema, Denies lightheadedness, Denies palpitations, Denies dyspnea, Denies dyspnea on exertion and Denies orthopnea Resp Denies cough, Denies dyspnea and Denies dyspnea on exertion GI Denies hematochezia and Denies change in stool character Musc Denies abnormal gait, Reports limited range of motion, Reports muscle cramps, Denies muscle weakness, Denies numbness, Denies radiating pain into limb, Denies stiffness and Denies tingling Neuro Denies abnormal gait, Reports dizziness, Denies numbness and Denies tingling Endo Denies palpitations Physical Exam Vital Signs: Last Vital Signs Pulse 90 02/09/25 14:29 BP 148/82 H 02/09/25 14:29 BMI result Body Mass Index 27.6 Const General: cooperative, comfortable, no acute distress and tired appearing Orientation/consciousness: patient oriented x3 HEENT Head: Yes normal to inspection Neck Neck: Yes normal visual inspection, Yes trachea midline and Yes supple Chest Chest palpation & inspection: normal inspection of the chest Resp Effort & Inspection: normal respiratory effort Auscultation: clear to auscultation bilaterally, no crackles, no rales, no rhonchi and no wheezes Cardio Jugular venous distension: no JVD Palpation: normal PMI Rate: regular rate Rhythm: regular rhythm Heart sounds: S1 normal heart sound present, S2 normal heart sound present, no click, no gallops, no murmurs and no rubs Peripheral pulses: Peripheral pulses 2+ throughout GI Inspection: Yes normal to inspection Palpation (GI): Soft to palpation Auscultation: normal bowel sounds Skin General skin exam: no rashes or lesions noted Neuro General: patient oriented x3 Extrem General: Yes normal to inspection, No no pedal edema and No calf tenderness Psych Appearance: grossly normal Mental Status: mental status grossly normal Speech and movement: Normal speech and movement present Assessment & Plan Assessment & Plan (1) Labile blood pressure: Code(s): R09.89 - Other specified symptoms and signs involving the circulatory and respiratory systems Category: Medical Plan: Patient's blood pressure is had been very low at his last visit for which, patient's hypertensive medications for all stopped except for losartan. Perfusionist had advised patient to take his midodrine in the morning and losartan in the afternoon. We plan to titrate his clonidine down slowly. However, patient has stopped the losartan as well and was taking clonidine and midodrine. They noted that blood pressures has been elevated now highest in the 170s. Today's blood pressure is elevated. Recommended staying on the clonidine at 0.2 mg b.i.d. and restarting his losartan. Have advised using the midodrine only as needed follow up blood pressures and advised to hold losartan for blood pressures lower than 90/50. Both patient and the roadside mechanic verbalizes understanding. Advised monitoring blood pressures at home with a goal less than 130/80. Patient will return in 2 weeks for a blood pressure check with the nurse. Advised maintain a log and to bring to the visit. (2) Heart failure: Code(s): I50.9 - Heart failure, unspecified Category: Medical Plan: 11/12/2024-echo study showed mildly reduced LV function between 45-50% with moderate LVH with impaired relaxation filling pattern, moderately dilated left atrium, and trivial pericardial effusion. Clinically euvolemic. Follow medication adjusted as above. (3) CKD stage 5 due to type 2 diabetes mellitus: Code(s): E11.22 - Type 2 diabetes mellitus with diabetic chronic kidney disease; N18.5 - Chronic kidney disease, stage 5 Category: Medical Plan: On dialysis 3 times a week, followed by Nephrology. (4) Diabetes: Code(s): E11.9 - Type 2 diabetes mellitus without complications Category: Medical Plan: Patient states that the blood pressures has been stable and all his diabetes medications has been stopped now. Patient's A1c goal should be less than 7%. Advised patient to continue with heart healthy diet, med compliance, and management of vascular risk factors. Patient will follow up in 3 months. In the interim, patient will call the office with any concerns or change in symptoms. This note was generated using voice recognition software. While every effort has been made to ensure accuracy and proper curtain stretcher assembler, there may be occasional errors that could affect the content or meaning of the described symptoms. Medications: New losartan hold for BP lower than 90/50 25 mg PO DAILY 60 tabs 3RF Changed From midodrine PO To midodrine mg PO PRN Coding Level of Care Code Est Pt Level 4 (40113) Complex EM visit Add On G2211 Diagnoses Labile blood pressure R09.89 Heart failure I50.9 CKD stage 5 due to type 2 diabetes mellitus E11.22; N18.5 Diabetes E11.9 Time Spent (min) 33 Comment Time spent in reviewing the chart, test results, assessment, counseling and documentation.
--- OUTSIDE RECORDS SUMMARY | 2025-02-09 14:44 | XMS_ITS | Clinical Summary ---
Author Organization [address] [facility] [address] Address [address] [place] [phone] Phone Care Team Providers Care Center Machine Set Up Operator Name Role Phone Chris Boucher MD Primary Care Provider [phone] Allergies No known active allergies Medications loratadine (CLARITIN) 10 mg tablet TAKE 1 TABLET BY MOUTH EVERY DAY 90 tablet 4 Active insulin glargine (Lantus Solostar U-100 Insulin) 100 unit/mL (3 mL) injection pen 4 Active ergocalciferol (VITAMIN D-2) 1,250 mcg (50,000 unit) capsule Take 1 Capsule by mouth once a week. 4 Active sertraline (ZOLOFT) 100 mg tablet Take 1 tablet (100 mg total) by mouth 1 (one) time each day. 4 Active sulfaSALAzine (AZULFIDINE) 500 mg tablet 4 Active leflunomide (ARAVA) 20 mg tablet 4 Active pen needle, diabetic (PEN NEEDLE MISC) Use once daily with insulin pen 4 Active carvediloL (COREG) 25 mg tablet Take 1 tablet (25 mg total) by mouth 2 (two) times a day. 4 Active ipratropium-albu teroL (DUONEB) 0.5-2.5 mg/3 mL nebulizer solution Inhale 3 mL into the lungs 4 times daily. 3 Active FREESTYLE LANCETS [facility] Use to test bloodsugar twice daily 1 Active blood-glucose meter kit 1 Each by Does not apply route as needed for Other for up to 360 days. 1 Active pen needle, diabetic 32 gauge x 32 needle 1 Device by Does not apply route daily. 9 Active rosuvastatin (CRESTOR) 40 mg tablet Take 1 tablet (40 mg total) by mouth 1 (one) time each day. 30 each 5 4 Active Additional Information Patient not taking.Reported on 12/01/2024 Farxiga 5 mg tablet TAKE 1 TABLET BY MOUTH EVERY DAY 90 tablet 2 5 Active Additional Information Patient not taking.Reported on 12/21/2024 doxazosin (CARDURA) 2 mg tablet TAKE 1 TABLET BY MOUTH AT BEDTIME. 90 tablet 1 5 Active calcitrioL (ROCALTROL) 0.25 mcg capsule Take 1 capsule (0.25 mcg total) by mouth 1 (one) time each day. 5 Active buPROPion XL (WELLBUTRIN XL) 150 mg 24 hr tablet Take 1 tablet (150 mg total) by mouth 1 (one) time each day. 5 Active atorvastatin (LIPITOR) 80 mg tablet Take 1 tablet (80 mg total) by mouth at bedtime. Active ARIPiprazole (ABILIFY) 2 mg tablet Take 1 tablet (2 mg total) by mouth 1 (one) time each day. Active mirtazapine (REMERON) 15 mg tablet Take 1 tablet (15 mg total) by mouth at bedtime. Active sevelamer carbonate (RENVELA) 800 mg tablet Take 1 tablet (800 mg total) by mouth 3 (three) times a day with meals. 5 Active sodium bicarbonate 650 mg tablet Take 1 tablet (650 mg total) by mouth 2 (two) times a day. 5 Active sodium polystyrene (KAYEXALATE) powder Take 30 g by mouth 1 (one) time each day. 5 Active zolpidem (AMBIEN) 10 mg tablet Take 1 tablet (10 mg total) by mouth at bedtime. 4 Active bumetanide (BUMEX) 2 mg tablet Take 1 tablet (2 mg total) by mouth 2 (two) times a day. 5 Active traZODone (DESYREL) 50 mg tablet Take 1 tablet (50 mg total) by mouth at bedtime. 5 Active isosorbide dinitrate (ISORDIL) 20 mg tablet Take 1 tablet (20 mg total) by mouth 2 (two) times a day. 5 Active cloNIDine ([id number]-OKM-6) 0.3 mg/24 hrIndications:Es sential hypertension Place 2 patches on the skin 1 (one) time per week. 8 each 5 Active Additional Information Patient not taking.Reported on 12/21/2024 losartan (COZAAR) 100 mg tablet Take 1 tablet (100 mg total) by mouth 1 (one) time each day. 30 each 5 Active NIFEdipine XL (PROCARDIA XL) 60 mg 24 hr tablet Take 1 tablet (60 mg total) by mouth 1 (one) time each day before breakfast. Do not crush, chew, or split. 30 each 5 Active Additional Information Patient not taking.Reported on 12/21/2024 NIFEdipine (ADALAT CC) 30 mg 24 hr tablet Take 1 tablet (30 mg total) by mouth 1 (one) time each day before breakfast. Do not crush, chew, or split. Takes 2 tablets daily Active hydrALAZINE (APRESOLINE) 25 mg tablet Take 2 tablets (50 mg total) by mouth 3 (three) times a day. Active acetaminophen (TYLENOL 8 HOUR) 650 mg 8 hr tablet Take 1 tablet (650 mg total) by mouth every 8 (eight) hours if needed for mild pain. Do not crush, chew, or split. Active cloNIDine (CATAPRES) 0.1 mg tablet Take 1 tablet (0.1 mg total) by mouth 2 (two) times a day. 3 tablets twice daily Active furosemide (LASIX) 20 mg tablet Take 1 tablet (20 mg total) by mouth 1 (one) time each day. Active lisinopril (PRINIVIL,ZESTRI L) 40 mg tablet Take 1 tablet (40 mg total) by mouth 1 (one) time each day. Active glucose blood test strip Use as instructed 100 each 1 5 Active cephalexin (KEFLEX) 500 mg capsule Take 1 capsule (500 mg total) by mouth 2 (two) times a day for 7 days. 14 each 02/10/20 Active Active Problems Problem Noted Date Diagnosed Date Acute anemia 12/01/2024 Anemia due to stage 4 chroni c kidney disease ([facility], [facility]) 10/13/2024 CHF (congestive heart failure) ([facility], [facility] V28) 08/23/2023 COVID-19 09/28/2022 Low testosterone 03/16/2019 Vitamin deficiency 03/16/2019 Obstructive sleep apnea 06/21/2016 Essential hypertension 06/06/2015 DDD (degenerative disc disease), cervical 2014 Insomnia 02/05/2014 Alcohol dependence ([facility], [facility]) Hyperlipidemia 08/09/2011 Microalbuminuria 08/09/2011 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 ([facility], [facility]) 08/09/2011 Asthma 07/18/2011 Major depression 07/18/2011 Obesity (BMI 30.0-34.9) 07/18/2011 Encounters Date Type Department Care Team Description 02/02/2025 11:30 AM EDT Office Visit Walk-In Clinic - [address] [phone] Pipe Connelly MD Breast infection (Primary Dx) 02/02/2025 Nurse Triage Adult Medicine [address] [phone] Chris Boucher MD 01/20/2025 [facility] [address] [place] [phone] Geneva Leonard 01/14/2025 Telephone Adult Medicine [address] [phone] Chris Boucher MD 01/13/2025 Telephone Adult Medicine [address] [phone] Chris Boucher MD 01/08/2025 Telephone Adult Medicine [address] [phone] Chris Boucher MD 01/05/2025 2:52 PM EDT - 01/05/2025 11:59 PM EDT Hospital Encounter Radiology Department [address] [phone] Lump in the groin Discharge Disposition: Home or Self Care 01/04/2025 Telephone Adult [address] [phone] Chris Boucher MD 01/01/2025 Telephone Adult [address] [phone] Devi Watts MA 12/23/2024 Telephone [facility] [address] [place] [phone] Geneva Leonard 12/22/2024 Billing Patient Not Present Adult [address] [phone] Chris Boucher MD 12/21/2024 3:00 PM EDT Office Visit Adult [address] [phone] Chris Boucher MD Anemia, unspecified type (Primary Dx); Lump in the groin; Nail problem; Type II diabetes mellitus with nephropathy (CMS/HCC V24, CMS/HCC V28); Congestive heart failure, unspecified HF chronicity, unspecified heart failure type (CMS/HCC V24, CMS/HCC V28); ESRD on hemodialysis (CMS/HCC V24, CMS/HCC V28); Frequent falls; Hematoma; Essential hypertension 12/21/2024 Telephone Adult Medicine [address] [phone] Chris Boucher MD 12/10/2024 Telephone Adult Medicine [address] [phone] Chris Boucher MD 12/04/2024 Billing Patient Not Present Adult Medicine [address] [phone] Chris Boucher MD 12/04/2024 Telephone Adult Medicine [address] [phone] Chris Boucher MD 12/03/2024 Telephone Adult Medicine [address] [phone] Chris Boucher MD 12/01/2024 10:20 AM EDT - 12/05/2024 11:14 AM EDT [facility] [address] [place] [phone] Davis Briceno DO Bukalo, Nermina, MD Rasul, Yar M, MD Acute anemia (Primary Dx); Fever, unspecified fever cause; Retroperitoneal bleed; Essential hypertension; Weakness Discharge Disposition: Home or Self Care 11/30/2024 Telephone Adult Medicine [address] [phone] Jamilah Mccord MA 11/26/2024 Telephone Adult [address] [phone] Chris Boucher MD 11/24/2024 Referral Triage [facility] [address] [place] [phone] Jagdeep Hilario from Last 3 Months Immunizations Name Administration [...] ial hypertension CHF (congestive heart failur e) ([facility] V24, [facility] V28) 08/23/2023 DX:CHF (congestive heart fa ilure) ([facility]) Family History Medical History Relation [...] months you may not have stable housing? No 01/20/2025 Food Access & Nutrition Answer Date Rec orded Do you have access to a vari ety of food including fruits and vegetables? Yes 11/24/2024 Access to Healthcare Answer Date Record ed Within the last 3 months, ho w many times did you visit the emergency department for your medical care? 3 11/24/2024 Health Literacy Answer Date Recorded How often do you need to hav e someone help you when you read instructions, pamphlets, or other written material from your doctor or pharmacy? Never 01/20/2025 Caregiver: How often do you need to have someone help you when you read instructions, pamphlets, or other written material from your doctor or pharmacy? Not on file 01/20/2025 Financial Risk Answer Date Recorded How hard [...] appointments or from getting medications? No 11/24/2024 Social Isolation Answer Date Recorded How often do you feel lonely or isolated from th ose around you? Never 01/20/2025 Food Risk Answer Date Recorded Within the past 12 months we worried whether our food would run out before we got money to buy more. Often true 025 Within the past 12 months th e food we bought just didn't last and we didn't have money to get more. Sometimes true 12/03/2024 Dependent Care Answer Date Recorded Do you need help finding or paying for care for your loved ones. For example, child psychiatrist or elderly care for an older adult? No 01/20/2025 Education Answer Date Recorded Do you think completing more education or training, like finishing a GED, going to college, or learning a trade, would be helpful for you? No 01/20/2025 Employment and Income Answer Date Recor ded During the last four weeks, have you been actively looking for work? No 11/24/2024 Living Situation Answer Date Recorded What is your living situation? 0 11/24/2024 Interpersonal Safety Answer Date Record ed Physical Abuse 12/01/2024 Verbal Abuse 12/01/2024 Sex and Gender Information Value Date Recorded Sex Assigned at Not on file Legal Sex Male 4:53 AM EST Gender Identity Not on file Sexual Orientation Not on file Obstetrics History Last Filed Vital Signs Vital Sign Reading Time Taken Comments Blood Pressure 140/82 02/02/2025 11:15 AM EDT Pulse 69 02/02/2025 11:15 AM EDT Temperature 36.5 C (97.7 F) 12/21/2024 2:45 PM EDT Respiratory Rate 14 12/21/2024 2:45 PM EDT Oxygen Saturation 98% 02/02/2025 11:15 AM EDT Inhaled Oxygen Concentration - - Weight 80.3 kg (177 lb) 12/21/2024 2:45 PM EDT Height 177.8 cm (5' 10 ) 12/21/2024 2:45 PM EDT Body Mass Index 25.4 12/21/2024 2:45 PM EDT Plan of Treatment Upcoming Encounters Date Type Department Care Team (Late st Contact Info) Description 02/18/2025 3:30 PM EDT Appointment Radiology Department - [address] [phone] 02/18/2025 3:50 PM EDT Appointment Radiology Department - [address] [phone] 03/01/2025 11:00 AM EDT Office Visit Adult Medicine [address] [phone] Chris Boucher MD [address] [place] [phone] 03/10/2025 9:15 AM EDT Consult Orthopedic Surgery - [place] [address] [place] [phone] Agustin Alvares, DPM [address] [place] [phone] 03/30/2025 10:00 AM EDT Ancillary Procedure [facility] [address] [facility] [address] [place] [phone] Health Maintenance Due Date Last Done Comments Diabetes: Annual Foot Exam 1973 Hepatitis A Vaccines (1 of 2 - Risk 2-dose series) 1982 Zoster Vaccines (1 of 2) 1982 Pneumococcal Vaccine: 50+ Years (2 of 2 - PCV) 02/11/2015 02/11/2014 HIV Screening 05/26/2022 RSV Immunization Adult Patients (1 - Risk 60-74 years 1-dose series) 2023 Colorectal Cancer Screening: Colonoscopy 10/07/2023 10/06/2013 COVID-19 Vaccine ( season) 2024 05/28/2022, 08/18/2021, 12/31/2020, Additional history exists Diabetes: Blood Sugar Control Test (HGBA1C) 07/30/2024 01/28/2024, 01/28/2024 Diabetes: Annual Urine Albumin-Creatinine Ratio (uACR) 01/27/2025 01/28/2024 Influenza Vaccine (#1) 2025 , 03/28/2022, 04/17/2021, Additional history exists Diabetes: Annual GFR (Glomerular Filtration Rate) 12/05/2025 12/05/2024, 12/04/2024, 12/03/2024, Additional history exists Hypertension/CHF/CAD Annual BMP Blood Test 12/05/2025 12/05/2024, 12/04/2024, 12/03/2024, Additional history exists Social Influencers of Health Screening 01/20/2026 01/20/2025 Diabetes: Annual Retina Eye Exam 02/05/2026 02/05/2025, 12/10/2023 Cholesterol Screening (Lipid Panel) 10/13/2029 10/13/2024, 01/28/2024, 01/28/2024 DTaP,Tdap,and Td Vaccines (3 - Td or Tdap) 03/28/2032 03/28/2022, 07/26/2011 Hepatitis C Screening Completed 02/19/2023 Depression Screening Completed 12/14/2024, 01/28/20 24 HIB Vaccines Aged Out No longer eligi [...] Procedure Name Priority Date/Time Associated Diagnosis Comments EXTERNAL DIABETIC RETINA EYE EXAM 02/05/2025 US PELVIS NON OB LIMITED OR FOLLOWUP Routine 01/05/2025 3:36 PM EDT Lump in the groin CBC WITH AUTO DIFFERENTIAL Routine 12/21/2024 3:38 PM EDT Anemia, unspecified type CBC AND DIFFERENTIAL Routine 12/21/2024 3:38 PM EDT Anemia, unspecified type ECG ANNOTATED 12/07/2024 ECG OUTSIDE 12/07/2024 POCT GLUCOSE BLOOD Routine 12/05/2024 8: 25 AM EDT CBC WITH AUTO DIFFERENTIAL Routine 12/05/2024 6:12 AM EDT BASIC METABOLIC PANEL Routine 12/05/2024 6:12 AM EDT CBC AND DIFFERENTIAL Routine 12/05/2024 6:12 AM EDT POCT GLUCOSE BLOOD Routine 12/04/2024 7: 39 PM EDT POCT GLUCOSE BLOOD Routine 12/04/2024 3: 49 PM EDT POCT GLUCOSE BLOOD Routine 12/04/2024 11 :21 AM EDT POCT GLUCOSE BLOOD Routine 12/04/2024 8: 11 AM EDT POCT GLUCOSE BLOOD Routine 12/04/2024 7: 55 AM EDT PSA TOTAL, FREE AND COMPLEXED, DIAGNOSTIC Add-On 12/04/2024 6:19 AM EDT VANCOMYCIN, RANDOM Routine 12/04/2024 6 :19 AM EDT CBC WITH AUTO DIFFERENTIAL Routine 12/04/2024 6:19 AM EDT BASIC METABOLIC PANEL Routine 12/04/2024 6:19 AM EDT CBC AND DIFFERENTIAL Routine 12/04/2024 6:19 AM EDT HEMOGLOBIN AND HEMATOCRIT Routine 12/03/2024 10:57 PM EDT POCT GLUCOSE BLOOD Routine 12/03/2024 7: 54 PM EDT TRANSFUSE RED BLOOD CELLS Routine 12/03/2024 6:[address] ANGIO ABDOMEN PELVIS WO AND/OR W CONTRAST STAT 12/03/2024 6:34 PM EDT Retroperitoneal bleed PREPARE RBC Routine 12/03/2024 5:58 PM EDT ACTIVATED PARTIAL THROMBOPLASTIN TIME STAT 12/03/2024 4:20 PM EDT PROTHROMBIN TIME WITH INR STAT 12/03/2024 4:20 PM EDT HEMOGLOBIN AND HEMATOCRIT Routine 12/03/2024 4:20 PM EDT POCT GLUCOSE BLOOD Routine 12/03/2024 3: 23 PM EDT MRSA PCR Routine 12/03/2024 2:[address] CHEST/ABDOMEN/PELVIS WO CONTRAST STAT 12/03/2024 2:11 PM EDT TREPONEMA PALLIDUM ANTIBODY WITH REFLEX TO RPR AND PARTICLE AGGLUTINATION Add-On 12/03/2024 1:47 PM EDT BORRELIA BURGDORFERI ANTIBODY Add-On 12/03/2024 1:47 PM EDT BLOOD PARASITE SMEAR Routine 12/03/2024 1:47 PM EDT URINALYSIS WITH REFLEX MICROSCOPIC AND CULTURE Routine 12/03/2024 1:26 PM EDT HEMODIALYSIS INPATIENT Routine 12:42 PM EDT POCT GLUCOSE BLOOD Routine 12/03/2024 10 :57 AM EDT CULTURE BLOOD STAT 12/03/2024 9:46 AM EDT LACTATE Routine 12/03/2024 9:40 AM EDT CULTURE BLOOD STAT 12/03/2024 9:40 AM EDT PROCALCITONIN Add-On 12/03/2024 9:39 AM EDT TRANSFUSE RED BLOOD CELLS Routine 12/03/2024 8:53 AM EDT XR CHEST 1 VIEW Routine 12/03/2024 8:50 AM EDT POCT GLUCOSE BLOOD Routine 12/03/2024 7: 29 AM EDT PREPARE RBC Routine 12/03/2024 6:49 AM EDT CBC WITH AUTO DIFFERENTIAL Routine 12/03/2024 5:30 AM EDT MAGNESIUM Routine 12/03/2024 5:30 AM EDT PHOSPHORUS Routine 12/03/2024 5:30 AM EDT BASIC METABOLIC PANEL Routine 12/03/2024 5:30 AM EDT CBC AND DIFFERENTIAL Routine 12/03/2024 5:30 AM EDT COMPLETE BLOOD COUNT Timed 12/03/2024 5:30 AM EDT RESPIRATORY VIRUS PANEL MOLECULAR STUDY Routine 12/02/2024 9:56 PM EDT CULTURE BLOOD STAT 12/02/2024 8:48 PM EDT LACTATE STAT 12/02/2024 8:42 PM EDT CBC WITH AUTO DIFFERENTIAL STAT 12/02/2024 8:42 PM EDT BASIC METABOLIC PANEL STAT 12/02/2024 8:42 PM EDT CBC AND DIFFERENTIAL STAT 12/02/2024 8:42 PM EDT CULTURE BLOOD STAT 12/02/2024 8:42 PM EDT POCT GLUCOSE BLOOD Routine 12/02/2024 7: 29 PM EDT POCT GLUCOSE BLOOD Routine 12/02/2024 5: 51 PM EDT HEMODIALYSIS INPATIENT Routine 2:30 PM EDT POCT GLUCOSE BLOOD Routine 12/02/2024 11 :17 AM EDT POCT GLUCOSE BLOOD Routine 12/02/2024 8: 12 AM EDT HEPATITIS B SURFACE ANTIBODY QUANTITATIVE STAT Add-on 12/02/2024 5:12 AM EDT HEPATITIS B SCREENING PANEL Add-On 12/02/2024 5:12 AM EDT COMPLETE BLOOD COUNT Routine 12/02/2024 5:12 AM EDT BASIC METABOLIC PANEL Routine 12/02/2024 5:12 AM EDT TRANSFUSE RED BLOOD CELLS STAT 12/01/2024 8:39 PM EDT HEMOGLOBIN AND HEMATOCRIT Routine 12/01/2024 8:39 PM EDT POCT GLUCOSE BLOOD Routine 12/01/2024 7: 23 PM EDT TRANSFUSE RED BLOOD CELLS STAT 12/01/2024 4:44 PM EDT PREPARE RBC STAT 12/01/2024 2:45 PM EDT TYPE AND SCREEN STAT 12/01/2024 2:13 PM EDT TROPONIN I HIGH SENSITIVITY STAT 12/01/2024 12:[address] HEAD WO CONTRAST STAT 12/01/2024 1 1:45 AM EDT ETHANOL Add-On 12/01/2024 10:50 AM EDT CBC WITH AUTO DIFFERENTIAL STAT 12/01/2024 10:50 AM EDT TROPONIN I HIGH SENSITIVITY STAT 12/01/2024 10:50 AM EDT MAGNESIUM STAT 12/01/2024 10:50 AM EDT BASIC METABOLIC PANEL STAT 12/01/2024 10:50 AM EDT CBC AND DIFFERENTIAL STAT 12/01/2024 10:50 AM EDT XR CHEST 1 VIEW STAT 12/01/2024 10:43 AM EDT ECG 12-LEAD STAT 12/01/2024 10:35 AM EDT LIPID PANEL WITH REFLEX TO DIRECT LDL Routine 10/13/2024 9:58 AM EDT Type II diabetes mellitus with nephropathy (CMS/HCC V24, CMS/HCC V28) HM DEPRESSION SCREENING Routine 01/28/2024 URINE ALBUMIN CREATININE RATIO Routine 01/28/2024 HEMOGLOBIN A1C Routine 01/28/2024 HEPATITIS C SCREENING Routine 02/19/2023 from Last 3 Months or Most Recently Relevant to Health Maintenance Results * External Diabetic Retina Eye Exam Report (02/05/2025) Anatomical Region Laterality Modality [facility]trasound [facility] Final Result * US Pelvis Non OB Limited or Followup (01/05/2025 3:36 PM EDT) Anatomical Region Laterality Modality Body, Pelvis Ultrasound 01/05/2025 3:59 PM EDT Narrative 01/05/2025 4:00 PM EDT Ultrasound of the right groin. History lump in the right inguinal hernia. Examination was directed by the patient to the area of concern which corresponds to small mixed echogenicity structure without peristalsis with the neck measuring approximately 1.3 cm. CONCLUSIONS: Findings suggestive of small right inguinal hernia. -------- FINAL REPORT -------- Dictated By: Imani Trinh Dictated Date: 01/05/2025 15:59 ET Assigned Physician: Imani Trinh Reviewed and Electronically Signed By: Imani Trinh Signed Date: 01/05/2025 16:00 ET Workstation ID: [id number] Transcribed By: Self Edit Transcribed Date: 01/05/2025 15:59 ET Procedure Note mIani Trinh MD - 01/05/2025 Ultrasound of the right groin. History lump in the right inguinal hernia. Examination was directed by the patient to the area of concern whichcorresponds to small mixed echogenicity structure without peristalsis withthe neck measuring approximately 1.3 cm. CONCLUSIONS: Findings suggestive of small right inguinal hernia. -------- FINAL REPORT -------- Dictated By: Imani Trinh Dictated Date: 01/05/2025 15:59 ET Assigned Physician: Imani Trinh Reviewed and Electronically Signed By: Imani Trinh Signed Date: 01/05/2025 16:00 ET Workstation ID: [id number] Transcribed By: Self Edit Transcribed Date: 01/05/2025 15:59 ET us Chris Boucher MD [facility] US PROCEDURES Final Result * (ABNORMAL) CBC auto differential (12/21/2024 3:38 PM EDT) Only the most recent of6 resultswithin the time period is included. WBC 5.2 4.8 - 10.8 K/mcL LAB HEMETOLOGY METHOD 12/21/2024 6:[address] [facility] RBC 3.10(L) 4.50 - 5.50 M/mcL LAB HEMETOLOGY [facility] Hemoglobin 9.1(L) 13.5 - 17.5 g/dL LAB HEMETOLOGY METHOD 12/21[facility]2024 6[facility] Hematocrit 28.1(L) 42.0 - 54.0 % LAB HEMETOLOGY METHOD 12/21/2024 6:11 [facility] MCV 91.8 79.0 - 98.0 FL LAB HEMETOLOGY METHOD 12/21/2024 6:11 [facility] MCH 29.7 27.0 - 32.0 pcg LAB HEMETOLOGY METHOD 12/21/2024 6:11 [facility] MCHC 32.4 32.0 - 37.0 g/dL LAB HEMETOLOGY METHOD 12/21/2024 6:11 [facility] RDW 13.8 11.0 - 15.0 % LAB HEMETOLOGY METHOD 12/21/2024 6:11 [facility] Platelets 245 130 - 400 K/mcL LAB HEMETOLOGY METHOD 12/21/2024 6:11 [facility] MPV 10.0 7.0 - 11.0 FL LAB HEMETOLOGY METHOD 12/21[facility]2024 6[facility]11 [facility] NRBC 0.0 <1.0 % LAB HEMETOLOGY METHOD 12/21/2024 6:[address] [facility] NRBC Absolute 0.00 <0.10 K/mcL LAB HEMETOLOGY METHOD 12/21/2024 6:11 PM [facility] Neutrophils Relative 61.5 % LAB HEMETOLOGY METHOD 12/21/2024 6:11 [facility] Lymphocytes Relative 26.0 % LAB HEMETOLOGY METHOD 12/21[facility]2024 6:11 [facility] Monocytes Relative 6.3 % LAB HEMETOLOGY METHOD 12/21/2024 6:11 PM [facility] Eosinophils Relative 4.8 % LAB HEMETOLOGY METHOD 12/21/2024 6:11 PM [facility] Basophils Relative 0.6 % LAB HEMETOLOGY METHOD 12/21/2024 6:11 PM [facility] Immature Granulocytes Relative 0.8 % LAB HEMETOLOGY METHOD 12/21/2024 6:11 PM [facility] Neutrophils Absolute 3.20 1.50 - 7.00 K/mcL LAB HEMETOLOGY METHOD 12/21/2024 6:11 PM [facility] Lymphocytes Absolute 1.35 1.00 - 5.00 K/mcL LAB HEMETOLOGY METHOD 12/21/2024 6:11 PM [facility] Monocytes Absolute 0.33 0.20 - 1.00 K/mcL LAB HEMETOLOGY METHOD 12/21/2024 6:11 PM [facility] Eosinophils Absolute 0.25 0.00 - 0.50 K/mcL LAB HEMETOLOGY METHOD 12/21/2024 6:11 PM [facility] Basophils Absolute 0.03 0.00 - 0.20 K/mcL LAB HEMETOLOGY METHOD 12/21/2024 6:11 PM [facility] Immature Granulocytes Absolute 0.04(H) 0.00 - 0.03 K/mcL LAB HEMETOLOGY METHOD 12/21/2024 6:[address] [facility] Blood Venous blood specimen / Unknown Venipuncture / Unknown 12/21/2024 3:38 PM EDT 12/21/2024 3:38 PM EDT Chris Boucher MD LAB BLOOD ORDERABLES Final Resu lt [facility] [address] [place] [address], [place] [phone] * ECG-Outside (12/07/2024) Provider Onbase ECG ORDERABLES Final Result * ECG-Annotated (12/07/2024) Provider Onbase MD ECG ORDERABLES Final Result * (ABNORMAL) POCT Glucose, blood (12/05/2024 8:25 AM EDT) Only the most recent of15 resultswithin the time period is included. Pathologist [facility] Glucose POCT 111(H) 70 - 100 mg/dL 12/05/2024 8:[address] [facility] Blood Capillary blood specimen / Unknown 12/05/2024 8:25 AM EDT 12/05/2024 8:26 AM EDT Oniel Reid MD LAB POINT OF CARE TE ST DOCKED DEVICE UNSOLICITED RESULTS Final Result Performing Organization Address [facility]/ZIP Co de Phone Number [facility] [address] [place] [address], [place] [phone] * (ABNORMAL) Basic metabolic panel (12/05/2024 6:12 AM EDT) Only the most recent of6 resultswithin the time period is included. Sodium 136 133 - 145 mmol/L LAB CHEMISTRY METHOD 12/05/2024 7:16 AM [facility] Potassium 3.4(L) 3.5 - 5.5 mmol/L LAB CHEMISTRY METHOD 12/05/2024 7:16 AM [facility] Chloride 100 96 - 110 mmol/L LAB CHEMISTRY METHOD 12/05/2024 7:16 AM [facility] CO2 29 21 - 32 mmol/L LAB CHEMISTRY METHOD 12/05/2024 7:16 AM [facility] LAB Anion Gap 7 3 - 11 LAB CHEMISTRY METHOD 12/05/2024 7:16 AM [facility] Glucose 93 70 - 100 mg/dL LAB CHEMISTRY METHOD 12/05/2024 7:16 AM [facility] BUN 22 5 - 25 mg/dL LAB CHEMISTRY METHOD 12/05/2024 7:16 AM [facility] Creatinine 3.63(H) 0.70 - 1.30 mg/dL LAB CHEMISTRY METHOD 12/05/2024 7:16 AM [facility] eGFR 18(L) >=60 mL/min/1. 73m2 LAB CHEMISTRY METHOD 12/05/2024 7:16 AM [facility] Comment:Calculation based on the Chronic Kidney Disease Epidemiology Collaboration (CKD-EPI) equation refit without adjustment for race. BUN/Creatinine Ratio 6.1 LAB CHEMISTRY METHOD 12/05/2024 7:16 AM [facility] Calcium 7.5(L) 8.5 - 10.5 mg/dL LAB CHEMISTRY METHOD 12/05/2024 7:16 AM [facility] Blood Venous blood specimen / Unknown Venipuncture / Unknown 12/05/2024 6:12 AM EDT 12/05/2024 6:21 AM EDT Dale IBANEZ LAB BLOOD ORDERABLES Kayla l Result [facility] [address] [place] [address], * PSA total, free and complexed, diagnostic (12/04/2024 6:19 AM EDT) PSA 0.60 0.00 - 4.00 ng/mL LAB CHEMISTRY METHOD 12/04/2024 8:[address] [facility] PSA, Complexed 0.44 0.00 - 3.00 ng/mL LAB CHEMISTRY METHOD 12/04/2024 8:[address] [facility] PSA, Free 0.2 ng/mL LAB CHEMISTRY METHOD 12/04/2024 8:[address] [facility] PSA, Free Pct 33.3 >25.0 % LAB CHEMISTRY METHOD 12/04/2024 8:[address] [facility] Blood Venous blood specimen / Unknown Venipuncture / Unknown 12/04/2024 6:19 AM EDT 12/04/2024 6:[address] [facility] - 12/04/2024 8:40 PM EDT Free PSA is a calculated value. The diagnostic usefulness of % free PSA has not been established in patients with Total PSA below 2.6 or above 10 ng/mL. This test was performed using the Centaur Chemiluminescent method. PSA values obtained with other methods cannot be used interchangeably. Dale IBANEZ LAB BLOOD ORDERABLES Kayla l Result Performing Organization Address City/[facility]/ZIP Co de Phone Number [facility] [address] [place] [address], * Vancomycin random (12/04/2024 6:19 AM EDT) Vancomycin Rm 21.2 mcg/mL LAB CHEMISTRY METHOD 12/04/2024 7:[address] [facility] Blood Venous blood specimen / Unknown Venipuncture / Unknown 12/04/2024 6:19 AM EDT 12/04/2024 6:36 AM EDT us Oniel Reid MD LAB BLOOD ORDERABLES Final Resul t Performing Organization Address [facility] de Phone Number [facility] [address] [place] [address], * (ABNORMAL) Hemoglobin and hematocrit (12/03/2024 10:57 PM EDT) Only the most recent of3 resultswithin the time period is included. Hemoglobin 7.4(L) 13.5 - 17.5 g/dL LAB HEMETOLOGY METHOD 12/03/2024 11:[address] [facility] Hematocrit 22.6(L) 42.0 - 54.0 % LAB HEMETOLOGY METHOD 12/03/2024 11:[address] [facility] Blood Venous blood specimen / Unknown Venipuncture / Unknown 12/03/2024 10:57 PM EDT 12/03/2024 11:03 PM EDT us Oniel Reid MD LAB BLOOD ORDERABLES Final Resul t Performing Organization Address [facility] de Phone Number [facility] [address] [place] [address], [place] [phone] * Transfuse RBC (12/03/2024 9:54 PM EDT) Only the most recent of4 resultswithin the time period is included. us Dale IBANEZ BLOOD TRANSFUSION ORDERAB LES Final Result * CT Angio Abdomen Pelvis wo and/or w Contrast (12/03/2024 6:34 PM EDT) Anatomical Region Laterality Modality Body Computed Tomogra phy 12/03/2024 7:25 PM EDT Addenda Addendum by Gal Neil MD on 12/03/2024 7:37 PM EDT ADDENDUM: This report was discussed with Agustin Barakat on Dec 03, 2024 19:36:00 EDT. This document has been electronically signed by: Corin Beckford on 12/03/2024 19:37:07 Impressions 12/03/2024 7:25 PM EDT 1. Moderate retroperitoneal blood products secondary extending from the right kidney along the retroperitoneal soft tissues and right pericolic gutter into the pelvis and right inguinal canal. No focus of active hemorrhage identified. 2. Mild right hydronephrosis and proximal right hydroureter. Suspect obstruction or stricturing of the mid right ureter as it passes through the retroperitoneal blood products. 3. Multiple enlarged pelvic and prominent retroperitoneal lymph nodes. Findings can be associated with metastatic disease. Recommend correlation with clinical history. 4. Prostatomegaly. 5. Indeterminate left adrenal nodule measuring 1.3 cm. This document has been electronically signed by: Gal Neil MD on 12/03/2024 19:25:54 Narrative 12/03/2024 7:25 PM EDT INDICATION: Retroperitoneal bleed from Right kidney CT angiogram of the abdomen and pelvis. COMPARISON: None provided. FINDINGS: Abdominal aorta is normal in caliber without dissection or aneurysm. Celiac trunk and visualized portions of the SMA are widely patent. Renal arteries are widely patent. Visualized portions of the TOYA are patent. Minimal calcified plaque present along the common iliac arteries without significant stenosis. External iliac and internal iliac arteries are widely patent. Trace bilateral pleural effusions with overlying atelectasis. Cardiomegaly. No focal hepatic lesion. Gallbladder is contracted. Normal spleen. Normal pancreas. Left adrenal nodule measuring 1.3 cm, indeterminate. Normal right adrenal gland. Normal appearance of the left kidney. No left-sided hydronephrosis or hydroureter. Subcapsular hematoma along the posterior medial aspect of the right kidney with rupture extending along the retroperitoneal soft tissues and right pericolic gutter into the pelvis. Moderate amount of blood products present within the retroperitoneal soft tissues on the right. No focus of active hemorrhage identified. Mild right hydronephrosis and proximal right hydroureter. The ureter is poorly visualized as it extends through the blood products distally. No ureteral or renal calculus identified on the right. Normal appendix. Mild colonic stool burden. No bowel obstruction. Multiple normal-sized retroperitoneal lymph nodes. Mild aortoiliac atherosclerotic vascular calcifications. Urinary bladder is unremarkable given degree of distention. Prostate is enlarged measuring up to 5.5 cm. Multiple enlarged pelvic lymph nodes. For example right pelvic sidewall node measuring 1.9 cm (series 2, image 708). Small right inguinal hernia containing blood products. Mild spondylosis. Flowing marginal osteophytes along the lower thoracic spine. No acute fracture or suspicious bone lesion. Procedure Note Gal Neil MD - 12/03/2024 INDICATION: Retroperitoneal bleed from Right kidney CT angiogram of the abdomen and pelvis. COMPARISON: None provided. FINDINGS: Abdominal aorta is normal in caliber without dissection or aneurysm. Celiac trunk and visualized portions of the SMA are widely patent. Renal arteries are widely patent. Visualized portions of the TOYA are patent. Minimal calcified plaque present along the common iliac arteries without significant stenosis. External iliac and internal iliac arteries are widely patent. Trace bilateral pleural effusions with overlying atelectasis. Cardiomegaly. No focal hepatic lesion. Gallbladder is contracted. Normal spleen.Normal pancreas. Left adrenal nodule measuring 1.3 cm, indeterminate. Normal right adrenal gland. Normal appearance of the left kidney. No left-sided hydronephrosis or hydroureter. Subcapsular hematoma along the posterior medial aspect of the rightkidney with rupture extending along the retroperitoneal soft tissues and right pericolic gutter into the pelvis. Moderate amount of blood products present within the retroperitoneal soft tissues on the right. No focusof active hemorrhage identified. Mild right hydronephrosis and proximalright hydroureter. The ureter is poorly visualized as it extends through the blood products distally. No ureteral or renal calculus identified on the right. Normal appendix. Mild colonic stool burden. No bowel obstruction. Multiple normal-sized retroperitoneal lymph nodes. Mild aortoiliac atherosclerotic vascular calcifications. Urinary bladder is unremarkable given degree of distention. Prostate is enlarged measuring up to 5.5 cm. Multiple enlarged pelvic lymph nodes. For example right pelvic sidewall node measuring 1.9 cm (series 2, image 708). Small right inguinal hernia containing blood products. Mild spondylosis. Flowing marginal osteophytes along the lower thoracic spine. No acute fracture or suspicious bone lesion. IMPRESSION: 1. Moderate retroperitoneal blood products secondary extending from the right kidney along the retroperitoneal soft tissues and right pericolic gutter into the pelvis and right inguinal canal. No focus of active hemorrhage identified. 2. Mild right hydronephrosis and proximal right hydroureter. Suspect obstruction or stricturing of the mid right ureter as it passes through the retroperitoneal blood products. 3. Multiple enlarged pelvic and prominent retroperitoneal lymph nodes. Findings can be associated with metastatic disease. Recommendcorrelation with clinical history. 4. Prostatomegaly. 5. Indeterminate left adrenal nodule measuring 1.3 cm. This document has been electronically signed by: Gal Neil MD on 12/03/2024 19:25:[address] PROCEDURES Edited Result - Final * Prepare RBC: 1 Units (12/03/2024 5:58 PM EDT) Only the most recent of3 resultswithin the time period is included. Product Code [id number] 12/03/2024 7:[address] [facility] Unit Number [id number] 12/04/19 7:[address] [facility] Crossmatch Compatible 12/03/2024 6:[address] [facility] Dispense Status Transfused 12/03/2024 7:[address] [facility] Unit ABO Rh APOS 12/03/2024 7:[address] [facility] Unit Expiration Date Time [id number] 12/03/2024 7:[address] [facility] Unit Blood Type 6200 12/03/2024 7:[address] [facility] Blood Venous blood specimen / Unknown 12/03/2024 5:58 PM EDT 12/01/2024 2:26 PM EDT Dale IBANEZ BLOOD BANK PRODUCT ORDERA BLES Final Result [facility] [address] [place] [address], [place] [phone] * Activated partial thromboplastin time (12/03/2024 4:20 PM EDT) [facility] aPTT 32.2 24.1 - 39.3 sec LAB COAGULATION METHOD 12/03/2024 4:[address] [facility] Blood Venous blood specimen / Unknown Venipuncture / Unknown 12/03/2024 4:20 PM EDT 12/03/2024 4:29 PM EDT us María R Dillan PA LAB BLOOD ORDERABLES Final Res ult Performing Organization Address City/[facility]/ZIP Co de Phone Number [facility] [address] [place] [address], [place] [phone] * (ABNORMAL) Prothrombin time with INR (12/03/2024 4:20 PM EDT) [facility] Protime 14.1(H) 10.6 - 13.9 sec LAB COAGULATION METHOD 12/03/2024 4:[address] [facility] INR 1.1 LAB COAGULATION METHOD 12/03/2024 4:[address] [facility] Blood Venous blood specimen / Unknown Venipuncture / Unknown 12/03/2024 4:20 PM EDT 12/03/2024 4:29 PM EDT us María R Dillan PA LAB BLOOD ORDERABLES Final Res ult [facility] [address] [place] [address], [place] [phone] * MRSA molecular study (12/03/2024 2:54 PM EDT) [facility] MRSA Screen PCR Not Detected Not Detected LAB MICROBIOLOGY METHOD 12/03/2024 4:[address] [facility] Swab Both anterior nares / Unknown Non-blood Collection / Unknown 12/03/2024 2:54 PM EDT 12/03/2024 3:03 PM EDT us Rosemary Page MD LAB MICROBIOLOGY - GENERAL ORDER ERIN Final Result [facility] [address] [place] [address], [place] [phone] * CT Chest/Abdomen/Pelvis wo Contrast (12/03/2024 2:11 PM EDT) Anatomical Region Laterality Modality Body Computed Tomogra phy 12/03/2024 2:43 PM EDT Impressions 12/03/2024 2:51 PM EDT Large right perinephric/retroperitoneal hematoma. Findings communicated to the team at time of interpretation. -------- FINAL REPORT -------- Dictated By: Kenneth Hebert Dictated Date: 12/03/2024 14:43 ET Assigned Physician: Kenneth Hebert Reviewed and Electronically Signed By: Kenneth Hebert Signed Date: 12/03/2024 14:51 ET Workstation ID: [id number] Transcribed By: Self Edit Transcribed Date: 12/03/2024 14:43 ET Narrative 12/03/2024 2:[address] CHEST, ABDOMEN AND PELVIS WITHOUT CONTRAST INDICATION: fever, cough TECHNIQUE: Chest, abdomen and pelvis CT without contrast. Multiplanar reformats were created and interpreted. The examination was performed utilizing dose reduction techniques. Total DLP: 1111 mGy/cm COMPARISON: No priors available. FINDINGS: CT CHEST: LUNGS/PLEURA: No consolidation. Trace effusions. MEDIASTINUM: Cardiomegaly with hyperdense blood pool compatible with anemia. Coronary artery calcifications. Tunneled right IJ central venous catheter. CHEST WALL: No axillary lymphadenopathy or mass. CT ABDOMEN AND PELVIS: HEPATOBILIARY: No focal liver lesions. No cholelithiasis or biliary duct dilatation. SPLEEN: no focal lesion PANCREAS: No focal mass or ductal dilatation. ADRENALS: No nodules. KIDNEYS/URETERS: There is a large right retroperitoneal hematoma 9.9 x 8 x 19.2 cm arising from the right kidney measuring PELVIC ORGANS/BLADDER: Unremarkable. PERITONEUM / RETROPERITONEUM: Large right perinephric/retroperitoneal hematoma tracking down the right hemiabdomen and into the right groin. VESSELS: Scattered atherosclerotic calcifications throughout the aorta and its major branches. No aneurysm. GI TRACT: No bowel distention or wall thickening. Normal appendix. BONES AND SOFT TISSUES: Scattered degenerative changes seen throughout the bones. No acute fracture. Soft tissues are unremarkable. Procedure Note Kenneth Hebert MD - 12/03/2024 CT CHEST, ABDOMEN AND PELVIS WITHOUT CONTRAST INDICATION: fever, cough TECHNIQUE: Chest, abdomen and pelvis CT without contrast. Multiplanarreformats were created and interpreted. The examination was performedutilizing dose reduction techniques. Total DLP: 1111 mGy/cm COMPARISON: No priors available. FINDINGS: CT CHEST: LUNGS/PLEURA: No consolidation. Trace effusions. MEDIASTINUM: Cardiomegaly with hyperdense blood pool compatible withanemia. Coronary artery calcifications. Tunneled right IJ central venouscatheter. CHEST WALL: No axillary lymphadenopathy or mass. CT ABDOMEN AND PELVIS: HEPATOBILIARY: No focal liver lesions. No cholelithiasis or biliary ductdilatation. SPLEEN: no focal lesion PANCREAS: No focal mass or ductal dilatation. ADRENALS: No nodules. KIDNEYS/URETERS: There is a large right retroperitoneal hematoma 9.9 x 8 x19.2 cm arising from the right kidney measuring PELVIC ORGANS/BLADDER: Unremarkable. PERITONEUM / RETROPERITONEUM: Large right perinephric/retroperitonealhematoma tracking down the right hemiabdomen and into the right groin. VESSELS: Scattered atherosclerotic calcifications throughout the aorta andits major branches. No aneurysm. GI TRACT: No bowel distention or wall thickening. Normal appendix. BONES AND SOFT TISSUES: Scattered degenerative changes seen throughout thebones. No acute fracture. Soft tissues are unremarkable. IMPRESSION: Large right perinephric/retroperitoneal hematoma. Findings communicated to the team at time of interpretation. -------- FINAL REPORT -------- Dictated By: Kenneth Hebert Dictated Date: 12/03/2024 14:43 ET Assigned Physician: Kenneth Hebert Reviewed and Electronically Signed By: Kenneth Hebert Signed Date: 12/03/2024 14:51 ET Workstation ID: [id number] Transcribed By: Self Edit Transcribed Date: 12/03/2024 14:43 ET us Dale IBANEZ IMG CT PROCEDURES Final R esult * Treponema pallidum antibody with reflex to RPR and particle agglutination (12/03/2024 1:47 PM EDT) [facility] T. Pallidum Antibodies Negative Negative LAB CHEMISTRY METHOD 12/03/2024 3:[address] [facility] Blood Venous blood specimen / Unknown Venipuncture / Unknown 12/03/2024 1:47 PM EDT 12/03/2024 1:52 PM EDT us Rosemary Page MD LAB BLOOD ORDERABLES Final Resul t Performing Organization Address [facility] de Phone Number [facility] [address] [place] [address], [place] [phone] * Borrelia burgdorferi antibody (12/03/2024 1:47 PM EDT) [facility] Lyme Ab Negative Negative LAB CHEMISTRY METHOD 12/03/2024 3:[address] [facility] Comment: No laboratory evidence of infection with B. burgdorferi (Lyme disease). Negative results may occur in patients recently infected (<=14 days) with B. burgdorferi. If recent infection is suspected, repeat testing on a new sample collected in 7- 14 days is recommended. Blood Venous blood specimen / Unknown Venipuncture / Unknown 12/03/2024 1:47 PM EDT 12/03/2024 1:52 PM EDT us Rosemary Page MD LAB BLOOD ORDERABLES Final Resul t Performing Organization Address [facility]/ZIP Co de Phone Number [facility] [address] [place] [address], [place] [phone] * Blood parasite smear (12/03/2024 1:47 PM EDT) [facility] Preliminary Thin Smear No Parasite Seen No Parasite Seen 12/04/2024 10:[address] [facility] Thick Smear No Parasite Seen No Parasite Seen 12/04/2024 10:44 AM [facility] Blood Venous blood specimen / Unknown Venipuncture / Unknown 12/03/2024 1:47 PM EDT 12/03/2024 1:52 PM EDT us Rosemary Page MD LAB MICROBIOLOGY - GENERAL ORDER ERIN Final Result [facility] [address] [place] [address], [place] [phone] * (ABNORMAL) Urinalysis with reflex microscopic and culture (12/03/2024 1:26 PM EDT) [facility] Specific [place] Urine 1.020 1.003 - 1.030 LAB URINALYSIS - AUTOMATED METHOD 12/03/2024 1:42 PM [facility] pH, Urine 8.0 5.0 - 8.0 pH LAB URINALYSIS - AUTOMATED METHOD 12/03/2024 1:42 PM [facility] Leukocytes, Urine Negative Negative LAB URINALYSIS - AUTOMATED METHOD 12/03/2024 1:42 PM [facility] Nitrite, Urine Negative Negative LAB URINALYSIS - AUTOMATED METHOD 12/03/2024 1:42 PM [facility] Protein, Urine >=1000(A) <=Trace mg/dL LAB URINALYSIS - AUTOMATED METHOD 12/03/2024 1:42 PM [facility] Glucose, Urine 250(A) Negative mg/dL LAB URINALYSIS - AUTOMATED METHOD 12/03/2024 1:42 PM [facility] Ketones, Urine Negative Negative mg/dL LAB URINALYSIS - AUTOMATED METHOD 12/03/2024 1:42 PM [facility] Urobilinogen , Urine 0.2 0.2 - 1.0 mg/dL LAB URINALYSIS - AUTOMATED METHOD 12/03/2024 1:[address] [facility] Bilirubin, Urine Negative Negative LAB URINALYSIS - AUTOMATED METHOD 12/03/2024 1:[address] [facility] Blood, Urine Negative Negative LAB URINALYSIS - AUTOMATED METHOD 12/03/2024 1:[address] [facility] RBC, Urine 5.0(H) 0 - 4 /HPF LAB URINALYSIS - AUTOMATED METHOD 12/03/2024 1:[address] [facility] WBC, Urine 2.2 0 - 4 /HPF LAB URINALYSIS - AUTOMATED METHOD 12/03/2024 1:[address] [facility] Squamous Epithelial, Urine >100(H) 0 - 60 /LPF LAB URINALYSIS - AUTOMATED METHOD 12/03/2024 1:[address] [facility] Bacteria, Urine Negative Negative /HPF LAB URINALYSIS - AUTOMATED METHOD 12/03/2024 1:[address] [facility] Hyaline Casts, Urine 2.4 0 - 3 /LPF LAB URINALYSIS - AUTOMATED METHOD 12/03/2024 1:[address] [facility] Urine Urine specimen obtained by clean catch procedure / Unknown Non-blood Collection / Unknown 12/03/2024 1:26 PM EDT 12/03/2024 1:33 PM EDT us Heather IBANEZ LAB URINE ORDERABLES Final Resu lt [facility] [address] [place] [address], * Blood Culture, Peripheral Draw #1 (12/03/2024 9:46 AM EDT) Only the most recent of4 resultswithin the time period is included. Culture, Blood No growth at 5 days 12/08/2024 11:[address] [facility] Blood Venous blood specimen / Unknown Venipuncture / Unknown 12/03/2024 9:46 AM EDT 12/03/2024 9:54 AM EDT Dale Celaya MA LAB MICROBIOLOGY - GENERA L ORDERABLES Final Result Performing Organization Address [facility] Co de Phone Number [facility] [address] [place] [address], [place] [phone] * Lactate (12/03/2024 9:40 AM EDT) Only the most recent of2 resultswithin the time period is included. [facility] Lactate 1.6 0.4 - 2.0 mmol/L LAB CHEMISTRY METHOD 12/03/2024 10:[address] [facility] Blood Venous blood specimen / Unknown Venipuncture / Unknown 12/03/2024 9:40 AM EDT 12/03/2024 9:54 AM EDT Dale IBANEZ LAB BLOOD ORDERABLES Kayla l Result Performing Organization Address [facility] de Phone Number [facility] [address] [place] [address], [place] [phone] * (ABNORMAL) Procalcitonin (12/03/2024 9:39 AM EDT) [facility] Procalcitonin 3.24(H) <=0.16 ng/mL LAB CHEMISTRY METHOD 12/03/2024 1:[address] [facility] Blood Venous blood specimen / Unknown Venipuncture / Unknown 12/03/2024 9:39 AM EDT 12/03/2024 9:[address] [facility] - 12/03/2024 1:14 PM EDT Procalcitonin > 2.00 ng/ml: Procalcitonin Levels above 2.00 ng/ml, on the first day of ICU admission represent a high risk for progression to severe sepsis and/or septic shock. Procalcitonin < 0.50 ng/ml: Procalcitonin levels below 0.50 ng/ml on the first day of ICU admission represent a low risk for progression to severe sepsis and/or septic shock. Concentrations <0.5 ng/mL do not exclude an infection, on account of local ized infections (without systemic signs) which can be associated with such low concentrations, or a systemic infection in its initial stages (<6 hours). Furthermore, increased procalcitonin can occur without infection. PCT concentrations between 0.5 and 2.0 ng/mL should be interpreted taking into account the patient's history. It is recommended to retest PCT within 6-24 hours if any concentrations <2.0 ng/mL are obtained. Dale IBANEZ LAB BLOOD ORDERABLES Kayla reid Result [facility] [address] [place] [address], [place] [phone] * XR Chest 1 View (12/03/2024 8:50 AM EDT) Only the most recent of2 resultswithin the time period is included. Anatomical Region Laterality Modality Body Radiographic Toya ging 12/03/2024 9:12 AM EDT Impressions 12/03/2024 9:12 AM EDT FINDINGS/IMPRESSION: No pneumonia or pulmonary edema. No pleural effusion or pneumothorax. Right IJ catheter terminates in the caval atrial junction. Cardiac silhouette and bones are normal. -------- FINAL REPORT -------- Dictated By: OBDULIO AVILA Dictated Date: 12/03/2024 09:12 ET Assigned Physician: OBDULIO AVILA Reviewed and Electronically Signed By: OBDULIO AVILA Signed Date: 12/03/2024 09:12 ET Workstation ID: [id number] Transcribed By: Self Edit Transcribed Date: 12/03/2024 09:12 ET Narrative 12/03/2024 9:12 AM EDT XR CHEST 1 VIEW INDICATION: Fever TECHNIQUE: XR CHEST 1 VIEW COMPARISON: 12/01/2024 Procedure Note Obdulio Avila MD - 12/03/2024 XR CHEST 1 VIEW INDICATION: Fever TECHNIQUE: XR CHEST 1 VIEW COMPARISON: 12/01/2024 IMPRESSION: FINDINGS/IMPRESSION: No pneumonia or pulmonary edema. No pleural effusionor pneumothorax. Right IJ catheter terminates in the caval atrialjunction. Cardiac silhouette and bones are normal. -------- FINAL REPORT -------- Dictated By: OBDULIO AVILA Dictated Date: 12/03/2024 09:12 ET Assigned Physician: OBDULIO AVILA Reviewed and Electronically Signed By: OBDULIO AVILA Signed Date: 12/03/2024 09:12 ET Workstation ID: [id number] Transcribed By: Self Edit Transcribed Date: 12/03/2024 09:12 ET Dale IBANEZ IM XR PROCEDURES Final R esult * (ABNORMAL) CBC - Every 3 Days (12/03/2024 5:30 AM EDT) Only the most recent of2 resultswithin the time period is included. WBC 8.5 4.8 - 10.8 K/mcL LAB HEMETOLOGY METHOD 12/03/2024 9:[address] [facility] RBC 2.10(L) 4.50 - 5.50 M/mcL LAB HEMETOLOGY METHOD 12/03/2024 9:[address] [facility] Hemoglobin 6.4(LL) 13.5 - 17.5 g/dL LAB HEMETOLOGY METHOD 12/03/2024 9:[address] [facility] Hematocrit 19.2(LL) 42.0 - 54.0 % LAB HEMETOLOGY METHOD 12/03/2024 9:[address] [facility] MCV 91.9 79.0 - 98.0 FL LAB HEMETOLOGY METHOD 12/03/2024 9:[address] [facility] MCH 30.5 27.0 - 32.0 pcg LAB HEMETOLOGY METHOD 12/03/2024 9:[address] [facility] MCHC 33.2 32.0 - 37.0 g/dL LAB HEMETOLOGY METHOD 12/03/2024 9:[address] [facility] RDW 13.7 11.0 - 15.0 % LAB HEMETOLOGY METHOD 12/03/2024 9:[address] [facility] Platelets 202 130 - 400 K/mcL LAB HEMETOLOGY METHOD 12/03/2024 9:[address] [facility] MPV 10.2 7.0 - 11.0 FL LAB HEMETOLOGY METHOD 12/03/2024 9:[address] [facility] NRBC 0.0 <1.0 % LAB HEMETOLOGY METHOD 12/03/2024 9:[address] [facility] NRBC Absolute 0.00 <0.10 K/mcL LAB HEMETOLOGY METHOD 12/03/2024 9:[address] [facility] Blood Venous blood specimen / Unknown Venipuncture / Unknown 12/03/2024 5:30 AM EDT 12/03/2024 6:17 AM EDT Dale IBANEZ LAB BLOOD ORDERABLES Kayla l Result [facility] [address] [place] [address], * Phosphorus (12/03/2024 5:30 AM EDT) Phosphorus 2.6 2.5 - 4.5 mg/dL LAB CHEMISTRY METHOD 12/03/2024 7:[address] [facility] Blood Venous blood specimen / Unknown Venipuncture / Unknown 12/03/2024 5:30 AM EDT 12/03/2024 6:13 AM EDT Dale [facility] LAB BLOOD ORDERABLES Kayla l Result Performing Organization Address [facility]/ZIP Co de Phone Number [facility] [address] [place] [address], [place] [phone] * Magnesium (12/03/2024 5:30 AM EDT) Only the most recent of2 resultswithin the time period is included. [facility] Magnesium 2.0 1.9 - 2.6 mg/dL LAB CHEMISTRY METHOD 12/03/2024 7:[address] [facility] Blood Venous blood specimen / Unknown Venipuncture / Unknown 12/03/2024 5:30 AM EDT 12/03/2024 6:13 AM EDT [facility] BLOOD ORDERABLES Kayla l Result Performing Organization Address [facility] Co de Phone Number [facility] [address] [place] [address], [place] [phone] * Respiratory virus panel molecular study (12/02/2024 9:56 PM EDT) [facility] Adenovirus Detection by PCR Not Detected Not Detected LAB MICROBIOLOGY METHOD 12/02/2024 10:[address] [facility] Influenza A PCR Not Detected Not Detected LAB MICROBIOLOGY METHOD 12/02/2024 10:[address] [facility] Influenza B PCR Not Detected Not Detected LAB MICROBIOLOGY METHOD 12/02/2024 10:[address] [facility] Coronavirus 229E Not Detected Not Detected LAB MICROBIOLOGY METHOD 12/02/2024 10:[address] [facility] Coronavirus HKU1 Not Detected Not Detected LAB MICROBIOLOGY METHOD 12/02/2024 10:[address] [facility] Coronavirus OC43 Not Detected Not Detected LAB MICROBIOLOGY METHOD 12/02/2024 10:[address] [facility] Coronavirus NL63 Not Detected Not Detected LAB MICROBIOLOGY METHOD 12/02/2024 10:[address] [facility] Parainfluenza Virus 1 Not Detected Not Detected LAB MICROBIOLOGY METHOD 12/02/2024 10:[address] [facility] Parainfluenza Virus 2 Not Detected Not Detected LAB MICROBIOLOGY METHOD 12/02/2024 10:[address] [facility] Parainfluenza Virus 3 Not Detected Not Detected LAB MICROBIOLOGY METHOD 12/02/2024 10:[address] [facility] Parainfluenza Virus 4 Not Detected Not Detected LAB MICROBIOLOGY METHOD 12/02/2024 10:[address] [facility] RSV PCR Not Detected Not Detected LAB MICROBIOLOGY METHOD 12/02/2024 10:[address] [facility] Human Metapneumovirus A and B Not Detected Not Detected LAB MICROBIOLOGY METHOD 12/02/2024 10:[address] [facility] Rhinovirus/Entero virus Not Detected Not Detected LAB MICROBIOLOGY METHOD 12/02/2024 10:[address] [facility] Bordetella pertussis Not Detected Not Detected LAB MICROBIOLOGY METHOD 12/02/2024 10:[address] [facility] Bordetella parapertussis Not Detected Not Detected LAB MICROBIOLOGY METHOD 12/02/2024 10:[address] [facility] Mycoplasma pneumo by PCR Not Detected Not Detected LAB MICROBIOLOGY METHOD 12/02/2024 10:[address] [facility] Chlamydia pneumoniae Not Detected Not Detected LAB MICROBIOLOGY METHOD 12/02/2024 10:[address] [facility] SARS COV-2 Not Detected Not Detected LAB MICROBIOLOGY METHOD 12/02/2024 10:[address] [facility] Swab Both anterior nares / Unknown Non-blood Collection / Unknown 12/02/2024 9:56 PM EDT 12/02/2024 10:[address] [facility] - 12/02/2024 10:55 PM EDT Testing was performed using the [employer] Respiratory Pathogen PCR Assay. All results must be correlated with the clinical findings. Results should not be used as the sole basis for diagnosis. False Negative results may occur from the presence of sequence variants in the region targeted by the assay or the presence of inhibitors. Results may be affected by concurrent antiviral/antimicrobial therapy or levels of organisms that are below the limit of detection. us Oniel Reid MD LAB MICROBIOLOGY - GENERAL ORDER ERIN Final Result Performing Organization Address [facility]/ZIP Co de Phone Number [facility] [address] [place] [address], * Hepatitis B screening panel (12/02/2024 5:12 AM EDT) Hepatitis B Surface Ag Negative Negative LAB CHEMISTRY METHOD 12/02/2024 12:[address] [facility] Hep B Core Total Ab Negative Negative LAB CHEMISTRY METHOD 12/02/2024 12:[address] [facility] Hepatitis B Surface Ab Negative Negative LAB CHEMISTRY METHOD 12/02/2024 12:[address] [facility] Blood Venous blood specimen / Unknown Venipuncture / Unknown 12/02/2024 5:12 AM EDT 12/02/2024 6:31 AM EDT us Oniel Reid MD LAB BLOOD ORDERABLES Final Resul t Performing Organization Address City/[facility]/ZIP Co de Phone Number [facility] [address] [place] [address], * Hepatitis B surface antibody quantitative (12/02/2024 5:12 AM EDT) Hepatitis B Surface Ab Negative Negative LAB CHEMISTRY METHOD 12/02/2024 12:[address] [facility] Hepatitis B Surface Ab Quantitative <3.1 mIU/mL LAB CHEMISTRY METHOD 12/02/2024 12:[address] [facility] Blood Venous blood specimen / Unknown Venipuncture / Unknown 12/02/2024 5:12 AM EDT 12/02/2024 6:[address] [facility] - 12/02/2024 12:15 PM EDT >=10 mIU/mL is considered to be consistent with immunity. Oniel Reid MD LAB BLOOD ORDERABLES Final Resul t Performing Organization Address City/[facility]/ZIP Co de Phone Number [facility] [address] [place] [address], [place] [phone] * Type and screen (12/01/2024 2:13 PM EDT) Pathologist [facility]BO Group A 12/01/2024 3:[address] [facility] Rh Type Positive 12/01/2024 3:[address] [facility] Antibody Screen Negative 12/01/2024 3:[address] [facility] Blood Venous blood specimen / Unknown Venipuncture / Unknown 12/01/2024 2:13 PM EDT 12/01/2024 2:26 PM EDT us Davis Briceno DO LAB BLOOD BANK TEST ORDERAB LES Final Result Performing Organization Address [facility]/State/ZIP Co de Phone Number [facility] [address] [place] [address], [place] [phone] * Troponin I high sensitivity (12/01/2024 12:39 PM EDT) Only the most recent of2 resultswithin the time period is included. High Sensitivity Troponin I 59 <=79 ng/L LAB CHEMISTRY METHOD 12/01/2024 1:[address] [facility] Blood Venous blood specimen / Unknown Venipuncture / Unknown 12/01/2024 12:39 PM EDT 12/01/2024 1:[address] [facility] - 12/01/2024 1:46 PM EDT High levels of biotin in samples may falsely decrease hsTroponin values. Use caution when interpreting hsTroponin results in patients taking biotin who exhibit renal impairment (eGFR <60) or in patients taking more than 20 mg/day of biotin. us Davis Briceno DO LAB BLOOD ORDERABLES Final Result [facility] [address] [place] [address], * CT Head wo Contrast (12/01/2024 11:45 AM EDT) Anatomical Region Laterality Modality Head and Neck Computed Tomogra phy 12/01/2024 11:5 9 AM EDT Impressions 12/01/2024 12:09 PM EDT No mass, hemorrhage or large territorial infarct. -------- FINAL REPORT -------- Dictated By: Kenneth Hebert Dictated Date: 12/01/2024 11:59 ET Assigned Physician: Kenneth Hebert Reviewed and Electronically Signed By: Kenneth Hebert Signed Date: 12/01/2024 12:09 ET Workstation ID: [id number] Transcribed By: Self Edit Transcribed Date: 12/01/2024 12:00 ET Narrative 12/01/2024 12:09 PM EDT PROCEDURE: HEAD CT INDICATION: Dizziness, non-specific TECHNIQUE: CT of the head without intravenous contrast. Multiplanar reformats. The examination was performed utilizing dose reduction techniques. Total DLP 1070 COMPARISON: No priors available. FINDINGS: No acute territorial infarct, mass effect, or intracranial hemorrhage. 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 There is also an age-indeterminate but presumed remote punctate superior left cerebellar infarct. No significant white matter disease No hydrocephalus. Visualized paranasal sinuses are clear. Mastoid air cells are clear. No calvarial fracture. Procedure Note Kenneth Hebert MD - 12/01/2024 PROCEDURE: HEAD CT INDICATION: Dizziness, non-specific TECHNIQUE: CT of the head without intravenous contrast. Multiplanarreformats. The examination was performed utilizing dose reductiontechniques. Total DLP 1070 COMPARISON: No priors available. 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 There is also anage-indeterminate but presumed remote punctate superior left cerebellarinfarct. No significant white matter disease No hydrocephalus. Visualized paranasal sinuses are clear. Mastoid air cells are clear. No calvarial fracture. IMPRESSION: No mass, hemorrhage or large territorial infarct. -------- FINAL REPORT -------- Dictated By: Kenneth Hebert Dictated Date: 12/01/2024 11:59 ET Assigned Physician: Kenneth Hebert Reviewed and Electronically Signed By: Kenneth Hebert Signed Date: 12/01/2024 12:09 ET Workstation ID: [id number] Transcribed By: Self Edit Transcribed Date: 12/01/2024 12:00 ET Davis Briceno DO IMG CT PROCEDURES Final Res ult * Ethanol (12/01/2024 10:50 AM EDT) Ethanol Level <3 0 - 10 mg/dL LAB CHEMISTRY METHOD 12/01/2024 1:[address] [facility] Blood Venous blood specimen / Unknown Venipuncture / Unknown 12/01/2024 10:50 AM EDT 12/01/2024 11:41 AM EDT Davis Briceno DO LAB BLOOD ORDERABLES Final Result [facility] [address] [place] [address], * ECG 12 lead (12/01/2024 10:35 AM EDT) Ventricular Rate ECG 80 BPM GEMUSE Atrial Rate 80 BPM GEMUSE P-R Interval 164 ms GEMUSE QRS Duration 94 ms GEMUSE Q-T Interval 408 ms GEMUSE QTc 470 ms GEMUSE P Wave [place] 40 degrees GEMUSE R [place] 55 degrees GEMUSE T [place] 81 degrees GEMUSE ECG Interpretation Normal sinus rhythm ST and T wave abnormality, consider lateral ischemia Abnormal ECG When compared with ECG of 26-FEB-2024 15:03, T wave inversion now evident in Anterolateral leads Confirmed by Reuben SWIFT JOHN ([id number]) on 12/01/2024 7:20:39 PM GEMUSE 12/01/2024 10:3 5 AM EDT 12/01/2024 7:20 PM EDT Davis Briceno DO ECG ORDERABLES Final Resul t GEMUSE * Lipid panel with reflex to direct LDL (10/13/2024 9:58 AM EDT) Pathologist [facility] Cholesterol 159 0 - 200 mg/dL LAB CHEMISTRY METHOD 10/13/2024 1:[address] [facility] Triglycerides 83 0 - 150 mg/dL LAB CHEMISTRY METHOD 10/13/2024 1:[address] [facility] HDL 68 >=40 mg/dL LAB CHEMISTRY METHOD 10/13/2024 1:[address] [facility] LDL Calculated 74 0 - 100 mg/dL LAB CHEMISTRY METHOD 10/13/2024 1:[address] [facility] VLDL Cholesterol Kirk 16.6 mg/dL LAB CHEMISTRY METHOD 10/13/2024 1:[address] [facility] Non HDL Chol. (LDL+VLDL) 91 <145 mg/dL LAB CHEMISTRY METHOD 10/13/2024 1:[address] [facility] Chol/HDL Ratio 2.3 0.0 - 4.4 LAB CHEMISTRY METHOD 10/13/2024 1:[address] [facility] Blood Venous blood specimen / Unknown Venipuncture / Unknown 10/13/2024 9:58 AM EDT 10/13/2024 9:58 AM EDT Chris Boucher MD LAB BLOOD ORDERABLES Final Resu lt [facility] [address] [place] [address], * Urine Albumin Creatinine Ratio (01/28/2024) [facility] Urine Albumin Creatinine Ratio abstracted Historical Provider HEALTH MAINTENANCE Final Result * Depression Screening (01/28/2024) [facility] Depression Screening abstracted [facility] Provider HEALTH MAINTENANCE Final Result * (ABNORMAL) Hemoglobin A1c (01/28/2024) [facility] Hemoglobin A1C 7.6(A) <=6.5 % Blood Venous blood specimen / Unknown Result [facility] Historical Provider LAB BLOOD ORDERABLES Kayla l Result * Hepatitis C Screening (02/19/2023) [facility] Hepatitis C Screening abstracted Historical Provider HEALTH MAINTENANCE Final Result from Last 3 Months or Most Recently Relevant to Health Maintenance Insurance [facility] Advance Directives * Full Code - Default (Latest Code Status on File) Date Activated Date Inactivated Comments 12/01/2024 2:50 PM 12/05/2024 1:19 PM This is orde r is used when code status has not been discussed with the patient, or code status is otherwise unknown/unconfirmed To update the patient's code status, place a code status order. Do not modify or discontinue any currently active code status orders. Care Teams Center Machine Set Up Operator Relationship Specialty Start Date End Date Chris Boucher MD [address] [place] [address] PCP - General Internal Medicine 09/06/14
--- OUTSIDE RECORDS SUMMARY | 2025-02-09 14:44 | XMS_ITS | Encounter Summary ---
Author Organization [facility] Address [address] [place] [address] Care Team Providers Care Genetic Coordinator Name Role Phone Chris Boucher MD Primary Care Provider [phone] Encounter Details Date Type Department Care Team (Late st Contact Info) Description 11/24/2024 Referral Triage [facility] Worker [address] [address] Jagdeep Hilario Social History Tobacco [...] + Jagdeep Hilario Community Health Worker (CHW) Senior Financial Reporting Accountant/Regional documented in this encounter Plan of Treatment Upcoming Encounters Date Type Department Care Team (Late st Contact Info) Description 02/18/2025 3:30 PM EDT Appointment Radiology Department - [address] [phone] 02/18/2025 3:50 PM EDT Appointment Radiology Department - [address] [phone] 03/01/2025 11:00 AM EDT Office Visit Adult [facility] - [address] [phone] Chris Boucher MD [address] [place] [address] 03/10/2025 9:15 AM EDT Consult Orthopedic Surgery [place] [address] [place] [phone] Agustin Alvares DPM [address] [place] [address] 03/30/2025 10:00 AM EDT Ancillary Procedure [facility] - [address] [place] [phone] documented as of this encounter Visit Diagnoses Not on filedocumented in this encounter Additional Health Concerns Infection Onset Date Last Indicated Resolved Time Respiratory Rule-Out 12/02/2024 12/02/2024 025 10:55 PM EDT COVID-19 Rule-Out 12/02/2024 12/02/2024 12/02/2024 10:55 PM EDT documented as of this encounter Care Teams Genetic Coordinator Relationship Specialty Start Date End Date Chris Boucher MD [address] [place] [address] PCP - General Internal Medicine 09/06/14 documented as of this encounter
--- OUTSIDE RECORDS SUMMARY | 2025-02-09 14:44 | XMS_ITS | Clinical Summary ---
Author Organization [facility], Address [address] [place] [address] Phone Care Team Providers Care Commercial Loan Processor Name Role Phone Chris Boucher MD Primary Care Provider [phone] Allergies No known active allergies Medications zolpidem [...] tablet 4 Active Insulin Pen Needle (Pen [place]) 32G X 4 MM misc 1 Device [...] and 500 mg before bedtime. Active B Zuceqhu-C-Subfq Acid ([place]riana-Marbin) tablet Take 1 tablet by [...] Encounters Date Type Department Care Team Description 01/22/2025 Documentation Only [facility] [address] [place] [address] [place] [address] Chayito Rosenthal 01/01/2025 Telephone [facility] [address] [place] [address] Maria Alejandra Poole 01/01/2025 Telephone [facility] [address] [place] [address] Maria Alejandra Poole 12/31/2024 11:45 AM EDT Clinical Support [facility] [address] [place] [phone] Kareem Cowan MD Dizziness [R42] (Primary Dx); Excessive sweating [R61]; Orthostatic hypotension [I95.1]; End stage renal disease (HCC) [N18.6]; Type 2 diabetes mellitus, not otherwise specified (HCC) [E11.9] 12/31/2024 11:30 AM EDT Office Visit [facility] [address] [place] [address] [place] [phone] Kareem Cowan MD End stage renal disease (HCC) (Primary Dx) 12/30/2024 Telephone [facility] [address] [place] [phone] Cat Vega from Last 3 Months Social History Tobacco [...] Foot Exam 12/28/2024 Influenza Vaccine (#1) 2025 , 04/17/2021, 03/27/2017, Additional history exists Hepatitis B Vaccine Aged Out No longe r eligible based on patient's age to complete this topic Insurance Medicaid Medicaid Care Teams Commercial Loan Processor Relationship Specialty Start Date End Date Chris Boucher MD [address] [place] [id number] PCP - General Internal Medicine 12/28/24
--- OUTSIDE RECORDS SUMMARY | 2025-02-09 14:45 | XMS_ITS ---
Author Organization [address] Address [address] [place] [phone] Phone Care Team Providers Care Vice President Of Compliance Name Role Phone Chris Boucher MD Primary Care Provider [phone] [facility] - Social Service Status:Ongoing (Active) Start date:12/23/2024 Enrollment date:12/23/2024 Related program episode:Community Health Worker Program (Active) Overview Social Service service of Community Health Worker Program Case Team Name Relationship Phone Geneva Leonard Community Health Worker([facility] Staff) Continued Care and Services Coordination
--- OUTSIDE RECORDS SUMMARY | 2025-02-09 14:45 | XMS_ITS ---
Author Name Tiffanie, Clinic Address [address] [place] [address] Phone [phone] Organization [facility] e, NA DOCUMENT DISCLAIMER Multiple document versions may exist, please be sure you review the latest version. The information in the [facility] Continuity of Care Document represents a summary of certain health and medical information. It may not contain the complete medical history for the patient and should be independently verified. The represented time in the document is Eastern Time. 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 February 01, 2025 Hypotension, unspecified I95.9 Active Nov Other hypoglycemia [...] SOCIAL HISTORY Tobacco Use Status Tobacco Type Unknown if ever consumed tobacco - Caregiver Characteristics No Information Available Characteristics of Home environment No Information Available Gender and Sex Information Gender Identity Sexual [...] November 27, 2024 November 26, 2025 Active Vitamin D (Calcitriol) Oral Every Treatment 0.25 mcg Oral December 09, 2024 December 08, 2025 Active Mircera During Dialysis, Every 2 weeks 200 mcg Intravenous - push January 27, 2025 January 26, 2026 Discontinued Mircera During Dialysis, Every 2 weeks 150 mcg Intravenous - push January 13, 2025 January 12, 2026 Discontinued Home Medications Medication Instructions Dosage Route Start Date End Date Stat aripiprazole 2 mg Take by mouth once [...] 10 mg Take by mouth every morning 1/2 tablet ORAL December 30, 2024 Active mirtazapine [...] 1 tablet ORAL December 14, 2024 Active Sevelamer Carbonate Tablet 800 mg Take By Mouth Three times a day With Meals 1 Tablet By Mouth December 14, 2024 February 01, 2026 Active sodium polystyrene sulfonate 15 gram Take by mouth once a day 30 gram ORAL December 14, 2024 Active sulfasalazine 500 mg Take by mouth once a day 1 tablet ORAL December 07, 2024 Active trazodone 50 mg Take by mouth at bedtime 1 tablet ORAL December 14, 2024 Active Tums 200 mg calcium (500 mg) Take by mouth every night at bedtime 2 tablet ORAL February 05, 2025 Active Wellbutrin XL 150 mg Take by mouth once a day 1 tablet ORAL December 14, 2024 Active zolpidem 10 mg Take by mouth at bedtime 1 tablet ORAL December 14, 2024 Active VITAL SIGNS Post-Treatment Vital Signs Vital Sign Value Date / Time Blood Pressure-sitting 117/73 mmHg January 07:10 AM Blood Pressure-standing 100/64 mmHg January 162024 07:10 AM Heart Rate 99 beats per minute February 08 07:10 AM Respiratory Rate 18 breaths per minute January 07:10 AM Temperature 97.8 deg. F February 08, 2025 07:10 AM Weight Vital Sign Value Date / Time Estimated Dry Weight 80 kg February 05, 2025 11:59 PM Pre-Dialysis 83.70 kg February 08, 2025 07:10 AM Post-Dialysis 80.60 kg February 08, 2025 07:10 AM Other Other Value Date / Time Height 170.18 cm November 26, 2024 12 :00 AM Body Mass Index 27.68 kg/m2 February 09, 2025 11:08 AM LAB RESULTS Hematology Result Type Result [...] 40.0 - 75.0 % - November 27 025 Transferrin Sat. (Calc) 23 % 20 - 55 % - November 27, 2024 Hemoglobin x 3 25.8 % 42.0 - 54.0 % Low November Hemoglobin x 3 26.1 % 42.0 - 54.0 % Low December Hemoglobin x 3 25.8 % 42.0 - 54.0 % Low December Platelets 125 1000/mcL 130 - 400 1000/mcL Low December 30, 2024 Hemoglobin x 3 27.9 % 42.0 - 54.0 % Low December Ferritin 1818 ng/mL 22 - 322 ng/mL High December 30 Monocytes 6.6 % 3.0 - 10.0 % [...] 27.0 - 31.0 pg - December 30 WBC (No Diff) 4.92 1000/mcL 4.80 - [...] - 160 mcg/dL - December 30, 2024 Hemoglobin x 3 27.3 % 42.0 - 54.0 % Low December HGB 9.2 g/dL 14.0 - 18.0 g/dL Low January 13, 2025 Hemoglobin x 3 27.6 % 42.0 - 54.0 % Low December HGB 9.7 g/dL 14.0 - 18.0 g/dL Low January Hemoglobin x 3 29.1 % 42.0 - 54.0 % Low January 20, 2025 HGB 9.7 g/dL 14.0 - 18.0 g/dL Low January 152024 Hemoglobin x 3 29.1 % 42.0 - 54.0 % Low January 27, 2025 CASSI 2.8 % 0.0 - 4.0 % - February 03 25 Basophils 0.8 % 0.0 - 1.5 % - February 03 25 Eosinophil 7.2 % 0.0 - 7.0 % High February 03 25 Monocytes 6.6 % 3.0 - 10.0 % - February 03 025 Lymphocytes 19.5 % 19.0 - 48.0 % - February 03, 2025 Neutrophils 63.0 % 40.0 - 75.0 % - February 03, 2025 TIBC (Calc) 173 mcg/dL 185 - 515 mcg/dL Low February 03, 2025 Transferrin Sat. (Calc) 28 % 20 - 55 % - February 03, 2025 Iron 49 mcg/dL 45 - 160 mcg/dL - January UIBC/TIBC 124 mcg/dL 155 - 355 mcg/dL Low January 162024 Platelets 192 1000/mcL 130 - 400 1000/mcL - 2024 Hemoglobin x 3 29.4 % 42.0 - 54.0 % Low February 03, 2025 HGB 9.8 g/dL 14.0 - 18.0 g/dL Low January 162024 RDW 17.8 % 11.5 - 14.5 % High February 03, 2025 MCHC 30.3 g/dL 30.0 - 36.0 g/dL - January 162024 MCH 29.3 pg 27.0 - 31.0 pg - February 03, 2025 HCT 32.4 % 42.0 - 52.0 % Low February 03, 2025 RBC 3.35 mill/mcL 4.70 - 6.10 mill/mcL Low February 03, 2025 WBC (No Diff) 4.86 1000/mcL 4.80 - 10.80 1000/mcL - February 03, 2025 Metabolic/Renal Result Type Result Value Relevant Referen ce Range Interpretation Date Vitamin B12 440 pg/mL 211 - [...] - 5.1 mEq/L - January 11, 2025 Potassium 3.9 mEq/L 3.5 - 5.1 mEq/L - January BUN 52 mg/dL 6 - 19 mg/dL High January 20, 025 URR, Calc 73 % 65 - 80 % - January 20 BUN, Post 14 mg/dL 6 - 19 mg/dL - January 20, 025 Potassium 4.6 mEq/L 3.5 - 5.1 mEq/L - January Potassium 4.2 mEq/L 3.5 - 5.1 mEq/L - January Chloride 105 mEq/L 96 - 108 mEq/L - February 03, 2025 Bicarbonate 25 mEq/L 22 - 29 mEq/L - February 03, 2025 Sodium 140 mEq/L 136 - 145 mEq/L - January Potassium 3.9 mEq/L 3.5 - 5.1 mEq/L - January Creatinine, Serum 5.64 mg/dL 0.60 - 1.30 mg/dL High February 03, 2025 Potassium 4.8 mEq/L 3.5 - 5.1 mEq/L - January HD Adequacy Result Type Result Value Relevant Referen ce Range Interpretation Date spKt/V Gotch 1.31 No Reference Ran ge Provided - December 16, 2024 wstdKt/V without residual 2.2 No Reference Range Provided - December 16, 2024 eKt/V ([place]all) 1.11 No Reference Range Provided - December 16, 2024 spKt/V (Daugirdas II) 1.30 No Reference Range Provided - December 16, 2024 wstdKt/V, [...] 25, 2024 spKt/V (Daugirdas II) 1.48 No Reference Range Provided - December 25, 2024 wstdKt/V 2.4 No Reference Ran ge Provided - December 25, 2024 wstdKt/V, residual 0.0 No Reference Range Provided - December 25, 2024 wstdKt/V without residual 2.4 No Reference Range Provided - December 25, 2024 Krt/V 0.00 No Reference Ran ge Provided - December 25, 2024 wstdKt/V, residual 0.0 No Reference Range Provided - January 20, 2025 wstdKt/V 2.5 No Reference Ran ge Provided - January 20, 2025 wstdKt/V without residual 2.5 No Reference Range Provided - January 20, 2025 spKt/V (Daugirdas II) 1.58 No Reference Range Provided - January 20, 2025 eKt/V ([place]) 1.38 No Reference Range Provided - January 20, 2025 spKt/V Gotch 1.62 No Reference Ran ge Provided - January 20, 2025 Krt/V 0.00 No Reference Ran ge Provided - January 20, 2025 Bone/Mineral Result Type Result Value Relevant Referen [...] Product 36 0 - 54 - December 30 Phosphorus 4.3 mg/dL 2.6 - 4.5 mg/dL - December 30, 2024 Calcium, Total 8.3 mg/dL 8.4 - 10.2 mg/dL Low December 30, 2024 Calcium, Total 7.9 mg/dL 8.4 - 10.2 mg/dL Low Janu 2024 Phosphorus 4.7 mg/dL 2.6 - 4.5 mg/dL High January Ca x P Product 37 0 - 54 - February 03, 2025 Corrected Ca x P Product 42 0 - 54 - February 03, 2025 Liver/Nutrition Result Type Result Value Relevant Reference Range Interpre tation Date Total Protein 5.0 g/dL 6.0 - 8.5 g/dL Low November A/G Ratio 1.0 1.0 - 2.0 - November 27, 2024 Globulin (Calc) 2.5 g/dL 2.0 - 4.0 g/dL - November 27, 2024 Albumin (BCG) 2.5 g/dL 3.5 - 5.2 g/dL Low November eNPCR 0.69 No Reference Ran ge Provided - December 16, 2024 eNPCR 0.69 No Reference Ran ge Provided - December 25, 2024 A/G Ratio 0.8 1.0 - 2.0 Low December 30, 2024 Globulin (Calc) 2.9 g/dL 2.0 - 4.0 g/dL - December 30, 2024 Albumin (BCG) 2.4 g/dL 3.5 - 5.2 g/dL Low December Total Protein 5.3 g/dL 6.0 - 8.5 g/dL Low December eNPCR 0.91 No Reference Ran ge Provided - January 20, 2025 Albumin (BCG) 2.7 g/dL 3.5 - 5.2 g/dL Low February 03, 2025 Total Protein 5.3 g/dL 6.0 - 8.5 g/dL Low February 03, 2025 Globulin (Calc) 2.6 g/dL 2.0 - 4.0 g/dL - 2024 A/G Ratio 1.0 1.0 - 2.0 - February 03 Trace Elements Result Type Result Value Relevant Reference Range Interpre tation Date Aluminum < 5 mcg/L 0 - 10 mcg/L - November 27 Aluminum < 5 mcg/L 0 - 10 mcg/L - December 30 Infectious Diseases Result Type Result Value Relevant Referen ce Range Interpretation Date Hep B core Ab Total (anti-HBc) negative No Reference Range Provided Normal November 26, 2024 Hep B Surface Ab (anti-HBs) < 10 mIU/mL No Reference Range Provided - December 30, 2024 Hep B Surface Ag (HBsAg) Negative No Reference Range Provided - February 03, 2025 DIALYSIS PRESCRIPTION Conventional Hemodialysis Data Element Value Order Date/Time February 05, 2025 Frequency 3X Week Treatment Days MonWedFri Dialyzer 180NRe Optiflux Treatment Time (Total Minutes) 240 min Blood Flow Rate (mL/min) 400 mL/min Dialysate Flow Rate Manual 600 Estimated Dry Weight 80 kg Dialysate Concentrate 3.0 K, 2.50 Ca, 1. 0 Mg, 100 Dextrose ([id number]) Sodium (mEq/L) 138 mEq/L Bicarb Machine Setting [...] (mL/min) Dialysate Dialyzer Dialysis Access Meds Admin 2024 Weight 83.70 kg Weight 79.70 kg 04:02:00 400 2.0 K, 2.50 Ca, 1.0 Mg, 100 Dextrose ([id number]) 180nre Optifl ux Blood Pressure-sitting 195/114 mmHg Blood Pressure-sit ting 128/78 mmHg Blood Pressure-standing 172/100 mmHg Blood Pressure-st anding 94/69 mmHg Heart Rate 97 beats per minute Heart Rate 90 beats per minute Respiratory Rate 18 breaths per minute Respiratory Rate 18 breaths per minute Temperature 98.1 deg. F Temperature 98.2 deg. F February 05, 2025 Weight 84.50 kg Weight 80.00 kg 03:59:00 400 2.0 K, 2.50 Ca, 1.0 Mg, 100 Dextrose ([id number]) 180nre Optiflux Hemodialysis-CV Catheter-Tunneled, Chest, Right Jugular Heparin Sodium (Porcine) 1,000 Units/mL Catheter Lock Arterial; 1800units,Arterial Red Port Heparin Sodium (Porcine) 1,000 Units/mL Catheter Lock Venous; 1800units,Venous Blue [place] Vitamin D (Calcitriol) Oral; 0.25mcg,Oral Blood Pressure-sitting 211/117 mmHg Blood Pressure-sit ting 173/99 mmHg Blood Pressure-standing 181/114 mmHg Blood Pressure-st anding 139/91 mmHg Heart Rate 89 beats per minute Heart Rate 91 beats per minute Respiratory Rate 18 breaths per minute Respiratory Rate 18 breaths per minute Temperature 98.0 deg. F Temperature 97.8 deg. F February 08, 2025 Weight 83.70 kg Weight 80.60 kg 04:04:00 400 3.0 K, 2.50 Ca, 1.0 Mg, 100 Dextrose ([id number]) 180nre Optiflux Hemodialysis-CV Catheter-Tunneled, Chest, Right Jugular Heparin Sodium (Porcine) 1,000 Units/mL Catheter Lock Arterial; 1800units,Arterial Red [place] Heparin Sodium (Porcine) 1,000 Units/mL Catheter Lock Venous; 1800units,Venous Blue [place] Vitamin D (Calcitriol) Oral; 0.25mcg,Oral Blood Pressure-sitting 172/99 mmHg Blood Pressure-sit ting 117/73 mmHg Blood Pressure-standing 157/98 mmHg Blood Pressure-st anding 100/64 mmHg Heart Rate 91 beats per minute Heart Rate 99 beats per minute Respiratory Rate 18 breaths per minute Respiratory Rate 18 breaths per minute Temperature 97.2 deg. F Temperature 97.8 deg. F
--- OUTSIDE RECORDS SUMMARY | 2025-02-09 14:45 | XMS_ITS | Encounter Summary ---
Author Organization [facility] Address [address] [place] [address] Care Team Providers Care Machine Technician Name Role Phone Chris Boucher MD Primary Care Provider [phone] Reason for Visit * Reason Comments home health cert Encounter Details Date Type Department Care Team (Late st Contact Info) Description 12/22/2024 Billing Patient Not Present Adult Medicine [facility] [address] [place] [address] Chris Boucher MD [address] [place] [address] Social History Tobacco Use Types Packs/Day Years [...] Record ed Within the last 3 months, светлана galarza many times did you visit the emergency [...] money to get more. Sometimes true 12/03/2024 Employment and Income Answer Date Recor ded [...] on file documented as of this encounter Plan of Treatment Upcoming Encounters Date Type Department Care Team (Late st Contact Info) Description 02/18/2025 3:30 PM EDT Appointment Radiology Department - [address] [phone] 02/18/2025 3:50 PM EDT Appointment Radiology Department - [address] [phone] 03/01/2025 11:00 AM EDT Office Visit Adult Medicine [address] [phone] Chris Boucher MD [address] [place] [address] 03/10/2025 9:15 AM EDT Consult Orthopedic Surgery - [address] [phone] Agustin Alvares, DPM [address] [place] [address] 03/30/2025 10:00 AM EDT Ancillary Procedure [facility] [address] [place] [phone] documented as of this encounter Visit Diagnoses Not on filedocumented in this encounter Additional Health Concerns Assessment Noted Time PHQ-9 Depression Total Score: 10 12/14/ 025 8:34 PM EDT documented as of this encounter Care Teams Machine Technician Relationship Specialty Start Date End Date Chris Boucher MD [address] [place] [address] [phone] PCP - General Internal Medicine 09/06/14 documented as of this encounter
--- OUTSIDE RECORDS SUMMARY | 2025-02-09 14:45 | XMS_ITS ---
Author Organization [address] Address [address] [place] [phone] Phone Care Team Providers Care Paint Maker Name Role Phone Chris Boucher MD Primary Care Provider [phone] Community Health Worker Program Status:Ongoing (Active) Start date:11/24/2024 Enrollment date:12/23/2024 Enrollment reason:Referred from clinic Related service episodes:[facility] - Social Service (Active) Overview Community Health Worker Program Case Team Name Relationship Phone Geneva Leonard Community Health Worker(Meshai ble Staff) Continued Care and Services Coordination
== END 2025-02-09 14:59 | disposition home or self-care (01) ==
LOC: HO.HCS 13:49
PROVIDERS: PCP Internal Medicine
DX: R09.89 Other specified symptoms and signs involving the circulatory and respiratory systems (principal); I50.9 Heart failure, unspecified; E11.22 Type 2 diabetes mellitus with diabetic chronic kidney disease; N18.5 Chronic kidney disease, stage 5
CPT/HCPCS: 99214

== ENCOUNTER → 2025-02-09 13:48 | Outpatient (BNVA) | payer OTHER, SELFPAY | PROVIDERS: PCP Internal Medicine | DX: R09.89 Other specified symptoms and signs involving the circulatory and respiratory systems (principal); I50.9 Heart failure, unspecified; E11.22 Type 2 diabetes mellitus with diabetic chronic kidney disease; N18.5 Chronic kidney disease, stage 5; Z99.89 Dependence on other enabling machines and devices; G47.33 Obstructive sleep apnea (adult) (pediatric) | CPT/HCPCS: 99212 ==

== ENCOUNTER → 2025-02-15 23:59 | Outpatient (BNV) | payer OTHER, SELFPAY | PROVIDERS: PCP Internal Medicine; Visit Provider Internal Medicine Nephrology | DX: N18.6 End stage renal disease (principal) | CPT/HCPCS: 90961 ==

== ENCOUNTER → 2025-03-17 23:59 | Outpatient (BNV) | payer OTHER, SELFPAY | PROVIDERS: PCP Internal Medicine; Visit Provider Internal Medicine Nephrology | DX: N18.6 End stage renal disease (principal) | CPT/HCPCS: 90961 ==

== ENCOUNTER → 2025-04-17 23:59 | Outpatient (BNV) | payer OTHER, SELFPAY | PROVIDERS: PCP Internal Medicine; Visit Provider Internal Medicine Nephrology | DX: N18.6 End stage renal disease (principal) | CPT/HCPCS: 90961 ==

== ENCOUNTER → 2025-05-17 23:59 | Outpatient (BNV) | payer OTHER, SELFPAY | PROVIDERS: PCP Internal Medicine; Visit Provider Internal Medicine Nephrology | DX: N18.6 End stage renal disease (principal) | CPT/HCPCS: 90961 ==

== ENCOUNTER 2025-05-25 12:49 | Outpatient (AMB) | payer OTHER, SELFPAY ==
[2025-05-25 13:21] VITALS: BP 142/70; PULSE 72; BMI 29.8
--- NOTE | 2025-05-25 13:21 | A.OFFVIS_ITS ---
Vital Signs 05/25/25 13:21 Height 5 ft 8 in Weight 196 lb 3.382 oz BMI 29.8 BP 142/70 H Blood Pressure Location Lt brachial Position Sitting Pulse 72 Pulse Source Pulse Oximeter Intake Visit Reasons: 3 mth fu Lapidary Apprentice Required: No Accompanied by: Spouse Allergies No Known Allergies Allergy (Verified 05/25/25 13:24) Medication List - Last Reconciled 05/25/25 by Chris Espinosa NP atorvastatin 80 mg PO BEDTIME B complex-vitamin C-folic acid 0.8 mg (Oriana-Marbin) 1 tab PO DAILY blood pressure monitor (Blood Pressure Kit) As directed calcium carbonate (Antacid Calcium) 215 mg PO BID PRN clonidine HCl 0.2 mg PO BID losartan 50 mg PO BID midodrine mg PO PRN sertraline 100 mg PO DAILY sevelamer carbonate 800 mg PO TID trazodone 25 mg PO DAILY walker As directed zolpidem 10 mg PO BEDTIME HPI Comments Details: This is a 60-year-old male patient coming in for a follow-up visit, accompanied by his ex-. Patient with a history of hypertension, diabetes, hypertensive cardiomyopathy, hyperlipidemia, chronic kidney disease on dialysis, and sleep apnea on CPAP therapy. Patient reports feeling well overall without any cardiac symptoms of exertional chest pain, shortness of breath, palpitations, dizziness, orthopnea, PND, leg edema, presyncope or syncope. However, patient's blood pressures has been elevated at home. Patient's blood pressures has been very labile and difficult to control. Patient has not had upcoming renal ultrasound next week. Patient states that his systolic blood pressure has been averaging in the 150s to 160s. Patient is on midodrine for low blood pressures as needed as he had issues in the past with low blood pressures. Patient is unaware if he is taking his midodrine daily or on an as-needed basis. Manager Money also states that patient was seen by primary care almost a month ago and that he was started on new medications for elevated blood pressures however they are not aware which ones. Upon checking with the pharmacy, patient's med list his completely different. [facility] Medical History Hypertension Anemia of chronic disease Chronic kidney disease Congestive heart failure Chronic HFrEF (heart failure with reduced ejection fraction) Anemia RACHEL (obstructive sleep apnea) Heart failure Hypercholesterolemia Diabetes Family History Mother Kidney disease Hypertension Father Hypertension Social History Household Members: None Household Members Other:: grandson Housing: House Do you presently have visiting nurse or other home services: Yes (house caesar coleman assistance.) Alcohol intake: never Patient Tobacco Use Status: Former Tobacco user Tobacco use type: Cigarette Second Hand Smoke Exposure: No Advance Directives Date on File: 08/08/23 service: No Review of Systems Const Denies daytime sleepiness, Denies difficulty sleeping, Denies snoring, Denies stops breathing during sleep and Denies weakness Card Denies chest pain, Denies rapid heart rate, Denies irregular heart rhythm, Denies claudication, Denies leg edema, Denies lightheadedness, Denies palpitations, Denies dyspnea, Denies dyspnea on exertion, Denies orthopnea, Denies paroxysmal nocturnal dyspnea and Denies slow heart rate Resp Denies cough, Denies dyspnea, Denies dyspnea on exertion and Denies snoring GI Reports no additional complaints, Denies hematochezia, Denies change in stool character and Denies dyspepsia Musc Denies abnormal gait, Denies muscle weakness and Denies numbness Neuro Denies abnormal gait, Denies numbness and Denies weakness Endo Denies palpitations Physical Exam Vital Signs: Last Vital Signs Pulse 72 05/25/25 13:21 BP 142/70 H 05/25/25 13:21 BMI result Body Mass Index 29.8 Const General: cooperative, comfortable, no acute distress and tired appearing Orientation/consciousness: patient oriented x3 HEENT Head: Yes normal to inspection Neck Neck: Yes normal visual inspection, Yes trachea midline and Yes supple Chest Chest palpation & inspection: normal inspection of the chest Resp Effort & Inspection: normal respiratory effort Auscultation: clear to auscultation bilaterally, no crackles, no rales, no rhonchi and no wheezes Cardio Jugular venous distension: no JVD Palpation: normal PMI Rate: regular rate Rhythm: regular rhythm Heart sounds: S1 normal heart sound present, S2 normal heart sound present, no click, no gallops, no murmurs and no rubs Peripheral pulses: Peripheral pulses 2+ throughout GI Inspection: Yes normal to inspection Palpation (GI): Soft to palpation Auscultation: normal bowel sounds Skin General skin exam: no rashes or lesions noted Neuro General: patient oriented x3 Extrem General: Yes normal to inspection, No no pedal edema and No calf tenderness Psych Appearance: grossly normal Mental Status: mental status grossly normal Speech and movement: Normal speech and movement present Assessment & Plan Assessment & Plan (1) Labile blood pressure: Code(s): R09.89 - Other specified symptoms and signs involving the circulatory and respiratory systems Category: Medical Plan: Back in December, patient had very low blood pressures and all his antihypertensive medications were discontinued except for losartan. Biofuels Engineering Manager had advised patient to take his midodrine in the morning and losartan in the afternoon. At his last visit back in January, patient was noted to have elevated blood pressures and was noted that he was not on losartan and therefore we restarted him back on this. Recently check writer salesperson states that patient has been having elevated blood pressures averaging in the 150s to 160s. Patient was seen by PCP about a month ago for which he was started on new medications. However patient and the check writer salesperson is not short of which medications. We tried to contact the pharmacy but the pharmacy has a complete different medication list. We will request an updated med list from primary care office to check what medications patient is currently on. Have advised to completely stop taking midodrine as they are not sure if he is taking this daily as well. Patient to continue with losartan and clonidine therapy. Depending on what medications primary care started, we will plan to optimize his regimen. Advised on low-salt diet. Advised to continue monitoring blood pressures at home with a goal less than 130/80. Clinically stable without any symptoms of dizziness or headache. Upcoming renal ultrasound next week. (2) Heart failure: Code(s): I50.9 - Heart failure, unspecified Category: Medical Plan: 11/12/2024-echo study showed mildly reduced LV function between 45-50% with moderate LVH with impaired relaxation filling pattern, moderately dilated left atrium, and trivial pericardial effusion. Clinically euvolemic. Signs and symptoms of heart failure reviewed with the patient. Advised on low-salt diet, daily weight monitoring, and compression socks/elevating legs. (3) CKD stage 5 due to type 2 diabetes mellitus: Code(s): E11.22 - Type 2 diabetes mellitus with diabetic chronic kidney disease; N18.5 - Chronic kidney disease, stage 5 Category: Medical Plan: On dialysis 3 times a week, followed by Nephrology. (4) Diabetes: Code(s): E11.9 - Type 2 diabetes mellitus without complications Category: Medical Plan: Patient states that the blood pressures has been stable and all his diabetes medications has been stopped now. Patient's A1c goal should be less than 7%. Advised patient to continue with heart healthy diet, med compliance, and management of vascular risk factors. Patient will return for a blood pressure check with the nurse. We will plan to follow up after this. In the interim, patient will call the office with any concerns or change in symptoms. This note was generated using voice recognition software. While every effort has been made to ensure accuracy and proper stripping and booking machine operator, there may be occasional errors that could affect the content or meaning of the described symptoms. Coding Level of Care Code Est Pt Level 4 (96380) Add On Problem Visit Only Diagnoses Labile blood pressure R09.89 Heart failure I50.9 CKD stage 5 due to type 2 diabetes mellitus E11.22; N18.5 Diabetes E11.9 Time Spent (min) 32 Comment Time spent in reviewing the chart, test results, assessment, counseling and documentation.
== END 2025-05-25 14:11 | disposition home or self-care (01) ==
LOC: HO.HCS 12:49
PROVIDERS: PCP Internal Medicine
DX: R09.89 Other specified symptoms and signs involving the circulatory and respiratory systems (principal); I50.9 Heart failure, unspecified; E11.22 Type 2 diabetes mellitus with diabetic chronic kidney disease; N18.5 Chronic kidney disease, stage 5
CPT/HCPCS: 99214

== ENCOUNTER → 2025-05-25 12:49 | Outpatient (BNVA) | payer OTHER, SELFPAY | PROVIDERS: PCP Internal Medicine | DX: I50.9 Heart failure, unspecified (principal); E11.22 Type 2 diabetes mellitus with diabetic chronic kidney disease; N18.5 Chronic kidney disease, stage 5; R09.89 Other specified symptoms and signs involving the circulatory and respiratory systems | CPT/HCPCS: 99212 ==

== ENCOUNTER 2025-06-01 08:02 | Outpatient (REF) | payer OTHER, SELFPAY ==
--- NOTE | ~2025-06-01 | US_ITS ---
CLINICAL HISTORY: I95.9 - Hypotension, unspecified Renal duplex ultrasound Comparison: US/SR - US RENAL DOPPLER - 11/12/24 14:35 EDT Technique: Real time duplex ultrasound imaging was performed by the sales manager [place]. Multiple inbound customer service representative static images were saved for review. Findings: Aorta: Normal waveform, 105 cm/s. Right kidney: Normal size and echotexture, 9.4 cm length. No cortical thinning. 2 new hypoechoic avascular cortical lesion with mildly increased through transmission are visualized, 3.8 x 2.9 x 3.2 cm in the lower pole and 3.2 x 3.0 x 2.6 cm in the lower pole. No calculus or hydronephrosis. Main renal artery peak systolic velocities: Proximal: 41.5 cm/s Mid: 91.2 cm/s Distal: 83.4 cm/s Segmental resistive index: 0.72-0.79 Left kidney: Normal size and echotexture, 10.9 cm length. No cortical thinning. No calculus, focal lesion or hydronephrosis. Main renal artery peak systolic velocities: Proximal: 48.7 cm/s Mid: 60.0 cm/s Distal: 71.3 cm/s Segmental resistive index: 0.69-0.8 Impression: 1. New right renal hypoechoic lesions, indeterminate, per ultrasound worksheet, patient is status post biopsy with known hematoma, so perhaps these 2 lesions represent the known hematomas, no relevant comparison exam is available, please correlate clinically, renal MRI or CT can better evaluate. 2. Renal artery velocities are within normal range, mildly elevated resistive indices bilaterally. This document has been electronically signed by: Alison Mc MD on 06/01/2025 12:19:59
--- OUTSIDE RECORDS SUMMARY | 2025-06-01 08:11 | XMS_ITS | Encounter Summary ---
Author Organization [facility] Address [address] [place] [address] Care Team Providers Care Girl Friday Name Role Phone Chris Boucher MD Primary Care Provider [phone] Encounter Details Date Type Department Care Team (Late st Contact Info) Description 11/24/2024 Referral Triage [facility] [address] [phone] Jagdeep Hilario Social History Tobacco Use Types [...] Date Recorded What is your living situation? Unrecognized valu e 11/24/2024 Sex and Gender Information Value Date Recorded Sex Assigned at Male 04/30/2025 5:15 PM EST Legal Sex Male 4:53 AM EST Gender Identity Male 04/30/2025 5:15 PM EST Sexual Orientation Not on file documented as [...] + Jagdeep Hilario Community Health Worker (CHW) Airline Mechanic/Regional documented in this encounter Plan of Treatment Upcoming Encounters Date Type Department Care Team (Late st Contact Info) Description 06/01/2025 11:00 AM EST Office Visit Adult Medicine [facility] [address] [place] [phone] Kennedi Herman NP [address] [place], [place] 07/15/2025 9:30 AM EST Appointment [facility] [address] [place] [phone] Flip Potts MD [address] [phone] documented as of this encounter Visit Diagnoses Not on filedocumented in this encounter Additional Health Concerns Infection Onset Date Last Indicated Resolved Time Respiratory Rule-Out 12/02/2024 12/02/2024 025 10:55 PM EDT COVID-19 Rule-Out 12/02/2024 12/02/2024 12/02/2024 10:55 PM EDT documented as of this encounter Care Teams Girl Friday Relationship Specialty Start Date End Date Chris Boucher MD [address] [place] [phone] PCP - General Internal Medicine 09/06/14 documented as of this encounter
--- OUTSIDE RECORDS SUMMARY | 2025-06-01 08:11 | XMS_ITS | Encounter Summary ---
Author Organization [facility] Address [address] [place] [address] Care Team Providers Care Transit Survey Worker Name Role Phone Chris Bouchre MD Primary Care Provider [phone] Reason for Visit * Reason Comments home health cert Encounter Details Date Type Department Care Team (Late st Contact Info) Description 12/22/2024 Billing Patient Not Present Adult Medicine [facility] [address] [place] [address] Chris Boucher MD [address] [place], [place] Social History Tobacco Use Types Packs/Day Years [...] your living situation? Unrecognized valu e 11/24/2024 Interpersonal Safety Answer Date Record ed Physical Abuse Unrecognized value 12/01/2024 Verbal Abuse Unrecognized value 12/01/2024 Sex and Gender Information Value Date Recorded Sex Assigned at Male 04/30/2025 5:15 PM EST Legal Sex Male 4:53 AM EST Gender Identity Male 04/30/2025 5:15 PM EST Sexual Orientation Not on file documented as of this encounter Plan of Treatment Upcoming Encounters Date Type Department Care Team (Late st Contact Info) Description 06/01/2025 11:00 AM EST Office Visit Adult Medicine [facility] [address] [place] [address] Kennedi Herman EDUCATIONAL GUIDANCE COUNSELOR [address] [place], [place] 07/15/2025 9:30 AM EST Appointment [facility] Endoscopy [address] [place] [phone] Flip Potts MD [address] [facility] [address] [place] [address] documented as of this encounter Visit Diagnoses Not on filedocumented in this encounter Additional Health Concerns Assessment Noted Time PHQ-9 Depression Total Score: 10 025 8:34 PM EDT documented as of this encounter Care Teams Transit Survey Worker Relationship Specialty Start Date End Date Chris Boucher MD [address] [place] [phone] PCP - General Internal Medicine 09/06/14 documented as of this encounter
--- OUTSIDE RECORDS SUMMARY | 2025-06-01 08:11 | XMS_ITS ---
Author Organization [address] Address [address] [place] [phone] Phone Care Team Providers Care Roller Skates Assembler Name Role Phone Chris Boucher MD Primary Care Provider [phone] [facility] - Social Service Status:Closed (Closed) Start date:12/23/2024 Enrollment date:12/23/2024 End date:05/27/2025 Close reason:[facility] Complete Related program episode:Community Health Worker Program (Closed) Overview Social Service service of Community Health Worker Program Continued Care and Services Coordination
--- OUTSIDE RECORDS SUMMARY | 2025-06-01 08:11 | XMS_ITS ---
Author Organization [address] Address [address] [place] [phone] Phone Care Team Providers Care Boat Repairer Name Role Phone Chris Boucher MD Primary Care Provider [phone] Community Health Worker Program Status:Closed (Closed) Start date:11/24/2024 Enrollment date:12/23/2024 Enrollment reason:Referred from clinic End date:05/27/2025 Close reason:Completed program Related service episodes:[facility] - Social Service (Closed) Overview Community Health Worker Program Continued Care and Services Coordination
--- OUTSIDE RECORDS SUMMARY | 2025-06-01 08:11 | XMS_ITS | Clinical Summary ---
[facility] Address [address] [place] [address] Phone Care Team Providers Care Manager Outreach Name Role Phone Chris Boucher MD Primary Care Provider [phone] Allergies No known active allergies Medications loratadine (CLARITIN) 10 mg tablet TAKE 1 TABLET BY MOUTH EVERY DAY 90 tablet 04/22/20 24 Active insulin glargine (Lantus Solostar U-100 Insulin) 100 unit/mL (3 mL) injection pen 03/17/20 24 Active sulfaSALAzine (AZULFIDINE) 500 mg tablet 12/02/19 24 Active leflunomide (ARAVA) 20 mg tablet 12/02/19 24 Active pen needle, diabetic (PEN NEEDLE MISC) Use once daily with insulin pen 01/06/20 24 Active carvediloL (COREG) 25 mg tablet Take 1 tablet (25 mg total) by mouth 2 (two) times a day. 08/07/19 24 Active ipratropium-alb uteroL (DUONEB) 0.5-2.5 mg/3 mL nebulizer solution Inhale 3 mL into the lungs 4 times daily. 08/07/19 23 Active FREESTYLE LANCETS MISC Use to test bloodsugar twice daily 07/04/19 21 Active blood-glucose meter kit 1 Each by Does not apply route as needed for Other for up to 360 days. 07/04/19 21 Active pen needle, diabetic 32 gauge x 5/32 needle 1 Device by Does not apply route daily. 02/19/20 19 Active rosuvastatin (CRESTOR) 40 mg tablet Take 1 tablet (40 mg total) by mouth 1 (one) time each day. 30 each 5 05/29/20 24 Active Additional Information Patient not taking.Reported on 12/01/2024 Farxiga 5 mg tablet TAKE 1 TABLET BY MOUTH EVERY DAY 90 tablet 2 07/28/19 Active calcitrioL (ROCALTROL) 0.25 mcg capsule Take 1 capsule (0.25 mcg total) by mouth 1 (one) time each day. 10/05/19 25 Active buPROPion XL (WELLBUTRIN XL) 150 mg 24 hr tablet Take 1 tablet (150 mg total) by mouth 1 (one) time each day. 09/30/19 25 Active atorvastatin (LIPITOR) 80 mg tablet Take [...] 3 (three) times a day with meals. 10/05/19 25 Active sodium bicarbonate 650 mg tablet Take 1 tablet (650 mg total) by mouth 2 (two) times a day. 10/05/19 25 Active sodium polystyrene (KAYEXALATE) powder Take 30 g by mouth 1 (one) time each day. 11/13/19 25 Active zolpidem (AMBIEN) 10 mg tablet Take 1 tablet (10 mg total) by mouth at bedtime. 06/15/20 24 Active bumetanide (BUMEX) 2 mg tablet Take 1 tablet (2 mg total) by mouth 2 (two) times a day. 11/22/19 25 Active traZODone (DESYREL) 50 mg tablet Take 1 tablet (50 mg total) by mouth at bedtime. 08/21/19 25 Active isosorbide dinitrate (ISORDIL) 20 mg tablet Take 1 tablet (20 mg total) by mouth 2 (two) times a day. 11/27/19 25 Active cloNIDine (VRDTNTFQ-DIG-1 ) 0.3 mg/24 hrIndications:E ssential hypertension Place 2 patches on the skin 1 (one) time per week. 8 each 12/12/19 Active Additional Information Patient not taking.Reported on 12/21/2024 losartan (COZAAR) 100 mg tablet Take 1 tablet (100 mg total) by mouth 1 (one) time each day. 30 each 12/07/19 Active NIFEdipine XL (PROCARDIA XL) 60 mg 24 hr tablet Take 1 tablet (60 mg total) by mouth 1 (one) time each day before breakfast. Do not crush, chew, or split. 30 each 12/07/19 Active Additional Information Patient not taking.Reported on 12/21/2024 NIFEdipine (ADALAT CC) 30 mg 24 hr tablet Take 1 tablet (30 mg total) by mouth 1 (one) time each day before breakfast. Do not crush, chew, or split. Takes 2 tablets daily Active acetaminophen (TYLENOL 8 HOUR) 650 mg [...] 1 (one) time each day. Active lisinopril (PRINIVIL,ZESTR IL) 40 mg tablet Take 1 tablet (40 mg total) by mouth 1 (one) time each day. Active glucose blood test strip Use as instructed 100 each 1 12/22/19 25 Active sertraline (ZOLOFT) 100 mg tablet TAKE 1 TABLET BY MOUTH EVERY DAY 90 tablet 1 02/18/20 25 Active FreeStyle Lite Meter monitoring kit USE TO TEST BLOOD GLUCOSE ONCE DAILY 1 each 03/04/20 25 Active blood sugar diagnostic (FreeStyle Lite Strips) test strip USE TO TEST BLOOD GLUCOSE ONCE DAILY 100 each 1 03/04/20 25 Active FreeStyle Lancets 28 gauge lancets USE TO TEST BLOOD GLUCOSE ONCE DAILY 100 each 03/04/20 25 Active bisacodyL (DULCOLAX) 5 mg EC tablet Take 2 tablets by mouth right before beginning bowel prep. See instructions provided by the office 2 tablet 11/06/20 25 Active polyethylene glycol (Golytely) 236-22.74-6.74 -5.86 gram solution Take 4L by mouth once for one dose. May substitue any PEG. Starting at 2PM the day before your procedure drink 1 8oz glasses at your own pace until you complete half of the gallon. Finish 2nd half of the gallon at 8PM. 4000 mL 04/22/20 25 Active hydrALAZINE (APRESOLINE) 25 mg tablet Take 2 tablets (50 mg total) by mouth 2 (two) times a day. 180 tablet 1 04/29/20 25 Active cholecalciferol (VITAMIN D-3) 50 mcg (2,000 unit) tablet Take 1 tablet (2,000 Units total) by mouth 1 (one) time each day. 90 tablet 1 05/08/20 25 Active Cardura 2 mg tablet TAKE 1 TABLET BY MOUTH EVERY DAY AT BEDTIME *ON BACK ORDER* 90 tablet 1 05/27/20 25 Active doxazosin (CARDURA) 2 mg tablet TAKE 1 TABLET BY MOUTH AT BEDTIME. 90 tablet 1 11/21/19 25 2024 Discontinued doxazosin (CARDURA) 2 mg tablet TAKE 1 TABLET BY MOUTH AT BEDTIME. 90 tablet 1 05/22/20 25 2024 Discontinued Active Problems Problem Noted Date Diagnosed Date Acute anemia 12/01/2024 Anemia due to stage 4 chronic kidney disease CHF (congestive heart failure) 08/23/2023 COVID-19 09/28/2022 Low testosterone 03/16/2019 Vitamin deficiency 03/16/2019 Obstructive sleep apnea 06/21/2016 Essential hypertension 06/06/2015 DDD (degenerative disc disease), cervical 2014 Insomnia 02/05/2014 Alcohol dependence 08/21/2012 Hyperlipidemia 08/09/2011 Microalbuminuria 08/09/2011 Type II diabetes mellitus with nephropathy 08/09 Asthma 07/18/2011 Major depression 07/18/2011 Obesity (BMI 30.0-34.9) 07/18/2011 Encounters Date Type Department Care Team Description 05/27/2025 Telephone [facility] [address] [place] [address] Geneva Leonard 05/25/2025 Telephone Adult Medicine [address] [phone] Chris Boucher MD 05/08/2025 Results Follow-Up [address] [phone] Neo Cabrera PA 05/06/2025 7:33 AM EST Anesthesia Event [facility] Endoscopy [address] [place] [address] Luann Nugent CRNA 05/04/2025 8:55 AM EST Lab Draw Station [address] Hyperlipidemia, unspecified hyperlipidemia type; Vitamin deficiency 04/29/2025 11:30 AM EST Office Visit [address] [phone] Noe Cabrera PA Hyperlipidemia, unspecified hyperlipidemia type (Primary Dx); Vitamin deficiency; Essential hypertension; Congestive heart failure, unspecified HF chronicity, unspecified heart failure type (CMS/HCC V24, CMS/HCC V28); Type II diabetes mellitus with nephropathy (CMS/HCC V24, CMS/HCC V28) 04/13/2025 2:00 PM EDT Office Visit [address] [phone] Kennedi Herman NP Type II diabetes mellitus with nephropathy (CMS/HCC V24, CMS/HCC V28) (Primary Dx); Essential hypertension; ESRD on hemodialysis (CMS/HCC V24, CMS/HCC V28); Congestive heart failure, unspecified HF chronicity, unspecified heart failure type (CMS/HCC V24, CMS/HCC V28); Pure hypercholesterolemia 04/13/2025 Results Follow-Up [address] [phone] Kennedi Herman NP 04/09/2025 Billing Patient Not Present [address] [phone] Chris Boucher MD 04/07/2025 Telephone Adult Medicine [address] [phone] Chris Boucher MD 03/30/2025 10:00 AM EDT Ancillary Procedure [facility] [address] [place] [address] Fever, unspecified fever cause from Last 3 Months Immunizations Immunization Administration Dates Next Due Influenza Quadravalent, MDCK [...] ial hypertension CHF (congestive heart failur e) (CMS/HCC V24, CMS/HCC V28) 08/23/2023 DX:CHF (congestive heart fa ilure) ([facility]) Family History Medical History Relation Name Comments Stroke Maternal Grandmother at 70 Diabetes Other parents, mat gr andmother and pat grandfather Heart attack Paternal Grandfather in his late 60s Breast cancer Sister 57 Blindness Neg Hx Cataracts Neg Hx Glaucoma Neg Hx Macular degeneration Neg Hx Strabismus Neg Hx Relation Name Status Comments Maternal Grandmother Other Paternal Grandfather Sister 57 Alive Social History Tobacco Use Types Packs/Day Years [...] care for your loved ones. For example, childcare provider or elderly care for an older adult? [...] PM EST Sexual Orientation Not on file Last Filed Vital Signs Vital Sign Reading Time Taken Comments Blood Pressure 160/78 04/29/2025 11:59 AM EST Pulse 82 04/29/2025 11:15 AM EST Temperature 36.6 C (97.8 F) 04/29/2025 11:15 AM EST Respiratory Rate 15 04/13/2025 1:59 PM EDT Oxygen Saturation 96% 04/29/2025 11:15 AM EST Inhaled Oxygen Concentration - - Weight 91.7 kg (202 lb 1.6 oz) 04/29/2025 11:15 AM EST Height 172.7 cm (5' 7.99 ) 04/29/2025 11:[address] Body Mass Index 30.74 04/29/2025 11:15 AM EST Plan of Treatment Upcoming Encounters Date Type Department Care Team (Late st Contact Info) Description 06/01/2025 11:00 AM EST Office Visit Adult Medicine [facility] [address] [place] [phone] Kennedi Herman NP [address] [place] [address] 07/15/2025 9:30 AM EST Appointment [facility] Endoscopy [address] [place] [address] Flip Potts MD [address] [place] [address] [address] [place] [address] Health Maintenance Due Date Last Done Comments Drug Screen 1965 Non-Opioid Controlled Substance Agreement 1963 Diabetes: Annual Foot Exam 1973 Hepatitis A Vaccines (1 of 2 - Risk 2-dose series) 1982 Zoster Vaccines (1 of 2) 1982 RSV Immunization Adult Patients (1 - Risk 50-74 years 1-dose series) 2013 Pneumococcal Vaccine: 50+ Years (2 of 2 - PCV) 02/11/2015 02/11/2014 HIV Screening 05/26/2022 Colorectal Cancer Screening: Colonoscopy 10/07/2023 10/06/2013 Diabetes: Annual Urine Albumin-Creatinine Ratio (uACR) 01/27/2025 01/28/2024 COVID-19 Vaccine ( season) 2025 05/28/2022, 08/18/2021, 12/31/2020, Additional history exists Diabetes: Blood Sugar Control Test (HGBA1C) 10/12/2025 04/13/2025, 01/28/2024, 01/28/2024 Diabetes: Annual GFR (Glomerular Filtration Rate) 12/05/2025 12/05/2024, 12/04/2024, 12/03/2024, Additional history exists Hypertension/CHF/CAD Annual BMP Blood Test 12/05/2025 12/05/2024, 12/04/2024, 12/03/2024, Additional history exists Social Influencers of Health Screening 01/20/2026 01/20/2025 Diabetes: Annual Retina Eye Exam 02/05/2026 02/05/2025, 12/10/2023 Cholesterol Screening (Lipid Panel) 05/04/2030 05/04/2025, 10/13/2024, 01/28/2024, Additional history exists DTaP,Tdap,and Td Vaccines (3 - Td or Tdap) 03/28/2032 03/28/2022, 07/26/2011 Hepatitis C Screening Completed 02/19/2023 Depression Screening Completed 12/14/2024, 01/28/20 24 Influenza Vaccine Completed 04/05/2025, , 08/04/2022, Additional history exists HIB Vaccines Aged Out No longer eligi [...] on patient's age to complete this topic Goals Goal Patient Goal Type Associated Problems Recent Progress Patient-Stated? Author Autogenerat ed Goal Care Plan Autogenerated Problem No Felix Hennessy Procedures Procedure Name Priority Date/Time Associated Diagnosis Comments VITAMIN D 25 HYDROXY Routine 05/04/2025 8:58 AM EST Vitamin deficiency LIPID PANEL WITH REFLEX TO DIRECT LDL Routine 05/04/2025 8:58 AM EST Hyperlipidemia, unspecified hyperlipidemia type HEMOGLOBIN AND HEMATOCRIT Routine 04/13/2025 2:50 PM EDT ESRD on hemodialysis ([facility] V24, [facility] V28) HEMOGLOBIN A1C Routine 04/13/2025 2:50 PM EDT Type II diabetes mellitus with nephropathy ([facility] V24, [facility] V28) TRANSTHORACIC ECHOCARDIOGRAM (TTE) COMPLETE Routine 03/30/2025 10:35 AM EDT Fever, unspecified fever cause EXTERNAL DIABETIC RETINA EYE EXAM 02/05/2025 BASIC METABOLIC PANEL Routine 12/05/2024 6:12 AM EDT HM DEPRESSION SCREENING Routine 01/28/2024 HM URINE ALBUMIN CREATININE RATIO Routine 01/28/2024 HEPATITIS C SCREENING Routine 02/19/2023 from Last 3 Months or Most Recently Relevant to Health Maintenance Results * Lipid panel with reflex to direct LDL (05/04/2025 8:58 AM EST) Cholesterol 129 0 - 200 mg/dL 05/04/2025 2:46 PM EST [facility] Triglycerides 76 0 - 150 mg/dL 05/04/2025 2:46 PM EST [facility] HDL 58 >=40 mg/dL 05/04/2025 2:46 PM EST [facility] LDL Calculated 56 0 - 100 mg/dL 05/04/2025 2:46 PM EST [facility] Comment:Estimated LDL Calcul ated using equation: Total cholesterol - HDL cholesterol - (Triglycerides/5) VLDL Cholesterol Kirk 15.2 mg/dL 05/04/2025 2:46 PM EST [facility] Non HDL Chol. (LDL+VLDL) 71 <145 mg/dL 05/04/2025 2:46 PM EST [facility] Chol/HDL Ratio 2.2 0.0 - 4.4 05/04/2025 2:46 PM [facility] Blood Venous blood specimen / Unknown Venipuncture / Unknown 05/04/2025 8:58 AM EST 05/04/2025 8:58 AM EST us Noe IBANEZ LAB BLOOD ORDERABLES Fi nal Result [facility] [address] [place] [address], * (ABNORMAL) Vitamin D 25 hydroxy (05/04/2025 8:58 AM EST) Vit D, 25-Hydroxy 22.9(L) 30.0 - 80.0 ng/mL 05/04/2025 2:37 PM EST [facility] Blood Venous blood specimen / Unknown Venipuncture / Unknown 05/04/2025 8:58 AM EST 05/04/2025 8:58 AM EST Noe Cabrera PA LAB BLOOD ORDERABLES Fi nal Result Performing Organization Address [facility] Co de Phone Number [facility] [address] [place] [address], [place] [phone] * (ABNORMAL) Hemoglobin and hematocrit (04/13/2025 2:50 PM EDT) Hemoglobin 9.6(L) 13.5 - 17.5 g/dL LAB HEMETOLOGY METHOD 04/13/2025 4:27 PM EDT [facility] Hematocrit 30.5(L) 42.0 - 54.0 % LAB HEMETOLOGY METHOD 04/13/2025 4:27 PM EDT [facility] Blood Venous blood specimen / Unknown Venipuncture / Unknown 04/13/2025 2:50 PM EDT 04/13/2025 2:50 PM EDT Kennedi Herman SUPERVISORY GEOGRAPHER LAB BLOOD ORDERABLES Final Re sult Performing Organization Address [facility]/ZIP Co de Phone Number [facility] [address] [place] [address], [place] [phone] * (ABNORMAL) Hemoglobin A1c (04/13/2025 2:50 PM EDT) Hemoglobin A1C 6.7(H) <6.5 % LAB CHEMISTRY METHOD 04/13/2025 8:45 PM EDT [facility] Mean Bld Glu Estim. 146 mg/dL LAB CHEMISTRY METHOD 04/13/2025 8:45 PM EDT [facility] Blood Venous blood specimen / Unknown Venipuncture / Unknown 04/13/2025 2:50 PM EDT 04/13/2025 2:50 PM EDT us Kennedi Herman SUPERVISORY GEOGRAPHER LAB BLOOD ORDERABLES Final Re sult [facility] [address] [place] [address], [place] [phone] * (ABNORMAL) TRANSTHORACIC ECHOCARDIOGRAM (TTE) COMPLETE (03/30/2025 10:35 AM EDT) Left Atrium Minor Breese 5.6 cm CV PACS Left Atrium Major Breese 5.8 cm CV PACS LA Area Sys (A2C) 23 cm2 CV PACS LA Area Sys (A4C) 25 cm2 CV PACS LA Volume (BP) 83 mL CV PACS RA Area 18.7 cm2 CV PACS RA 2D Volume 46 mL CV PACS Aortic Sinus Valsalva 3.7 cm CV PACS Ascending Aorta 3.6 cm CV PACS IVSD 1.6(A) 0.6 - 1.0 cm CV PACS LVIDD 5.3 4.2 - 5.8 cm CV PACS LVIDS 3.8 2.5 - 4.0 cm CV PACS LVOT Diameter 2.7 cm CV PACS LVPWD 1.6(A) 0.6 - 1.0 cm CV PACS MV E' Tissue Velocity Lateral 4 cm/s CV PACS MV E' Tissue Velocity Septal 5 cm/s CV PACS LVOT Area 5.7 cm2 CV PACS MV Deceleration [facility] 2.8 m/s2 CV PACS E Wave Deceleration Time 198 119 - 242 ms CV PACS MV PHT 57 ms CV PACS MV Peak A Mason 0.80 m/s CV PACS MV Peak E Mason 0.60 m/s CV PACS MV Area PHT 3.8 cm2 CV PACS PV Acceleration Time 88 ms CV PACS PV Acceleration Time 88 ms CV PACS RV Diastolic Basal Dimension 3.8 2.5 - 4.1 cm CV PACS RV S' 13 cm/s CV PACS TAPSE 18 mm CV PACS TR Peak Velocity 1.30 m/s CV PACS TR Peak Gradient 7 mmHg CV PACS E/E' Ratio Septal 12 CV PACS E/E' Ratio Averaged 14 CV PACS Relative Wall Thickness ratio 0.60(A) 0.24 - 0.42 CV PACS FS 28 % CV PACS LV Mass 2D 388(A) 96 - 200 g CV PACS Ascending Aorta Index 1.80 cm/m2 CV PACS RA 2D Volume Index 23 18 - 32 mL/m2 CV PACS LVIDD Index 2.65 cm/m2 CV PACS LVIDS Index 1.90 cm/m2 CV PACS E/A Ratio 0.8 0.8 - 2.0 CV PACS E/E' Ratio Lateral 15 CV PACS LA Volume Index (BP) 42 mL/m2 CV PACS LV Mass Index 2D 194 50 - 102 g/m2 CV PACS BSA 2.05 m2 CV PACS Ejection Fraction (BP) 44 % CV PACS Ejection Fraction (A4C) 47 % CV PACS Ejection Fraction (A2C) 42 % CV PACS LV Diastolic Volume (BP) 129 62 - 150 mL CV PACS LV Diastolic Volume Index (BP) 65(A) 34 - 74 mL/m2 CV PACS LV Systolic Volume (BP) 72(A) 21 - 61 mL CV PACS LV Systolic Volume Index (BP) 36(A) 11 - 31 mL/m2 CV PACS LV EDV (A4C) 133 mL CV PACS LV EDV Index (A4C) 67 mL/m2 CV PACS LV ESV (A4C) 70 mL CV PACS LV ESV Index (A4C) 35 mL/m2 CV PACS LV EDV (A2C) 126 mL CV PACS LV EDV Index (A2C) 63 mL/m2 CV PACS LV ESV (A2C) 73 mL CV PACS LV ESV Index (A2C) 37 mL/m2 CV PACS LA Volume (A-L) 71 mL CV PACS LA Volume Index (A-L) 36 mL/m2 CV PACS RV Free Wall Peak S' 13 cm/s CV PACS RA Major Breese 6.2 cm CV PACS RA Major Breese Index 3.1(A) 2.1 - 2.7 cm/m2 CV PACS LV EF MOD 2C 42 % CV PACS LV EF 4C A-L 48 % CV PACS LV EDV 4C A-L 135 mL CV PACS LV Length Sys (A4C) 8.5 cm CV PACS LV Length Delgado (A4C) 9.3 cm CV PACS Left Ventricular Stroke Volume by 2-D Biplane-MOD 57 mL CV PACS Right Ventricular Peak Systolic Pressure 10 mmHg CV PACS Est. RA Pressure 3 mmHg CV PACS Anatomical Region Laterality Modality Ultrasound Narrative 04/04/2025 4:03 PM EDT Left ventricle cavity size is normal. Left ventricular systolic function is mildly decreased with an ejection fraction of 40-45%. LV global hypokinesis is present. Left ventricle moderate hypertrophy. There is Grade II (moderate) diastolic dysfunction. Right ventricle cavity is normal. Right ventricular systolic function is normal. Aortic valve leaflets are mildly thickened. Tricuspid valve leaflets exhibit normal excursion. Trace mitral and tricuspid insufficiency No previous echo for comparison Left Ventricle Left ventricle cavity size is normal. There is moderate hypertrophy. Systolic function is mildly decreased with an ejection fraction of 40-45%. Global LV hypokinesis is present. There is Grade II (moderate) diastolic dysfunction. Global longitudinal strain is -14.2%. Right Ventricle Right ventricle cavity appears normal. Systolic function is normal. Left Atrium Left atrium cavity is mildly dilated. Right Atrium Right atrium cavity is normal. IVC/SVC Inferior vena cava structure is normal. RA pressures is estimated to be 3 mmHg (IVC diameter <21 mm and decreases >50% during inspiration). Mitral Valve The leaflets are mildly thickened. There is mild regurgitation. There is no evidence of mitral valve stenosis. Tricuspid Valve The leaflets exhibit normal excursion. There is trace regurgitation. The RVSP is estimated at 10 mmHg. Aortic Valve The aortic valve is trileaflet. The leaflets are mildly thickened. There is trace regurgitation. There is no evidence of aortic valve stenosis. Pulmonic Valve Pulmonic valve structure is normal. There is trace pulmonic valve regurgitation. Ascending Aorta The aorta appears normal in size. Pericardium There is no pericardial effusion. Study Details Overall the study quality was adequate. Additional technique includes myocardial strain. us Dale IBANEZ CV ECHO PROCEDURES Final Result * External Diabetic Retina Eye Exam Report (02/05/2025) Anatomical Region Laterality Modality Ultrasound us Provider [facility] US PROCEDURES Final Result * (ABNORMAL) Basic metabolic panel (12/05/2024 6:12 AM EDT) Sodium 136 133 - 145 mmol/L LAB [...] IBANEZ LAB BLOOD ORDERABLES Kayla l Result [facility] [address] [place] [address], [place] [phone] * Urine Albumin Creatinine Ratio (01/28/2024) Urine Albumin Creatinine Ratio abstracted Historical Provider MD HEALTH MAINTENANCE Final Result * Depression Screening (01/28/2024) Pathologist [facility] Depression Screening abstracted Historical Provider MD HEALTH MAINTENANCE Final Result * Hepatitis C Screening (02/19/2023) Pathologist [facility] Hepatitis C Screening abstracted Historical Provider MD HEALTH MAINTENANCE Final Result from Last 3 Months or Most Recently Relevant to Health Maintenance Additional Health Concerns Active Problems Noted Date Diagnosed Date Autogenerated Problem 05/26/2025 Insurance [facility] Advance Directives * Full [...] currently active code status orders. Care Teams Manager Outreach Relationship Specialty Start Date End Date Chris Boucher MD [address] [place] [phone] PCP - General Internal Medicine 09/06/14
--- OUTSIDE RECORDS SUMMARY | 2025-06-01 08:11 | XMS_ITS | Encounter Summary ---
Author Organization [employer] Address [address] [place] [address] Care Team Providers Care Unloader Name Role Phone Chris Boucher MD Primary Care Provider [phone] Encounter Details Date Type Department Care Team (Late st Contact Info) Description 04/09/2025 Billing Patient Not Present Adult Medicine [address] [phone] Chris Boucher MD [address] [place] [address] Social History Tobacco Use Types Packs/Day Years [...] care for your loved ones. For example, children's nursery assistant or elderly care for an older adult? [...] Upcoming Encounters Date Type Department Care Team ([facility] st Contact Info) Description 06/01/2025 11:00 AM EST Office Visit Adult Medicine [address] [phone] Kennedi Herman NP [address] [place] [address] 07/15/2025 9:30 AM EST Appointment [facility] Endoscopy [address] [place] [phone] Flip Potts MD [address] [address] documented as of this encounter Visit Diagnoses Not on filedocumented in this encounter Additional Health Concerns Assessment Noted Time PHQ-9 Depression Total Score: 10 12/14/ 025 8:34 PM EDT documented as of this encounter Care Teams Unloader Relationship Specialty Start Date End Date Chris Boucher MD [address] [place] [address] PCP - General Internal Medicine 09/06/14 documented as of this encounter
--- OUTSIDE RECORDS SUMMARY | 2025-06-01 08:11 | XMS_ITS | Encounter Summary ---
Author Organization [employer] Address [address] [place] [address] Care Team Providers Care Soap Press Feeder Name Role Phone Chris Boucher MD Primary Care Provider [phone] Encounter Details Date Type Department Care Team (Late st Contact Info) Description 05/27/2025 Telephone [facility] [address] [place] [address] [place] Leonard Social History Tobacco Use Types Packs/Day Years [...] care for your loved ones. For example, director child abuse therapy or elderly care for an older adult? [...] as of this encounter Progress Notes * [place] Leonard - 05/27/2025 11:49 AM EST Community Health Worker Note 05/27/2025 11:49 AM EST Patient: Dillon Lucio : 1965 Age: 60 y.o. Insurance: Payor: [employer] PL[employer] / Plan: [employer] MEDICAID / Product Type: *No Product type* / Primary Care Doctor: Chris Boucher MD Visit Type: Telephone Call Social Influencers of Health Screening Completed? SIOH assessment completed within the last 365 days. No reported changes. Patient social needs have been fully addressed. The patient family is receiving nutrition assistance from [place] through a food voucher and did receive kitchen supplies. CHW attempted to reach out to follow up,but was unreachable. CHW left HIPAA compliant voicemail with contact information Currently there are no outstanding social needs. Patient caregiver possesses contact information for this greeting card writer and is aware of how to reach in case that requires any assistance, resources or support. The patient's enrollment in the program will now be formally closed. Total Minutes Spent: 0:47 Account Development Executive Flowsheet Needed: no [place] Leonard Community Health Worker documented in this encounter Plan of Treatment Upcoming Encounters Date Type Department Care Team (Late st Contact Info) Description 06/01/2025 11:00 AM EST Office Visit Adult Medicine [facility] [address] [place] [phone] Kennedi Herman NP [address] [place] [address] 07/15/2025 9:30 AM EST Appointment [facility] Endoscopy [address] [place] [phone] Flip Potts MD 299 [facility] [address] [place] [address] documented as of this encounter Goals Goal Patient Goal Type Associated Problems Recent Progress Patient-Stated? Author Autogenerat ed Goal Care Plan Autogenerated Problem No Felix Hennessy documented as of this encounter Visit Diagnoses Not on filedocumented in this encounter Additional Health Concerns Active Problems Noted Date Diagnosed Date Autogenerated Problem 05/26/2025 Assessment Noted Time PHQ-9 Depression Total Score: 10 12/14/ 025 8:34 PM EDT documented as of this encounter Care Teams Soap Press Feeder Relationship Specialty Start Date End Date Chris Boucher MD [address] [place] [address] PCP - General Internal Medicine 09/06/14 documented as of this encounter
--- OUTSIDE RECORDS SUMMARY | 2025-06-01 08:11 | XMS_ITS | Data Portability ---
Author Organization [facility], [address] Address [address] [place] [address] Assessment No assessment recorded. Plan of Treatment [...] Name and Address Organization Details Recorded Time -UDS Send Out Template DOT completed DO [facility] 06/08/2022 11:09:39 Imaging Results None recorded. Procedure [...] Diagnosis SNOMED-CT Code Diagnosis ICD10 Code Diagnosis IMO Codes Diagnosis Note [id number] [address] [place] [address] 11/28/2021 16:43:51 11/28/2021 18:50:06 [id number] [address] [place] [address] 04/02/2018 15:05:18 04/02/2018 15:37:34 [id number] SAMUEL MARQUEZ MD [address] [place] [address] 06/08/2022 08:32:26 06/08/2022 14:21:11 History and physical examination, pre-employment [id number] Z02.1 Documentat ion for this visit can [...] ID Guarantor Name 06/08/2022 OC-ESCREEN Dillon Lucio [id number] Dillon Lucio
--- OUTSIDE RECORDS SUMMARY | 2025-06-01 08:11 | XMS_ITS | Encounter Summary ---
Author Organization [employer] Address [address] [place] [address] Care Team Providers Care Employee Development Manager Name Role Phone Chris Boucher MD Primary Care Provider [phone] Reason for Visit * Reason Onset Date Comments Medication List Needed 05/25/2025 Encounter Details Date Type Department Care Team ([facility] st Contact Info) Description 05/25/2025 Telephone Adult Medicine [address] [phone] Chris Boucher MD [address] [place] [phone] Social History Tobacco Use Types Packs/Day Years [...] ed Within the last 3 months, ho geovanni many times did you visit the emergency [...] care for your loved ones. For example, teacher early childhood development or elderly care for an older adult? [...] as of this encounter Progress Notes * Veda Durand - 05/28/2025 11:54 AM EST Which office is calling? [facility] Full name of caller: Candelario The caller is Superintendent Plant Protection Is the caller at the patients home?: no Reason for call: Requesting call back to review medication list. Does caller need an urgent call back? yes Was CONTACT Telephone # obtained above?: yes Fax #: [phone] * Laina Mccallum [place] - 05/26/2025 3:43 PM EST Med list faxed over * Jeri Olguin - 05/26/2025 11:19 AM EST [facility] [place] [facility] [place] med list faxed dale, please * Veda Durand - 05/25/2025 4:13 PM EST Which office is calling? [facility] Full name of caller: Candelario The caller is Superintendent Plant Protection Is the caller at the patients home?: no Reason for call: Requesting current medication list, would like faxed if not able to call back. Does caller need an urgent call back? yes Was CONTACT Telephone # obtained above?: yes Fax #: [phone] documented in this encounter Plan of Treatment Upcoming Encounters Date Type Department Care Team (Late st Contact Info) Description 06/01/2025 11:00 AM EST Office Visit Adult Medicine [facility] [address] [place] [address] Kennedi Herman NP [address] [place] [address] 07/15/2025 9:30 AM EST Appointment [facility] Endoscopy [address] [place] [address] lFip Potts MD 299 [facility] [address] [place] [address] documented as of this encounter Goals Goal [...] documented as of this encounter Care Teams Employee Development Manager Relationship Specialty Start Date End Date Chris Boucher MD [address] [place] [address] PCP - General Internal Medicine 09/06/14 documented as of this encounter
--- OUTSIDE RECORDS SUMMARY | 2025-06-01 08:11 | XMS_ITS | Encounter Summary ---
Author Organization [employer] Address [address] [place] [address] Care Team Providers Care Dielectric Press Operator Name Role Phone Chris Boucher MD Primary Care Provider [phone] Encounter Details Date Type Department Care Team (Late st Contact Info) Description 05/08/2025 Results Follow-Up Adult [address] [phone] Noe Cabrera PA [address] [place] [address] Social History Tobacco Use Types Packs/Day Years [...] care for your loved ones. For example, summer child caregiver or elderly care for an older adult? [...] on file documented as of this encounter Ordered Prescriptions Prescription Sig Dispense Quantity Refills Last Filled Start Date End Date cholecalciferol (VITAMIN D-3) 50 mcg (2,000 unit) tablet Take 1 tablet (2,000 Units total) by mouth 1 (one) time each day. 90 tablet 1 05/08/2025 documented in this encounter Plan of Treatment Upcoming Encounters Date Type Department Care Team (Late st Contact Info) Description 06/01/2025 11:00 AM EST Office Visit Adult Medicine [facility] [address] [place], [place] [phone] Kennedi Herman COOKER SYRUP [address] [place], [place] 07/15/2025 9:30 AM EST Appointment [facility] Endoscopy [address] [place] [address] Flip Potts MD [address] [address] documented as of this encounter Visit Diagnoses Not on filedocumented in this encounter Additional Health Concerns Assessment Noted Time PHQ-9 Depression Total Score: 10 025 8:34 PM EDT documented as of this encounter Care Teams Dielectric Press Operator Relationship Specialty Start Date End Date Chris Boucher MD [address] [place], [place] PCP - General Internal Medicine 09/06/14 documented as of this encounter
--- OUTSIDE RECORDS SUMMARY | 2025-06-01 08:11 | XMS_ITS | Encounter Summary ---
Author Organization [facility] Address [address] [place] [address] Care Team Providers Care Data Analytics Architect Name Role Phone Chris Boucher MD Primary Care Provider [phone] Encounter Details Date Type Department Care Team (Late st Contact Info) Description 04/13/2025 Results Follow-Up Adult Medicine [facility] [address] [place] [address] Kennedi Herman, LICENSED INSURANCE SALES AGENT [address] [place], [place] Social History Tobacco Use Types Packs/Day [...] for your loved ones. For example, child welfare consultant or elderly care for an older adult? [...] as of this encounter Progress Notes * Yu Pop - 04/15/2025 2:23 PM EDT Patient returning your call [phone] documented in this encounter Plan of Treatment Upcoming Encounters Date Type Department Care Team (Late st Contact Info) Description 06/01/2025 11:00 AM EST Office Visit Adult Medicine [facility] [address] [place], [place] [phone] Kennedi Herman NP [address] [place], [place] 07/15/2025 9:30 AM EST Appointment [facility] Endoscopy [address] [place] [phone] Flip Potts MD [address] [address] documented as of this encounter Visit Diagnoses Not on filedocumented in this encounter Additional Health Concerns Assessment Noted Time PHQ-9 Depression Total Score: 10 025 8:34 PM EDT documented as of this encounter Care Teams Data Analytics Architect Relationship Specialty Start Date End Date Chris Boucher MD [address] [place], [place] PCP - General Internal Medicine 09/06/14 documented as of this encounter
== END 2025-06-01 08:03 ==
LOC: HO.US 08:02
PROVIDERS: PCP Internal Medicine; Visit Provider Internal Medicine Cardiovascular Disease
DX: I95.9 Hypotension, unspecified (principal)
CPT/HCPCS: 76775; 93975

== ENCOUNTER → 2025-06-01 08:04 | Outpatient (BNV) | payer OTHER, SELFPAY | PROVIDERS: PCP Internal Medicine; Visit Provider Radiology Diagnostic Radiology | DX: I95.9 Hypotension, unspecified (principal); I70.1 Atherosclerosis of renal artery | CPT/HCPCS: 93975 ==